=== PATIENT | female | born 1950 ===

== ENCOUNTER 2018-12-16 18:00 | Inpatient (IN) | payer OTHER ==
[2018-12-16 18:29] VITALS: BMI 30.7
--- NOTE | 2018-12-16 19:18 | PDOC ---
History of Present Illness - General Chief Complaint: Altered Mental Status Stated Complaint: AMS - History of Present Illness Initial Comments: 12/16/18 19:15 68 yo Female with PMH HTN, HLD, CHF?, Recent cath 3 weeks ago at [facility]?, very poor historian, comes from home stating her son told her to come for evaluation. She is confused and unable to adequately explain why she is here. Going through thorough review of systems she complains of neck weakness and pain , chest pain similar to her pain 3 weeks ago prior to her procedure, abdominal pain, and some confusion. She denies other symptoms. Of note she is unable to state how she got here but is able to confirm ambulence when prompted. She is oriented to time place and self, however is unable to explain exactly why she is here or what her current concerns are. Past History - Past Medical History Allergies/Adverse Reactions: Allergies Allergy/AdvReac Type Severity Reaction Status Date / Time No Known Allergies Allergy Verified 12/16/18 18:28 Cardiac Disorders: Yes (a fib, possible CABG 11/2018) COPD: No CHF: Yes Diabetes: Yes HTN: Yes Hypercholesterolemia: Yes - Surgical History Cardiac Surgery: Yes (mitral valve replacement.) - Suicide/Smoking/Psychosocial Hx Smoking History: Never smoked Have you smoked in the past 12 months: No Information on smoking cessation initiated: No Hx Alcohol Use: No Drug/Substance Use Hx: No *Physical Exam - Vital Signs Last Vital Signs Temp Pulse Resp BP Pulse Ox 100.6 F H 109 H 16 96/61 96 12/16/18 18:39 12/16/18 18:00 12/16/18 18:00 12/16/18 18:00 12/16/18 18:00 - Physical Exam Comments: 12/16/18 19:16 GEN: A&O (though confused), no acute distress HEENT: dry mucus membranes NECK: supple, no lymphadenopathy HEART: Irregularly irregular LUNGS: CTA b/l ABDOMEN: Soft, nontender EXTREMITIES: trace peripheral edema, no calf tenderness NEURO: Appropriate responses, though alternates between languages, confused but appropriate, 3/5 strength LLE, 4/5 strength RLE, 5/5 b/l UE, difficult to comply with senation testing. Moderate Sedation - Procedure Monitoring Vital Signs: Procedure Monitoring Vital Signs Temperature 100.6 F H 12/16/18 18:39 Pulse Rate 109 H 12/16/18 18:00 Respiratory Rate 16 12/16/18 18:00 Blood Pressure 96/61 12/16/18 18:00 O2 Sat by Pulse Oximetry (%) 96 12/16/18 18:00 ED Treatment Course - LABORATORY CBC & Chemistry Diagram: 12/16/18 20:41 12/16/18 20:41 Medical Decision Making - Medical Decision Making 12/16/18 19:44 68 yo female with questionable PMH (first visit here) unable to give good history, febrile, tachycardic, confused with chest pain similar to recent chest pain which apparently led to cath at [facility]. Will pursue full septic and cardiac workup at this time. No focal neurological deficits though somewhat unable to comply with sensation testing, do not feel this is acute CVA at this point. Will check, CBC, CMP, Cardiac Profile, EKG, UA/ culture, blood culture, CXR, Lactic acid, VBG (as part of septic workup), influenza swab and reevaluate following labs 12/16/18 20:09 Discussed with son who states she had a recent cardiac cath and has been at [facility] for rehab for about 12 weeks or so. States she was not satisfied and returned home in the last few days. States she has generally been complaining of not feeling well the last few days since being home. He called EMS to bring her in for evaluation. He is unable to come in at this time as his father (her ) apparently has had a CVA with significant impairment. Labs and imaging pending. EKG with A-flutter with variable AV block 12/16/18 20:57 UA negative 12/17/18 01:19 Pt states her pain is improved following IV tylenol and 1L bolus and that she is feeling somewhat better. She is still slightly confused and unable to ambulate. Can transfer from bed to wheelchair with significant assistance 12/17/18 02:07 Lactic acid improving following one Liter. Will discuss with hospitalist for admission considering patient is still confused and unable to ambulate with some complaint of dizziness. Patient will likely need placement in SNF or rehab facility and neurological evaluation and management for what is likely Moderate to severe Parkinson's and possible dimentia *DC/Admit/Observation/Transfer Diagnosis at time of Disposition: Need for assistance due to unsteady gait, Parkinsonian tremor, Subcortical dementia - Discharge Dispostion Condition at time of disposition: Guarded Decision to Admit order: Yes - Referrals - Patient Instructions - Post Discharge Activity
--- NOTE | 2018-12-16 20:30 | PDOC ---
Attending Attestation - HPI HPI: 12/16/18 20:58 The patient is a 68 year old female, with a significant past medical history of HTN, HLD, and recent cardiac catheterization, who presents to the emergency department with, dizziness. Patient is a poor historian and speaks primarily Yoruba. Allergies: NKDA - Physicial Exam PE: 12/16/18 20:58 GENERAL: Well-appearing, well-nourished. No apparent distress. HEENT: Normocephalic, atraumatic. PERRL, EOM intact. CARDIOVASCULAR: Tachycardic. Irregularly, irregular. PULMONARY: Clear to auscultation bilaterally. ABDOMEN: Soft, non-distended, non-tender. EXTREMITIES: Normal ROM in all four extremities. No gross deformities. SKIN: Warm, dry. No rash NEUROLOGICAL: Poor historian. No focal neurological deficits. <Stephen Jara - Last Filed: 12/16/18 20:58> - Resident Resident Name: Calos Bowens - ED Attending Attestation I have performed the following: I have examined & evaluated the patient, The case was reviewed & discussed with the resident, I agree w/resident's findings & plan, Exceptions are as noted - HPI HPI: 12/16/18 20:27 68 yo female - Medical Decision Making 12/17/18 01:41 68-year-old female brought in by ambulance from her home for reported altered mental status. She lives with his son and he called for an ambulance. Until recently the patient was living at a rehabilitation center ,[facility], located in [place].. She had some disagreements with the staff and wanted to leave. She had only spent one day with her son at home. Past medical history insulin-dependent diabetes, coronary artery disease, 3 weeks ago she had a cardiac catheterization was [facility], [facility], had hep c that was treated Spoke with her son. Her primary care physician is Dr.Santos Amaro her pharmacy [address] [phone] SOCIAL HISTORY _ lives with son 12/17/18 02:02 12/17/18 02:22 pt has some dementia, has difficulty w ambulation neg trop elevated lactic acid that decreased with IV fluids ct scan head negative for any acute intracranial pathology pt ti be admitted <Lauren Beckman - Last Filed: 12/17/18 02:26> Attestations - Attestations 12/16/18 21:08 Documentation prepared by Stephen Jara, acting as medical lab technologist for Lauren Beckman MD. <Stephen Jara - Last Filed: 12/16/18 20:58>
[2018-12-16 20:52] LABS: URINE APPEARANCE SLCLOUDY; URINE BILIRUBIN NEGATIVE (<2.0 mg/dL); URINE COLOR LTYELLOW; URINE GLUCOSE (UA) 1+ (NEGATIVE); URINE KETONE NEGATIVE (NEGATIVE); URINE LEUK ESTERASE NEGATIVE (NEGATIVE); URINE NITRITE NEGATIVE (NEGATIVE); URINE PROTEIN NEGATIVE (NEGATIVE)
[2018-12-16 21:04] LABS: BASO % 0.6 % (0-2.0); EOS % 0.7 % (0-4.5); HEMATOCRIT 34.8 % (32.4-45.2); HEMOGLOBIN 11.7 GM/dL (10.7-15.3); LYMPH % 20.1 % (8-40); MCH 28.9 pg (25.7-33.7); MCHC 33.6 g/dl (32.0-36.0); MEAN CELL VOLUME 86.1 fl (80-96); MEAN PLT VOLUME 9.1 fl (7.5-11.1); MONO % 6.5 % (3.8-10.2); NEUT % 72.1 % (42.8-82.8); PLATELET COUNT 321 K/MM3 (134-434); RBC 4.05 M/mm3 (3.60-5.2); RDW 17.8 % (11.6-15.6); WHITE BLOOD COUNT 11.7 K/mm3 (4.0-10.0)
[2018-12-16] MEDS ORDERED: LACTATED RINGERS SOLUTION 1000 ML INFUS.BAG IV ONE (21:32)
[2018-12-16 21:49] LABS: ALK PHOS 87 U/L (45-117); ANION GAP 12 MMOL/L (8-16); BILIRUBIN,TOTAL 0.9 mg/dL (0.2-1); BLOOD UREA NITROGEN 9 mg/dL (7-18); CALCIUM 9.2 mg/dL (8.5-10.1); CHLORIDE 99 mmol/L (98-107); CO2 24 mmol/L (21-32); CREATININE 0.9 mg/dL (0.55-1.3); GLUCOSE,RANDOM 198 mg/dL (74-106); POTASSIUM 4.4 mmol/L (3.5-5.1); SGOT/AST 23 U/L (15-37); SGPT/ALT 24 U/L (13-61); SODIUM 135 mmol/L (136-145)
[2018-12-16] MEDS ORDERED: ACETAMINOPHEN 1000 MG/100 ML VIAL (NON FORMULARY) IVPB ONE (22:53)
[2018-12-16] MEDS ORDERED: ACETAMINOPHEN INJECTION 100 ML IVPB ONE (23:07)
[2018-12-17] MEDS ORDERED: LACTATED RINGERS SOLUTION 1,000 ML/1,000 ML INFUS.BAG IV SCH (03:15)
--- NOTE | 2018-12-17 03:15 | PN ---
Teaching Attending Note Name of Resident: Humera Alanis ATTENDING PHYSICIAN STATEMENT I saw and evaluated the patient. I reviewed the resident's note and discussed the case with the resident. I agree with the resident's findings and plan as documented. SUBJECTIVE: Seen and examined; please refer to resident note for further historical documentation. Dr Lassiter translated for ER and MS3 (fluent in Yakut) translated for our team; history was further limited by baseline neuro status with likely dementia elements (to be discussed under A and P). She presents from home with weakness, dizziness, chest pain, and abdominal pain; she also endorses a history of dysuria. She has no records at this hospital and this is her first time here; she was brought here from home in [place]. She recently was DCd from the [facility] in [place] due to not getting along with her roommate and was sent home yesterday; son called EMS to bring in today. Symptoms are nonspecific. She is found to be febrile but with stable hemodynamics; lactate was initially positive but did trend down with 1L of IVF. She appeared dehydrated and was keenly responsive and answered questions but was somewhat slow in her responses. Old records pending from [facility] and her old facility; have called several times. 10 sys ROS done and negative aside from HPI PMH (appears to be HTN, HLD, CHF, recent cath with potential MV repair? done several weeks ago at [facility]), PSH, Family hx, Social hx reviewed Medication list reviewed; pending reconciliation OBJECTIVE: VS, labs, imaging reviewed NAD, AAO, resting comfortably in bed NC AT EOMI PERRLA; tacky mm's RRR s1/2 no gallops or rubs; slight systolic murmur noted Lungs CTAB, w/ sym exp Mildly tender ND +BS CN2-12 wnl, no fnd, slow responses, MCI at least aparent when questioned EKG reviewed; pending prior studies for comparison CT prelim read shows indeterminate fracture of T11 vertebral body with some characteristics suggesting it is recent. Cardiomegaly noted. Somewhat distended gallbladder. Large amount of stool in colon that is not yet impacted CT head unremarkable ASSESSMENT AND PLAN: Patient presents with various complaints (Abdominal pain, chest pain, dysuria, dizziness) found to have slightly elevated lactate, mild tachycardia, compression fx T11 (likely new), and severe constipation bordering on impaction. She had a recent cath (+MV repair?) in [place] and recently left the nursing facility for personal reasons. History is limited due to no old records, etc. Son states that she had the cath but was unsure what was done with the procedure. Dr. Lassiter saw in the ER and stated that the patient likely has subcortical dementia and at least moderate Parkinson's and will be consulted. PMH significant for aflutter on eliquis (she actually remembers she used to be on xarelto), likely CHF, likely HTN. HLD. Pending records. 1) AMS vs. dementia -Seen by Dr Lassiter in ER; concern for subcortical dementia and PD (at least moderate). Consulting him; will defer further treatment and monitoring to his service. will order seizure precautions and neuro checks -Fall precautions -She is keenly responsive but with slow thought progression and marked forgetfulness 2) Low-grade fever with elevated lactate -Resolved with hydration; restart lasix when clinically appropriate. Investigating source. CT shows some features suggestive of cirrhosis, re- checking UA (claims dysuria but first one is negative). Had diarrhea so can check lactoferrin/cdif/WBCs but no colitis was seen on the CT, nor was there any diverticulitis, etc. No meningeal signs. 3) Recent Cath -Indicates there may have been something done with her MV vs. standard cath; will go ahead and obtain old records. They are pending being faxed over as this note is written. 4) Likely CHF -Will check old records if no echo recently then will check; monitor QD weights and strict Is and Os. On home lasix (verified with her pharmacy) and got fluids overnight with no issues with her volume status. Will monitor fluid status this AM, consider CV consult, and restart the lasix when clinically appropriate. On low dose IVF now; can likely stop if stable in the AM. 5) Compression Fx -Investigating if kyphoplasty done here; will involve appropriate specialists in the AM an provide pain control. When old records come can check if this is indeed new as some radiographic features suggest 6) HLD -Continue statin 7) A flutter -Continue eliquis, rate control. Didn't get PM dose likely explaining the tachycardia 8) DM -Continue home insulin with SSI 9) Severe constipation with stated diarrhea -PRN miralax and consider disimpacting. The diarrhea could be overflow around it but will test.
--- NOTE | 2018-12-17 03:17 | HP ---
CHIEF COMPLAINT: abdominal pain, AMS PCP: Dr. Poncho Amaro ([place]) HISTORY OF PRESENT ILLNESS: 68F w/ pmhx of HTN/HLD, ? CHF, recent catheterization about x3 weeks ago, was brought to the ED by her son due to altered mental status since last Sunday. Per pt's son, pt was recently hospitalized at [facility] and underwent went a cardiac catheterization with some questionable "mitral valvular disease" . After discharge, she was sent to rehab facility to continue PT and remained there for 1 week, however when her son came to visit last Sunday, he was dissatisfied with the treatment at the facility and found several bruises on his mother. As a result, he chose to pull his mother out of the facility and brought her home. Unfortunately, starting the following Sunday, he started noticing that his mother was having lapses in memory, getting more lethargic, and would start switching between speaking in her [place] tongue (Spanish) and Chilean. He denies any prior history of neurological problems and states at baseline his mom is usually sharp. He also says since the cardiac cath, she has been too weak to walk herself which is why she was originally sent to the rehab facility to continue PT. Upon review of systems, pt states she has persistent non-radiating L-sided chest pain that is similar in nature to the chest pain she had prior to the cardiac cath. Limited ROS could be ascertained from patient due to current mental status. Request for records have been sent to [facility] for further review. POC: Franc Sanchez (son) - ER course was notable for: (1) Temp 100.6, HR 109, BP 96/61, WBC 11.7, Na 135, Glu 198, Lac 3.2 > 2.7 (2) Trops neg x1, U/A neg, Rapid flu A/B neg (3) IV Tylenol, LR 1L Recent Travel: Denies PAST MEDICAL HISTORY: HTN HLD ? CHF recent catheterization PAST SURGICAL HISTORY: Denies Social History: Smoking: Denies Alcohol: Denies Drugs: Denies Family History: DM Allergies No Known Allergies Allergy (Verified 12/16/18 18:28) Home Medications Medication Instructions Recorded Apixaban [Eliquis] 5 mg PO BID 12/17/18 Aspirin [Ecotrin] 81 mg PO DAILY 12/17/18 Famotidine [Pepcid] 40 mg PO DAILY 12/17/18 Fluphenazine HCl 5 mg PO DAILY 12/17/18 Folic Acid 1 mg PO DAILY 12/17/18 Insulin Glargine,Hum.rec.anlog 24 unit SQ HS 12/17/18 [Lantus] Insulin Lispro [Humalog] 15 unit SQ AM 12/17/18 Metoprolol Tartrate 125 mg PO Q8H 12/17/18 Rosuvastatin Calcium [Crestor] 20 mg PO HS 12/17/18 REVIEW OF SYSTEMS CONSTITUTIONAL: +generalized weakness, +fever Absent: fever, chills, diaphoresis, malaise, loss of appetite, weight change HEENT: Absent: rhinorrhea, nasal congestion, throat pain, throat swelling, difficulty swallowing, mouth swelling, ear pain, eye pain, visual changes CARDIOVASCULAR: +chest pain Absent: chest pain, syncope, palpitations, irregular heart rate, lightheadedness , peripheral edema RESPIRATORY: Absent: cough, shortness of breath, dyspnea with exertion, orthopnea, wheezing, stridor, hemoptysis GASTROINTESTINAL: +abd pain, +watery diarrhea, +vomiting Absent: abdominal distension, nausea, vomiting, constipation GENITOURINARY: +dysuria Absent: frequency, urgency, hesitancy, hematuria, flank pain, genital pain MUSCULOSKELETAL: +neck pain L posterior side Absent: myalgia, arthralgia, joint swelling, back pain, neck pain NEUROLOGIC: +dizziness, +mental status changes Absent: headache, focal weakness or paresthesias, unsteady gait, seizure PHYSICAL EXAMINATION Vital Signs - 24 hr 12/16/18 12/16/18 18:00 18:39 Temperature 97.3 F L 100.6 F H Pulse Rate 109 H Respiratory 16 Rate Blood Pressure 96/61 O2 Sat by Pulse 96 Oximetry (%) GENERAL: Awake, alert and oriented. NAD. Pleasant female. HEENT: AT/NC. EOMI. DENNY. NECK: Normal range of motion, supple without lymphadenopathy, JVD, or masses. LUNGS: CTA B/L. No wheezes noted. HEART: Irregularly irregular. No murmurs noted. ABDOMEN: Soft, mild TTP in b/l lower quadrants. No guarding or rebound tenderness. MUSCULOSKELETAL: Normal range of motion at all joints. No bony deformities or tenderness. EXTREMITIES: No peripheral edema noted b/l. 2+ dorsalis pedis pulses and radial pulses b/l. NEUROLOGICAL: Normal speech. Facial symmetry noted. Laboratory Results - last 24 hr 12/16/18 12/16/18 12/16/18 19:30 20:22 20:41 WBC 11.7 H RBC 4.05 Hgb 11.7 Hct 34.8 MCV 86.1 MCH 28.9 MCHC 33.6 RDW 17.8 H Plt Count 321 MPV 9.1 Absolute Neuts (auto) 8.5 H Neutrophils % 72.1 Lymphocytes % 20.1 Monocytes % 6.5 Eosinophils % 0.7 Basophils % 0.6 Nucleated RBC % 0 PT with INR Cancelled INR Cancelled PTT (Actin FS) Cancelled Sodium Potassium Chloride Carbon Dioxide Anion Gap BUN Creatinine Creat Clearance w eGFR Random Glucose Lactic Acid Calcium Total Bilirubin AST ALT Alkaline Phosphatase Creatine Kinase CK-MB (CK-2) Troponin I Total Protein Albumin Urine Color Ltyellow Urine Appearance Slcloudy Urine pH 7.0 Ur Specific Murphy 1.008 L Urine Protein Negative Urine Glucose (UA) 1+ H Urine Ketones Negative Urine Blood Negative Urine Nitrite Negative Urine Bilirubin Negative Urine Urobilinogen 2.0 H Ur Leukocyte Esterase Negative Influenza A (Rapid) Influenza B (Rapid) 12/16/18 12/16/18 12/16/18 20:41 20:41 20:52 WBC RBC Hgb Hct MCV MCH MCHC RDW Plt Count MPV Absolute Neuts (auto) Neutrophils % Lymphocytes % Monocytes % Eosinophils % Basophils % Nucleated RBC % PT with INR INR PTT (Actin FS) Sodium 135 L Potassium 4.4 Chloride 99 Carbon Dioxide 24 Anion Gap 12 BUN 9 Creatinine 0.9 Creat Clearance w eGFR > 60 Random Glucose 198 H Lactic Acid 3.2 H* Calcium 9.2 Total Bilirubin 0.9 AST 23 ALT 24 Alkaline Phosphatase 87 Creatine Kinase 59 CK-MB (CK-2) < 1.0 Troponin I < 0.02 Total Protein 8.0 Albumin 3.0 L Urine Color Urine Appearance Urine pH Ur Specific Murphy Urine Protein Urine Glucose (UA) Urine Ketones Urine Blood Urine Nitrite Urine Bilirubin Urine Urobilinogen Ur Leukocyte Esterase Influenza A (Rapid) Negative Influenza B (Rapid) Negative 12/17/18 01:01 WBC RBC Hgb Hct MCV MCH MCHC RDW Plt Count MPV Absolute Neuts (auto) Neutrophils % Lymphocytes % Monocytes % Eosinophils % Basophils % Nucleated RBC % PT with INR INR PTT (Actin FS) Sodium Potassium Chloride Carbon Dioxide Anion Gap BUN Creatinine Creat Clearance w eGFR Random Glucose Lactic Acid 2.7 H* Calcium Total Bilirubin AST ALT Alkaline Phosphatase Creatine Kinase CK-MB (CK-2) Troponin I Total Protein Albumin Urine Color Urine Appearance Urine pH Ur Specific Murphy Urine Protein Urine Glucose (UA) Urine Ketones Urine Blood Urine Nitrite Urine Bilirubin Urine Urobilinogen Ur Leukocyte Esterase Influenza A (Rapid) Influenza B (Rapid) CONSULT: Neuro- Dr. Lassiter Cardio- Dr. Gallo IMAGING: * EKG: a fib, HR 107, QTc 491 ms (no prior EKG to compare) * CXR: * Head CT: No acute IC pathology. * CTAP: pending ASSESSMENT/PLAN: 68F w/ pmhx of HTN/HLD, ? CHF, recent catheterization about x3 weeks ago, was brought to the ED by her son due to altered mental status and generalized weakness. #Acute Metabolic Encephalopathy; r/o infectious vs. neurological etiology -Pt states he started noticing mental status changes this past Sunday and has had generalized weakness since cardiac procedure at [facility]. -Head CT neg -Neuro consult ordered -Initial U/A neg, repeat U/A ordered -BCx/UCx ordered -Initial lactate 3.2 > 2.7; Pt was also febrile at 100.6, and had WBC 11.7, will treat empirically with IV Ceftriaxone for now. -CTAP ordered to r/o intra-abdominal source of infection -PT #Chest pain -Pt complaining of similar chest pain prior to cath that was done -ASA 81 mg QD -Repeat trop; Mag/Phos, A1c, lipase ordered -Cardio consult (Dr. Gallo) -EKG noted above; afib, HR 107, QTc prolonged at 491 ms -avoid QTc prolonging agents #Diarrhea -Stool cx, fecal WBCs, Cdiff tox/Ag, lactoferrin ordered -Monitor BM #Afib Cont home med: Metoprolol Tartrate 125 mg PO Q8H (hold if systolic <120) #HTN Cont home med: Metoprolol Tartrate 125 mg PO Q8H (hold if systolic <120) #HLD Cont home med: Crestor 20 mg PO HS #Prophylaxis -Lovenox 40 QD -Ranitidine 300 QD #FEN -LR @ 42 -recheck jennifer in AM (Na) -sodium-controlled diet dispo -admit to tele inpt -full code -medications have been reconciled with pharmacy -record release form sent to [facility], awaiting records Visit type - Emergency Visit Emergency Visit: Yes ED Registration Date: 12/17/18 Care time: The patient presented to the Emergency Department on the above date and was hospitalized for further evaluation of their emergent condition. - New Patient This patient is new to me today: Yes Date on this admission: 12/18/18 - Critical Care Critical Care patient: No
[2018-12-17] MEDS ORDERED: METOPROLOL TARTRATE 25 MG TABLET (FP) PO SCH ×2 (04:30→04:41)
[2018-12-17] MEDS ORDERED: METOPROLOL TARTRATE 50 MG TABLET (FP) ONE ×2 (06:23→13:28)
[2018-12-17] MEDS ORDERED: METOPROLOL TARTRATE 25 MG TABLET (FP) ONE ×2 (06:23→13:28)
[2018-12-17] MEDS ORDERED: INSULIN (NOVOLOG) ASPART 100 UNITS/ML 10ML VIAL ONE ×2 (06:24→13:53)
[2018-12-17] MEDS: METOPROLOL TARTRATE 100 MG, METOPROLOL TARTRATE 25 MG PO SCH ×2 (06:30→13:43)
[2018-12-17 08:50] LABS: BASO % 0.9 % (0-2.0); EOS % 0.7 % (0-4.5); HEMATOCRIT 34.7 % (32.4-45.2); HEMOGLOBIN 11.7 GM/dL (10.7-15.3); LYMPH % 24.9 % (8-40); MCH 29.1 pg (25.7-33.7); MCHC 33.7 g/dl (32.0-36.0); MEAN CELL VOLUME 86.3 fl (80-96); MEAN PLT VOLUME 9.4 fl (7.5-11.1); MONO % 6.6 % (3.8-10.2); NEUT % 66.9 % (42.8-82.8); PLATELET COUNT 331 K/MM3 (134-434); RBC 4.02 M/mm3 (3.60-5.2); RDW 17.5 % (11.6-15.6)
[2018-12-17 09:16] LABS: INR 1.49 (0.83-1.09); PROTHROMBIN TIME (PATIENT) 17.6 SEC (9.7-13.0)
[2018-12-17 09:19] LABS: ACTIVATED PTT 32.4 SECONDS (25.2-36.5)
[2018-12-17 09:45] LABS: ALBUMIN 2.9 g/dl (3.4-5.0); ALK PHOS 85 U/L (45-117); ANION GAP 11 MMOL/L (8-16); BILIRUBIN,TOTAL 1.2 mg/dL (0.2-1); BLOOD UREA NITROGEN 9 mg/dL (7-18); CALCIUM 8.8 mg/dL (8.5-10.1); CHLORIDE 99 mmol/L (98-107); CO2 23 mmol/L (21-32); CREATININE 1.1 mg/dL (0.55-1.3); LIPASE 86 U/L (73-393); MAGNESIUM 1.7 mg/dL (1.8-2.4); PHOSPHOROUS 4.3 mg/dL (2.5-4.9); POTASSIUM 4.3 mmol/L (3.5-5.1); SGOT/AST 15 U/L (15-37); SGPT/ALT 22 U/L (13-61); SODIUM 134 mmol/L (136-145); TOT PROT 7.7 g/dl (6.4-8.2)
[2018-12-17 09:57] LABS: GLUCOSE,RANDOM 313 mg/dL (74-106)
[2018-12-17] MEDS ORDERED: ENOXAPARIN NA (PORCINE) 40 MG/0.4 ML DISP.SYRIN SQ SCH (10:00)
[2018-12-17] MEDS ORDERED: FOLIC ACID 1 MG TABLET (FP) PO SCH (10:00)
[2018-12-17] MEDS ORDERED: RANITIDINE HCL 150 MG TABLET (FP) PO SCH (10:00)
[2018-12-17] MEDS ORDERED: CEFTRIAXONE 1 GM in DEXTROSE 5%-WATER - 50 ML IVPB SCH (10:00)
[2018-12-17] MEDS ORDERED: ASPIRIN COATED 81 MG TABLET.EC PO SCH (10:00)
[2018-12-17] MEDS ORDERED: cefTRIAXone SODIUM 1 GM VIAL ONE (10:38)
[2018-12-17] MEDS ORDERED: DEXTROSE 5%-WATER - 50 ML IVPB ONE (10:38)
--- NOTE | 2018-12-17 10:45 | EKG ---
Test Reason : Blood Pressure : / mmHG Vent. Rate : 112 BPM Atrial Rate : 326 BPM P-R Int : 000 ms QRS Dur : 080 ms QT Int : 286 ms P-R-T Axes : 000 -38 -45 degrees QTc Int : 390 ms ATRIAL FLUTTER WITH VARIABLE A-V BLOCK LEFT AXIS DEVIATION NONSPECIFIC T WAVE ABNORMALITY ABNORMAL ECG Confirmed by Neil Ramirez MD ([id number]) on 12/17/2018 10:45:28 AM Referred By: ALFREDITO COMBS DR Confirmed By:Neil Ramirez MD
--- NOTE | 2018-12-17 10:50 | EKG ---
Test Reason : Blood Pressure : / mmHG Vent. Rate : 107 BPM Atrial Rate : 300 BPM P-R Int : 000 ms QRS Dur : 074 ms QT Int : 368 ms P-R-T Axes : 000 -32 061 degrees QTc Int : 491 ms POOR DATA QUALITY, INTERPRETATION MAY BE ADVERSELY AFFECTED ATRIAL FLUTTER WITH VARIABLE A-V BLOCK LEFT AXIS DEVIATION NONSPECIFIC T WAVE ABNORMALITY ABNORMAL ECG NO PREVIOUS ECGS AVAILABLE Confirmed by Neil Ramirez MD ([id number]) on 12/17/2018 10:49:46 AM Referred By: Confirmed By:Neil Ramirez MD
[2018-12-17] MEDS ORDERED: INSULIN (LEVEMIR) 100 UNITS/ML UNITS SQ ONE (11:30)
[2018-12-17] MEDS ORDERED: MAGNESIUM SULF 50% (8.12 MEQ/2 ML-1 GM VIAL) IVPB ONE (11:45)
--- NOTE | 2018-12-17 12:54 | CONSULT ---
Consult - text type - Consultation Consultation Note: NEUROSURGERY CONSULTATION Mayur Lamb is a 68 year old [place]i female who underwent a Cardiac procedure 3 weeks ago and was brought to the ER with an altered mental status. Patient is better in Telugu and only limited discussion was possible. Patient with elevated lactic acid and has concern for metabolic encephalopathy. Head CT is largely unremarkable for acute pathology, however, there is some ventriculomegally. Patient noted to have some gait difficulty and complains of tremors in her hands. She appears to have a mask face and may have Parkinson's Disease. 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 I was unable to ascertain whether she has urinary incontinence. Dr. Lassiter will be seeing the patient later today and I discussed these findings with him. I will review his findings and collaborate in development of a treatment plan.
[2018-12-17 13:32] LABS: CHOLESTEROL 110 mg/dL (50-200); HDL CHOLESTEROL 45 mg/dL (40-60); TRIGLYCERIDES 123 mg/dL (0-150)
[2018-12-17] MEDS: APIXABAN 2.5 MG TABLET PO SCH (13:43)
[2018-12-17] MEDS: INSULIN SLIDING SCALE (NOVOLOG) 1 VIAL SQ SCH ×2 (13:55→18:11)
--- NOTE | 2018-12-17 13:58 | ECHO ---
Name: ELIANA WALTER Exam:Adult Echocardiogram Study Date: 12/17/2018 12:35 PM Age: 68 yrs Reason For Study: R/O Vegetation Height: 62 in Weight: 168 lb BSA: 1.8 m2 MMode/2D Measurements & Calculations IVSd: 0.90 cm Ao root diam: 2.8 cm LVIDd: 4.0 cm LA dimension: 4.5 cm LVIDs: 3.0 cm LVPWd: 0.87 cm EDV(Teich): 71.1 ml LAV (MOD-bp): 92.0 ml ESV(Teich): 33.8 ml Doppler Measurements & Calculations MV V2 max: 202.1 cm/sec MV E max ant: 203.6 cm/sec MV max P.3 mmHg MV dec time: 0.15 sec MV V2 mean: 115.6 cm/sec MV mean P.4 mmHg MV V2 VTI: 44.8 cm MV P1/2t max ant: 197.1 cm/sec AI P1/2t: 503.7 msec MV P1/2t: 81.9 msec MVA(P1/2t): 2.7 cm2 MV dec slope: 704.9 cm/sec2 AI max ant: 224.0 cm/sec MR max ant: 460.5 cm/sec AI max P.1 mmHg MR max P.6 mmHg AI dec slope: 130.2 cm/sec2 TR max ant: 341.5 cm/sec PI end-d ant: 169.7 cm/sec TR max P.9 mmHg Med Peak E' Ant: 5.9 cm/sec Med E/e': 34.2 Lat Peak E' Ant: 7.3 cm/sec Lat E/e': 27.9 Procedure A complete two-dimensional transthoracic echocardiogram was performed (2D, M-mode, Doppler and color flow Doppler). Left Ventricle The left ventricle is normal in size. There is normal left ventricular wall thickness. Ejection Fract ion = 50%. Left ventricular systolic function is borderline reduced. The transmitral spectral Doppler flow pattern is suggestive of impaired LV relaxation. There is inferior wall mild hypokinesis. Right Ventricle The right ventricle is normal in size and function. Atria The left atrium is mildly dilated. The right atrium is mildly dilated. Mitral Valve The mitral valve leaflets appear thickened, but open well. There is mild mitral annular calcification . There is no vegetation seen on the mitral valve. There is mild mitral regurgitation. Tricuspid Valve The tricuspid valve is not well visualized, but is grossly normal. There is no tricuspid valve vegeta tion. There is moderate to severe tricuspid regurgitation. Right ventricular systolic pressure is elevated at 52 mmhg. Assuming the RA pressure is 5 mmHg. There is moderate pulmonary hypertension. Aortic Valve The aortic valve is normal in structure and function. There is no aortic valvular vegetation. Pulmonic Valve The pulmonic valve is not well seen, but is grossly normal. There is no vegetation on the pulmonic va lve. Great Vessels The aortic root is normal size. Pericardium/Pleura There is no pericardial effusion. There is no pleural effusion. Interpretation Summary There is no evidence of a mass or vegetation. This does not rule out endocarditis. The left ventricle is normal in size. Ejection Fraction = 50%. Left ventricular systolic function is borderline reduced. There is inferior wall mild hypokinesis. The right ventricle is normal in size and function. The left atrium is mildly dilated. The right atrium is mildly dilated. There is mild mitral annular calcification. The mitral valve leaflets appear thickened, but open well. There is mild mitral regurgitation. There is moderate to severe tricuspid regurgitation. Right ventricular systolic pressure is elevated at 52 mmhg. There is moderate pulmonary hypertension. MD Neil Ramirez 12/17/2018 01:57 PM
--- NOTE | 2018-12-17 14:52 | CON.CARD ---
Consult Consult Specialty:: cardiology Reason for Consultation:: abdoninal pain; ureteral stone - History of Present Illness History of Present Illness: 68 yo Female (melinda. [place]) with PMH HTN, HLD, systoic and diastolic CHF ( borderline reduced LVEF on 2019 ECHO), Recent cath 3 weeks ago at [facility]?, Atrial fibrillation, very poor historian, comes from home stating her son told her to come for evaluation. She is confused and unable to adequately explain why she is here. Going through thorough review of systems she complains of neck weakness and pain, chest pain similar to her pain 3 weeks ago prior to her procedure, abdominal pain, and some confusion. She denies other symptoms. Of note she is unable to state how she got here but is able to confirm ambulence when prompted. She is oriented to time place and self, however is unable to explain exactly why she is here or what her current concerns are. 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: Yes: Dementia Cardio/Vascular: Yes: AFIB, CHF (borderline reduced LVEF on 2019 ECHO), HTN Reproductive: Yes: Postmenopausal ...: No - Alcohol/Substance Use Hx Alcohol Use: No - Smoking History Smoking history: Never smoked Have you smoked in the past 12 months: No Home Medications - Allergies Allergies/Adverse Reactions: Allergies Allergy/AdvReac Type Severity Reaction Status Date / Time No Known Allergies Allergy Verified 12/16/18 18:28 - Home Medications Home Medications: Ambulatory Orders Apixaban [Eliquis] 5 mg PO BID 12/17/18 Aspirin [Ecotrin] 81 mg PO DAILY 12/17/18 Famotidine [Pepcid] 40 mg PO DAILY 12/17/18 Fluphenazine HCl 5 mg PO DAILY 12/17/18 Folic Acid 1 mg PO DAILY 12/17/18 Insulin Glargine,Hum.rec.anlog [Lantus] 24 unit SQ HS 12/17/18 Insulin Lispro [Humalog] 15 unit SQ AM 12/17/18 Metoprolol Succinate [Toprol Xl] 200 mg PO BID 12/17/18 Metoprolol Tartrate 125 mg PO Q8H 12/17/18 Rosuvastatin Calcium [Crestor] 20 mg PO HS 12/17/18 Review of Systems Unable to obtain ROS, reason: confusion - Risk Factors Known Risk Factors: Yes: Age, Hypertension, Other (CHF) Vital Signs: Vital Signs Temperature 97.5 F L 12/17/18 10:00 Pulse Rate 126 H 12/17/18 10:00 Respiratory Rate 18 12/17/18 10:00 Blood Pressure 125/83 12/17/18 10:00 O2 Sat by Pulse Oximetry (%) 94 L 12/17/18 05:26 Constitutional: Yes: Anxious Eyes: Yes: WNL HENT: Yes: WNL Neck: Yes: WNL Respiratory: Yes: Regular Gastrointestinal: Yes: Soft Renal/: No: Anuria Cardiovascular: Yes: Tachycardia, Pulse Irregular JVD: No Carotid Bruit: No PMI: Non-Displaced Heart Sounds: Yes: S1 (varies in intensity), S2 Musculoskeletal: Yes: WNL Extremities: Yes: WNL Edema: No Peripheral Pulses WNL: Yes Integumentary: Yes: WNL Neurological: Yes: Confusion Psychiatric: Yes: Other - Other Data Labs, Other Data: CBC, BMP 12/17/18 08:15 12/17/18 08:15 INR, PTT INR 1.49 (0.83-1.09) H 12/17/18 08:15 Troponin, BNP 12/16/18 12/17/18 20:41 08:15 Troponin I < 0.02 < 0.02 Troponin, BNP 12/16/18 12/17/18 20:41 08:15 Troponin I < 0.02 < 0.02 Abnormal Lab Results 12/17/18 12/17/18 12/17/18 08:15 08:15 08:15 Hgb Hct RDW 17.5 H PT with INR 17.60 H INR 1.49 H Sodium 134 L Random Glucose 313 H* Hemoglobin A1c % Lactic Acid Magnesium 1.7 L Total Bilirubin 1.2 H Albumin 2.9 L TSH 6.77 H 12/17/18 12/17/18 12/18/18 08:15 11:35 05:30 Hgb 10.3 L Hct 31.0 L RDW 17.7 H PT with INR INR Sodium Random Glucose Hemoglobin A1c % 7.7 H Lactic Acid 2.4 H* Magnesium Total Bilirubin Albumin TSH 12/18/18 05:30 Hgb Hct RDW PT with INR INR Sodium Random Glucose 125 H Hemoglobin A1c % Lactic Acid Magnesium Total Bilirubin Albumin TSH Imaging - Results Chest X-ray: Image Reviewed EKG: Image Reviewed (AF, RVR) Problem List - Problems (1) Hypothyroid Assessment/Plan: elevated TSH; f/u Free T3 and free T4. Code(s): E03.9 - HYPOTHYROIDISM, UNSPECIFIED (2) Systolic CHF Assessment/Plan: ECHO: borderline reduced LVEF; mod-severe TR, with moderate pulmonary HTN. On metoprolol. Start ACEI or ARB when BP allows (BP may improve once HR is better-controlled) for HTN, CHF (renal protection). BUN?cr, electrolytes, daily weight, Is and Os. Code(s): I50.20 - UNSPECIFIED SYSTOLIC (CONGESTIVE) HEART FAILURE (3) Confusion Assessment/Plan: ?Hx dementia. F/u with neurologist. Code(s): R41.0 - DISORIENTATION, UNSPECIFIED (4) Elevated lactic acid level Assessment/Plan: Afebrile; initially elevated WBC; ?source of infection. Anuric. Will give D5-1/2 NS 250 ml/hr x 2hrs, then 100 ml/hr. F/u Is and Os; f/u septic workup. Code(s): R79.89 - OTHER SPECIFIED ABNORMAL FINDINGS OF BLOOD CHEMISTRY (5) Hypomagnesemia Assessment/Plan: replete Mg, and keep 2.0-2.4. Code(s): E83.42 - HYPOMAGNESEMIA (6) Atrial fibrillation with rapid ventricular response Assessment/Plan: On metoprolol. F?u HR and BP. For transfer to telemetry. Discussed pt with Dr. Proctor. who received further information about Ms. Lamb: Pt c/o "chest pain" that led to a cardiac procedure at [facility] 10/08: ? Coronary stent. Mental status steadily deteriorating since 10/08. At NH: on metoprolol ER 200 mg bid, with metorpolol tartrate 125 mg tid prn. Also on Lasix 40 mg bid, Apixaban 5 mg bid; Losartan ?50 mg daily. Plan: Presently in AF with RVR. Will start metoprolol tartrate 100 mg tid (and metoprolol tartrate 5 mg IVP prn) . IVF. [facility] records of prior cardiac and other workup from [facility] and family. Code(s): I48.91 - UNSPECIFIED ATRIAL FIBRILLATION
[2018-12-17] MEDS ORDERED: DEXTROSE 5%-0.45% SALINE 1,000 ML IV SCH ×3 (18:30→20:31)
--- NOTE | 2018-12-17 18:51 | PN ---
Teaching Attending Note Name of Resident: Kelvin Wolfe ATTENDING PHYSICIAN STATEMENT I saw and evaluated the patient. I reviewed the resident's note and discussed the case with the resident. I agree with the resident's findings and plan as documented. SUBJECTIVE: No fever or chills. No pain. reports falling 5 days ago at home. limited hx despite using instrumentation technician phone. resident spoke to farzana, who reported mom mental status has not been the same since Sep, with gradual deterioration. in she was thought to be having a heart attack so she got a cath ( not clear of findings and procedure done ) . after dc she went to rehab then was taken out prematurely by family. OBJECTIVE: NAD, awake, alert, slow to respond but answers questins. knows she is in [facility] and her age, not year. HEENT:MMM, no JVD. nl oropharynx. CV: RRR, no mRG Lungs: bibasilar crackles Abd: sfot, Nt, ND , NL Bs Ext : no edema or erythema, no tenderness ASSESSMENT AND PLAN: 68 y/o lady with h/o valvular problems, HTN, DM, HLD, systolic CHF, recent cath at [facility] ( unknown results or procedure), she presented with non specific complaints , diarrhea , cp , and developed fever here. 1- fever : unclear source, urine is clean, cxray with no PNA , no skin lesions or rash. has diarrhea, ? eneteritis ( viral ) - monitor off abx - follow blood cx - obtained Echo which showed no vegetations - I don't think a procedure was done ( valve repair) but will obtain records form [facility] 2- Volume depletion : due to diarrhea, and maybe poor po intake. she is on lasix BID - hold lasix - spoke to Dr. Cifuentes who agrees and encourages IVF administration - monitor volume status 3- A fib/flutter : with RVR: - meds were confirmed with pharmacy: toprol 200 BID, and lopressor 125 mg TID PRN for SBP > 160 - this was d/w dr. Cifuentes who advised changing her regimen to Lopressor BID and dc toprol and add digoxin for rate control as BP on lower side - cont elliquis BID 4- H/o HTN: hold home losartan to give room for rate control. monitor on new BB regimen 5- H/O systolic heart failure: echo with mildly reduced EF. - hold lasix and monitor on IVF 6- Diarrhea: follow c diff nad stool cx if it recurs. 7- DM: issued her levemir last night with very elevated sugar . gave 10 units this am - resume her 24 units of levemir at HS - cont SSI 8- Change in mental status: declining gradually. case d/w Dr. pardo who thinks she might have NPH. - will follow recs 9- T11 Fx: appreciate Dr Pardo 's help Records were requested form [facility]. case was d/w Dr. Cifuentes
[2018-12-17] MEDS ORDERED: METOPROLOL TARTRATE 5 MG/5 ML VIAL IVPUSH PRN (18:57)
[2018-12-17] MEDS ORDERED: METOPROLOL TARTRATE 50 MG TABLET (FP) PO SCH (19:00)
[2018-12-17] MEDS ORDERED: SODIUM CHLORIDE 500 ML IV STA (19:25)
--- NOTE | 2018-12-17 19:30 | PN ---
Physical Exam: SUBJECTIVE: Patient seen and examined at bedside. Occitan speaking. Parminderacom interceptor used this am at bedside with team. OBJECTIVE: Vital Signs Period Temp Pulse Resp BP Sys/Castillo Pulse Ox Last 24 Hr 97.5 F-99.2 F 89-126 18-20 105-135/59-93 94-99 GENERAL: Awake slow to respond to questions. Masked like facies HEAD: Atraumatic/Normocephalic EYES: Sclera clear, EOMI ENT: MMM no JVD appreciated NECK: Trachea midline, full range of motion, supple. LUNGS: Crackles at bases HEART:RRR S1S2 nl ABDOMEN: Tender to deep palpation EXTREMITIES:Trace lower extremity edema . PSYCH: Normal mood, normal affect. Laboratory Results - last 24 hr 12/16/18 12/16/18 12/16/18 19:30 20:22 20:41 WBC 11.7 H RBC 4.05 Hgb 11.7 Hct 34.8 MCV 86.1 MCH 28.9 MCHC 33.6 RDW 17.8 H Plt Count 321 MPV 9.1 Absolute Neuts (auto) 8.5 H Neutrophils % 72.1 Lymphocytes % 20.1 Monocytes % 6.5 Eosinophils % 0.7 Basophils % 0.6 Nucleated RBC % 0 PT with INR Cancelled INR Cancelled PTT (Actin FS) Cancelled Sodium Potassium Chloride Carbon Dioxide Anion Gap BUN Creatinine Creat Clearance w eGFR POC Glucometer Random Glucose Hemoglobin A1c % Lactic Acid Calcium Phosphorus Magnesium Total Bilirubin AST ALT Alkaline Phosphatase Creatine Kinase CK-MB (CK-2) Troponin I Total Protein Albumin Triglycerides Cholesterol Total LDL Cholesterol HDL Cholesterol Lipase TSH Urine Color Ltyellow Urine Appearance Slcloudy Urine pH 7.0 Ur Specific [place] 1.008 L Urine Protein Negative Urine Glucose (UA) 1+ H Urine Ketones Negative Urine Blood Negative Urine Nitrite Negative Urine Bilirubin Negative Urine Urobilinogen 2.0 H Ur Leukocyte Esterase Negative Influenza A (Rapid) Influenza B (Rapid) 12/16/18 12/16/18 12/16/18 20:41 20:41 20:52 WBC RBC Hgb Hct MCV MCH MCHC RDW Plt Count MPV Absolute Neuts (auto) Neutrophils % Lymphocytes % Monocytes % Eosinophils % Basophils % Nucleated RBC % PT with INR INR PTT (Actin FS) Sodium 135 L Potassium 4.4 Chloride 99 Carbon Dioxide 24 Anion Gap 12 BUN 9 Creatinine 0.9 Creat Clearance w eGFR > 60 POC Glucometer Random Glucose 198 H Hemoglobin A1c % Lactic Acid 3.2 H* Calcium 9.2 Phosphorus Magnesium Total Bilirubin 0.9 AST 23 ALT 24 Alkaline Phosphatase 87 Creatine Kinase 59 CK-MB (CK-2) < 1.0 Troponin I < 0.02 Total Protein 8.0 Albumin 3.0 L Triglycerides Cholesterol Total LDL Cholesterol HDL Cholesterol Lipase TSH Urine Color Urine Appearance Urine pH Ur Specific [place] Urine Protein Urine Glucose (UA) Urine Ketones Urine Blood Urine Nitrite Urine Bilirubin Urine Urobilinogen Ur Leukocyte Esterase Influenza A (Rapid) Negative Influenza B (Rapid) Negative 12/17/18 12/17/18 12/17/18 01:01 08:15 08:15 WBC 10.0 RBC 4.02 Hgb 11.7 Hct 34.7 MCV 86.3 MCH 29.1 MCHC 33.7 RDW 17.5 H Plt Count 331 MPV 9.4 Absolute Neuts (auto) 6.7 Neutrophils % 66.9 Lymphocytes % 24.9 D Monocytes % 6.6 Eosinophils % 0.7 Basophils % 0.9 Nucleated RBC % 0 PT with INR 17.60 H INR 1.49 H PTT (Actin FS) 32.4 Sodium Potassium Chloride Carbon Dioxide Anion Gap BUN Creatinine Creat Clearance w eGFR POC Glucometer Random Glucose Hemoglobin A1c % Lactic Acid 2.7 H* Calcium Phosphorus Magnesium Total Bilirubin AST ALT Alkaline Phosphatase Creatine Kinase CK-MB (CK-2) Troponin I Total Protein Albumin Triglycerides Cholesterol Total LDL Cholesterol HDL Cholesterol Lipase TSH Urine Color Urine Appearance Urine pH Ur Specific [place] Urine Protein Urine Glucose (UA) Urine Ketones Urine Blood Urine Nitrite Urine Bilirubin Urine Urobilinogen Ur Leukocyte Esterase Influenza A (Rapid) Influenza B (Rapid) 12/17/18 12/17/18 12/17/18 08:15 08:15 11:35 WBC RBC Hgb Hct MCV MCH MCHC RDW Plt Count MPV Absolute Neuts (auto) Neutrophils % Lymphocytes % Monocytes % Eosinophils % Basophils % Nucleated RBC % PT with INR INR PTT (Actin FS) Sodium 134 L Potassium 4.3 Chloride 99 Carbon Dioxide 23 Anion Gap 11 BUN 9 Creatinine 1.1 Creat Clearance w eGFR 49.39 POC Glucometer Random Glucose 313 H* Hemoglobin A1c % 7.7 H Lactic Acid 2.4 H* Calcium 8.8 Phosphorus 4.3 Magnesium 1.7 L Total Bilirubin 1.2 H AST 15 ALT 22 Alkaline Phosphatase 85 Creatine Kinase CK-MB (CK-2) Troponin I < 0.02 Total Protein 7.7 Albumin 2.9 L Triglycerides 123 Cholesterol 110 Total LDL Cholesterol 54 HDL Cholesterol 45 Lipase 86 TSH 6.77 H Urine Color Urine Appearance Urine pH Ur Specific [place] Urine Protein Urine Glucose (UA) Urine Ketones Urine Blood Urine Nitrite Urine Bilirubin Urine Urobilinogen Ur Leukocyte Esterase Influenza A (Rapid) Influenza B (Rapid) 12/17/18 12/17/18 12:08 17:34 WBC RBC Hgb Hct MCV MCH MCHC RDW Plt Count MPV Absolute Neuts (auto) Neutrophils % Lymphocytes % Monocytes % Eosinophils % Basophils % Nucleated RBC % PT with INR INR PTT (Actin FS) Sodium Potassium Chloride Carbon Dioxide Anion Gap BUN Creatinine Creat Clearance w eGFR POC Glucometer 192 190 Random Glucose Hemoglobin A1c % Lactic Acid Calcium Phosphorus Magnesium Total Bilirubin AST ALT Alkaline Phosphatase Creatine Kinase CK-MB (CK-2) Troponin I Total Protein Albumin Triglycerides Cholesterol Total LDL Cholesterol HDL Cholesterol Lipase TSH Urine Color Urine Appearance Urine pH Ur Specific [place] Urine Protein Urine Glucose (UA) Urine Ketones Urine Blood Urine Nitrite Urine Bilirubin Urine Urobilinogen Ur Leukocyte Esterase Influenza A (Rapid) Influenza B (Rapid) Active Medications Generic Name Dose Route Start Last Admin Trade Name Freq PRN Reason Stop Dose Admin Apixaban 5 mg 12/17/18 11:00 12/17/18 13:43 Eliquis - PO 5 mg BID JESSICA Administration Aspirin 81 mg 12/17/18 10:00 12/17/18 10:40 Ecotrin - PO 81 mg DAILY JESSICA Administration Folic Acid 1 mg 12/17/18 10:00 12/17/18 10:40 Folic Acid - PO 1 mg DAILY JESSICA Administration Dextrose/Sodium Chloride 1,000 mls @ 250 mls/hr 12/17/18 18:30 D5-1/2ns - IV 12/17/18 20:30 ASDIR JESSICA Sodium Chloride 500 mls @ 500 mls/hr 12/17/18 19:25 12/17/18 19:27 Normal Saline - IV 12/17/18 20:24 500 mls/hr ASDIR STA Administration Sodium Chloride 1,000 mls @ 100 mls/hr 12/17/18 19:30 Normal Saline - IV 12/18/18 19:30 ASDIR JESSICA Insulin Aspart 1 vial 12/17/18 11:00 12/17/18 18:11 Novolog Vial Sliding Scale - SQ 2 units ACHS JESSICA Administration Protocol Insulin Detemir 24 units 12/17/18 22:00 Levemir Vial SQ HS JESSICA Metoprolol Tartrate 100 mg 12/17/18 19:01 Lopressor - PO TID JESSICA Metoprolol Tartrate 5 mg 12/17/18 19:27 Lopressor Injection - IVPB Q4H PRN HYPERTENSION Ranitidine HCl 300 mg 12/17/18 10:00 12/17/18 10:40 Zantac - PO 300 mg DAILY JESSICA Administration Rosuvastatin Calcium 20 mg 12/17/18 22:00 Crestor - PO HS JESSICA CTAP: ASSESSMENT/PLAN: 68F w/ pmhx of HTN/HLD, CHF, recent catheterization about x3 weeks ago at [facility], was brought to the ED by her son (Juliana) due to altered mental status and generalized weakness. #Acute Metabolic Encephalopathy; r/o infectious vs. neurological etiology -Pt's son endorses that his mother started noticing mental status changes this past Sunday and has had generalized weakness since cardiac procedure at [facility]. -Head CT neg for any acute pathology -Dr Lassiter on board -Initial U/A neg, repeat U/A ordered -BCx/UCx both negative -Initial lactate 3.2 > 2.7, 3rd lactate 2.4; Pt was also febrile at 100.6, and had WBC 11.7, will treat empirically with IV Ceftriaxone for now. -CTAP---> No acute intraabdominal pathology -PT # Diabetes [facility] called this afternoon. Pt receives Long acting insulin 24 U HS Also recieves humolog 15 U before breakfast but will withold that for now and place patient on ISS #Chest pain -Pt complaining of similar chest pain prior to cath that was done -ASA 81 mg QD -Troponin negative x 2 -Dr Cifuentes on board -EKG noted above; afib, HR 107, QTc prolonged at 491 ms -avoid QTc prolonging agents #Diarrhea -Stool cx, fecal WBCs, Cdiff tox/Ag, lactoferrin ordered -Monitor BM #Afib Eliquis 5 PO BID Lopressor 100 PO BID #HTN Metoprolol Tartrate 125 mg PO Q8H Discontinued. Will start Lopresso [address] Mascitelli #HLD Crestor 20 mg PO HS #Prophylaxis -Eliquis 5 po bid -Ranitidine 300 QD #FEN -Stop fluids tonight -BMP -sodium-controlled diet dispo Tele Visit type - Emergency Visit Emergency Visit: Yes ED Registration Date: 12/17/18 Care time: The patient presented to the Emergency Department on the above date and was hospitalized for further evaluation of their emergent condition. - New Patient This patient is new to me today: No - Critical Care Critical Care patient: No - Discharge Referral Referred to [facility] Med P.C.: No
--- NOTE | 2018-12-17 19:45 | CON.NEURO ---
Consult Consult Specialty:: NEUROLOGY-DENISE VEGA Reason for Consultation:: Parkinsonian features - History of Present Illness History of Present Illness: 8F w/ pmhx of HTN/HLD, ? CHF, recent catheterization about x3 weeks ago, was brought to the ED by her son due to altered mental status since last Sunday. Per pt's son, pt was recently hospitalized at [facility] and underwent went a cardiac catheterization with some questionable "mitral valvular disease" . After discharge, she was sent to rehab facility to continue PT and remained there for 1 week, however when her son came to visit last Sunday, he was dissatisfied with the treatment at the facility and found several bruises on his mother. As a result, he chose to pull his mother out of the facility and brought her home. Unfortunately, starting the following Sunday, he started noticing that his mother was having lapses in memory, getting more lethargic, and would start switching between speaking in her inupiat tongue (Faroese) and Maltese. He denies any prior history of neurological problems and states at baseline his mom is usually sharp. He also says since the cardiac cath, she has been too weak to walk herself which is why she was originally sent to the rehab facility to continue PT. Found to have rapid afib. Pt. is encephalopathic, she is unable to relate clear history but I have been able to gather 1-x 3 months at least she has had progressive gait deterioration to the point she is unable to ambulate without assistance 2- she has tremors more in left hand than right 3-constipation x months 4- unable to relate any further neurologic hx. + urinary incont-she denies it but has a urinefrous odour Upon review of systems, pt states she has persistent non-radiating L-sided chest pain that is similar in nature to the chest pain she had prior to the cardiac cath. Limited ROS could be ascertained from patient due to current mental status. Request for records have been sent to [facility] for further review. POC: Franc Sanchez (son) - TSH-6.77(high). ER course was notable for: (1) Temp 100.6, HR 109, BP 96/61, WBC 11.7, Na 135, Glu 198, Lac 3.2 > 2.7 (2) Trops neg x1, U/A neg, Rapid flu A/B neg (3) IV Tylenol, LR 1L Recent Travel: Denies PAST MEDICAL HISTORY: HTN HLD ? CHF recent catheterization - Past Medical History [employer]: Yes: Dementia Cardio/Vascular: Yes: AFIB, HTN ...: No - Alcohol/Substance Use Hx Alcohol Use: No - Smoking History Smoking history: Never smoked Have you smoked in the past 12 months: No Home Medications - Allergies Allergies/Adverse Reactions: Allergies Allergy/AdvReac Type Severity Reaction Status Date / Time No Known Allergies Allergy Verified 12/16/18 18:28 - Home Medications Home Medications: Ambulatory Orders Apixaban [Eliquis] 5 mg PO BID 12/17/18 Aspirin [Ecotrin] 81 mg PO DAILY 12/17/18 Famotidine [Pepcid] 40 mg PO DAILY 12/17/18 Fluphenazine HCl 5 mg PO DAILY 12/17/18 Folic Acid 1 mg PO DAILY 12/17/18 Insulin Glargine,Hum.rec.anlog [Lantus] 24 unit SQ HS 12/17/18 Insulin Lispro [Humalog] 15 unit SQ AM 12/17/18 Metoprolol Succinate [Toprol Xl] 200 mg PO BID 12/17/18 Metoprolol Tartrate 125 mg PO Q8H 12/17/18 Rosuvastatin Calcium [Crestor] 20 mg PO HS 12/17/18 Physical Exam-Neuro Vital Signs: Vital Signs Temperature 98.9 F 12/17/18 19:18 Pulse Rate 107 H 12/17/18 14:58 Respiratory Rate 20 12/17/18 19:18 Blood Pressure 126/93 12/17/18 19:18 O2 Sat by Pulse Oximetry (%) 94 L 12/17/18 05:26 Labs: CBC, BMP 12/17/18 08:15 12/17/18 08:15 INR, PTT INR 1.49 (0.83-1.09) H 12/17/18 08:15 - Neuro Exam Level Of Consciousness: Yes: Alert, Oriented to Person, Oriented to Place ( Follows 1 step commands,not oriented to date/day/month) Eyes: Yes: DENNY Mini Mental Exam: Imapired attention/conc/STM- she is encephalopathic Cranial Nerves II-XII Intact: No (+ facial hypomimia+rhythmic lower lip tremors( rhythmic, fine, parkinsonian).) DTR's: 1+ Left Achilles, 1+ Right Achilles, 2+ Left Tricep, 2+ Right Tricep, 3+ Left Bicep, 3+ Right Bicep, 3+ Left Brachioradialis, 3+ Right Brachioradialis Babinski: Present (bilat upgoing toes) Response to light touch: Normal Movement Disorders: Tremors (+ resting tremors LUE+bilat cogwheeling in both UEs ) Motor Strength: 4/5: Left Arm, Right Arm, Left Leg, Right Leg (Markedly increased tone in both legs) Gait: Other (+pull test, wide based, short steps, unable to walk on her own) Imaging - Results Cat Scan: Report Reviewed (Volume loss causing hydrocephalus exvacuo reported but vents. apear larger than can be accounted for by atrophy) Assessment/Plan Ms. 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 In addition her currrent metabolic/?? infectious state may be making her neurologic condition worse. she may also have an underlying subcortical dementia related to PD. Suggest: Exclude myelopathy- MRI cspine, B12/Folate. Treat hypothyroidism and possible infection/metabolic derangements to address encephalopathy Would give a trial of Levodopa-25/100, half tab tid x 1 day than 1 tab bid to see if she improves or not. If she motorically improves she likely has PD, if not than, after her medical condition has improved would perform diagnostic spinal tap to make/discard dx. of NPH. Thank you, Driss Lassiter MD
[2018-12-17] MEDS ORDERED: ROSUVASTATIN CA 20 MG TABLET (FP) PO SCH (22:00)
[2018-12-18] MEDS: METOPROLOL TARTRATE 50 MG TABLET (FP) PO SCH ×3 (00:19→14:20)
[2018-12-18] MEDS: APIXABAN 2.5 MG TABLET PO SCH (00:19)
[2018-12-18] MEDS: INSULIN (LEVEMIR) 100 UNITS/ML UNITS SQ SCH ×2 (00:26→21:38)
[2018-12-18] MEDS: INSULIN SLIDING SCALE (NOVOLOG) 1 VIAL SQ SCH ×5 (00:26→21:38)
[2018-12-18] MEDS: SODIUM CHLORIDE 1,000 ML IV SCH ×2 (00:27→21:35)
[2018-12-18] MEDS: CARBIDOPA/LEVODOPA 25/100 TABLET (FP) PO SCH ×3 (00:28→14:49)
[2018-12-18 06:32] LABS: HEMOGLOBIN 10.3 GM/dL (10.7-15.3); MCH 28.3 pg (25.7-33.7); MCHC 33.3 g/dl (32.0-36.0); MEAN PLT VOLUME 9.1 fl (7.5-11.1); PLATELET COUNT 292 K/MM3 (134-434); RBC 3.64 M/mm3 (3.60-5.2); RDW 17.7 % (11.6-15.6); WHITE BLOOD COUNT 8.2 K/mm3 (4.0-10.0)
[2018-12-18 07:02] LABS: ANION GAP 9 MMOL/L (8-16); BLOOD UREA NITROGEN 10 mg/dL (7-18); CALCIUM 8.5 mg/dL (8.5-10.1); CHLORIDE 103 mmol/L (98-107); CO2 26 mmol/L (21-32); CREATININE 0.8 mg/dL (0.55-1.3); GLUCOSE,RANDOM 125 mg/dL (74-106); PHOSPHOROUS 3.8 mg/dL (2.5-4.9); POTASSIUM 3.8 mmol/L (3.5-5.1); SODIUM 138 mmol/L (136-145)
--- NOTE | 2018-12-18 08:05 | PN ---
Teaching Attending Note Name of Resident: Kelvin Wolfe ATTENDING PHYSICIAN STATEMENT I saw and evaluated the patient. I reviewed the resident's note and discussed the case with the resident. I agree with the resident's findings and plan as documented. SUBJECTIVE: patient is feeling better , son is at bedside. OBJECTIVE: Vital Signs Temperature 98.6 F 12/18/18 01:51 Pulse Rate 82 12/18/18 06:00 Respiratory Rate 18 12/18/18 06:00 Blood Pressure 94/56 L 12/18/18 06:00 O2 Sat by Pulse Oximetry (%) 94 L 12/17/18 05:26 GENERAL: Awake, alert and oriented. NAD. Pleasant female. HEENT: AT/NC. EOMI. DENNY. NECK: Normal range of motion, supple, no JVD, or masses. LUNGS: CTA B/L. No wheezes noted. HEART: Irregularly irregular. No murmurs noted. ABDOMEN: Soft, NT,NR,ND, guarding or rebound tenderness. MUSCULOSKELETAL: Normal range of motion at all joints. No bony deformities or tenderness. EXTREMITIES: No peripheral edema noted b/l. 2+ dorsalis pedis pulses and radial pulses b/l. NEUROLOGICAL: delayed response to questions. Facial symmetry noted. CBCD WBC 8.2 K/mm3 (4.0-10.0) 12/18/18 05:30 RBC 3.64 M/mm3 (3.60-5.2) 12/18/18 05:30 Hgb 10.3 GM/dL (10.7-15.3) L 12/18/18 05:30 Hct 31.0 % (32.4-45.2) L 12/18/18 05:30 MCV 85.0 fl (80-96) 12/18/18 05:30 MCHC 33.3 g/dl (32.0-36.0) 12/18/18 05:30 RDW 17.7 % (11.6-15.6) H 12/18/18 05:30 Plt Count 292 K/MM3 (134-434) 12/18/18 05:30 MPV 9.1 fl (7.5-11.1) 12/18/18 05:30 CMP Sodium 138 mmol/L (136-145) 12/18/18 05:30 Potassium 3.8 mmol/L (3.5-5.1) 12/18/18 05:30 Chloride 103 mmol/L (98-107) 12/18/18 05:30 Carbon Dioxide 26 mmol/L (21-32) 12/18/18 05:30 Anion Gap 9 MMOL/L (8-16) 12/18/18 05:30 BUN 10 mg/dL (7-18) 12/18/18 05:30 Creatinine 0.8 mg/dL (0.55-1.3) 12/18/18 05:30 Creat Clearance w eGFR > 60 (>60) 12/18/18 05:30 Random Glucose 125 mg/dL (74-106) H 12/18/18 05:30 Calcium 8.5 mg/dL (8.5-10.1) 12/18/18 05:30 Total Bilirubin 1.2 mg/dL (0.2-1) H 12/17/18 08:15 AST 15 U/L (15-37) 12/17/18 08:15 ALT 22 U/L (13-61) 12/17/18 08:15 Alkaline Phosphatase 85 U/L (45-117) 12/17/18 08:15 Total Protein 7.7 g/dl (6.4-8.2) 12/17/18 08:15 Albumin 2.9 g/dl (3.4-5.0) L 12/17/18 08:15 CARDIAC ENZYMES Creatine Kinase 59 U/L (26-192) 12/16/18 20:41 Troponin I < 0.02 ng/ml (0.00-0.05) 12/17/18 08:15 Current Medications Generic Name Dose Route Start Last Admin Trade Name Freq PRN Reason Stop Dose Admin Apixaban 5 mg 12/18/18 10:00 Eliquis - PO BID JESSICA Aspirin 81 mg 12/18/18 10:00 Ecotrin - PO DAILY JESSICA Carbidopa/Levodopa 0.5 each 12/17/18 22:00 12/18/18 07:14 Sinemet 25/100 - PO 12/18/18 21:59 0.5 each TID JESSICA Administration Carbidopa/Levodopa 1 each 12/19/18 06:00 Sinemet 25/100 - PO TID JESSICA Folic Acid 1 mg 12/18/18 10:00 Folic Acid - PO DAILY JESSICA Sodium Chloride 1,000 mls @ 100 mls/hr 12/17/18 19:30 12/18/18 00:27 Normal Saline - IV 12/18/18 19:30 100 mls/hr ASDIR JESSICA Administration Insulin Aspart 1 vial 12/18/18 07:00 12/18/18 07:25 Novolog Vial Sliding Scale - SQ Not Given ACHS [facility] Protocol Insulin Detemir 24 units 12/17/18 22:00 12/18/18 00:26 Levemir Vial SQ Not Given HS [facility] Metoprolol Tartrate 100 mg 12/17/18 19:01 12/18/18 07:14 Lopressor - PO 100 mg TID [facility] Administration Metoprolol Tartrate 5 mg 12/17/18 19:27 Lopressor Injection - IVPB Q4H PRN HYPERTENSION Ranitidine HCl 300 mg 12/18/18 10:00 Zantac - PO DAILY [facility] Rosuvastatin Calcium 20 mg 12/18/18 22:00 Crestor - PO [facility] Home Medications Medication Instructions Recorded Apixaban [Eliquis] 5 mg PO BID 12/17/18 Aspirin [Ecotrin] 81 mg PO DAILY 12/17/18 Famotidine [Pepcid] 40 mg PO DAILY 12/17/18 Fluphenazine HCl 5 mg PO DAILY 12/17/18 Folic Acid 1 mg PO DAILY 12/17/18 Insulin Glargine,Hum.rec.anlog 24 unit SQ HS 12/17/18 [Lantus] Insulin Lispro [Humalog] 15 unit SQ AM 12/17/18 Metoprolol Succinate [Toprol Xl] 200 mg PO BID 12/17/18 Metoprolol Tartrate 125 mg PO Q8H 12/17/18 Rosuvastatin Calcium [Crestor] 20 mg PO HS 12/17/18 Microbiology 12/17/18 09:45 Blood - Peripheral Venous Blood Culture - Preliminary NO GROWTH OBTAINED AFTER 48 HOURS, INCUBATION TO CONTINUE FOR 3 DAYS. 12/16/18 20:41 Blood - Peripheral Venous Blood Culture - Preliminary NO GROWTH OBTAINED AFTER 48 HOURS, INCUBATION TO CONTINUE FOR 3 DAYS. 12/16/18 20:22 Urine - Urine Clean Catch Urine Culture - Final Contaminated: Please Repeat ASSESSMENT AND PLAN: Patient is a 68yo female with h/o MV clip, HTN, DM, HLD, systolic CHF, recent cath at [facility] ( unknown results or procedure), she presented with non specific complaints , diarrhea, cp , and developed fever here. # Acute change of mental status with gradual decline. as per Dr. pardo patient might have NPH. as per neurology Dr. Lassiter, patient has Parkinsonian's features to be primary PD(asymmetric tremors/rigidity, type of tremors), also started the patient on Sinemet to check whether she improves on Sinemet . B12/folic acid , Tsh Ft4. ventriculomegally on the CT. Patient noted to have some gait difficulty and complains of tremors in her hands. She appears to have a mask face and may have Parkinson's Disease. # A fib/flutter : with RVR: on Lopressor , adjusted the dose to 75mg tid, will monitor the HR.on Eliquis will continue 5mg po bid. On aspirin as well will continue until we clarify with . and will call the [facility] for further info. # Hx of systolic heart failure: echo with mildly reduced EF. hold lasix and continue IVF # Hypotension will hold the BP meds except Lopressor for rate control , will adjust the dose since the patient is hypotensive ,will monitor. # S/p fever : unclear source: work up is negative, Echo which showed no vegetations. # Acute dehydration on IVF : due to diarrhea, and maybe poor po intake. hold lasix # Diarrhea: follow c diff nad stool cx if it recurs. # T2DM : on levemir on 10 units , resume her 24 units of levemir at HS , cont SSI # T11 Fx: Neurosx consult appreciated Dr Pardo , possible [employer] shunting if needed Records were requested form [facility].
--- NOTE | 2018-12-18 10:20 | PN ---
Progress Note, Physician History of Present Illness: 68 yo Female (shanna Arellano) with PMH HTN, HLD, systoic and diastolic CHF ( borderline reduced LVEF on 2019 ECHO), Recent cath 3 weeks ago at [facility]?, Atrial fibrillation, very poor historian, comes from home stating her son told her to come for evaluation. She is confused and unable to adequately explain why she is here. Going through thorough review of systems she complains of neck weakness and pain, chest pain similar to her pain 3 weeks ago prior to her procedure, abdominal pain, and some confusion. She denies other symptoms. Of note she is unable to state how she got here but is able to confirm ambulence when prompted. She is oriented to time place and self, however is unable to explain exactly why she is here or what her current concerns are. - Current Medication List Current Medications: Active Medications Apixaban (Eliquis -) 5 mg PO BID [facility] Aspirin (Ecotrin -) 81 mg PO DAILY [facility] Carbidopa/Levodopa (Sinemet 25/100 -) 0.5 each PO TID [facility] Stop: 12/18/18 21:59 Last Admin: 12/18/18 07:14 Dose: 0.5 each Carbidopa/Levodopa (Sinemet 25/100 -) 1 each PO TID [facility] Folic Acid (Folic Acid -) 1 mg PO DAILY [facility] Sodium Chloride (Normal Saline -) 1,000 mls @ 100 mls/hr IV ASDIR [facility] Stop: 12/18/18 19:30 Last Admin: 12/18/18 00:27 Dose: 100 mls/hr Insulin Aspart (Novolog Vial Sliding Scale -) 1 vial SQ [facility]; Protocol Last Admin: 12/18/18 07:25 Dose: Not Given Insulin Detemir (Levemir Vial) 24 units SQ [facility] Last Admin: 12/18/18 00:26 Dose: Not Given Metoprolol Tartrate (Lopressor -) 100 mg PO TID [facility] Last Admin: 12/18/18 07:14 Dose: 100 mg Metoprolol Tartrate (Lopressor Injection -) 5 mg IVPB Q4H PRN PRN Reason: HYPERTENSION Ranitidine HCl (Zantac -) 300 mg PO DAILY [facility] Rosuvastatin Calcium (Crestor -) 20 mg PO [facility] - Objective Vital Signs: Vital Signs Temperature 98.6 F 02/27/19 01:51 Pulse Rate 82 12/18/18 06:00 Respiratory Rate 18 12/18/18 06:00 Blood Pressure 94/56 L 12/18/18 06:00 O2 Sat by Pulse Oximetry (%) 94 L 12/17/18 05:26 Eyes: Yes: WNL, Conjunctiva Clear, EOM Intact HENT: Yes: WNL, Atraumatic, Normocephalic Neck: Yes: WNL, Supple, Trachea Midline Cardiovascular: Yes: WNL, Regular Rate and Rhythm Respiratory: Yes: WNL, Regular, CTA Bilaterally Gastrointestinal: Yes: WNL, Normal Bowel Sounds Genitourinary: Yes: WNL Musculoskeletal: Yes: WNL Extremities: Yes: WNL Edema: No Integumentary: Yes: WNL Neurological: Yes: WNL, Alert, Oriented ...Motor Strength: WNL Psychiatric: Yes: WNL Labs: CBC, BMP 12/18/18 05:30 12/18/18 05:30 INR, PTT INR 1.49 (0.83-1.09) H 12/17/18 08:15 Assessment/Plan - Problems (1) Hypothyroid Assessment/Plan: elevated TSH; f/u Free T3 and free T4. Code(s): E03.9 - HYPOTHYROIDISM, UNSPECIFIED (2) Systolic CHF Assessment/Plan: ECHO: borderline reduced LVEF; mod-severe TR, with moderate pulmonary HTN. On metoprolol. Start ACEI or ARB when BP allows (BP may improve once HR is better-controlled) for HTN, CHF (renal protection). BUN?cr, electrolytes, daily weight, Is and Os. Code(s): I50.20 - UNSPECIFIED SYSTOLIC (CONGESTIVE) HEART FAILURE (3) Confusion Assessment/Plan: ?Hx dementia. F/u with neurologist. Code(s): R41.0 - DISORIENTATION, UNSPECIFIED (4) Elevated lactic acid level Assessment/Plan: Afebrile; initially elevated WBC; ?source of infection. Anuric. Will give D5-1/2 NS 250 ml/hr x 2hrs, then 100 ml/hr. F/u Is and Os; f/u septic workup. Code(s): R79.89 - OTHER SPECIFIED ABNORMAL FINDINGS OF BLOOD CHEMISTRY (5) Hypomagnesemia Assessment/Plan: replete Mg, and keep 2.0-2.4. Code(s): E83.42 - HYPOMAGNESEMIA (6) Atrial fibrillation with rapid ventricular response Assessment/Plan: On metoprolol. F?u HR and BP. For transfer to telemetry. Discussed pt with Dr. Proctor. who received further information about Ms. Lamb: Pt c/o "chest pain" that led to a cardiac procedure at [facility] 10/08: ? Coronary stent. Mental status steadily deteriorating since 10/08. At [facility]: on metoprolol ER 200 mg bid, with metorpolol tartrate 125 mg tid prn. Also on Lasix 40 mg bid, Apixaban 5 mg bid; Losartan ?50 mg daily. Plan: Presently in AF with RVR. Will start metoprolol tartrate 100 mg tid (and metoprolol tartrate 5 mg IVP prn) . IVF. [facility] records of prior cardiac and other workup from [facility] and family. Code(s): I48.91 - UNSPECIFIED ATRIAL FIBRILLATION
[2018-12-18] MEDS: APIXABAN 5 MG TABLET PO SCH ×2 (10:24→21:35)
[2018-12-18] MEDS: ASPIRIN COATED 81 MG TABLET.EC PO SCH (10:24)
[2018-12-18] MEDS: RANITIDINE HCL 150 MG TABLET (FP) PO SCH (10:24)
[2018-12-18] MEDS: FOLIC ACID 1 MG TABLET (FP) PO SCH (10:24)
[2018-12-18] MEDS ORDERED: SODIUM CHLORIDE 250 ML IV STA (10:27)
--- NOTE | 2018-12-18 10:45 | EKG ---
Test Reason : Blood Pressure : / mmHG Vent. Rate : 087 BPM Atrial Rate : 101 BPM P-R Int : 000 ms QRS Dur : 082 ms QT Int : 426 ms P-R-T Axes : 000 -30 -54 degrees QTc Int : 512 ms ATRIAL FIBRILLATION WITH PREMATURE VENTRICULAR OR ABERRANTLY CONDUCTED COMPLEXES LEFT AXIS DEVIATION NONSPECIFIC T WAVE ABNORMALITY ABNORMAL ECG WHEN COMPARED WITH ECG OF 17-DEC-2018 10:29, ATRIAL FIBRILLATION HAS REPLACED ATRIAL FLUTTER NONSPECIFIC T WAVE ABNORMALITY, IMPROVED IN LATERAL LEADS Confirmed by BERONICA PICHARDO MD ([id number]) on 12/18/2018 10:45:41 AM Referred By: NANCI COMBS DRATRI[facility] CENTERIsabel Confirmed By:BERONICA PICHARDO MD
--- NOTE | 2018-12-18 17:23 | PN ---
Progress Note (short form) - Note Progress Note: Patient stable. Dr. Lassiter's note appreciated. If patient does not respond to Parkinsonian medication regimen, agree with consideration of Lumbar Puncture for NPH evaluation. Will follow
--- NOTE | 2018-12-18 19:37 | PN ---
Physical Exam: SUBJECTIVE: Patient seen and examined today at bedside. Responding to questions in Salvadorean. No acute events overnight OBJECTIVE: Vital Signs Period Temp Pulse Resp BP Sys/Castillo Pulse Ox Last 24 Hr 97.6 F-98.6 F 81-118 18-20 82-105/49-63 GENERAL: Slow to respond to questions, masked like facies persist. HEAD: Atraumatic/Normocephalic EYES: Slow movement of eyes. EOMI, Sclera is clear ENT: MMM no JVD appreciated NECK: Trachea midline, full range of motion, supple. LUNGS: Decreased Breath sounds at bases HEART: RRR S1S2 nl ABDOMEN: Tender to deep palpation EXTREMITIES:Trace lower extremity edema . PSYCH: Normal mood, normal affect. Laboratory Results - last 24 hr 12/17/18 12/18/18 12/18/18 22:59 05:30 05:30 WBC 8.2 RBC 3.64 Hgb 10.3 L Hct 31.0 L MCV 85.0 MCH 28.3 MCHC 33.3 RDW 17.7 H Plt Count 292 MPV 9.1 Sodium 138 Potassium 3.8 Chloride 103 Carbon Dioxide 26 Anion Gap 9 BUN 10 Creatinine 0.8 Creat Clearance w eGFR > 60 POC Glucometer 108 Random Glucose 125 H Lactic Acid Calcium 8.5 Phosphorus 3.8 Magnesium 2.0 Free T4 1.39 12/18/18 12/18/18 12/18/18 06:41 08:10 12:30 WBC RBC Hgb Hct MCV MCH MCHC RDW Plt Count MPV Sodium Potassium Chloride Carbon Dioxide Anion Gap BUN Creatinine Creat Clearance w eGFR POC Glucometer 119 181 Random Glucose Lactic Acid 1.2 Calcium Phosphorus Magnesium Free T4 12/18/18 17:45 WBC RBC Hgb Hct MCV MCH MCHC RDW Plt Count MPV Sodium Potassium Chloride Carbon Dioxide Anion Gap BUN Creatinine Creat Clearance w eGFR POC Glucometer 143 Random Glucose Lactic Acid Calcium Phosphorus Magnesium Free T4 Active Medications Generic Name Dose Route Start Last Admin Trade Name Freq PRN Reason Stop Dose Admin Apixaban 5 mg 12/18/18 10:00 12/18/18 10:24 Eliquis - PO 5 mg BID JESSICA Administration Aspirin 81 mg 12/18/18 10:00 12/18/18 10:24 Ecotrin - PO 81 mg DAILY JESSICA Administration Carbidopa/Levodopa 0.5 each 12/17/18 22:00 12/18/18 14:49 Sinemet 25/100 - PO 12/18/18 21:59 0.5 each TID JESSICA Administration Carbidopa/Levodopa 1 each 12/19/18 06:00 Sinemet 25/100 - PO TID JESSICA Folic Acid 1 mg 12/18/18 10:00 12/18/18 10:24 Folic Acid - PO 1 mg DAILY JESSICA Administration Insulin Aspart 1 vial 12/18/18 07:00 12/18/18 18:18 Novolog Vial Sliding Scale - SQ Not Given ACHS [facility] Protocol Insulin Detemir 24 units 12/17/18 22:00 12/18/18 00:26 Levemir Vial SQ Not Given HS [facility] Metoprolol Tartrate 5 mg 12/17/18 19:27 Lopressor Injection - IVPB Q4H PRN HYPERTENSION Metoprolol Tartrate 75 mg 12/18/18 15:24 Lopressor - PO TID JESSICA Ranitidine HCl 300 mg 12/18/18 10:00 12/18/18 10:24 Zantac - PO 300 mg DAILY JESSICA Administration Rosuvastatin Calcium 20 mg 12/18/18 22:00 Crestor - PO HS JESSICA ASSESSMENT/PLAN: 68F w/ pmhx of HTN/HLD, CHF, recent catheterization about x3 weeks ago at [facility], was brought to the ED by her son (Juliana) due to altered mental status and generalized weakness. #Acute Metabolic Encephalopathy; r/o infectious vs. neurological etiology -Pt's son endorses that his mother started noticing mental status changes this past Sunday and has had generalized weakness since cardiac procedure at [facility]. -Head CT neg for any acute pathology -Dr Lassiter on board -Initial U/A neg, repeat U/A ordered -BCx/UCx both negative -Initial lactate 3.2 > 2.7, 3rd lactate 2.4; Pt was also febrile at 100.6, and had WBC 11.7, will treat empirically with IV Ceftriaxone for now. -CTAP---> No acute intraabdominal pathology -PT -Evaluated by Dr Mary Anne Monterroso today--> Agree with Parkinson medications. If no adequate response to medications, recommend Lumbar puncture for suspicion of normal pressure hydrocephalus. # Diabetes Melitus . Pt receives Long acting insulin 24 U HS Also recieves humolog 15 U before breakfast but will withold that for now and place patient on ISS #Chest pain -Pt complaining of similar chest pain prior to cath that was done -ASA 81 mg QD -Troponin negative x 2 -Dr Cifuentes on board -EKG noted above; afib, HR 107, QTc prolonged at 491 ms -avoid QTc prolonging agents #Diarrhea -Stool cx, fecal WBCs, Cdiff tox/Ag, lactoferrin ordered -Monitor BM #Afib Eliquis 5 PO BID Lopressor 75 PO TID #HTN Metoprolol Tartrate 125 mg PO Q8H Discontinued. Lopressor 75 PO TID #HLD Crestor 20 mg PO HS #Prophylaxis -Eliquis 5 po bid -Ranitidine 300 QD #FEN -Stop fluids tonight -BMP -sodium-controlled diet dispo Tele Visit type - Emergency Visit Emergency Visit: Yes ED Registration Date: 12/17/18 Care time: The patient presented to the Emergency Department on the above date and was hospitalized for further evaluation of their emergent condition. - New Patient This patient is new to me today: No - Critical Care Critical Care patient: No - Discharge Referral Referred to [facility] Med [facility] No
[2018-12-18] MEDS: ROSUVASTATIN CA 20 MG TABLET (FP) PO SCH (21:35)
[2018-12-18] MEDS: METOPROLOL TARTRATE 25 MG TABLET (FP) PO SCH (23:03)
[2018-12-19] MEDS ORDERED: ACETAMINOPHEN 325 MG TABLET (FP) PO ONE (00:40)
[2018-12-19] MEDS ORDERED: CARBIDOPA/LEVODOPA 25/100 TABLET (FP) PO SCH (06:00)
[2018-12-19 06:34] LABS: HEMOGLOBIN 9.4 GM/dL (10.7-15.3); MCH 28.5 pg (25.7-33.7); MCHC 33.4 g/dl (32.0-36.0); MEAN CELL VOLUME 85.2 fl (80-96); MEAN PLT VOLUME 8.8 fl (7.5-11.1); PLATELET COUNT 279 K/MM3 (134-434); RBC 3.28 M/mm3 (3.60-5.2); RDW 17.6 % (11.6-15.6); WHITE BLOOD COUNT 7.3 K/mm3 (4.0-10.0)
[2018-12-19] MEDS: INSULIN SLIDING SCALE (NOVOLOG) 1 VIAL SQ SCH ×4 (07:02→21:03)
[2018-12-19] MEDS: METOPROLOL TARTRATE 25 MG TABLET (FP) PO SCH (07:02)
[2018-12-19 07:31] LABS: ANION GAP 7 MMOL/L (8-16); BLOOD UREA NITROGEN 13 mg/dL (7-18); CALCIUM 7.5 mg/dL (8.5-10.1); CHLORIDE 107 mmol/L (98-107); CO2 24 mmol/L (21-32); CREATININE 0.6 mg/dL (0.55-1.3); GLUCOSE,RANDOM 118 mg/dL (74-106); MAGNESIUM 1.8 mg/dL (1.8-2.4); SODIUM 138 mmol/L (136-145)
--- NOTE | 2018-12-19 09:07 | PN ---
Progress Note, Physician Chief Complaint: Pt alert; speaks Greek, then reverts to Turkmen. She does not articulate past medical history well. History of Present Illness: 68 yo Female (b. [place]) with PMH HTN, HLD, systoic and diastolic CHF ( borderline reduced LVEF on 2019 ECHO), Recent cath 3 weeks ago at [facility] Atrial fibrillation, very poor historian, comes from home stating her son told her to come for evaluation. She is confused and unable to adequately explain why she is here. Going through thorough review of systems she complains of neck weakness and pain, chest pain similar to her pain 3 weeks ago prior to her procedure, abdominal pain, and some confusion. She denies other symptoms. Of note she is unable to state how she got here but is able to confirm ambulence when prompted. She is oriented to time place and self, however is unable to explain exactly why she is here or what her current concerns are. Retrieval of [facility] records from 11/07/2018 notes severe symptomatic MR with anterior leaflet MVP and posterior leaflet restriction; this resulted in ranseptal catheterization surgery 11/20/2018 or placement of single NTR Mitraclip in the A2P2 position. - Current Medication List Current Medications: Active Medications Apixaban (Eliquis -) 5 mg PO BID [facility] Last Admin: 12/18/18 21:35 Dose: 5 mg Aspirin (Ecotrin -) 81 mg PO DAILY [facility] Last Admin: 12/18/18 10:24 Dose: 81 mg Carbidopa/Levodopa (Sinemet 25/100 -) 1 each PO TID [facility] Last Admin: 12/19/18 07:02 Dose: 1 each Folic Acid (Folic Acid -) 1 mg PO DAILY [facility] Last Admin: 12/18/18 10:24 Dose: 1 mg Insulin Aspart (Novolog Vial Sliding Scale -) 1 vial SQ [facility]; Protocol Last Admin: 12/19/18 07:02 Dose: Not Given Insulin Detemir (Levemir Vial) 24 units SQ [facility] Last Admin: 12/18/18 21:38 Dose: 24 unit Metoprolol Tartrate (Lopressor Injection -) 5 mg IVPB Q4H PRN PRN Reason: HYPERTENSION Metoprolol Tartrate (Lopressor -) 75 mg PO TID [facility] Last Admin: 12/19/18 07:02 Dose: 75 mg Ranitidine HCl (Zantac -) 300 mg PO DAILY [facility] Last Admin: 12/18/18 10:24 Dose: 300 mg Rosuvastatin Calcium (Crestor -) 20 mg PO HS [facility] Last Admin: 12/18/18 21:35 Dose: 20 mg - Objective Vital Signs: Vital Signs Temperature 98 F 12/19/18 06:00 Pulse Rate 98 H 12/19/18 06:00 Respiratory Rate 20 12/19/18 06:00 Blood Pressure 128/88 12/19/18 06:00 O2 Sat by Pulse Oximetry (%) 95 12/18/18 21:00 Constitutional: Yes: Anxious Eyes: Yes: WNL HENT: Yes: WNL Neck: Yes: WNL Cardiovascular: Yes: S1 (varies in intensity), S2 Respiratory: Yes: Regular Gastrointestinal: Yes: Soft ...Rectal Exam: Yes: Deferred Genitourinary: No: Anuria Breast(s): Yes: WNL Musculoskeletal: Yes: Muscle Weakness Extremities: Yes: Cool Edema: No Peripheral Pulses WNL: Yes Integumentary: Yes: WNL Neurological: Yes: Alert, Weakness Psychiatric: Yes: Other Labs: CBC, BMP 12/19/18 05:30 12/19/18 05:30 INR, PTT INR 1.49 (0.83-1.09) H 12/17/18 08:15 Abnormal Lab Results 12/20/18 12/20/18 05:30 05:30 RBC 3.44 L Hgb 9.7 L Hct 29.3 L RDW 17.4 H Random Glucose 112 H Calcium 8.4 L Serum Folate 33 H TSH 3.89 H - ....Imaging Other: Image Reviewed (telemetry: AF; periods of RVR) Problem List - Problems (1) Hypothyroid Assessment/Plan: elevated TSH; Free T3 and T4 WNL. Code(s): E03.9 - HYPOTHYROIDISM, UNSPECIFIED (2) Systolic CHF Assessment/Plan: ECHO: borderline reduced LVEF; normal LV size; mild LAE and CHIN;mild IW hypokinesis; mod-severe TR, with moderate pulmonary HTN; mild MR. On metoprolol. Start ACEI or ARB when BP allows (BP may improve once HR is better-controlled) for HTN, CHF (renal protection). BUN?cr, electrolytes, daily weight, Is and Os. Hx severe MR-->Mitraclip 11/20/2018. F/u records of stress test or coronary angiogram, likely done while assessing pt for mitral valve procedure; if not done, will order coronary artery workup when stable. (TNI < 0.02 x 2; reduced LVEF with regional wall motion abnormality; multiple CAD risks, including DM) Code(s): I50.20 - UNSPECIFIED SYSTOLIC (CONGESTIVE) HEART FAILURE (3) Confusion Assessment/Plan: ?Hx "dementia"; Parkinson's; ruling out NUTRITIONALIST Hydrocehalus. F/u with neurologist. Code(s): R41.0 - DISORIENTATION, UNSPECIFIED (4) Elevated lactic acid level Assessment/Plan: Afebrile; initially elevated WBC; ?source of infection. Pt was given IV fluids; now urinating. F/u workup. Code(s): R79.89 - OTHER SPECIFIED ABNORMAL FINDINGS OF BLOOD CHEMISTRY (5) Hypomagnesemia Assessment/Plan: repletde Mg; keep 2.0-2.4. Code(s): E83.42 - HYPOMAGNESEMIA (6) Atrial fibrillation with rapid ventricular response Assessment/Plan: HR rises to >130 bpm simply upon standing; increased metoprolol from 75 to 100 mg tid, with IVP boluses; f/u HR and BP. S/p Mitraclip for severe MR/MVP 11/20/2018. Mental status reported steadily deteriorating since 10/08. (At NH: on metoprolol ER 200 mg bid, with metorpolol tartrate 125 mg tid prn. Also on Lasix 40 mg bid, Apixaban 5 mg bid; Losartan ?50 mg daily). Code(s): I48.91 - UNSPECIFIED ATRIAL FIBRILLATION (7) Anemia Assessment/Plan: decreasing Hb after hydration; f/u workup. Code(s): D64.9 - ANEMIA, UNSPECIFIED
[2018-12-19] MEDS: APIXABAN 5 MG TABLET PO SCH ×2 (09:36→21:00)
[2018-12-19] MEDS: FOLIC ACID 1 MG TABLET (FP) PO SCH (09:37)
[2018-12-19] MEDS: RANITIDINE HCL 150 MG TABLET (FP) PO SCH (09:37)
[2018-12-19] MEDS: ASPIRIN COATED 81 MG TABLET.EC PO SCH (09:37)
[2018-12-19] MEDS ORDERED: METOPROLOL TARTRATE 50 MG TABLET (FP) PO SCH (09:45)
--- NOTE | 2018-12-19 12:21 | PN ---
Progress Note, Physician History of Present Illness: 8F w/ pmhx of HTN/HLD, ? CHF, recent catheterization about x3 weeks ago, was brought to the ED by her son due to altered mental status since last Sunday. Per pt's son, pt was recently hospitalized at [facility] and underwent went a cardiac catheterization with some questionable "mitral valvular disease" . After discharge, she was sent to rehab facility to continue PT and remained there for 1 week, however when her son came to visit last Sunday, he was dissatisfied with the treatment at the facility and found several bruises on his mother. As a result, he chose to pull his mother out of the facility and brought her home. Unfortunately, starting the following Sunday, he started noticing that his mother was having lapses in memory, getting more lethargic, and would start switching between speaking in her [place] tongue (Telugu) and Chinese. He denies any prior history of neurological problems and states at baseline his mom is usually sharp. He also says since the cardiac cath, she has been too weak to walk herself which is why she was originally sent to the rehab facility to continue PT. Found to have rapid afib. Pt. is encephalopathic, she is unable to relate clear history but I have been able to gather 1-x 3 months at least she has had progressive gait deterioration to the point she is unable to ambulate without assistance 2- she has tremors more in left hand than right 3-constipation x months 4- unable to relate any further neurologic hx. + urinary incont-she denies it but has a urinefrous odour Upon review of systems, pt states she has persistent non-radiating L-sided chest pain that is similar in nature to the chest pain she had prior to the cardiac cath. Limited ROS could be ascertained from patient due to current mental status. Request for records have been sent to [facility] for further review. POC: Franc Sanchez (son) - TSH-6.77(high). ER course was notable for: (1) Temp 100.6, HR 109, BP 96/61, WBC 11.7, Na 135, Glu 198, Lac 3.2 > 2.7 (2) Trops neg x1, U/A neg, Rapid flu A/B neg (3) IV Tylenol, LR 1L Recent Travel: Denies PAST MEDICAL HISTORY: HTN HLD ? CHF recent catheterization -12/19/18 Improved with sinemet- she is able to ambulate to bathroom, has less bradykinesia, tremors are less intense-she likely has PD, not NPH -Would increase Sinemet to 25/100, 1 tab q6hrs - Current Medication List Current Medications: Active Medications Apixaban (Eliquis -) 5 mg PO BID [facility] Last Admin: 12/19/18 09:36 Dose: 5 mg Aspirin (Ecotrin -) 81 mg PO DAILY [facility] Last Admin: 12/19/18 09:37 Dose: 81 mg Carbidopa/Levodopa (Sinemet 25/100 -) 1 each PO TID [facility] Last Admin: 12/19/18 07:02 Dose: 1 each Folic Acid (Folic Acid -) 1 mg PO DAILY [facility] Last Admin: 12/19/18 09:37 Dose: 1 mg Insulin Aspart (Novolog Vial Sliding Scale -) 1 vial SQ [facility]; Protocol Last Admin: 12/19/18 12:06 Dose: 2 unit Insulin Detemir (Levemir Vial) 24 units SQ [facility] Last Admin: 12/18/18 21:38 Dose: 24 unit Metoprolol Tartrate (Lopressor Injection -) 5 mg IVPB Q4H PRN PRN Reason: HYPERTENSION Metoprolol Tartrate (Lopressor -) 100 mg PO TID [facility] Ranitidine HCl (Zantac -) 300 mg PO DAILY [facility] Last Admin: 12/19/18 09:37 Dose: 300 mg Rosuvastatin Calcium (Crestor -) 20 mg PO [facility] Last Admin: 12/18/18 21:35 Dose: 20 mg - Objective Vital Signs: Vital Signs Temperature 98 F 12/19/18 06:00 Pulse Rate 98 H 12/19/18 06:00 Respiratory Rate 20 12/19/18 06:00 Blood Pressure 128/88 12/19/18 06:00 O2 Sat by Pulse Oximetry (%) 95 12/18/18 21:00 Labs: CBC, BMP 12/19/18 05:30 12/19/18 05:30 INR, PTT INR 1.49 (0.83-1.09) H 12/17/18 08:15
--- NOTE | 2018-12-19 12:49 | PN ---
Progress Note (short form) - Note Progress Note: Patient improved with anti-Parkinson regimen. Left chest pain persists. MRI does not suggest NPH. Patient noted to have approximately T11 endplate fracture on Abdominal CT. MRI Thoracic might be considered to evaluate this fracture which potentially may be etiology for Left chest pain which did not respond to Cardiac intervention. NPH diagnosis much lower on differential diagnosis at this time. - GI/DVT prophylaxis - Consider MRI Thoracic if Chest pain persists despite all interventions. May consider abdominal binder or TLSO if patient manifests axial pain on ambulation - will follow
--- NOTE | 2018-12-19 13:44 | PN ---
Teaching Attending Note Name of Resident: Kelvin Wolfe ATTENDING PHYSICIAN STATEMENT I saw and evaluated the patient. I reviewed the resident's note and discussed the case with the resident. I agree with the resident's findings and plan as documented. SUBJECTIVE: Patient is better today , AAox3, NAD, OBJECTIVE: Vital Signs Temperature 98.2 F 12/19/18 10:00 Pulse Rate 100 H 12/19/18 10:00 Respiratory Rate 20 12/19/18 10:00 Blood Pressure 130/46 L 12/19/18 10:00 O2 Sat by Pulse Oximetry (%) 95 12/19/18 09:00 GENERAL: Awake, alert and oriented. NAD. Pleasant female. HEENT: AT/NC. EOMI. DENNY. NECK: Normal range of motion, supple, no JVD, or masses. LUNGS: CTA B/L. No wheezes noted. HEART: Irregularly irregular. No murmurs noted. ABDOMEN: Soft, NT,NR,ND, guarding or rebound tenderness. MUSCULOSKELETAL: Normal range of motion at all joints. No bony deformities or tenderness. EXTREMITIES: No peripheral edema noted b/l. 2+ dorsalis pedis pulses and radial pulses b/l. NEUROLOGICAL: delayed response to questions. Facial symmetry noted. CBCD WBC 7.3 K/mm3 (4.0-10.0) 12/19/18 05:30 RBC 3.28 M/mm3 (3.60-5.2) L 12/19/18 05:30 Hgb 9.4 GM/dL (10.7-15.3) L 12/19/18 05:30 Hct 28.0 % (32.4-45.2) L 12/19/18 05:30 MCV 85.2 fl (80-96) 12/19/18 05:30 MCHC 33.4 g/dl (32.0-36.0) 12/19/18 05:30 RDW 17.6 % (11.6-15.6) H 12/19/18 05:30 Plt Count 279 K/MM3 (134-434) 12/19/18 05:30 MPV 8.8 fl (7.5-11.1) 12/19/18 05:30 CMP Sodium 138 mmol/L (136-145) 12/19/18 05:30 Potassium 4.0 mmol/L (3.5-5.1) 12/19/18 05:30 Chloride 107 mmol/L (98-107) 12/19/18 05:30 Carbon Dioxide 24 mmol/L (21-32) 12/19/18 05:30 Anion Gap 7 MMOL/L (8-16) L 12/19/18 05:30 BUN 13 mg/dL (7-18) 12/19/18 05:30 Creatinine 0.6 mg/dL (0.55-1.3) 12/19/18 05:30 Creat Clearance w eGFR > 60 (>60) 12/19/18 05:30 Random Glucose 118 mg/dL (74-106) H 12/19/18 05:30 Calcium 7.5 mg/dL (8.5-10.1) L 12/19/18 05:30 Total Bilirubin 1.2 mg/dL (0.2-1) H 12/17/18 08:15 AST 15 U/L (15-37) 12/17/18 08:15 ALT 22 U/L (13-61) 12/17/18 08:15 Alkaline Phosphatase 85 U/L (45-117) 12/17/18 08:15 Total Protein 7.7 g/dl (6.4-8.2) 12/17/18 08:15 Albumin 2.9 g/dl (3.4-5.0) L 12/17/18 08:15 CARDIAC ENZYMES Creatine Kinase 59 U/L (26-192) 12/16/18 20:41 Troponin I < 0.02 ng/ml (0.00-0.05) 12/19/18 01:40 Current Medications Generic Name Dose Route Start Last Admin Trade Name Freq PRN Reason Stop Dose Admin Apixaban 5 mg 12/18/18 10:00 12/19/18 09:36 Eliquis - PO 5 mg BID JESSICA Administration Aspirin 81 mg 12/18/18 10:00 12/19/18 09:37 Ecotrin - PO 81 mg DAILY JESSICA Administration Carbidopa/Levodopa 1 each 12/19/18 14:00 Sinemet 25/100 - PO QID JESSICA Folic Acid 1 mg 12/18/18 10:00 12/19/18 09:37 Folic Acid - PO 1 mg DAILY JESSICA Administration Insulin Aspart 1 vial 12/18/18 07:00 12/19/18 12:06 Novolog Vial Sliding Scale - SQ 2 unit ACHS JESSICA Administration Protocol Insulin Detemir 24 units 12/17/18 22:00 12/18/18 21:38 Levemir Vial SQ 24 unit HS JESSICA Administration Metoprolol Tartrate 5 mg 12/17/18 19:27 Lopressor Injection - IVPB Q4H PRN HYPERTENSION Metoprolol Tartrate 100 mg 12/19/18 14:00 Lopressor - PO TID JESSICA Ranitidine HCl 300 mg 12/18/18 10:00 12/19/18 09:37 Zantac - PO 300 mg DAILY JESSICA Administration Rosuvastatin Calcium 20 mg 12/18/18 22:00 12/18/18 21:35 Crestor - PO 20 mg HS JESSICA Administration Home Medications Medication Instructions Recorded Apixaban [Eliquis] 5 mg PO BID 12/17/18 Aspirin [Ecotrin] 81 mg PO DAILY 12/17/18 Famotidine [Pepcid] 40 mg PO DAILY 12/17/18 Fluphenazine HCl 5 mg PO DAILY 12/17/18 Folic Acid 1 mg PO DAILY 12/17/18 Insulin Glargine,Hum.rec.anlog 24 unit SQ HS 12/17/18 [Lantus] Insulin Lispro [Humalog] 15 unit SQ AM 12/17/18 Metoprolol Succinate [Toprol Xl] 200 mg PO BID 12/17/18 Metoprolol Tartrate 125 mg PO Q8H 12/17/18 Rosuvastatin Calcium [Crestor] 20 mg PO HS 12/17/18 ASSESSMENT AND PLAN: Patient is a 68yo female with h/o MV clip, HTN, DM, HLD, systolic CHF, recent cath at [facility] ( unknown results or procedure), she presented with non specific complaints , diarrhea, cp , and developed fever here. # Acute change of mental status improving, a per Dr. Lassiter patient is improving on Sinemet ,will increase the dose to 4x per time , manuela continue to monitor. as per Dr. pardo patient might have NPH. as per neurology Dr. Lassiter, patient has Parkinsonian's features to be primary PD(asymmetric tremors/rigidity, type of tremors), also started the patient on Sinemet to check whether she improves on Sinemet . B12/folic acid , Tsh Ft4. ventriculomegally on the CT. Patient noted to have some gait difficulty which is improving and complains of tremors in her hands. She appears to have a mask face and may have Parkinson's Disease. # A fib/flutter : with RVR: on Lopressor , adjusted the dose to 75mg tid, as per cardio, will increase to 100mg tid and continue to monitor the HR.on Eliquis will continue 5mg po bid. On aspirin as per cardio we can hold aspirin for now. # Hx of systolic heart failure: echo with mildly reduced EF. hold lasix, s/p IVF # Hypotension, is now normotensive . will continue with Lopressor 100mg tid for rate control as well. will continue to monitor. # S/p fever : unclear source: work up is negative, Echo which showed no vegetations. # Acute dehydration s/p IVF : due to diarrhea, and maybe poor po intake. hold lasix # Diarrhea: follow c -diff and stool cx if it recurs. # T2DM : on levemir on 10 units , resume her 24 units of levemir at HS , cont SSI # T11 Fx: Neurosx consult appreciated Dr Pardo , possible [employer]HB[employer] shunting if needed, and if patient doesn't improve. Records were requested form [facility] are in the chart. follow tsh, ft4,ft3. b12.folic acid
--- NOTE | 2018-12-19 14:20 | PN ---
Physical Exam: SUBJECTIVE: Patient seen and examined at bedside. C/o chest pain overnight. Currently asymptomatic. OBJECTIVE: Vital Signs Period Temp Pulse Resp BP Sys/Castillo Pulse Ox Last 24 Hr 98 F-98.2 F 87-100 16-20 111-130/46-88 95-95 GENERAL: Responds slowly to questions HEAD: Atraumatic/Normocephalic EYES: Slow movement of eyes. EOMI, Sclera is clear ENT: MMM no JVD appreciated NECK: No JVD appreciated, supple LUNGS: Decreased BS at bases HEART: RRR S1S2 nl ABDOMEN: Tender to deep palpation EXTREMITIES:Trace lower extremity edema . Laboratory Results - last 24 hr 12/18/18 12/18/18 12/18/18 05:30 17:45 21:34 WBC RBC Hgb Hct MCV MCH MCHC RDW Plt Count MPV Sodium Potassium Chloride Carbon Dioxide Anion Gap BUN Creatinine Creat Clearance w eGFR POC Glucometer 143 187 Random Glucose Calcium Phosphorus Magnesium Troponin I Free T3 2.9 12/19/18 12/19/18 12/19/18 01:40 05:30 05:30 WBC 7.3 RBC 3.28 L Hgb 9.4 L Hct 28.0 L MCV 85.2 MCH 28.5 MCHC 33.4 RDW 17.6 H Plt Count 279 MPV 8.8 Sodium 138 Potassium 4.0 Chloride 107 Carbon Dioxide 24 Anion Gap 7 L BUN 13 Creatinine 0.6 Creat Clearance w eGFR > 60 POC Glucometer Random Glucose 118 H Calcium 7.5 L Phosphorus 4.0 Magnesium 1.8 Troponin I < 0.02 Free T3 12/19/18 12/19/18 07:00 12:01 WBC RBC Hgb Hct MCV MCH MCHC RDW Plt Count MPV Sodium Potassium Chloride Carbon Dioxide Anion Gap BUN Creatinine Creat Clearance w eGFR POC Glucometer 125 183 Random Glucose Calcium Phosphorus Magnesium Troponin I Free T3 Active Medications Generic Name Dose Route Start Last Admin Trade Name Freq PRN Reason Stop Dose Admin Apixaban 5 mg 12/18/18 10:00 12/19/18 09:36 Eliquis - PO 5 mg BID JESSICA Administration Aspirin 81 mg 12/18/18 10:00 12/19/18 09:37 Ecotrin - PO 81 mg DAILY JESSICA Administration Carbidopa/Levodopa 1 each 12/19/18 14:00 Sinemet 25/100 - PO QID JESSICA Folic Acid 1 mg 12/18/18 10:00 12/19/18 09:37 Folic Acid - PO 1 mg DAILY JESSICA Administration Insulin Aspart 1 vial 12/18/18 07:00 12/19/18 12:06 Novolog Vial Sliding Scale - SQ 2 unit ACHS JESSICA Administration Protocol Insulin Detemir 24 units 12/17/18 22:00 12/18/18 21:38 Levemir Vial SQ 24 unit HS JESSICA Administration Metoprolol Tartrate 5 mg 12/17/18 19:27 Lopressor Injection - IVPB Q4H PRN HYPERTENSION Metoprolol Tartrate 100 mg 12/19/18 14:00 Lopressor - PO TID JESSICA Ranitidine HCl 300 mg 12/18/18 10:00 12/19/18 09:37 Zantac - PO 300 mg DAILY JESSICA Administration Rosuvastatin Calcium 20 mg 12/18/18 22:00 12/18/18 21:35 Crestor - PO 20 mg HS JESSICA Administration ASSESSMENT/PLAN: 68F w/ pmhx of HTN/HLD, CHF, Cardiac arrest w/ ROSC , STEMI with use of IABP ( October/2018) , Mitral leaflets clipping at [facility], was brought to the ED by her son (Juliana) due to altered mental status and generalized weakness. #Acute Metabolic Encephalopathy; r/o infectious vs. neurological etiology -Pt's son endorses that his mother started noticing mental status changes this past Sunday and has had generalized weakness since cardiac procedure at [facility]. -Head CT neg for any acute pathology -Dr Lassiter on board -Initial U/A neg, repeat U/A ordered -BCx/UCx both negative -Initial lactate 3.2 > 2.7, 3rd lactate 2.4; Pt was also febrile at 100.6, and had WBC 11.7, will treat empirically with IV Ceftriaxone for now. -CTAP---> No acute intraabdominal pathology -PT -Evaluated by Dr Mary Anne Monterroso 12/19/18 . Agree with Parkinson medications. Pt clinically improving with Parkinsonion medications. # Diabetes Melitus . Pt receives Long acting insulin 24 U HS Also receives humolog 15 U before breakfast but will withhold that for now and place patient on ISS #Chest pain -Pt complaining of similar chest pain prior to Mitral Valvie clipping. -ASA 81 mg QD. pt was on Aspirin before this admission as per Records received from [facility]. -Troponin negative x 2 -Dr Cifuentes on board -EKG noted above; afib, HR 107, QTc prolonged at 491 ms -avoid QTc prolonging agents #Diarrhea -Stool cx, fecal WBCs, Cdiff tox/Ag, lactoferrin ordered. -Monitor BM #Afib Eliquis 5 PO BID Lopressor 75 PO TID #HTN Metoprolol Tartrate 100 mg PO TID, increased from 75 PO TID as pt's HR observed to >130 upon standing #HLD Crestor 20 mg PO HS #Prophylaxis -Eliquis 5 po bid -Ranitidine 300 QD #FEN -No Fluids -BMP -sodium-controlled diet dispo Tele Visit type - Emergency Visit Emergency Visit: Yes ED Registration Date: 12/17/18 Care time: The patient presented to the Emergency Department on the above date and was hospitalized for further evaluation of their emergent condition. - New Patient This patient is new to me today: No - Critical Care Critical Care patient: No - Discharge Referral Referred to [facility] No
[2018-12-19] MEDS: CARBIDOPA/LEVODOPA 25/100 TABLET (FP) PO SCH ×3 (14:50→21:01)
[2018-12-19] MEDS: METOPROLOL TARTRATE 50 MG TABLET (FP) PO SCH ×2 (14:50→21:00)
[2018-12-19] MEDS: METOPROLOL TARTRATE 5 MG/5 ML VIAL IVPB PRN (15:08)
--- NOTE | 2018-12-19 16:53 | EKG ---
Test Reason : Blood Pressure : / mmHG Vent. Rate : 100 BPM Atrial Rate : 326 BPM P-R Int : 000 ms QRS Dur : 074 ms QT Int : 302 ms P-R-T Axes : 000 -28 -38 degrees QTc Int : 389 ms ATRIAL FIBRILLATION LOW VOLTAGE QRS NONSPECIFIC ST AND T WAVE ABNORMALITY ABNORMAL ECG WHEN COMPARED WITH ECG OF 18-DEC-2018 09:43, NONSPECIFIC T WAVE ABNORMALITY, WORSE IN LATERAL LEADS QT HAS SHORTENED Confirmed by NICHOLE VEGA, YOU ([id number]) on 12/19/2018 4:52:57 PM Referred By: Confirmed By:YOU VARELA MD
[2018-12-19] MEDS: ROSUVASTATIN CA 20 MG TABLET (FP) PO SCH (21:00)
[2018-12-19] MEDS: INSULIN (LEVEMIR) 100 UNITS/ML UNITS SQ SCH (22:29)
[2018-12-20] MEDS: METOPROLOL TARTRATE 50 MG TABLET (FP) PO SCH ×3 (05:58→21:21)
[2018-12-20] MEDS: INSULIN SLIDING SCALE (NOVOLOG) 1 VIAL SQ SCH ×4 (06:47→21:20)
[2018-12-20 07:10] LABS: HEMATOCRIT 29.3 % (32.4-45.2); HEMOGLOBIN 9.7 GM/dL (10.7-15.3); MCH 28.2 pg (25.7-33.7); MEAN CELL VOLUME 85.3 fl (80-96); MEAN PLT VOLUME 8.7 fl (7.5-11.1); PLATELET COUNT 300 K/MM3 (134-434); RBC 3.44 M/mm3 (3.60-5.2); RDW 17.4 % (11.6-15.6); WHITE BLOOD COUNT 7.7 K/mm3 (4.0-10.0)
[2018-12-20 08:59] LABS: ANION GAP 8 MMOL/L (8-16); BLOOD UREA NITROGEN 9 mg/dL (7-18); CALCIUM 8.4 mg/dL (8.5-10.1); CHLORIDE 107 mmol/L (98-107); CO2 24 mmol/L (21-32); CREATININE 0.7 mg/dL (0.55-1.3); GLUCOSE,RANDOM 112 mg/dL (74-106); MAGNESIUM 1.8 mg/dL (1.8-2.4); POTASSIUM 4.3 mmol/L (3.5-5.1); SODIUM 139 mmol/L (136-145)
[2018-12-20] MEDS: CARBIDOPA/LEVODOPA 25/100 TABLET (FP) PO SCH ×4 (10:24→21:21)
[2018-12-20] MEDS: FOLIC ACID 1 MG TABLET (FP) PO SCH (10:24)
[2018-12-20] MEDS: RANITIDINE HCL 150 MG TABLET (FP) PO SCH (10:24)
[2018-12-20] MEDS: APIXABAN 5 MG TABLET PO SCH ×2 (10:25→21:21)
--- NOTE | 2018-12-20 10:45 | PN ---
Progress Note (short form) - Note Progress Note: Patient appearing better today. Will follow
[2018-12-20] MEDS: METOPROLOL TARTRATE 5 MG/5 ML VIAL IVPB PRN (11:54)
--- NOTE | 2018-12-20 20:19 | PN ---
Physical Exam: SUBJECTIVE: Patient seen and examined at bedside. No acute events overnight. OBJECTIVE: Vital Signs Period Temp Pulse Resp BP Sys/Castillo Pulse Ox Last 24 Hr 96.4 F-98 F 82-145 18-22 108-133/66-92 97-97 GENERAL:Masked like Facies. NAD HEAD: Atraumatic/Normocephalic EYES: Sclera are clear, EOMI ENT: MMM no JVD appreciated NECK: No JVD appreciated, supple LUNGS: Decreased BS at bases HEART: Irregularly irregular ABDOMEN: Tender to deep palpation EXTREMITIES:Trace lower extremity edema . Laboratory Results - last 24 hr 12/19/18 12/20/18 12/20/18 21:02 05:30 05:30 WBC 7.7 RBC 3.44 L Hgb 9.7 L Hct 29.3 L MCV 85.3 MCH 28.2 MCHC 33.0 RDW 17.4 H Plt Count 300 MPV 8.7 Sodium 139 Potassium 4.3 Chloride 107 Carbon Dioxide 24 Anion Gap 8 BUN 9 Creatinine 0.7 Creat Clearance w eGFR > 60 POC Glucometer 117 Random Glucose 112 H Calcium 8.4 L Phosphorus 3.0 Magnesium 1.8 Serum Folate 33 H TSH 3.89 H Free T4 1.33 12/20/18 12/20/18 12/20/18 06:46 11:36 16:22 WBC RBC Hgb Hct MCV MCH MCHC RDW Plt Count MPV Sodium Potassium Chloride Carbon Dioxide Anion Gap BUN Creatinine Creat Clearance w eGFR POC Glucometer 129 186 208 Random Glucose Calcium Phosphorus Magnesium Serum Folate TSH Free T4 Active Medications Generic Name Dose Route Start Last Admin Trade Name Freq PRN Reason Stop Dose Admin Apixaban 5 mg 12/18/18 10:00 12/20/18 10:25 Eliquis - PO 5 mg BID JESSICA Administration Aspirin 81 mg 12/18/18 10:00 12/19/18 09:37 Ecotrin - PO 81 mg DAILY JESSICA Administration Carbidopa/Levodopa 1 each 12/19/18 14:00 12/20/18 17:48 Sinemet 25/100 - PO 1 each QID JESSICA Administration Folic Acid 1 mg 12/18/18 10:00 12/20/18 10:24 Folic Acid - PO 1 mg DAILY JESSICA Administration Insulin Aspart 1 vial 12/18/18 07:00 12/20/18 17:07 Novolog Vial Sliding Scale - SQ Not Given ACHS [facility] Protocol Insulin Detemir 24 units 12/17/18 22:00 12/19/18 22:29 Levemir Vial SQ Not Given [facility] Metoprolol Tartrate 5 mg 12/17/18 19:27 12/20/18 11:54 Lopressor Injection - IVPB 5 mg Q4H PRN Administration HYPERTENSION Metoprolol Tartrate 100 mg 12/19/18 14:00 12/20/18 13:38 Lopressor - PO 100 mg TID JESSICA Administration Ranitidine HCl 300 mg 12/18/18 10:00 12/20/18 10:24 Zantac - PO 300 mg DAILY JESSICA Administration Rosuvastatin Calcium 20 mg 12/18/18 22:00 12/19/18 21:00 Crestor - PO 20 mg HS JESSICA Administration ASSESSMENT/PLAN: 68F w/ pmhx of HTN/HLD, CHF, Cardiac arrest w/ ROSC , STEMI with use of IABP ( October/2018) , Mitral leaflets clipping at [facility], was brought to the ED by her son (Juliana) due to altered mental status and generalized weakness. #Acute Metabolic Encephalopathy; r/o infectious vs. neurological etiology -Pt's son endorses that his mother started noticing mental status changes this past Sunday and has had generalized weakness since cardiac procedure at [facility]. -Head CT neg for any acute pathology -Dr Lassiter on board -Initial U/A neg, repeat U/A ordered -BCx/UCx both negative -Initial lactate 3.2 > 2.7, 3rd lactate 2.4; Pt was also febrile at 100.6, and had WBC 11.7, will treat empirically with IV Ceftriaxone for now. -CTAP---> No acute intraabdominal pathology -PT -Evaluated by Dr Mary Anne Monterroso 12/19/18 . Agree with Parkinson medications. Pt clinically improving with Parkinsonion medications. Dr Monterroso--> May consider abdominal binder for potential relief from chest wall pain # Diabetes Melitus . Pt receives Long acting insulin 24 U HS--> will switch to 12 U SQ AM as pt's BGM have been low 100's Also receives humolog 15 U before breakfast but will withhold that for now and place patient on ISS #Chest pain -Pt complaining of similar chest pain prior to Mitral Valvie clipping. -ASA 81 mg QD. pt was on Aspirin before this admission as per Records received from [facility]. -Troponin negative x 2 -Dr Cifuentes on board -EKG noted above; afib, HR 107, QTc prolonged at 491 ms -avoid QTc prolonging agents #Diarrhea -Stool cx, fecal WBCs, Cdiff tox/Ag, lactoferrin ordered. -Monitor BM #Afib Eliquis 5 PO BID Toprol 100 TID #HTN Metoprolol Tartrate 100 mg PO TID #HLD Crestor 20 mg PO HS #Prophylaxis -Eliquis 5 po bid -Ranitidine 300 QD #FEN -No Fluids -BMP -sodium-controlled diet dispo Tele Visit type - Emergency Visit Emergency Visit: Yes ED Registration Date: 12/17/18 Care time: The patient presented to the Emergency Department on the above date and was hospitalized for further evaluation of their emergent condition. - New Patient This patient is new to me today: No - Critical Care Critical Care patient: No - Discharge Referral Referred to [facility] Med P.C.: No
--- NOTE | 2018-12-20 20:59 | PN ---
Teaching Attending Note Name of Resident: Kelvin Wolfe ATTENDING PHYSICIAN STATEMENT I saw and evaluated the patient. I reviewed the resident's note and discussed the case with the resident. I agree with the resident's findings and plan as documented. SUBJECTIVE: Patient is feeling better, still weak when she ambulates. improving OBJECTIVE: Vital Signs Temperature 97.2 F L 12/20/18 17:00 Pulse Rate 85 12/20/18 17:00 Respiratory Rate 20 12/20/18 17:00 Blood Pressure 114/68 12/20/18 17:00 O2 Sat by Pulse Oximetry (%) 97 12/20/18 08:18 GENERAL: Awake, alert and oriented. NAD. Pleasant female. HEENT: AT/NC. EOMI. DENNY. NECK: Normal range of motion, supple, no JVD, or masses. LUNGS: CTA B/L. No wheezes noted. HEART: Irregularly irregular. No murmurs noted. ABDOMEN: Soft, NT,NR,ND, guarding or rebound tenderness. MUSCULOSKELETAL: Normal range of motion at all joints. No bony deformities or tenderness. EXTREMITIES: No peripheral edema noted b/l. 2+ dorsalis pedis pulses and radial pulses b/l. NEUROLOGICAL: delayed response to questions. Facial symmetry noted. CBCD WBC 7.7 K/mm3 (4.0-10.0) 12/20/18 05:30 RBC 3.44 M/mm3 (3.60-5.2) L 12/20/18 05:30 Hgb 9.7 GM/dL (10.7-15.3) L 12/20/18 05:30 Hct 29.3 % (32.4-45.2) L 12/20/18 05:30 MCV 85.3 fl (80-96) 12/20/18 05:30 MCHC 33.0 g/dl (32.0-36.0) 12/20/18 05:30 RDW 17.4 % (11.6-15.6) H 12/20/18 05:30 Plt Count 300 K/MM3 (134-434) 12/20/18 05:30 MPV 8.7 fl (7.5-11.1) 12/20/18 05:30 CMP Sodium 139 mmol/L (136-145) 12/20/18 05:30 Potassium 4.3 mmol/L (3.5-5.1) 12/20/18 05:30 Chloride 107 mmol/L (98-107) 12/20/18 05:30 Carbon Dioxide 24 mmol/L (21-32) 12/20/18 05:30 Anion Gap 8 MMOL/L (8-16) 12/20/18 05:30 BUN 9 mg/dL (7-18) 12/20/18 05:30 Creatinine 0.7 mg/dL (0.55-1.3) 12/20/18 05:30 Creat Clearance w eGFR > 60 (>60) 12/20/18 05:30 Random Glucose 112 mg/dL (74-106) H 12/20/18 05:30 Calcium 8.4 mg/dL (8.5-10.1) L 12/20/18 05:30 Total Bilirubin 1.2 mg/dL (0.2-1) H 12/17/18 08:15 AST 15 U/L (15-37) 12/17/18 08:15 ALT 22 U/L (13-61) 12/17/18 08:15 Alkaline Phosphatase 85 U/L (45-117) 12/17/18 08:15 Total Protein 7.7 g/dl (6.4-8.2) 12/17/18 08:15 Albumin 2.9 g/dl (3.4-5.0) L 12/17/18 08:15 CARDIAC ENZYMES Creatine Kinase 59 U/L (26-192) 12/16/18 20:41 Troponin I < 0.02 ng/ml (0.00-0.05) 12/19/18 01:40 Current Medications Generic Name Dose Route Start Last Admin Trade Name Freq PRN Reason Stop Dose Admin Apixaban 5 mg 12/18/18 10:00 12/20/18 10:25 Eliquis - PO 5 mg BID JESSICA Administration Aspirin 81 mg 12/18/18 10:00 12/19/18 09:37 Ecotrin - PO 81 mg DAILY JESSICA Administration Carbidopa/Levodopa 1 each 12/19/18 14:00 12/20/18 17:48 Sinemet 25/100 - PO 1 each QID JESSICA Administration Folic Acid 1 mg 12/18/18 10:00 12/20/18 10:24 Folic Acid - PO 1 mg DAILY JESSICA Administration Insulin Aspart 1 vial 12/18/18 07:00 12/20/18 17:07 Novolog Vial Sliding Scale - SQ Not Given [facility] COUNT INCLUDES [facility] Protocol Insulin Detemir 12 units 12/21/18 07:00 Levemir Vial SQ DAILY@0700 COUNT INCLUDES [facility] Metoprolol Tartrate 5 mg 12/17/18 19:27 12/20/18 11:54 Lopressor Injection - IVPB 5 mg Q4H PRN Administration HYPERTENSION Metoprolol Tartrate 100 mg 12/19/18 14:00 12/20/18 13:38 Lopressor - PO 100 mg TID JESSICA Administration Ranitidine HCl 300 mg 12/18/18 10:00 12/20/18 10:24 Zantac - PO 300 mg DAILY JESSICA Administration Rosuvastatin Calcium 20 mg 12/18/18 22:00 12/19/18 21:00 Crestor - PO 20 mg HS JESSICA Administration Home Medications Medication Instructions Recorded Apixaban [Eliquis] 5 mg PO BID 12/17/18 Aspirin [Ecotrin] 81 mg PO DAILY 12/17/18 Famotidine [Pepcid] 40 mg PO DAILY 12/17/18 Fluphenazine HCl 5 mg PO DAILY 12/17/18 Folic Acid 1 mg PO DAILY 12/17/18 Insulin Glargine,Hum.rec.anlog 24 unit SQ HS 12/17/18 [Lantus] Insulin Lispro [Humalog] 15 unit SQ AM 12/17/18 Metoprolol Succinate [Toprol Xl] 200 mg PO BID 12/17/18 Metoprolol Tartrate 125 mg PO Q8H 12/17/18 Rosuvastatin Calcium [Crestor] 20 mg PO HS 12/17/18 ASSESSMENT AND PLAN: Patient is a 68yo female with h/o MV clip, HTN, DM, HLD, systolic CHF, recent cath at [facility] ( unknown results or procedure), she presented with non specific complaints , diarrhea, cp , and developed fever here. # Acute change of mental status improving, as per Dr. Lassiter patient is improving on Sinemet ,will increase the dose to 4x per time , will continue to monitor. as per Dr. pardo neurosx; patient might have NPH. as per neurology Dr. Lassiter , patient has Parkinsonian's features # A fib/flutter : with RVR: on Lopressor , adjusted the dose to 100mg tid and continue to monitor the HR.on Eliquis will continue 5mg po bid. # Mitral valce clip: patient was started on aspirin at [facility] will continue # Hx of systolic heart failure: echo with mildly reduced EF. hold lasix, s/p IVF # Hypotension, is now normotensive . will continue with Lopressor 100mg tid for rate control as well. will continue to monitor. # S/p fever : unclear source: work up is negative, Echo which showed no vegetations. # Acute dehydration s/p IVF : due to diarrhea, and maybe poor po intake. hold lasix # Diarrhea: follow c -diff and stool cx if it recurs. 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 Records were requested form [facility] are in the chart.
[2018-12-20] MEDS: ROSUVASTATIN CA 20 MG TABLET (FP) PO SCH (21:21)
[2018-12-21] MEDS: METOPROLOL TARTRATE 50 MG TABLET (FP) PO SCH ×3 (05:10→21:39)
--- NOTE | 2018-12-21 05:43 | PN ---
Progress Note, Physician Chief Complaint: Pt denies chest pain, palpitations. History of Present Illness: 68 yo Female (b. [place]) with PMH HTN, HLD, systoic and diastolic CHF ( borderline reduced LVEF on 2019 ECHO), Recent cath 3 weeks ago at [facility]?, Atrial fibrillation, very poor historian, comes from home stating her son told her to come for evaluation. She is confused and unable to adequately explain why she is here. Going through thorough review of systems she complains of neck weakness and pain, chest pain similar to her pain 3 weeks ago prior to her procedure, abdominal pain, and some confusion. She denies other symptoms. Of note she is unable to state how she got here but is able to confirm ambulence when prompted. She is oriented to time place and self, however is unable to explain exactly why she is here or what her current concerns are. Retrieval of [facility] records from 11/07/2018 notes severe symptomatic MR with anterior leaflet MVP and posterior leaflet restriction; this resulted in transeptal catheterization surgery 11/20/2018 for placement of single NTR Mitraclip in the A2P2 position. - Current Medication List Current Medications: Active Medications Apixaban (Eliquis -) 5 mg PO BID [facility] Last Admin: 12/20/18 21:21 Dose: 5 mg Aspirin (Ecotrin -) 81 mg PO DAILY [facility] Last Admin: 12/19/18 09:37 Dose: 81 mg Carbidopa/Levodopa (Sinemet 25/100 -) 1 each PO QID [facility] Last Admin: 12/20/18 21:21 Dose: 1 each Folic Acid (Folic Acid -) 1 mg PO DAILY [facility] Last Admin: 12/20/18 10:24 Dose: 1 mg Insulin Aspart (Novolog Vial Sliding Scale -) 1 vial SQ ACHS [facility]; Protocol Last Admin: 12/20/18 21:20 Dose: 2 unit Insulin Detemir (Levemir Vial) 12 units SQ DAILY@0700 [facility] Metoprolol Tartrate (Lopressor Injection -) 5 mg IVPB Q4H PRN PRN Reason: HYPERTENSION Last Admin: 12/20/18 11:54 Dose: 5 mg Metoprolol Tartrate (Lopressor -) 100 mg PO TID [facility] Last Admin: 12/21/18 05:10 Dose: 100 mg Ranitidine HCl (Zantac -) 300 mg PO DAILY [facility] Last Admin: 12/20/18 10:24 Dose: 300 mg Rosuvastatin Calcium (Crestor -) 20 mg PO HS JESSICA Last Admin: 12/20/18 21:21 Dose: 20 mg - Objective Vital Signs: Vital Signs Temperature 98.2 F 12/21/18 05:14 Pulse Rate 80 12/21/18 05:14 Respiratory Rate 20 12/21/18 05:14 Blood Pressure 120/64 12/21/18 05:14 O2 Sat by Pulse Oximetry (%) 97 12/20/18 20:00 Labs: CBC, BMP 12/20/18 05:30 12/20/18 05:30 INR, PTT INR 1.49 (0.83-1.09) H 12/17/18 08:15 Problem List - Problems (1) Hypothyroid Assessment/Plan: elevated TSH; Free T3 and T4 WNL. Code(s): E03.9 - HYPOTHYROIDISM, UNSPECIFIED (2) Systolic CHF Assessment/Plan: ECHO: borderline reduced LVEF; normal LV size; mild LAE and CHIN;mild IW hypokinesis; mod-severe TR, with moderate pulmonary HTN; mild MR. On metoprolol for CHF and AF. Start ACEI or ARB when BP allows (BP may improve once HR is better-controlled) for HTN, CHF (renal protection). BUN?cr, electrolytes, daily weight, Is and Os. Hx severe MR-->Mitraclip 11/20/2018 (see under "mitral valve repair"). F/u records of stress test or coronary angiogram, likely done while assessing pt for mitral valve procedure; if not done, will order coronary artery workup when stable. 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 F/u with neurologist. Code(s): R41.0 - DISORIENTATION, UNSPECIFIED (4) Elevated lactic acid level Assessment/Plan: Afebrile; initially elevated WBC; ?source of infection. Pt was given IV fluids; now urinating. F/u workup. Code(s): R79.89 - OTHER SPECIFIED ABNORMAL FINDINGS OF BLOOD CHEMISTRY (5) Hypomagnesemia Assessment/Plan: repleted Mg; keep 2.0-2.4. Code(s): E83.42 - HYPOMAGNESEMIA (6) Atrial fibrillation with rapid ventricular response Assessment/Plan: On metoprolol tartrate 100 mg tid; required one bolus IV 5 mg so far today ( when pt rechecked in afternoon) of 5 mg IVP for rapid HR. On apixaban. F/u anemia w/u. S/p Mitraclip for severe MR/MVP 11/20/2018 (see "mitral valve repair"). Mental status reported steadily deteriorating since 10/08. (At [facility]: on metoprolol ER 200 mg bid, with metorpolol tartrate 125 mg tid prn. Also on Lasix 40 mg bid, Apixaban 5 mg bid; Losartan ?50 mg daily). Code(s): I48.91 - UNSPECIFIED ATRIAL FIBRILLATION (7) Anemia Assessment/Plan: decreasing Hb after hydration; f/u workup. Code(s): D64.9 - ANEMIA, UNSPECIFIED (8) FH: mitral valve repair Assessment/Plan: s/p Mitral valve clip 11/20/2018. Pt is presently on apixaban for AF. ASA 325 mg daily is generally recommended for 6-12 months after clip placement ( pt is presently on 81 mg daily here). While awaiting recommendations of [facility] team that placed the Mitraclip, would consider increasing the dose to 325 mg daily, unless contraindicated by findings of anemia workup. Code(s): Z82.49 - FAMILY HX OF ISCHEM HEART DIS AND OTH DIS OF THE [facility]
[2018-12-21] MEDS: INSULIN SLIDING SCALE (NOVOLOG) 1 VIAL SQ SCH ×4 (06:04→21:40)
[2018-12-21] MEDS: INSULIN (LEVEMIR) 100 UNITS/ML UNITS SQ SCH (06:04)
--- NOTE | 2018-12-21 08:35 | PN ---
Progress Note (short form) - Note Progress Note: Coverage for Dr. Bere Cifuentes Chief Complaint: Events noted, notes reviewed, confused and disoriented, denies any chest pain or dyspnea History of Present Illness: Seen and examined on telemetry. Events noted, notes reviewed, confused and disoriented, denies any chest pain or dyspnea - Current Medication List Current Medications: Current Medications Apixaban (Eliquis -) 5 mg PO BID [facility] Last Admin: 12/20/18 21:21 Dose: 5 mg Aspirin (Ecotrin -) 81 mg PO DAILY [facility] Last Admin: 12/19/18 09:37 Dose: 81 mg Carbidopa/Levodopa (Sinemet 25/100 -) 1 each PO QID [facility] Last Admin: 12/20/18 21:21 Dose: 1 each Folic Acid (Folic Acid -) 1 mg PO DAILY [facility] Last Admin: 12/20/18 10:24 Dose: 1 mg Insulin Aspart (Novolog Vial Sliding Scale -) 1 vial SQ [facility]; Protocol Last Admin: 12/21/18 06:04 Dose: Not Given Insulin Detemir (Levemir Vial) 12 units SQ DAILY@0700 [facility] Last Admin: 12/21/18 06:04 Dose: Not Given Metoprolol Tartrate (Lopressor Injection -) 5 mg IVPB Q4H PRN PRN Reason: HYPERTENSION Last Admin: 12/20/18 11:54 Dose: 5 mg Metoprolol Tartrate (Lopressor -) 100 mg PO TID [facility] Last Admin: 12/21/18 05:10 Dose: 100 mg Ranitidine HCl (Zantac -) 300 mg PO DAILY [facility] Last Admin: 12/20/18 10:24 Dose: 300 mg Rosuvastatin Calcium (Crestor -) 20 mg PO [facility] Last Admin: 12/20/18 21:21 Dose: 20 mg Review of Systems Cardiovascular: As noted above Respiratory: denies: denies: Cough or Sputum Production Gastrointestinal: denies: Nausea, Vomiting, Diarrhea, Constipation or Abdominal Discomfort Musculoskeletal: No Symptoms Reported Endocrine: No Symptoms Reported - Objective Vital Signs: Last Vital Signs Temp Pulse Resp BP Pulse Ox 98.2 F 80 20 120/64 97 12/21/18 05:14 12/21/18 05:14 12/21/18 05:14 12/21/18 05:14 12/20/18 20:00 Intake & Output 12/18/18 12/19/18 12/20/18 12/21/18 23:59 23:59 23:59 23:59 Intake Total 1250 1260 730 10 Output Total 2 300 Balance 1248 960 730 10 Weight 164 lb 162 lb 9.6 oz 162 lb 6.4 oz Constitutional: No Distress Neck: Supple Negative JVD No Bruit Cardiovascular: S1 S2 Irregularly Irregular Respiratory: Diminished Breath Sounds Bilaterally Gastrointestinal: Soft Benign Normal Bowel Sounds Ext: Edema Labs: CBC, BMP 12/21/18 06:00 12/21/18 06:00 Hepatic Panel Total Bilirubin 1.2 mg/dL (0.2-1) H 12/17/18 08:15 AST 15 U/L (15-37) 12/17/18 08:15 ALT 22 U/L (13-61) 12/17/18 08:15 Alkaline Phosphatase 85 U/L (45-117) 12/17/18 08:15 Albumin 2.9 g/dl (3.4-5.0) L 12/17/18 08:15 INR, PTT INR 1.49 (0.83-1.09) H 12/17/18 08:15 Assessment/Plan ASSESSMENT: 1. Systolic LV dysfunction with chronic class I-II NYHA classification LV failure, clinically compensated/euvolemic 2. 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 Persistent atrial fibrillation [id number] score of 4 on A/C 4. Altered mental status etiology to be determined 5. HTN 6. DM 7. Hypercholestrolemia PLAN: 1. Continue Lopressor 2. Continue A/C with Eliquis with caution and close monitoring of CBC 3. Continue ASA with caution and close monitoring of CBC 4. Continue Crestor 5. Ideally should be on ACEI or ARBS unless contraindicated Marly Mckeon MD
[2018-12-21 08:48] LABS: HEMATOCRIT 28.8 % (32.4-45.2); HEMOGLOBIN 9.5 GM/dL (10.7-15.3); MCHC 32.8 g/dl (32.0-36.0); MEAN CELL VOLUME 85.4 fl (80-96); MEAN PLT VOLUME 9.2 fl (7.5-11.1); PLATELET COUNT 312 K/MM3 (134-434); RBC 3.38 M/mm3 (3.60-5.2); RDW 17.4 % (11.6-15.6); WHITE BLOOD COUNT 6.7 K/mm3 (4.0-10.0)
[2018-12-21 09:14] LABS: ANION GAP 10 MMOL/L (8-16); BLOOD UREA NITROGEN 9 mg/dL (7-18); CALCIUM 8.1 mg/dL (8.5-10.1); CHLORIDE 106 mmol/L (98-107); CO2 21 mmol/L (21-32); CREATININE 0.8 mg/dL (0.55-1.3); GLUCOSE,RANDOM 121 mg/dL (74-106); MAGNESIUM 1.9 mg/dL (1.8-2.4); PHOSPHOROUS 3.6 mg/dL (2.5-4.9); POTASSIUM 4.2 mmol/L (3.5-5.1); SODIUM 136 mmol/L (136-145)
[2018-12-21] MEDS: CARBIDOPA/LEVODOPA 25/100 TABLET (FP) PO SCH ×4 (11:06→21:39)
[2018-12-21] MEDS: FOLIC ACID 1 MG TABLET (FP) PO SCH (11:06)
[2018-12-21] MEDS: APIXABAN 5 MG TABLET PO SCH ×2 (11:06→21:39)
[2018-12-21] MEDS: RANITIDINE HCL 150 MG TABLET (FP) PO SCH (11:06)
[2018-12-21] MEDS: VALSARTAN 40 MG TABLET (FP) PO SCH (15:09)
--- NOTE | 2018-12-21 20:43 | PN ---
Progress Note (short form) - Note Progress Note: Patient is feeling better ,improving slowly Vital Signs Temperature 97.3 F L 12/21/18 17:00 Pulse Rate 94 H 12/21/18 17:00 Respiratory Rate 20 12/21/18 17:00 Blood Pressure 147/90 12/21/18 17:00 O2 Sat by Pulse Oximetry (%) 97 12/21/18 09:00 GENERAL: Awake, alert and oriented. NAD. Pleasant female. HEENT: AT/NC. EOMI. DENNY. NECK: Normal range of motion, supple, no JVD, or masses. LUNGS: CTA B/L. No wheezes noted. HEART: Irregularly irregular. No murmurs noted. ABDOMEN: Soft, NT,NR,ND, guarding or rebound tenderness. MUSCULOSKELETAL: Normal range of motion at all joints. No bony deformities or tenderness. EXTREMITIES: No peripheral edema noted b/l. 2+ dorsalis pedis pulses and radial pulses b/l. NEUROLOGICAL: delayed response to questions. Facial symmetry noted. CBCD WBC 6.7 K/mm3 (4.0-10.0) 12/21/18 06:00 RBC 3.38 M/mm3 (3.60-5.2) L 12/21/18 06:00 Hgb 9.5 GM/dL (10.7-15.3) L 12/21/18 06:00 Hct 28.8 % (32.4-45.2) L 12/21/18 06:00 MCV 85.4 fl (80-96) 12/21/18 06:00 MCHC 32.8 g/dl (32.0-36.0) 12/21/18 06:00 RDW 17.4 % (11.6-15.6) H 12/21/18 06:00 Plt Count 312 K/MM3 (134-434) 12/21/18 06:00 MPV 9.2 fl (7.5-11.1) 12/21/18 06:00 CMP Sodium 136 mmol/L (136-145) 12/21/18 06:00 Potassium 4.2 mmol/L (3.5-5.1) 12/21/18 06:00 Chloride 106 mmol/L (98-107) 12/21/18 06:00 Carbon Dioxide 21 mmol/L (21-32) 12/21/18 06:00 Anion Gap 10 MMOL/L (8-16) 12/21/18 06:00 BUN 9 mg/dL (7-18) 12/21/18 06:00 Creatinine 0.8 mg/dL (0.55-1.3) 12/21/18 06:00 Creat Clearance w eGFR > 60 (>60) 12/21/18 06:00 Random Glucose 121 mg/dL (74-106) H 12/21/18 06:00 Calcium 8.1 mg/dL (8.5-10.1) L 12/21/18 06:00 Total Bilirubin 1.2 mg/dL (0.2-1) H 12/17/18 08:15 AST 15 U/L (15-37) 12/17/18 08:15 ALT 22 U/L (13-61) 12/17/18 08:15 Alkaline Phosphatase 85 U/L (45-117) 12/17/18 08:15 Total Protein 7.7 g/dl (6.4-8.2) 12/17/18 08:15 Albumin 2.9 g/dl (3.4-5.0) L 12/17/18 08:15 CARDIAC ENZYMES Creatine Kinase 59 U/L (26-192) 12/16/18 20:41 Troponin I < 0.02 ng/ml (0.00-0.05) 12/19/18 01:40 Home Medications Medication Instructions Recorded Apixaban [Eliquis] 5 mg PO BID 12/17/18 Aspirin [Ecotrin] 81 mg PO DAILY 12/17/18 Famotidine [Pepcid] 40 mg PO DAILY 12/17/18 Fluphenazine HCl 5 mg PO DAILY 12/17/18 Folic Acid 1 mg PO DAILY 12/17/18 Insulin Glargine,Hum.rec.anlog 24 unit SQ HS 12/17/18 [Lantus] Insulin Lispro [Humalog] 15 unit SQ AM 12/17/18 Metoprolol Succinate [Toprol Xl] 200 mg PO BID 12/17/18 Metoprolol Tartrate 125 mg PO Q8H 12/17/18 Rosuvastatin Calcium [Crestor] 20 mg PO HS 12/17/18 Current Medications Generic Name Dose Route Start Last Admin Trade Name Freq PRN Reason Stop Dose Admin Apixaban 5 mg 12/18/18 10:00 12/21/18 11:06 Eliquis - PO 5 mg BID JESSICA Administration Aspirin 81 mg 12/18/18 10:00 12/19/18 09:37 Ecotrin - PO 81 mg DAILY JESSICA Administration Carbidopa/Levodopa 1 each 12/19/18 14:00 12/21/18 17:26 Sinemet 25/100 - PO 1 each QID JESSICA Administration Folic Acid 1 mg 12/18/18 10:00 12/21/18 11:06 Folic Acid - PO 1 mg DAILY JESSICA Administration Insulin Aspart 1 vial 12/18/18 07:00 12/21/18 17:07 Novolog Vial Sliding Scale - SQ 2 unit ACHS JESSICA Administration Protocol Insulin Detemir 12 units 12/21/18 07:00 12/21/18 06:04 Levemir Vial SQ Not Given DAILY@0700 [facility] Metoprolol Tartrate 5 mg 12/17/18 19:27 12/20/18 11:54 Lopressor Injection - IVPB 5 mg Q4H PRN Administration HYPERTENSION Metoprolol Tartrate 100 mg 12/19/18 14:00 12/21/18 15:09 Lopressor - PO 100 mg TID JESSICA Administration Ranitidine HCl 300 mg 12/18/18 10:00 12/21/18 11:06 Zantac - PO 300 mg DAILY JESSICA Administration Rosuvastatin Calcium 20 mg 12/18/18 22:00 12/20/18 21:21 Crestor - PO 20 mg HS JESSICA Administration Valsartan 40 mg 12/21/18 12:30 12/21/18 15:09 Diovan - PO 40 mg DAILY JESSICA Administration Assessment and plan: Patient is a 68yo female with h/o MV clip, HTN, DM, HLD, systolic CHF, recent cath at [facility] ( unknown results or procedure), she presented with non specific complaints , diarrhea, cp , and developed fever here. # Acute change of mental status improving, as per Dr. Lassiter patient is improving on Sinemet ,will increase the dose to 4x per time. as per Dr. sawyer neurosx; does not believe that patient has NPH. as per neurology Dr. Lassiter, patient has most likely Parkinsonism. # A fib/flutter : rate is controlled on Lopressor , continue with 100mg tid , will continue to monitor the HR.on Eliquis will continue 5mg po bid. #MR post Sandy-Clip : patient was started on aspirin at [facility] will continue # Hx of systolic heart failure: echo with mildly reduced EF. hold lasix, s/p IVF # Hypotension, is now normotensive . will continue with Lopressor 100mg tid for rate control as well. will continue to monitor. # S/p fever : unclear source: work up is negative, Echo which showed no vegetations. # Acute dehydration s/p IVF : due to diarrhea, and maybe poor po intake. hold lasix # Diarrhea: follow c -diff and stool cx if it recurs. # T2DM : on levemir continue with 12 units hs, since the sugar was low in am , cont SSI # T11 Fx: Neurosx consult appreciated Dr Sawyer. Records were requested form [facility] are in the chart. DVT Px: Eliquis Visit type - Emergency Visit Emergency Visit: Yes ED Registration Date: 12/17/18 Care time: The patient presented to the Emergency Department on the above date and was hospitalized for further evaluation of their emergent condition. - New Patient This patient is new to me today: No - Critical Care Critical Care patient: No - Discharge Referral Referred to [facility] No
[2018-12-21] MEDS: ROSUVASTATIN CA 20 MG TABLET (FP) PO SCH (21:39)
[2018-12-22] MEDS: INSULIN SLIDING SCALE (NOVOLOG) 1 VIAL SQ SCH ×4 (06:23→22:04)
[2018-12-22] MEDS: INSULIN (LEVEMIR) 100 UNITS/ML UNITS SQ SCH (06:25)
[2018-12-22] MEDS: METOPROLOL TARTRATE 50 MG TABLET (FP) PO SCH ×3 (06:25→21:26)
--- NOTE | 2018-12-22 08:03 | PN ---
Progress Note (short form) - Note Progress Note: Coverage for Dr. Bere Cifuentes Chief Complaint: Events noted, notes reviewed, remains confused and disoriented but improved, denies any chest pain or dyspnea, complaining of palpitation History of Present Illness: Seen and examined on telemetry. Events noted, notes reviewed, remains confused and disoriented but improved, denies any chest pain or dyspnea, complaining of palpitation - Current Medication List Current Medications: Current Medications Apixaban (Eliquis -) 5 mg PO BID [facility] Last Admin: 12/21/18 21:39 Dose: 5 mg Aspirin (Ecotrin -) 81 mg PO DAILY [facility] Last Admin: 12/19/18 09:37 Dose: 81 mg Carbidopa/Levodopa (Sinemet 25/100 -) 1 each PO QID [facility] Last Admin: 12/21/18 21:39 Dose: 1 each Folic Acid (Folic Acid -) 1 mg PO DAILY [facility] Last Admin: 12/21/18 11:06 Dose: 1 mg Insulin Aspart (Novolog Vial Sliding Scale -) 1 vial SQ [facility]; Protocol Last Admin: 12/22/18 06:23 Dose: Not Given Insulin Detemir (Levemir Vial) 12 units SQ DAILY@0700 [facility] Last Admin: 12/22/18 06:25 Dose: 12 units Metoprolol Tartrate (Lopressor Injection -) 5 mg IVPB Q4H PRN PRN Reason: HYPERTENSION Last Admin: 12/20/18 11:54 Dose: 5 mg Metoprolol Tartrate (Lopressor -) 100 mg PO TID [facility] Last Admin: 12/22/18 06:25 Dose: 100 mg Ranitidine HCl (Zantac -) 300 mg PO DAILY [facility] Last Admin: 12/21/18 11:06 Dose: 300 mg Rosuvastatin Calcium (Crestor -) 20 mg PO HS [facility] Last Admin: 12/21/18 21:39 Dose: 20 mg Valsartan (Diovan -) 40 mg PO DAILY [facility] Last Admin: 12/21/18 15:09 Dose: 40 mg Review of Systems Cardiovascular: As noted above Respiratory: denies: denies: Cough or Sputum Production Gastrointestinal: denies: Nausea, Vomiting, Diarrhea, Constipation or Abdominal Discomfort Musculoskeletal: No Symptoms Reported Endocrine: No Symptoms Reported - Objective Vital Signs: Last Vital Signs Temp Pulse Resp BP Pulse Ox 98.2 F 93 H 20 122/67 97 12/22/18 07:02 12/22/18 07:02 12/22/18 07:02 12/22/18 07:02 12/21/18 21:00 Intake & Output 12/19/18 12/20/18 12/21/18 12/22/18 23:59 23:59 23:59 23:59 Intake Total 1260 730 420 200 Output Total 300 Balance 960 730 420 200 Weight 164 lb 162 lb 9.6 oz 162 lb 6.4 oz 162 lb Constitutional: No Distress Neck: Supple Negative JVD No Bruit Cardiovascular: S1 S2 Irregularly Irregular Respiratory: Diminished Breath Sounds Bilaterally Gastrointestinal: Soft Benign Normal Bowel Sounds Ext: Edema Labs: CBC, BMP 12/21/18 06:00 12/21/18 06:00 Assessment/Plan ASSESSMENT: 1. Systolic LV dysfunction with chronic class I-II NYHA classification LV failure, clinically compensated/euvolemic 2. 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 Persistent atrial fibrillation [id number] score of 4 on A/C with DOAC's 4. Altered mental status 5. HTN 6. DM 7. Hypercholestrolemia 8. parkinson's disease PLAN: 1. Continue Lopressor 2. Continue Diovan 3. Continue A/C with Eliquis with caution and close monitoring of CBC 4. Continue ASA with caution and close monitoring of CBC 5. Continue Crestor 6. Ambulate Marly Mckeon MD
--- NOTE | 2018-12-22 10:53 | PN ---
Progress Note (short form) - Note Progress Note: Patient reports feeling better. Tremors continue as anti-Parkinsonian regimen is being developed. Agree with plans for Rehab/SNF
[2018-12-22] MEDS: VALSARTAN 40 MG TABLET (FP) PO SCH (10:54)
[2018-12-22] MEDS: APIXABAN 5 MG TABLET PO SCH ×2 (10:55→21:26)
[2018-12-22] MEDS: CARBIDOPA/LEVODOPA 25/100 TABLET (FP) PO SCH ×4 (10:55→21:26)
[2018-12-22] MEDS: RANITIDINE HCL 150 MG TABLET (FP) PO SCH (10:55)
[2018-12-22] MEDS: FOLIC ACID 1 MG TABLET (FP) PO SCH (10:55)
[2018-12-22] MEDS: METOPROLOL TARTRATE 5 MG/5 ML VIAL IVPB PRN (16:50)
--- NOTE | 2018-12-22 20:11 | PN ---
Physical Exam: SUBJECTIVE: Patient seen and examined at bedside. No acute events overnight. OBJECTIVE: Vital Signs Period Temp Pulse Resp BP Sys/Castillo Pulse Ox Last 24 Hr 97.2 F-98.2 F 86-138 20-20 122-151/45-91 96-97 GENERAL: NAD. AAOx2. Masked liked facies HEAD: Atraumatic/Normocephalic EYES: Sclera are clear, EOMI ENT: MMM no JVD appreciated NECK: No JVD appreciated, supple LUNGS: Decreased BS at bases HEART: Irregularly irregular ABDOMEN: Tender to deep palpation EXTREMITIES:Trace lower extremity edema . Laboratory Results - last 24 hr 12/20/18 12/21/18 12/22/18 05:30 21:38 06:02 POC Glucometer 124 122 Free T3 2.7 12/22/18 12/22/18 12:03 17:26 POC Glucometer 217 185 Free T3 Active Medications Generic Name Dose Route Start Last Admin Trade Name Freq PRN Reason Stop Dose Admin Apixaban 5 mg 12/18/18 10:00 12/22/18 10:55 Eliquis - PO 5 mg BID JESSICA Administration Aspirin 81 mg 12/18/18 10:00 12/19/18 09:37 Ecotrin - PO 81 mg DAILY JESSICA Administration Carbidopa/Levodopa 1 each 12/19/18 14:00 12/22/18 17:11 Sinemet 25/100 - PO 1 each QID JESSICA Administration Folic Acid 1 mg 12/18/18 10:00 12/22/18 10:55 Folic Acid - PO 1 mg DAILY JESSICA Administration Insulin Aspart 1 vial 12/18/18 07:00 12/22/18 18:23 Novolog Vial Sliding Scale - SQ 2 unit ACHS JESSICA Administration Protocol Insulin Detemir 12 units 12/21/18 07:00 12/22/18 06:25 Levemir Vial SQ 12 units DAILY@0700 JESSICA Administration Metoprolol Tartrate 5 mg 12/17/18 19:27 12/22/18 16:50 Lopressor Injection - IVPB 5 mg Q4H PRN Administration HYPERTENSION Metoprolol Tartrate 100 mg 12/19/18 14:00 12/22/18 14:35 Lopressor - PO 100 mg TID JESSICA Administration Ranitidine HCl 300 mg 12/18/18 10:00 12/22/18 10:55 Zantac - PO 300 mg DAILY JESSICA Administration Rosuvastatin Calcium 20 mg 12/18/18 22:00 12/21/18 21:39 Crestor - PO 20 mg HS JESSICA Administration Valsartan 40 mg 12/21/18 12:30 12/22/18 10:54 Diovan - PO 40 mg DAILY JESSICA Administration ASSESSMENT/PLAN: 68F w/ pmhx of HTN/HLD, CHF, Cardiac arrest w/ ROSC , STEMI with use of IABP ( October/2018) , Mitral leaflets clipping at [facility], was brought to the ED by her son (Juliana) due to altered mental status and generalized weakness. #Acute Metabolic Encephalopathy; r/o infectious vs. neurological etiology -Pt's son endorses that his mother started noticing mental status changes this past Sunday and has had generalized weakness since cardiac procedure at [facility]. -Head CT neg for any acute pathology -Dr Lassiter on board -Initial U/A neg, repeat U/A ordered -BCx/UCx both negative -Initial lactate 3.2 > 2.7, 3rd lactate 2.4; Pt was also febrile at 100.6, and had WBC 11.7, will treat empirically with IV Ceftriaxone for now. -CTAP---> No acute intraabdominal pathology -PT -Evaluated by Dr Mary Anne Monterroso 12/19/18 . Agree with Parkinson medications. Pt clinically improving with Parkinsonion medications. Dr Monterroso--> May consider abdominal binder for potential relief from chest wall pain # Diabetes Melitus 12 U SQ AM Also receives humolog 15 U before breakfast but will withhold that for now and place patient on ISS #Chest pain -Pt complaining of similar chest pain prior to Mitral Valvie clipping. -ASA 81 mg QD. pt was on Aspirin before this admission as per Records received from [facility]. -Troponin negative x 2 -Dr Cifuentes on board -EKG noted above; afib, HR 107, QTc prolonged at 491 ms -avoid QTc prolonging agents #Afib Eliquis 5 PO BID Toprol 100 TID #HTN Metoprolol Tartrate 100 mg PO TID Diovan 40 Daily #HLD Crestor 20 mg PO HS #Prophylaxis -Eliquis 5 po bid -Ranitidine 300 QD #FEN -No Fluids -BMP -sodium-controlled diet dispo Tele Visit type - Emergency Visit Emergency Visit: Yes ED Registration Date: 12/17/18 Care time: The patient presented to the Emergency Department on the above date and was hospitalized for further evaluation of their emergent condition. - New Patient This patient is new to me today: No - Critical Care Critical Care patient: No - Discharge Referral Referred to [facility] No
[2018-12-22] MEDS: ROSUVASTATIN CA 20 MG TABLET (FP) PO SCH (21:26)
--- NOTE | 2018-12-22 21:59 | PN ---
Teaching Attending Note Name of Resident: Kelvin Wolfe ATTENDING PHYSICIAN STATEMENT I saw and evaluated the patient. I reviewed the resident's note and discussed the case with the resident. I agree with the resident's findings and plan as documented. SUBJECTIVE: Patient is feeling better with no acute distress OBJECTIVE: Vital Signs Temperature 97.2 F L 12/22/18 17:00 Pulse Rate 136 H 12/22/18 17:00 Respiratory Rate 20 12/22/18 17:00 Blood Pressure 125/45 L 12/22/18 17:00 O2 Sat by Pulse Oximetry (%) 96 12/22/18 09:00 GENERAL: Awake, alert and oriented. NAD. Pleasant female. HEENT: AT/NC. EOMI. DENNY. NECK: Normal range of motion, supple, no JVD, or masses. LUNGS: CTA B/L. No wheezes noted. HEART: Irregularly irregular. No murmurs noted. ABDOMEN: Soft, NT,NR,ND, guarding or rebound tenderness. MUSCULOSKELETAL: Normal range of motion at all joints. No bony deformities or tenderness. EXTREMITIES: No peripheral edema noted b/l. pulses are positive . NEUROLOGICAL: delayed response to questions. Facial symmetry noted. CBCD WBC 6.7 K/mm3 (4.0-10.0) 12/21/18 06:00 RBC 3.38 M/mm3 (3.60-5.2) L 12/21/18 06:00 Hgb 9.5 GM/dL (10.7-15.3) L 12/21/18 06:00 Hct 28.8 % (32.4-45.2) L 12/21/18 06:00 MCV 85.4 fl (80-96) 12/21/18 06:00 MCHC 32.8 g/dl (32.0-36.0) 12/21/18 06:00 RDW 17.4 % (11.6-15.6) H 12/21/18 06:00 Plt Count 312 K/MM3 (134-434) 12/21/18 06:00 MPV 9.2 fl (7.5-11.1) 12/21/18 06:00 CMP Sodium 136 mmol/L (136-145) 12/21/18 06:00 Potassium 4.2 mmol/L (3.5-5.1) 12/21/18 06:00 Chloride 106 mmol/L (98-107) 12/21/18 06:00 Carbon Dioxide 21 mmol/L (21-32) 12/21/18 06:00 Anion Gap 10 MMOL/L (8-16) 12/21/18 06:00 BUN 9 mg/dL (7-18) 12/21/18 06:00 Creatinine 0.8 mg/dL (0.55-1.3) 12/21/18 06:00 Creat Clearance w eGFR > 60 (>60) 12/21/18 06:00 Random Glucose 121 mg/dL (74-106) H 12/21/18 06:00 Calcium 8.1 mg/dL (8.5-10.1) L 12/21/18 06:00 Total Bilirubin 1.2 mg/dL (0.2-1) H 12/17/18 08:15 AST 15 U/L (15-37) 12/17/18 08:15 ALT 22 U/L (13-61) 12/17/18 08:15 Alkaline Phosphatase 85 U/L (45-117) 12/17/18 08:15 Total Protein 7.7 g/dl (6.4-8.2) 12/17/18 08:15 Albumin 2.9 g/dl (3.4-5.0) L 12/17/18 08:15 CARDIAC ENZYMES Creatine Kinase 59 U/L (26-192) 12/16/18 20:41 Troponin I < 0.02 ng/ml (0.00-0.05) 12/19/18 01:40 Current Medications Generic Name Dose Route Start Last Admin Trade Name Everardo PRN Reason Stop Dose Admin Apixaban 5 mg 12/18/18 10:00 12/22/18 21:26 Eliquis - PO 5 mg BID JESSICA Administration Aspirin 81 mg 12/18/18 10:00 12/19/18 09:37 Ecotrin - PO 81 mg DAILY JESSICA Administration Carbidopa/Levodopa 1 each 12/19/18 14:00 12/22/18 21:26 Sinemet 25/100 - PO 1 each QID JESSICA Administration Folic Acid 1 mg 12/18/18 10:00 12/22/18 10:55 Folic Acid - PO 1 mg DAILY JESSICA Administration Insulin Aspart 1 vial 12/18/18 07:00 12/22/18 18:23 Novolog Vial Sliding Scale - SQ 2 unit ACHS JESSICA Administration Protocol Insulin Detemir 12 units 12/21/18 07:00 12/22/18 06:25 Levemir Vial SQ 12 units DAILY@0700 [facility] Administration Metoprolol Tartrate 5 mg 12/17/18 19:27 12/22/18 16:50 Lopressor Injection - IVPB 5 mg Q4H PRN Administration HYPERTENSION Metoprolol Tartrate 100 mg 12/19/18 14:00 12/22/18 21:26 Lopressor - PO 100 mg TID JESSICA Administration Ranitidine HCl 300 mg 12/18/18 10:00 12/22/18 10:55 Zantac - PO 300 mg DAILY JESSICA Administration Rosuvastatin Calcium 20 mg 12/18/18 22:00 12/22/18 21:26 Crestor - PO 20 mg HS [facility] Administration Valsartan 40 mg 12/21/18 12:30 12/22/18 10:54 Diovan - PO 40 mg DAILY JESSICA Administration Home Medications Medication Instructions Recorded Apixaban [Eliquis] 5 mg PO BID 12/17/18 Aspirin [Ecotrin] 81 mg PO DAILY 12/17/18 Famotidine [Pepcid] 40 mg PO DAILY 12/17/18 Fluphenazine HCl 5 mg PO DAILY 12/17/18 Folic Acid 1 mg PO DAILY 12/17/18 Insulin Glargine,Hum.rec.anlog 24 unit SQ HS 12/17/18 [Lantus] Insulin Lispro [Humalog] 15 unit SQ AM 12/17/18 Metoprolol Succinate [Toprol Xl] 200 mg PO BID 12/17/18 Metoprolol Tartrate 125 mg PO Q8H 12/17/18 Rosuvastatin Calcium [Crestor] 20 mg PO HS 12/17/18 Microbiology 12/17/18 09:45 Blood - Peripheral Venous Blood Culture - Final NO GROWTH AFTER 5 DAYS INCUBATION 12/16/18 20:41 Blood - Peripheral Venous Blood Culture - Final NO GROWTH AFTER 5 DAYS INCUBATION 12/19/18 12:00 Urine - Urine Clean Catch Urine Culture - Final 12/16/18 20:22 Urine - Urine Clean Catch Urine Culture - Final Contaminated: Please Repeat ASSESSMENT AND PLAN: Patient is a 68yo female with h/o MV clip, HTN, DM, HLD, systolic CHF, recent cath at [facility] ( unknown results or procedure), she presented with non specific complaints , diarrhea, cp , and developed fever here. # Acute change of mental status improving, as per Dr. Lassiter patient is improving on Sinemet ,will increase the dose to 4x per time. as per Dr. pardo neurosx; does not believe that patient has NPH. as per neurology Dr. Lassiter, patient has most likely Parkinsonism. # A fib/flutter : rate is controlled on Lopressor , continue with 100mg tid , will continue to monitor the HR.on Eliquis will continue 5mg po bid. #MR post Sandy-Clip : patient was started on aspirin at [facility] will continue # Hx of systolic heart failure: echo with mildly reduced EF. hold lasix, s/p IVF # Hypotension, is now normotensive . will continue with Lopressor 100mg tid for rate control as well. will continue to monitor. # S/p fever : unclear source: work up is negative, Echo which showed no vegetations. # Acute dehydration s/p IVF : due to diarrhea, and maybe poor po intake. hold lasix # Diarrhea: follow c -diff and stool cx if it recurs. # T2DM : on levemir continue with 12 units hs, since the sugar was low in am , cont SSI # T11 Fx: Neurosx consult appreciated Dr Pardo. Records were requested form [facility] are in the chart. DVT Px: Eliquis possible rehab, in am
[2018-12-23] MEDS: INSULIN (LEVEMIR) 100 UNITS/ML UNITS SQ SCH (06:37)
[2018-12-23] MEDS: METOPROLOL TARTRATE 50 MG TABLET (FP) PO SCH ×3 (06:37→21:57)
[2018-12-23] MEDS: INSULIN SLIDING SCALE (NOVOLOG) 1 VIAL SQ SCH ×4 (06:37→21:58)
[2018-12-23 06:59] LABS: HEMATOCRIT 27.4 % (32.4-45.2); HEMOGLOBIN 9.2 GM/dL (10.7-15.3); MCH 28.6 pg (25.7-33.7); MCHC 33.7 g/dl (32.0-36.0); MEAN CELL VOLUME 84.8 fl (80-96); MEAN PLT VOLUME 8.5 fl (7.5-11.1); PLATELET COUNT 332 K/MM3 (134-434); RBC 3.23 M/mm3 (3.60-5.2); RDW 17.8 % (11.6-15.6); WHITE BLOOD COUNT 7.9 K/mm3 (4.0-10.0)
[2018-12-23 07:22] LABS: ANION GAP 8 MMOL/L (8-16); BLOOD UREA NITROGEN 11 mg/dL (7-18); CALCIUM 8.6 mg/dL (8.5-10.1); CHLORIDE 104 mmol/L (98-107); CO2 27 mmol/L (21-32); CREATININE 0.8 mg/dL (0.55-1.3); GLUCOSE,RANDOM 102 mg/dL (74-106); MAGNESIUM 1.8 mg/dL (1.8-2.4); PHOSPHOROUS 3.7 mg/dL (2.5-4.9); POTASSIUM 4.1 mmol/L (3.5-5.1); SODIUM 139 mmol/L (136-145)
[2018-12-23] MEDS: RANITIDINE HCL 150 MG TABLET (FP) PO SCH (10:35)
[2018-12-23] MEDS: VALSARTAN 40 MG TABLET (FP) PO SCH (10:35)
[2018-12-23] MEDS: FOLIC ACID 1 MG TABLET (FP) PO SCH (10:36)
[2018-12-23] MEDS: APIXABAN 5 MG TABLET PO SCH ×2 (10:36→21:57)
[2018-12-23] MEDS: CARBIDOPA/LEVODOPA 25/100 TABLET (FP) PO SCH ×4 (10:36→21:57)
[2018-12-23] MEDS ORDERED: FUROSEMIDE 40 MG/4 ML INJECTABLE VIAL IVPUSH ONE (11:40)
--- NOTE | 2018-12-23 13:19 | PN ---
Progress Note, Physician History of Present Illness: 68 yo Female (shanna Arellano) with PMH HTN, HLD, systoic and diastolic CHF ( borderline reduced LVEF on 2019 ECHO), Recent cath 3 weeks ago at [facility]?, Atrial fibrillation, very poor historian, comes from home stating her son told her to come for evaluation. She is confused and unable to adequately explain why she is here. Going through thorough review of systems she complains of neck weakness and pain, chest pain similar to her pain 3 weeks ago prior to her procedure, abdominal pain, and some confusion. She denies other symptoms. Of note she is unable to state how she got here but is able to confirm ambulence when prompted. She is oriented to time place and self, however is unable to explain exactly why she is here or what her current concerns are. - Current Medication List Current Medications: Active Medications Apixaban (Eliquis -) 5 mg PO BID [facility] Last Admin: 12/23/18 10:36 Dose: 5 mg Aspirin (Ecotrin -) 81 mg PO DAILY [facility] Last Admin: 12/19/18 09:37 Dose: 81 mg Carbidopa/Levodopa (Sinemet 25/100 -) 1 each PO QID [facility] Last Admin: 12/23/18 10:36 Dose: 1 each Folic Acid (Folic Acid -) 1 mg PO DAILY [facility] Last Admin: 12/23/18 10:36 Dose: 1 mg Insulin Aspart (Novolog Vial Sliding Scale -) 1 vial SQ ACHS [facility]; Protocol Last Admin: 12/23/18 12:16 Dose: 4 unit Insulin Detemir (Levemir Vial) 12 units SQ DAILY@0700 [facility] Last Admin: 12/23/18 06:37 Dose: 12 units Metoprolol Tartrate (Lopressor Injection -) 5 mg IVPB Q4H PRN PRN Reason: HYPERTENSION Last Admin: 12/22/18 16:50 Dose: 5 mg Metoprolol Tartrate (Lopressor -) 100 mg PO TID [facility] Last Admin: 12/23/18 06:37 Dose: 100 mg Ranitidine HCl (Zantac -) 300 mg PO DAILY [facility] Last Admin: 12/23/18 10:35 Dose: 300 mg Rosuvastatin Calcium (Crestor -) 20 mg PO HS [facility] Last Admin: 12/22/18 21:26 Dose: 20 mg Valsartan (Diovan -) 40 mg PO DAILY [facility] Last Admin: 12/23/18 10:35 Dose: 40 mg - Objective Vital Signs: Vital Signs Temperature 97.8 F 12/23/18 10:00 Pulse Rate 98 H 12/23/18 10:00 Respiratory Rate 20 12/23/18 10:00 Blood Pressure 111/65 12/23/18 10:00 O2 Sat by Pulse Oximetry (%) 96 12/22/18 21:00 Eyes: Yes: WNL, Conjunctiva Clear, EOM Intact HENT: Yes: WNL, Atraumatic, Normocephalic Neck: Yes: WNL, Supple, Trachea Midline Cardiovascular: Yes: Pulse Irregular, S1, S2 Respiratory: Yes: WNL, Regular, CTA Bilaterally Gastrointestinal: Yes: WNL, Normal Bowel Sounds Genitourinary: Yes: WNL Musculoskeletal: Yes: WNL Extremities: Yes: WNL Edema: No Integumentary: Yes: WNL Neurological: Yes: WNL, Alert, Oriented ...Motor Strength: WNL Psychiatric: Yes: WNL Labs: CBC, BMP 12/23/18 05:30 12/23/18 05:30 INR, PTT INR 1.49 (0.83-1.09) H 12/17/18 08:15 Assessment/Plan ASSESSMENT: 1. Systolic LV dysfunction with chronic class I-II NYHA classification LV failure, clinically compensated/euvolemic 2. 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 Persistent atrial fibrillation [id number] score of 4 on A/C with DOAC's 4. Altered mental status 5. HTN 6. DM 7. Hypercholestrolemia 8. parkinson's disease PLAN: 1. Continue Lopressor 2. Continue Diovan 3. Continue A/C with Eliquis with caution and close monitoring of CBC 4. Continue ASA with caution and close monitoring of CBC 5. Continue Crestor 6. Ambulate d/c telemetry
--- NOTE | 2018-12-23 15:19 | PN ---
Progress Note (short form) - Note Progress Note: Patient unchanged. Stable for discharge to SNF/Rehab from Neurosurgery standpoint
--- NOTE | 2018-12-23 15:49 | PN ---
Teaching Attending Note Name of Resident: Kelvin Wolfe ATTENDING PHYSICIAN STATEMENT I saw and evaluated the patient. I reviewed the resident's note and discussed the case with the resident. I agree with the resident's findings and plan as documented. SUBJECTIVE: Patient is feeling short of breath, with mild labored breathing. OBJECTIVE: Vital Signs Temperature 97.8 F 12/23/18 10:00 Pulse Rate 98 H 12/23/18 10:00 Respiratory Rate 21 H 12/23/18 14:00 Blood Pressure 112/62 12/23/18 14:00 O2 Sat by Pulse Oximetry (%) 95 12/23/18 09:00 GENERAL: Awake, alert and oriented. NAD. Pleasant female. HEENT: AT/NC. EOMI. DENNY. NECK: Normal range of motion, supple, no JVD, or masses. LUNGS: decreased BS B/L. NO wheeze, no rhonchi or rales. HEART: Irregularly irregular. No murmurs noted. ABDOMEN: Soft, NT,NR,ND, guarding or rebound tenderness. MUSCULOSKELETAL: Normal range of motion at all joints. No bony deformities or tenderness. EXTREMITIES: No peripheral edema noted b/l. pulses are positive . NEUROLOGICAL: delayed response to questions. Facial symmetry noted.CMP Sodium 139 mmol/L (136-145) 12/23/18 05:30 Potassium 4.1 mmol/L (3.5-5.1) 12/23/18 05:30 Chloride 104 mmol/L (98-107) 12/23/18 05:30 Carbon Dioxide 27 mmol/L (21-32) 12/23/18 05:30 Anion Gap 8 MMOL/L (8-16) 12/23/18 05:30 BUN 11 mg/dL (7-18) 12/23/18 05:30 Creatinine 0.8 mg/dL (0.55-1.3) 12/23/18 05:30 Creat Clearance w eGFR > 60 (>60) 12/23/18 05:30 POC Glucometer 209 UNITS (80-120) 12/23/18 11:47 Random Glucose 102 mg/dL (74-106) 12/23/18 05:30 Hemoglobin A1c % 7.7 % (4.2-6.3) H 12/17/18 08:15 Lactic Acid 1.2 mmol/L (0.4-2.0) 12/18/18 08:10 Calcium 8.6 mg/dL (8.5-10.1) 12/23/18 05:30 Phosphorus 3.7 mg/dL (2.5-4.9) 12/23/18 05:30 Magnesium 1.8 mg/dL (1.8-2.4) 12/23/18 05:30 Total Bilirubin 1.2 mg/dL (0.2-1) H 12/17/18 08:15 AST 15 U/L (15-37) 12/17/18 08:15 ALT 22 U/L (13-61) 12/17/18 08:15 Alkaline Phosphatase 85 U/L (45-117) 12/17/18 08:15 Creatine Kinase 59 U/L (26-192) 12/16/18 20:41 CK-MB (CK-2) < 1.0 ng/mL (0.5-3.6) 12/16/18 20:41 Troponin I < 0.02 ng/ml (0.00-0.05) 12/19/18 01:40 Total Protein 7.7 g/dl (6.4-8.2) 12/17/18 08:15 Albumin 2.9 g/dl (3.4-5.0) L 12/17/18 08:15 Triglycerides 123 mg/dL (0-150) 12/17/18 08:15 Cholesterol 110 mg/dL (50-200) 12/17/18 08:15 Total LDL Cholesterol 54 mg/dL (5-100) 12/17/18 08:15 HDL Cholesterol 45 mg/dL (40-60) 12/17/18 08:15 Lipase 86 U/L (73-393) 12/17/18 08:15 Serum Folate 33 ng/mL (3.1-17.5) H 12/20/18 05:30 TSH 3.89 uIU/ml (0.358-3.74) H 12/20/18 05:30 Free T4 1.33 ng/dl (0.76-1.46) 12/20/18 05:30 Free T3 2.7 pg/ml (2.0-4.4) 12/20/18 05:30 Current Medications Generic Name Dose Route Start Last Admin Trade Name Freq PRN Reason Stop Dose Admin Apixaban 5 mg 12/18/18 10:00 12/23/18 10:36 Eliquis - PO 5 mg BID JESSICA Administration Aspirin 81 mg 12/18/18 10:00 12/19/18 09:37 Ecotrin - PO 81 mg DAILY JESSICA Administration Carbidopa/Levodopa 1 each 12/19/18 14:00 12/23/18 14:55 Sinemet 25/100 - PO 1 each QID JESSICA Administration Folic Acid 1 mg 12/18/18 10:00 12/23/18 10:36 Folic Acid - PO 1 mg DAILY JESSICA Administration Insulin Aspart 1 vial 12/18/18 07:00 12/23/18 12:16 Novolog Vial Sliding Scale - SQ 4 unit ACHS [facility] Administration Protocol Insulin Detemir 12 units 12/21/18 07:00 12/23/18 06:37 Levemir Vial SQ 12 units DAILY@0700 JESSICA Administration Metoprolol Tartrate 5 mg 12/17/18 19:27 12/22/18 16:50 Lopressor Injection - IVPB 5 mg Q4H PRN Administration HYPERTENSION Metoprolol Tartrate 100 mg 12/19/18 14:00 12/23/18 14:55 Lopressor - PO 100 mg TID JESSICA Administration Ranitidine HCl 300 mg 12/18/18 10:00 12/23/18 10:35 Zantac - PO 300 mg DAILY JESSICA Administration Rosuvastatin Calcium 20 mg 12/18/18 22:00 12/22/18 21:26 Crestor - PO 20 mg HS [facility] Administration Valsartan 40 mg 12/21/18 12:30 12/23/18 10:35 Diovan - PO 40 mg DAILY JESSICA Administration Home Medications Medication Instructions Recorded Apixaban [Eliquis] 5 mg PO BID 12/17/18 Aspirin [Ecotrin] 81 mg PO DAILY 12/17/18 Famotidine [Pepcid] 40 mg PO DAILY 12/17/18 Fluphenazine HCl 5 mg PO DAILY 12/17/18 Folic Acid 1 mg PO DAILY 12/17/18 Insulin Glargine,Hum.rec.anlog 24 unit SQ HS 12/17/18 [Lantus] Insulin Lispro [Humalog] 15 unit SQ AM 12/17/18 Metoprolol Succinate [Toprol Xl] 200 mg PO BID 12/17/18 Metoprolol Tartrate 125 mg PO Q8H 12/17/18 Rosuvastatin Calcium [Crestor] 20 mg PO HS 12/17/18 CXR: Mild congestion ASSESSMENT AND PLAN: Patient is a 68yo female with h/o MV clip, HTN, DM, HLD, systolic CHF, recent cath at [facility] ( unknown results or procedure), she presented with non specific complaints , diarrhea, cp , and developed fever here. # Acute Shortness of breath, CXR mild congestion, given a dose a 40mg IV lasix, patient is comfortable now with no acute distress. as per son patient is on lasix 40mg po at home. # Acute change of mental status improving, as per Dr. Lassiter patient is improving on Sinemet, dose increased to 4x per time. as per Dr. Sawyer neurosx; does not believe that patient has NPH. as per neurology Dr. Lassiter, patient has most likely Parkinsonism. # A fib/flutter : rate is controlled on Lopressor , continue with 100mg tid , will continue to monitor the HR.on Eliquis will continue 5mg po bid. #MR post Sandy-Clip : patient was started on aspirin at [facility] will continue # Hx of systolic heart failure: echo with mildly reduced EF. hold lasix, s/p IVF # Hypotension, is now normotensive . will continue with Lopressor 100mg tid for rate control as well. will continue to monitor. # S/p fever : unclear source: work up is negative, Echo which showed no vegetations. # Acute dehydration s/p IVF : due to diarrhea, and maybe poor po intake. hold lasix # Diarrhea: follow c -diff and stool cx if it recurs. # T2DM : on levemir continue with 12 units hs, since the sugar was low in am , cont SSI # T11 Fx: Neurosx consult appreciated Dr Sawyer. Records were requested form [facility] are in the chart. DVT Px: Eliquis possible rehab, in am once insurance authorization in place.
--- NOTE | 2018-12-23 18:55 | PN ---
Physical Exam: SUBJECTIVE: Patient seen and examined at bedside. No acute events overnight. Pt appears to have labored breathing this am. Son at bedside. OBJECTIVE: Vital Signs Period Temp Pulse Resp BP Sys/Castillo Pulse Ox Last 24 Hr 97.3 F-98 F 77-98 20-21 111-145/62-74 95-96 GENERAL: NAD. AAOx2. Masked liked facies HEAD: NC/AT EYES: Sclera are clear, EOMI ENT: MMM no JVD appreciated NECK: No JVD appreciated, supple LUNGS: Decreased BS at bases HEART: Irregularly irregular ABDOMEN: NDNT No HSM EXTREMITIES: Trace lower extremity edema . Laboratory Results - last 24 hr 12/22/18 12/23/18 12/23/18 22:03 05:30 05:30 WBC 7.9 RBC 3.23 L Hgb 9.2 L Hct 27.4 L MCV 84.8 MCH 28.6 MCHC 33.7 RDW 17.8 H Plt Count 332 MPV 8.5 Sodium 139 Potassium 4.1 Chloride 104 Carbon Dioxide 27 Anion Gap 8 BUN 11 Creatinine 0.8 Creat Clearance w eGFR > 60 POC Glucometer 141 Random Glucose 102 Calcium 8.6 Phosphorus 3.7 Magnesium 1.8 12/23/18 12/23/18 12/23/18 05:37 11:47 17:16 WBC RBC Hgb Hct MCV MCH MCHC RDW Plt Count MPV Sodium Potassium Chloride Carbon Dioxide Anion Gap BUN Creatinine Creat Clearance w eGFR POC Glucometer 96 209 108 Random Glucose Calcium Phosphorus Magnesium Active Medications Generic Name Dose Route Start Last Admin Trade Name Freq PRN Reason Stop Dose Admin Apixaban 5 mg 12/18/18 10:00 12/23/18 10:36 Eliquis - PO 5 mg BID JESSICA Administration Aspirin 81 mg 12/18/18 10:00 12/19/18 09:37 Ecotrin - PO 81 mg DAILY JESSICA Administration Carbidopa/Levodopa 1 each 12/19/18 14:00 12/23/18 18:31 Sinemet 25/100 - PO 1 each QID JESSICA Administration Folic Acid 1 mg 12/18/18 10:00 12/23/18 10:36 Folic Acid - PO 1 mg DAILY JESSICA Administration Insulin Aspart 1 vial 12/18/18 07:00 12/23/18 18:14 Novolog Vial Sliding Scale - SQ Not Given ACHS ON LICENSE OF [facility] Protocol Insulin Detemir 12 units 12/21/18 07:00 12/23/18 06:37 Levemir Vial SQ 12 units DAILY@0700 JESSICA Administration Metoprolol Tartrate 5 mg 12/17/18 19:27 12/22/18 16:50 Lopressor Injection - IVPB 5 mg Q4H PRN Administration HYPERTENSION Metoprolol Tartrate 100 mg 12/19/18 14:00 12/23/18 14:55 Lopressor - PO 100 mg TID JESSICA Administration Ranitidine HCl 300 mg 12/18/18 10:00 12/23/18 10:35 Zantac - PO 300 mg DAILY JESSICA Administration Rosuvastatin Calcium 20 mg 12/18/18 22:00 12/22/18 21:26 Crestor - PO 20 mg HS JESSICA Administration Valsartan 40 mg 12/21/18 12:30 12/23/18 10:35 Diovan - PO 40 mg DAILY JESSICA Administration ASSESSMENT/PLAN: 68F w/ pmhx of HTN/HLD, CHF, Cardiac arrest w/ ROSC , STEMI with use of IABP ( October/2018) , Mitral leaflets clipping at [facility], was brought to the ED by her son (Juliana) due to altered mental status and generalized weakness. #Acute Metabolic Encephalopathy; r/o infectious vs. neurological etiology -Pt's son endorses that his mother started noticing mental status changes this past Sunday and has had generalized weakness since cardiac procedure at [facility]. -Head CT neg for any acute pathology -Dr Lassiter on board -Initial U/A neg, repeat U/A ordered -BCx/UCx both negative -Initial lactate 3.2 > 2.7, 3rd lactate 2.4; Pt was also febrile at 100.6, and had WBC 11.7, will treat empirically with IV Ceftriaxone for now. -CTAP---> No acute intraabdominal pathology -PT -Evaluated by Dr Mary Anne Monterroso 12/19/18 . Agree with Parkinson medications. Pt clinically improving with Parkinsonion medications. Dr Monterroso--> May consider abdominal binder for potential relief from chest wall pain # Diabetes Melitus 12 U SQ AM Also receives humolog 15 U before breakfast but will withhold that for now and place patient on ISS #Chest pain -Pt complaining of similar chest pain prior to Mitral Valvie clipping. -ASA 81 mg QD. pt was on Aspirin before this admission as per Records received from [facility]. -Troponin negative x 2 -Dr Cifuentes on board -EKG noted above; afib, HR 107, QTc prolonged at 491 ms -avoid QTc prolonging agents -Lasix 20 IV given this am as pt appeared volume overloaded. #Afib Eliquis 5 PO BID Toprol 100 TID #HTN Metoprolol Tartrate 100 mg PO TID Diovan 40 Daily #HLD Crestor 20 mg PO HS #Prophylaxis -Eliquis 5 po bid -Ranitidine 300 QD #FEN -No Fluids -BMP -sodium-controlled [facility] - Emergency Visit Emergency Visit: Yes ED Registration Date: 12/17/18 Care time: The patient presented to the Emergency Department on the above date and was hospitalized for further evaluation of their emergent condition. - New Patient This patient is new to me today: No - Critical Care Critical Care patient: No - Discharge Referral Referred to [facility] Med P.C.: No
[2018-12-23] MEDS: ROSUVASTATIN CA 20 MG TABLET (FP) PO SCH (21:57)
[2018-12-24 03:05] VITALS: TEMP 97.5
[2018-12-24] MEDS: METOPROLOL TARTRATE 50 MG TABLET (FP) PO SCH (06:39)
[2018-12-24] MEDS: INSULIN (LEVEMIR) 100 UNITS/ML UNITS SQ SCH (06:40)
[2018-12-24] MEDS: INSULIN SLIDING SCALE (NOVOLOG) 1 VIAL SQ SCH ×2 (06:40→13:42)
[2018-12-24 07:12] LABS: HEMATOCRIT 28.8 % (32.4-45.2); HEMOGLOBIN 9.6 GM/dL (10.7-15.3); MCH 28.2 pg (25.7-33.7); MCHC 33.3 g/dl (32.0-36.0); MEAN CELL VOLUME 84.7 fl (80-96); MEAN PLT VOLUME 8.4 fl (7.5-11.1); PLATELET COUNT 345 K/MM3 (134-434); RDW 17.8 % (11.6-15.6); WHITE BLOOD COUNT 7.8 K/mm3 (4.0-10.0)
[2018-12-24 07:15] LABS: ANION GAP 7 MMOL/L (8-16); BLOOD UREA NITROGEN 10 mg/dL (7-18); CALCIUM 8.5 mg/dL (8.5-10.1); CHLORIDE 102 mmol/L (98-107); CO2 29 mmol/L (21-32); GLUCOSE,RANDOM 106 mg/dL (74-106); MAGNESIUM 1.8 mg/dL (1.8-2.4); PHOSPHOROUS 4.1 mg/dL (2.5-4.9); POTASSIUM 3.7 mmol/L (3.5-5.1); SODIUM 137 mmol/L (136-145)
--- NOTE | 2018-12-24 09:05 | PN ---
Teaching Attending Note Name of Resident: Kelvin Wolfe ATTENDING PHYSICIAN STATEMENT I saw and evaluated the patient. I reviewed the resident's note and discussed the case with the resident. I agree with the resident's findings and plan as documented. SUBJECTIVE: Patient is feeling better with no acute distress. AA0x3 OBJECTIVE: Vital Signs Temperature 97.5 F L 12/24/18 06:00 Pulse Rate 73 12/24/18 06:00 Respiratory Rate 20 12/24/18 06:00 Blood Pressure 139/77 12/24/18 06:00 O2 Sat by Pulse Oximetry (%) 96 12/23/18 21:00 GENERAL: Awake, alert and oriented. NAD. Pleasant female. HEENT: AT/NC. EOMI. DENNY. NECK: Normal range of motion, supple, no JVD, or masses. LUNGS: decreased BS B/L. NO wheeze, no rhonchi or rales. HEART: Irregularly irregular. No murmurs noted. ABDOMEN: Soft, NT,NR,ND, guarding or rebound tenderness. MUSCULOSKELETAL: Normal range of motion at all joints. No bony deformities or tenderness. EXTREMITIES: No peripheral edema noted b/l. pulses are positive . NEUROLOGICAL: delayed response to questions. Facial symmetry noted CBCD WBC 7.8 K/mm3 (4.0-10.0) 12/24/18 05:30 RBC 3.40 M/mm3 (3.60-5.2) L 12/24/18 05:30 Hgb 9.6 GM/dL (10.7-15.3) L 12/24/18 05:30 Hct 28.8 % (32.4-45.2) L 12/24/18 05:30 MCV 84.7 fl (80-96) 12/24/18 05:30 MCHC 33.3 g/dl (32.0-36.0) 12/24/18 05:30 RDW 17.8 % (11.6-15.6) H 12/24/18 05:30 Plt Count 345 K/MM3 (134-434) 12/24/18 05:30 MPV 8.4 fl (7.5-11.1) 12/24/18 05:30 CMP Sodium 137 mmol/L (136-145) 12/24/18 05:30 Potassium 3.7 mmol/L (3.5-5.1) 12/24/18 05:30 Chloride 102 mmol/L (98-107) 12/24/18 05:30 Carbon Dioxide 29 mmol/L (21-32) 12/24/18 05:30 Anion Gap 7 MMOL/L (8-16) L 12/24/18 05:30 BUN 10 mg/dL (7-18) 12/24/18 05:30 Creatinine 1.0 mg/dL (0.55-1.3) 12/24/18 05:30 Creat Clearance w eGFR 55.14 (>60) 12/24/18 05:30 Random Glucose 106 mg/dL (74-106) 12/24/18 05:30 Calcium 8.5 mg/dL (8.5-10.1) 12/24/18 05:30 Total Bilirubin 1.2 mg/dL (0.2-1) H 12/17/18 08:15 AST 15 U/L (15-37) 12/17/18 08:15 ALT 22 U/L (13-61) 12/17/18 08:15 Alkaline Phosphatase 85 U/L (45-117) 12/17/18 08:15 Total Protein 7.7 g/dl (6.4-8.2) 12/17/18 08:15 Albumin 2.9 g/dl (3.4-5.0) L 12/17/18 08:15 CARDIAC ENZYMES Creatine Kinase 59 U/L (26-192) 12/16/18 20:41 Troponin I < 0.02 ng/ml (0.00-0.05) 12/19/18 01:40 Current Medications Generic Name Dose Route Start Last Admin Trade Name Theoq PRN Reason Stop Dose Admin Apixaban 5 mg 12/18/18 10:00 12/23/18 21:57 Eliquis - PO 5 mg BID JESSICA Administration Aspirin 81 mg 12/18/18 10:00 12/19/18 09:37 Ecotrin - PO 81 mg DAILY JESSICA Administration Carbidopa/Levodopa 1 each 12/19/18 14:00 12/23/18 21:57 Sinemet 25/100 - PO 1 each QID JESSICA Administration Folic Acid 1 mg 12/18/18 10:00 12/23/18 10:36 Folic Acid - PO 1 mg DAILY JESSICA Administration Insulin Aspart 1 vial 12/18/18 07:00 12/24/18 06:40 Novolog Vial Sliding Scale - SQ Not Given ACHS [facility] Protocol Insulin Detemir 12 units 12/21/18 07:00 12/24/18 06:40 Levemir Vial SQ 12 units DAILY@0700 JESSICA Administration Metoprolol Tartrate 5 mg 12/17/18 19:27 12/22/18 16:50 Lopressor Injection - IVPB 5 mg Q4H PRN Administration HYPERTENSION Metoprolol Tartrate 100 mg 12/19/18 14:00 12/24/18 06:39 Lopressor - PO 100 mg TID JESSICA Administration Ranitidine HCl 300 mg 12/18/18 10:00 12/23/18 10:35 Zantac - PO 300 mg DAILY JESSICA Administration Rosuvastatin Calcium 20 mg 12/18/18 22:00 12/23/18 21:57 Crestor - PO 20 mg HS JESSICA Administration Valsartan 40 mg 12/21/18 12:30 12/23/18 10:35 Diovan - PO 40 mg DAILY JESSICA Administration Home Medications Medication Instructions Recorded Apixaban [Eliquis] 5 mg PO BID 12/17/18 Aspirin [Ecotrin] 81 mg PO DAILY 12/17/18 Famotidine [Pepcid] 40 mg PO DAILY 12/17/18 Fluphenazine HCl 5 mg PO DAILY 12/17/18 Folic Acid 1 mg PO DAILY 12/17/18 Insulin Glargine,Hum.rec.anlog 24 unit SQ HS 12/17/18 [Lantus] Insulin Lispro [Humalog] 15 unit SQ AM 12/17/18 Metoprolol Succinate [Toprol Xl] 200 mg PO BID 12/17/18 Metoprolol Tartrate 125 mg PO Q8H 12/17/18 Rosuvastatin Calcium [Crestor] 20 mg PO HS 12/17/18 CXR: Mild congestion ASSESSMENT AND PLAN: Patient is a 68yo female with h/o MV clip, HTN, DM, HLD, systolic CHF, recent cath at [facility] ( unknown results or procedure), she presented with non specific complaints , diarrhea, cp , and developed fever here. # Acute Shortness of breath, CXR mild congestion, given a dose a 40mg IV lasix, patient is comfortable now with no acute distress. as per son patient is on lasix 40mg po at home. will continue with 40mg lasix daily # Acute change of mental status improving, as per Dr. Lassiter patient is improving on Sinemet, dose increased to 4x per time. as per Dr. Sawyer neurosx; does not believe that patient has NPH. as per neurology Dr. Lassiter, patient has most likely Parkinsonism. # A fib/flutter : rate is controlled on Lopressor , continue with 100mg tid , will continue to monitor the HR.on Eliquis will continue 5mg po bid. #MR post Sandy-Clip : patient was started on aspirin at [facility] will continue # Hx of systolic heart failure: echo with mildly reduced EF. stable now, # Hypotension, is now normotensive . will continue with Lopressor 100mg tid for rate control as well. will continue to monitor. # S/p fever : unclear source: work up is negative, Echo which showed no vegetations. # Acute dehydration s/p IVF : improved # Diarrhea: follow c -diff and stool cx if it recurs. # T2DM : on levemir continue with 12 units hs, since the sugar was low in am , cont SSI # T11 Fx: Neurosx consult appreciated Dr Sawyer. Records were requested form [facility] are in the chart. DVT Px: Eliquis discharge to rehab.
[2018-12-24] MEDS: CARBIDOPA/LEVODOPA 25/100 TABLET (FP) PO SCH (11:49)
[2018-12-24] MEDS: FOLIC ACID 1 MG TABLET (FP) PO SCH (11:50)
[2018-12-24] MEDS: APIXABAN 5 MG TABLET PO SCH (11:50)
[2018-12-24] MEDS: RANITIDINE HCL 150 MG TABLET (FP) PO SCH (11:50)
[2018-12-24] MEDS: VALSARTAN 40 MG TABLET (FP) PO SCH (11:50)
--- NOTE | 2018-12-24 13:22 | DS ---
Physical Exam: SUBJECTIVE: Patient seen and examined at bedside. No acute evens overnight. OBJECTIVE: Vital Signs Period Temp Pulse Resp BP Sys/Castillo Pulse Ox Last 24 Hr 97.5 F-98.2 F 73-86 16-21 112-139/62-77 96 PHYSICAL EXAM GENERAL: NAD. AAOx2. Masked liked facies HEAD: NC/AT EYES: Sclera are clear, EOMI ENT: MMM no JVD appreciated NECK: No JVD appreciated, supple LUNGS: Decreased BS at bases HEART: Irregularly irregular ABDOMEN: NDNT No HSM EXTREMITIES: Trace lower extremity edema LABS Laboratory Results - last 24 hr 12/23/18 12/23/18 12/24/18 17:16 21:56 05:30 WBC 7.8 RBC 3.40 L Hgb 9.6 L Hct 28.8 L MCV 84.7 MCH 28.2 MCHC 33.3 RDW 17.8 H Plt Count 345 MPV 8.4 Sodium Potassium Chloride Carbon Dioxide Anion Gap BUN Creatinine Creat Clearance w eGFR POC Glucometer 108 142 Random Glucose Calcium Phosphorus Magnesium 12/24/18 12/24/18 12/24/18 05:30 06:37 12:25 WBC RBC Hgb Hct MCV MCH MCHC RDW Plt Count MPV Sodium 137 Potassium 3.7 Chloride 102 Carbon Dioxide 29 Anion Gap 7 L BUN 10 Creatinine 1.0 Creat Clearance w eGFR 55.14 POC Glucometer 124 161 Random Glucose 106 Calcium 8.5 Phosphorus 4.1 Magnesium 1.8 HOSPITAL COURSE: Date of Admission:12/17/18 68F w/ a pmhx of HTN/HLD, CHF, Cardiac arrest w/ ROSC , STEMI with use of IABP ( October/2018) , Mitral leaflets clipping at [facility], was brought to [facility] by her son (Juliana) due to altered mental status and generalized weakness. Pt underwent imaging if her brain with a CT. CT did not reveal any acute bleeds or pathology. Please see report for further details. Blood and urine cultures were negative. Troponins were negative x 2. initial lactate was 3.2 but trended down. Pt's lactate was pt was evaluated by neurosurgery and Neurology. Pt was thought to have possible NPH but this was later ruled out after further imaging. Neurology suspected pt to have Parkinson' s disease based on her clinical presentation (resting tremors mask like facies) and pt was started on Sinemet 25/100 QID. Pt's home Lopressor was changed to 100 mg TID from 200 BID. Pt appeared to be short of breath during her stay and a chest xray was ordered. Chest xray revealed progressive congestive changes and pt was given a one time does of Lasix 20 I.V. Pt's Levemir was changed to 12 U SQ in the AM from 24 U SQ HS. Pt was transferred to [facility] term rehab. Date of Discharge: 12/24/18 Minutes to complete discharge: 35 Discharge Summary Reason For Visit: SUBCORTICAL DEMENTIA [place] NEED FOR Current Active Problems Anemia (Acute) Atrial fibrillation with rapid ventricular response (Acute) Confusion (Acute) Elevated lactic acid level (Acute) FH: mitral valve repair (Acute) Hypomagnesemia (Acute) Hypothyroid (Acute) Need for assistance due to unsteady gait (Acute) Parkinsonian tremor (Acute) Subcortical dementia (Acute) Systolic CHF (Acute) Condition: Improved - Instructions Diet, Activity, Other Instructions: You presented to the hospital for altered mental status. Please take the following new medications below: Sinemet 25/100 FOUR times per day We have decreased your Long acting insulin to once a day insulin down to 12 UNITS in the morning. Before you were taking this as 24 Units at night. We discontinued your Fluphenazine. Please stop taking this medication. Discontinue metformin and pioglitazone for now, since your blood sugar is contored for now, repeat hemoglobin A1c in 2 months period. We have changed your Lopressor (Metoprolol Tartrate) medication to 100 MG THREE times per day. Please continue all of your home medications as prescribed. Please follow up with your primary care doctor in 1 week, Dr Cho Please follow up with Dr Lassiter, Neurologist, in 1 week. Please follow up with your Or Director in 1 week. Your son has indicated that you follow a electric refrigerator servicer at the same location as your primary care doctor. Please return to the Emergency department of you begin to experience chest pain , shortness of breath, changes in mental status, nausea/vomiting, or fevers. Disposition: [facility] - Home Medications Comprehensive Discharge Medication List: Ambulatory Orders Apixaban [Eliquis] 5 mg PO BID 12/17/18 Aspirin [Ecotrin] 81 mg PO DAILY 12/17/18 Famotidine [Pepcid] 40 mg PO DAILY 12/17/18 Folic Acid 1 mg PO DAILY 12/17/18 Rosuvastatin Calcium [Crestor] 20 mg PO HS 12/17/18 Carbidopa/Levodopa 25/100 [Sinemet 25/100 -] 1 each PO QID tablet 12/24/18 Insulin (Levemir) [Levemir Vial] 12 units SQ DAILY@0700 units 12/24/18 Insulin Sliding Scale [Novolog Vial Sliding Scale -] 1 vial SQ ACHS units 12/24 Metoprolol Tartrate [Lopressor -] 100 mg PO TID tablet 12/24/18 Valsartan [Diovan] 40 mg PO DAILY tablet 12/24/18 This patient is new to me today: No Emergency Visit: Yes ED Registration Date: 12/17/18 Care time: The patient presented to the Emergency Department on the above date and was hospitalized for further evaluation of their emergent condition. Critical Care patient: No - Discharge Referral Referred to [facility] Med P.C.: No
[2018-12-24 14:26] VITALS: BP 132/84; PULSE 84
--- NOTE | 2018-12-24 16:26 | PN ---
Progress Note (short form) - Note Progress Note: Stable Ready for discharge
== END 2018-12-24 14:29 | DRG 56 ==
LOC: JER 18:00 → JERBED 12-17 02:55 → J7W 12-17 05:18 → J4W 12-17 20:47
PROVIDERS: ADMIT Internal Medicine; ATTEND Internal Medicine
DX: G20 Parkinson's disease (principal); G93.41 Metabolic encephalopathy; I50.20 Unspecified systolic (congestive) heart failure; I48.92 Unspecified atrial flutter; I48.91 Unspecified atrial fibrillation; E11.9 Type 2 diabetes mellitus without complications; E78.00 Pure hypercholesterolemia, unspecified; R26.81 Unsteadiness on feet; K59.00 Constipation, unspecified; R07.89 Other chest pain; R19.7 Diarrhea, unspecified; E03.9 Hypothyroidism, unspecified; R79.89 Other specified abnormal findings of blood chemistry; E83.42 Hypomagnesemia; R41.0 Disorientation, unspecified; M48.54XG Collapsed vertebra, not elsewhere classified, thoracic region, subsequent encounter for fracture with delayed healing; R50.9 Fever, unspecified; E86.0 Dehydration; I95.9 Hypotension, unspecified; I11.0 Hypertensive heart disease with heart failure; D64.9 Anemia, unspecified; F01.50 Vascular dementia, unspecified severity, without behavioral disturbance, psychotic disturbance, mood disturbance, and anxiety; Z95.2 Presence of prosthetic heart valve
CPT/HCPCS: 36415; 70450-TC; 70551-TC; 71045-TC-FY; 74150-TC; 80048; 80053; 80061; 81003; 82550; 82553; 82746; 82962; 83036; 83605; 83690; 83721; 83735; 84100; 84439; 84443; 84481; 84484; 85025; 85027; 85610; 85730; 87040; 87086; 87804; 93005; 93010; 93306-TC; 97116-GP; 97161-GP; 99284-25; J0131; J7030

== ENCOUNTER 2018-12-31 13:00 | Inpatient (IN) | payer OTHER ==
--- NOTE | 2018-12-31 13:49 | PDOC ---
History of Present Illness - General Chief Complaint: Chest Pain Stated Complaint: CHEST PAIN Time Seen by Provider: 12/31/18 13:13 - History of Present Illness Initial Comments: 12/31/18 13:49 The patient is a 68 year old female with a PMH of CAD (s/p STEMI with CABG in ), CHF, HTN, HLD, Parkinson's Disease, IDDM, AFib (on Eliquis) and leaky mitral valves was BIBEMS for chest pain. Patient states she was at [facility] sitting when she felt a substernal pressure like chest pain that did not radiate prompting staff to call 911. Denies associated shortness of breath, lightheadedness, palpitations. Pain similar to a chest pain she experienced in 2019 Notes 2-3 day h/o decreased appetite and aching abdominal pain. Last BM was yesterday and was normal. Last PO intake prior to presentation. NKDA Surgical: CABG (2019), Mitral valve clipping Social: lifetime non-smoker @ 1530 case d/w Patient's son Franc Sanchez (son) - , patient has h /o chest pain since September 2018. As per EMR, patient last evaluated in our ED in 11/2018 for lethargy, AMS w/ hallucinations. Patient admitted and diagnosed with Parkinson's Disease. Discharged to [facility] on 12/24/18. Past History - Past Medical History Allergies/Adverse Reactions: Allergies Allergy/AdvReac Type Severity Reaction Status Date / Time No Known Allergies Allergy Verified 12/31/18 13:23 Home Medications: Ambulatory Orders Apixaban [Eliquis] 5 mg PO BID 12/17/18 Aspirin [Ecotrin] 81 mg PO DAILY 12/17/18 Famotidine [Pepcid] 40 mg PO DAILY 12/17/18 Folic Acid 1 mg PO DAILY 12/17/18 Carbidopa/Levodopa 25/100 [Sinemet 25/100 -] 1 each PO QID tablet 12/24/18 Insulin (Levemir) [Levemir Vial] 12 units SQ DAILY@0700 units 12/24/18 Insulin Sliding Scale [Novolog Vial Sliding Scale -] 1 vial SQ ACHS units 12/24 Metoprolol Tartrate [Lopressor -] 100 mg PO TID tablet 12/24/18 Valsartan [Diovan] 40 mg PO DAILY tablet 12/24/18 Nitroglycerin [Nitrostat] 0.4 mg SL ASDIR 12/31/18 Simvastatin 20 mg PO DAILY 12/31/18 Anemia: No Asthma: No Cancer: No Cardiac Disorders: Yes (a fib, recent cardiac cath, MV disease) CVA: No COPD: No CHF: Yes Dementia: No Diabetes: Yes GI Disorders: No Disorders: No HTN: Yes Hypercholesterolemia: Yes Liver Disease: No Seizures: No Thyroid Disease: No - Surgical History Abdominal Surgery: No Appendectomy: No Cardiac Surgery: Yes (mitral valve replacement.) Cholecystectomy: No Lung Surgery: No Neurologic Surgery: No Orthopedic Surgery: No - Immunization History Immunization Up to Date: Yes - Suicide/Smoking/Psychosocial Hx Smoking History: Never smoked Have you smoked in the past 12 months: No Information on smoking cessation initiated: No Hx Alcohol Use: No Drug/Substance Use Hx: No Substance Use Type: None Hx Substance Use Treatment: No Review of Systems - Review of Systems Constitutional: No: Chills, Fever HEENTM: No: Recent change in vision Respiratory: No: Cough, Shortness of Breath, Stridor, Wheezing Cardiac (ROS): Yes: Chest Pain. No: Palpitations, Syncope ABD/GI: No: Constipated, Diarrhea, Nausea, Vomiting : No: Burning, Dysuria *Physical Exam - Vital Signs Last Vital Signs Temp Pulse Resp BP Pulse Ox 98.9 F 84 16 128/85 96 12/31/18 13:33 12/31/18 13:20 12/31/18 13:20 12/31/18 13:20 12/31/18 13:20 - Physical Exam General Appearance: Yes: Nourished, Obese HEENT: positive: Normal Voice, Hearing Grossly Normal Neck: positive: Trachea midline, Supple Respiratory/Chest: positive: Lungs Clear, Normal Breath Sounds. negative: Crackles, Wheezing Cardiovascular: negative: S1, S2, Edema, JVD, Murmur Vascular Pulses: Femoral (R): 2+, Femoral (L): 2+ Gastrointestinal/Abdominal: positive: Normal Bowel Sounds, Soft, Other (Diffuse abdominal tenderness, greatest in RLQ) Moderate Sedation - Procedure Monitoring Vital Signs: Procedure Monitoring Vital Signs Temperature 98.9 F 12/31/18 13:33 Pulse Rate 84 12/31/18 13:20 Respiratory Rate 16 12/31/18 13:20 Blood Pressure 128/85 12/31/18 13:20 O2 Sat by Pulse Oximetry (%) 96 12/31/18 13:20 Heart Score/ECG Review - ECG Impressions Comment:: 12/31/18 19:52 Atrial fibrillation, HR 82 w/LAD; no SAYDA/STD/TWI; no acute EKG changes ED Treatment Course - LABORATORY CBC & Chemistry Diagram: 12/31/18 15:03 12/31/18 15:04 Medical Decision Making - Medical Decision Making 12/31/18 13:49 68 year old female with chest pain. H/o CABG in October 2018. VS unremarkable. Diffuse abdominal TTP with increased TTP in RUQ. Will obtain Troponin, BNP, EKG, CXR to r/o ACS. Also consider cholecystitis (referred pain ) costochondritis, MSK, Esophageal Spasm. Cardiac monitoring. Reassess. EKG shows AFib with no acute ischemic changes as documented in EKG section of EMR Troponin (-) x1 My read of CXR shows cardiomegaly, PVC, clear costophrenic angles; ? infiltrate RLL Bedside U/S shows no cholelithiasis, normal sized AGBW, normal sized CBD Abdomen CT pending CT negative for cholecystitis, appendicitis, colitis As patient has a h/o recent CABG, chest pain, RF including NIDDM, Heart Score 5 will admit for further observation including repeat Troponins. 12/31/18 19:22 intermittent runs of HR 120's - will give Apixiban as patient only took her AM dose. 12/31/18 19:48 Repeat HR 70's 12/31/18 20:34 Case d/w Dr. Cachorro Polk - patient accepted to OBS Tele Patient counseled on plan of care. Family @ bedside. 12/31/18 22:26 *DC/Admit/Observation/Transfer Diagnosis at time of Disposition: Chest pain - Referrals - Patient Instructions - Post Discharge Activity
--- NOTE | 2018-12-31 15:21 | PDOC ---
*Physical Exam - Vital Signs Last Vital Signs Temp Pulse Resp BP Pulse Ox 98.9 F 84 16 128/85 96 12/31/18 13:33 12/31/18 13:20 12/31/18 13:20 12/31/18 13:20 12/31/18 13:20 ED Treatment Course - LABORATORY CBC & Chemistry Diagram: 01/01/19 05:50 01/01/19 05:50 Medical Decision Making - Medical Decision Making 12/31/18 15:19 68 yo F with RUQ pain called to bedside to perform RUQ ultrasound gallbladder, indication ruq pain. ultrasound gallbladder performed with curvilinear probe. no wall thickening no wall edema. no gallstones, small sludge. normal cbd 3.17 mm neg songraphic conrad's no pericholcystic fluid. impression: normal gallbladder. kwadwo/ brenden. *DC/Admit/Observation/Transfer Diagnosis at time of Disposition: Chest pain - Discharge Dispostion Disposition: [facility] Condition at time of disposition: Improved - Prescriptions - Referrals - Patient Instructions - Post Discharge Activity
[2018-12-31 15:27] LABS: BASO % 1.3 % (0-2.0); EOS % 0.7 % (0-4.5); HEMATOCRIT 32.2 % (32.4-45.2); HEMOGLOBIN 10.7 GM/dL (10.7-15.3); MCH 28.3 pg (25.7-33.7); MCHC 33.2 g/dl (32.0-36.0); MEAN CELL VOLUME 85.1 fl (80-96); MEAN PLT VOLUME 8.7 fl (7.5-11.1); MONO % 5.7 % (3.8-10.2); NEUT % 68.3 % (42.8-82.8); PLATELET COUNT 362 K/MM3 (134-434); RBC 3.78 M/mm3 (3.60-5.2); RDW 17.6 % (11.6-15.6)
[2018-12-31 16:34] LABS: ALK PHOS 82 U/L (45-117); ANION GAP 6 MMOL/L (8-16); BILIRUBIN,TOTAL 0.8 mg/dL (0.2-1); BLOOD UREA NITROGEN 12 mg/dL (7-18); CALCIUM 9.2 mg/dL (8.5-10.1); CHLORIDE 104 mmol/L (98-107); CO2 26 mmol/L (21-32); CREATININE 0.7 mg/dL (0.55-1.3); GLUCOSE,RANDOM 147 mg/dL (74-106); LIPASE 147 U/L (73-393); POTASSIUM 4.3 mmol/L (3.5-5.1); SGOT/AST 33 U/L (15-37); SGPT/ALT 9 U/L (13-61); SODIUM 136 mmol/L (136-145); TOT PROT 7.7 g/dl (6.4-8.2)
[2018-12-31 16:35] LABS: N-TERMINAL BNP 3515.6 pg/ml (5-125)
--- NOTE | 2018-12-31 17:13 | PDOC ---
Attending Attestation - HPI HPI: 12/31/18 17:40 The patient is a 68-year-old female with a past medical history significant for CAD s/p CABG, HTN, HLD, CHF, Cardiac arrest with ROSC, STEMI, Mitral leaflets clipping at ([facility]), Afib and Parkinson's presents to the emergency department via EMS with chest pain. The patient presents from [facility], where she felt substernal chest pain while she was sitting. The patient reports an additional concern of abdominal pain and decreased appetite for the past 2-3 days. DEnies fever chills, shortness of breath, lightheadedness, palpitations - Physicial Exam PE: 12/31/18 17:40 Vitals: Triage Vital signs reviewed General Appearance: no acute distress, well nourished well developed, Neck: Supple;No Nuchal rigidity Chest Wall: Nontender Cardiac: Regular rate and rhythm, no murmurs, no rubs, no gallops, Lungs: Clear to auscultation bilateral, good air movement bilaterally, Abdomen: +RLQ pain. Soft, nondistended. Extremities: Full range of motion to all extremities, no cyanosis, clubbing, or edema Skin: Warm and dry, no rashes or lesions, no petechiae - Medical Decision Making 12/31/18 17:40 Documentation prepared by Melissa Gallo, acting as medical grade shoemaker for Ivan Ace MD. <Melissa Gallo - Last Filed: 12/31/18 17:40> - Resident Resident Name: VenusAda - ED Attending Attestation I have performed the following: I have examined & evaluated the patient, The case was reviewed & discussed with the resident, I agree w/resident's findings & plan, Exceptions are as noted - Medical Decision Making 12/31/18 19:19 68 years old multiple medical problems presents to the ED with lower abdominal discomfort and chest pain Substernal chest pain nonradiating heart score [address] unremarkable We'll observe overnight for cardiac rule out 12/31/18 19:20 <Ivan Ace - Last Filed: 12/31/18 19:21> Heart Score/ECG Review - History History: Moderately suspicious - Electrocardiogram EKG: Normal - Age Age: >/= 65 - Risk Factors Risk Factors Heart Score: Yes Hx Hypercholesterolemia, Yes Hx Hypertension, Yes Positive family hx of cardiac disease Based on the list above the patient has:: >/=3 risk factors or Hx atherosclerotic disease - Troponin Troponin: </= normal limit - Score Heart Score - Total: 5 - ECG Impressions Comment:: 12/31/18 19:20 A. fib 82 bpm left axis deviation no ST elevations or T-wave inversions <Ivan Ace - Last Filed: 12/31/18 19:21>
--- NOTE | 2018-12-31 17:15 | EKG ---
Test Reason : Blood Pressure : / mmHG Vent. Rate : 082 BPM Atrial Rate : 089 BPM P-R Int : 000 ms QRS Dur : 074 ms QT Int : 526 ms P-R-T Axes : 000 -51 -53 degrees QTc Int : 614 ms ATRIAL FIBRILLATION LEFT AXIS DEVIATION NONSPECIFIC T WAVE ABNORMALITY ABNORMAL ECG WHEN COMPARED WITH ECG OF 19-DEC-2018 02:03, QT HAS LENGTHENED Confirmed by MD EDILBERTO, EAGLE ([id number]) on 12/31/2018 5:15:02 PM Referred By: Confirmed By:EAGLE CASANOVA MD
[2018-12-31] MEDS ORDERED: APIXABAN 5 MG TABLET PO ONE ×2 (19:57→19:59)
--- NOTE | 2018-12-31 20:53 | PN ---
Teaching Attending Note Name of Resident: Cachorro Polk ATTENDING PHYSICIAN STATEMENT I saw and evaluated the patient. I reviewed the resident's note and discussed the case with the resident. I agree with the resident's findings and plan as documented. SUBJECTIVE: Seen and examined; please refer to resident note for further historical information. Briefly, this is a 68 y/o female known to me from prior admissions with a complicated PMH. She has Parkinson's, Systolic CHF (mildly reduced LVEF), Aflutter on eliquis (was on 200 BID and on last admission changed to 100 TID MT), MR s/p clip, DM on insulin, chronic T11 compression, elevated TSH. She presents today from [facility] for palpitations and chest discomfort and abdominal pain. History somewhat limited and obtained from family who unfortunately left prior to my arrival. She was noted to be in AF with RVR in the ED and was given 5 metoprolol tartrate IV which controlled her HR and then given her home PO dose. Furthermore, troponin negative. BNP is elevated and we have no prior values to compare with. Sx have improved and she will be brought to the floor. 10 sys ROS done and negative aside from HPI PMH, PSH, Family Hx, Social Hx reviewed Medication list per last DCS: Apixaban [Eliquis] 5 mg PO BID 12/17/18 Aspirin [Ecotrin] 81 mg PO DAILY 12/17/18 Famotidine [Pepcid] 40 mg PO DAILY 12/17/18 Folic Acid 1 mg PO DAILY 12/17/18 Rosuvastatin Calcium [Crestor] 20 mg PO HS 12/17/18 Carbidopa/Levodopa 25/100 [Sinemet 25/100 -] 1 each PO QID tablet 12/24/18 Insulin (Levemir) [Levemir Vial] 12 units SQ DAILY@0700 units 12/24/18 Insulin Sliding Scale [Novolog Vial Sliding Scale -] 1 vial SQ ACHS units 12/24 Metoprolol Tartrate [Lopressor -] 100 mg PO TID tablet 12/24/18 Valsartan [Diovan] 40 mg PO DAILY tablet 12/24/18 OBJECTIVE: VS, labs, imaging reviewed NAD, AAO, resting comfortably in bed NC AT EOMI PERRLA RRR s1/2 no mgr Lungs CTAB, w/ sym exp No rashes or abbrasions CN2-12 wnl, no fnd Normal mood, appropriate behavior EKG reviewed CT scan shoes several small splenic infarcts of indeterminate age; difficult to compare to the 12/17 study due to artifact. Radiology also commented that IVC appeared dilated which could indicate fluid overload ASSESSMENT AND PLAN: Patient presents with Afib with RVR found to have elevated BNP with likely fluid overload; she is found on abdominal CT to have several small splenic infarctions of indeterminate age. 1) Afib with RVR -HR improved with IV metoprolol and stayed controlled throughout the night with her PO 100 dose. She is on 100 PO TID; used to be on 200 BID with 125 PRN per old records. May have to adjust dose further. For now will plan to keep HR< 100 with PRN IV metoprolol and consult cardiology. 2) CHF exacerbation -Likely rate-related; per Dr. Keller's note on DC she was supposed to be on lasix as well; DC med list noted. Will give an additional dose of 40 IV tomorrow (was supposed to be 40 QD at home) and defer further diuresis to cardiology. -CT with fluid overload (dilated IVC, etc.) -Echo reviewed; LVEF 50% with inferior wall hypokinesis 3) Abdominal pain with age-indeterminate Splenic Infarcts -Age indeterminate; on eliquis. Continue with AC and monitor. Ensure she is up to date on vaccinations especially for encapsulated organisms. -Ensure vaccinations against encapsulated organisms up to date. Try to review old imaging from [facility] to determine the chronicity of this. Consider nonurgent subspecialty involvement in AM 4) Chest Discomfort -Trend trops, monitor EKG. Mentioned in old notes that Dr. Monterroso thinks he may benefit from abdominal binder from referred chest wall pain. 5) MR post Sandy-Clip -Patient was started on aspirin at [facility] will continue. Recent echo reviewed 6) Hx Hypotension -Careful titration of rate control 7) T2DM -Continue Levemir continue with 12 units hs, SSI 8) Known T11 Fx -Propr Neurosx consult appreciated Dr Sawyer. 9) HLD -Continue statin Full Code
--- NOTE | 2018-12-31 21:20 | HP ---
<Cachorro Polk - Last Filed: 01/01/19 06:05> CHIEF COMPLAINT: chest tightness and palpitation PCP: Dr. Poncho Amaro ([place]) HISTORY OF PRESENT ILLNESS: The patient is a 68-year-old female with a past medical history significant for CAD s/p CABG, HTN, HLD, CHF, Cardiac arrest with ROSC, STEMI, Mitral leaflets clipping at ([facility]), Afib and Parkinson's presents to the emergency department via EMS with chest pain. The patient presents from [facility], where she felt substernal chest pain while she was sitting. The patient reports an additional concern of abdominal pain and decreased appetite for the past 2-3 days. Denies fever chills, shortness of breath, lightheadedness, palpitations son at bed side does not know what happen exactly patient endorse chest tightness , resless in bed and complaining of irregular heart beat denies any headache , blurry vision , N/V/D pt son reports No BM for few days ER course was notable for: (1)lasix 40 (2)CT abdomen/pelvic with splenic infarct (3) Cbc, cmp Recent Travel:denies PAST MEDICAL HISTORY: HTN HLD CHF recent catheterization parkinson PAST SURGICAL HISTORY: recent cath Social History: Smoking:denies Alcohol:denies Drugs: denies Family History: non contributory Allergies No Known Allergies Allergy (Verified 12/31/18 13:23) HOME MEDICATIONS: Home Medications Medication Instructions Recorded Apixaban [Eliquis] 5 mg PO BID 12/17/18 Aspirin [Ecotrin] 81 mg PO DAILY 12/17/18 Famotidine [Pepcid] 40 mg PO DAILY 12/17/18 Folic Acid 1 mg PO DAILY 12/17/18 Carbidopa/Levodopa 25/100 [Sinemet 1 each PO QID tablet 12/24/18 25/100 -] Insulin (Levemir) [Levemir Vial] 12 units SQ DAILY@0700 units 12/24/18 Insulin Sliding Scale [Novolog 1 vial SQ ACHS units 12/24/18 Vial Sliding Scale -] Metoprolol Tartrate [Lopressor -] 100 mg PO TID tablet 12/24/18 Valsartan [Diovan] 40 mg PO DAILY tablet 12/24/18 Nitroglycerin [Nitrostat] 0.4 mg SL ASDIR 12/31/18 Simvastatin 20 mg PO DAILY 12/31/18 REVIEW OF SYSTEMS CONSTITUTIONAL: Absent: fever, chills, diaphoresis, generalized weakness, malaise, loss of appetite, weight change HEENT: Absent: rhinorrhea, nasal congestion, throat pain, throat swelling, difficulty swallowing, mouth swelling, ear pain, eye pain, visual changes CARDIOVASCULAR: Absent: chest pain, syncope, palpitations, irregular heart rate, lightheadedness , peripheral edema RESPIRATORY: Absent: cough, shortness of breath, dyspnea with exertion, orthopnea, wheezing, stridor, hemoptysis GASTROINTESTINAL: Absent: abdominal pain, abdominal distension, nausea, vomiting, diarrhea, constipation, melena, hematochezia GENITOURINARY: Absent: dysuria, frequency, urgency, hesitancy, hematuria, flank pain, genital pain MUSCULOSKELETAL: Absent: myalgia, arthralgia, joint swelling, back pain, neck pain SKIN: Absent: rash, itching, pallor HEMATOLOGIC/IMMUNOLOGIC: Absent: easy bleeding, easy bruising, lymphadenopathy, frequent infections ENDOCRINE: Absent: unexplained weight gain, unexplained weight loss, heat intolerance, cold intolerance NEUROLOGIC: Absent: headache, focal weakness or paresthesias, dizziness, unsteady gait, seizure, mental status changes, bladder or bowel incontinence PSYCHIATRIC: Absent: anxiety, depression, suicidal or homicidal ideation, hallucinations. PHYSICAL EXAMINATION Vital Signs - 24 hr 12/31/18 12/31/18 12/31/18 13:19 13:20 13:33 Temperature 98.9 F Pulse Rate 84 84 Pulse Rate [ Left Radial] Respiratory 16 Rate Blood Pressure 128/85 Blood Pressure [Right Arm] O2 Sat by Pulse 97 96 Oximetry (%) 12/31/18 19:46 Temperature 97.8 F Pulse Rate Pulse Rate [ 75 Left Radial] Respiratory 18 Rate Blood Pressure Blood Pressure 122/69 [Right Arm] O2 Sat by Pulse 98 Oximetry (%) GENERAL: Awake, alert, restless in bed HEAD: NC/AT EYES: MALVIN, EOMI , ENT :Moist mucous membranes. NECK: supple LUNGS:decrease breath sound at the bases HEART: irregular rate and rhythm ABDOMEN: Soft, RUQ tenderness diffuse tenderness , distended, normoactive bowel sounds, LOWER EXTREMITIES: 2+ pulses, warm, well-perfused. No calf tenderness. trace peripheral edema. NEUROLOGICAL: Cranial nerves II-XII intact. Normal speech. PSYCHIATRIC: Cooperative. SKIN: Warm, dry, normal turgor, Laboratory Results - last 24 hr 12/31/18 12/31/18 12/31/18 15:03 15:04 15:04 WBC 9.0 RBC 3.78 Hgb 10.7 Hct 32.2 L MCV 85.1 MCH 28.3 MCHC 33.2 RDW 17.6 H Plt Count 362 MPV 8.7 Absolute Neuts (auto) 6.2 Neutrophils % 68.3 Lymphocytes % 24.0 Monocytes % 5.7 Eosinophils % 0.7 Basophils % 1.3 Nucleated RBC % 0 Sodium 136 Potassium 4.3 Chloride 104 Carbon Dioxide 26 Anion Gap 6 L BUN 12 Creatinine 0.7 Creat Clearance w eGFR > 60 Random Glucose 147 H Calcium 9.2 Total Bilirubin 0.8 AST 33 ALT 9 L Alkaline Phosphatase 82 Troponin I < 0.02 B-Natriuretic Peptide 3515.6 H Total Protein 7.7 Albumin 3.0 L Lipase 147 CBC, BMP 12/31/18 15:03 12/31/18 15:04 EKG :Afib with left axic deviation , QT 614 CT Abdomen /pelvic with splenic infarc intermediate age , cardiomegaly , congestive changes , IVC dilation ASSESSMENT/PLAN: 68F w/ pmhx of HTN/HLD, CHF, Cardiac arrest w/ ROSC , STEMI with use of IABP ( October/2018) , Mitral leaflets clipping at [facility], was brought to the ED from rehab due to chest discomfort and palpitations admitted to obs tele due to chf exacerbation. and to R/O ACS #Chest pain unlikely ASC probably from Afib and volume overloaded * Pt complaining of similar chest pain prior to Mitral Valvie clipping. * ASA 81 mg daily. * Troponin negative x 2 * Dr Cifuentes consulted * EKG as above * avoid QTc prolonging agents * lasix 40 IV daily , discharged last visit without diuretics #CHF exacerbation * BNP 3500 , was dc last visit without lasix * 40 Lasix iv daily * I&O * Daily weight * echo in last visit with EF 50 % , inferior wall hypokinesis # splenic infract * noticed on CT abdomen * On ELiquis 5 BID cont * will benefit from vaccine for encapsulated organism # constipation * NO BM for few days * diffuse abdominal tenderness * extensive Sruthi regimen miralax , colace and senna #parkinson features * Head CT neg for any acute pathology in last visit * resume home meds # Diabetes Melitus * 12 U SQ AM * ISS * hold oral agents #Afib * Eliquis 5 PO BID * Toprol 100 TID * Metoprolol IV 5 PRN #HTN * Metoprolol Tartrate 100 mg PO TID * Diovan 40 Daily #HLD * Crestor 20 mg PO HS #Prophylaxis * Eliquis 5 po bid * Ranitidine 300 QD #FEN * No standing Fluids * monitor lytes * sodium-controlled diet dispo * tele obs Visit type - Emergency Visit Emergency Visit: Yes ED Registration Date: 12/31/18 Care time: The patient presented to the Emergency Department on the above date and was hospitalized for further evaluation of their emergent condition. - New Patient This patient is new to me today: Yes Date on this admission: 01/01/19 - Critical Care Critical Care patient: No <Francisco Mauricio - Last Filed: 02/05/19 19:45> Seen and examined; agree with above aside from as supplemented by myself in my own assessment, plan, and physical examination.
[2018-12-31] MEDS ORDERED: NITROGLYCERIN SUBLINGUAL 1/150 0.4 MG TAB SL PRN (21:30)
[2018-12-31] MEDS ORDERED: FUROSEMIDE 100 MG/10 ML INJECTABLE VIAL IVPB ONE (21:45)
[2018-12-31] MEDS ORDERED: METOPROLOL TARTRATE 50 MG TABLET (FP) ONE (21:52)
[2018-12-31] MEDS ORDERED: CARBIDOPA/LEVODOPA 25/100 TABLET (FP) ONE (21:52)
[2018-12-31] MEDS: APIXABAN 5 MG TABLET PO SCH (22:08)
[2018-12-31] MEDS ORDERED: FUROSEMIDE 40 MG/4 ML INJECTABLE VIAL ONE (22:10)
[2018-12-31] MEDS ORDERED: INSULIN (NOVOLOG) ASPART 100 UNITS/ML 10ML VIAL ONE (22:17)
[2018-12-31] MEDS: INSULIN SLIDING SCALE (NOVOLOG) 1 VIAL SQ SCH (22:28)
[2018-12-31] MEDS: CARBIDOPA/LEVODOPA 25/100 TABLET (FP) PO SCH (22:28)
[2018-12-31] MEDS: METOPROLOL TARTRATE 50 MG TABLET (FP) PO SCH (22:28)
[2018-12-31] MEDS ORDERED: METOPROLOL TARTRATE 5 MG/5 ML VIAL IVPUSH ONE ×2 (22:40→22:45)
[2018-12-31] MEDS: POLYETHYLENE GLYCOL 3350 119 GM BTL PO SCH (22:42)
[2019-01-01 03:15] VITALS: BMI 28.5
[2019-01-01] MEDS ORDERED: HEPARIN NA (PORCINE) 5,000 UNITS/ML 1ML VIAL SQ SCH (06:00)
[2019-01-01] MEDS: INSULIN SLIDING SCALE (NOVOLOG) 1 VIAL SQ SCH ×3 (06:43→17:15)
[2019-01-01] MEDS: METOPROLOL TARTRATE 50 MG TABLET (FP) PO SCH ×2 (06:44→13:57)
[2019-01-01] MEDS: INSULIN (LEVEMIR) 100 UNITS/ML UNITS SQ SCH ×2 (06:48→09:25)
[2019-01-01 07:23] LABS: BASO % 0.7 % (0-2.0); HEMOGLOBIN 10.7 GM/dL (10.7-15.3); LYMPH % 32.8 % (8-40); MCH 28.2 pg (25.7-33.7); MCHC 33.4 g/dl (32.0-36.0); MEAN CELL VOLUME 84.5 fl (80-96); MEAN PLT VOLUME 8.8 fl (7.5-11.1); MONO % 7.3 % (3.8-10.2); NEUT % 58.2 % (42.8-82.8); PLATELET COUNT 356 K/MM3 (134-434); RBC 3.79 M/mm3 (3.60-5.2); RDW 17.5 % (11.6-15.6); WHITE BLOOD COUNT 8.8 K/mm3 (4.0-10.0)
[2019-01-01 07:34] LABS: INR 1.89 (0.83-1.09); PROTHROMBIN TIME (PATIENT) 22.5 SEC (9.7-13.0)
[2019-01-01 07:37] LABS: ACTIVATED PTT 31.7 SECONDS (25.2-36.5)
[2019-01-01 07:52] LABS: ALBUMIN 3.1 g/dl (3.4-5.0); ALK PHOS 79 U/L (45-117); ANION GAP 8 MMOL/L (8-16); BILIRUBIN,TOTAL 0.9 mg/dL (0.2-1); BLOOD UREA NITROGEN 10 mg/dL (7-18); CHLORIDE 102 mmol/L (98-107); CO2 27 mmol/L (21-32); CREATININE 0.8 mg/dL (0.55-1.3); GLUCOSE,RANDOM 135 mg/dL (74-106); MAGNESIUM 1.8 mg/dL (1.8-2.4); N-TERMINAL BNP 4603.6 pg/ml (5-125); PHOSPHOROUS 4.1 mg/dL (2.5-4.9); POTASSIUM 3.8 mmol/L (3.5-5.1); SGOT/AST 16 U/L (15-37); SGPT/ALT 11 U/L (13-61); SODIUM 137 mmol/L (136-145); TOT PROT 7.5 g/dl (6.4-8.2)
--- NOTE | 2019-01-01 09:12 | PN ---
Teaching Attending Note Name of Resident: Kelvin Wolfe ATTENDING PHYSICIAN STATEMENT I saw and evaluated the patient. I reviewed the resident's note and discussed the case with the resident. I agree with the resident's findings and plan as documented. SUBJECTIVE: Patient is feeling better with no acute distress. Going back to rehab. OBJECTIVE: Vital Signs Temperature 97.3 F L 01/01/19 08:04 Pulse Rate 92 H 01/01/19 08:04 Respiratory Rate 20 01/01/19 08:06 Blood Pressure 128/83 01/01/19 08:04 O2 Sat by Pulse Oximetry (%) 95 01/01/19 08:06 GEN: NAD, AAOx3, resting comfortably in bed HEENT: NC, AT, EOMI, PERRLA, RRR :S1S2 positive , irregularly-irregular rate controlled. Lungs CTAB, no rales, no rhonchi. Abdomen: soft, nt, nr, ng, no mass is appreciated Neuro: CN2-12 grossly intact Psych:mNormal mood, appropriate behavior CBCD WBC 8.8 K/mm3 (4.0-10.0) 01/01/19 05:50 RBC 3.79 M/mm3 (3.60-5.2) 01/01/19 05:50 Hgb 10.7 GM/dL (10.7-15.3) 01/01/19 05:50 Hct 32.0 % (32.4-45.2) L 01/01/19 05:50 MCV 84.5 fl (80-96) 01/01/19 05:50 MCHC 33.4 g/dl (32.0-36.0) 01/01/19 05:50 RDW 17.5 % (11.6-15.6) H 01/01/19 05:50 Plt Count 356 K/MM3 (134-434) 01/01/19 05:50 MPV 8.8 fl (7.5-11.1) 01/01/19 05:50 CMP Sodium 137 mmol/L (136-145) 01/01/19 05:50 Potassium 3.8 mmol/L (3.5-5.1) 01/01/19 05:50 Chloride 102 mmol/L (98-107) 01/01/19 05:50 Carbon Dioxide 27 mmol/L (21-32) 01/01/19 05:50 Anion Gap 8 MMOL/L (8-16) 01/01/19 05:50 BUN 10 mg/dL (7-18) 01/01/19 05:50 Creatinine 0.8 mg/dL (0.55-1.3) 01/01/19 05:50 Creat Clearance w eGFR > 60 (>60) 01/01/19 05:50 Random Glucose 135 mg/dL (74-106) H 01/01/19 05:50 Calcium 9.0 mg/dL (8.5-10.1) 01/01/19 05:50 Total Bilirubin 0.9 mg/dL (0.2-1) 01/01/19 05:50 AST 16 U/L (15-37) 01/01/19 05:50 ALT 11 U/L (13-61) L 01/01/19 05:50 Alkaline Phosphatase 79 U/L (45-117) 01/01/19 05:50 Total Protein 7.5 g/dl (6.4-8.2) 01/01/19 05:50 Albumin 3.1 g/dl (3.4-5.0) L 01/01/19 05:50 CARDIAC ENZYMES Troponin I < 0.02 ng/ml (0.00-0.05) 01/01/19 01:19 Current Medications Generic Name Dose Route Start Last Admin Trade Name Freq PRN Reason Stop Dose Admin Apixaban 5 mg 12/31/18 22:00 12/31/18 22:08 Eliquis - PO Not Given BID [facility] Aspirin 81 mg 01/01/19 10:00 Ecotrin - PO DAILY [facility] Atorvastatin Calcium 10 mg 01/01/19 22:00 Lipitor - PO HS [facility] Carbidopa/Levodopa 1 each 12/31/18 22:00 12/31/18 22:28 Sinemet 25/100 - PO 1 each QID [facility] Administration Docusate Sodium 300 mg 01/01/19 22:00 Colace - PO HS [facility] Folic Acid 1 mg 01/01/19 10:00 Folic Acid - PO DAILY [facility] Furosemide 40 mg 01/01/19 10:00 Lasix Injection - IVPUSH DAILY [facility] Insulin Aspart 1 vial 12/31/18 22:00 01/01/19 06:43 Novolog Vial Sliding Scale - SQ Not Given ACHS [facility] Protocol Insulin Detemir 12 units 01/01/19 07:00 01/01/19 06:48 Levemir Vial SQ Not Given DAILY@0700 [facility] Metoprolol Tartrate 100 mg 12/31/18 22:00 01/01/19 06:44 Lopressor - PO 100 mg TID JESSICA Administration Nitroglycerin 0.4 mg 12/31/18 21:30 Nitrostat - SL Q5M PRN CHEST PAIN Polyethylene Glycol 17 gm 12/31/18 22:15 12/31/18 22:42 Miralax (For Daily Use) - PO 17 gm BID JESSICA Administration Ranitidine HCl 300 mg 01/01/19 10:00 Zantac - PO DAILY JESSICA Senna/Docusate Sodium 2 tablet 01/01/19 22:00 Pericolace - PO 01/01/19 22:06 HS [facility] Valsartan 40 mg 01/01/19 10:00 Diovan - PO DAILY [facility] Home Medications Medication Instructions Recorded Apixaban [Eliquis] 5 mg PO BID 12/17/18 Aspirin [Ecotrin] 81 mg PO DAILY 12/17/18 Famotidine [Pepcid] 40 mg PO DAILY 12/17/18 Folic Acid 1 mg PO DAILY 12/17/18 Carbidopa/Levodopa [Sinemet 1 each PO QID tablet 12/24/18 -] Insulin (Levemir) [Levemir Vial] 12 units SQ DAILY@0700 units 12/24/18 Insulin Sliding Scale [Novolog 1 vial SQ ACHS units 12/24/18 Vial Sliding Scale -] Metoprolol Tartrate [Lopressor -] 100 mg PO TID tablet 12/24/18 Valsartan [Diovan] 40 mg PO DAILY tablet 12/24/18 Nitroglycerin [Nitrostat] 0.4 mg SL ASDIR 12/31/18 Simvastatin 20 mg PO DAILY 12/31/[address] scan shoes several small splenic infarcts of indeterminate age; difficult to compare to the 12/17 study due to artifact. Radiology also commented that IVC appeared dilated which could indicate fluid overload ASSESSMENT AND PLAN: Patient presents with Afib with RVR found to have elevated BNP with likely fluid overload; she is found to have splenic infarct on abdominal CT of indeterminate age. # Afib with RATE CONTROLLED on metoprolol on 100 PO TID; as per cardiology to continue. # Acute diastolic CHF exacerbation s/p IV lasix, will switch to po lasix 40mg daily continue # Recent diagnosis of parkinsonism continue her meds, follow with # Abdominal pain with age-indeterminate Splenic Infarcts on Eliquis , will get hematology involved if it's ok to continue Noac for splenic infarct, we have no data for now. # Chest Discomfort, trops. negative, Mentioned in old notes that Dr. Monterroso thinks he may benefit from abdominal binder from referred chest wall pain. # MR post Sandy-Clip on aspirin at [facility] and was started on eliquis 5mg po bid at [facility], will continue. Recent echo reviewed # Hx Hypotension which is within normal limit # T2DM Continue Levemir continue with 12 units hs, SSI #Hx of T11 Fx Propr Neurosx consult appreciated Dr Sawyer. # HLD Continue statin Full Code
[2019-01-01] MEDS: APIXABAN 5 MG TABLET PO SCH (09:21)
[2019-01-01] MEDS: CARBIDOPA/LEVODOPA 25/100 TABLET (FP) PO SCH ×3 (09:21→17:24)
[2019-01-01] MEDS: POLYETHYLENE GLYCOL 3350 119 GM BTL PO SCH (09:24)
[2019-01-01] MEDS ORDERED: VALSARTAN 40 MG TABLET (FP) PO SCH (10:00)
[2019-01-01] MEDS ORDERED: FUROSEMIDE 40 MG/4 ML INJECTABLE VIAL IVPUSH SCH (10:00)
[2019-01-01] MEDS ORDERED: RANITIDINE HCL 150 MG TABLET (FP) PO SCH (10:00)
[2019-01-01] MEDS ORDERED: FOLIC ACID 1 MG TABLET (FP) PO SCH (10:00)
[2019-01-01] MEDS ORDERED: ASPIRIN COATED 81 MG TABLET.EC PO SCH (10:00)
--- NOTE | 2019-01-01 10:26 | CON.CARD ---
Consult Consult Specialty:: Cardiology Reason for Consultation:: cp - History of Present Illness History of Present Illness: The patient is a 68-year-old female with a past medical history significant for CAD s/p CABG, HTN, HLD, CHF, Cardiac arrest with ROSC, STEMI, Mitral leaflets clipping at ([facility]), Afib and Parkinson's presents to the emergency department via EMS with chest pain. The patient presents from [facility], where she felt substernal chest pain while she was sitting. The patient reports an additional concern of abdominal pain and decreased appetite for the past 2-3 days. 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 IN DOBBY LOOM: Yes: Dementia Cardio/Vascular: Yes: AFIB, CHF (borderline reduced LVEF on 2019 ECHO), HTN ...: No - Alcohol/Substance Use Hx Alcohol Use: No - Smoking History Smoking history: Never smoked Have you smoked in the past 12 months: No Home Medications - Allergies Allergies/Adverse Reactions: Allergies Allergy/AdvReac Type Severity Reaction Status Date / Time No Known Allergies Allergy Verified 12/31/18 13:23 - Home Medications Home Medications: Ambulatory Orders Apixaban [Eliquis] 5 mg PO BID 12/17/18 Aspirin [Ecotrin] 81 mg PO DAILY 12/17/18 Famotidine [Pepcid] 40 mg PO DAILY 12/17/18 Folic Acid 1 mg PO DAILY 12/17/18 Carbidopa/Levodopa 25/100 [Sinemet 25/100 -] 1 each PO QID tablet 12/24/18 Insulin (Levemir) [Levemir Vial] 12 units SQ DAILY@0700 units 12/24/18 Insulin Sliding Scale [Novolog Vial Sliding Scale -] 1 vial SQ ACHS units 12/24 Metoprolol Tartrate [Lopressor -] 100 mg PO TID tablet 12/24/18 Valsartan [Diovan] 40 mg PO DAILY tablet 12/24/18 Nitroglycerin [Nitrostat] 0.4 mg SL ASDIR 12/31/18 Simvastatin 20 mg PO DAILY 12/31/18 Review of Systems - Review of Systems Constitutional: reports: No Symptoms Eyes: reports: No Symptoms HENT: reports: No Symptoms Neck: reports: No Symptoms Cardiovascular: reports: Chest Pain Gastrointestinal: reports: No Symptoms Genitourinary: reports: No Symptoms Breasts: reports: No Symptoms Reported Musculoskeletal: reports: No Symptoms Integumentary: reports: No Symptoms Neurological: reports: No Symptoms Endocrine: reports: No Symptoms Hematology/Lymphatic: reports: No Symptoms Psychiatric: reports: No Symptoms Vital Signs: Vital Signs Temperature 97.3 F L 01/01/19 08:04 Pulse Rate 92 H 01/01/19 08:04 Respiratory Rate 20 01/01/19 08:06 Blood Pressure 128/83 01/01/19 08:04 O2 Sat by Pulse Oximetry (%) 95 01/01/19 08:06 Constitutional: Yes: Well Nourished, No Distress, Calm Eyes: Yes: WNL, Conjunctiva Clear, EOM Intact HENT: Yes: WNL, Atraumatic, Normocephalic Neck: Yes: WNL, Supple, Trachea Midline Respiratory: Yes: WNL, Regular, CTA Bilaterally Gastrointestinal: Yes: WNL, Normal Bowel Sounds Renal/: Yes: WNL Cardiovascular: Yes: WNL, Regular Rate and Rhythm Musculoskeletal: Yes: WNL Extremities: Yes: WNL Integumentary: Yes: WNL Neurological: Yes: WNL, Alert, Oriented ...Motor Strength: WNL Psychiatric: Yes: WNL, Alert, Oriented - Other Data Labs, Other Data: CBC, BMP 01/01/19 05:50 01/01/19 05:50 INR, PTT INR 1.89 (0.83-1.09) H 01/01/19 05:50 Troponin, BNP 12/31/18 01/01/19 01/01/19 15:04 01:19 05:50 Troponin I < 0.02 < 0.02 B-Natriuretic Peptide 3515.6 H 4603.6 H Troponin, BNP 12/31/18 01/01/19 01/01/19 15:04 01:19 05:50 Troponin I < 0.02 < 0.02 B-Natriuretic Peptide 3515.6 H 4603.6 H Imaging - Results Chest X-ray: Image Reviewed (chf) EKG: Image Reviewed (af rep abn) Problem List - Problems (1) Chest pain Code(s): R07.9 - CHEST PAIN, UNSPECIFIED (2) Anemia Code(s): D64.9 - ANEMIA, UNSPECIFIED (3) Atrial fibrillation with rapid ventricular response Code(s): I48.91 - UNSPECIFIED ATRIAL FIBRILLATION (4) Confusion Code(s): R41.0 - DISORIENTATION, UNSPECIFIED (5) Elevated lactic acid level Code(s): R79.89 - OTHER SPECIFIED ABNORMAL FINDINGS OF BLOOD CHEMISTRY (6) FH: mitral valve repair Code(s): Z82.49 - FAMILY HX OF ISCHEM HEART DIS AND OTH DIS OF THE CIRC SYS (7) Hypomagnesemia Code(s): E83.42 - HYPOMAGNESEMIA (8) Hypothyroid Code(s): E03.9 - HYPOTHYROIDISM, UNSPECIFIED (9) Need for assistance due to unsteady gait Code(s): R26.89 - OTHER ABNORMALITIES OF GAIT AND MOBILITY (10) Parkinsonian tremor Code(s): G20 - PARKINSON'S DISEASE (11) Subcortical dementia Code(s): F03.90 - UNSPECIFIED DEMENTIA WITHOUT BEHAVIORAL DISTURBANCE (12) Systolic CHF Code(s): I50.20 - UNSPECIFIED SYSTOLIC (CONGESTIVE) HEART FAILURE Assessment/Plan 1. Diastolic LV dysfunction with mild decompensation.c 2. 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 Persistent atrial fibrillation [id number] score of 4 on A/C with DOAC's 4. Altered mental status 5. HTN 6. DM 7. Hypercholestrolemia 8. parkinson's disease 9.Dementia 10. ATYPICAL cp r/o mi negative PLAN: 1. Continue Lopressor 2. Continue Diovan 3. Continue A/C with Eliquis with caution and close monitoring of CBC 4. Continue ASA with caution and close monitoring of CBC 5. Continue Crestor 6. AGREE WITH lASIX
--- NOTE | 2019-01-01 11:08 | EKG ---
Test Reason : Blood Pressure : / mmHG Vent. Rate : 103 BPM Atrial Rate : 326 BPM P-R Int : 000 ms QRS Dur : 072 ms QT Int : 378 ms P-R-T Axes : 000 -44 233 degrees QTc Int : 495 ms ATRIAL FLUTTER WITH VARIABLE A-V BLOCK WITH PREMATURE VENTRICULAR OR ABERRANTLY CONDUCTED COMPLEXES LEFT AXIS DEVIATION NONSPECIFIC ST AND T WAVE ABNORMALITY ABNORMAL ECG WHEN COMPARED WITH ECG OF 31-DEC-2018 22:10, ATRIAL FLUTTER HAS REPLACED ATRIAL FIBRILLATION Confirmed by KYLEE VEGA, BERONICA ([id number]) on 01/01/2019 11:07:49 AM Referred By: Tiff TADEO Confirmed By:BERONICA PICHARDO MD
--- NOTE | 2019-01-01 18:36 | DS ---
Physical Exam: SUBJECTIVE: Patient seen and examined at bedside. Denies chest pain or shortness of breath. OBJECTIVE: Vital Signs Period Temp Pulse Resp BP Sys/Castillo Pulse Ox Last 24 Hr 97.3 F-97.8 F 75-106 16-20 99-134/54-87 95-98 PHYSICAL EXAM GENERAL: Awake Alert eating breakfast. HEAD: Atraumatic/ Normocephalic EYES: eomi sclera clear ENT: mmm NECK: Trachea midline, full range of motion, supple. LUNGS: Decreased BS @ Bases HEART: Irreg Irreg nl s1 s2 ABDOMEN: soft ndnt no hsm EXTREMITIES: Trace edema b/l lower extremities NEUROLOGICAL: Cranial nerves II through XII grossly intact. Normal speech PSYCH: Normal mood, normal affect. SKIN: Warm, dry, normal turgor, no rashes or lesions noted. LABS Laboratory Results - last 24 hr 12/31/18 01/01/19 01/01/19 22:04 01:19 05:50 WBC 8.8 RBC 3.79 Hgb 10.7 Hct 32.0 L MCV 84.5 MCH 28.2 MCHC 33.4 RDW 17.5 H Plt Count 356 MPV 8.8 Absolute Neuts (auto) 5.1 Neutrophils % 58.2 Lymphocytes % 32.8 D Monocytes % 7.3 Eosinophils % 1.0 Basophils % 0.7 Nucleated RBC % 0 PT with INR INR PTT (Actin FS) Sodium Potassium Chloride Carbon Dioxide Anion Gap BUN Creatinine Creat Clearance w eGFR POC Glucometer 228 Random Glucose Calcium Phosphorus Magnesium Total Bilirubin AST ALT Alkaline Phosphatase Troponin I < 0.02 B-Natriuretic Peptide Total Protein Albumin 01/01/19 01/01/19 01/01/19 05:50 05:50 05:55 WBC RBC Hgb Hct MCV MCH MCHC RDW Plt Count MPV Absolute Neuts (auto) Neutrophils % Lymphocytes % Monocytes % Eosinophils % Basophils % Nucleated RBC % PT with INR 22.50 H INR 1.89 H PTT (Actin FS) 31.7 Sodium 137 Potassium 3.8 Chloride 102 Carbon Dioxide 27 Anion Gap 8 BUN 10 Creatinine 0.8 Creat Clearance w eGFR > 60 POC Glucometer 110 Random Glucose 135 H Calcium 9.0 Phosphorus 4.1 Magnesium 1.8 Total Bilirubin 0.9 AST 16 ALT 11 L Alkaline Phosphatase 79 Troponin I B-Natriuretic Peptide 4603.6 H Total Protein 7.5 Albumin 3.1 L 01/01/19 01/01/19 01/01/19 08:50 11:03 17:08 WBC RBC Hgb Hct MCV MCH MCHC RDW Plt Count MPV Absolute Neuts (auto) Neutrophils % Lymphocytes % Monocytes % Eosinophils % Basophils % Nucleated RBC % PT with INR INR PTT (Actin FS) Sodium Potassium Chloride Carbon Dioxide Anion Gap BUN Creatinine Creat Clearance w eGFR POC Glucometer 242 152 Random Glucose Calcium Phosphorus Magnesium Total Bilirubin AST ALT Alkaline Phosphatase Troponin I < 0.02 B-Natriuretic Peptide Total Protein Albumin HOSPITAL COURSE: Date of Admission:12/31/18 Pt is a 68 y/o F w/ pmhx of HTN/HLD, CHF, Cardiac arrest w/ ROSC , STEMI with use of IABP (October/2018) , Mitral leaflets clipping at [facility], who was brought to the ED from [facility] rehab due to chest discomfort and palpitations and admitted to obs tele due to chf exacerbation and to r/o ACS. Pt's troponins were negative x 2. EKG revealed Atrial fib 82 bpm left axis deviation no ST elevations or T-wave inversions. Pt was given I.V lasix 40 in the ED. Pt discharged back to [facility]. Date of Discharge: 01/01/19 Minutes to complete discharge: 35 Discharge Summary Reason For Visit: CHEST PAIN Condition: Improved - Instructions Diet, Activity, Other Instructions: You were admitted for retaining too much water after not receiving your Lasix home dose. You were given IV Lasix and you felt much better. You are being discharged back to rehab to further continue. MEDICATIONS: You will have Miralax and Pericolace (stool softeners) at your need in the rehab facility if you remain constipated, however you will need to ask for them. Please continue the following medications at your rehab facility: Lasix 40mg PO DAILY Sinemet 25/100 FOUR TIMES per day Levemir 12U in the morning Eliquis 5mg PO TWICE DAILY Aspirin 81mg DAILY Lopressor 100mg THREE TIMES per day Diovan 40mg DAILY Folic Acid 1mg Daily Pepcid 40mg DAILY And your regular insulin sliding scale as below Follow-up: Please continue your rehabilitation at [facility] Please follow-up with your primary care, Dr. Amaro as we described before Please follow-up with Dr. Lassiter with your regularly scheduled appointments Please continue to weigh yourself daily and if you increase 2-4lbs in one day call your primary care for recommendations regarding a possible increase in Lasix dose temporarily Referrals: Froilan Amaro MD [Non Staff, Medical] - Boogie Lassiter MD [Staff Physician] - Disposition: [facility] - Home Medications Comprehensive Discharge Medication List: Ambulatory Orders Apixaban [Eliquis] 5 mg PO BID 12/17/18 Aspirin [Ecotrin] 81 mg PO DAILY 12/17/18 Famotidine [Pepcid] 40 mg PO DAILY 12/17/18 Folic Acid 1 mg PO DAILY 12/17/18 Carbidopa/Levodopa 25/100 [Sinemet 25/100 -] 1 each PO QID tablet 12/24/18 Insulin (Levemir) [Levemir Vial] 12 units SQ DAILY@0700 units 12/24/18 Metoprolol Tartrate [Lopressor -] 100 mg PO TID tablet 12/24/18 Valsartan [Diovan] 40 mg PO DAILY tablet 12/24/18 Simvastatin 20 mg PO DAILY 12/31/18 Furosemide [Lasix] 40 mg PO DAILY #30 tablet 01/01/19 Insulin Sliding Scale [Novolog Vial Sliding Scale -] See Protocol SQ ACHS #0 units 01/01/19 Polyethylene Glycol 3350 [Miralax 119 gm Btl -] 17 gm PO BID PRN bottle Sennosides/Docusate Sodium [Pericolace -] 2 tablet PO HS PRN tablet 01/01/19 This patient is new to me today: Yes Date on this admission: 01/01/19 Emergency Visit: Yes ED Registration Date: 12/31/18 Care time: The patient presented to the Emergency Department on the above date and was hospitalized for further evaluation of their emergent condition. Critical Care patient: No - Discharge Referral Referred to [facility] Med P.C.: No
[2019-01-01 21:23] VITALS: BP 146/99; PULSE 100; TEMP 98.6
[2019-01-01] MEDS ORDERED: ATORVASTATIN CA 10 MG TABLET (FP) PO SCH (22:00)
[2019-01-01] MEDS ORDERED: DOCUSATE SODIUM 100 MG CAPSULE (FP) PO SCH (22:00)
[2019-01-01] MEDS ORDERED: SENNOSIDES/DOCUSATE COMBO (SENNA PLUS) TABLET (UD) PO SCH (22:00)
--- NOTE | 2019-01-02 15:27 | HOSP ---
Subjective - Review of Symptoms Events since last encounter: Further discussing with Oncologist/field insurance sales manager , patient should not be on ELIQUIS since not indicated for splenic infarct. called [facility], discussed with Donn who is the nurse taking the patient. discontinued Eliquis , ordered Lovenox 70mg sq, and added coumadin 5mg for tonight at 6pm, Pt/INR in am , and notify the doctor who is Karolyn leija will follow the patient. Patient' s INR is 1.89. Physical Examination Vital Signs: Vital Signs Temperature 98.6 F 01/01/19 20:30 Pulse Rate 100 H 01/01/19 20:30 Respiratory Rate 18 01/01/19 20:30 Blood Pressure 146/99 01/01/19 20:30 O2 Sat by Pulse Oximetry (%) 95 01/01/19 17:00 Labs: CBC, BMP 01/01/19 05:50 01/01/19 05:50
--- NOTE | 2019-01-10 11:09 | EKG ---
Test Reason : Blood Pressure : / mmHG Vent. Rate : 128 BPM Atrial Rate : 127 BPM P-R Int : 000 ms QRS Dur : 074 ms QT Int : 272 ms P-R-T Axes : 000 -50 167 degrees QTc Int : 397 ms ATRIAL FIBRILLATION WITH RAPID VENTRICULAR RESPONSE LEFT ANTERIOR FASCICULAR BLOCK NONSPECIFIC T WAVE ABNORMALITY ABNORMAL ECG WHEN COMPARED WITH ECG OF 31-DEC-2018 15:30, VENT. RATE HAS INCREASED BY 46 BPM Confirmed by DEB HATCH MD ([id number]) on 01/10/2019 11:08:30 AM Referred By: Confirmed By:DEB HATCH MD
== END 2019-01-01 21:26 | DRG 308 ==
LOC: JER 13:00 → JERBED 19:00 → J4W 01-01 02:40 → OBSVTOIN 01-01 19:36
PROVIDERS: ADMIT Internal Medicine; ATTEND Internal Medicine
DX: I48.1 Persistent atrial fibrillation (principal); I50.21 Acute systolic (congestive) heart failure; I11.0 Hypertensive heart disease with heart failure; I48.92 Unspecified atrial flutter; R07.89 Other chest pain; I25.10 Atherosclerotic heart disease of native coronary artery without angina pectoris; E78.5 Hyperlipidemia, unspecified; E11.9 Type 2 diabetes mellitus without complications; G20 Parkinson's disease; I25.2 Old myocardial infarction; M48.54XD Collapsed vertebra, not elsewhere classified, thoracic region, subsequent encounter for fracture with routine healing; D73.5 Infarction of spleen; K59.00 Constipation, unspecified; F03.90 Unspecified dementia, unspecified severity, without behavioral disturbance, psychotic disturbance, mood disturbance, and anxiety; Z95.1 Presence of aortocoronary bypass graft; Z95.2 Presence of prosthetic heart valve
CPT/HCPCS: 36415; 71045-TC-FY; 74177-TC; 80053; 82962; 83690; 83735; 83880; 84100; 84484; 85025; 85610; 85730; 93005; 93010; 99285-25; G0378

== ENCOUNTER 2019-02-16 06:19 | Inpatient (IN) | payer OTHER ==
[2019-02-16] MEDS ORDERED: dilTIAZem HCL 50 MG/10 ML - 10 ML VIAL IVPUSH ONE ×4 (06:41→15:52)
[2019-02-16] MEDS ORDERED: dilTIAZem HCL 125 MG/25 ML - 25 ML VIAL ONE ×3 (06:43→13:55)
[2019-02-16] MEDS ORDERED: SODIUM CHLORIDE 0.9% 500 ML INFUS.BAG IV ONE (06:52)
--- NOTE | 2019-02-16 07:23 | PDOC ---
Attending Attestation - Resident Resident Name: Karson Fisher - ED Attending Attestation I have performed the following: I have examined & evaluated the patient, The case was reviewed & discussed with the resident, I agree w/resident's findings & plan, Exceptions are as noted - HPI HPI: 68 yo F history CHF, afib on eliquis, CAD s/p CABG, prior cardiac arrest presents with tachycardia and abd pain, subjective fevers. Denies N/V/D. Denies cp. +SOB. - Physicial Exam PE: GENERAL: Awake, alert, and fully oriented, in no acute distress. Appears chronically ill. HEAD: No signs of trauma EYES: PERRLA, EOMI, sclera anicteric, conjunctiva clear ENT: Auricles normal inspection, hearing grossly normal, nares patent, oropharynx clear without exudates. Very dry mucosa NECK: Normal ROM, supple, no lymphadenopathy, JVD, or masses LUNGS: Slightly labored breathing with abdominal retractions. +Rales at bases B/ L HEART: Regular rate and rhythm, normal S1 and S2, no murmurs, rubs or gallops ABDOMEN: Soft, +tenderness to RUQ and suprapubic area, normoactive bowel sounds. +Guarding, no rebound. No masses EXTREMITIES: Normal range of motion, no edema. No clubbing or cyanosis. No cords, erythema, or tenderness NEUROLOGICAL: Cranial nerves II through XII grossly intact. Normal speech. Motor and sensation intact SKIN: Warm, Dry, normal turgor, no rashes or lesions noted. - Medical Decision Making Pt presents in rapid afib. Poor historian. Signs of CHF on lung exam. Abd noted to be tender. Will obtain CT. Likely admission.
--- NOTE | 2019-02-16 07:34 | PDOC ---
History of Present Illness - General Chief Complaint: Tachycardia Stated Complaint: RAPID HEART BEAT Time Seen by Provider: 02/16/19 07:23 - History of Present Illness Initial Comments: The pt is a 68F w/ a history of Parkinson's, CHF, a-fib, STEMI, CAD s/p CABG, cardiac arrest s/p ROSC, T2DM who presents for evaluation for high heart rate and 2 days of abdominal pain. The pt is a poor historian, but reports 2 days of generalized abdominal pain, associated subjective fevers, and denies N/V/D. She denies dysuria/hematuria. Son's #: [phone] 02/16/19 07:56 Past History - Past Medical History Allergies/Adverse Reactions: Allergies Allergy/AdvReac Type Severity Reaction Status Date / Time No Known Allergies Allergy Verified 02/16/19 06:27 Home Medications: Ambulatory Orders Apixaban [Eliquis] 5 mg PO BID 12/17/18 Aspirin [Ecotrin] 81 mg PO DAILY 12/17/18 Famotidine [Pepcid] 40 mg PO DAILY 12/17/18 Folic Acid 1 mg PO DAILY 12/17/18 Carbidopa/Levodopa 25/100 [Sinemet 25/100 -] 1 each PO QID tablet 12/24/18 Insulin (Levemir) [Levemir Vial] 12 units SQ DAILY@0700 units 12/24/18 Metoprolol Tartrate [Lopressor -] 100 mg PO TID tablet 12/24/18 Valsartan [Diovan] 40 mg PO DAILY tablet 12/24/18 Simvastatin 20 mg PO DAILY 12/31/18 Furosemide [Lasix] 40 mg PO DAILY #30 tablet 01/01/19 Insulin Sliding Scale [Novolog Vial Sliding Scale -] See Protocol SQ ACHS #0 units 01/01/19 Polyethylene Glycol 3350 [Miralax 119 gm Btl -] 17 gm PO BID PRN bottle Sennosides/Docusate Sodium [Pericolace -] 2 tablet PO HS PRN tablet 01/01/19 Anemia: No Asthma: No Cancer: No Cardiac Disorders: Yes (a fib, recent cardiac cath, MV disease) CVA: No COPD: No CHF: Yes Dementia: Yes Diabetes: Yes GI Disorders: No Disorders: No HTN: Yes Hypercholesterolemia: Yes Liver Disease: No Seizures: No Thyroid Disease: No - Surgical History Abdominal Surgery: No Appendectomy: No Cardiac Surgery: Yes (mitral valve clipping.) Cholecystectomy: No Lung Surgery: No Neurologic Surgery: No Orthopedic Surgery: No - Immunization History Immunization Up to Date: Yes - Suicide/Smoking/Psychosocial Hx Smoking History: Never smoked Have you smoked in the past 12 months: No Information on smoking cessation initiated: No Hx Alcohol Use: No Drug/Substance Use Hx: No Substance Use Type: None Hx Substance Use Treatment: No Review of Systems - Review of Systems Able to Perform ROS?: Yes Comments:: GENERAL/CONSTITUTIONAL: No fever or chills. No weakness HEAD, EYES, EARS, NOSE AND THROAT: No change in vision. No ear pain or discharge. No sore throat CARDIOVASCULAR: No shortness of breath RESPIRATORY: Denies cough, hemoptysis GASTROINTESTINAL: No nausea, vomiting, diarrhea or constipation GENITOURINARY: No dysuria, frequency, or change in urination MUSCULOSKELETAL: No joint or muscle swelling or pain. No neck or back pain SKIN: No rash NEUROLOGIC: No headache, vertigo, loss of consciousness, or change in strength/ sensation ENDOCRINE: No increased thirst. No abnormal weight change ALLERGIC/IMMUNOLOGIC: No hives or skin allergy 02/16/19 08:02 Is the patient limited Serbian proficient: No *Physical Exam - Vital Signs Last Vital Signs Temp Pulse Resp BP Pulse Ox 98.2 F 130 H 18 123/85 100 02/16/19 06:20 02/16/19 06:20 02/16/19 06:20 02/16/19 06:20 02/16/19 06:20 - Physical Exam Comments: GENERAL: Awake, alert, and oriented to person/place, in no acute distress HEAD: No signs of trauma, normocephalic, atraumatic EYES: PERRLA, EOMI, sclera anicteric, conjunctiva clear ENT: Hearing grossly normal, nares patent, oropharynx clear without exudates. Poor dentition LUNGS: No distress, speaks full sentences, LLL crackles HEART: Regular rate and irregularly irregular rhythm, normal S1 and S2, no murmurs appreciated, peripheral pulses normal and equal bilaterally ABDOMEN: Soft, RUQ and suprapubic TTP, normoactive bowel sounds. No rebound EXTREMITIES: Normal inspection, Normal range of motion, no edema. No clubbing or cyanosis NEUROLOGICAL: Cranial nerves II through XII grossly intact. Slow speech, no focal sensorimotor deficits SKIN: Warm, Dry 02/16/19 08:03 ED Treatment Course - LABORATORY CBC & Chemistry Diagram: 02/16/19 06:45 02/16/19 06:24 - Medications Given in the ED: ED Medications Discontinued Medications Generic Name Dose Route Start Last Admin Trade Name Everardo PRN Reason Stop Dose Admin Diltiazem HCl 10 mg 02/16/19 06:41 02/16/19 06:46 Cardizem Injection - IVPUSH 02/16/19 06:42 10 mg ONCE ONE Administration Medical Decision Making - Medical Decision Making ED Course Pt s/p Diltiazem and IVF by night team, HR improved to 90s Labs sent ECG CXR Attempted to contact pt's son for further information but no answer. 02/16/19 08:04 No MALICK Trop I neg BNP elevated but at baseline Hyperkalemia to 5.4 No anemia 02/16/19 08:21 CXR w/ evidence pulmonary congestion Will give Lasix 40mg IV once CT A&P w/ distended gallbladder and fecal retention Will give MgCitrate 02/16/19 11:20 INR 5.06, recommend hold Coumadin today 02/16/19 11:23 HR 130s-140s will give Diltiazem 10mg IV once, admitting team notified 02/16/19 13:54 *DC/Admit/Observation/Transfer - Discharge Dispostion Condition at time of disposition: Fair - Referrals - Patient Instructions - Post Discharge Activity
[2019-02-16 07:35] LABS: BASO % 0.7 % (0-2.0); EOS % 0.5 % (0-4.5); HEMATOCRIT 35.4 % (32.4-45.2); HEMOGLOBIN 11.6 GM/dL (10.7-15.3); LYMPH % 19.6 % (8-40); MCH 26.1 pg (25.7-33.7); MCHC 32.7 g/dl (32.0-36.0); MEAN CELL VOLUME 79.9 fl (80-96); MEAN PLT VOLUME 9.1 fl (7.5-11.1); NEUT % 73.2 % (42.8-82.8); PLATELET COUNT 351 K/MM3 (134-434); RBC 4.44 M/mm3 (3.60-5.2); RDW 17.2 % (11.6-15.6); WHITE BLOOD COUNT 11.7 K/mm3 (4.0-10.0)
[2019-02-16 08:02] LABS: PROTHROMBIN TIME (PATIENT) 60.7 SEC (9.7-13.0)
[2019-02-16 08:04] LABS: ACTIVATED PTT 59.6 SECONDS (25.2-36.5)
[2019-02-16 08:14] LABS: ALBUMIN 3.2 g/dl (3.4-5.0); ALK PHOS 82 U/L (45-117); ANION GAP 10 MMOL/L (8-16); BILIRUBIN,TOTAL 1.1 mg/dL (0.2-1); BLOOD UREA NITROGEN 16 mg/dL (7-18); CALCIUM 9.1 mg/dL (8.5-10.1); CHLORIDE 100 mmol/L (98-107); CO2 22 mmol/L (21-32); CREATININE 0.8 mg/dL (0.55-1.3); GLUCOSE,RANDOM 185 mg/dL (74-106); N-TERMINAL BNP 4346.4 pg/ml (5-125); POTASSIUM 5.4 mmol/L (3.5-5.1); SGOT/AST 33 U/L (15-37); SGPT/ALT 12 U/L (13-61); SODIUM 132 mmol/L (136-145); TOT PROT 8.4 g/dl (6.4-8.2)
[2019-02-16 08:40] LABS: INR 5.06 (0.83-1.09)
[2019-02-16 10:09] LABS: URINE APPEARANCE CLEAR; URINE BACTERIA 41.8 /hpf (NEGATIVE); URINE BILIRUBIN NEGATIVE (NEGATIVE); URINE CASTS 0 /lpf (0-8); URINE COLOR YELLOW; URINE GLUCOSE (UA) NEGATIVE (NEGATIVE); URINE KETONE NEGATIVE (NEGATIVE); URINE LEUK ESTERASE NEGATIVE (NEGATIVE); URINE NITRITE NEGATIVE (NEGATIVE); URINE PROTEIN TRACE (NEGATIVE); URINE RBC 23 /hpf (0-4); URINE UROBILINOGEN 0.2 mg/dL (0.2-1.0); URINE WBC 1 /hpf (0-5)
[2019-02-16] MEDS ORDERED: FUROSEMIDE 40 MG/4 ML INJECTABLE VIAL IVPUSH ONE (11:03)
[2019-02-16] MEDS ORDERED: MAGNESIUM CITRATE 300 ML BOTTLE PO ONE (11:22)
--- NOTE | 2019-02-16 11:47 | HP ---
CHIEF COMPLAINT: palpitations and sob HISTORY OF PRESENT ILLNESS: Poor historian due to language barrier. Pt is a 68 y/o F w/ pmhx of, A fib, HTN/HLD, S & D CHF, STEMI with use of IABP (October/2018) , splenic infarct, MR post Sandy-Clip , recently admitted ( dc 01/01), and discharged from SNF 10 days ago, presented to the ED after her son noticed her HR in the 120's-140s. Patient's son administered her meds but patient was still symptomatic with complaints of palpitations and SOB. Patient also complained of RUQ discomfort which then prompted son to take patient to the ER. In the ER patient was found to be in A-fib w/ RVR, and volume overloaded. She was given 40mg IV lasix and a Total 30mg IV cardizem. Patient says palpitations have resolved but still complains of RUQ discomfort. Patient also said she had nausea and 1 episode of vomiting today. Patient denies chest pain, worsening edema, diarrhea, fevers, chills. In ED: 1) CXR: new congestive changes 2) CT AP: mildy distended gallbladder. fecal retention. 3) 40 lasix IV Recent Travel: denies PAST MEDICAL HISTORY: per HPI Social History: Smoking: denies Alcohol: denies Drugs: denies Family History: Allergies No Known Allergies Allergy (Verified 02/16/19 06:27) HOME MEDICATIONS: Home Medications Medication Instructions Recorded Apixaban [Eliquis] 5 mg PO BID 12/17/18 Aspirin [Ecotrin] 81 mg PO DAILY 12/17/18 Famotidine [Pepcid] 40 mg PO DAILY 12/17/18 Folic Acid 1 mg PO DAILY 12/17/18 Carbidopa/Levodopa [Sinemet 1 each PO QID tablet 12/24/18/ -] Insulin (Levemir) [Levemir Vial] 12 units SQ DAILY@0700 units 12/24/18 Metoprolol Tartrate [Lopressor -] 100 mg PO TID tablet 12/24/18 Valsartan [Diovan] 40 mg PO DAILY tablet 12/24/18 Simvastatin 20 mg PO DAILY 12/31/18 Furosemide [Lasix] 40 mg PO DAILY #30 tablet 01/01/19 Insulin Sliding Scale [Novolog See Protocol SQ ACHS #0 units 01/01/19 Vial Sliding Scale -] Polyethylene Glycol 3350 [Miralax 17 gm PO BID PRN bottle 01/01/19 119 gm Btl -] Sennosides/Docusate Sodium 2 tablet PO HS PRN tablet 01/01/19 [Pericolace -] REVIEW OF SYSTEMS CONSTITUTIONAL: Absent: fever, chills, diaphoresis, generalized weakness, malaise, loss of appetite, weight change HEENT: Absent: rhinorrhea, nasal congestion, throat pain, throat swelling, difficulty swallowing, mouth swelling, ear pain, eye pain, visual changes CARDIOVASCULAR: palpitations, irregular heart rate Absent: chest pain, syncope, ightheadedness, peripheral edema RESPIRATORY: sob Absent: cough, dyspnea with exertion, orthopnea, wheezing, stridor, hemoptysis GASTROINTESTINAL: abdominal pain, nausea, 1 episode vomiting Absent: abdominal distension, diarrhea, constipation, melena, hematochezia GENITOURINARY: Absent: dysuria, frequency, urgency, hesitancy, hematuria, flank pain, genital pain MUSCULOSKELETAL: Absent: myalgia, arthralgia, joint swelling, back pain, neck pain SKIN: Absent: rash, itching, pallor PHYSICAL EXAMINATION Vital Signs - 24 hr 02/16/19 02/16/19 02/16/19 06:20 09:14 10:49 Temperature 98.2 F 98.9 F Pulse Rate 130 H Pulse Rate [ 96 H Right] Respiratory 18 17 Rate Blood Pressure 123/85 Blood Pressure 111/76 [Right Arm] O2 Sat by Pulse 100 97 100 Oximetry (%) GENERAL: Awake Alert eating breakfast. HEAD: Atraumatic/ Normocephalic EYES: eomi sclera clear ENT: mmm NECK: supple. LUNGS: Decreased BS @ Bases HEART: Irregularly irregular, s1 s2 ABDOMEN: soft, nd, mildly tender RUQ EXTREMITIES: Trace edema b/l lower extremities NEUROLOGICAL: Cranial nerves II through XII grossly intact. Normal speech PSYCH: Normal mood, normal affect. SKIN: Warm, dry, normal turgor, no rashes or lesions noted. Laboratory Results - last 24 hr 02/16/19 02/16/19 02/16/19 06:24 06:24 06:45 WBC 11.7 H RBC 4.44 Hgb 11.6 Hct 35.4 MCV 79.9 L MCH 26.1 MCHC 32.7 RDW 17.2 H Plt Count 351 MPV 9.1 Absolute Neuts (auto) 8.5 H Neutrophils % 73.2 D Lymphocytes % 19.6 D Monocytes % 6.0 Eosinophils % 0.5 Basophils % 0.7 Nucleated RBC % 0 PT with INR INR PTT (Actin FS) Sodium 132 L Potassium 5.4 H Chloride 100 Carbon Dioxide 22 Anion Gap 10 BUN 16 Creatinine 0.8 Creat Clearance w eGFR 71.33 Random Glucose 185 H Calcium 9.1 Magnesium 2.0 Total Bilirubin 1.1 H AST 33 ALT 12 L Alkaline Phosphatase 82 Creatine Kinase 82 Cancelled Troponin I < 0.02 Cancelled B-Natriuretic Peptide 4346.4 H Total Protein 8.4 H Albumin 3.2 L Urine Color Urine Appearance Urine pH Ur Specific [place] Urine Protein Urine Glucose (UA) Urine Ketones Urine Blood Urine Nitrite Urine Bilirubin Urine Urobilinogen Ur Leukocyte Esterase Urine WBC (Auto) Urine RBC (Auto) Urine Casts (Auto) U Epithel Cells (Auto) Urine Bacteria (Auto) 02/16/19 02/16/19 06:45 09:45 WBC RBC Hgb Hct MCV MCH MCHC RDW Plt Count MPV Absolute Neuts (auto) Neutrophils % Lymphocytes % Monocytes % Eosinophils % Basophils % Nucleated RBC % PT with INR 60.70 H INR 5.06 H* PTT (Actin FS) 59.6 H Sodium Potassium Chloride Carbon Dioxide Anion Gap BUN Creatinine Creat Clearance w eGFR Random Glucose Calcium Magnesium Total Bilirubin AST ALT Alkaline Phosphatase Creatine Kinase Troponin I B-Natriuretic Peptide Total Protein Albumin Urine Color Yellow Urine Appearance Clear Urine pH 7.0 Ur Specific [place] 1.015 Urine Protein Trace Urine Glucose (UA) Negative Urine Ketones Negative Urine Blood 1+ H Urine Nitrite Negative Urine Bilirubin Negative Urine Urobilinogen 0.2 Ur Leukocyte Esterase Negative Urine WBC (Auto) 1 Urine RBC (Auto) 23 Urine Casts (Auto) 0 U Epithel Cells (Auto) 4.0 Urine Bacteria (Auto) 41.8 ASSESSMENT/PLAN: 68 y/o F w/ pmhx of, A fib, HTN/HLD, S & D CHF, STEMI with use of IABP ( October/2018) , Mitral leaflets clipping at [facility], presented with sob and palpitations and was found to have a-fib w RVR #A-fib W RVR -Given total 30mg IV cardizem. -100mg metoprolol tartate until medications confirmed. -Rate still in 130s-150's. -Start Cardizem drip. Discussed with Cardio, in agreement. -On coumadin at home, will need to confirm dose. Was d/c'd on eliquis last time but switched to Coumadin due to history of Splenic infarct. -INR 5.06. Hold dose today -Follow PT/INR in AM -Trop neg x 2 -TSH -Tele monitoring -Cardio consulted: Dr. Gallo #Acute on Chronic S & D CHF exacerbation -CXR: with new congestive changes -Lasix 40mg IV given in ED -Cont Lasix 40mg Daily -BNP 4346, likely at baseline -Strict I/O's -Daily weight #RUQ Abd discomfort -likely in the setting of hepatic congestion -CTAP with mildly distended gallbladder. no other findings -monitor #Supratherapeutic INR -Hold Coumadin today -FU PT/INR in am #HTN -cont home meds once confirmed #Hypothyroidism -AM TSH #FEN -no iv fluids -monitor -Diabetic diet #DVT ppx -hold AC supratherapeutic Dispo: tele monitoring Visit type - Emergency Visit Emergency Visit: Yes ED Registration Date: 02/16/19 Care time: The patient presented to the Emergency Department on the above date and was hospitalized for further evaluation of their emergent condition. - New Patient This patient is new to me today: Yes Date on this admission: 02/16/19 - Critical Care Critical Care patient: No
[2019-02-16] MEDS ORDERED: MAGNESIUM CITRATE 300 ML BOTTLE ONE (12:17)
--- NOTE | 2019-02-16 12:22 | PN ---
Teaching Attending Note Name of Resident: Chente Hurtado ATTENDING PHYSICIAN STATEMENT I saw and evaluated the patient. I reviewed the resident's note and discussed the case with the resident. I agree with the resident's findings and plan as documented. SUBJECTIVE: Shortness of breath and palpitation OBJECTIVE: Vital Signs Temperature 98.9 F 02/16/19 09:14 Pulse Rate 96 H 02/16/19 09:14 Respiratory Rate 17 02/16/19 09:14 Blood Pressure 111/76 02/16/19 09:14 O2 Sat by Pulse Oximetry (%) 100 02/16/19 10:49 Elderly F c/o palpitation and SOB HEENT: Mm dry, no anemia, PERRLA EOMi NECK: JVD +, no Bruit CHEST: B/L crepts CVS: s1S2 Irr Tachycardia, SM+ ABD: Obese mild hepatic tenderness [employer]OM[employer]TER: AOX3 non focal EXT: Trace edema feet, Pulse CBC,CMP WBC 11.7 K/mm3 (4.0-10.0) H 02/16/19 06:45 RBC 4.44 M/mm3 (3.60-5.2) 02/16/19 06:45 Hgb 11.6 GM/dL (10.7-15.3) 02/16/19 06:45 Hct 35.4 % (32.4-45.2) 02/16/19 06:45 MCV 79.9 fl (80-96) L 02/16/19 06:45 MCH 26.1 pg (25.7-33.7) 02/16/19 06:45 MCHC 32.7 g/dl (32.0-36.0) 02/16/19 06:45 RDW 17.2 % (11.6-15.6) H 02/16/19 06:45 Plt Count 351 K/MM3 (134-434) 02/16/19 06:45 MPV 9.1 fl (7.5-11.1) 02/16/19 06:45 Absolute Neuts (auto) 8.5 K/mm3 (1.5-8.0) H 02/16/19 06:45 Neutrophils % 73.2 % (42.8-82.8) D 02/16/19 06:45 Lymphocytes % 19.6 % (8-40) D 02/16/19 06:45 Monocytes % 6.0 % (3.8-10.2) 02/16/19 06:45 Eosinophils % 0.5 % (0-4.5) 02/16/19 06:45 Basophils % 0.7 % (0-2.0) 02/16/19 06:45 Nucleated RBC % 0 % (0-0) 02/16/19 06:45 Sodium 132 mmol/L (136-145) L 02/16/19 06:24 Potassium 5.4 mmol/L (3.5-5.1) H 02/16/19 06:24 Chloride 100 mmol/L (98-107) 02/16/19 06:24 Carbon Dioxide 22 mmol/L (21-32) 02/16/19 06:24 Anion Gap 10 MMOL/L (8-16) 02/16/19 06:24 BUN 16 mg/dL (7-18) 02/16/19 06:24 Creatinine 0.8 mg/dL (0.55-1.3) 02/16/19 06:24 Creat Clearance w eGFR 71.33 (>60) 02/16/19 06:24 Random Glucose 185 mg/dL (74-106) H 02/16/19 06:24 Calcium 9.1 mg/dL (8.5-10.1) 02/16/19 06:24 Magnesium 2.0 mg/dL (1.8-2.4) 02/16/19 06:24 Total Bilirubin 1.1 mg/dL (0.2-1) H 02/16/19 06:24 AST 33 U/L (15-37) 02/16/19 06:24 ALT 12 U/L (13-61) L 02/16/19 06:24 Alkaline Phosphatase 82 U/L (45-117) 02/16/19 06:24 Creatine Kinase 82 U/L (26-192) 02/16/19 06:24 Troponin I < 0.02 ng/ml (0.00-0.05) 02/16/19 06:24 B-Natriuretic Peptide 4346.4 pg/ml (5-125) H 02/16/19 06:24 Total Protein 8.4 g/dl (6.4-8.2) H 02/16/19 06:24 Albumin 3.2 g/dl (3.4-5.0) L 02/16/19 06:24 Active Medications Aspirin (Ecotrin -) 81 mg PO DAILY [facility] Carbidopa/Levodopa (Sinemet 25/100 -) 1 each PO QID [facility] Folic Acid (Folic Acid -) 1 mg PO DAILY [facility] Furosemide (Lasix Injection -) 40 mg IVPUSH DAILY [facility] Diltiazem HCl 125 mg/ Sodium (Chloride) 125 mls @ 5 mls/hr IVPB TITR JESSICA; Protocol Insulin Aspart (Novolog Vial Sliding Scale -) 1 vial SQ ACHS JESSICA; Protocol Insulin Aspart (Novolog Vial Sliding Scale -) 1 vial SQ TIDAC JESSICA; Protocol Insulin Detemir (Levemir Vial) 12 units SQ DAILY@0700 [facility] Metoprolol Tartrate (Lopressor -) 100 mg PO TID [facility] Non-Formulary Medication (Famotidine [Pepcid]) 40 mg PO DAILY [facility] Non-Formulary Medication (Simvastatin [Simvastatin]) 20 mg PO DAILY [facility] Polyethylene Glycol (Miralax (For Daily Use) -) 17 gm PO BID PRN PRN Reason: CONSTIPATION Senna/Docusate Sodium (Pericolace -) 2 tablet PO HS PRN PRN Reason: CONSTIPATION Valsartan (Diovan -) 40 mg PO DAILY [facility] ASSESSMENT AND PLAN: 68 yrs old F lives at home, independent poor historian due to language barrier , recently discharged from [place] on 01/01/2019 to [facility] from there patient went to home 10 days ago , she was doing well last nigh son noticed that she was wheezing HR noted in 120-140, patient took regular meds abut remained symptomatic with SOB , Palpitation and some Rt UQ discomfort came to Ed for evaluation, patient was volume over loaded in afib with RVR admitted for further management, patient has H/O T@DM, HTN, HLD, systoic and diastolic CHF ( borderline reduced LVEF on 2019 ECHO), Atrial fibrillation, severe symptomatic MR with anterior leaflet MVP and posterior leaflet restriction s/p transeptal cauterization surgery 11/20/2018 for placement of single NTR Mitraclip in the A2P2 position.recently admitted with thoracic Vertebrae fracture Ct shows splenic infarct so she was switched to coumadin from Eliquis. Problem List - Problems (1) Atrial fibrillation with rapid ventricular response Assessment/Plan: Resume all home meds patient received IV Diltizem push, cardiology consult , hold coumadin for supratherapeutic INR F/U INR in am. Patient remained with uncontrolled HR cont Metoprolol 100 mg BID and Diltizem drip 5 mg/HR uptiter as per response and Vital parameters, discussed with the cardiology consult agreed with the plan. Code(s): I48.91 - UNSPECIFIED ATRIAL FIBRILLATION (2) Heart failure, chronic, with acute decompensation Assessment/Plan: Decompensated borderline EF last ECHo 12/13/18 no indication to RpT ECHO Lasix 40 mg BID IVSS F/U BMP, Phosphate and magnesium level. Code(s): I50.9 - HEART FAILURE, UNSPECIFIED Qualifiers: Heart failure type: diastolic Qualified Code(s): I50.33 - Acute on chronic diastolic (congestive) heart failure (3) Parkinsonian tremor Assessment/Plan: cont home meds Code(s): G20 - PARKINSON'S DISEASE (4) FH: mitral valve repair Assessment/Plan: at [facility] n 11/20/2018 F/U at cardiology clinic at [facility] Code(s): Z82.49 - FAMILY HX OF ISCHEM HEART DIS AND OTH DIS OF THE CIRC SYS (5) Hypothyroid Assessment/Plan: cont Levothyroxne Code(s): E03.9 - HYPOTHYROIDISM, UNSPECIFIED (6) HTN (hypertension) Assessment/Plan: Well controlled resume Diovan Code(s): I10 - ESSENTIAL (PRIMARY) HYPERTENSION (7) Supratherapeutic INR Assessment/Plan: hold Coumadin F/U INR in am Code(s): R79.1 - ABNORMAL COAGULATION PROFILE (8) Hepatic congestion Assessment/Plan: Due to CHF observe clinically Code(s): K76.1 - CHRONIC PASSIVE CONGESTION OF LIVER (9) T2DM (type 2 diabetes mellitus) Assessment/Plan: cont Levimir diabetic Diet and Correction dose Lispro AC Code(s): E11.9 - TYPE 2 DIABETES MELLITUS WITHOUT COMPLICATIONS
[2019-02-16] MEDS ORDERED: LORazepam 2 MG/ML SDV VIAL IVPUSH ONE (14:39)
[2019-02-16] MEDS ORDERED: METOPROLOL TARTRATE 50 MG TABLET (FP) PO ONE (14:39)
--- NOTE | 2019-02-16 14:54 | CON.CARD ---
Consult Consult Specialty:: Cardiology for Dr. Gallo Referred by:: Hospitalist Medicine Reason for Consultation:: Rapid afib - History of Present Illness Chief Complaint: Dyspnea, palpitations History of Present Illness: The patient is a 68-year-old female with a past medical history significant for CAD s/p CABG, HTN, HLD, diastolic CHF, Cardiac arrest with ROSC, STEMI, Mitraclip ([facility]), Afib on Eliquis, splenic infarct and Parkinson's presents to the emergency department via after her son noticed her HR in the 120's-140s. Patient's son administered her meds but patient was still symptomatic with complaints of palpitations and SOB. Patient also complained of RUQ discomfort which then prompted son to take patient to the ER. In the ER patient was found to be in A-fib w/ RVR, and volume overloaded. She was given 40mg IV lasix and a Total 30mg IV cardizem. Patient says palpitations have resolved but still complains of RUQ discomfort. In ED: 1) CXR: new congestive changes 2) CT AP: mildy distended gallbladder. fecal retention. 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 Cardio/Vascular: Yes: AFIB, CHF (borderline reduced LVEF on 2019 ECHO), HTN - Alcohol/Substance Use Hx Alcohol Use: No - Smoking History Smoking history: Never smoked Have you smoked in the past 12 months: No Home Medications - Allergies Allergies/Adverse Reactions: Allergies Allergy/AdvReac Type Severity Reaction Status Date / Time No Known Allergies Allergy Verified 02/16/19 06:27 - Home Medications Home Medications: Ambulatory Orders Apixaban [Eliquis] 5 mg PO BID 12/17/18 Aspirin [Ecotrin] 81 mg PO DAILY 12/17/18 Famotidine [Pepcid] 40 mg PO DAILY 12/17/18 Folic Acid 1 mg PO DAILY 12/17/18 Carbidopa/Levodopa 25/100 [Sinemet 25/100 -] 1 each PO QID tablet 12/24/18 Insulin (Levemir) [Levemir Vial] 12 units SQ DAILY@0700 units 12/24/18 Metoprolol Tartrate [Lopressor -] 100 mg PO TID tablet 12/24/18 Valsartan [Diovan] 40 mg PO DAILY tablet 12/24/18 Simvastatin 20 mg PO DAILY 12/31/18 Furosemide [Lasix] 40 mg PO DAILY #30 tablet 01/01/19 Insulin Sliding Scale [Novolog Vial Sliding Scale -] See Protocol SQ ACHS #0 units 01/01/19 Polyethylene Glycol 3350 [Miralax 119 gm Btl -] 17 gm PO BID PRN bottle Sennosides/Docusate Sodium [Pericolace -] 2 tablet PO HS PRN tablet 01/01/19 Review of Systems - Review of Systems Cardiovascular: reports: Palpitations, Shortness of Breath Respiratory: reports: SOB Vital Signs: Vital Signs Temperature 98.9 F 02/16/19 09:14 Pulse Rate 121 H 02/16/19 14:01 Respiratory Rate 02/16/19 13:29 Blood Pressure 114/82 02/16/19 14:01 O2 Sat by Pulse Oximetry (%) 94 L 02/16/19 12:46 Constitutional: Yes: No Distress, Calm Neck: Yes: Supple Respiratory: Yes: Regular, Diminished, On Nasal O2 Gastrointestinal: Yes: Normal Bowel Sounds, Soft Cardiovascular: Yes: Tachycardia, Pulse Irregular JVD: No Carotid Bruit: No Heart Sounds: Yes: S1, S2 Murmur: Yes: Systolic Murmur, Grade 1 Edema: Yes - Other Data Labs, Other Data: CBC, BMP 02/16/19 06:45 02/16/19 06:24 INR, PTT INR 5.06 (0.83-1.09) H* 02/16/19 06:45 Troponin, BNP 02/16/19 02/16/19 06:24 06:24 Troponin I < 0.02 Cancelled B-Natriuretic Peptide 4346.4 H Troponin, BNP 02/16/19 02/16/19 06:24 06:24 Troponin I < 0.02 Cancelled B-Natriuretic Peptide 4346.4 H Afib @ 108 Ejection Fraction %: LVEF > or = 40 % Imaging - Results Chest X-ray: Report Reviewed (Congestion) Problem List - Problems (1) S/P mitral valve repair Code(s): Z98.890 - OTHER SPECIFIED POSTPROCEDURAL STATES (2) Heart failure, chronic, with acute decompensation Code(s): I50.9 - HEART FAILURE, UNSPECIFIED Qualifiers: Heart failure type: diastolic Qualified Code(s): I50.33 - Acute on chronic diastolic (congestive) heart failure (3) Supratherapeutic INR Code(s): R79.1 - ABNORMAL COAGULATION PROFILE (4) Atrial fibrillation with rapid ventricular response Code(s): I48.91 - UNSPECIFIED ATRIAL FIBRILLATION (5) Hyperlipidemia Code(s): E78.5 - HYPERLIPIDEMIA, UNSPECIFIED Qualifiers: Hyperlipidemia type: pure hypercholesterolemia Qualified Code(s): E78.00 - Pure hypercholesterolemia, unspecified; E78.0 - Pure hypercholesterolemia Assessment/Plan 12/17/2018 Normal LV size with borderline decreased LVEF 50%, inferior mild HK, normal RV size and fxn, mild CYNDI, mild MR, mod-severe TR RVSP 52 mmHg, mod pulm HTN 1. Acute on chronic diastolic heart failure 2. 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 Persistent atrial fibrillation [id number] score of 4 with RVR on A/C with DOAC's 5. HTN cardiomyopathy 6. DM 7. Hypercholestrolemia 8. Splenic infarct since resolved 9. parkinson's disease 10. Dementia 11. Hyperkalemia 12. Coagulopathy referable to hepatic congestion PLAN: 1. IV diuresis with monitior diuretic response, renal fxn and electrolytes 2. Cardizem gtt for rate-control, continue Lopressor 100 tid, Diovan 40 qd with monitor K 3. Resume A/C with Eliquis once INR<2.0 with caution and close monitoring of CBC , d/c ASA 81 qd w/o active CAD 4. Continue Crestor 10 qd 5. Thank you for consultative opportunity
[2019-02-16] MEDS ORDERED: METOPROLOL TARTRATE 50 MG TABLET (FP) ONE ×2 (15:01→21:28)
[2019-02-16] MEDS ORDERED: LORazepam 2 MG/ML SDV VIAL ONE (15:01)
--- NOTE | 2019-02-16 15:23 | EKG ---
Test Reason : Blood Pressure : / mmHG Vent. Rate : 108 BPM Atrial Rate : 267 BPM P-R Int : 000 ms QRS Dur : 072 ms QT Int : 390 ms P-R-T Axes : 000 -50 259 degrees QTc Int : 522 ms ATRIAL FIBRILLATION WITH RAPID VENTRICULAR RESPONSE LEFT ANTERIOR FASCICULAR BLOCK NONSPECIFIC ST AND T WAVE ABNORMALITY ABNORMAL ECG WHEN COMPARED WITH ECG OF 01-JAN-2019 09:46, ATRIAL FIBRILLATION HAS REPLACED ATRIAL FLUTTER Confirmed by REGINE MICHAEL MD ([id number]) on 02/16/2019 3:22:56 PM Referred By: Confirmed By:REGINE MICHAEL MD
[2019-02-16] MEDS ORDERED: SENNOSIDES/DOCUSATE COMBO (SENNA PLUS) TABLET (UD) PO PRN (15:48)
[2019-02-16] MEDS ORDERED: POLYETHYLENE GLYCOL 3350 119 GM BTL PO PRN (15:48)
[2019-02-16] MEDS: DILTIAZEM INJECTION 125 MG in SODIUM CHLORIDE 100 ML IVPB SCH ×3 (16:00→18:31)
[2019-02-16] MEDS: INSULIN SLIDING SCALE (NOVOLOG) 1 VIAL SQ SCH ×3 (18:16→22:44)
[2019-02-16] MEDS: CARBIDOPA/LEVODOPA 25/100 TABLET (FP) PO SCH ×2 (18:17→21:57)
[2019-02-16] MEDS ORDERED: ATORVASTATIN CA 10 MG TABLET (FP) ONE (21:28)
[2019-02-16] MEDS: ATORVASTATIN CA 10 MG TABLET (FP) PO SCH (21:51)
[2019-02-16] MEDS: METOPROLOL TARTRATE 50 MG TABLET (FP) PO SCH (21:52)
[2019-02-16] MEDS ORDERED: INSULIN (NOVOLOG) ASPART 100 UNITS/ML 10ML VIAL ONE (22:18)
[2019-02-17 06:49] LABS: BASO % 0.8 % (0-2.0); EOS % 0.9 % (0-4.5); HEMATOCRIT 33.3 % (32.4-45.2); HEMOGLOBIN 10.9 GM/dL (10.7-15.3); LYMPH % 16.2 % (8-40); MCH 26.3 pg (25.7-33.7); MCHC 32.8 g/dl (32.0-36.0); MEAN CELL VOLUME 80.2 fl (80-96); MEAN PLT VOLUME 8.9 fl (7.5-11.1); MONO % 8.4 % (3.8-10.2); NEUT % 73.7 % (42.8-82.8); PLATELET COUNT 358 K/MM3 (134-434); RBC 4.15 M/mm3 (3.60-5.2); RDW 16.6 % (11.6-15.6); WHITE BLOOD COUNT 10.3 K/mm3 (4.0-10.0)
[2019-02-17] MEDS ORDERED: METOPROLOL TARTRATE 50 MG TABLET (FP) ONE (06:50)
[2019-02-17] MEDS ORDERED: INSULIN (LEVEMIR) 100 UNITS/ML UNITS SQ ONE (06:52)
[2019-02-17] MEDS: INSULIN (LEVEMIR) 100 UNITS/ML UNITS SQ SCH (07:01)
[2019-02-17 07:04] LABS: INR 3.81 (0.83-1.09); PROTHROMBIN TIME (PATIENT) 45.6 SEC (9.7-13.0)
[2019-02-17] MEDS: INSULIN SLIDING SCALE (NOVOLOG) 1 VIAL SQ SCH ×5 (07:06→21:49)
[2019-02-17] MEDS: METOPROLOL TARTRATE 50 MG TABLET (FP) PO SCH ×3 (07:14→21:48)
[2019-02-17 07:39] LABS: ALBUMIN 2.9 g/dl (3.4-5.0); ALK PHOS 79 U/L (45-117); ANION GAP 9 MMOL/L (8-16); BLOOD UREA NITROGEN 18 mg/dL (7-18); CHLORIDE 103 mmol/L (98-107); CO2 26 mmol/L (21-32); CREATININE 0.7 mg/dL (0.55-1.3); GLUCOSE,RANDOM 147 mg/dL (74-106); MAGNESIUM 2.5 mg/dL (1.8-2.4); PHOSPHOROUS 3.6 mg/dL (2.5-4.9); SGOT/AST 13 U/L (15-37); SGPT/ALT 13 U/L (13-61); SODIUM 137 mmol/L (136-145); TOT PROT 8.1 g/dl (6.4-8.2)
[2019-02-17] MEDS ORDERED: ASPIRIN COATED 81 MG TABLET.EC PO SCH (10:00)
[2019-02-17] MEDS: VALSARTAN 40 MG TABLET (FP) PO SCH (10:25)
[2019-02-17] MEDS: FOLIC ACID 1 MG TABLET (FP) PO SCH (10:25)
[2019-02-17] MEDS: CARBIDOPA/LEVODOPA 25/100 TABLET (FP) PO SCH ×2 (10:26→21:48)
[2019-02-17] MEDS: FUROSEMIDE 40 MG/4 ML INJECTABLE VIAL IVPUSH SCH (10:26)
[2019-02-17] MEDS: RANITIDINE HCL 150 MG TABLET (FP) PO SCH (10:26)
--- NOTE | 2019-02-17 12:51 | PN ---
Physical Exam: SUBJECTIVE: Patient seen and examined at bedside. No acute distress. OBJECTIVE: Vital Signs Period Temp Pulse Resp BP Sys/Castillo Pulse Ox Last 24 Hr 98.2 F 88-151 19-32 96-127/68-93 94-97 GENERAL: [id number], UNKNOWN BASELINE HEAD: Normal with no signs of trauma. EYES: PERRL, extraocular movements intact, sclera anicteric, conjunctiva clear. No ptosis. ENT: Ears normal, nares patent, oropharynx clear without exudates, moist mucous membranes. NECK: Trachea midline, full range of motion, supple. LUNGS: decreased CYNDI, Fine crackles b/b HEART: Regular rate and rhythm, S1, S2 without murmur, rub or gallop. ABDOMEN: Soft, nontender, nondistended, normoactive bowel sounds, no guarding, no rebound, no hepatosplenomegaly, no masses. EXTREMITIES: 2+ pulses, warm, well-perfused, but LE edema B/L NEUROLOGICAL: Cranial nerves II through XII grossly intact. PSYCH: Normal mood, normal affect. SKIN: Warm, dry, normal turgor, no rashes or lesions noted Laboratory Results - last 24 hr 02/16/19 02/16/19 02/16/19 15:10 16:11 21:38 WBC RBC Hgb Hct MCV MCH MCHC RDW Plt Count MPV Absolute Neuts (auto) Neutrophils % Lymphocytes % Monocytes % Eosinophils % Basophils % Nucleated RBC % PT with INR INR Sodium Potassium Chloride Carbon Dioxide Anion Gap BUN Creatinine Creat Clearance w eGFR POC Glucometer 197 252 Random Glucose Calcium Phosphorus Magnesium Total Bilirubin AST ALT Alkaline Phosphatase Troponin I < 0.02 Total Protein Albumin TSH 02/17/19 02/17/19 02/17/19 05:50 05:50 05:50 WBC 10.3 H RBC 4.15 Hgb 10.9 Hct 33.3 MCV 80.2 MCH 26.3 MCHC 32.8 RDW 16.6 H Plt Count 358 MPV 8.9 Absolute Neuts (auto) 7.6 Neutrophils % 73.7 Lymphocytes % 16.2 Monocytes % 8.4 Eosinophils % 0.9 Basophils % 0.8 Nucleated RBC % 0 PT with INR 45.60 H INR 3.81 H Sodium 137 Potassium 4.0 Chloride 103 Carbon Dioxide 26 Anion Gap 9 BUN 18 Creatinine 0.7 Creat Clearance w eGFR 83.21 POC Glucometer Random Glucose 147 H Calcium 9.0 Phosphorus 3.6 Magnesium 2.5 H Total Bilirubin 1.0 AST 13 L ALT 13 Alkaline Phosphatase 79 Troponin I Total Protein 8.1 Albumin 2.9 L TSH 4.76 H 02/17/19 02/17/19 06:36 11:43 WBC RBC Hgb Hct MCV MCH MCHC RDW Plt Count MPV Absolute Neuts (auto) Neutrophils % Lymphocytes % Monocytes % Eosinophils % Basophils % Nucleated RBC % PT with INR INR Sodium Potassium Chloride Carbon Dioxide Anion Gap BUN Creatinine Creat Clearance w eGFR POC Glucometer 169 181 Random Glucose Calcium Phosphorus Magnesium Total Bilirubin AST ALT Alkaline Phosphatase Troponin I Total Protein Albumin TSH Active Medications Generic Name Dose Route Start Last Admin Trade Name Freq PRN Reason Stop Dose Admin Atorvastatin Calcium 10 mg 02/16/19 22:00 02/16/19 21:51 Lipitor - PO 10 mg HS JESSICA Administration Carbidopa/Levodopa 1 each 02/16/19 18:00 02/17/19 10:26 Sinemet 25/100 - PO 1 each QID JESSICA Administration Folic Acid 1 mg 02/17/19 10:00 02/17/19 10:25 Folic Acid - PO 1 mg DAILY JESSICA Administration Furosemide 40 mg 02/17/19 10:00 02/17/19 10:26 Lasix Injection - IVPUSH 40 mg DAILY JESSICA Administration Insulin Aspart 1 vial 02/16/19 16:30 02/17/19 11:48 Novolog Vial Sliding Scale - SQ Not Given ACHS [facility] Protocol Insulin Aspart 1 vial 02/16/19 16:30 02/17/19 11:44 Novolog Vial Sliding Scale - SQ 2 unit TIDAC [facility] Administration Protocol Insulin Detemir 12 units 02/17/19 07:00 02/17/19 07:01 Levemir Vial SQ 12 units DAILY@0700 JESSICA Administration Metoprolol Tartrate 100 mg 02/16/19 22:00 02/17/19 07:14 Lopressor - PO 100 mg TID JESSICA Administration Polyethylene Glycol 17 gm 02/16/19 15:48 Miralax (For Daily Use) - PO BID PRN CONSTIPATION Ranitidine HCl 300 mg 02/17/19 10:00 02/17/19 10:26 Zantac - PO 300 mg DAILY JESSICA Administration Senna/Docusate Sodium 2 tablet 02/16/19 15:48 Pericolace - PO HS PRN CONSTIPATION Valsartan 40 mg 02/17/19 10:00 02/17/19 10:25 Diovan - PO 40 mg DAILY JESSICA Administration ASSESSMENT/PLAN: 68 y/o F w/ pmhx of, A fib, HTN/HLD, S & D CHF, STEMI with use of IABP ( October/2018) , Mitral leaflets clipping at [facility], presented with sob and palpitations and was found to have a-fib w RVR # Acute on chronic diastolic CHF 2/2 A-fib W RVR - rate still rapid , would resume cardizem drip. - c/w 100mg metoprolol tartate TID. -Rate still in 130s-150's. -INR 5.06 >>3.81 >>>>> kEEP on Holding coumadin for now. -Trop neg x 2 -Tele monitoring - C/W Lasix 40mg IV daily. -Strict I/O's -Daily weight #RUQ Abd discomfort -likely in the setting of hepatic congestion -CTAP with mildly distended gallbladder. no other findings -monitor #Supratherapeutic INR -Hold Coumadin today -FU PT/INR in am #HTN -cont home meds once confirmed #Hypothyroidism - f/u with TSH #FEN -no iv fluids -monitor -Diabetic diet #DVT ppx -hold AC supratherapeutic Dispo: tele monitoring Plan was d/w the corporate communications intern / resident in the round. Visit type - Emergency Visit Emergency Visit: Yes ED Registration Date: 02/16/19 Care time: The patient presented to the Emergency Department on the above date and was hospitalized for further evaluation of their emergent condition. - New Patient This patient is new to me today: Yes Date on this admission: 02/17/19 - Critical Care Critical Care patient: No - Discharge Referral Referred to [facility] Med P.C.: No
--- NOTE | 2019-02-17 13:03 | PN ---
Progress Note, Physician History of Present Illness: The patient is a 68-year-old female with a past medical history significant for CAD HTN, HLD, diastolic CHF, Cardiac arrest with ROSC, STEMI, Mitraclip ([facility]), Afib on Eliquis, splenic infarct and Parkinson's presents to the emergency department via after her son noticed her HR in the 120's-140s. Patient's son administered her meds but patient was still symptomatic with complaints of palpitations and SOB. Patient also complained of RUQ discomfort which then prompted son to take patient to the ER. In the ER patient was found to be in A- fib w/ RVR, and volume overloaded. She was given 40mg IV lasix and a Total 30mg IV cardizem. Patient says palpitations have resolved but still complains of RUQ discomfort. In ED: 1) CXR: new congestive changes 2) CT AP: mildy distended gallbladder. fecal retention. 3) 40 lasix IV - Current Medication List Current Medications: Active Medications Atorvastatin Calcium (Lipitor -) 10 mg PO HS [facility] Last Admin: 02/16/19 21:51 Dose: 10 mg Carbidopa/Levodopa (Sinemet 25/100 -) 1 each PO QID [facility] Last Admin: 02/17/19 10:26 Dose: 1 each Folic Acid (Folic Acid -) 1 mg PO DAILY [facility] Last Admin: 02/17/19 10:25 Dose: 1 mg Furosemide (Lasix Injection -) 40 mg IVPUSH DAILY [facility] Last Admin: 02/17/19 10:26 Dose: 40 mg Insulin Aspart (Novolog Vial Sliding Scale -) 1 vial SQ ACHS [facility]; Protocol Last Admin: 02/17/19 11:48 Dose: Not Given Insulin Aspart (Novolog Vial Sliding Scale -) 1 vial SQ TIDAC [facility]; Protocol Last Admin: 02/17/19 11:44 Dose: 2 unit Insulin Detemir (Levemir Vial) 12 units SQ DAILY@0700 [facility] Last Admin: 02/17/19 07:01 Dose: 12 units Metoprolol Tartrate (Lopressor -) 100 mg PO TID [facility] Last Admin: 02/17/19 07:14 Dose: 100 mg Polyethylene Glycol (Miralax (For Daily Use) -) 17 gm PO BID PRN PRN Reason: CONSTIPATION Ranitidine HCl (Zantac -) 300 mg PO DAILY [facility] Last Admin: 02/17/19 10:26 Dose: 300 mg Senna/Docusate Sodium (Pericolace -) 2 tablet PO HS PRN PRN Reason: CONSTIPATION Valsartan (Diovan -) 40 mg PO DAILY [facility] Last Admin: 02/17/19 10:25 Dose: 40 mg - Objective Vital Signs: Vital Signs Temperature 98.2 F 02/16/19 16:45 Pulse Rate 110 H 02/17/19 10:10 Respiratory Rate 22 H 02/17/19 10:10 Blood Pressure 124/81 02/17/19 10:10 O2 Sat by Pulse Oximetry (%) 96 02/17/19 10:10 Eyes: Yes: WNL, Conjunctiva Clear, EOM Intact HENT: Yes: WNL, Atraumatic, Normocephalic Neck: Yes: WNL, Supple, Trachea Midline Cardiovascular: Yes: Pulse Irregular Respiratory: Yes: WNL, Regular, CTA Bilaterally Gastrointestinal: Yes: WNL, Normal Bowel Sounds Genitourinary: Yes: WNL Musculoskeletal: Yes: WNL Extremities: Yes: WNL Edema: No Integumentary: Yes: WNL Neurological: Yes: WNL, Alert, Oriented ...Motor Strength: WNL Psychiatric: Yes: WNL Labs: CBC, BMP 02/17/19 05:50 02/17/19 05:50 INR, PTT INR 3.81 (0.83-1.09) H 02/17/19 05:50 Laboratory Tests 02/16/19 02/16/19 02/16/19 06:24 06:24 06:45 WBC 11.7 H RBC 4.44 Hgb 11.6 Hct 35.4 MCV 79.9 L MCH 26.1 MCHC 32.7 RDW 17.2 H Plt Count 351 MPV 9.1 Absolute Neuts (auto) 8.5 H Neutrophils % 73.2 D Lymphocytes % 19.6 D Monocytes % 6.0 Eosinophils % 0.5 Basophils % 0.7 Nucleated RBC % 0 PT with INR INR PTT (Actin FS) Sodium 132 L Potassium 5.4 H Chloride 100 Carbon Dioxide 22 Anion Gap 10 BUN 16 Creatinine 0.8 Creat Clearance w eGFR 71.33 POC Glucometer Random Glucose 185 H Calcium 9.1 Phosphorus Magnesium 2.0 Total Bilirubin 1.1 H AST 33 ALT 12 L Alkaline Phosphatase 82 Creatine Kinase 82 Cancelled Troponin I < 0.02 Cancelled B-Natriuretic Peptide 4346.4 H Total Protein 8.4 H Albumin 3.2 L TSH Urine Color Urine Appearance Urine pH Ur Specific Garfield Urine Protein Urine Glucose (UA) Urine Ketones Urine Blood Urine Nitrite Urine Bilirubin Urine Urobilinogen Ur Leukocyte Esterase Urine WBC (Auto) Urine RBC (Auto) Urine Casts (Auto) U Epithel Cells (Auto) Urine Bacteria (Auto) 02/16/19 02/16/19 02/16/19 06:45 09:45 15:10 WBC RBC Hgb Hct MCV MCH MCHC RDW Plt Count MPV Absolute Neuts (auto) Neutrophils % Lymphocytes % Monocytes % Eosinophils % Basophils % Nucleated RBC % PT with INR 60.70 H INR 5.06 H* PTT (Actin FS) 59.6 H Sodium Potassium Chloride Carbon Dioxide Anion Gap BUN Creatinine Creat Clearance w eGFR POC Glucometer Random Glucose Calcium Phosphorus Magnesium Total Bilirubin AST ALT Alkaline Phosphatase Creatine Kinase Troponin I < 0.02 B-Natriuretic Peptide Total Protein Albumin TSH Urine Color Yellow Urine Appearance Clear Urine pH 7.0 Ur Specific Garfield 1.015 Urine Protein Trace Urine Glucose (UA) Negative Urine Ketones Negative Urine Blood 1+ H Urine Nitrite Negative Urine Bilirubin Negative Urine Urobilinogen 0.2 Ur Leukocyte Esterase Negative Urine WBC (Auto) 1 Urine RBC (Auto) 23 Urine Casts (Auto) 0 U Epithel Cells (Auto) 4.0 Urine Bacteria (Auto) 41.8 02/16/19 02/16/19 02/17/19 16:11 21:38 05:50 WBC 10.3 H RBC 4.15 Hgb 10.9 Hct 33.3 MCV 80.2 MCH 26.3 MCHC 32.8 RDW 16.6 H Plt Count 358 MPV 8.9 Absolute Neuts (auto) 7.6 Neutrophils % 73.7 Lymphocytes % 16.2 Monocytes % 8.4 Eosinophils % 0.9 Basophils % 0.8 Nucleated RBC % 0 PT with INR INR PTT (Actin FS) Sodium Potassium Chloride Carbon Dioxide Anion Gap BUN Creatinine Creat Clearance w eGFR POC Glucometer 197 252 Random Glucose Calcium Phosphorus Magnesium Total Bilirubin AST ALT Alkaline Phosphatase Creatine Kinase Troponin I B-Natriuretic Peptide Total Protein Albumin TSH Urine Color Urine Appearance Urine pH Ur Specific [place] Urine Protein Urine Glucose (UA) Urine Ketones Urine Blood Urine Nitrite Urine Bilirubin Urine Urobilinogen Ur Leukocyte Esterase Urine WBC (Auto) Urine RBC (Auto) Urine Casts (Auto) U Epithel Cells (Auto) Urine Bacteria (Auto) 02/17/19 02/17/19 02/17/19 05:50 05:50 06:36 WBC RBC Hgb Hct MCV MCH MCHC RDW Plt Count MPV Absolute Neuts (auto) Neutrophils % Lymphocytes % Monocytes % Eosinophils % Basophils % Nucleated RBC % PT with INR 45.60 H INR 3.81 H PTT (Actin FS) Sodium 137 Potassium 4.0 Chloride 103 Carbon Dioxide 26 Anion Gap 9 BUN 18 Creatinine 0.7 Creat Clearance w eGFR 83.21 POC Glucometer 169 Random Glucose 147 H Calcium 9.0 Phosphorus 3.6 Magnesium 2.5 H Total Bilirubin 1.0 AST 13 L ALT 13 Alkaline Phosphatase 79 Creatine Kinase Troponin I B-Natriuretic Peptide Total Protein 8.1 Albumin 2.9 L TSH 4.76 H Urine Color Urine Appearance Urine pH Ur Specific [place] Urine Protein Urine Glucose (UA) Urine Ketones Urine Blood Urine Nitrite Urine Bilirubin Urine Urobilinogen Ur Leukocyte Esterase Urine WBC (Auto) Urine RBC (Auto) Urine Casts (Auto) U Epithel Cells (Auto) Urine Bacteria (Auto) 02/17/19 11:43 WBC RBC Hgb Hct MCV MCH MCHC RDW Plt Count MPV Absolute Neuts (auto) Neutrophils % Lymphocytes % Monocytes % Eosinophils % Basophils % Nucleated RBC % PT with INR INR PTT (Actin FS) Sodium Potassium Chloride Carbon Dioxide Anion Gap BUN Creatinine Creat Clearance w eGFR POC Glucometer 181 Random Glucose Calcium Phosphorus Magnesium Total Bilirubin AST ALT Alkaline Phosphatase Creatine Kinase Troponin I B-Natriuretic Peptide Total Protein Albumin TSH Urine Color Urine Appearance Urine pH Ur Specific Garfield Urine Protein Urine Glucose (UA) Urine Ketones Urine Blood Urine Nitrite Urine Bilirubin Urine Urobilinogen Ur Leukocyte Esterase Urine WBC (Auto) Urine RBC (Auto) Urine Casts (Auto) U Epithel Cells (Auto) Urine Bacteria (Auto) Assessment/Plan 1. Acute on chronic diastolic heart failure 2. 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 Persistent atrial fibrillation [id number] score of 4 with RVR on A/C with DOAC's 5. HTN cardiomyopathy 6. DM 7. Hypercholestrolemia 8. Splenic infarct since resolved 9. parkinson's disease 10. Dementia 11. Hyperkalemia 12. Coagulopathy referable to hepatic congestion PLAN: 1. IV diuresis with monitior diuretic response, renal fxn and electrolytes 2. Cardizem gtt for rate-control, continue Lopressor 100 tid, Diovan 40 qd with monitor K 3. Resume A/C with Eliquis once INR<2.0 with caution and close monitoring of CBC , d/c ASA 81 qd w/o active CAD 4. Continue Crestor 10 qd
--- NOTE | 2019-02-17 14:38 | PN ---
Physical Exam: SUBJECTIVE: Patient seen and examined this AM. Tolerating diet. No new complaints. Remains tachycardic OBJECTIVE: Vital Signs Period Temp Pulse Resp BP Sys/Castillo Pulse Ox Last 24 Hr 98.2 F 88-151 20-23 107-127/68-93 96-97 GENERAL: A&Ox3, NAD HEAD: NCAT EYES: PERRL, EOMI ENT: moist mucous membranes NECK: Supple LUNGS: Diminished breath sounds at the bases, no wheezes, no crackles HEART: Tachycardic, Irregular, S1, S2 without murmur ABDOMEN: Soft, nontender, nondistended, + bowel sounds, no guarding EXTREMITIES: 1+ edema NEUROLOGICAL: Cranial nerves II through XII grossly intact. SKIN: Warm, dry Laboratory Results - last 24 hr 02/16/19 02/16/19 02/16/19 15:10 16:11 21:38 WBC RBC Hgb Hct MCV MCH MCHC RDW Plt Count MPV Absolute Neuts (auto) Neutrophils % Lymphocytes % Monocytes % Eosinophils % Basophils % Nucleated RBC % PT with INR INR Sodium Potassium Chloride Carbon Dioxide Anion Gap BUN Creatinine Creat Clearance w eGFR POC Glucometer 197 252 Random Glucose Calcium Phosphorus Magnesium Total Bilirubin AST ALT Alkaline Phosphatase Troponin I < 0.02 Total Protein Albumin TSH 02/17/19 02/17/19 02/17/19 05:50 05:50 05:50 WBC 10.3 H RBC 4.15 Hgb 10.9 Hct 33.3 MCV 80.2 MCH 26.3 MCHC 32.8 RDW 16.6 H Plt Count 358 MPV 8.9 Absolute Neuts (auto) 7.6 Neutrophils % 73.7 Lymphocytes % 16.2 Monocytes % 8.4 Eosinophils % 0.9 Basophils % 0.8 Nucleated RBC % 0 PT with INR 45.60 H INR 3.81 H Sodium 137 Potassium 4.0 Chloride 103 Carbon Dioxide 26 Anion Gap 9 BUN 18 Creatinine 0.7 Creat Clearance w eGFR 83.21 POC Glucometer Random Glucose 147 H Calcium 9.0 Phosphorus 3.6 Magnesium 2.5 H Total Bilirubin 1.0 AST 13 L ALT 13 Alkaline Phosphatase 79 Troponin I Total Protein 8.1 Albumin 2.9 L TSH 4.76 H 02/17/19 02/17/19 06:36 11:43 WBC RBC Hgb Hct MCV MCH MCHC RDW Plt Count MPV Absolute Neuts (auto) Neutrophils % Lymphocytes % Monocytes % Eosinophils % Basophils % Nucleated RBC % PT with INR INR Sodium Potassium Chloride Carbon Dioxide Anion Gap BUN Creatinine Creat Clearance w eGFR POC Glucometer 169 181 Random Glucose Calcium Phosphorus Magnesium Total Bilirubin AST ALT Alkaline Phosphatase Troponin I Total Protein Albumin TSH Microbiology 02/16/19 09:45 Urine - Urine Clean Catch Urine Culture - Final Active Medications Atorvastatin Calcium (Lipitor -) 10 mg PO HS [facility] Last Admin: 02/16/19 21:51 Dose: 10 mg Carbidopa/Levodopa (Sinemet 25/100 -) 1 each PO QID [facility] Last Admin: 02/17/19 10:26 Dose: 1 each Diltiazem HCl (Cardizem Cd -) 120 mg PO DAILY [facility] Folic Acid (Folic Acid -) 1 mg PO DAILY [facility] Last Admin: 02/17/19 10:25 Dose: 1 mg Furosemide (Lasix Injection -) 40 mg IVPUSH DAILY [facility] Last Admin: 02/17/19 10:26 Dose: 40 mg Insulin Aspart (Novolog Vial Sliding Scale -) 1 vial SQ ACHS [facility]; Protocol Last Admin: 02/17/19 11:48 Dose: Not Given Insulin Aspart (Novolog Vial Sliding Scale -) 1 vial SQ TIDAC [facility]; Protocol Last Admin: 02/17/19 11:44 Dose: 2 unit Insulin Detemir (Levemir Vial) 12 units SQ DAILY@0700 [facility] Last Admin: 02/17/19 07:01 Dose: 12 units Levothyroxine Sodium (Synthroid -) 50 mcg PO DAILY@0700 [facility] Metoprolol Tartrate (Lopressor -) 100 mg PO TID [facility] Last Admin: 02/17/19 07:14 Dose: 100 mg Polyethylene Glycol (Miralax (For Daily Use) -) 17 gm PO BID PRN PRN Reason: CONSTIPATION Ranitidine HCl (Zantac -) 300 mg PO DAILY [facility] Last Admin: 02/17/19 10:26 Dose: 300 mg Senna/Docusate Sodium (Pericolace -) 2 tablet PO HS PRN PRN Reason: CONSTIPATION Valsartan (Diovan -) 40 mg PO DAILY [facility] Last Admin: 02/17/19 10:25 Dose: 40 mg IMAGING: -CXR: New congestive and atelectatic findings since 01/01/2019 -CT A/P with contrast: Mildly distended gallbladder without evidence of cholelithiasis or biliary ductal dilatation. Follow-up sonogram recommended. Fecal retention with no acute pathology within the abdomen or pelvis. -EKG: AFib with RVR, LAFB, VR 108, QTc 522 ASSESSMENT/PLAN: 68 y/o F with PMHx of AFib (on Coumadin) HTN, HLD, S & D CHF, STEMI (with use of IABP October 2018) , Mitral leaflets clipping presented with SOB and palpitations, found to be in AFib with RVR #AFib with RVR, Uncontrolled -Start Cardizem CD 120mg Daily, Will titrate to bring HR to goal. -Continue Metoprolol Tartrate 100mg PO TID -Cardiology consulted, Appreciate Rec's -Trop neg x 2 -Tele #Acute on Chronic CHF exacerbation -Likely due to AFib with RVR -CXR noted above, BNP [id number] -Furosemide 40mg IV Daily -Strict I/O's, Daily weight, Monitor Cr #Supratherapeutic INR, Improving -Hold Coumadin -Follow INR #RUQ discomfort + TBili mildly elevated -In the setting of hepatic congestion -CT A/P noted above -TBili improving, Trend -Monitor for worsening discomfort and signs of obstruction #HTN, Controlled -Metoprolol Tartrate 100mg PO TID, Valsartan 40mg PO Daily #Hypothyroidism -TSH 4.76 -Start Levothyroxine 50mcg PO Daily #HLD -Continue Atorvastatin 10mg PO HS #Parkinsons -Carbidopa/Levodopa (25/100) Daily #DM -ISS BGMs ACHS -Detemir 12u SQ Daily #Constipation -Polyethylene Glycol 17gm PO BID PRN, Senna/Docusate 2 tablet PO HS PRN #FEN -No standing fluids -Hyponatremia, Hyperkalemia improving -Diabetic diet #PPx -DVT: SCDs Visit type - Emergency Visit Emergency Visit: Yes ED Registration Date: 02/16/19 Care time: The patient presented to the Emergency Department on the above date and was hospitalized for further evaluation of their emergent condition. - New Patient This patient is new to me today: Yes Date on this admission: 02/17/19 - Critical Care Critical Care patient: No - Discharge Referral Referred to [facility] Med P.C[facility] No
[2019-02-17 17:08] VITALS: BMI 24.8
[2019-02-17] MEDS: ATORVASTATIN CA 10 MG TABLET (FP) PO SCH (21:45)
[2019-02-18] MEDS: METOPROLOL TARTRATE 50 MG TABLET (FP) PO SCH ×4 (06:23→21:42)
[2019-02-18] MEDS: LEVOTHYROXINE NA 50 MCG TABLET (FP) PO SCH (06:23)
[2019-02-18] MEDS: INSULIN (LEVEMIR) 100 UNITS/ML UNITS SQ SCH (06:23)
[2019-02-18] MEDS: INSULIN SLIDING SCALE (NOVOLOG) 1 VIAL SQ SCH ×7 (06:31→21:30)
[2019-02-18 07:23] LABS: INR 2.57 (0.83-1.09); PROTHROMBIN TIME (PATIENT) 30.6 SEC (9.7-13.0)
[2019-02-18] MEDS: FUROSEMIDE 40 MG/4 ML INJECTABLE VIAL IVPUSH SCH (09:36)
[2019-02-18] MEDS: RANITIDINE HCL 150 MG TABLET (FP) PO SCH (09:36)
[2019-02-18] MEDS: FOLIC ACID 1 MG TABLET (FP) PO SCH (09:36)
[2019-02-18] MEDS: CARBIDOPA/LEVODOPA 25/100 TABLET (FP) PO SCH ×4 (09:36→21:30)
[2019-02-18] MEDS: VALSARTAN 40 MG TABLET (FP) PO SCH (09:36)
--- NOTE | 2019-02-18 10:53 | PN ---
Physical Exam: SUBJECTIVE: Patient seen and examined this AM. No new complaints. HR improved to 70's on tele. OBJECTIVE: Vital Signs Period Temp Pulse Resp BP Sys/Castillo Pulse Ox Last 24 Hr 97.6 F-98.8 F 90-105 18-22 110-124/56-88 94-96 GENERAL: A&Ox3, NAD HEAD: NCAT EYES: PERRL, EOMI ENT: moist mucous membranes NECK: Supple LUNGS: Diminished breath sounds at the bases, no wheezes, no crackles HEART: Irregularly Irregular, S1, S2 without murmur ABDOMEN: Soft, nontender, nondistended, + bowel sounds, no guarding EXTREMITIES: 1+ edema NEUROLOGICAL: Cranial nerves II through XII grossly intact. SKIN: Warm, dry Laboratory Results - last 24 hr 02/17/19 02/17/19 02/18/19 11:43 21:34 05:30 PT with INR 30.60 H INR 2.57 H POC Glucometer 181 169 02/18/19 05:54 PT with INR INR POC Glucometer 135 Active Medications Atorvastatin Calcium (Lipitor -) 10 mg PO HS [facility] Last Admin: 02/17/19 21:45 Dose: 10 mg Carbidopa/Levodopa (Sinemet 25/100 -) 1 each PO QID [facility] Last Admin: 02/18/19 09:36 Dose: 1 each Diltiazem HCl (Cardizem Cd -) 120 mg PO DAILY [facility] Last Admin: 02/18/19 09:36 Dose: 120 mg Folic Acid (Folic Acid -) 1 mg PO DAILY [facility] Last Admin: 02/18/19 09:36 Dose: 1 mg Furosemide (Lasix Injection -) 40 mg IVPUSH DAILY [facility] Last Admin: 02/18/19 09:36 Dose: 40 mg Insulin Aspart (Novolog Vial Sliding Scale -) 1 vial SQ ACHS [facility]; Protocol Last Admin: 02/17/19 21:49 Dose: 2 units Insulin Aspart (Novolog Vial Sliding Scale -) 1 vial SQ TIDAC [facility]; Protocol Last Admin: 02/18/19 06:31 Dose: Not Given Insulin Detemir (Levemir Vial) 12 units SQ DAILY@0700 [facility] Last Admin: 02/18/19 06:23 Dose: 12 units Levothyroxine Sodium (Synthroid -) 50 mcg PO DAILY@0700 [facility] Last Admin: 02/18/19 06:23 Dose: 50 mcg Metoprolol Tartrate (Lopressor -) 100 mg PO TID [facility] Last Admin: 02/18/19 06:23 Dose: 100 mg Polyethylene Glycol (Miralax (For Daily Use) -) 17 gm PO BID PRN PRN Reason: CONSTIPATION Ranitidine HCl (Zantac -) 300 mg PO DAILY [facility] Last Admin: 02/18/19 09:36 Dose: 300 mg Senna/Docusate Sodium (Pericolace -) 2 tablet PO HS PRN PRN Reason: CONSTIPATION Valsartan (Diovan -) 40 mg PO DAILY [facility] Last Admin: 02/18/19 09:36 Dose: 40 mg IMAGING: -CXR: New congestive and atelectatic findings since 01/01/2019 -CT A/P with contrast: Mildly distended gallbladder without evidence of cholelithiasis or biliary ductal dilatation. Follow-up sonogram recommended. Fecal retention with no acute pathology within the abdomen or pelvis. -EKG: AFib with RVR, LAFB, VR 108, QTc 522 ASSESSMENT/PLAN: 68 y/o F with PMHx of AFib (on Coumadin) HTN, HLD, S & D CHF, STEMI (with use of IABP October 2018) , Mitral leaflets clipping presented with SOB and palpitations, found to be in AFib with RVR #AFib with RVR, controlled -Continue Cardizem CD 120mg Daily, Metoprolol Tartrate 100mg PO TID -Cardiology consulted, Appreciate Rec's, Will Resume A/C once INR <2.0; Will discuss with cardio whether DOAC or Warfarin -Tele #Acute on Chronic CHF exacerbation -Likely due to AFib with RVR -Furosemide 40mg IV Daily -Strict I/O's, Daily weight, Monitor Cr #Supratherapeutic INR, Improving -Hold Coumadin -Follow INR #RUQ discomfort + TBili mildly elevated, Improved -In the setting of hepatic congestion -Monitor for worsening discomfort and signs of obstruction #HTN, Controlled -Metoprolol Tartrate 100mg PO TID, Valsartan 40mg PO Daily #Hypothyroidism -Continue Levothyroxine 50mcg PO Daily #HLD -Continue Atorvastatin 10mg PO HS #Parkinsons -Carbidopa/Levodopa (25/100) Daily #DM -ISS BGMs ACHS -Detemir 12u SQ Daily #Constipation -Polyethylene Glycol 17gm PO BID PRN, Senna/Docusate 2 tablet PO HS PRN #FEN -No standing fluids -Hyponatremia, Hyperkalemia improving -Diabetic diet #PPx -DVT: SCDs Visit type - Emergency Visit Emergency Visit: Yes ED Registration Date: 02/17/19 Care time: The patient presented to the Emergency Department on the above date and was hospitalized for further evaluation of their emergent condition. - New Patient This patient is new to me today: No - Critical Care Critical Care patient: No - Discharge Referral Referred to [facility] Med P.C.: No
--- NOTE | 2019-02-18 11:19 | PN ---
Progress Note, Physician Chief Complaint: Pt alert and cooperative; denies pain, dyspnea, Her son is at bedside. History of Present Illness: 68 yo woman (b. [place]), with history systolic (borderline reduced LVEF on 2018 ECHO) CHF, afib on eliquis, CAD (? hx CABG, though no signs on skin or Xray of this procedure), prior cardiac arrest, DM, Parkinson's disease, recent memory lapses, who presents with tachycardia and abd pain, subjective fevers. Denies N/V/D. Denies cp. +SOB. - - Current Medication List Current Medications: Active Medications Atorvastatin Calcium (Lipitor -) 10 mg PO HS [facility] Last Admin: 02/17/19 21:45 Dose: 10 mg Carbidopa/Levodopa (Sinemet 25/100 -) 1 each PO QID [facility] Last Admin: 02/18/19 09:36 Dose: 1 each Diltiazem HCl (Cardizem Cd -) 120 mg PO DAILY [facility] Last Admin: 02/18/19 09:36 Dose: 120 mg Folic Acid (Folic Acid -) 1 mg PO DAILY [facility] Last Admin: 02/18/19 09:36 Dose: 1 mg Furosemide (Lasix Injection -) 40 mg IVPUSH DAILY [facility] Last Admin: 02/18/19 09:36 Dose: 40 mg Insulin Aspart (Novolog Vial Sliding Scale -) 1 vial SQ ACHS [facility]; Protocol Last Admin: 02/17/19 21:49 Dose: 2 units Insulin Aspart (Novolog Vial Sliding Scale -) 1 vial SQ TIDAC [facility]; Protocol Last Admin: 02/18/19 06:31 Dose: Not Given Insulin Detemir (Levemir Vial) 12 units SQ DAILY@0700 [facility] Last Admin: 02/18/19 06:23 Dose: 12 units Levothyroxine Sodium (Synthroid -) 50 mcg PO DAILY@0700 [facility] Last Admin: 02/18/19 06:23 Dose: 50 mcg Metoprolol Tartrate (Lopressor -) 100 mg PO TID [facility] Last Admin: 02/18/19 06:23 Dose: 100 mg Polyethylene Glycol (Miralax (For Daily Use) -) 17 gm PO BID PRN PRN Reason: CONSTIPATION Ranitidine HCl (Zantac -) 300 mg PO DAILY [facility] Last Admin: 02/18/19 09:36 Dose: 300 mg Senna/Docusate Sodium (Pericolace -) 2 tablet PO HS PRN PRN Reason: CONSTIPATION Valsartan (Diovan -) 40 mg PO DAILY [facility] Last Admin: 02/18/19 09:36 Dose: 40 mg - Objective Vital Signs: Vital Signs Temperature 97.9 F 02/18/19 05:25 Pulse Rate 93 H 02/18/19 05:25 Respiratory Rate 18 02/18/19 09:00 Blood Pressure 119/66 02/18/19 05:25 O2 Sat by Pulse Oximetry (%) 94 L 02/18/19 09:00 Constitutional: Yes: Calm Eyes: Yes: WNL HENT: Yes: WNL Neck: Yes: WNL Cardiovascular: Yes: S1 (varies in intensity), S2 Respiratory: Yes: Regular Gastrointestinal: Yes: Soft ...Rectal Exam: Yes: Deferred Genitourinary: No: Anuria Breast(s): Yes: WNL Musculoskeletal: Yes: Muscle Weakness Extremities: Yes: WNL Edema: No Peripheral Pulses WNL: Yes Integumentary: Yes: WNL Neurological: Yes: Alert, Seizure Psychiatric: Yes: Other (memory lapses) Labs: CBC, BMP 02/17/19 05:50 02/17/19 05:50 INR, PTT INR 2.57 (0.83-1.09) H 02/18/19 05:30 Abnormal Lab Results 02/18/19 05:30 PT with INR 30.60 H INR 2.57 H - ....Imaging Chest X-ray: Image Reviewed (CHF) Other: Image Reviewed (telemetry: AF; controlled VR) Problem List - Problems (1) Atrial fibrillation with rapid ventricular response Assessment/Plan: On metoprolol and diltiazem for HR control. Disccused pt with her son: he apparently asked for rivaroxaban to be changed to apixaban because of "lawsuits against Xarelto" and small bruises noted when she was on the medication. He states that, at some point, apixaban was changed to warfarin; he was not aware of her having had a splenic infarct. He was also not aware that warfarin had to be checked periodically (INR) or that possible dietary restrictions would be necessary. He agreed that, unless there were distinct contraindications, apixaban could be restarted (once INR < 2) and warfarin discontinued. F/u prior admission for reason why DOAC was changed to warfarin (?spenic infarct ). Code(s): I48.91 - UNSPECIFIED ATRIAL FIBRILLATION (2) Acute on chronic systolic and diastolic heart failure, NYHA class 1 Assessment/Plan: On metoprolol, valsartan. On furosemide (though son says she does not drink water "at all", and little in the way of other liquids at home). Presently lying flat without JVD, respiratory distress. F/u repeat CXR prior to continuing furosemide. ECHO: borderline reduced LVEF. F/u BUn/Cr, electrolytes, daily weight, Is and Os. Code(s): I50.43 - ACUTE ON CHRONIC COMBINED SYSTOLIC AND DIASTOLIC HRT FAIL (3) HTN (hypertension) Assessment/Plan: On metoprolol, valsartan, diltiazem, furosemide. Code(s): I10 - ESSENTIAL (PRIMARY) HYPERTENSION (4) Hyperlipidemia Assessment/Plan: On atorvastatin. F/u lipid profile. Code(s): E78.5 - HYPERLIPIDEMIA, UNSPECIFIED Qualifiers: Hyperlipidemia type: pure hypercholesterolemia Qualified Code(s): E78.00 - Pure hypercholesterolemia, unspecified; E78.0 - Pure hypercholesterolemia (5) S/P mitral valve repair Assessment/Plan: Clip placed recently at [facility]; f/u records from there (thery may have been obtained while pt was hospitazled here recently). Code(s): Z98.890 - OTHER SPECIFIED POSTPROCEDURAL STATES (6) T2DM (type 2 diabetes mellitus) Assessment/Plan: On antiglycemic agents. On ARB for systolic CHF, BP, DM (renal protection). Code(s): E11.9 - TYPE 2 DIABETES MELLITUS WITHOUT COMPLICATIONS (7) Anemia Code(s): D64.9 - ANEMIA, UNSPECIFIED (8) Hypothyroid Assessment/Plan: On Synthroid. F/u TFTs. Code(s): E03.9 - HYPOTHYROIDISM, UNSPECIFIED (9) Need for assistance due to unsteady gait Code(s): R26.89 - OTHER ABNORMALITIES OF GAIT AND MOBILITY (10) Parkinsonian tremor Assessment/Plan: F/u with nuerologist re Parkinson's (her has severe Parkinson's, according to son) and memory lapses. Code(s): G20 - PARKINSON'S DISEASE (11) Memory deficit Code(s): R41.3 - OTHER AMNESIA (12) Splenic infarct Assessment/Plan: by history; f/u records. Code(s): D73.5 - INFARCTION OF SPLEEN (13) Diabetes Code(s): E11.9 - TYPE 2 DIABETES MELLITUS WITHOUT COMPLICATIONS
--- NOTE | 2019-02-18 11:51 | PN ---
Physical Exam: SUBJECTIVE: Patient seen and examined at bedside. Resting comfortably in bed. OBJECTIVE: Vital Signs Period Temp Pulse Resp BP Sys/Castillo Pulse Ox Last 24 Hr 97.6 F-98.8 F 90-105 18-22 110-124/56-88 94-96 GENERAL: The patient is AA0X2 HEENT: Unremarkable. LUNGS: Breath sounds equal, decreased crackles b/b HEART: Irregularly irregular S1, S2 without murmur, rub or gallop. ABDOMEN: Soft, nontender, nondistended, normoactive bowel sounds, no guarding, no rebound, no hepatosplenomegaly, no masses. EXTREMITIES: 2+ pulses, warm, well-perfused, improving LE edema. NEUROLOGICAL: Cranial nerves II through XII grossly intact. Normal speech, gait not observed. PSYCH: Normal mood, normal affect. nO AGITATION. SKIN: Warm, dry, normal turgor, no rashes or lesions noted Laboratory Results - last 24 hr 02/17/19 02/17/19 02/18/19 11:43 21:34 05:30 PT with INR 30.60 H INR 2.57 H POC Glucometer 181 169 02/18/19 02/18/19 05:54 11:19 PT with INR INR POC Glucometer 135 211 Active Medications Generic Name Dose Route Start Last Admin Trade Name Freq PRN Reason Stop Dose Admin Atorvastatin Calcium 10 mg 02/16/19 22:00 02/17/19 21:45 Lipitor - PO 10 mg HS [facility] Administration Carbidopa/Levodopa 1 each 02/16/19 18:00 02/18/19 09:36 Sinemet 25/100 - PO 1 each QID [facility] Administration Diltiazem HCl 120 mg 02/17/19 21:15 02/18/19 09:36 Cardizem Cd - PO 120 mg DAILY [facility] Administration Folic Acid 1 mg 02/17/19 10:00 02/18/19 09:36 Folic Acid - PO 1 mg DAILY [facility] Administration Furosemide 40 mg 02/17/19 10:00 02/18/19 09:36 Lasix Injection - IVPUSH 40 mg DAILY [facility] Administration Insulin Aspart 1 vial 02/16/19 16:30 02/17/19 21:49 Novolog Vial Sliding Scale - SQ 2 units ACHS [facility] Administration Protocol Insulin Aspart 1 vial 02/16/19 16:30 02/18/19 06:31 Novolog Vial Sliding Scale - SQ Not Given TIDAC [facility] Protocol Insulin Detemir 12 units 02/17/19 07:00 02/18/19 06:23 Levemir Vial SQ 12 units DAILY@0700 [facility] Administration Levothyroxine Sodium 50 mcg 02/18/19 07:00 02/18/19 06:23 Synthroid - PO 50 mcg DAILY@0700 [facility] Administration Metoprolol Tartrate 100 mg 02/16/19 22:00 02/18/19 06:23 Lopressor - PO 100 mg TID [facility] Administration Polyethylene Glycol 17 gm 02/16/19 15:48 Miralax (For Daily Use) - PO BID PRN CONSTIPATION Ranitidine HCl 300 mg 02/17/19 10:00 02/18/19 09:36 Zantac - PO 300 mg DAILY [facility] Administration Senna/Docusate Sodium 2 tablet 02/16/19 15:48 Pericolace - PO HS PRN CONSTIPATION Valsartan 40 mg 02/17/19 10:00 02/18/19 09:36 Diovan - PO 40 mg DAILY [facility] Administration ASSESSMENT/PLAN: 68 y/o F w/ pmhx of, A fib, HTN/HLD, S & D CHF, STEMI with use of IABP ( October/2018) , Mitral leaflets clipping at [facility], presented with sob and palpitations and was found to have a-fib w RVR # Acute on chronic Systolic/ diastolic CHF 2/2 A-fib W RVR - rate is better controlled today with CD ER. - c/w 100mg metoprolol tartate TID. -INR 5.06 >>3.81 >>> 2.5 TODAY >>>>> kEEP on Holding coumadin for now. -Trop neg x 2 -Tele monitoring - C/W Lasix 40mg IV daily >> Can switch to PO. -Strict I/O's -Daily weight #RUQ Abd discomfort >> Resolved. -likely in the setting of hepatic congestion -CTAP with mildly distended gallbladder. no other findings -monitor #Supratherapeutic INR -Hold Coumadin today - trend INR - will resume a/c once INR <2 with Coumadin Vs NOAC. #HTN - Stable with current regimen. #Hypothyroidism - f/u with TSH #FEN -no iv fluids -monitor -Diabetic diet #DVT ppx -hold AC supratherapeutic Dispo: tele monitoring # Functional decline for progressive dementia ( Lewy body ) and Parkinsion's dz Might benefit from STR/SNF placement . PT kirby requested. Plan was d/w the internal control manager / resident in the round. Visit type - Emergency Visit Emergency Visit: Yes ED Registration Date: 02/17/19 Care time: The patient presented to the Emergency Department on the above date and was hospitalized for further evaluation of their emergent condition. - New Patient This patient is new to me today: No - Critical Care Critical Care patient: No - Discharge Referral Referred to [facility] Med P.C.: No
--- NOTE | 2019-02-18 14:22 | EKG ---
Test Reason : Blood Pressure : / mmHG Vent. Rate : 113 BPM Atrial Rate : 333 BPM P-R Int : 000 ms QRS Dur : 074 ms QT Int : 374 ms P-R-T Axes : 000 -58 -84 degrees QTc Int : 513 ms ATRIAL FLUTTER WITH VARIABLE A-V BLOCK LEFT ANTERIOR FASCICULAR BLOCK NONSPECIFIC ST AND T WAVE ABNORMALITY ABNORMAL ECG Confirmed by MD CLEARY MOYSES ([id number]) on 02/18/2019 2:22:20 PM Referred By: SWEETIE ROWLEY Confirmed By:LUIS ALBERTO CLEARY MD
[2019-02-18] MEDS: ATORVASTATIN CA 10 MG TABLET (FP) PO SCH (21:31)
[2019-02-18] MEDS ORDERED: MAG HYDROX/AL HYDROX/SIMETH 30 ML UNIT-DOSE CUP PO ONE (21:43)
[2019-02-19] MEDS: METOPROLOL TARTRATE 50 MG TABLET (FP) PO SCH ×3 (06:46→21:55)
[2019-02-19] MEDS: INSULIN SLIDING SCALE (NOVOLOG) 1 VIAL SQ SCH ×6 (06:46→16:40)
[2019-02-19] MEDS: LEVOTHYROXINE NA 50 MCG TABLET (FP) PO SCH (06:47)
[2019-02-19] MEDS: INSULIN (LEVEMIR) 100 UNITS/ML UNITS SQ SCH (06:47)
[2019-02-19 07:47] LABS: INR 1.61 (0.83-1.09); PROTHROMBIN TIME (PATIENT) 19.1 SEC (9.7-13.0)
--- NOTE | 2019-02-19 09:32 | CON.NEURO ---
Consult - History of Present Illness History of Present Illness: 68 y/o F w/ pmhx of, PD, A fib, HTN/HLD, S & D CHF, STEMI with use of IABP ( October/2018) , splenic infarct, MR post Sandy-Clip , recently admitted (dc 01/01 ), and discharged from SNF 10 days ago, presented to the ED after her son noticed her HR in the 120's-140s. Patient's son administered her meds but patient was still symptomatic with complaints of palpitations and SOB. Patient also complained of RUQ discomfort which then prompted son to take patient to the ER. In the ER patient was found to be in A-fib w/ RVR, and volume overloaded. She was given 40mg IV lasix and a Total 30mg IV cardizem. Patient says palpitations have resolved but still complains of RUQ discomfort. Patient also said she had nausea and 1 episode of vomiting today. Patient denies chest pain, worsening edema, diarrhea, fevers, chills. found to have AFIb and started on AC --on hold for supratX, noted to have cognitive and functional decline MRI BRAIN 12/10 mild white matter changes does not know her neurologist admits to dyskinesias face /mouth - Past Medical History [employer]GER: Yes: Dementia Cardio/Vascular: Yes: AFIB, CHF (borderline reduced LVEF on 2018 ECHO), HTN - Alcohol/Substance Use Hx Alcohol Use: No - Smoking History Smoking history: Never smoked Have you smoked in the past 12 months: No Home Medications - Allergies Allergies/Adverse Reactions: Allergies Allergy/AdvReac Type Severity Reaction Status Date / Time No Known Allergies Allergy Verified 02/16/19 06:27 - Home Medications Home Medications: Ambulatory Orders Aspirin [ASA -] 81 mg PO DAILY 02/18/19 Carbidopa/Levodopa 25/100 [Sinemet 25/100 -] 1 each PO QID 02/18/19 Famotidine [Pepcid] 40 mg PO DAILY 02/18/19 Folic Acid 1 mg PO DAILY 02/18/19 Furosemide [Lasix] 40 mg PO DAILY 02/18/19 Metoprolol Tartrate [Lopressor] 100 mg PO DAILY 02/18/19 Sennosides/Docusate Sodium [Senna Plus Tablet] 2 each PO HS 02/18/19 Simvastatin [Zocor -] 20 mg PO HS 02/18/19 Valsartan [Diovan] 40 mg PO DAILY 02/18/19 Physical Exam-Neuro Vital Signs: Vital Signs Temperature 97.9 F 02/19/19 08:56 Pulse Rate 89 02/19/19 08:56 Respiratory Rate 18 02/19/19 08:56 Blood Pressure 102/61 02/19/19 08:56 O2 Sat by Pulse Oximetry (%) 96 02/19/19 08:38 Constitutional: Yes: Well Nourished, No Distress Labs: CBC, BMP 02/17/19 05:50 02/17/19 05:50 INR, PTT INR 1.61 (0.83-1.09) H 02/19/19 06:29 - Neuro Exam Level Of Consciousness: Yes: Alert (awake and alert, though flat affect and bradykinetic , + facial dyskinesia, no focal weakness, + tremor and cogwheeling , mild ,+ akathisia of legs R >L ) Problem List - Problems (1) Parkinson disease Code(s): G20 - PARKINSON'S DISEASE (2) Atrial fibrillation with rapid ventricular response Code(s): I48.91 - UNSPECIFIED ATRIAL FIBRILLATION Assessment/Plan 68 y/o F w/ pmhx of, PD, A fib, HTN/HLD, S & D CHF, STEMI with use of IABP ( October/2018) , splenic infarct, MR post Sandy-Clip , recently admitted (dc 01/01 ), and discharged from SNF 10 days ago, presented to the ED after her son noticed her HR in the 120's-140s. Patient's son administered her meds but patient was still symptomatic with complaints of palpitations and SOB. Patient also complained of RUQ discomfort which then prompted son to take patient to the ER. In the ER patient was found to be in A-fib w/ RVR, and volume overloaded. She was given 40mg IV lasix and a Total 30mg IV cardizem. Patient says palpitations have resolved but still complains of RUQ discomfort. Patient also said she had nausea and 1 episode of vomiting today. Patient denies chest pain, worsening edema, diarrhea, fevers, chills. found to have AFIb and started on AC --on hold for supratX, noted to have cognitive and functional decline MRI BRAIN 2/19 mild white matter changes does not know her neurologist admits to dyskinesias face /mouth AP : HX of ? PD, appears to have dykinesias from sinemet-- would reduce SINEMET to TID , and then consider further taper if needed along with adding GOCVORI no clear evidence of LBD by HX , she baron have uinderlying subcortical dementia lives with son, will reach out and can FU as outpt DR WAITE
[2019-02-19] MEDS: APIXABAN 5 MG TABLET PO SCH ×2 (10:00→21:54)
[2019-02-19] MEDS: CARBIDOPA/LEVODOPA 25/100 TABLET (FP) PO SCH ×2 (10:00→21:54)
[2019-02-19] MEDS: RANITIDINE HCL 150 MG TABLET (FP) PO SCH (10:00)
[2019-02-19] MEDS: VALSARTAN 40 MG TABLET (FP) PO SCH (10:00)
[2019-02-19] MEDS: FOLIC ACID 1 MG TABLET (FP) PO SCH (10:02)
--- NOTE | 2019-02-19 10:58 | PN ---
Progress Note, Physician History of Present Illness: The patient is a 68-year-old female with a past medical history significant for CAD HTN, HLD, diastolic CHF, Cardiac arrest with ROSC, STEMI, Mitraclip ([facility]), Afib on Eliquis, splenic infarct and Parkinson's presents to the emergency department via after her son noticed her HR in the 120's-140s. Patient's son administered her meds but patient was still symptomatic with complaints of palpitations and SOB. Patient also complained of RUQ discomfort which then prompted son to take patient to the ER. In the ER patient was found to be in A- fib w/ RVR, and volume overloaded. She was given 40mg IV lasix and a Total 30mg IV cardizem. Patient says palpitations have resolved but still complains of RUQ discomfort. In ED: 1) CXR: new congestive changes 2) CT AP: mildy distended gallbladder. fecal retention. 3) 40 lasix IV - Current Medication List Current Medications: Active Medications Apixaban (Eliquis -) 5 mg PO BID [facility] Last Admin: 02/19/19 10:00 Dose: 5 mg Atorvastatin Calcium (Lipitor -) 10 mg PO HS [facility] Last Admin: 02/18/19 21:31 Dose: 10 mg Diltiazem HCl (Cardizem Cd -) 120 mg PO DAILY [facility] Last Admin: 02/19/19 10:00 Dose: 120 mg Folic Acid (Folic Acid -) 1 mg PO DAILY [facility] Last Admin: 02/19/19 10:02 Dose: 1 mg Insulin Aspart (Novolog Vial Sliding Scale -) 1 vial SQ ACHS [facility]; Protocol Last Admin: 02/19/19 06:46 Dose: 2 units Insulin Aspart (Novolog Vial Sliding Scale -) 1 vial SQ TIDAC [facility]; Protocol Last Admin: 02/19/19 06:46 Dose: Not Given Insulin Detemir (Levemir Vial) 12 units SQ DAILY@0700 [facility] Last Admin: 02/19/19 06:47 Dose: 12 units Levothyroxine Sodium (Synthroid -) 50 mcg PO DAILY@0700 [facility] Last Admin: 02/19/19 06:47 Dose: 50 mcg Metoprolol Tartrate (Lopressor -) 100 mg PO TID [facility] Last Admin: 02/19/19 06:46 Dose: 100 mg Polyethylene Glycol (Miralax (For Daily Use) -) 17 gm PO BID PRN PRN Reason: CONSTIPATION Ranitidine HCl (Zantac -) 300 mg PO DAILY [facility] Last Admin: 02/19/19 10:00 Dose: 300 mg Senna/Docusate Sodium (Pericolace -) 2 tablet PO HS PRN PRN Reason: CONSTIPATION Valsartan (Diovan -) 40 mg PO DAILY [facility] Last Admin: 02/19/19 10:00 Dose: 40 mg - Objective Vital Signs: Vital Signs Temperature 97.9 F 02/19/19 08:56 Pulse Rate 89 02/19/19 08:56 Respiratory Rate 18 02/19/19 08:56 Blood Pressure 102/61 02/19/19 08:56 O2 Sat by Pulse Oximetry (%) 96 02/19/19 08:38 Eyes: Yes: WNL, Conjunctiva Clear, EOM Intact HENT: Yes: WNL, Atraumatic, Normocephalic Neck: Yes: WNL, Supple, Trachea Midline Cardiovascular: Yes: WNL, Regular Rate and Rhythm Respiratory: Yes: WNL, Regular, CTA Bilaterally Gastrointestinal: Yes: WNL, Normal Bowel Sounds Genitourinary: Yes: WNL Musculoskeletal: Yes: WNL Extremities: Yes: WNL Edema: No Integumentary: Yes: WNL Neurological: Yes: WNL, Alert, Oriented ...Motor Strength: WNL Psychiatric: Yes: WNL Labs: CBC, BMP 02/17/19 05:50 02/17/19 05:50 INR, PTT INR 1.61 (0.83-1.09) H 02/19/19 06:29 Assessment/Plan - Problems (1) Atrial fibrillation with rapid ventricular response Assessment/Plan: On metoprolol and diltiazem for HR control. Disccused pt with her son: he apparently asked for rivaroxaban to be changed to apixaban because of "lawsuits against Xarelto" and small bruises noted when she was on the medication. He states that, at some point, apixaban was changed to warfarin; he was not aware of her having had a splenic infarct. He was also not aware that warfarin had to be checked periodically (INR) or that possible dietary restrictions would be necessary. He agreed that, unless there were distinct contraindications, apixaban could be restarted (once INR < 2) and warfarin discontinued. F/u prior admission for reason why DOAC was changed to warfarin (?spenic infarct ). Code(s): I48.91 - UNSPECIFIED ATRIAL FIBRILLATION (2) Acute on chronic systolic and diastolic heart failure, NYHA class 1 Assessment/Plan: On metoprolol, valsartan. On furosemide (though son says she does not drink water "at all", and little in the way of other liquids at home). Presently lying flat without JVD, respiratory distress. F/u repeat CXR prior to continuing furosemide. ECHO: borderline reduced LVEF. F/u BUn/Cr, electrolytes, daily weight, Is and Os. Code(s): I50.43 - ACUTE ON CHRONIC COMBINED SYSTOLIC AND DIASTOLIC HRT FAIL (3) HTN (hypertension) Assessment/Plan: On metoprolol, valsartan, diltiazem, furosemide. Code(s): I10 - ESSENTIAL (PRIMARY) HYPERTENSION (4) Hyperlipidemia Assessment/Plan: On atorvastatin. F/u lipid profile. Code(s): E78.5 - HYPERLIPIDEMIA, UNSPECIFIED Qualifiers: Hyperlipidemia type: pure hypercholesterolemia Qualified Code(s): E78.00 - Pure hypercholesterolemia, unspecified; E78.0 - Pure hypercholesterolemia (5) S/P mitral valve repair Assessment/Plan: Clip placed recently at [facility]; f/u records from there (thery may have been obtained while pt was hospitazled here recently). Code(s): Z98.890 - OTHER SPECIFIED POSTPROCEDURAL STATES (6) T2DM (type 2 diabetes mellitus) Assessment/Plan: On antiglycemic agents. On ARB for systolic CHF, BP, DM (renal protection). Code(s): E11.9 - TYPE 2 DIABETES MELLITUS WITHOUT COMPLICATIONS (7) Anemia Code(s): D64.9 - ANEMIA, UNSPECIFIED (8) Hypothyroid Assessment/Plan: On Synthroid. F/u TFTs. Code(s): E03.9 - HYPOTHYROIDISM, UNSPECIFIED (9) Need for assistance due to unsteady gait Code(s): R26.89 - OTHER ABNORMALITIES OF GAIT AND MOBILITY (10) Parkinsonian tremor Assessment/Plan: F/u with nuerologist re Parkinson's (her has severe Parkinson's, according to son) and memory lapses. Code(s): G20 - PARKINSON'S DISEASE (11) Memory deficit Code(s): R41.3 - OTHER AMNESIA (12) Splenic infarct Assessment/Plan: by history; f/u records. Code(s): D73.5 - INFARCTION OF SPLEEN (13) Diabetes Code(s): E11.9 - TYPE 2 DIABETES MELLITUS WITHOUT COMPLICATIONS
--- NOTE | 2019-02-19 15:16 | PN ---
Physical Exam: SUBJECTIVE: Patient seen and examined this AM. No new complaints. No acute overnight events. OBJECTIVE: Vital Signs Period Temp Pulse Resp BP Sys/Castillo Pulse Ox Last 24 Hr 97.7 F-98.3 F 63-110 17-20 98-120/53-67 96-98 GENERAL: A&Ox3, NAD HEAD: NCAT EYES: PERRL, EOMI ENT: moist mucous membranes NECK: Supple LUNGS: Diminished breath sounds at the bases, no wheezes, no crackles HEART: Irregularly Irregular, S1, S2 without murmur ABDOMEN: Soft, nontender, nondistended, + bowel sounds, no guarding EXTREMITIES: 1+ edema NEUROLOGICAL: Cranial nerves II through XII grossly intact. SKIN: Warm, dry Laboratory Results - last 24 hr 02/18/19 02/18/19 02/19/19 16:31 21:29 06:29 PT with INR 19.10 H INR 1.61 H POC Glucometer 154 207 02/19/19 02/19/19 06:32 11:26 PT with INR INR POC Glucometer 158 262 Microbiology 02/16/19 09:45 Urine - Urine Clean Catch Urine Culture - Final Active Medications Apixaban (Eliquis -) 5 mg PO BID [facility] Last Admin: 02/19/19 10:00 Dose: 5 mg Atorvastatin Calcium (Lipitor -) 10 mg PO HS [facility] Last Admin: 02/18/19 21:31 Dose: 10 mg Diltiazem HCl (Cardizem Cd -) 120 mg PO DAILY [facility] Last Admin: 02/19/19 10:00 Dose: 120 mg Folic Acid (Folic Acid -) 1 mg PO DAILY [facility] Last Admin: 02/19/19 10:02 Dose: 1 mg Insulin Aspart (Novolog Vial Sliding Scale -) 1 vial SQ ACHS [facility]; Protocol Last Admin: 02/19/19 11:30 Dose: 6 units Insulin Aspart (Novolog Vial Sliding Scale -) 1 vial SQ TIDAC [facility]; Protocol Last Admin: 02/19/19 11:31 Dose: Not Given Insulin Detemir (Levemir Vial) 12 units SQ DAILY@0700 [facility] Last Admin: 02/19/19 06:47 Dose: 12 units Levothyroxine Sodium (Synthroid -) 50 mcg PO DAILY@0700 [facility] Last Admin: 02/19/19 06:47 Dose: 50 mcg Metoprolol Tartrate (Lopressor -) 100 mg PO TID [facility] Last Admin: 02/19/19 13:46 Dose: 100 mg Polyethylene Glycol (Miralax (For Daily Use) -) 17 gm PO BID PRN PRN Reason: CONSTIPATION Ranitidine HCl (Zantac -) 300 mg PO DAILY [facility] Last Admin: 02/19/19 10:00 Dose: 300 mg Senna/Docusate Sodium (Pericolace -) 2 tablet PO HS PRN PRN Reason: CONSTIPATION Valsartan (Diovan -) 40 mg PO DAILY [facility] Last Admin: 02/19/19 10:00 Dose: 40 mg IMAGING: -CXR: New congestive and atelectatic findings since 01/01/2019 -CT A/P with contrast: Mildly distended gallbladder without evidence of cholelithiasis or biliary ductal dilatation. Follow-up sonogram recommended. Fecal retention with no acute pathology within the abdomen or pelvis. -EKG: AFib with RVR, LAFB, VR 108, QTc 522 ASSESSMENT/PLAN: 68 y/o F with PMHx of AFib (on Coumadin) HTN, HLD, S & D CHF, STEMI (with use of IABP October 2018) , Mitral leaflets clipping presented with SOB and palpitations, found to be in AFib with RVR #AFib with RVR, controlled -Continue Cardizem CD 120mg Daily, Metoprolol Tartrate 100mg PO TID -Start Apixaban 5mg PO BID -Cardiology consulted, Appreciate Rec's -Hematology (Dr. Reddy) consulted to determine the use of DOAC with hx of splenic infarct -Tele #Acute on Chronic CHF exacerbation -Likely due to AFib with RVR -Furosemide 40mg IV Daily -Strict I/O's, Daily weight, Monitor Cr #Supratherapeutic INR, Improving -INR now at goal, Resume AC as per cardio #RUQ discomfort + TBili mildly elevated, Improved -In the setting of hepatic congestion -Monitor for worsening discomfort and signs of obstruction #HTN, Controlled -Metoprolol Tartrate 100mg PO TID, Valsartan 40mg PO Daily #Hypothyroidism -Will need to have TSH rechecked as outpatient #HLD -Continue Atorvastatin 10mg PO HS #Parkinsons -Carbidopa/Levodopa () decreased to TID -Neurology (Dr. Lassiter) Consulted, Appreciate rec's #DM -ISS BGMs ACHS -Detemir 12u SQ Daily #Constipation -Polyethylene Glycol 17gm PO BID PRN, Senna/Docusate 2 tablet PO HS PRN #FEN -No standing fluids -Hyponatremia, Hyperkalemia improving -Diabetic diet #PPx -DVT: SCDs Visit type - Emergency Visit Emergency Visit: Yes ED Registration Date: 02/17/19 Care time: The patient presented to the Emergency Department on the above date and was hospitalized for further evaluation of their emergent condition. - New Patient This patient is new to me today: No - Critical Care Critical Care patient: No - Discharge Referral Referred to [facility] Med P.C.: No
[2019-02-19] MEDS ORDERED: MAG HYDROX/AL HYDROX/SIMETH 30 ML UNIT-DOSE CUP PO ONE (15:57)
--- NOTE | 2019-02-19 18:57 | PN ---
Teaching Attending Note Name of Resident: Cathy Martinez ATTENDING PHYSICIAN STATEMENT I saw and evaluated the patient. I reviewed the resident's note and discussed the case with the resident. I agree with the resident's findings and plan as documented. SUBJECTIVE: No fever or chills. feels SOB. on O2 2.5 L . no HERNANDES . no CP . no palpitations. feels weak and tired OBJECTIVE: NAD, awake, alert, cooperative HEENT:MMM, no JVD. CV: RRR, no MRG, no JVD Lungs: decreased breath sounds at bases with crackles at R base Abd: soft, NT, ND , NL BS Ext : no edema or erythema, no tenderness ASSESSMENT AND PLAN: 68 y/o lady with h/o recent MV clipping ,Parkinson's, HTN, DM, HLD, systolic CHF, STEMI, reported splenic infarct?, A fib,recent cath at [facility] ( unknown results or procedure), she presented with SOb and palpitations. she was found to be in A fib with RVR 1- A fib with RVR: HR in 70s at time of evaluation , but was tachy over night. - cont BB - cont cardizem. - eliquis was started today for AC ( was on coumadin since 01/06/19 ) . Son is not aware on a splenic infarct. records need to be obtained - will consult heme and ask if eliquis is indicated if splenic infarct is from A fib ( not vein thrombosis, or malignancy , or other reasons ) - dc synthroid 2- acute on chronic systolic heart failure. cont to be SOB and requires o2. - will cont IV lasix - will try to taper off O2. maybe we can switch to po lasix soon - cont ARB , and BB 3- DM : cont levemir and SSI 4- slightly elevated TSH. previous values reviewed. was started on synthroid this admission. - dc synthroid in setting of A fib /RVR and no confirmation of hypothyroidism. - repeat TFTs as out tp 5- Dyskinesia: Sinemet was reduced 6- HLOC . if able to switch to po lasix, and Anticoagulation is figured out. can be dc tomorrow
--- NOTE | 2019-02-19 19:41 | CONSULT ---
Consultation: REQUESTING PROVIDER: CONSULT REQUEST: We have been asked to medically evaluate this patient for ( specify). HISTORY OF PRESENT ILLNESS: 68 y/o F w/sig PMH of Afib, HTN, HLD, S & D CHF, STEMI, and splenic infarct who was found to be in Afib w/RVR. She currently c/o wanting to go to the bathroom but no other complaints otherwise. Other hx difficult to obtain due to some dementia. Heme has been consulted for anticoagulation recommendation. REVIEW OF SYSTEMS: unable to obtain due to dementia PHYSICAL EXAMINATION Vital Signs - 24 hr 02/18/19 02/18/19 02/19/19 21:00 22:00 02:00 Temperature 98.3 F 98 F Pulse Rate 90 86 Respiratory 18 18 20 Rate Blood Pressure 98/53 L 105/61 O2 Sat by Pulse 98 Oximetry (%) 02/19/19 02/19/19 02/19/19 06:00 08:38 08:56 Temperature 97.7 F 97.9 F Pulse Rate 110 H 89 Respiratory 18 18 18 Rate Blood Pressure 117/62 102/61 O2 Sat by Pulse 96 Oximetry (%) 02/19/19 02/19/19 02/19/19 13:45 14:30 18:00 Temperature 98.0 F 98.2 F 98.2 F Pulse Rate 94 H 87 68 Respiratory 20 18 18 Rate Blood Pressure 119/67 125/62 111/59 L O2 Sat by Pulse Oximetry (%) GENERAL: Awake, alert, and fully oriented EYES: extraocular movements intact, sclera anicteric, conjunctiva clear. No lid lag. EARS, NOSE, THROAT: Ears normal, nares patent LUNGS: Breath sounds equal, clear to auscultation bilaterally. HEART: irregularly irregular, normal S1 and S2 ABDOMEN: Soft, nontender, not distended, normoactive bowel sounds LOWER EXTREMITIES: warm, well-perfused. NEUROLOGICAL: Dementia PSYCHIATRIC: Cooperative. SKIN: Warm, dry Laboratory Results - last 24 hr 02/18/19 02/19/19 02/19/19 21:29 06:29 06:32 PT with INR 19.10 H INR 1.61 H POC Glucometer 207 158 02/19/19 02/19/19 11:26 16:38 PT with INR INR POC Glucometer 262 118 Active Medications Generic Name Dose Route Start Last Admin Trade Name Freq PRN Reason Stop Dose Admin Apixaban 5 mg 02/19/19 10:00 02/19/19 10:00 Eliquis - PO 5 mg BID JESSICA Administration Atorvastatin Calcium 10 mg 02/16/19 22:00 02/18/19 21:31 Lipitor - PO 10 mg HS JESSICA Administration Carbidopa/Levodopa 1 each 02/19/19 22:00 Sinemet 25/100 - PO TID [facility] Diltiazem HCl 120 mg 02/17/19 21:15 02/19/19 10:00 Cardizem Cd - PO 120 mg DAILY [facility] Administration Folic Acid 1 mg 02/17/19 10:00 02/19/19 10:02 Folic Acid - PO 1 mg DAILY [facility] Administration Insulin Aspart 1 vial 02/16/19 16:30 02/19/19 16:40 Novolog Vial Sliding Scale - SQ Not Given TIDAC [facility] Protocol Insulin Detemir 12 units 02/17/19 07:00 02/19/19 06:47 Levemir Vial SQ 12 units DAILY@0700 [facility] Administration Metoprolol Tartrate 100 mg 02/16/19 22:00 02/19/19 13:46 Lopressor - PO 100 mg TID [facility] Administration Polyethylene Glycol 17 gm 02/16/19 15:48 Miralax (For Daily Use) - PO BID PRN CONSTIPATION Ranitidine HCl 300 mg 02/17/19 10:00 02/19/19 10:00 Zantac - PO 300 mg DAILY [facility] Administration Senna/Docusate Sodium 2 tablet 02/16/19 15:48 Pericolace - PO HS PRN CONSTIPATION Valsartan 40 mg 02/17/19 10:00 02/19/19 10:00 Diovan - PO 40 mg DAILY [facility] Administration ASSESSMENT/PLAN: 68 y/o F w/sig PMH of Afib, HTN, HLD, S & D CHF, STEMI, and splenic infarct. Heme consulted for AC recommendation. Afib Splenic infarct -Would recommend Warfarin for anticoagulation as there is no literature currently available for efficacy of NoACs in splenic infarcts. Dispo: We will continue to follow the patient. Thank you for this consultative opportunity. Visit type - Emergency Visit Emergency Visit: Yes ED Registration Date: 02/17/19 Care time: The patient presented to the Emergency Department on the above date and was hospitalized for further evaluation of their emergent condition. - New Patient This patient is new to me today: Yes Date on this admission: 02/19/19 - Critical Care Critical Care patient: No
--- NOTE | 2019-02-19 19:52 | PN ---
Teaching Attending Note Name of Resident: Naldo Lauren ATTENDING PHYSICIAN STATEMENT I saw and evaluated the patient. I reviewed the resident's note and discussed the case with the resident. I agree with the resident's findings and plan as documented. SUBJECTIVE: Patient seen and examined Last Vital Signs Temp Pulse Resp BP Pulse Ox 98.2 F 68 18 111/59 L 96 02/19/19 18:00 02/19/19 18:00 02/19/19 18:00 02/19/19 18:00 02/19/19 08:38 HEENT: MALVIN, EOM Intact Oropharynx: No thrush, No mucositis Neck: Supple Nodes: Without adenopathy Breasts: Without masses Cor: RSR, No murmurs, No gallops Lungs: Clear to P&A Abd: Soft, Normal bowel sounds, No organomegaly Ext:No significant edema Skin: No rashes, Integument intact CBC, BMP 02/17/19 05:50 02/17/19 05:50 OBJECTIVE: Impression: Recommend coumadin as standard for treatment in absence of data for NOAC's in splenic infarcts. ASSESSMENT AND PLAN:
[2019-02-19] MEDS: ATORVASTATIN CA 10 MG TABLET (FP) PO SCH (21:54)
[2019-02-20] MEDS: CARBIDOPA/LEVODOPA 25/100 TABLET (FP) PO SCH ×3 (05:21→21:53)
[2019-02-20] MEDS: METOPROLOL TARTRATE 50 MG TABLET (FP) PO SCH ×3 (05:23→21:54)
[2019-02-20] MEDS: INSULIN (LEVEMIR) 100 UNITS/ML UNITS SQ SCH (06:02)
[2019-02-20] MEDS: INSULIN SLIDING SCALE (NOVOLOG) 1 VIAL SQ SCH ×3 (06:02→18:02)
[2019-02-20 10:10] LABS: INR 1.74 (0.83-1.09); PROTHROMBIN TIME (PATIENT) 20.7 SEC (9.7-13.0)
[2019-02-20 10:13] LABS: ACTIVATED PTT 41.7 SECONDS (25.2-36.5)
[2019-02-20] MEDS: VALSARTAN 40 MG TABLET (FP) PO SCH (10:48)
[2019-02-20] MEDS: RANITIDINE HCL 150 MG TABLET (FP) PO SCH (10:49)
[2019-02-20] MEDS: FOLIC ACID 1 MG TABLET (FP) PO SCH (10:49)
[2019-02-20] MEDS: APIXABAN 5 MG TABLET PO SCH (10:49)
--- NOTE | 2019-02-20 11:04 | PN ---
Physical Exam: SUBJECTIVE: Patient seen and examined this AM. No new complaints. Able to ambulate to the restroom and tolerating diet. No acute overnight events. OBJECTIVE: Vital Signs Period Temp Pulse Resp BP Sys/Castillo Pulse Ox Last 24 Hr 98.0 F-98.5 F 68-94 18-20 109-125/57-67 97 GENERAL: A&Ox3, NAD HEAD: NCAT EYES: PERRL, EOMI ENT: moist mucous membranes NECK: Supple LUNGS: Diminished breath sounds at the bases, no wheezes, no crackles HEART: Irregularly Irregular, S1, S2 without murmur ABDOMEN: Soft, nontender, nondistended, + bowel sounds, no guarding EXTREMITIES: 1+ edema NEUROLOGICAL: Cranial nerves II through XII grossly intact. SKIN: Warm, dry Laboratory Results - last 24 hr 02/19/19 02/19/19 02/19/19 11:26 16:38 21:56 PT with INR INR PTT ([place] FS) POC Glucometer 262 118 146 02/20/19 02/20/19 05:25 09:35 PT with INR 20.70 H INR 1.74 H PTT (Actin FS) 41.7 H POC Glucometer 170 Microbiology 02/16/19 09:45 Urine - Urine Clean Catch Urine Culture - Final Active Medications Atorvastatin Calcium (Lipitor -) 10 mg PO HS [facility] Last Admin: 02/19/19 21:54 Dose: 10 mg Carbidopa/Levodopa (Sinemet 25/100 -) 1 each PO TID [facility] Last Admin: 02/20/19 05:21 Dose: 1 each Diltiazem HCl (Cardizem Cd -) 120 mg PO DAILY [facility] Last Admin: 02/20/19 10:49 Dose: 120 mg Enoxaparin Sodium (Lovenox -) 60 mg SQ ONCE [facility]ESS[facility] Folic Acid (Folic Acid -) 1 mg PO DAILY [facility] Last Admin: 02/20/19 10:49 Dose: 1 mg Insulin Aspart (Novolog Vial Sliding Scale -) 1 vial SQ TIDAC [facility]; Protocol Last Admin: 02/20/19 06:02 Dose: 2 unit Insulin Detemir (Levemir Vial) 12 units SQ DAILY@0700 [facility] Last Admin: 02/20/19 06:02 Dose: 12 units Metoprolol Tartrate (Lopressor -) 100 mg PO TID [facility] Last Admin: 02/20/19 05:23 Dose: 100 mg Polyethylene Glycol (Miralax (For Daily Use) -) 17 gm PO BID PRN PRN Reason: CONSTIPATION Ranitidine HCl (Zantac -) 300 mg PO DAILY [facility] Last Admin: 02/20/19 10:49 Dose: 300 mg Senna/Docusate Sodium (Pericolace -) 2 tablet PO HS PRN PRN Reason: CONSTIPATION Valsartan (Diovan -) 40 mg PO DAILY [facility] Last Admin: 02/20/19 10:48 Dose: 40 mg Warfarin Sodium (Coumadin -) 5 mg PO NOW ONE Stop: 02/20/19 10:48 Warfarin Sodium (Coumadin -) 5 mg PO DAILY@1800 [facility] IMAGING: -CXR: New congestive and atelectatic findings since 01/01/2019 -CT A/P with contrast: Mildly distended gallbladder without evidence of cholelithiasis or biliary ductal dilatation. Follow-up sonogram recommended. Fecal retention with no acute pathology within the abdomen or pelvis. -EKG: AFib with RVR, LAFB, VR 108, QTc 522 ASSESSMENT/PLAN: 68 y/o F with PMHx of AFib (on Coumadin) HTN, HLD, S & D CHF, STEMI (with use of IABP October 2018) , Mitral leaflets clipping presented with SOB and palpitations, found to be in AFib with RVR #AFib with RVR, controlled -Continue Cardizem CD 120mg Daily, Metoprolol Tartrate 100mg PO TID -Cardiology consulted, Hematology consulted, Appreciate rec's -D/C Noac; Give one dose Lovenox (1mg/kg) now and Warfarin 5mg PO Daily to begin today--Discussed with Dr. Cifuentes -Tele -Monitor INR with Goal of 2-3 #Acute on Chronic CHF exacerbation, Now euvolemic -Likely due to AFib with RVR -Transition to PO Furosemide 40mg Daily -Strict I/O's, Daily weight, Monitor Cr #Supratherapeutic INR, Resolved -Now Subtherapeutic, Resume AC noted above #RUQ discomfort + TBili mildly elevated, Improved -In the setting of hepatic congestion -Monitor for worsening discomfort and signs of obstruction #HTN, Controlled -Metoprolol Tartrate 100mg PO TID, Valsartan 40mg PO Daily #Hypothyroidism -Will need to have TSH rechecked as outpatient #HLD -Continue Atorvastatin 10mg PO HS #Parkinsons -Carbidopa/Levodopa (25/) TID -Neurology (Dr. Lassiter) Consulted, Appreciate rec's #DM -ISS BGMs ACHS -Detemir 12u SQ Daily #Constipation -Polyethylene Glycol 17gm PO BID PRN, Senna/Docusate 2 tablet PO HS PRN #FEN -No standing fluids -Hyponatremia, Hyperkalemia improving -Diabetic diet #PPx -DVT: SCDs Visit type - Emergency Visit Emergency Visit: Yes ED Registration Date: 02/17/19 Care time: The patient presented to the Emergency Department on the above date and was hospitalized for further evaluation of their emergent condition. - New Patient This patient is new to me today: No - Critical Care Critical Care patient: No - Discharge Referral Referred to [facility] Med P.C.: No
[2019-02-20] MEDS ORDERED: ENOXAPARIN NA (PORCINE) 60 MG/0.6 ML DISP.SYRIN SQ ONE (11:15)
[2019-02-20] MEDS: ENOXAPARIN NA (PORCINE) 60 MG/0.6 ML DISP.SYRIN SQ SCH ×2 (11:22→11:57)
[2019-02-20] MEDS: WARFARIN NA 5 MG TABLET (UD) PO ONE ×2 (11:22→11:56)
[2019-02-20] MEDS: FUROSEMIDE 40 MG TABLET (FP) PO SCH (12:04)
--- NOTE | 2019-02-20 12:11 | PN ---
Progress Note (short form) - Note Progress Note: 8 y/o F w/ pmhx of, PD, A fib, HTN/HLD, S & D CHF, STEMI with use of IABP ( October/2018) , splenic infarct, MR post Sandy-Clip , recently admitted (dc 01/01--[facility] for AFIB--as per son started on eliquis ), and discharged from SNF 10 days ago, presented to the ED after her son noticed her HR in the 120's- 140s. Patient's son administered her meds but patient was still symptomatic with complaints of palpitations and SOB. Patient also complained of RUQ discomfort which then prompted son to take patient to the ER. In the ER patient was found to be in A-fib w/ RVR, and volume overloaded. She was given 40mg IV lasix and a Total 30mg IV cardizem. Patient says palpitations have resolved but still complains of RUQ discomfort. Patient also said she had nausea and 1 episode of vomiting today. Patient denies chest pain, worsening edema, diarrhea , fevers, chills. found to have AFIb and started on AC --on hold for supratX, noted to have cognitive and functional decline MRI BRAIN 12/10 mild white matter changes does not know her neurologist admits to dyskinesias face /mouth FU : spoke to son at home at home no HX of tremor -- ? hand shaking, son thinks he does not recall her having at baseline , she is "sharp "; but now slower and more confused was started on fluphenzaine (.5 qd every day ) and brozepam (3mg poqd) and pamelor 10mg in [place] FOR MIGRAINES --since 22 year old as per son , she is "addicted" and gets withdrawal when she comes off RX -- these are brought to her form [place] - Past Medical History [employer]: Yes: Dementia Cardio/Vascular: Yes: AFIB, CHF (borderline reduced LVEF on 2019 ECHO), HTN - Alcohol/Substance Use Hx Alcohol Use: No - Smoking History Smoking history: Never smoked Have you smoked in the past 12 months: No Home Medications - Allergies Allergies/Adverse Reactions: Allergies Allergy/AdvReac Type Severity Reaction Status Date / Time No Known Allergies Allergy Verified 02/16/19 06:27 - Home Medications Home Medications: Ambulatory Orders Aspirin [ASA -] 81 mg PO DAILY 02/18/19 Carbidopa/Levodopa 25/100 [Sinemet 25/100 -] 1 each PO QID 02/18/19 Famotidine [Pepcid] 40 mg PO DAILY 02/18/19 Folic Acid 1 mg PO DAILY 02/18/19 Furosemide [Lasix] 40 mg PO DAILY 02/18/19 Metoprolol Tartrate [Lopressor] 100 mg PO DAILY 02/18/19 Sennosides/Docusate Sodium [Senna Plus Tablet] 2 each PO HS 02/18/19 Simvastatin [Zocor -] 20 mg PO HS 02/18/19 Valsartan [Diovan] 40 mg PO DAILY 02/18/19 Physical Exam-Neuro Vital Signs: Vital Signs Temperature 97.9 F 02/19/19 08:56 Pulse Rate 89 02/19/19 08:56 Respiratory Rate 18 02/19/19 08:56 Blood Pressure 102/61 02/19/19 08:56 O2 Sat by Pulse Oximetry (%) 96 02/19/19 08:38 Constitutional: Yes: Well Nourished, No Distress Labs: CBC, BMP 02/17/19 05:50 02/17/19 05:50 INR, PTT INR 1.61 (0.83-1.09) H 02/19/19 06:29 - Neuro Exam Level Of Consciousness: Yes: Alert (awake and alert, though flat affect and bradykinetic , + facial dyskinesia, no focal weakness, + tremor and cogwheeling , mild ,+ akathisia of legs R >L ) Problem List - Problems (1) Parkinson disease Code(s): G20 - PARKINSON'S DISEASE (2) Atrial fibrillation with rapid ventricular response Code(s): I48.91 - UNSPECIFIED ATRIAL FIBRILLATION Assessment/Plan 68 y/o F w/ pmhx of, PD, A fib, HTN/HLD, S & D CHF, STEMI with use of IABP ( October/2018) , splenic infarct, MR post Sandy-Clip , recently admitted (dc 01/01 ), and discharged from SNF 10 days ago, presented to the ED after her son noticed her HR in the 120's-140s. Patient's son administered her meds but patient was still symptomatic with complaints of palpitations and SOB. Patient also complained of RUQ discomfort which then prompted son to take patient to the ER. In the ER patient was found to be in A-fib w/ RVR, and volume overloaded. She was given 40mg IV lasix and a Total 30mg IV cardizem. Patient says palpitations have resolved but still complains of RUQ discomfort. Patient also said she had nausea and 1 episode of vomiting today. Patient denies chest pain, worsening edema, diarrhea, fevers, chills. found to have AFIb and started on AC --on hold for supratX, noted to have cognitive and functional decline MRI BRAIN 12/10 mild white matter changes does not know her neurologist admits to dyskinesias face /mouth AP : NO formal HX of PD, she has been on chronic antipsychotics FOR MIGRAINEs for > 30 years and now is dependent appears to have dykinesias from sinemet-- would reduce SINEMET to TID--then BID (x3 days ) and then qd (x3 days) -and then off need to ultimately taper fluphenazine but may continue 0.5 QD (will be done as outpt) will get MRI BRAIN -- to ensure no cardio afib- to be coumadin she is to follow up DR. Lassiter outpt DR WAITE Problem List - Problems (1) Parkinson disease Code(s): G20 - PARKINSON'S DISEASE (2) Atrial fibrillation with rapid ventricular response Code(s): I48.91 - UNSPECIFIED ATRIAL FIBRILLATION
[2019-02-20] MEDS: NORTRIPTYLINE HCL 10 MG CAPSULE PO SCH (14:20)
--- NOTE | 2019-02-20 14:26 | PN ---
Teaching Attending Note Name of Resident: Cathy Martinez ATTENDING PHYSICIAN STATEMENT I saw and evaluated the patient. I reviewed the resident's note and discussed the case with the resident. I agree with the resident's findings and plan as documented. SUBJECTIVE: No acute events overnight. No complaints. Spoke with son, states she has been taking some medications from [place], not sure the names. Didn't sleep well last night. OBJECTIVE: Vital Signs Period Temp Pulse Resp BP Sys/Castillo Pulse Ox Last 24 Hr 98.0 F-98.5 F 68-87 18-20 109-125/57-67 97 Laboratory Results - last 24 hr 02/19/19 02/19/19 02/20/19 16:38 21:56 05:25 PT with INR INR PTT (Actin FS) POC Glucometer 118 146 170 02/20/19 02/20/19 09:35 12:07 PT with INR 20.70 H INR 1.74 H PTT (Actin FS) 41.7 H POC Glucometer 177 02/16/19 09:45 Urine Culture - Final Urine - Urine Clean Catch Home Medication List Medication Instructions Recorded Confirmed Type Aspirin [ASA -] 81 mg PO DAILY 02/18/19 02/18/19 History Carbidopa/Levodopa 25/100 [Sinemet 1 each PO QID 02/18/19 02/18/19 History 25/100 -] Famotidine [Pepcid] 40 mg PO DAILY 02/18/19 02/18/19 History Folic Acid 1 mg PO DAILY 02/18/19 02/18/19 History Furosemide [Lasix] 40 mg PO DAILY 02/18/19 02/18/19 History Metoprolol Tartrate [Lopressor] 100 mg PO DAILY 02/18/19 02/18/19 History Sennosides/Docusate Sodium [Senna 2 each PO HS 02/18/19 02/18/19 History Plus Tablet] Simvastatin [Zocor -] 20 mg PO HS 02/18/19 02/18/19 History Valsartan [Diovan] 40 mg PO DAILY 02/18/19 02/18/19 History Fluphenazine HCl 0.5 mg PO DAILY 02/20/19 02/20/19 History Nortriptyline HCl [Pamelor -] 10 mg PO DAILY 02/20/19 02/20/19 History Active Medications Generic Name Dose Route Start Last Admin Trade Name Freq PRN Reason Stop Dose Admin Atorvastatin Calcium 10 mg 02/16/19 22:00 02/19/19 21:54 Lipitor - PO 10 mg HS [facility] Administration Carbidopa/Levodopa 1 each 02/19/19 22:00 02/20/19 14:10 Sinemet 25/100 - PO 1 each TID [facility] Administration Diltiazem HCl 120 mg 02/17/19 21:15 02/20/19 10:49 Cardizem Cd - PO 120 mg DAILY [facility] Administration Folic Acid 1 mg 02/17/19 10:00 02/20/19 10:49 Folic Acid - PO 1 mg DAILY [facility] Administration Furosemide 40 mg 02/20/19 11:15 02/20/19 12:04 Lasix - PO 40 mg DAILY [facility] Administration Insulin Aspart 1 vial 02/16/19 16:30 02/20/19 12:12 Novolog Vial Sliding Scale - SQ 2 unit TIDAC [facility] Administration Protocol Insulin Detemir 12 units 02/17/19 07:00 02/20/19 06:02 Levemir Vial SQ 12 units DAILY@0700 [facility] Administration Metoprolol Tartrate 100 mg 02/16/19 22:00 02/20/19 14:10 Lopressor - PO 100 mg TID [facility] Administration Fluphenazine 1 Mg 0.5 each 02/20/19 14:30 Tablet PO DAILY [facility] Nortriptyline HCl 10 mg 02/20/19 13:45 Pamelor - PO DAILY [facility] Polyethylene Glycol 17 gm 02/16/19 15:48 Miralax (For Daily Use) - PO BID PRN CONSTIPATION Ranitidine HCl 300 mg 02/17/19 10:00 02/20/19 10:49 Zantac - PO 300 mg DAILY [facility] Administration Senna/Docusate Sodium 2 tablet 02/16/19 15:48 Pericolace - PO HS PRN CONSTIPATION Valsartan 40 mg 02/17/19 10:00 02/20/19 10:48 Diovan - PO 40 mg DAILY [facility] Administration Warfarin Sodium 5 mg 02/20/19 22:00 Coumadin - PO 02/20/19 22:01 ONCE@2200 ONE Warfarin Sodium 5 mg 02/21/19 18:00 Coumadin - PO DAILY@1800 [facility] PHYSICAL EXAM: GENERAL: NAD, SITTING IN CHAIR IN HALLWAY, COMFORTABLE CVS: S1S2, IRREG IRREG, NO M/R/G LUNGS: CTA BILATERALLY, NO W/R/R, UNLABORED ABDOMEN: SOFT, NT/ND, NABS EXT: 2+DPP, NO EDEMA ALL IMAGING REPORTS REVIEWED ASSESSMENT AND PLAN: 68 y/o F with PMHx of AFib on coumadin, combined CHF, presents with SOB and palpitations 1) AFib with RVR, rates now controlled -c/w ccb, bb -restart coumadin 5 mg and monitor INR -history of splenic infarct was on coumadin outpatient, resume -dc tele 2)Acute on Chronic combined CHF exacerbation, resolved -start on PO lasix -c/w bb/ccb 3) HTN/HLD -well controlled -c/w current regimen 4) Hypothyroidism -c/w synthroid and followup outpatient 5) Parkinsons? -meds from [place] could be contributing -c/w current regimen and will need close neuro outpatient fu 6) DM2 -BS controlled, c/w current meds 7) CAD s/p CABG -c/w cardioprotective meds -statin/arb/bb, not on asa/plavix due to increased risk of bleeding while on eliquis
[2019-02-20] MEDS ORDERED: FLUPHENAZINE 1 MG TABLET PO SCH (14:30)
[2019-02-20] MEDS ORDERED: WARFARIN NA 5 MG TABLET (UD) PO SCH (18:00)
[2019-02-20] MEDS: ATORVASTATIN CA 10 MG TABLET (FP) PO SCH (21:53)
[2019-02-20] MEDS ORDERED: WARFARIN NA 5 MG TABLET (UD) PO ONE (22:00)
[2019-02-21] MEDS: METOPROLOL TARTRATE 50 MG TABLET (FP) PO SCH ×3 (06:05→21:17)
[2019-02-21] MEDS: CARBIDOPA/LEVODOPA 25/100 TABLET (FP) PO SCH ×3 (06:05→21:18)
[2019-02-21] MEDS: INSULIN (LEVEMIR) 100 UNITS/ML UNITS SQ SCH (06:06)
[2019-02-21] MEDS: INSULIN SLIDING SCALE (NOVOLOG) 1 VIAL SQ SCH ×4 (06:06→16:19)
[2019-02-21 07:29] LABS: BASO % 0.8 % (0-2.0); HEMATOCRIT 30.9 % (32.4-45.2); HEMOGLOBIN 10.1 GM/dL (10.7-15.3); LYMPH % 23.1 % (8-40); MCH 26.1 pg (25.7-33.7); MCHC 32.8 g/dl (32.0-36.0); MEAN CELL VOLUME 79.7 fl (80-96); MEAN PLT VOLUME 8.3 fl (7.5-11.1); NEUT % 65.1 % (42.8-82.8); PLATELET COUNT 398 K/MM3 (134-434); RBC 3.88 M/mm3 (3.60-5.2); RDW 16.5 % (11.6-15.6); WHITE BLOOD COUNT 8.8 K/mm3 (4.0-10.0)
[2019-02-21 07:47] LABS: ANION GAP 7 MMOL/L (8-16); BLOOD UREA NITROGEN 16 mg/dL (7-18); CALCIUM 9.1 mg/dL (8.5-10.1); CHLORIDE 103 mmol/L (98-107); CO2 25 mmol/L (21-32); CREATININE 0.7 mg/dL (0.55-1.3); GLUCOSE,RANDOM 138 mg/dL (74-106); PHOSPHOROUS 3.4 mg/dL (2.5-4.9); SODIUM 135 mmol/L (136-145)
[2019-02-21 08:05] LABS: INR 1.54 (0.83-1.09); PROTHROMBIN TIME (PATIENT) 18.3 SEC (9.7-13.0)
--- NOTE | 2019-02-21 08:51 | PN ---
Progress Note, Physician Chief Complaint: Pt alert and cooperative; denies chest pain or dyspnea. OOB in chair. History of Present Illness: 68 yo woman (b. [place]), with history systolic (borderline reduced LVEF on 2018 ECHO) CHF, afib on eliquis, CAD (? hx CABG, though no signs on skin or Xray of this procedure), prior cardiac arrest, DM, Parkinson's disease, recent memory lapses, who presents with tachycardia and abd pain, subjective fevers. Denies N/V/D. Denies cp. +SOB. - - Current Medication List Current Medications: Active Medications Atorvastatin Calcium (Lipitor -) 10 mg PO HS [facility] Last Admin: 02/20/19 21:53 Dose: 10 mg Carbidopa/Levodopa (Sinemet 25/100 -) 1 each PO BID [facility] Diltiazem HCl (Cardizem Cd -) 120 mg PO DAILY [facility] Last Admin: 02/20/19 10:49 Dose: 120 mg Fluphenazine HCl (Prolixin) 0.5 mg PO DAILY [facility] Folic Acid (Folic Acid -) 1 mg PO DAILY [facility] Last Admin: 02/20/19 10:49 Dose: 1 mg Furosemide (Lasix -) 40 mg PO DAILY [facility] Last Admin: 02/20/19 12:04 Dose: 40 mg Insulin Aspart (Novolog Vial Sliding Scale -) 1 vial SQ TIDAC [facility]; Protocol Last Admin: 02/21/19 06:06 Dose: Not Given Insulin Detemir (Levemir Vial) 12 units SQ DAILY@0700 [facility] Last Admin: 02/21/19 06:06 Dose: 12 units Metoprolol Tartrate (Lopressor -) 100 mg PO TID [facility] Last Admin: 02/21/19 06:05 Dose: 100 mg Nortriptyline HCl (Pamelor -) 10 mg PO DAILY [facility] Last Admin: 02/20/19 14:20 Dose: 10 mg Polyethylene Glycol (Miralax (For Daily Use) -) 17 gm PO BID PRN PRN Reason: CONSTIPATION Ranitidine HCl (Zantac -) 300 mg PO DAILY [facility] Last Admin: 02/20/19 10:49 Dose: 300 mg Senna/Docusate Sodium (Pericolace -) 2 tablet PO HS PRN PRN Reason: CONSTIPATION Valsartan (Diovan -) 40 mg PO DAILY [facility] Last Admin: 02/20/19 10:48 Dose: 40 mg Warfarin Sodium (Coumadin -) 5 mg PO DAILY@1800 [facility] - Objective Vital Signs: Vital Signs Temperature 98 F 02/21/19 06:00 Pulse Rate 75 02/21/19 06:00 Respiratory Rate 20 02/21/19 06:00 Blood Pressure 106/62 02/21/19 06:00 O2 Sat by Pulse Oximetry (%) 98 02/20/19 21:00 Labs: CBC, BMP 02/21/19 05:30 02/21/19 05:30 INR, PTT INR 1.54 (0.83-1.09) H 02/21/19 05:30 Problem List - Problems (1) Atrial fibrillation with rapid ventricular response Assessment/Plan: On metoprolol and diltiazem for HR control. As discussed with Dr. Martinez, medical transport specialist, hematolgist has advised that pt not use a DOAC, and instead be placed on warfarin. The latter will be started tonight, as am dose of apixaban has been given. Code(s): I48.91 - UNSPECIFIED ATRIAL FIBRILLATION (2) Acute on chronic systolic and diastolic heart failure, NYHA class 1 Code(s): I50.43 - ACUTE ON CHRONIC COMBINED SYSTOLIC AND DIASTOLIC HRT FAIL (3) HTN (hypertension) Code(s): I10 - ESSENTIAL (PRIMARY) HYPERTENSION (4) Hyperlipidemia Code(s): E78.5 - HYPERLIPIDEMIA, UNSPECIFIED Qualifiers: Hyperlipidemia type: pure hypercholesterolemia Qualified Code(s): E78.00 - Pure hypercholesterolemia, unspecified; E78.0 - Pure hypercholesterolemia (5) S/P mitral valve repair Code(s): Z98.890 - OTHER SPECIFIED POSTPROCEDURAL STATES (6) T2DM (type 2 diabetes mellitus) Code(s): E11.9 - TYPE 2 DIABETES MELLITUS WITHOUT COMPLICATIONS (7) Anemia Code(s): D64.9 - ANEMIA, UNSPECIFIED (8) Hypothyroid Code(s): E03.9 - HYPOTHYROIDISM, UNSPECIFIED (9) Need for assistance due to unsteady gait Code(s): R26.89 - OTHER ABNORMALITIES OF GAIT AND MOBILITY (10) Parkinsonian tremor Code(s): G20 - PARKINSON'S DISEASE (11) Memory deficit Code(s): R41.3 - OTHER AMNESIA (12) Splenic infarct Code(s): D73.5 - INFARCTION OF SPLEEN (13) Diabetes Code(s): E11.9 - TYPE 2 DIABETES MELLITUS WITHOUT COMPLICATIONS
--- NOTE | 2019-02-21 10:34 | EKG ---
Test Reason : Blood Pressure : / mmHG Vent. Rate : 070 BPM Atrial Rate : 068 BPM P-R Int : 000 ms QRS Dur : 078 ms QT Int : 432 ms P-R-T Axes : 000 -47 -71 degrees QTc Int : 466 ms ATRIAL FIBRILLATION LEFT AXIS DEVIATION NONSPECIFIC ST AND T WAVE ABNORMALITY ABNORMAL ECG Confirmed by DEB HATCH MD ([id number]) on 02/21/2019 10:34:14 AM Referred By: VIVIAN FERNÁNDEZ Confirmed By:DEB HATCH MD
[2019-02-21] MEDS: FOLIC ACID 1 MG TABLET (FP) PO SCH (10:42)
[2019-02-21] MEDS: RANITIDINE HCL 150 MG TABLET (FP) PO SCH (10:42)
[2019-02-21] MEDS ORDERED: PT OWN MED DRAWER 7, Y5N ONE (10:42)
[2019-02-21] MEDS: FLUPHENAZINE 1 MG TABLET PO SCH (10:43)
[2019-02-21] MEDS: NORTRIPTYLINE HCL 10 MG CAPSULE PO SCH (10:44)
[2019-02-21] MEDS: FUROSEMIDE 40 MG TABLET (FP) PO SCH (11:37)
[2019-02-21] MEDS: VALSARTAN 40 MG TABLET (FP) PO SCH (11:37)
--- NOTE | 2019-02-21 12:25 | PN ---
Progress Note, Physician History of Present Illness: The patient is a 68-year-old female with a past medical history significant for CAD HTN, HLD, diastolic CHF, Cardiac arrest with ROSC, STEMI, Mitraclip ([facility]), Afib on Eliquis, splenic infarct and Parkinson's presents to the emergency department via after her son noticed her HR in the 120's-140s. Patient's son administered her meds but patient was still symptomatic with complaints of palpitations and SOB. Patient also complained of RUQ discomfort which then prompted son to take patient to the ER. In the ER patient was found to be in A- fib w/ RVR, and volume overloaded. She was given 40mg IV lasix and a Total 30mg IV cardizem. Patient says palpitations have resolved but still complains of RUQ discomfort. In ED: 1) CXR: new congestive changes 2) CT AP: mildy distended gallbladder. fecal retention. 3) 40 lasix IV - Current Medication List Current Medications: Active Medications Atorvastatin Calcium (Lipitor -) 10 mg PO HS [facility] Last Admin: 02/20/19 21:53 Dose: 10 mg Carbidopa/Levodopa (Sinemet 25/100 -) 1 each PO BID [facility] Last Admin: 02/21/19 10:43 Dose: 1 each Diltiazem HCl (Cardizem Cd -) 120 mg PO DAILY [facility] Last Admin: 02/21/19 10:45 Dose: 120 mg Fluphenazine HCl (Prolixin) 0.5 mg PO DAILY [facility] Last Admin: 02/21/19 10:43 Dose: 0.5 mg Folic Acid (Folic Acid -) 1 mg PO DAILY [facility] Last Admin: 02/21/19 10:42 Dose: 1 mg Furosemide (Lasix -) 40 mg PO DAILY [facility] Last Admin: 02/21/19 11:37 Dose: 40 mg Insulin Aspart (Novolog Vial Sliding Scale -) 1 vial SQ TIDAC [facility]; Protocol Last Admin: 02/21/19 11:45 Dose: 2 unit Insulin Detemir (Levemir Vial) 12 units SQ DAILY@0700 [facility] Last Admin: 02/21/19 06:06 Dose: 12 units Metoprolol Tartrate (Lopressor -) 100 mg PO TID [facility] Last Admin: 02/21/19 06:05 Dose: 100 mg Nortriptyline HCl (Pamelor -) 10 mg PO DAILY [facility] Last Admin: 02/21/19 10:44 Dose: 10 mg Polyethylene Glycol (Miralax (For Daily Use) -) 17 gm PO BID PRN PRN Reason: CONSTIPATION Ranitidine HCl (Zantac -) 300 mg PO DAILY [facility] Last Admin: 02/21/19 10:42 Dose: 300 mg Senna/Docusate Sodium (Pericolace -) 2 tablet PO HS PRN PRN Reason: CONSTIPATION Valsartan (Diovan -) 40 mg PO DAILY [facility] Last Admin: 02/21/19 11:37 Dose: 40 mg Warfarin Sodium (Coumadin -) 5 mg PO DAILY@1800 [facility] - Objective Vital Signs: Vital Signs Temperature 98 F 02/21/19 09:00 Pulse Rate 92 H 02/21/19 11:35 Respiratory Rate 20 02/21/19 11:35 Blood Pressure 122/71 02/21/19 11:35 O2 Sat by Pulse Oximetry (%) 98 02/20/19 21:00 Eyes: Yes: WNL, Conjunctiva Clear, EOM Intact HENT: Yes: WNL, Atraumatic, Normocephalic Neck: Yes: WNL, Supple, Trachea Midline Cardiovascular: Yes: WNL, Regular Rate and Rhythm Respiratory: Yes: WNL, Regular, CTA Bilaterally Gastrointestinal: Yes: WNL, Normal Bowel Sounds Genitourinary: Yes: WNL Musculoskeletal: Yes: WNL Extremities: Yes: WNL Edema: No Integumentary: Yes: WNL Neurological: Yes: WNL, Alert, Oriented ...Motor Strength: WNL Psychiatric: Yes: WNL Labs: CBC, BMP 02/21/19 05:30 02/21/19 05:30 INR, PTT INR 1.54 (0.83-1.09) H 02/21/19 05:30 Assessment/Plan - Problems (1) Atrial fibrillation with rapid ventricular response Assessment/Plan: On metoprolol and diltiazem for HR control. hematolgist has advised that pt not use a DOAC, and instead be placed on warfarin. The latter will be started tonight, as am dose of apixaban has been given. Code(s): I48.91 - UNSPECIFIED ATRIAL FIBRILLATION (2) Acute on chronic systolic and diastolic heart failure, NYHA class 1 Code(s): I50.43 - ACUTE ON CHRONIC COMBINED SYSTOLIC AND DIASTOLIC HRT FAIL (3) HTN (hypertension) Code(s): I10 - ESSENTIAL (PRIMARY) HYPERTENSION (4) Hyperlipidemia Code(s): E78.5 - HYPERLIPIDEMIA, UNSPECIFIED Qualifiers: Hyperlipidemia type: pure hypercholesterolemia Qualified Code(s): E78.00 - Pure hypercholesterolemia, unspecified; E78.0 - Pure hypercholesterolemia (5) S/P mitral valve repair Code(s): Z98.890 - OTHER SPECIFIED POSTPROCEDURAL STATES (6) T2DM (type 2 diabetes mellitus) Code(s): E11.9 - TYPE 2 DIABETES MELLITUS WITHOUT COMPLICATIONS (7) Anemia Code(s): D64.9 - ANEMIA, UNSPECIFIED (8) Hypothyroid Code(s): E03.9 - HYPOTHYROIDISM, UNSPECIFIED (9) Need for assistance due to unsteady gait Code(s): R26.89 - OTHER ABNORMALITIES OF GAIT AND MOBILITY (10) Parkinsonian tremor Code(s): G20 - PARKINSON'S DISEASE (11) Memory deficit Code(s): R41.3 - OTHER AMNESIA (12) Splenic infarct Code(s): D73.5 - INFARCTION OF SPLEEN (13) Diabetes Code(s): E11.9 - TYPE 2 DIABETES MELLITUS WITHOUT COMPLICATIONS
--- NOTE | 2019-02-21 14:14 | PN ---
Physical Exam: SUBJECTIVE: Patient seen and examined this AM. Complained of chest pain--Worse with inspiration and reproducible. No acute overnight events. OBJECTIVE: Vital Signs Period Temp Pulse Resp BP Sys/Castillo Pulse Ox Last 24 Hr 97.9 F-98.0 F 61-103 18-20 99-130/49-72 98 GENERAL: A&Ox3, NAD HEAD: NCAT EYES: PERRL, EOMI ENT: moist mucous membranes NECK: Supple LUNGS: Diminished breath sounds at the bases, no wheezes, no crackles HEART: Irregularly Irregular, S1, S2 without murmur ABDOMEN: Soft, nontender, nondistended, + bowel sounds, no guarding EXTREMITIES: No edema NEUROLOGICAL: Cranial nerves II through XII grossly intact. SKIN: Warm, dry Laboratory Results - last 24 hr 02/20/19 02/20/19 02/21/19 17:55 21:43 05:30 WBC RBC Hgb Hct MCV MCH MCHC RDW Plt Count MPV Absolute Neuts (auto) Neutrophils % Lymphocytes % Monocytes % Eosinophils % Basophils % Nucleated RBC % PT with INR 18.30 H INR 1.54 H Sodium Potassium Chloride Carbon Dioxide Anion Gap BUN Creatinine Creat Clearance w eGFR POC Glucometer 172 189 Random Glucose Calcium Phosphorus Magnesium Creatine Kinase Troponin I 02/21/19 02/21/19 02/21/19 05:30 05:30 05:53 WBC 8.8 RBC 3.88 Hgb 10.1 L Hct 30.9 L MCV 79.7 L MCH 26.1 MCHC 32.8 RDW 16.5 H Plt Count 398 MPV 8.3 Absolute Neuts (auto) 5.7 Neutrophils % 65.1 Lymphocytes % 23.1 D Monocytes % 9.0 Eosinophils % 2.0 D Basophils % 0.8 Nucleated RBC % 0 PT with INR INR Sodium 135 L Potassium 4.0 Chloride 103 Carbon Dioxide 25 Anion Gap 7 L BUN 16 Creatinine 0.7 Creat Clearance w eGFR 83.21 POC Glucometer 146 Random Glucose 138 H Calcium 9.1 Phosphorus 3.4 Magnesium 2.0 Creatine Kinase 33 Troponin I < 0.02 02/21/19 02/21/19 09:39 11:39 WBC RBC Hgb Hct MCV MCH MCHC RDW Plt Count MPV Absolute Neuts (auto) Neutrophils % Lymphocytes % Monocytes % Eosinophils % Basophils % Nucleated RBC % PT with INR INR Sodium Potassium Chloride Carbon Dioxide Anion Gap BUN Creatinine Creat Clearance w eGFR POC Glucometer 187 Random Glucose Calcium Phosphorus Magnesium Creatine Kinase 36 Troponin I < 0.02 Active Medications Atorvastatin Calcium (Lipitor -) 10 mg PO HS [facility] Last Admin: 02/20/19 21:53 Dose: 10 mg Carbidopa/Levodopa (Sinemet 25/100 -) 1 each PO BID [facility] Last Admin: 02/21/19 10:43 Dose: 1 each Diltiazem HCl (Cardizem Cd -) 120 mg PO DAILY [facility] Last Admin: 02/21/19 10:45 Dose: 120 mg Fluphenazine HCl (Prolixin) 0.5 mg PO DAILY [facility] Last Admin: 02/21/19 10:43 Dose: 0.5 mg Folic Acid (Folic Acid -) 1 mg PO DAILY [facility] Last Admin: 02/21/19 10:42 Dose: 1 mg Furosemide (Lasix -) 40 mg PO DAILY [facility] Last Admin: 02/21/19 11:37 Dose: 40 mg Insulin Aspart (Novolog Vial Sliding Scale -) 1 vial SQ TIDAC [facility]; Protocol Last Admin: 02/21/19 11:45 Dose: 2 unit Insulin Detemir (Levemir Vial) 12 units SQ DAILY@0700 [facility] Last Admin: 02/21/19 06:06 Dose: 12 units Metoprolol Tartrate (Lopressor -) 100 mg PO TID [facility] Last Admin: 02/21/19 06:05 Dose: 100 mg Nortriptyline HCl (Pamelor -) 10 mg PO DAILY [facility] Last Admin: 02/21/19 10:44 Dose: 10 mg Polyethylene Glycol (Miralax (For Daily Use) -) 17 gm PO BID PRN PRN Reason: CONSTIPATION Ranitidine HCl (Zantac -) 300 mg PO DAILY [facility] Last Admin: 02/21/19 10:42 Dose: 300 mg Senna/Docusate Sodium (Pericolace -) 2 tablet PO HS PRN PRN Reason: CONSTIPATION Valsartan (Diovan -) 40 mg PO DAILY [facility] Last Admin: 02/21/19 11:37 Dose: 40 mg Warfarin Sodium (Coumadin -) 5 mg PO DAILY@1800 [facility] IMAGING: -CXR: New congestive and atelectatic findings since 01/01/2019 -CT A/P with contrast: Mildly distended gallbladder without evidence of cholelithiasis or biliary ductal dilatation. Follow-up sonogram recommended. Fecal retention with no acute pathology within the abdomen or pelvis. -EKG: AFib with RVR, LAFB, VR 108, QTc 522 -EKG: AFib, LAD, VR 70, QTc 466 ASSESSMENT/PLAN: 68 y/o F with PMHx of AFib (on Coumadin) HTN, HLD, S & D CHF, STEMI (with use of IABP October 2018) , Mitral leaflets clipping presented with SOB and palpitations, found to be in AFib with RVR #Chest Pain -New EKG Noted above; ?TWI in V4-V6 -Trop < 0.02 x2 #AFib with RVR, controlled -Continue Cardizem CD 120mg Daily, Metoprolol Tartrate 100mg PO TID -Cardiology consulted, Hematology consulted, Appreciate rec's -Warfarin 5mg PO Daily -Bridge with Lovenox (1mg/kg)--Discussed with Dr. Cifuentes -Tele -Monitor INR with Goal of 2-3 #Acute on Chronic CHF exacerbation, Now euvolemic -Likely due to AFib with RVR -PO Furosemide 40mg Daily -Strict I/O's, Daily weight, Monitor Cr #Supratherapeutic INR, Resolved -Now Subtherapeutic, Resume AC noted above #RUQ discomfort + TBili mildly elevated, Improved -In the setting of hepatic congestion -Monitor for worsening discomfort and signs of obstruction #HTN, Controlled -Metoprolol Tartrate 100mg PO TID, Valsartan 40mg PO Daily #Hypothyroidism -Will need to have TSH rechecked as outpatient #HLD -Continue Atorvastatin 10mg PO HS #Parkinsons -Carbidopa/Levodopa (25/100) BID x 3 days -Neurology (Dr. Lassiter) Consulted, Appreciate rec's #DM -ISS BGMs ACHS -Detemir 12u SQ Daily #Constipation -Polyethylene Glycol 17gm PO BID PRN, Senna/Docusate 2 tablet PO HS PRN #FEN -No standing fluids -Hyponatremia, Hyperkalemia improving -Diabetic diet #PPx -DVT: SCDs Visit type - Emergency Visit Emergency Visit: Yes ED Registration Date: 02/17/19 Care time: The patient presented to the Emergency Department on the above date and was hospitalized for further evaluation of their emergent condition. - New Patient This patient is new to me today: No - Critical Care Critical Care patient: No - Discharge Referral Referred to [facility] Med P.C.: No
[2019-02-21] MEDS: ENOXAPARIN NA (PORCINE) 80 MG/0.8 ML DISP.SYRIN SQ SCH ×2 (14:28→21:18)
[2019-02-21] MEDS: WARFARIN NA 5 MG TABLET (UD) PO SCH (17:19)
[2019-02-21] MEDS ORDERED: WARFARIN NA 5 MG TABLET (UD) PO SCH (18:00)
--- NOTE | 2019-02-21 18:39 | PN ---
Teaching Attending Note Name of Resident: Cathy Martinez ATTENDING PHYSICIAN STATEMENT I saw and evaluated the patient. I reviewed the resident's note and discussed the case with the resident. I agree with the resident's findings and plan as documented. SUBJECTIVE: complained of cp this am. had SOB. no palpitations OBJECTIVE: NAD, awake, alert, cooperative CV: RRR, no MRG, no JVD Lungs: CTAB Ext : no edema or erythema, no tenderness TTP over chest wall ASSESSMENT AND PLAN: 68 y/o lady with h/o recent MV clipping ,Parkinson's, HTN, DM, HLD, systolic CHF, STEMI, reported splenic infarct, A fib,recent cath at [facility] ( unknown results or procedure), she presented with SOb and palpitations. she was found to be in A fib with RVR 1- CP: EKG obtained in [place], which showed new TWI in inferiolateral leads. trop neg x 2. EKG repeated in afternoon, and TWI improved. dr. Tapia notified, and Dr. parsons was informed. Lovenox started will d/w card about next step 2- A fib with RVR: improved - cont BB - cont cardizem. - cont coumadin. 2- Acute on chronic systolic heart failure. cont to be SOB and requires o2. - cont po lasix - cont ARB , and BB 3- DM : cont levemir and SSI 4- slightly elevated TSH. TFTs as out p t 5- reported hx of splenic infarct: cont with coumadin goal INR 2-3 6- Dyskinesia: cont decreased dose of Sinemet , will decrease further on 01/25 cont decreased dose of fluphenazine 7- HLOC .
--- NOTE | 2019-02-21 20:32 | PN ---
Progress Note (short form) - Note Progress Note: Patient seen and examined Last Vital Signs Temp Pulse Resp BP Pulse Ox 98.5 F 77 20 126/74 96 02/22/19 02:00 02/22/19 06:00 02/22/19 06:00 02/22/19 06:00 02/21/19 21:00 Cor: RSR, No murmurs, No gallops Lungs: Clear to P&A Abd: Soft, Normal bowel sounds, No organomegaly Ext:No significant edema Labs/meds reviewed a/p 68 yo woman (b. [place]), with history systolic (borderline reduced LVEF on 2018 ECHO) CHF, afib on eliquis, CAD (? hx CABG, though no signs on skin or Xray of this procedure), prior cardiac arrest, DM, Parkinson's disease, recent memory lapses, who presents with tachycardia and abd pain, subjective fevers. Splenic infarcts of indeterminate age and hepatic surface irregularity ( ? cirrhosis) noted on CT 01/07 Comes in with supratherapeutic INR . Now subtherapeutic at 1.54 Rebridging lovenox to coumadin Suspect infarcts related to low flow state from CHF?
[2019-02-21] MEDS: ATORVASTATIN CA 10 MG TABLET (FP) PO SCH (21:17)
[2019-02-22] MEDS: INSULIN (LEVEMIR) 100 UNITS/ML UNITS SQ SCH ×2 (06:29→06:35)
[2019-02-22] MEDS: INSULIN SLIDING SCALE (NOVOLOG) 1 VIAL SQ SCH ×4 (06:29→17:46)
[2019-02-22] MEDS: METOPROLOL TARTRATE 50 MG TABLET (FP) PO SCH ×3 (06:33→21:18)
[2019-02-22 07:47] LABS: INR 1.52 (0.83-1.09)
--- NOTE | 2019-02-22 08:57 | PN ---
Progress Note, Physician History of Present Illness: The patient is a 68-year-old female with a past medical history significant for CAD HTN, HLD, diastolic CHF, Cardiac arrest with ROSC, STEMI, Mitraclip ([facility]), Afib on Eliquis, splenic infarct and Parkinson's presents to the emergency department via after her son noticed her HR in the 120's-140s. Patient's son administered her meds but patient was still symptomatic with complaints of palpitations and SOB. Patient also complained of RUQ discomfort which then prompted son to take patient to the ER. In the ER patient was found to be in A- fib w/ RVR, and volume overloaded. She was given 40mg IV lasix and a Total 30mg IV cardizem. Patient says palpitations have resolved but still complains of RUQ discomfort. In ED: 1) CXR: new congestive changes 2) CT AP: mildy distended gallbladder. fecal retention. 3) 40 lasix IV - Current Medication List Current Medications: Active Medications Atorvastatin Calcium (Lipitor -) 10 mg PO [facility] Last Admin: 02/21/19 21:17 Dose: 10 mg Carbidopa/Levodopa (Sinemet 25/100 -) 1 each PO BID [facility] Last Admin: 02/21/19 21:18 Dose: 1 each Diltiazem HCl (Cardizem Cd -) 120 mg PO DAILY [facility] Last Admin: 02/21/19 10:45 Dose: 120 mg Enoxaparin Sodium (Lovenox -) 70 mg SQ BID [facility] Last Admin: 02/21/19 21:18 Dose: 70 mg Fluphenazine HCl (Prolixin) 0.5 mg PO DAILY [facility] Last Admin: 02/21/19 10:43 Dose: 0.5 mg Folic Acid (Folic Acid -) 1 mg PO DAILY [facility] Last Admin: 02/21/19 10:42 Dose: 1 mg Furosemide (Lasix -) 40 mg PO DAILY [facility] Last Admin: 02/21/19 11:37 Dose: 40 mg Insulin Aspart (Novolog Vial Sliding Scale -) 1 vial SQ TIDAC [facility]; Protocol Last Admin: 02/22/19 06:33 Dose: Not Given Insulin Detemir (Levemir Vial) 12 units SQ DAILY@0700 [facility] Last Admin: 02/22/19 06:35 Dose: 12 units Metoprolol Tartrate (Lopressor -) 100 mg PO TID [facility] Last Admin: 02/22/19 06:33 Dose: 100 mg Nortriptyline HCl (Pamelor -) 10 mg PO DAILY [facility] Last Admin: 02/21/19 10:44 Dose: 10 mg Polyethylene Glycol (Miralax (For Daily Use) -) 17 gm PO BID PRN PRN Reason: CONSTIPATION Ranitidine HCl (Zantac -) 300 mg PO DAILY [facility] Last Admin: 02/21/19 10:42 Dose: 300 mg Senna/Docusate Sodium (Pericolace -) 2 tablet PO HS PRN PRN Reason: CONSTIPATION Valsartan (Diovan -) 40 mg PO DAILY [facility] Last Admin: 02/21/19 11:37 Dose: 40 mg Warfarin Sodium (Coumadin -) 5 mg PO DAILY@1800 [facility] Last Admin: 02/21/19 17:19 Dose: 5 mg - Objective Vital Signs: Vital Signs Temperature 98.5 F 02/22/19 02:00 Pulse Rate 77 02/22/19 06:00 Respiratory Rate 20 02/22/19 06:00 Blood Pressure 126/74 02/22/19 06:00 O2 Sat by Pulse Oximetry (%) 98 02/22/19 08:47 Eyes: Yes: WNL, Conjunctiva Clear, EOM Intact HENT: Yes: WNL, Atraumatic, Normocephalic Neck: Yes: WNL, Supple, Trachea Midline Cardiovascular: Yes: WNL, Regular Rate and Rhythm Respiratory: Yes: WNL, Regular, CTA Bilaterally Gastrointestinal: Yes: WNL, Normal Bowel Sounds Genitourinary: Yes: WNL Musculoskeletal: Yes: WNL Extremities: Yes: WNL Edema: No Integumentary: Yes: WNL Neurological: Yes: WNL, Alert, Oriented ...Motor Strength: WNL Psychiatric: Yes: WNL Labs: CBC, BMP 02/21/19 05:30 02/21/19 05:30 INR, PTT INR 1.52 (0.83-1.09) H 02/22/19 05:30 Assessment/Plan - Problems (1) Atrial fibrillation with rapid ventricular response Assessment/Plan: On metoprolol and diltiazem for HR control. hematolgist has advised that pt not use a DOAC, and instead be placed on warfarin. Awaiting therapeutic INR New ekg changes Please obtain c. cath result from [facility] will decide re ischemic w/u after reviewing cath results. Code(s): I48.91 - UNSPECIFIED ATRIAL FIBRILLATION (2) Acute on chronic systolic and diastolic heart failure, NYHA class 1 Code(s): I50.43 - ACUTE ON CHRONIC COMBINED SYSTOLIC AND DIASTOLIC HRT FAIL (3) HTN (hypertension) Code(s): I10 - ESSENTIAL (PRIMARY) HYPERTENSION (4) Hyperlipidemia Code(s): E78.5 - HYPERLIPIDEMIA, UNSPECIFIED Qualifiers: Hyperlipidemia type: pure hypercholesterolemia Qualified Code(s): E78.00 - Pure hypercholesterolemia, unspecified; E78.0 - Pure hypercholesterolemia (5) S/P mitral valve repair Code(s): Z98.890 - OTHER SPECIFIED POSTPROCEDURAL STATES (6) T2DM (type 2 diabetes mellitus) Code(s): E11.9 - TYPE 2 DIABETES MELLITUS WITHOUT COMPLICATIONS (7) Anemia Code(s): D64.9 - ANEMIA, UNSPECIFIED (8) Hypothyroid Code(s): E03.9 - HYPOTHYROIDISM, UNSPECIFIED (9) Need for assistance due to unsteady gait Code(s): R26.89 - OTHER ABNORMALITIES OF GAIT AND MOBILITY (10) Parkinsonian tremor Code(s): G20 - PARKINSON'S DISEASE (11) Memory deficit Code(s): R41.3 - OTHER AMNESIA (12) Splenic infarct Code(s): D73.5 - INFARCTION OF SPLEEN (13) Diabetes Code(s): E11.9 - TYPE 2 DIABETES MELLITUS WITHOUT COMPLICATIONS
--- NOTE | 2019-02-22 09:11 | PN ---
Physical Exam: SUBJECTIVE: Patient seen and examined this AM. Chest pain improved but remains; Worse with eating. No acute overnight events. OBJECTIVE: Vital Signs Period Temp Pulse Resp BP Sys/Castillo Pulse Ox Last 24 Hr 98.0 F-98.5 F 70-92 18-20 98-126/52-74 96-98 GENERAL: A&Ox3, NAD HEAD: NCAT EYES: PERRL, EOMI ENT: moist mucous membranes NECK: Supple LUNGS: Diminished breath sounds at the bases, no wheezes, no crackles HEART: Irregularly Irregular, S1, S2 without murmur ABDOMEN: Soft, nontender, nondistended, + bowel sounds, no guarding EXTREMITIES: No edema NEUROLOGICAL: Cranial nerves II through XII grossly intact. SKIN: Warm, dry Laboratory Results - last 24 hr 02/21/19 02/21/19 02/21/19 05:30 09:39 11:39 PT with INR INR POC Glucometer 187 Creatine Kinase 33 36 Troponin I < 0.02 < 0.02 02/21/19 02/22/19 02/22/19 16:14 05:30 06:32 PT with INR 18.00 H INR 1.52 H POC Glucometer 270 147 Creatine Kinase Troponin I Microbiology 02/16/19 09:45 Urine - Urine Clean Catch Urine Culture - Final Active Medications Atorvastatin Calcium (Lipitor -) 10 mg PO HS [facility] Last Admin: 02/21/19 21:17 Dose: 10 mg Carbidopa/Levodopa (Sinemet 25/100 -) 1 each PO BID [facility] Last Admin: 02/21/19 21:18 Dose: 1 each Diltiazem HCl (Cardizem Cd -) 120 mg PO DAILY [facility] Last Admin: 02/21/19 10:45 Dose: 120 mg Enoxaparin Sodium (Lovenox -) 70 mg SQ BID [facility] Last Admin: 02/21/19 21:18 Dose: 70 mg Fluphenazine HCl (Prolixin) 0.5 mg PO DAILY [facility] Last Admin: 02/21/19 10:43 Dose: 0.5 mg Folic Acid (Folic Acid -) 1 mg PO DAILY [facility] Last Admin: 02/21/19 10:42 Dose: 1 mg Furosemide (Lasix -) 40 mg PO DAILY [facility] Last Admin: 02/21/19 11:37 Dose: 40 mg Insulin Aspart (Novolog Vial Sliding Scale -) 1 vial SQ TIDAC [facility]; Protocol Last Admin: 02/22/19 06:33 Dose: Not Given Insulin Detemir (Levemir Vial) 12 units SQ DAILY@0700 [facility] Last Admin: 02/22/19 06:35 Dose: 12 units Metoprolol Tartrate (Lopressor -) 100 mg PO TID [facility] Last Admin: 02/22/19 06:33 Dose: 100 mg Nortriptyline HCl (Pamelor -) 10 mg PO DAILY [facility] Last Admin: 02/21/19 10:44 Dose: 10 mg Polyethylene Glycol (Miralax (For Daily Use) -) 17 gm PO BID PRN PRN Reason: CONSTIPATION Ranitidine HCl (Zantac -) 300 mg PO DAILY [facility] Last Admin: 02/21/19 10:42 Dose: 300 mg Senna/Docusate Sodium (Pericolace -) 2 tablet PO HS PRN PRN Reason: CONSTIPATION Valsartan (Diovan -) 40 mg PO DAILY [facility] Last Admin: 02/21/19 11:37 Dose: 40 mg Warfarin Sodium (Coumadin -) 5 mg PO DAILY@1800 [facility] Last Admin: 02/21/19 17:19 Dose: 5 mg IMAGING: -CXR: New congestive and atelectatic findings since 01/01/2019 -CT A/P with contrast: Mildly distended gallbladder without evidence of cholelithiasis or biliary ductal dilatation. Follow-up sonogram recommended. Fecal retention with no acute pathology within the abdomen or pelvis. -EKG: AFib with RVR, LAFB, VR 108, QTc 522 -EKG: AFib, LAD, VR 70, QTc 466 ASSESSMENT/PLAN: 68 y/o F with PMHx of AFib (on Coumadin) HTN, HLD, S & D CHF, STEMI (with use of IABP October 2018) , Mitral leaflets clipping presented with SOB and palpitations, found to be in AFib with RVR #Chest Pain -New EKG Noted above; ?TWI in V4-V6 -Trop < 0.02 x2 -Further ischemic work up pending prior cath report; Spoke with SON this AM who will bring in whatever paperwork he has, If he does not have Cath report, will obtain from [facility] #AFib with RVR, controlled -Continue Cardizem CD 120mg Daily, Metoprolol Tartrate 100mg PO TID -Cardiology consulted, Hematology consulted, Appreciate rec's -Warfarin 5mg PO Daily -Bridge with Lovenox (1mg/kg BID)--Discussed with Dr. Cifuentes -Tele -Monitor INR with Goal of 2-3 #Acute on Chronic CHF exacerbation, Now euvolemic -Likely due to AFib with RVR -PO Furosemide 40mg Daily -Strict I/O's, Daily weight, Monitor Cr #Supratherapeutic INR, Resolved -Now Subtherapeutic, Resume AC noted above #RUQ discomfort + TBili mildly elevated, Improved -In the setting of hepatic congestion -Monitor for worsening discomfort and signs of obstruction #HTN, Controlled -Metoprolol Tartrate 100mg PO TID, Valsartan 40mg PO Daily #Hypothyroidism -Will need to have TSH rechecked as outpatient #HLD -Continue Atorvastatin 10mg PO HS #Parkinsons -Carbidopa/Levodopa (25/100) BID x 3 days; Will further decrease to Daily on 02/24 -Neurology (Dr. Lassiter) Consulted, Appreciate rec's #DM -ISS BGMs ACHS -Detemir 12u SQ Daily #Constipation -Polyethylene Glycol 17gm PO BID PRN, Senna/Docusate 2 tablet PO HS PRN #FEN -No standing fluids -Hyponatremia, Hyperkalemia improving -Diabetic diet #PPx -DVT: SCDs Visit type - Emergency Visit Emergency Visit: Yes ED Registration Date: 02/17/19 Care time: The patient presented to the Emergency Department on the above date and was hospitalized for further evaluation of their emergent condition. - New Patient This patient is new to me today: No - Critical Care Critical Care patient: No - Discharge Referral Referred to [facility] Med P.C.: No
[2019-02-22] MEDS: CARBIDOPA/LEVODOPA 25/100 TABLET (FP) PO SCH ×2 (09:15→21:17)
[2019-02-22] MEDS: VALSARTAN 40 MG TABLET (FP) PO SCH (09:15)
[2019-02-22] MEDS: FOLIC ACID 1 MG TABLET (FP) PO SCH (09:15)
[2019-02-22] MEDS: RANITIDINE HCL 150 MG TABLET (FP) PO SCH (09:15)
[2019-02-22] MEDS: FUROSEMIDE 40 MG TABLET (FP) PO SCH (09:15)
[2019-02-22] MEDS: ENOXAPARIN NA (PORCINE) 80 MG/0.8 ML DISP.SYRIN SQ SCH ×2 (09:16→21:18)
[2019-02-22] MEDS: NORTRIPTYLINE HCL 10 MG CAPSULE PO SCH (09:28)
[2019-02-22] MEDS ORDERED: PT OWN MED DRAWER 7, Y5N ONE (09:28)
[2019-02-22] MEDS: FLUPHENAZINE 1 MG TABLET PO SCH (09:29)
--- NOTE | 2019-02-22 11:49 | PN ---
Teaching Attending Note Name of Resident: Cathy Martinez ATTENDING PHYSICIAN STATEMENT I saw and evaluated the patient. I reviewed the resident's note and discussed the case with the resident. I agree with the resident's findings and plan as documented. SUBJECTIVE: CP in R side of chest , better compared to yesterday, no SOB. no fever or chills. OBJECTIVE: NAD, awake, alert, cooperative CV: RRR, no MRG, no JVD Lungs: CTAB Ext : no edema or erythema, no tenderness ASSESSMENT AND PLAN: 68 y/o lady with h/o recent MV clipping ,Parkinson's, HTN, DM, HLD, systolic CHF, STEMI, reported splenic infarct, A fib,recent cath at [facility] ( unknown results or procedure), she presented with SOb and palpitations. she was found to be in A fib with RVR 1- CP yesterday, with new EKG changes. son to bring last cardiac w/u reports for guidance. - card to review and decide on next step 2- A fib with RVR: improved - cont BB - cont cardizem. - cont coumadin with lovenox for now. INR 1.52 2- Acute on chronic systolic heart failure. cont to be SOB and requires O2. - cont po lasix - cont ARB, and BB 3- DM : cont levemir and SSI 4- slightly elevated TSH. TFTs as out pt 5- Reported hx of splenic infarct: cont with coumadin goal INR 2-3 6- Dyskinesia: cont decreased dose of Sinemet , will decrease further on /6 cont decreased dose of fluphenazine , to be stopped as out pt 7- HLOC .
--- NOTE | 2019-02-22 16:33 | EKG ---
Test Reason : Blood Pressure : / mmHG Vent. Rate : 064 BPM Atrial Rate : 322 BPM P-R Int : 000 ms QRS Dur : 078 ms QT Int : 432 ms P-R-T Axes : 000 -49 -71 degrees QTc Int : 445 ms ATRIAL FLUTTER WITH VARIABLE A-V BLOCK LEFT ANTERIOR FASCICULAR BLOCK NONSPECIFIC ST AND T WAVE ABNORMALITY ABNORMAL ECG WHEN COMPARED WITH ECG OF 21-FEB-2019 08:39, ATRIAL FLUTTER HAS REPLACED ATRIAL FIBRILLATION Confirmed by BERONICA PICHARDO MD ([id number]) on 02/22/2019 4:33:06 PM Referred By: Confirmed By:BERONICA PICHARDO MD
--- NOTE | 2019-02-22 16:34 | EKG ---
Test Reason : Blood Pressure : / mmHG Vent. Rate : 074 BPM Atrial Rate : 075 BPM P-R Int : 000 ms QRS Dur : 078 ms QT Int : 434 ms P-R-T Axes : 000 -52 -81 degrees QTc Int : 481 ms ATRIAL FIBRILLATION LEFT ANTERIOR FASCICULAR BLOCK PROLONGED QT ABNORMAL ECG WHEN COMPARED WITH ECG OF 21-FEB-2019 17:25, ATRIAL FIBRILLATION HAS REPLACED ATRIAL FLUTTER Confirmed by KYLEE VEGA, BERONICA ([id number]) on 02/22/2019 4:33:56 PM Referred By: Nandini ANDREWS Confirmed By:BERONICA PICHARDO MD
[2019-02-22] MEDS: WARFARIN NA 5 MG TABLET (UD) PO SCH (17:59)
[2019-02-22] MEDS: ATORVASTATIN CA 10 MG TABLET (FP) PO SCH (21:17)
[2019-02-23] MEDS: INSULIN SLIDING SCALE (NOVOLOG) 1 VIAL SQ SCH ×3 (06:44→16:52)
[2019-02-23] MEDS: INSULIN (LEVEMIR) 100 UNITS/ML UNITS SQ SCH (06:48)
[2019-02-23] MEDS: METOPROLOL TARTRATE 50 MG TABLET (FP) PO SCH ×3 (06:48→21:15)
[2019-02-23 08:25] LABS: INR 1.53 (0.83-1.09); PROTHROMBIN TIME (PATIENT) 18.1 SEC (9.7-13.0)
[2019-02-23] MEDS ORDERED: PT OWN MED DRAWER 7, Y5N ONE (09:11)
[2019-02-23] MEDS: FUROSEMIDE 40 MG TABLET (FP) PO SCH (09:13)
[2019-02-23] MEDS: CARBIDOPA/LEVODOPA 25/100 TABLET (FP) PO SCH (09:13)
[2019-02-23] MEDS: VALSARTAN 40 MG TABLET (FP) PO SCH (09:14)
[2019-02-23] MEDS: ENOXAPARIN NA (PORCINE) 80 MG/0.8 ML DISP.SYRIN SQ SCH ×2 (09:14→21:16)
[2019-02-23] MEDS: FOLIC ACID 1 MG TABLET (FP) PO SCH (09:14)
[2019-02-23] MEDS: RANITIDINE HCL 150 MG TABLET (FP) PO SCH (09:14)
[2019-02-23] MEDS: FLUPHENAZINE 1 MG TABLET PO SCH (09:15)
[2019-02-23] MEDS: NORTRIPTYLINE HCL 10 MG CAPSULE PO SCH (09:15)
--- NOTE | 2019-02-23 09:21 | PN ---
Progress Note, Physician History of Present Illness: The patient is a 68-year-old female with a past medical history significant for CAD HTN, HLD, diastolic CHF, Cardiac arrest with ROSC, STEMI, Mitraclip ([facility]), Afib on Eliquis, splenic infarct and Parkinson's presents to the emergency department via after her son noticed her HR in the 120's-140s. Patient's son administered her meds but patient was still symptomatic with complaints of palpitations and SOB. Patient also complained of RUQ discomfort which then prompted son to take patient to the ER. In the ER patient was found to be in A- fib w/ RVR, and volume overloaded. She was given 40mg IV lasix and a Total 30mg IV cardizem. Patient says palpitations have resolved but still complains of RUQ discomfort. In ED: 1) CXR: new congestive changes 2) CT AP: mildy distended gallbladder. fecal retention. 3) 40 lasix IV - Current Medication List Current Medications: Active Medications Atorvastatin Calcium (Lipitor -) 10 mg PO [facility] Last Admin: 02/22/19 21:17 Dose: 10 mg Carbidopa/Levodopa (Sinemet 25/100 -) 1 each PO BID [facility] Last Admin: 02/23/19 09:13 Dose: 1 each Diltiazem HCl (Cardizem Cd -) 120 mg PO DAILY [facility] Last Admin: 02/23/19 09:13 Dose: 120 mg Enoxaparin Sodium (Lovenox -) 70 mg SQ BID [facility] Last Admin: 02/23/19 09:14 Dose: 70 mg Fluphenazine HCl (Prolixin) 0.5 mg PO DAILY [facility] Last Admin: 02/23/19 09:15 Dose: 0.5 mg Folic Acid (Folic Acid -) 1 mg PO DAILY [facility] Last Admin: 02/23/19 09:14 Dose: 1 mg Furosemide (Lasix -) 40 mg PO DAILY [facility] Last Admin: 02/23/19 09:13 Dose: 40 mg Insulin Aspart (Novolog Vial Sliding Scale -) 1 vial SQ TIDAC [facility]; Protocol Last Admin: 02/23/19 06:44 Dose: Not Given Insulin Detemir (Levemir Vial) 12 units SQ DAILY@0700 [facility] Last Admin: 02/23/19 06:48 Dose: 12 units Metoprolol Tartrate (Lopressor -) 100 mg PO TID [facility] Last Admin: 02/23/19 06:48 Dose: 100 mg Nortriptyline HCl (Pamelor -) 10 mg PO DAILY [facility] Last Admin: 02/23/19 09:15 Dose: 10 mg Polyethylene Glycol (Miralax (For Daily Use) -) 17 gm PO BID PRN PRN Reason: CONSTIPATION Last Admin: 02/23/19 09:19 Dose: 17 gm Ranitidine HCl (Zantac -) 300 mg PO DAILY [facility] Last Admin: 02/23/19 09:14 Dose: 300 mg Senna/Docusate Sodium (Pericolace -) 2 tablet PO HS PRN PRN Reason: CONSTIPATION Valsartan (Diovan -) 40 mg PO DAILY [facility] Last Admin: 02/23/19 09:14 Dose: 40 mg Warfarin Sodium (Coumadin -) 5 mg PO DAILY@1800 [facility] Last Admin: 02/22/19 17:59 Dose: 5 mg - Objective Vital Signs: Vital Signs Temperature 98.0 F 02/23/19 05:40 Pulse Rate 79 02/23/19 05:40 Respiratory Rate 20 02/23/19 05:40 Blood Pressure 119/70 02/23/19 05:40 O2 Sat by Pulse Oximetry (%) 99 02/22/19 21:00 Eyes: Yes: WNL, Conjunctiva Clear, EOM Intact HENT: Yes: WNL, Atraumatic, Normocephalic Neck: Yes: WNL, Supple, Trachea Midline Cardiovascular: Yes: WNL, Regular Rate and Rhythm Respiratory: Yes: WNL, Regular, CTA Bilaterally Gastrointestinal: Yes: WNL, Normal Bowel Sounds Genitourinary: Yes: WNL Musculoskeletal: Yes: WNL Extremities: Yes: WNL Edema: No Integumentary: Yes: WNL Neurological: Yes: WNL, Alert, Oriented ...Motor Strength: WNL Psychiatric: Yes: WNL Labs: CBC, BMP 02/21/19 05:30 02/21/19 05:30 INR, PTT INR 1.53 (0.83-1.09) H 02/23/19 05:30 Assessment/Plan - Problems (1) Atrial fibrillation with rapid ventricular response Assessment/Plan: On metoprolol and diltiazem for HR control. hematolgist has advised that pt not use a DOAC, and instead be placed on warfarin. Awaiting therapeutic INR New ekg changes Please obtain c. cath result from [facility] will decide re ischemic w/u after reviewing cath results. Code(s): I48.91 - UNSPECIFIED ATRIAL FIBRILLATION (2) Acute on chronic systolic and diastolic heart failure, NYHA class 1 Code(s): I50.43 - ACUTE ON CHRONIC COMBINED SYSTOLIC AND DIASTOLIC HRT FAIL (3) HTN (hypertension) Code(s): I10 - ESSENTIAL (PRIMARY) HYPERTENSION (4) Hyperlipidemia Code(s): E78.5 - HYPERLIPIDEMIA, UNSPECIFIED Qualifiers: Hyperlipidemia type: pure hypercholesterolemia Qualified Code(s): E78.00 - Pure hypercholesterolemia, unspecified; E78.0 - Pure hypercholesterolemia (5) S/P mitral valve repair Code(s): Z98.890 - OTHER SPECIFIED POSTPROCEDURAL STATES (6) T2DM (type 2 diabetes mellitus) Code(s): E11.9 - TYPE 2 DIABETES MELLITUS WITHOUT COMPLICATIONS (7) Anemia Code(s): D64.9 - ANEMIA, UNSPECIFIED (8) Hypothyroid Code(s): E03.9 - HYPOTHYROIDISM, UNSPECIFIED (9) Need for assistance due to unsteady gait Code(s): R26.89 - OTHER ABNORMALITIES OF GAIT AND MOBILITY (10) Parkinsonian tremor Code(s): G20 - PARKINSON'S DISEASE (11) Memory deficit Code(s): R41.3 - OTHER AMNESIA (12) Splenic infarct Code(s): D73.5 - INFARCTION OF SPLEEN (13) Diabetes Code(s): E11.9 - TYPE 2 DIABETES MELLITUS WITHOUT COMPLICATIONS
--- NOTE | 2019-02-23 14:05 | PN ---
Progress Note (short form) - Note Progress Note: Subjective: No CP , no SOB . feels better. Objective: Vital Signs: Last Vital Signs Temp Pulse Resp BP Pulse Ox 97.8 F 80 18 108/60 95 02/23/19 13:00 02/23/19 13:00 02/23/19 13:00 02/23/19 13:00 02/23/19 09:00 Laboratory Results - last 24 hr 02/22/19 02/23/19 02/23/19 17:26 05:30 05:34 PT with INR 18.10 H INR 1.53 H POC Glucometer 147 121 02/23/19 11:17 PT with INR INR POC Glucometer 214 Physical Exam: NAD, awake, alert, cooperative CV: RRR, no MRG, no JVD Lungs: CTAB Ext : no edema or erythema, no tenderness ASSESSMENT AND PLAN: 68 y/o lady with h/o recent MV clipping ,Parkinson's, HTN, DM, HLD, systolic CHF, STEMI, reported splenic infarct, A fib,recent cath at [facility] ( unknown results or procedure), she presented with SOb and palpitations. she was found to be in A fib with RVR 1- Recent CP with new EKG changes. son to bring last cardiac w/u reports for guidance. will try to send request to [facility] tomorrow - card to review and decide on next step 2- A fib with RVR: improved . tle reviewed. no events - cont BB - cont cardizem. - cont coumadin with lovenox for now. increase coumadin dose 2- Acute on chronic systolic heart failure. - cont po lasix - cont ARB, and BB 3- DM : cont levemir and SSI 4- slightly elevated TSH. TFTs as out pt 5- Reported hx of splenic infarct: cont with coumadin goal INR 2-3 6- Dyskinesia: cont decreased dose of Sinemet , will decrease t omorrow am cont decreased dose of fluphenazine , to be stopped as out pt 7- HLOC . Visit type - Emergency Visit Emergency Visit: Yes ED Registration Date: 02/17/19 Care time: The patient presented to the Emergency Department on the above date and was hospitalized for further evaluation of their emergent condition. - New Patient This patient is new to me today: No - Critical Care Critical Care patient: No
[2019-02-23] MEDS: WARFARIN NA 7.5 MG TABLET (FP) PO SCH (17:00)
[2019-02-23] MEDS: ATORVASTATIN CA 10 MG TABLET (FP) PO SCH (21:15)
[2019-02-24] MEDS ORDERED: MELATONIN 5 MG TABLETS PO ONE (00:47)
[2019-02-24] MEDS ORDERED: MAG HYDROX/AL HYDROX/SIMETH 30 ML UNIT-DOSE CUP PO ONE (00:48)
[2019-02-24] MEDS: METOPROLOL TARTRATE 50 MG TABLET (FP) PO SCH ×3 (06:49→21:55)
[2019-02-24] MEDS: INSULIN (LEVEMIR) 100 UNITS/ML UNITS SQ SCH (06:53)
[2019-02-24] MEDS: INSULIN SLIDING SCALE (NOVOLOG) 1 VIAL SQ SCH ×3 (06:54→16:28)
[2019-02-24 07:04] LABS: ANION GAP 6 MMOL/L (8-16); BLOOD UREA NITROGEN 23 mg/dL (7-18); CALCIUM 9.1 mg/dL (8.5-10.1); CHLORIDE 104 mmol/L (98-107); CO2 25 mmol/L (21-32); CREATININE 0.7 mg/dL (0.55-1.3); GLUCOSE,RANDOM 141 mg/dL (74-106); POTASSIUM 4.1 mmol/L (3.5-5.1); SODIUM 135 mmol/L (136-145)
[2019-02-24] MEDS ORDERED: PT OWN MED DRAWER 7, Y5N ONE (09:10)
[2019-02-24] MEDS: FOLIC ACID 1 MG TABLET (FP) PO SCH (09:52)
[2019-02-24] MEDS: FUROSEMIDE 40 MG TABLET (FP) PO SCH (09:53)
[2019-02-24] MEDS: RANITIDINE HCL 150 MG TABLET (FP) PO SCH (09:53)
[2019-02-24] MEDS: CARBIDOPA/LEVODOPA 25/100 TABLET (FP) PO SCH (09:53)
[2019-02-24] MEDS: VALSARTAN 40 MG TABLET (FP) PO SCH (09:53)
[2019-02-24] MEDS: NORTRIPTYLINE HCL 10 MG CAPSULE PO SCH (09:54)
[2019-02-24] MEDS: FLUPHENAZINE 1 MG TABLET PO SCH (09:54)
[2019-02-24] MEDS: ENOXAPARIN NA (PORCINE) 80 MG/0.8 ML DISP.SYRIN SQ SCH ×2 (09:55→21:54)
--- NOTE | 2019-02-24 13:26 | PN ---
Progress Note, Physician History of Present Illness: The patient is a 68-year-old female with a past medical history significant for CAD HTN, HLD, diastolic CHF, Cardiac arrest with ROSC, STEMI, Mitraclip ([facility]), Afib on Eliquis, splenic infarct and Parkinson's presents to the emergency department via after her son noticed her HR in the 120's-140s. Patient's son administered her meds but patient was still symptomatic with complaints of palpitations and SOB. Patient also complained of RUQ discomfort which then prompted son to take patient to the ER. In the ER patient was found to be in A- fib w/ RVR, and volume overloaded. She was given 40mg IV lasix and a Total 30mg IV cardizem. Patient says palpitations have resolved but still complains of RUQ discomfort. In ED: 1) CXR: new congestive changes 2) CT AP: mildy distended gallbladder. fecal retention. 3) 40 lasix IV - Current Medication List Current Medications: Active Medications Atorvastatin Calcium (Lipitor -) 10 mg PO HS [facility] Last Admin: 02/23/19 21:15 Dose: 10 mg Carbidopa/Levodopa (Sinemet 25/100 -) 1 each PO DAILY [facility] Stop: 02/26/19 10:01 Last Admin: 02/24/19 09:53 Dose: 1 each Diltiazem HCl (Cardizem Cd -) 120 mg PO DAILY [facility] Last Admin: 02/24/19 09:53 Dose: 120 mg Enoxaparin Sodium (Lovenox -) 70 mg SQ BID [facility] Last Admin: 02/24/19 09:55 Dose: 70 mg Fluphenazine HCl (Prolixin) 0.5 mg PO DAILY [facility] Last Admin: 02/24/19 09:54 Dose: 0.5 mg Folic Acid (Folic Acid -) 1 mg PO DAILY [facility] Last Admin: 02/24/19 09:52 Dose: 1 mg Furosemide (Lasix -) 40 mg PO DAILY [facility] Last Admin: 02/24/19 09:53 Dose: 40 mg Insulin Aspart (Novolog Vial Sliding Scale -) 1 vial SQ TIDAC [facility]; Protocol Last Admin: 02/24/19 11:52 Dose: 2 unit Insulin Detemir (Levemir Vial) 12 units SQ DAILY@0700 [facility] Last Admin: 02/24/19 06:53 Dose: 12 units Metoprolol Tartrate (Lopressor -) 100 mg PO TID [facility] Last Admin: 02/24/19 06:49 Dose: 100 mg Nortriptyline HCl (Pamelor -) 10 mg PO DAILY [facility] Last Admin: 02/24/19 09:54 Dose: 10 mg Polyethylene Glycol (Miralax (For Daily Use) -) 17 gm PO BID PRN PRN Reason: CONSTIPATION Last Admin: 02/23/19 09:19 Dose: 17 gm Ranitidine HCl (Zantac -) 300 mg PO DAILY [facility] Last Admin: 02/24/19 09:53 Dose: 300 mg Senna/Docusate Sodium (Pericolace -) 2 tablet PO HS PRN PRN Reason: CONSTIPATION Last Admin: 02/23/19 21:35 Dose: 2 tablet Valsartan (Diovan -) 40 mg PO DAILY [facility] Last Admin: 02/24/19 09:53 Dose: 40 mg Warfarin Sodium (Coumadin -) 7.5 mg PO DAILY@1800 [facility] Last Admin: 02/23/19 17:00 Dose: 7.5 mg - Objective Vital Signs: Vital Signs Temperature 98.1 F 02/24/19 09:18 Pulse Rate 86 02/24/19 09:18 Respiratory Rate 18 02/24/19 09:18 Blood Pressure 123/61 02/24/19 09:18 O2 Sat by Pulse Oximetry (%) 95 02/24/19 09:00 Eyes: Yes: WNL, Conjunctiva Clear, EOM Intact HENT: Yes: WNL, Atraumatic, Normocephalic Neck: Yes: WNL, Supple, Trachea Midline Cardiovascular: Yes: WNL, Regular Rate and Rhythm Respiratory: Yes: WNL, Regular, CTA Bilaterally Gastrointestinal: Yes: WNL, Normal Bowel Sounds Genitourinary: Yes: WNL Musculoskeletal: Yes: WNL Extremities: Yes: WNL Edema: No Integumentary: Yes: WNL Neurological: Yes: WNL, Alert, Oriented ...Motor Strength: WNL Psychiatric: Yes: WNL Labs: CBC, BMP 02/21/19 05:30 02/24/19 05:30 INR, PTT INR 1.53 (0.83-1.09) H 02/23/19 05:30 Assessment/Plan - Problems (1) Atrial fibrillation with rapid ventricular response Assessment/Plan: On metoprolol and diltiazem for HR control. hematolgist has advised that pt not use a DOAC, and instead be placed on warfarin. Awaiting therapeutic INR non obstructive cad 50% LAD o/w wnl 2017 as per resident report patient may be followed up as outpatient Code(s): I48.91 - UNSPECIFIED ATRIAL FIBRILLATION (2) Acute on chronic systolic and diastolic heart failure, NYHA class 1 Code(s): I50.43 - ACUTE ON CHRONIC COMBINED SYSTOLIC AND DIASTOLIC HRT FAIL (3) HTN (hypertension) Code(s): I10 - ESSENTIAL (PRIMARY) HYPERTENSION (4) Hyperlipidemia Code(s): E78.5 - HYPERLIPIDEMIA, UNSPECIFIED Qualifiers: Hyperlipidemia type: pure hypercholesterolemia Qualified Code(s): E78.00 - Pure hypercholesterolemia, unspecified; E78.0 - Pure hypercholesterolemia (5) S/P mitral valve repair Code(s): Z98.890 - OTHER SPECIFIED POSTPROCEDURAL STATES (6) T2DM (type 2 diabetes mellitus) Code(s): E11.9 - TYPE 2 DIABETES MELLITUS WITHOUT COMPLICATIONS (7) Anemia Code(s): D64.9 - ANEMIA, UNSPECIFIED (8) Hypothyroid Code(s): E03.9 - HYPOTHYROIDISM, UNSPECIFIED (9) Need for assistance due to unsteady gait Code(s): R26.89 - OTHER ABNORMALITIES OF GAIT AND MOBILITY (10) Parkinsonian tremor Code(s): G20 - PARKINSON'S DISEASE (11) Memory deficit Code(s): R41.3 - OTHER AMNESIA (12) Splenic infarct Code(s): D73.5 - INFARCTION OF SPLEEN (13) Diabetes Code(s): E11.9 - TYPE 2 DIABETES MELLITUS WITHOUT COMPLICATIONS
[2019-02-24 13:34] LABS: INR 1.89 (0.83-1.09); PROTHROMBIN TIME (PATIENT) 22.5 SEC (9.7-13.0)
--- NOTE | 2019-02-24 13:59 | PN ---
Teaching Attending Note Name of Resident: Kelvin Odonnell ATTENDING PHYSICIAN STATEMENT I saw and evaluated the patient. I reviewed the resident's note and discussed the case with the resident. I agree with the resident's findings and plan as documented. SUBJECTIVE: no fever or chills . No abd pain, no SOB. OBJECTIVE: NAD, awake, alert, cooperative CV: RRR, no MRG, no JVD Lungs: CTAB Ext : no edema or erythema, no tenderness ASSESSMENT AND PLAN: 68 y/o lady with h/o recent MV clipping ,Parkinson's, HTN, DM, HLD, systolic CHF, STEMI, reported splenic infarct, A fib,recent cath at [facility] ( unknown results or procedure), she presented with SOb and palpitations. she was found to be in A fib with RVR 1- Recent CP with new EKG changes. records obtained from [facility]. LAD stenosis of 50 % in 10/08. this was d/w Card and Recs to follow as out pt with no further inpatient w/u was on ASA at home., will ask card if need to continue 2- A fib with RVR: improved . tele reviewed. no events - cont BB - cont cardizem. - cont coumadin with lovenox for now. INR 1.8. expect therapeutic INR tomorrow - will ask PCP to follow INR 2- Acute on chronic systolic heart failure. - cont po lasix - cont ARB, and BB 3- DM: cont levemir and SSI 4- slightly elevated TSH. TFTs as out pt 5- Reported hx of splenic infarct: cont with brisging to coumadin goal INR 2-3 6- Dyskinesia: cont decreased dose of Sinemet once daily x 3 days then stopped cont decreased dose of fluphenazine , to be stopped as out pt. f/u with neuro 7- Initial UA with microscopic hematuria : will repeat to ensure resolution HLOC . Expect dc tomorrow to home with VNS
--- NOTE | 2019-02-24 15:08 | PN ---
Physical Exam: SUBJECTIVE: Patient seen and examined at bedside. overnight gerd palpitations. denies cp, fever, chills, n/v/d OBJECTIVE: Vital Signs Period Temp Pulse Resp BP Sys/Castillo Pulse Ox Last 24 Hr 97.0 F-98.8 F 67-86 16-20 104-123/52-64 95-95 GENERAL: A&Ox3, NAD HEAD: NCAT EYES: PERRL, EOMI ENT: moist mucous membranes NECK: Supple LUNGS: Diminished breath sounds at the bases, no wheezes, no crackles HEART: Irregularly Irregular, S1, S2 without murmur ABDOMEN: Soft, nontender, nondistended, + bowel sounds, no guarding EXTREMITIES: No edema NEUROLOGICAL: Cranial nerves II through XII grossly intact. SKIN: Warm, dry Laboratory Results - last 24 hr 02/23/19 02/24/19 02/24/19 16:49 05:30 05:57 PT with INR INR Sodium 135 L Potassium 4.1 Chloride 104 Carbon Dioxide 25 Anion Gap 6 L BUN 23 H Creatinine 0.7 Creat Clearance w eGFR 83.21 POC Glucometer 172 149 Random Glucose 141 H Calcium 9.1 02/24/19 02/24/19 11:44 12:23 PT with INR 22.50 H INR 1.89 H Sodium Potassium Chloride Carbon Dioxide Anion Gap BUN Creatinine Creat Clearance w eGFR POC Glucometer 187 Random Glucose Calcium Active Medications Generic Name Dose Route Start Last Admin Trade Name Freq PRN Reason Stop Dose Admin Atorvastatin Calcium 10 mg 02/16/19 22:00 02/23/19 21:15 Lipitor - PO 10 mg HS JESSICA Administration Carbidopa/Levodopa 1 each 02/24/19 10:00 02/24/19 09:53 Sinemet 25/100 - PO 02/26/19 10:01 1 each DAILY JESSICA Administration Diltiazem HCl 120 mg 02/17/19 21:15 02/24/19 09:53 Cardizem Cd - PO 120 mg DAILY JESSICA Administration Enoxaparin Sodium 70 mg 02/21/19 14:09 02/24/19 09:55 Lovenox - SQ 70 mg BID JESSICA Administration Fluphenazine HCl 0.5 mg 02/20/19 14:34 02/24/19 09:54 Prolixin PO 0.5 mg DAILY JESISCA Administration Folic Acid 1 mg 02/17/19 10:00 02/24/19 09:52 Folic Acid - PO 1 mg DAILY JESSICA Administration Furosemide 40 mg 02/20/19 11:15 02/24/19 09:53 Lasix - PO 40 mg DAILY JESSICA Administration Insulin Aspart 1 vial 02/16/19 16:30 02/24/19 11:52 Novolog Vial Sliding Scale - SQ 2 unit TIDAC JESSICA Administration Protocol Insulin Detemir 12 units 02/17/19 07:00 02/24/19 06:53 Levemir Vial SQ 12 units DAILY@0700 JESSICA Administration Metoprolol Tartrate 100 mg 02/16/19 22:00 02/24/19 13:27 Lopressor - PO 100 mg TID JESSICA Administration Nortriptyline HCl 10 mg 02/20/19 13:45 02/24/19 09:54 Pamelor - PO 10 mg DAILY [facility] Administration Polyethylene Glycol 17 gm 02/16/19 15:48 02/23/19 09:19 Miralax (For Daily Use) - PO 17 gm BID PRN Administration CONSTIPATION Ranitidine HCl 300 mg 02/17/19 10:00 02/24/19 09:53 Zantac - PO 300 mg DAILY [facility]ICA Administration Senna/Docusate Sodium 2 tablet 02/16/19 15:48 02/23/19 21:35 Pericolace - PO 2 tablet HS PRN Administration CONSTIPATION Valsartan 40 mg 02/17/19 10:00 02/24/19 09:53 Diovan - PO 40 mg DAILY JESSICA Administration Warfarin Sodium 7.5 mg 02/23/19 14:03 02/23/19 17:00 Coumadin - PO 7.5 mg DAILY@1800 JESSICA Administration IMAGING: -CXR: New congestive and atelectatic findings since 01/01/2019 -CT A/P with contrast: Mildly distended gallbladder without evidence of cholelithiasis or biliary ductal dilatation. Follow-up sonogram recommended. Fecal retention with no acute pathology within the abdomen or pelvis. -EKG: AFib with RVR, LAFB, VR 108, QTc 522 -EKG: AFib, LAD, VR 70, QTc 466 ASSESSMENT/PLAN: 68 y/o F with PMHx of AFib (on Coumadin), reported splenic infarct, HTN, DM, HLD , S & D CHF, STEMI (with use of IABP October 2018), cath at [facility] 09/2018 (50% stenosis LAD) ,Parkinson's, Mitral leaflets clipping presented with SOB and palpitations, found to be in AFib with RVR #Recent CP with new EKG changes - ?TWI in V4-V6 -Trop < 0.02 x2 - Cath report obtained from [facility]: non obstructive cad 50% stenosis LAD o/w wnl 2017 -patient may be followed up as outpatient per cardio with no further inpatient w /u. was on ASA at home., will ask card if need to continue #AFib with RVR, controlled -Continue Cardizem CD 120mg Daily, Metoprolol Tartrate 100mg PO TID -Cardiology consulted, Hematology consulted, Appreciate rec's -Warfarin 7.5mg PO Daily -c/w Bridge with Lovenox (1mg/kg BID)--Discussed with Dr. Cifuentes -INR 1.8. expect therapeutic INR tomorrow Goal of 2-3 -Tele -will ask PCP to follow INR #Acute on Chronic CHF exacerbation, Now euvolemic -Likely due to AFib with RVR -PO Furosemide 40mg Daily -cont ARB, and BB -Strict I/O's, Daily weight, Monitor Cr #Supratherapeutic INR, Resolved -Now Subtherapeutic, Resume AC noted above #Reported hx of splenic infarct: cont with bridging to coumadin goal INR 2-3 #RUQ discomfort + TBili mildly elevated, resolved -In the setting of hepatic congestion -Monitor for worsening discomfort and signs of obstruction #Initial UA with microscopic hematuria : will repeat to ensure resolution #HTN, Controlled -Metoprolol Tartrate 100mg PO TID, Valsartan 40mg PO Daily #Hypothyroidism -slightly elevated TSH. TFTs as outpt #HLD -Continue Atorvastatin 10mg PO HS #Parkinsons -c/w decreased dose of Carbidopa/Levodopa (25/100) qd x 3 days -cont decreased dose of fluphenazine , to be stopped as out pt. f/u with neuro -Neurology (Dr. Lassiter) Consulted, Appreciate rec's #DM -ISS BGMs ACHS -Detemir 12u SQ Daily #Constipation -Polyethylene Glycol 17gm PO BID PRN, Senna/Docusate 2 tablet PO HS PRN #GERD Zantac #FEN -No standing fluids -Hyponatremia, Hyperkalemia improving -Diabetic diet #PPx -DVT: SCDs dispo Expect dc tomorrow to home with VNS, pending INR Visit type - Emergency Visit Emergency Visit: Yes ED Registration Date: 02/17/19 Care time: The patient presented to the Emergency Department on the above date and was hospitalized for further evaluation of their emergent condition. - New Patient This patient is new to me today: Yes Date on this admission: 02/24/19 - Critical Care Critical Care patient: No
[2019-02-24] MEDS: WARFARIN NA 7.5 MG TABLET (FP) PO SCH (19:04)
[2019-02-24] MEDS: ATORVASTATIN CA 10 MG TABLET (FP) PO SCH (21:55)
[2019-02-25] MEDS: INSULIN (LEVEMIR) 100 UNITS/ML UNITS SQ SCH (06:33)
[2019-02-25] MEDS: METOPROLOL TARTRATE 50 MG TABLET (FP) PO SCH (06:33)
[2019-02-25] MEDS: INSULIN SLIDING SCALE (NOVOLOG) 1 VIAL SQ SCH ×2 (06:34→12:44)
[2019-02-25 08:22] LABS: INR 1.91 (0.83-1.09); PROTHROMBIN TIME (PATIENT) 22.7 SEC (9.7-13.0)
[2019-02-25] MEDS ORDERED: PT OWN MED DRAWER 7, Y5N ONE (10:36)
[2019-02-25] MEDS: VALSARTAN 40 MG TABLET (FP) PO SCH (11:05)
[2019-02-25] MEDS: FOLIC ACID 1 MG TABLET (FP) PO SCH (11:06)
[2019-02-25] MEDS: FUROSEMIDE 40 MG TABLET (FP) PO SCH (11:06)
[2019-02-25] MEDS: ENOXAPARIN NA (PORCINE) 80 MG/0.8 ML DISP.SYRIN SQ SCH (11:06)
[2019-02-25] MEDS: NORTRIPTYLINE HCL 10 MG CAPSULE PO SCH (11:09)
[2019-02-25] MEDS: FLUPHENAZINE 1 MG TABLET PO SCH (11:09)
[2019-02-25] MEDS: RANITIDINE HCL 150 MG TABLET (FP) PO SCH (11:10)
[2019-02-25] MEDS: CARBIDOPA/LEVODOPA 25/100 TABLET (FP) PO SCH (11:10)
--- NOTE | 2019-02-25 12:43 | PN ---
Progress Note, Physician Chief Complaint: Pt ambulated up and down hallway with assitance of therapist; no chest pain, n dyspnea. History of Present Illness: 68 yo woman (b. [place]), with history systolic (borderline reduced LVEF on 2018 ECHO) CHF, afib on eliquis, CAD (? hx CABG, though no signs on skin or Xray of this procedure), prior cardiac arrest, DM, Parkinson's disease, recent memory lapses, who presents with tachycardia and abd pain, subjective fevers. Denies N/V/D. Denies cp. +SOB. - - Current Medication List Current Medications: Active Medications Atorvastatin Calcium (Lipitor -) 10 mg PO HS [facility] Last Admin: 02/24/19 21:55 Dose: 10 mg Carbidopa/Levodopa (Sinemet 25/100 -) 1 each PO DAILY [facility] Stop: 02/26/19 10:01 Last Admin: 02/25/19 11:10 Dose: 1 each Diltiazem HCl (Cardizem Cd -) 120 mg PO DAILY [facility] Last Admin: 02/25/19 11:05 Dose: 120 mg Enoxaparin Sodium (Lovenox -) 70 mg SQ BID [facility] Last Admin: 02/25/19 11:06 Dose: 70 mg Fluphenazine HCl (Prolixin) 0.5 mg PO DAILY [facility] Last Admin: 02/25/19 11:09 Dose: 0.5 mg Folic Acid (Folic Acid -) 1 mg PO DAILY [facility] Last Admin: 02/25/19 11:06 Dose: 1 mg Furosemide (Lasix -) 40 mg PO DAILY [facility] Last Admin: 02/25/19 11:06 Dose: 40 mg Insulin Aspart (Novolog Vial Sliding Scale -) 1 vial SQ TIDAC [facility]; Protocol Last Admin: 02/25/19 06:34 Dose: 2 unit Insulin Detemir (Levemir Vial) 12 units SQ DAILY@0700 [facility] Last Admin: 02/25/19 06:33 Dose: 12 units Metoprolol Tartrate (Lopressor -) 100 mg PO TID [facility] Last Admin: 02/25/19 06:33 Dose: 100 mg Nortriptyline HCl (Pamelor -) 10 mg PO DAILY [facility] Last Admin: 02/25/19 11:09 Dose: 10 mg Polyethylene Glycol (Miralax (For Daily Use) -) 17 gm PO BID PRN PRN Reason: CONSTIPATION Last Admin: 02/23/19 09:19 Dose: 17 gm Ranitidine HCl (Zantac -) 300 mg PO DAILY [facility] Last Admin: 02/25/19 11:10 Dose: 300 mg Senna/Docusate Sodium (Pericolace -) 2 tablet PO HS PRN PRN Reason: CONSTIPATION Last Admin: 02/23/19 21:35 Dose: 2 tablet Valsartan (Diovan -) 40 mg PO DAILY [facility] Last Admin: 02/25/19 11:05 Dose: 40 mg Warfarin Sodium (Coumadin -) 7.5 mg PO DAILY@1800 [facility] Last Admin: 02/24/19 19:04 Dose: 7.5 mg - Objective Vital Signs: Vital Signs Temperature 98.4 F 02/25/19 10:00 Pulse Rate 89 02/25/19 10:00 Respiratory Rate 18 02/25/19 10:00 Blood Pressure 118/62 02/25/19 10:00 O2 Sat by Pulse Oximetry (%) 100 02/24/19 21:00 Constitutional: Yes: Calm Eyes: Yes: WNL Cardiovascular: Yes: S1 (varies in intensigy), S2 Respiratory: Yes: WNL Gastrointestinal: Yes: Soft ...Rectal Exam: Yes: Deferred Genitourinary: No: Anuria Musculoskeletal: Yes: Muscle Weakness Extremities: Yes: Cool Edema: No Peripheral Pulses WNL: Yes Integumentary: Yes: WNL Neurological: Yes: Alert, Weakness Psychiatric: Yes: Other (hx depression) Labs: CBC, BMP 02/21/19 05:30 02/24/19 05:30 INR, PTT INR 1.91 (0.83-1.09) H 02/25/19 05:35 Problem List - Problems (1) Atrial fibrillation with rapid ventricular response Assessment/Plan: Will change metoprolol to ER for better 24 hour coverage and easier compliance. Discontinue diltiazem (hx moderately reduced LVEF during [facility] admission for elevated TNI). Telemetry: AF with controlled VR. F/u BP and HR. On warfarin for anticoagulation; keep INR 2-3. (Off ASA while on long-term systemic anticoagulation). Code(s): I48.91 - UNSPECIFIED ATRIAL FIBRILLATION (2) Acute on chronic systolic and diastolic heart failure, NYHA class 1 Assessment/Plan: On metoprolol, valsartan. On furosemide (though son says she does not drink water "at all", and little in the way of other liquids at home). Presently lying flat without JVD, respiratory distress. F/u repeat CXR prior to continuing furosemide. ECHO: borderline reduced LVEF. F/u BUn/Cr, electrolytes, daily weight, Is and Os. Code(s): I50.43 - ACUTE ON CHRONIC COMBINED SYSTOLIC AND DIASTOLIC HRT FAIL (3) HTN (hypertension) Assessment/Plan: On metoprolol, valsartan, diltiazem, furosemide. Code(s): I10 - ESSENTIAL (PRIMARY) HYPERTENSION (4) Hyperlipidemia Assessment/Plan: On atorvastatin. F/u lipid profile. Code(s): E78.5 - HYPERLIPIDEMIA, UNSPECIFIED Qualifiers: Hyperlipidemia type: pure hypercholesterolemia Qualified Code(s): E78.00 - Pure hypercholesterolemia, unspecified; E78.0 - Pure hypercholesterolemia (5) S/P mitral valve repair Assessment/Plan: Clip placed recently at [facility]. Code(s): Z98.890 - OTHER SPECIFIED POSTPROCEDURAL STATES (6) T2DM (type 2 diabetes mellitus) Assessment/Plan: On antiglycemic agents. On ARB for systolic(though LVEF markedly improved post-coronary angiogram and MV clip) CHF, BP, DM (renal protection). Code(s): E11.9 - TYPE 2 DIABETES MELLITUS WITHOUT COMPLICATIONS (7) Anemia Code(s): D64.9 - ANEMIA, UNSPECIFIED (8) Hypothyroid Assessment/Plan: On Synthroid. F/u TFTs. (mildly elevated TSH). Code(s): E03.9 - HYPOTHYROIDISM, UNSPECIFIED (9) Need for assistance due to unsteady gait Code(s): R26.89 - OTHER ABNORMALITIES OF GAIT AND MOBILITY (10) Parkinsonian tremor Assessment/Plan: F/u with nuerologist re Parkinson's (her has severe Parkinson's, according to son) and memory lapses. Recent informtion indicates pt has many on several ?psychiatric medications for many years; r/o tardive dyskinesia. Code(s): G20 - PARKINSON'S DISEASE (11) Memory deficit Code(s): R41.3 - OTHER AMNESIA (12) Splenic infarct Assessment/Plan: by history; f/u records. 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 On warfarin for AF. Code(s): D73.5 - INFARCTION OF SPLEEN (13) Diabetes Code(s): E11.9 - TYPE 2 DIABETES MELLITUS WITHOUT COMPLICATIONS (14) Depression Assessment/Plan: Discussion with medical records analyst and student. Pt recnelty found to have been on multiple medications for many years. It will be important to f/u closely by neurologist and psychiatrist, with attention to possibly modifying doses or classes in ight of ?Parkinson''s, ? medication-related tardive dyskinesia. Pt may have Takatsubo's cardiomyopathy, with nonobstuctive CAD on 09/2018 coronary angiogram at [facility] with TNI 40. and transiently reduced LVEF that normalized (within 72 hrs). Prognosis is very good if depression is well- controlled, but risk of 2nd AL increased significantly if the psychiatric component is not treated. Code(s): F32.9 - MAJOR DEPRESSIVE DISORDER, SINGLE EPISODE, UNSPECIFIED
[2019-02-25 15:30] VITALS: BP 116/74; PULSE 77; TEMP 97.8
--- NOTE | 2019-02-25 17:11 | DS ---
Physical Exam: SUBJECTIVE: Patient seen and examined at bedside. no acute events overnight. denies cp, fever, chills, n/v/d OBJECTIVE: Vital Signs Period Temp Pulse Resp BP Sys/Castillo Pulse Ox Last 24 Hr 97.8 F-98.4 F 63-89 18-20 112-133/55-74 94-100 PHYSICAL EXAM GENERAL: A&Ox3, NAD HEAD: NCAT EYES: PERRL, EOMI ENT: moist mucous membranes NECK: Supple LUNGS: Diminished breath sounds at the bases, no wheezes, no crackles HEART: Irregularly Irregular, S1, S2 without murmur ABDOMEN: Soft, nontender, nondistended, + bowel sounds, no guarding EXTREMITIES: No edema NEUROLOGICAL: Cranial nerves II through XII grossly intact. SKIN: Warm, dry LABS Laboratory Results - last 24 hr 02/25/19 02/25/19 02/25/19 05:35 06:29 12:12 PT with INR 22.70 H INR 1.91 H POC Glucometer 152 166 IMAGING: -CXR: New congestive and atelectatic findings since 01/01/2019 -CT A/P with contrast: Mildly distended gallbladder without evidence of cholelithiasis or biliary ductal dilatation. Follow-up sonogram recommended. Fecal retention with no acute pathology within the abdomen or pelvis. -EKG: AFib with RVR, LAFB, VR 108, QTc 522 -EKG: AFib, LAD, VR 70, QTc 466 HOSPITAL COURSE: Date of Admission:02/17/19 Date of Discharge: 02/25/19 68 y/o F with PMHx of AFib (on Coumadin), reported splenic infarct, HTN, DM, HLD , S & D CHF, STEMI (with use of IABP October 2018), cath at [facility] 09/2018 (50% stenosis LAD) ,Parkinson's, Mitral leaflets clipping presented with SOB and palpitations, found to be in AFib with RVR #AFib with RVR and Supratherapeutic INR- HR now controlled -c/w Cardizem CD 120mg Daily, stopped metoprolol tartrate (lopressor) and started metoprolol succinate (toprol xl) 300mg once a day at ia -Cardiology consulted, Hematology consulted -warfarin initially held, then restarted w/ Lovenox [place] in hospital. Warfarin titrated to 7.5mg daily w/ INR 1.91 (Goal of 2-3). cont warfarin at dc and pt to f/u w/ pcp for INR check on 02/27/19 #Acute on Chronic CHF exacerbation, Now euvolemic -Likely due to AFib with RVR -PO Furosemide 40mg Daily -cont ARB, and BB #New CP with new EKG changes - ?TWI in V4-V6 -Trop < 0.02 x2 - Cath report obtained from [facility]: non obstructive cad 50% stenosis LAD o/w wnl 2017 -patient may be followed up as outpatient per cardio with no further inpatient w /u. was on ASA at home, now dcd per cardio recs, as pt on coumadin and in setting of non obstructive cath risk of bleed outweighs benefit of ASA in addition to warfarin. -pt prior hx of STEMI w/ trop leak my be explained by takosubo in light of non obstructive cath. ASA not indicated, pt may benefit from antidepressants and psych eval outpt. pt to f/u outpt cardio Sabino in 1 week #Reported hx of splenic infarct: c/w coumadin goal INR 2-3 #RUQ discomfort + TBili mildly elevated, resolved -In the setting of hepatic congestion #HTN, Controlled -Metoprolol Tartrate 100mg PO TID, Valsartan 40mg PO Daily #Hypothyroidism -slightly elevated TSH. TFTs as outpt in 6 weeks #Parkinsons -Sinemet dose decreased to once a day for 1 more day and then pt will stop taking -Fluphenazine was changed to 0.5mg. this will be stopped outpt as per neurologist advise, will f/w Dr. Plascencia -Neurology (Dr. Lassiter) Consulted, Appreciate rec's #DM Levemir 12 Units at night w/ ISS dispo Expect dc tomorrow to home with VNS, pending INR Minutes to complete discharge: 39 Discharge Summary Reason For Visit: SYSTOLIC CHF,PARKINSONIAN TREMOR,AFRIB W/RAPID Current Active Problems Acute on chronic systolic and diastolic heart failure, NYHA class 1 (Acute) Depression (Acute) Diabetes (Acute) Heart failure, chronic, with acute decompensation (Acute) Hepatic congestion (Acute) Memory deficit (Acute) Parkinson disease (Acute) Splenic infarct (Acute) Supratherapeutic INR (Acute) Atrial fibrillation with rapid ventricular response (Chronic) HTN (hypertension) (Chronic) Hyperlipidemia (Chronic) S/P mitral valve repair (Chronic) T2DM (type 2 diabetes mellitus) (Chronic) Condition: Improved - Instructions Diet, Activity, Other Instructions: You were admitted to the hospital because your heart rate was very fast and you were short of breath. You were found to be in Atrial fibrillation and started on a medication control your heart rate. Medication Changes: 1. stop metoprolol tartrate (lopressor) and start metoprolol succinate (toprol xl) 300mg once a day 2. Sinemet dose decreased to once a day for 1 more day and then stop taking 3. Stop Apixaban; start Warfarin 7.5mg daily 4. Fluphenazine was changed to 0.5mg. this will be stopped as per neurologist advise 5. Levemir 12 Units at night 6- stop aspirin . Take insulin as follows: blood sugar Insulin 101-150 0 151-200 2 201-250 4 251-300 6 301-350 8 351-400 10 > 400 12 and call MD Follow up with the following physicians: 1. Primary care physician in 1 week . - you need INR checked on 02/27/19 . results to be faxed to your primary doctor . the dose adjustment and the next INR check will be instructed by him. you need frequent INR Checks with recent adjustments to your coumadin to maintain an INR goal of 2-3. 2. Cardiology--Dr. Gallo in one week to further control your rate 3. Neurology--Dr. Plascencia to further manage your Parkinsons dementia. Please discuss discontinuing your Fluphenazine with your neurologist. You will need to have your thyroid hormone (TSH) checked again in 6 weeks as your TSH was high. Please further discuss with your PCP. Please continue to eat the same amount of leafy green vegetables; Increasing or decreasing the amount you eat can cause fluctuation in your INR Level and lead to bleeding or excessive clotting. Continue all your other medications as prescribed Please return to the ER if you have any signs or symptoms of chest pain, shortness of breath, uncontrollable fever, chills, nausea, vomiting, numbness, tingling, or weakness in any part of your body, changes in vision, slurred speech, changes in speech/gait, or dizziness. Please return to the ER if symptoms persist, worsen, or new symptoms arise. Referrals: Marco Antonio Plascencia DO [Staff Physician] - 1 Week Wilfrid Gallo MD [Staff Physician] - 1 Week Poncho Amaro [Other] - 02/27/19 Disposition: VNS/HOME HEALTH CARE - Home Medications Comprehensive Discharge Medication List: Ambulatory Orders Famotidine [Pepcid] 40 mg PO DAILY 02/18/19 Folic Acid 1 mg PO DAILY 02/18/19 Furosemide [Lasix] 40 mg PO DAILY 02/18/19 Sennosides/Docusate Sodium [Senna Plus Tablet] 2 each PO HS 02/18/19 Simvastatin [Zocor -] 20 mg PO HS 02/18/19 Valsartan [Diovan] 40 mg PO DAILY 02/18/19 Fluphenazine HCl 0.5 mg PO DAILY 02/20/19 Nortriptyline HCl [Pamelor -] 10 mg PO DAILY 02/20/19 Carbidopa/Levodopa 25/100 [Sinemet 25/100 -] 1 each PO DAILY 1 Days #1 tablet Insulin (Levemir) [Levemir Vial] 12 units SQ DAILY@0700 units 02/25/19 Insulin Sliding Scale [Novolog Vial Sliding Scale -] See Protocol SQ TIDAC #1 vial 02/25/19 Metoprolol Succinate [Toprol XL -] 300 mg PO DAILY 30 Days #90 tab.sr.24h Miscellaneous Medical Supply [Outpatient Order] 1 each ASDIR #1 misc Warfarin Na [Coumadin -] 7.5 mg PO DAILY@1800 5 Days #5 tablet 02/25/19 This patient is new to me today: Yes Date on this admission: 02/25/19 Emergency Visit: Yes ED Registration Date: 02/17/19 Care time: The patient presented to the Emergency Department on the above date and was hospitalized for further evaluation of their emergent condition. Critical Care patient: No - Discharge Referral Referred to [facility] Med P.C.: No
[2019-02-25] MEDS ORDERED: MAG HYDROX/AL HYDROX/SIMETH 30 ML UNIT-DOSE CUP PO ONE (17:29)
[2019-02-25] MEDS: WARFARIN NA 7.5 MG TABLET (FP) PO SCH (17:37)
--- NOTE | 2019-02-25 17:52 | PN ---
Teaching Attending Note Name of Resident: Daniel James ATTENDING PHYSICIAN STATEMENT I saw and evaluated the patient. I reviewed the resident's note and discussed the case with the resident. I agree with the resident's findings and plan as documented. SUBJECTIVE: No fever or chills. No cp, no SOB. OBJECTIVE: NAD, awake, alert, cooperative CV: RRR, no MRG, no JVD Lungs: CTAB Ext : no edema or erythema, no tenderness ASSESSMENT AND PLAN: 68 y/o lady with h/o recent MV clipping ,Parkinson's, HTN, DM, HLD, systolic CHF, STEMI, reported splenic infarct, A fib,recent cath at [facility] ( unknown results or procedure), she presented with SOb and palpitations. she was found to be in A fib with RVR 1- Recent CP with new EKG changes. records obtained from [facility]. LAD stenosis of 50 % in 10/08. this was d/w Card and Recs to follow as out pt with no further inpatient w/u was on ASA at home., will ask card if need to continue 2- A fib with RVR: improved. - cont BB ( switched to toprol 300 mg daily ) - cont cardizem. - cont coumadin. 7.5 daily. INR on 02/27. to be faxed to PCP . coumadin dose might need to be adjusted shortly to avoid high INR - PCP ( Dr. Isaac ) was called by art gallery internship, he will be following INR. and was updated about pt 2- Acute on chronic systolic heart failure. - cont po lasix - cont ARB, and BB 3- DM: cont levemir and SSI at dc 4- slightly elevated TSH. TFTs as out pt 5- Reported hx of splenic infarct: cont with coumadin 6- Dyskinesia: cont decreased dose of Sinemet once daily for one more day then stop cont decreased dose of fluphenazine , to be stopped as out pt. f/u with neuro 7- UA . as out pt as she had microscopic hematuria dispo : dc home with VNS.
== END 2019-02-25 17:44 | disposition home health service (06) | DRG 308 ==
LOC: JER 06:19 → UNDOADMOB 11:30 → JERBED 11:30 → INTOOBSV 11:30 → JERBED 12:27 → J4W 02-17 14:21 → OBSVTOIN 02-17 15:21
PROVIDERS: ADMIT Internal Medicine; ATTEND Internal Medicine
DX: I48.1 Persistent atrial fibrillation (principal); I50.43 Acute on chronic combined systolic (congestive) and diastolic (congestive) heart failure; E87.1 Hypo-osmolality and hyponatremia; I25.10 Atherosclerotic heart disease of native coronary artery without angina pectoris; E11.9 Type 2 diabetes mellitus without complications; E87.5 Hyperkalemia; K82.8 Other specified diseases of gallbladder; K59.00 Constipation, unspecified; E03.9 Hypothyroidism, unspecified; G20 Parkinson's disease; R79.1 Abnormal coagulation profile; K76.1 Chronic passive congestion of liver; E78.5 Hyperlipidemia, unspecified; F03.90 Unspecified dementia, unspecified severity, without behavioral disturbance, psychotic disturbance, mood disturbance, and anxiety; I11.0 Hypertensive heart disease with heart failure; D64.9 Anemia, unspecified; R41.3 Other amnesia; R26.89 Other abnormalities of gait and mobility; I43 Cardiomyopathy in diseases classified elsewhere; D73.5 Infarction of spleen; F02.80 Dementia in other diseases classified elsewhere, unspecified severity, without behavioral disturbance, psychotic disturbance, mood disturbance, and anxiety; F32.9 Major depressive disorder, single episode, unspecified; I25.2 Old myocardial infarction; R00.0 Tachycardia, unspecified; R07.89 Other chest pain; R31.9 Hematuria, unspecified; Z95.2 Presence of prosthetic heart valve; Z95.1 Presence of aortocoronary bypass graft; Z79.4 Long term (current) use of insulin
CPT/HCPCS: 36415; 70551-TC; 71045-TC-FY; 74177-TC; 80048; 80053; 81003; 82550; 82962; 83735; 83880; 84100; 84443; 84484; 85025; 85610; 85730; 87086; 93005; 93010; 97116-GP; 97162-GP; 99285-25; G0378

== ENCOUNTER 2019-12-20 06:55 | Inpatient (IN) | payer OTHER ==
[2019-12-20 06:59] VITALS: BMI 29.2
[2019-12-20] MEDS ORDERED: SODIUM CHLORIDE 1,000 ML IV SCH (07:00)
[2019-12-20] MEDS ORDERED: METOPROLOL TARTRATE 5 MG/5 ML VIAL IVPUSH ONE (07:57)
--- NOTE | 2019-12-20 08:08 | PDOC ---
History of Present Illness - General Chief Complaint: Injury Stated Complaint: FALL Time Seen by Provider: 12/20/19 07:04 History Source: Patient Exam Limitations: Clinical Condition - History of Present Illness Initial Comments: History limited bc patient is a poor historian. Patient found down in the freezing cold unable to get up. A neighbor called EMS and said he saw the p atient lying down in the freezing cold for around 15 minutes this morning. When EMS arrived the patient was unable to get up in the street. Nasima Lamb is a 68 yo F w a hx of Parkinson's, a-fib, CAD s/p CABG, cardiac arrest s/p ROSC, T2DM, HTN/HLD, S & D CHF, STEMI with use of IABP (October/2018) , splenic infarct, MR post Sandy-Clip presents to the [facility] er after she fell down and collapsed on the street this morning at 6 am. She states she was walking home and all of a sudden felt weak, collapsed, fell down and hit her head. She does not remember well what happened or how it happened. Here in the ER she denies having a headache or any chest pain. She denies being short of breath. She states she is not currently in any pain. PCP: Dr. Poncho Amaro ([facility]) PSH: CABG Social Hx: Denies smoking, drinking, or other substance usage. Lives with who is bedbound Allergies: NKA, NKDA Past History - Past Medical History Allergies/Adverse Reactions: Allergies Allergy/AdvReac Type Severity Reaction Status Date / Time No Known Allergies Allergy Verified 12/20/19 07:00 Home Medications: Ambulatory Orders Famotidine [Pepcid] 40 mg PO DAILY 02/18/19 Folic Acid 1 mg PO DAILY 02/18/19 Furosemide [Lasix] 40 mg PO DAILY 02/18/19 Sennosides/Docusate Sodium [Senna Plus Tablet] 2 each PO HS 02/18/19 Simvastatin [Zocor -] 20 mg PO HS 02/18/19 Valsartan [Diovan] 40 mg PO DAILY 02/18/19 Fluphenazine HCl 0.5 mg PO DAILY 02/20/19 Nortriptyline HCl [Pamelor -] 10 mg PO DAILY 02/20/19 Carbidopa/Levodopa 25/100 [Sinemet 25/100 -] 1 each PO DAILY 1 Days #1 tablet 02/25/19 Insulin (Levemir) [Levemir Vial] 12 units SQ DAILY@0700 units 02/25/19 Insulin Sliding Scale [Novolog Vial Sliding Scale -] See Protocol SQ TIDAC #1 vial 02/25/19 Metoprolol Succinate [Toprol XL -] 300 mg PO DAILY 30 Days #90 tab.sr.24h 02/25/19 Miscellaneous Medical Supply [Outpatient Order] 1 each MC ASDIR #1 misc 02/25/19 Warfarin Na [Coumadin -] 7.5 mg PO DAILY@1800 5 Days #5 tablet 02/25/19 Anemia: No Asthma: No Cancer: No Cardiac Disorders: Yes (a fib, recent cardiac cath, MV disease) CVA: No COPD: No CHF: Yes Dementia: Yes Diabetes: Yes GI Disorders: No Disorders: No HTN: Yes Hypercholesterolemia: Yes Liver Disease: No Seizures: No Thyroid Disease: No - Surgical History Abdominal Surgery: No Appendectomy: No Cardiac Surgery: Yes (mitral valve clipping.) Cholecystectomy: No Lung Surgery: No Neurologic Surgery: No Orthopedic Surgery: No - Immunization History Immunization Up to Date: Yes - Psycho Social/Smoking Cessation Hx Smoking History: Unknown if ever smoked Have you smoked in the past 12 months: No Information on smoking cessation initiated: No Hx Alcohol Use: No Drug/Substance Use Hx: No Substance Use Type: None Hx Substance Use Treatment: No Review of Systems - Review of Systems Able to Perform ROS?: No (poor historian) *Physical Exam - Vital Signs Last Vital Signs Temp Pulse Resp BP Pulse Ox 99.4 F 134 H 18 117/84 96 12/20/19 06:56 12/20/19 06:56 12/20/19 06:56 12/20/19 06:56 12/20/19 06:56 - Physical Exam GENERAL: Looks unkept. Not well groomed. Poor oral hygiene. Long leg hairs. No apparent distress. HEENT: Normocephalic, atraumatic. PERRL, EOM intact. CARDIOVASCULAR: Tachycardic rate and irregular rhythm. PULMONARY: bibasilar crackles. No wheezing or rhonchi. ABDOMEN: Soft, non-distended, non-tender. EXTREMITIES: limited ROM in lower extremities. SKIN: Warm, dry. No rash NEUROLOGICAL: Alert, awake, appropriate. Cranial nerves 2-12 intact. No deficits to light touch in face, upper extremities and lower extremities. No motor deficits in the in face and upper extremities. Weakness in bilateral lower extremities. Normal speech. ED Treatment Course - LABORATORY CBC & Chemistry Diagram: 12/20/19 07:36 12/20/19 07:26 - RADIOLOGY Radiology Studies Ordered: Category Date Time Status CHEST X-RAY PORTABLE* [RAD] Stat Radiology 12/20/19 07:31 Completed Medical Decision Making - Medical Decision Making History limited patient is a poor historian. Patient found down in the freezing cold unable to get up. A neighbor called EMS and said he saw the patient lying down in the freezing cold for around 15 minutes this morning. When EMS arrived the patient was unable to get up in the street. Nasima Lamb is a 68 yo F w a hx of Parkinson's, a-fib, CAD s/p CABG, cardiac arrest s/p ROSC, T2DM, HTN/HLD, S & D CHF, STEMI with use of IABP (October/2018) , splenic infarct, MR post Sandy-Clip presents to the [facility] er after she fell down and collapsed on the street this morning at 6 am. She states she was walking home and all of a sudden felt weak, collapsed, fell down and hit her head. She does not remember well what happened or how it happened. Here in the ER she denies having a headache or any chest pain. She denies being short of breath. She states she is not currently in any pain. Vital Signs Temp Pulse Resp BP Pulse Ox 99.4 F 134 H 18 117/84 96 12/20/19 06:56 12/20/19 06:56 12/20/19 06:56 12/20/19 06:56 12/20/19 06:56 DDx IBNLT: A-fib/flutter, ACS, CVA/TIA, electrolyte/metabolic distrubance, Sep sis, UTI, dehydration, rhabdo Plan: Sepsis, Stroke, Cardio workup and admission to hospital EKG: Shows A-fib with RVR - Patient takes 300 mg metoprolol daily at home - Controlling rate with 5mg IV lopressor and [address] Head, chest, abdomen, pelvis: No brain bleed, no PE, no SBO, no diverticu litis, no appendicitis, no gross infections or large fluid collections. Dispo: Telemetry for Syncope and collapse Discharge - Discharge Information Problems reviewed: Yes Clinical Impression/Diagnosis: Syncope and collapse Condition: Stable - Admission Yes - Follow up/Referral - Patient Discharge Instructions - Post Discharge Activity
[2019-12-20] MEDS ORDERED: METOPROLOL TARTRATE 5 MG/5 ML VIAL ONE (08:19)
[2019-12-20 08:23] LABS: BASO % 0.8 % (0-2.0); EOS % 0.5 % (0-4.5); HEMOGLOBIN 13.6 GM/dL (10.7-15.3); MCH 27.7 pg (25.7-33.7); MCHC 33.2 g/dl (32.0-36.0); MEAN CELL VOLUME 83.4 fl (80-96); MEAN PLT VOLUME 9.4 fl (7.5-11.1); MONO % 5.6 % (3.8-10.2); NEUT % 76.1 % (42.8-82.8); PLATELET COUNT 363 K/MM3 (134-434); RBC 4.92 M/mm3 (3.60-5.2); RDW 14.4 % (11.6-15.6); WHITE BLOOD COUNT 10.5 K/mm3 (4.0-10.0)
[2019-12-20] MEDS ORDERED: SODIUM CHLORIDE 0.9% 500 ML INFUS.BAG IV ONE (08:32)
[2019-12-20 08:36] LABS: INR 1.29 (0.83-1.09); PROTHROMBIN TIME (PATIENT) 15.3 SEC (9.7-13.0)
[2019-12-20 08:39] LABS: ACTIVATED PTT 36.9 SECONDS (25.2-36.5)
[2019-12-20 08:52] LABS: ALBUMIN 3.2 g/dl (3.4-5.0); ALK PHOS 120 U/L (45-117); ANION GAP 6 MMOL/L (8-16); BILIRUBIN,TOTAL 0.5 mg/dL (0.2-1); BLOOD UREA NITROGEN 13.9 mg/dL (7-18); CALCIUM 9.4 mg/dL (8.5-10.1); CHLORIDE 101 mmol/L (98-107); CHOLESTEROL 230 mg/dL (50-200); CO2 27 mmol/L (21-32); CREATININE 0.9 mg/dL (0.55-1.3); GLUCOSE,RANDOM 225 mg/dL (74-106); HDL CHOLESTEROL 36 mg/dL (40-60); LDL CHOLESTEROL (ONLY SJRH) 166 mg/dL (5-100); POTASSIUM 4.6 mmol/L (3.5-5.1); SGOT/AST 24 U/L (15-37); SGPT/ALT 19 U/L (13-61); SODIUM 134 mmol/L (136-145); TOT PROT 8.2 g/dl (6.4-8.2); TRIGLYCERIDES 165 mg/dL (0-150)
--- NOTE | 2019-12-20 09:26 | PDOC ---
Attending Attestation - Resident Resident Name: Kiel Lewis - ED Attending Attestation I have performed the following: I have examined & evaluated the patient, The case was reviewed & discussed with the resident, I agree w/resident's findings & plan, Exceptions are as noted - HPI HPI: 12/20/19 09:12 68 years old with past medical history significant for Parkinson's A. fib CAD status post CABG cardiac arrest status post Rask type 2 diabetes hypertension hyperlipidemia STEMI splenic infarct, MR status post clip presents to the emergency department after collapse versus syncope patient with poor recollection/poor historian unable to give adequate history denies headache chest pain shortness of breath at this time history limited by Parkinson's dementia - Physicial Exam PE: 12/20/19 09:12 Vitals: Triage Vital signs reviewed General Appearance: Dry Mucous membranes Head: Atraumatic, Cardiac: Irregularly irregular tachycardic Lungs: Crackles at the bases Abdomen: Soft, non distended, normal bowel sounds, non tender to palpation Extremities: Full range of motion to all extremities, no cyanosis, clubbing, or edema Skin: Warm and dry, no rashes or lesions, no rash, no petechiae Neuro: Moves all extremities Psych: Normal mood, normal affect - Critical Care Time Total Critical Care Time: 45 Critical Care Statement: The care of this patient involved high complexity decision making to prevent further life threatening deterioration of the patient 's condition and/or to evaluate & treat vital organ system(s) failure or risk of failure. - Medical Decision Making 12/20/19 15:25 69 years old multiple medical problems presents with chest pain and syncope versus collapse Initially presented with A. fib with RVR treated with IV Lopressor now rate controlled CTA ordered to rule out PE given A. fib with RVR syncope and collapse CT with no PE noted Labs otherwise within normal limits Given multiple comorbidities high risk patient with syncopal presentation will observe for further management. Heart Score/ECG Review - ECG Impressions Comment:: 12/20/19 15:27 EKG performed at 742 demonstrates A. fib with RVR left anterior fascicular block nonspecific ST abnormalities Turbid by me.
[2019-12-20 09:47] LABS: URINE APPEARANCE CLEAR; URINE BILIRUBIN NEGATIVE (NEGATIVE); URINE COLOR YELLOW; URINE GLUCOSE (UA) 1+ (NEGATIVE); URINE KETONE TRACE (NEGATIVE); URINE LEUK ESTERASE NEGATIVE (NEGATIVE); URINE NITRITE NEGATIVE (NEGATIVE); URINE PROTEIN TRACE (NEGATIVE); URINE UROBILINOGEN 0.2 mg/dL (0.2-1.0)
[2019-12-20] MEDS ORDERED: ONDANSETRON 4 MG/2 ML VIAL IVPUSH ONE (11:01)
[2019-12-20] MEDS ORDERED: ONDANSETRON 4 MG/2 ML VIAL ONE (11:08)
[2019-12-20 13:13] LABS: EPI CELLS 0.2 /HPF (0-5/HPF); HYALINE CASTS 1 /lpf (0-8); URINE BACTERIA 33.9 /hpf (NEGATIVE); URINE RBC 1 /hpf (0-4); URINE WBC 0 /hpf (0-5)
--- NOTE | 2019-12-20 13:22 | EKG ---
Test Reason : Blood Pressure : / mmHG Vent. Rate : 136 BPM Atrial Rate : 379 BPM P-R Int : 000 ms QRS Dur : 068 ms QT Int : 326 ms P-R-T Axes : 000 -60 239 degrees QTc Int : 490 ms ATRIAL FLUTTER WITH VARIABLE A-V BLOCK LEFT ANTERIOR FASCICULAR BLOCK NONSPECIFIC ST AND T WAVE ABNORMALITY ABNORMAL ECG Confirmed by DEB HATCH MD ([id number]) on 12/20/2019 1:21:58 PM Referred By: DEACON Confirmed By:DEB HATCH MD
[2019-12-20] MEDS ORDERED: ACETAMINOPHEN 325 MG TABLET (FP) PO PRN (17:34)
--- NOTE | 2019-12-20 21:21 | CONSULT ---
Consult - text type - Consultation Consultation Note: ORTHOPEDIC SURGERY CONSULTATION NOTE Department of Orthopedic Surgery HISTORY OF PRESENT ILLNESS History limited patient is a poor historian. Patient found down in the freezing cold unable to get up. A neighbor called EMS and said he saw the patient lying down in the freezing cold for around 15 minutes this morning. When EMS arrived the patient was unable to get up in the street. Nasima Lamb is a 68 yo F w a hx of Parkinson's, a-fib, CAD s/p CABG, cardiac arrest s/p ROSC, T2DM, HTN/HLD, S & D CHF, STEMI with use of IABP (October/2018 ) , splenic infarct, MR post Sandy-Clip presents to the [facility] after she fell down and collapsed on the street this morning at 6 am. She states she was walking home and all of a sudden felt weak, collapsed, fell down and hit her head. She does not remember well what happened or how it happened. She denies having a headache or any chest pain. She denies being short of breath. The orthopedic service was consulted for bilateral knee pain. Denies numbness, tingling or other constitutional complaints. Denies tobacco use, drug use, alcohol abuse. FAMILY HISTORY non-contributory REVIEW OF SYMPTOMS A twelve-point review of systems was performed and was negative except as noted in HPI. PHYSICAL EXAM Constitutional: Alert and oriented to person, place, and time. Appears well- developed and well-nourished. No acute distress, appropriate mood and affect. Right Upper Extremity: Skin warm, dry, and intact; no lesions, rashes or ulcers noted. Muscle mass equal and symmetric to contralateral side. No atrophy noted. No masses or effusions noted. No tenderness to palpation all joints; nontender throughout rest of extremity. Full passive and active ROM, free from pain. Joints stable with no pathologic laxity. M/R/U/MSK/AX motor intact; SILT distally; 2+ radial pulses; Cap refill brisk. Tone and reflexes normal. Left Upper Extremity: Skin warm, dry, and intact; no lesions, rashes or ulcers noted. Muscle mass equal and symmetric to contralateral side. No atrophy noted. No masses or effusions noted. No tenderness to palpation all joints; nontender throughout rest of extremity. Full passive and active ROM, free from pain. Joints stable with no pathologic laxity. M/R/U/MSK/AX motor intact; SILT distally; 2+ radial pulses; Cap refill brisk. Tone and reflexes normal. Right Lower Extremity: Skin warm, dry, and intact; no lesions, rashes or ulcers noted. Muscle mass equal and symmetric to contralateral side. No atrophy noted. Mild effusion present; No masses noted. Tender to palpation the medial and lateral joint space. nontender throughout rest of extremity. No cords or calf tenderness; Able to SLR, negative log roll. No significant calf/ankle edema. Passive and active ROM of the knee 0 - 120, free from pain. Joints stable with no pathologic laxity. EHL/TA/GS motor intact ; SILT distally; 2+ DP pulses; Cap refill brisk. Tone and reflexes normal. Left Lower Extremity: Skin warm, dry, and intact; no lesions, rashes or ulcers noted. Muscle mass equal and symmetric to contralateral side. No atrophy noted. Mild effusion present; No masses noted. Tender to palpation the medial and lateral joint space. nontender throughout rest of extremity. No cords or calf tenderness; Able to SLR, negative log roll. No significant calf/ankle edema. Passive and active ROM of the knee 0 - 120, free from pain. Joints stable with no pathologic laxity. EHL/TA/GS motor intact ; SILT distally; 2+ DP pulses; Cap refill brisk. Tone and reflexes normal. 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 Cardio/Vascular AFIB,CHF,HTN Social History Smoking history Unknown if ever smoked Hx Alcohol Use No Allergies Allergy/AdvReac Type Severity Reaction Status Date / Time No Known Allergies Allergy Verified 12/20/19 07:00 Active Medications Generic Name Dose Route Start Last Admin Trade Name Freq PRN Reason Stop Dose Admin Acetaminophen 650 mg 12/20/19 17:34 Tylenol - PO Q6H PRN PAIN LEVEL 4 - 6 Atorvastatin Calcium 20 mg 12/20/19 22:00 Lipitor - PO HS [facility] Docusate Sodium 100 mg 12/20/19 22:00 Colace - PO BID [facility] Enoxaparin Sodium 40 mg 12/21/19 10:00 Lovenox - SQ DAILY [facility] Insulin Aspart 1 vial 12/20/19 22:00 Novolog Vial Sliding Scale - SQ ACHS [facility] Protocol Metoprolol Succinate 100 mg 12/21/19 15:00 Toprol Xl - PO DAILY JESSICA Senna 2 tab 12/20/19 22:00 Senna - PO HS JESSICA Valsartan 40 mg 12/21/19 10:00 Diovan - PO DAILY JESSICA Vital Signs (last) Temp Pulse Resp BP Pulse Ox 97.8 F 86 20 126/76 93 L 12/20/19 20:20 12/20/19 20:20 12/20/19 20:20 12/20/19 20:20 12/20/19 20:30 Intake and Output 12/18/19 12/19/19 12/20/19 23:59 23:59 23:59 Output Total 300 Balance -300 Output: Urine 300 Straight Cath 300 Other: Voiding Method Bedpan Weight 160 lb Height 5 ft 2 in Body Mass Index (BMI) 29.2 Weight Measurement Method Stated by Patient Weight Measurement Method Estimated by Staff Laboratory 12/20/19 07:36 12/20/19 07:26 PT with INR 15.30 SEC (9.7-13.0) H 12/20/19 07:26 PTT (Actin FS) 36.9 SECONDS (25.2-36.5) H 12/20/19 07:26 IMAGING No imaging available ASSESSMENT AND PLAN Ms. Lamb is a 69 year old female presenting status post syncopal fall with bilateral knee pain. Patient has We have reviewed the imaging and clinical findings in detail, as well as their potential implications. After appropriate informed discussion, we agreed on the following plan: 1. Pain control 2. DVT ppx 3. WBAT b/l LE 4. F/U Bilateral Knee x-rays 5. Physical therapy All questions were answered. Thank you for involving our team in the care of this patient.
[2019-12-20] MEDS ORDERED: HEPARIN NA (PORCINE) 5,000 UNITS/ML 1ML VIAL SQ SCH (22:00)
[2019-12-20] MEDS: SENNOSIDES 8.6MG TABLET (FP) PO SCH (22:13)
[2019-12-20] MEDS: ATORVASTATIN CA 20 MG TABLET (FP) PO SCH (22:13)
[2019-12-20] MEDS: INSULIN SLIDING SCALE (NOVOLOG) 1 VIAL SQ SCH (22:13)
[2019-12-20] MEDS: DOCUSATE SODIUM 100 MG CAPSULE (FP) PO SCH (22:13)
--- NOTE | 2019-12-20 23:41 | HP ---
Admitting History and Physical - Admission Chief Complaint: s/p fall History of Present Illness: 69 year old F with h/o HTN, DMII, hep C (treated), CHF, Parkinson's disease, STEMI with use of IABP (October/2018) , splenic infarct, MR post Sandy-Clip, Afib (on coumadin) who presents to ED on the morning of due to fall and inability to get up from the ground. An khmer splunk consultant was used to glean a better understanding of what occured. Ms. Lamb reports three falls within the last 2 months, without loss of consciousness. She states that since her first fall two months ago she has experienced bilateral knee pain which has impaired her ability to ambulate. She has not sought medical attention. She does not use any assistive devices. Today while walking outside her home, She felt her "legs weak", slipped and fell, hitting the back of her head. She was unable to get up from the ground and a neighbor noticed her down and activated EMS. Pt reports intemittent symptoms of dyspnea, chest pain and dizziness but does not recall her last cardiology appointment. She also does not recall her meds, therefore [facility] ([phone]) who reports her last medication up was Sep 2019. In ED EKG: Afib with RVR 130bpm, treated with 5mg IV metoprolol and 300mg XL dose. CT Head, chest, abdomen, pelvis: No brain bleed, no PE, no SBO, no diverticulitis, no appendicitis, no gross infections or large fluid collections. 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 Cardiovascular: Yes: AFIB, CHF (borderline reduced LVEF on 2019 ECHO), HTN Hepatobiliary: Yes: Hepatitis C Reproductive: Yes: Postmenopausal ...: No Musculoskeletal: Yes: Other (b/l knee pain) - Past Surgical History Additional Past Surgical History: mitral clip - Smoking History Smoking history: Never smoked Have you smoked in the past 12 months: No - Alcohol/Substance Use Hx Alcohol Use: No History of Substance Use: reports: None - Social History Usual Living Arrangement: Yes: With Spouse ( is homebound) ADL: Family Assistance (depends on son to care for her) History of Recent Travel: No Home Medications - Allergies Allergies/Adverse Reactions: Allergies Allergy/AdvReac Type Severity Reaction Status Date / Time No Known Allergies Allergy Verified 12/20/19 07:00 - Home Medications Home Medications: Ambulatory Orders Carbidopa/Levodopa 25/100 [Sinemet 25/100 -] 1 each PO DAILY 12/20/19 Fluphenazine HCl 1 tab PO DAILY 12/20/19 Metoprolol Tartrate 1 tab PO DAILY 12/20/19 Valsartan [Diovan] 1 tab PO DAILY 12/20/19 Family Medical History Family History: Unable to Obtain (poor historian) Review of Systems - Review of Systems Constitutional: reports: No Symptoms Eyes: reports: No Symptoms HENT: reports: No Symptoms Neck: reports: No Symptoms Cardiovascular: reports: Chest Pain, Shortness of Breath Respiratory: reports: SOB Gastrointestinal: reports: No Symptoms Genitourinary: reports: No Symptoms Breasts: reports: No Symptoms Reported Musculoskeletal: reports: Joint Pain (knees) Integumentary: reports: No Symptoms Neurological: reports: Unsteady Gait, Weakness Endocrine: reports: No Symptoms Hematology/Lymphatic: reports: No Symptoms Psychiatric: reports: No Symptoms Physical Examination Vital Signs: Vital Signs Temperature 97.8 F 12/20/19 20:20 Pulse Rate 86 12/20/19 20:20 Respiratory Rate 20 12/20/19 20:20 Blood Pressure 126/76 12/20/19 20:20 O2 Sat by Pulse Oximetry (%) 93 L 12/20/19 20:30 Constitutional: Yes: No Distress, Calm, Obese, Other (slow pressured speech) Eyes: Yes: Conjunctiva Clear, PERRL HENT: Yes: Atraumatic, Normocephalic, Other (brown discoloration to teeth) Neck: Yes: Supple Cardiovascular: Yes: Pulse Irregular Respiratory: Yes: Regular, CTA Bilaterally Gastrointestinal: Yes: Normal Bowel Sounds, Soft, Abdomen, Obese ...Rectal Exam: Yes: Deferred Musculoskeletal: Yes: Joint Stiffness, Joint Swelling (knees) Extremities: Yes: WNL Edema: No Peripheral Pulses WNL: Yes Peripheral Pulses: Left Radial: 2+, Right Radial: 2+ Integumentary: Yes: Other (multiple skin tags to chest wall) Neurological: Yes: Alert, Unsteady Gait, Other (forgetful. Decreased motor strength) Labs: CBC, BMP 12/20/19 07:36 12/20/19 07:26 Imaging - Results Chest X-ray: Report Reviewed (CXR 12/20/19 A single view of the chest is been submitted. Since the prior study of 02/19/2019 there is a slightly more prominent mediastinum and central markings. There is no sign of infiltrate or failure. The angles are sharp. The soft tissues are intact. There are degenerative changes. There is a mediastinal clip. Impression Little change since prior study. Correlation recommended. Reported By: Evans Mistry MD 12/20/19 8526) Cat Scan: Report Reviewed (Head CT stroke protocol 12/20/2019 Impression: No acute bleed or fracture.No CT evidence of acute infarct. Referring health care provider notified of results by [facility] radiology at time of examination. Reported By: Manuel Gonzalez MD 12/20/19 1018) Other: Report Reviewed (CT abd and pelvis 12/20/19 IMPRESSION: No evidence of acute pulmonary emboli No evidence of acute appendicitis No evidence of acute diverticulitis Large hiatal hernia T11 compression fracture deformity Significant amount of retained stool in rectum. Reported By : Manuel Gonzalez MD 12/20/19 1316) Problem List - Problems (1) Atrial fibrillation Assessment/Plan: ? unknown if pt continues to take coumadin- pt requests we speak with son to confirm current meds as per pharmacy pt takes Toprol XL 100mg - continue lovenox 40mg daily - bleeding precautions monitor on tele routine echo cards consult as pt is high fall risk while on AC Code(s): I48.91 - UNSPECIFIED ATRIAL FIBRILLATION (2) Diabetes Assessment/Plan: insulin SS diabetic diet Code(s): E11.9 - TYPE 2 DIABETES MELLITUS WITHOUT COMPLICATIONS (3) Memory deficit Assessment/Plan: reorient frequently Code(s): R41.3 - OTHER AMNESIA (4) HTN (hypertension) Assessment/Plan: divan 40mg daily Code(s): I10 - ESSENTIAL (PRIMARY) HYPERTENSION Qualifiers: Hypertension type: unspecified Qualified Code(s): I10 - Essential (primary ) hypertension (5) Hyperlipidemia Assessment/Plan: lipids elevated on admission labs -start lipitor 20mg qhs Code(s): E78.5 - HYPERLIPIDEMIA, UNSPECIFIED Qualifiers: Hyperlipidemia type: pure hypercholesterolemia Qualified Code(s): E78.00 - Pure hypercholesterolemia, unspecified; E78.0 - Pure hypercholesterolemia (6) Parkinson disease Assessment/Plan: as per pharmacy pt is taking Sinemet - as per last neuro note, this meds should have been discontinued will discuss medication regimen with son assist with ADLs Fall precautions Code(s): G20 - PARKINSON'S DISEASE (7) Chronic pain of both knees Assessment/Plan: ortho consult for c/o b/l knee pain and unsteady gait resulting in mutiple falls f/u b/l knee x-ray PRN APAP Code(s): M25.561 - PAIN IN RIGHT KNEE; M25.562 - PAIN IN LEFT KNEE; G89.29 - OTHER CHRONIC PAIN (8) Status post fall Assessment/Plan: Head CT negative for bleed or CVA will order carotid doppler Code(s): Z91.81 - HISTORY OF FALLING Assessment/Plan Code status: Full Constipation - bowel regimen with senna and colace Visit type - Emergency Visit Emergency Visit: Yes ED Registration Date: 12/20/19 Care time: The patient presented to the Emergency Department on the above date and was hospitalized for further evaluation of their emergent condition. - New Patient This patient is new to me today: Yes Date on this admission: 12/21/19 - Critical Care Critical Care patient: No
[2019-12-21] MEDS: INSULIN SLIDING SCALE (NOVOLOG) 1 VIAL SQ SCH ×4 (06:38→21:38)
[2019-12-21 07:29] LABS: BASO % 0.7 % (0-2.0); EOS % 1.1 % (0-4.5); HEMATOCRIT 36.2 % (32.4-45.2); LYMPH % 25.6 % (8-40); MCH 27.5 pg (25.7-33.7); MCHC 33.2 g/dl (32.0-36.0); MEAN CELL VOLUME 82.7 fl (80-96); MEAN PLT VOLUME 9.4 fl (7.5-11.1); MONO % 7.1 % (3.8-10.2); NEUT % 65.5 % (42.8-82.8); PLATELET COUNT 310 K/MM3 (134-434); RBC 4.38 M/mm3 (3.60-5.2); RDW 14.5 % (11.6-15.6); WHITE BLOOD COUNT 7.8 K/mm3 (4.0-10.0)
[2019-12-21 07:57] LABS: INR 1.23 (0.83-1.09); PROTHROMBIN TIME (PATIENT) 14.6 SEC (9.7-13.0)
[2019-12-21 07:59] LABS: ACTIVATED PTT 35.2 SECONDS (25.2-36.5); MAGNESIUM 1.8 mg/dL (1.8-2.4); N-TERMINAL BNP 1788.6 pg/ml (5-125)
--- NOTE | 2019-12-21 09:53 | PN ---
Progress Note (short form) - Note Progress Note: ORTHOPEDIC SURGERY PROGRESS NOTE Department of Orthopedic Surgery SUBJECTIVE No acute events overnight. No complaints currently. Denies chest pain, shortness of breath, or calf pain. No nausea or vomiting. Pain control improving. PHYSICAL EXAMINATION Right Lower Extremity: Skin warm, dry, and intact; no lesions, rashes or ulcers noted. Muscle mass equal and symmetric to contralateral side. No atrophy noted. Mild effusion present; No masses noted. Tender to palpation the medial and lateral joint space. nontender throughout rest of extremity. No cords or calf tenderness; Able to SLR, negative log roll. No significant calf/ankle edema. Passive and active ROM of the knee 0 - 120, free from pain. Joints stable with no pathologic laxity. EHL/TA/GS motor intact ; SILT distally; 2+ DP pulses; Cap refill brisk. Tone and reflexes normal. Left Lower Extremity: Skin warm, dry, and intact; no lesions, rashes or ulcers noted. Muscle mass equal and symmetric to contralateral side. No atrophy noted. Mild effusion present; No masses noted. Tender to palpation the medial and lateral joint space. nontender throughout rest of extremity. No cords or calf tenderness; Able to SLR, negative log roll. No significant calf/ankle edema. Passive and active ROM of the knee 0 - 120, free from pain. Joints stable with no pathologic laxity. EHL/TA/GS motor intact ; SILT distally; 2+ DP pulses; Cap refill brisk. Tone and reflexes normal. DVT Exam: No evidence of DVT seen on physical exam; No cords or calf tenderness ; No significant calf/ankle edema. Intake & Output 12/19/19 12/20/19 12/21/19 23:59 23:59 23:59 Intake Total 10 240 Output Total 300 Balance -290 240 Intake: IV 10 0 Saline Lock 10 0 Oral 240 Output: Urine 300 Straight Cath 300 Other: Voiding Method Bedpan Bedpan # Unmeasured Voids Straight Cath 1 Bowel Movement Yes Weight 160 lb 164 lb 6.4 oz Height 5 ft 2 in Body Mass Index (BMI) 29.2 Weight Measurement Method Stated by Patient Standing Scale Weight Measurement Method Estimated by Staff Active Medications Generic Name Dose Route Start Last Admin Trade Name Freq PRN Reason Stop Dose Admin Acetaminophen 650 mg 12/20/19 17:34 Tylenol - PO Q6H PRN PAIN LEVEL 4 - 6 Atorvastatin Calcium 20 mg 12/20/19 22:00 12/20/19 22:13 Lipitor - PO 20 mg HS JESSICA Administration Docusate Sodium 100 mg 12/20/19 22:00 12/20/19 22:13 Colace - PO 100 mg BID JESSICA Administration Enoxaparin Sodium 40 mg 12/21/19 10:00 Lovenox - SQ DAILY [facility] Insulin Aspart 1 vial 12/20/19 22:00 12/21/19 06:38 Novolog Vial Sliding Scale - SQ 2 units ACHS JESSICA Administration Protocol Metoprolol Succinate 100 mg 12/21/19 15:00 Toprol Xl - PO DAILY JESS[facility] Senna 2 tab 12/20/19 22:00 12/20/19 22:13 Senna - PO 2 tab HS JESSICA Administration Valsartan 40 mg 12/21/19 10:00 Diovan - PO DAILY [facility] Vital Signs (last) Temp Pulse Resp BP Pulse Ox 97 F L 95 H 18 136/82 94 L 12/21/19 08:33 12/21/19 08:33 12/21/19 08:33 12/21/19 08:33 12/21/19 08:01 Laboratory (coagulation) PT with INR 14.60 SEC (9.7-13.0) H 12/21/19 06:25 Laboratory 12/21/19 06:25 12/20/19 07:26 IMAGING 2-view radiographs of bilateral knees taken at [facility] were reviewed by me personally. They demonstrate mild to moderate arthritic changes characterized by joint space narrowing, bony sclerosis of bilateral knees. There are no fractures, dislocations, or bony lesions. ASSESSMENT AND PLAN Ms. Lamb is a 69 year old female presenting status post syncopal fall with bilateral knee pain secondary to bilateral knee contusions and osteoarthritis. We have reviewed the imaging and clinical findings in detail, as well as their potential implications. After appropriate informed discussion, we agreed on the following plan: 1. Pain control 2. DVT ppx 3. WBAT b/l LE 4. Continue medical management 5. Physical therapy 6. No further orthopedic intervention at this time. All questions were answered. Thank you for involving our team in the care of this patient.
[2019-12-21] MEDS: ENOXAPARIN NA (PORCINE) 40 MG/0.4 ML DISP.SYRIN SQ SCH (10:48)
[2019-12-21] MEDS: DOCUSATE SODIUM 100 MG CAPSULE (FP) PO SCH ×2 (10:48→21:37)
[2019-12-21] MEDS: VALSARTAN 40 MG TABLET (FP) PO SCH (10:48)
[2019-12-21] MEDS: ATORVASTATIN CA 20 MG TABLET (FP) PO SCH (21:38)
[2019-12-21] MEDS: SENNOSIDES 8.6MG TABLET (FP) PO SCH (21:38)
--- NOTE | 2019-12-21 22:10 | PN ---
Physical Exam: Subjective: Patient seen at beside, denies complaints, denies CP/SOB, comfortable. VSS. Objective: Constitutional: Yes: No Distress, Calm, Obese, Other (slow speech) Eyes: Yes: Conjunctiva Clear, PERRL HENT: Yes: Atraumatic, Normocephalic Neck: Yes: Supple Cardiovascular: Yes: Pulse Irregularly irregular Respiratory: Yes: Regular, CTA Bilaterally Gastrointestinal: Yes: Normal Bowel Sounds, Soft, Abdomen, Obese ...Rectal Exam: Yes: Deferred Musculoskeletal: Yes: Joint Stiffness, Joint Swelling (knees) Extremities: Yes: WNL Edema: No Peripheral Pulses WNL: Yes Peripheral Pulses: Left Radial: 2+, Right Radial: 2+ Integumentary: Yes: Other (multiple skin tags to chest wall) Neurological: Yes: Alert, Unsteady Gait, Other (forgetful. Decreased motor strength) Vital Signs - 24 hr 12/21/19 12/21/19 12/21/19 01:00 06:16 08:01 Temperature 97.7 F 97.8 F Pulse Rate 88 107 H Respiratory 20 20 Rate Blood Pressure 115/58 L 106/68 O2 Sat by Pulse 94 L Oximetry (%) 12/21/19 12/21/19 12/21/19 08:33 13:35 20:00 Temperature 97 F L 98 F 98.4 F Pulse Rate 95 H 108 H 94 H Respiratory 18 18 18 Rate Blood Pressure 136/82 124/64 128/77 O2 Sat by Pulse Oximetry (%) 12/21/19 20:11 Temperature 98.2 F Pulse Rate 96 H Respiratory 18 Rate Blood Pressure 120/77 O2 Sat by Pulse 95 Oximetry (%) Microbiology 12/20/19 07:26 Urine - Urine - Catheterized Urine Culture - Final NO GROWTH OBTAINED 12/20/19 07:26 Blood - Peripheral Venous Blood Culture - Preliminary NO GROWTH OBTAINED AFTER 24 HOURS, INCUBATION TO CONTINUE FOR 4 DAYS. 12/20/19 07:26 Blood - Peripheral Venous Blood Culture - Preliminary NO GROWTH OBTAINED AFTER 24 HOURS, INCUBATION TO CONTINUE FOR 4 DAYS. Laboratory Results - last 24 hr 12/21/19 12/21/19 12/21/19 06:25 06:25 06:25 WBC 7.8 RBC 4.38 Hgb 12.0 Hct 36.2 MCV 82.7 MCH 27.5 MCHC 33.2 RDW 14.5 Plt Count 310 MPV 9.4 Absolute Neuts (auto) 5.1 Neutrophils % 65.5 Lymphocytes % 25.6 D Monocytes % 7.1 Eosinophils % 1.1 D Basophils % 0.7 Nucleated RBC % 0 PT with INR 14.60 H INR 1.23 H PTT (Actin FS) 35.2 POC Glucometer Hemoglobin A1c % Phosphorus 4.0 Magnesium 1.8 Creatine Kinase 54 Troponin I < 0.02 B-Natriuretic Peptide 1788.6 H 12/21/19 12/21/19 12/21/19 06:25 06:36 11:31 WBC RBC Hgb Hct MCV MCH MCHC RDW Plt Count MPV Absolute Neuts (auto) Neutrophils % Lymphocytes % Monocytes % Eosinophils % Basophils % Nucleated RBC % PT with INR INR PTT (Actin FS) POC Glucometer 178 221 Hemoglobin A1c % 10.0 H Phosphorus Magnesium Creatine Kinase Troponin I B-Natriuretic Peptide 12/21/19 12/21/19 17:30 21:30 WBC RBC Hgb Hct MCV MCH MCHC RDW Plt Count MPV Absolute Neuts (auto) Neutrophils % Lymphocytes % Monocytes % Eosinophils % Basophils % Nucleated RBC % PT with INR INR PTT (Actin FS) POC Glucometer 196 228 Hemoglobin A1c % Phosphorus Magnesium Creatine Kinase Troponin I B-Natriuretic Peptide Home Medications Medication Instructions Recorded Carbidopa/Levodopa 25/ [Sinemet 1 each PO DAILY 12/20/19 25 -] Fluphenazine HCl 1 tab PO DAILY 12/20/19 Metoprolol Tartrate 1 tab PO DAILY 12/20/19 Valsartan [Diovan] 1 tab PO DAILY 12/20/19 Current Medications Generic Name Dose Route Start Last Admin Trade Name Theoq PRN Reason Stop Dose Admin Acetaminophen 650 mg 12/20/19 17:34 Tylenol - PO Q6H PRN PAIN LEVEL 4 - 6 Atorvastatin Calcium 20 mg 12/20/19 22:00 12/21/19 21:38 Lipitor - PO 20 mg HS JESSICA Administration Docusate Sodium 100 mg 12/20/19 22:00 12/21/19 21:37 Colace - PO 100 mg BID JESSICA Administration Enoxaparin Sodium 40 mg 12/21/19 10:00 12/21/19 10:48 Lovenox - SQ 40 mg DAILY JESSICA Administration Insulin Aspart 1 vial 12/20/19 22:00 12/21/19 21:38 Novolog Vial Sliding Scale - SQ 3 units ACHS JESSICA Administration Protocol Metoprolol Succinate 100 mg 12/21/19 15:00 12/21/19 14:06 Toprol Xl - PO Not Given DAILY JESSICA Senna 2 tab 12/20/19 22:00 12/21/19 21:38 Senna - PO 2 tab HS JESSICA Administration Valsartan 40 mg 12/21/19 10:00 12/21/19 10:48 Diovan - PO 40 mg DAILY JESSICA Administration A/P: 69 F h/o HTN, T2DM, hep C (s/p treatment), HFpEF, Parkinson's disease, STEMI with use of IABP (October/2018) , splenic infarct, MR post Sandy-Clip, Afib (on coumadin) who presents to ED on the morning of due to fall and inability to get up from the ground. Atrial fibrillation now rate controlled, cont. BB unsure if she's taking Coumadin, unsure if she had bleeding episodes, very poor historian, in view of multiple falls, declining neurological status will need to explore benefits and risks of anticoagulation Cardiology consult T2DM ISS, basal insulin PRN Send A1c Dementia 2/2 advanced Parkinson's re-orientate PRN avoid psychotropic meds HTN (hypertension) Cont. Diovan 40mg daily Hyperlipidemia cont. statin Parkinson disease as per pharmacy pt is taking Sinemet - as per last neuro note, this meds should have been discontinued assist with ADLs Fall precautions Neuro consult Chronic knee pain conservative manangement, pain control, PT eval. ortho consult S/P ?fall poor historian not sure what exactly happened Head CT negative for bleed or CVA Echo, doppler carotids follow up likely 2/2 polypharmacy and muscle weakness Neurology evaluation Cont. tele monitoring DVT ppx: Lovenox SC Visit type - Emergency Visit Emergency Visit: Yes ED Registration Date: 12/20/19 Care time: The patient presented to the Emergency Department on the above date and was hospitalized for further evaluation of their emergent condition. - New Patient This patient is new to me today: Yes Date on this admission: 12/21/19 - Critical Care Critical Care patient: No - Discharge Referral Referred to [facility] Med P.C.: No
[2019-12-22] MEDS: INSULIN SLIDING SCALE (NOVOLOG) 1 VIAL SQ SCH ×4 (06:38→22:01)
--- NOTE | 2019-12-22 08:25 | PN ---
Progress Note, Physician Chief Complaint: Examined in bed with tardive dyskinetic movements of moth/head. No complaints offered. History of Present Illness: Nasima Lamb is a 68 yo F w a hx of Parkinson's, a-fib, CAD s/p CABG, cardiac arrest s/p ROSC, T2DM, HTN/HLD, S & D CHF, STEMI with use of IABP (October/2018 ) , splenic infarct, MR post Sandy-Clip presents to the [facility] ED after fall and collapse - Current Medication List Current Medications: Active Medications Acetaminophen (Tylenol -) 650 mg PO Q6H PRN PRN Reason: PAIN LEVEL 4 - 6 Atorvastatin Calcium (Lipitor -) 20 mg PO HS [facility] Last Admin: 12/21/19 21:38 Dose: 20 mg Docusate Sodium (Colace -) 100 mg PO BID [facility] Last Admin: 12/21/19 21:37 Dose: 100 mg Enoxaparin Sodium (Lovenox -) 40 mg SQ DAILY [facility] Last Admin: 12/21/19 10:48 Dose: 40 mg Insulin Aspart (Novolog Vial Sliding Scale -) 1 vial SQ [facility]; Protocol Last Admin: 12/22/19 06:38 Dose: 2 units Metoprolol Succinate (Toprol Xl -) 100 mg PO DAILY [facility] Last Admin: 12/21/19 14:06 Dose: Not Given Senna (Senna -) 2 tab PO [facility] Last Admin: 12/21/19 21:38 Dose: 2 tab Valsartan (Diovan -) 40 mg PO DAILY [facility] Last Admin: 12/21/19 10:48 Dose: 40 mg - Objective Vital Signs: Vital Signs Temperature 98.1 F 12/22/19 06:00 Pulse Rate 86 12/22/19 06:00 Respiratory Rate 20 12/22/19 06:00 Blood Pressure 128/78 12/22/19 06:00 O2 Sat by Pulse Oximetry (%) 95 12/21/19 21:00 Constitutional: Yes: Well Nourished, No Distress, Calm Eyes: Yes: WNL, Conjunctiva Clear HENT: Yes: WNL, Atraumatic, Normocephalic Neck: Yes: WNL, Supple, Trachea Midline Cardiovascular: Yes: WNL, Regular Rate and Rhythm Respiratory: Yes: WNL, Regular, CTA Bilaterally Gastrointestinal: Yes: WNL, Normal Bowel Sounds ...Rectal Exam: Yes: Deferred Genitourinary: Yes: WNL Breast(s): Yes: WNL Musculoskeletal: Yes: Muscle Weakness (generalized weakness) Edema: No Peripheral Pulses WNL: Yes Peripheral Pulses: Left Radial: 2+, Right Radial: 2+, Left Doralis Pedis: 2+, Right Dorsalis Pedis: 2+, Left Femoral: 2+, Right Femoral: 2+ Integumentary: Yes: Other (skin tags noted to chest) Neurological: Yes: Unsteady Gait, Other (tardive dyskenetic movements to head/ mouth) ...Motor Strength: LLE, RLE (generalized weakness) Psychiatric: Yes: WNL, Alert, Oriented Labs: CBC, BMP 12/21/19 06:25 12/20/19 07:26 INR, PTT INR 1.23 (0.83-1.09) H 12/21/19 06:25 - ....Imaging Other: Report Reviewed (TTE:EF 55-60%. Moderately dilated RV with decreased sustolic fx. Mild MR. Mild/mod TR) Problem List - Problems (1) Dementia Assessment/Plan: supportive care encourage family visitation Code(s): F03.90 - UNSPECIFIED DEMENTIA WITHOUT BEHAVIORAL DISTURBANCE (2) Prophylactic measure Assessment/Plan: FEN Fluids: adequate PO intake Electrolytes: monitor & replete as needed Nutrition: diabetic diet DVT moderate risk INR subtherapeutic-lovenox bridge Dispo Maintain on tele full code discharge planning Code(s): Z29.9 - ENCOUNTER FOR PROPHYLACTIC MEASURES, UNSPECIFIED (3) Atrial fibrillation Assessment/Plan: c/w tele monitoring c/w toprol Code(s): I48.91 - UNSPECIFIED ATRIAL FIBRILLATION (4) Chronic pain of both knees Assessment/Plan: tylenol prn pain WBAT no acute pathology on knee xrays c/w PT seen by orthopedics, no ortho intervention Code(s): M25.561 - PAIN IN RIGHT KNEE; M25.562 - PAIN IN LEFT KNEE; G89.29 - OTHER CHRONIC PAIN (5) Parkinson disease Assessment/Plan: on sinemwet increased by neurology supportive care Code(s): G20 - PARKINSON'S DISEASE (6) Syncope and collapse Assessment/Plan: sycope w/u in progress carotid dopplers without significant stenosis HCT without acute pathology neurology following cardiology following TTE noted Code(s): R55 - SYNCOPE AND COLLAPSE (7) Diabetes Assessment/Plan: BGM AC/Hs with sliding scale diabetic diet Hgb A1C 10.4 Code(s): E11.9 - TYPE 2 DIABETES MELLITUS WITHOUT COMPLICATIONS (8) Tardive dyskinesia Assessment/Plan: seen by neurology-Dr Lr Trial of Cogentin 0.5 mg twice daily. Increase the carbidopa to 3 times daily. c/w Physical therapy. fall precautions Code(s): G24.01 - DRUG INDUCED SUBACUTE DYSKINESIA (9) Hyperlipidemia Assessment/Plan: c/w statin Code(s): E78.5 - HYPERLIPIDEMIA, UNSPECIFIED Qualifiers: Hyperlipidemia type: pure hypercholesterolemia Qualified Code(s): E78.00 - Pure hypercholesterolemia, unspecified; E78.0 - Pure hypercholesterolemia Visit type - Emergency Visit Emergency Visit: Yes ED Registration Date: 12/20/19 Care time: The patient presented to the Emergency Department on the above date and was hospitalized for further evaluation of their emergent condition. - New Patient This patient is new to me today: Yes Date on this admission: 12/22/19 - Critical Care Critical Care patient: No - Discharge Referral Referred to [facility] Med P.C.: No
--- NOTE | 2019-12-22 09:10 | CON.NEURO ---
Consult Consult Specialty:: Adeline Referred by:: PCP Reason for Consultation:: Fall - History of Present Illness History of Present Illness: this is a 69year-old right-handed female patient with multiple medical problem including history of cardiac arrhythmia on Coumadin history of hypertension history of splenic infarct history of osteoarthritis and questionable parkinson' s disease presented to the hospital from home with the chief complaint is status post fall and weakness. I so the patient on telemetry CAT scan of the head was done patient was evaluated by orthopedic surgeon. Since admission to the floor there is no seizure-like activity no chest pain or palpitation patient 8 breakfast this morning. There is no family member available. Patient was noted to be on atypical antipsychotic. Patient denies any hallucination. - History Source History Provided By: Patient, Medical Record Limitations to Obtaining History: Clinical Condition - Past Medical History CERTIFIED MEDICAL ASSISTANT: Yes: Dementia Cardio/Vascular: Yes: AFIB, CHF (borderline reduced LVEF on 2019 ECHO), HTN Hepatobiliary: Yes: Hepatitis C ...: No Musculoskeletal: Yes: Other (b/l knee pain) - Past Surgical History Past Surgical History: Yes: CABG - Alcohol/Substance Use Hx Alcohol Use: No History of Substance Use: reports: None - Smoking History Smoking history: Never smoked Have you smoked in the past 12 months: No - Social History ADL: Family Assistance (depends on son to care for her) History of Recent Travel: No Home Medications - Allergies Allergies/Adverse Reactions: Allergies Allergy/AdvReac Type Severity Reaction Status Date / Time No Known Allergies Allergy Verified 12/20/19 07:00 - Home Medications Home Medications: Ambulatory Orders Carbidopa/Levodopa 25/100 [Sinemet 25/100 -] 1 each PO DAILY 12/20/19 Fluphenazine HCl 1 tab PO DAILY 12/20/19 Metoprolol Tartrate 1 tab PO DAILY 12/20/19 Valsartan [Diovan] 1 tab PO DAILY 12/20/19 Family Medical History Family History: Unremarkable Review of Systems - Review of Systems Constitutional: reports: No Symptoms Eyes: reports: No Symptoms Neurological: reports: Headache, Incoordination, Numbness, Parasthesia, Unsteady Gait, Weakness Physical Exam-Neuro Vital Signs: Vital Signs Temperature 98.1 F 12/22/19 06:00 Pulse Rate 86 12/22/19 06:00 Respiratory Rate 20 03/02/20 06:00 Blood Pressure 128/78 03/02/20 06:00 O2 Sat by Pulse Oximetry (%) 95 12/21/19 21:00 Constitutional: Yes: Well Nourished Neck: Yes: WNL Cardiovascular: Yes: WNL Labs: CBC, BMP 12/21/19 06:25 12/20/19 07:26 INR, PTT INR 1.23 (0.83-1.09) H 12/21/19 06:25 - Neuro Exam Level Of Consciousness: Yes: Oriented to Person, Oriented to Place, Oriented to Time Eyes: Yes: PERRLA Speech: WNL Dominant Hand: Right Cranial Nerves II-XII Intact: Yes Gag: Present DTR's: 1+ Left Bicep, 1+ Right Bicep, 1+ Left Tricep, 1+ Right Tricep, 1+ Left Brachioradialis Response to light touch: Abnormal Response to pain prick: Abnormal Response to temperature: Abnormal Movement Disorders: Tremors, Other (ositive mild resting tremors in the left handwith no cogwheeling) Motor Strength: 3/5: Left Arm, Right Arm, Left Leg, Right Leg Gait: Deferred Imaging - Results Cat Scan: Image Reviewed Problem List - Problems (1) Parkinsonism Code(s): G20 - PARKINSON'S DISEASE (2) Tardive dyskinesia Code(s): G24.01 - DRUG INDUCED SUBACUTE DYSKINESIA Assessment/Plan 69-year-old woman with multiple medical problem and psych history presented with status post fall patient is exhibiting symptoms of combination of parkinsonism and tardive dyskinesia its very difficult to a certain diagnosis of idiopathic Parkinson's when it's complicated by psychotropic usage. Neurological differential diagnoses #1 parkinsonism due to atypical psychotropic. #2 tardive dyskinesia plan 1. Fall precautions. 2. Tight INR control. 3. Trial of Cogentin 0.5 mg twice daily. 4. Increase the carbidopa to 3 times daily. 5. Physical therapy. 6. CAT scan of the lumbosacral spine with no contrast. 7. Blood work. thank you very much for allowing me to be part of this patient neurological care. Lila Lr M.D., MSc [facility] [address] [place] [address] Office
[2019-12-22] MEDS: ENOXAPARIN NA (PORCINE) 40 MG/0.4 ML DISP.SYRIN SQ SCH (09:23)
[2019-12-22] MEDS: DOCUSATE SODIUM 100 MG CAPSULE (FP) PO SCH ×2 (09:23→22:01)
[2019-12-22] MEDS: VALSARTAN 40 MG TABLET (FP) PO SCH (09:23)
[2019-12-22] MEDS ORDERED: PNEUMOC 13-VAL CONJ-DIP CRM/PF 0.5 ML DISP.SYRIN IM ONE (10:00)
[2019-12-22] MEDS ORDERED: FLU VACCINE QUAD 60 MCG/0.5 ML (MDV 19-20) IM ONE (10:00)
--- NOTE | 2019-12-22 10:18 | PN ---
Progress Note (short form) - Note Progress Note: pt s/p [place] 2018, seen multiple times in hospital since by jose saldivar. d/w'd him today--his group will see pt here
--- NOTE | 2019-12-22 10:25 | CON.CARD ---
Consult Consult Specialty:: Cardiology - History of Present Illness History of Present Illness: Nasima Lamb is a 68 yo F w a hx of Parkinson's, a-fib, CAD s/p CABG, cardiac arrest s/p ROSC, T2DM, HTN/HLD, S & D CHF, STEMI with use of IABP (October/2018 ) , splenic infarct, MR post Sandy-Clip presents to the [facility] er after she fell down and collapsed on the street this morning at 6 am. She states she was walking home and all of a sudden felt weak, collapsed, fell down and hit her head. She does not remember well what happened or how it happened. Here in the ER she denies having a headache or any chest pain. She denies being short of breath. She states she is not currently in any pain. 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 ATTENDANT: Yes: Dementia Cardio/Vascular: Yes: AFIB, CHF (borderline reduced LVEF on 2019 ECHO), HTN Hepatobiliary: Yes: Hepatitis C ...: No Musculoskeletal: Yes: Other (b/l knee pain) - Past Surgical History Past Surgical History: Yes: CABG - Alcohol/Substance Use Hx Alcohol Use: No History of Substance Use: reports: None - Smoking History Smoking history: Never smoked Have you smoked in the past 12 months: No - Social History ADL: Family Assistance (depends on son to care for her) History of Recent Travel: No Home Medications - Allergies Allergies/Adverse Reactions: Allergies Allergy/AdvReac Type Severity Reaction Status Date / Time No Known Allergies Allergy Verified 12/20/19 07:00 - Home Medications Home Medications: Ambulatory Orders Carbidopa/Levodopa 25/100 [Sinemet 25/100 -] 1 each PO DAILY 12/20/19 Fluphenazine HCl 1 tab PO DAILY 12/20/19 Metoprolol Tartrate 1 tab PO DAILY 12/20/19 Valsartan [Diovan] 1 tab PO DAILY 12/20/19 Vital Signs: Vital Signs Temperature 98.1 F 12/22/19 06:00 Pulse Rate 86 12/22/19 06:00 Respiratory Rate 20 12/22/19 06:00 Blood Pressure 128/78 12/22/19 06:00 O2 Sat by Pulse Oximetry (%) 95 12/21/19 21:00 Constitutional: Yes: Well Nourished, No Distress, Calm Eyes: Yes: WNL, Conjunctiva Clear, EOM Intact HENT: Yes: WNL, Atraumatic, Normocephalic Neck: Yes: WNL, Supple, Trachea Midline Respiratory: Yes: WNL, Regular, CTA Bilaterally Gastrointestinal: Yes: WNL, Normal Bowel Sounds Renal/: Yes: WNL Cardiovascular: Yes: Pulse Irregular Musculoskeletal: Yes: WNL Extremities: Yes: WNL Integumentary: Yes: WNL Neurological: Yes: WNL, Alert, Oriented ...Motor Strength: WNL Psychiatric: Yes: WNL, Alert, Oriented - Other Data Labs, Other Data: CBC, BMP 12/21/19 06:25 12/20/19 07:26 INR, PTT INR 1.23 (0.83-1.09) H 12/21/19 06:25 Imaging - Results Chest X-ray: Image Reviewed (no i/e) EKG: Image Reviewed (af RVR rep abn) Problem List - Problems (1) Atrial fibrillation Code(s): I48.91 - UNSPECIFIED ATRIAL FIBRILLATION (2) Chronic pain of both knees Code(s): M25.561 - PAIN IN RIGHT KNEE; M25.562 - PAIN IN LEFT KNEE; G89.29 - OTHER CHRONIC PAIN (3) Dementia Code(s): F03.90 - UNSPECIFIED DEMENTIA WITHOUT BEHAVIORAL DISTURBANCE (4) Parkinson disease Code(s): G20 - PARKINSON'S DISEASE (5) Parkinsonism Code(s): G20 - PARKINSON'S DISEASE (6) Prophylactic measure Code(s): Z29.9 - ENCOUNTER FOR PROPHYLACTIC MEASURES, UNSPECIFIED (7) Status post fall Code(s): Z91.81 - HISTORY OF FALLING (8) Syncope and collapse Code(s): R55 - SYNCOPE AND COLLAPSE (9) Tardive dyskinesia Code(s): G24.01 - DRUG INDUCED SUBACUTE DYSKINESIA (10) Acute on chronic systolic and diastolic heart failure, NYHA class 1 Code(s): I50.43 - ACUTE ON CHRONIC COMBINED SYSTOLIC AND DIASTOLIC HRT FAIL (11) Depression Code(s): F32.9 - MAJOR DEPRESSIVE DISORDER, SINGLE EPISODE, UNSPECIFIED (12) Diabetes Code(s): E11.9 - TYPE 2 DIABETES MELLITUS WITHOUT COMPLICATIONS (13) Heart failure, chronic, with acute decompensation Code(s): I50.9 - HEART FAILURE, UNSPECIFIED Qualifiers: Heart failure type: diastolic Qualified Code(s): I50.33 - Acute on chronic diastolic (congestive) heart failure (14) Hepatic congestion Code(s): K76.1 - CHRONIC PASSIVE CONGESTION OF LIVER (15) Memory deficit Code(s): R41.3 - OTHER AMNESIA (16) Parkinson disease Code(s): G20 - PARKINSON'S DISEASE (17) Splenic infarct Code(s): D73.5 - INFARCTION OF SPLEEN (18) Supratherapeutic INR Code(s): R79.1 - ABNORMAL COAGULATION PROFILE (19) Anemia Code(s): D64.9 - ANEMIA, UNSPECIFIED (20) Atrial fibrillation with rapid ventricular response Code(s): I48.91 - UNSPECIFIED ATRIAL FIBRILLATION (21) FH: mitral valve repair Code(s): Z82.49 - FAMILY HX OF ISCHEM HEART DIS AND OTH DIS OF THE CIRC SYS (22) HTN (hypertension) Code(s): I10 - ESSENTIAL (PRIMARY) HYPERTENSION Qualifiers: Hypertension type: unspecified Qualified Code(s): I10 - Essential (primary ) hypertension (23) Hyperlipidemia Code(s): E78.5 - HYPERLIPIDEMIA, UNSPECIFIED Qualifiers: Hyperlipidemia type: pure hypercholesterolemia Qualified Code(s): E78.00 - Pure hypercholesterolemia, unspecified; E78.0 - Pure hypercholesterolemia (24) Hypothyroid Code(s): E03.9 - HYPOTHYROIDISM, UNSPECIFIED (25) Need for assistance due to unsteady gait Code(s): R26.89 - OTHER ABNORMALITIES OF GAIT AND MOBILITY (26) Parkinsonian tremor Code(s): G20 - PARKINSON'S DISEASE (27) S/P mitral valve repair Code(s): Z98.890 - OTHER SPECIFIED POSTPROCEDURAL STATES (28) Subcortical dementia Code(s): F03.90 - UNSPECIFIED DEMENTIA WITHOUT BEHAVIORAL DISTURBANCE (29) Systolic CHF Code(s): I50.20 - UNSPECIFIED SYSTOLIC (CONGESTIVE) HEART FAILURE (30) T2DM (type 2 diabetes mellitus) Code(s): E11.9 - TYPE 2 DIABETES MELLITUS WITHOUT COMPLICATIONS Qualifiers: Diabetes mellitus snf insulin use: unspecified oysterman insulin use status Diabetes mellitus complication status: with unspecified complications (31) Chest pain Code(s): R07.9 - CHEST PAIN, UNSPECIFIED (32) Hypomagnesemia Code(s): E83.42 - HYPOMAGNESEMIA Assessment/Plan 68 yo F w a hx of Parkinson's, a-fib, CAD s/p CABG, cardiac arrest s/p ROSC, T2DM, HTN/HLD, S & D CHF, STEMI with use of IABP (October/2018) , splenic infarct, MR post Sandy-Clip presents to the [facility] er after she fell down and collapsed on the street . Plan ECHO Obtaine records from [facility] re prior w/u Cont rate control restart AC with Coumadin Bridge with Lovenox until INR therapeutic keep LDL below 70 Lasix for decompensated CHF Will f/u
[2019-12-22] MEDS ORDERED: INSULIN (NOVOLOG) ASPART 100 UNITS/ML 10ML VIAL ONE (11:16)
[2019-12-22] MEDS ORDERED: PT OWN MED DRAWER 7, Y5N ONE ×4 (11:16→21:47)
[2019-12-22] MEDS: BENZTROPINE MESYLATE 0.5 MG TABLET (FP) PO SCH ×2 (11:24→22:01)
--- NOTE | 2019-12-22 14:08 | ECHO ---
Name: NICK WALTER Exam:Adult Echocardiogram Study Date: 12/22/2019 12:59 PM Age: 69 yrs Reason For Study: afib Height: 62 in Weight: 160 lb BSA: 1.7 m2 MMode/2D Measurements & Calculations IVSd: 1.1 cm Ao root diam: 2.4 cm LVIDd: 2.6 cm LA dimension: 3.9 cm LVIDs: 2.1 cm ACS: 1.7 cm LVPWd: 1.2 cm EDV(Teich): 25.4 ml LVOT diam: 1.8 cm ESV(Teich): 14.2 ml RV S Ant: 11.5 cm/sec Doppler Measurements & Calculations Ao V2 max: 88.7 cm/sec AI max ant: 204.6 cm/sec Ao max P.1 mmHg AI max P.7 mmHg Ao V2 mean: 61.4 cm/sec Ao mean P.7 mmHg AI dec slope: 113.9 cm/sec2 Ao V2 VTI: 18.6 cm AI P1/2t: 526.3 msec MR max ant: 435.4 cm/sec TR max ant: 273.8 cm/sec MR max P.4 mmHg TR max P.8 mmHg PA V2 max: 67.1 cm/sec Med Peak E' Ant: 12.1 cm/sec PA max P.8 mmHg Lat Peak E' Ant: 9.2 cm/sec Procedure Images were not obtained from all of the standard acoustic windows due to the limited scope of the [place]. Study Quality: Technically suboptimal. Left Ventricle The left ventricle is grossly normal size. The left ventricular ejection fraction is normal. Ejection Fraction = 50-55%. Right Ventricle The right ventricle is moderately dilated. The right ventricular systolic function is moderately redu kyle. Atria The left atrium is severely dilated. The right atrium is severely dilated. Mitral Valve Calcified mitral apparatus. There is mild mitral regurgitation. The mitral regurgitant jet is eccentr ically directed. Tricuspid Valve The tricuspid valve is not well visualized, but is grossly normal. There is mild to moderate tricuspi d regurgitation. Right ventricular systolic pressure is elevated at 50-60mmHg. There is moderate pulmon kael hypertension. Aortic Valve There is mild aortic sclerosis.;. No hemodynamically significant valvular aortic stenosis. No aortic regurgitation is present. Pulmonic Valve The pulmonic valve is not well visualized. Great Vessels The aortic root is not well visualized. Pericardium/Pleura There is no pericardial effusion. Interpretation Summary Limited study,limited views. LV: grossly normal size and systolic function, EF 50-55% RV: Moderately dilated with moderately decreased systolic function Sverely dilated biatria Sclerotic aorttic valve Mild mitral regurgitation, eccentric jet posteriorly;calcified annulus Mild to moderate tricuspid regurgitation, moderate pulmonary hypertension. Lj Gao 12/22/2019 02:07 PM
[2019-12-22] MEDS ORDERED: BISACODYL 5 MG TABLET.DR (FP) PO ONE (14:15)
[2019-12-22] MEDS: CARBIDOPA/LEVODOPA 25/100 TABLET (FP) PO SCH ×2 (15:49→22:01)
[2019-12-22 17:45] LABS: BASO % 0.4 % (0-2.0); EOS % 0.8 % (0-4.5); HEMATOCRIT 38.3 % (32.4-45.2); HEMOGLOBIN 12.7 GM/dL (10.7-15.3); LYMPH % 20.7 % (8-40); MCH 27.6 pg (25.7-33.7); MCHC 33.1 g/dl (32.0-36.0); MEAN CELL VOLUME 83.5 fl (80-96); MEAN PLT VOLUME 9.4 fl (7.5-11.1); MONO % 6.2 % (3.8-10.2); NEUT % 71.9 % (42.8-82.8); PLATELET COUNT 340 K/MM3 (134-434); RBC 4.59 M/mm3 (3.60-5.2); RDW 14.5 % (11.6-15.6)
[2019-12-22 17:59] LABS: INR 1.25 (0.83-1.09); PROTHROMBIN TIME (PATIENT) 14.8 SEC (9.7-13.0)
[2019-12-22 18:21] LABS: ALBUMIN 2.6 g/dl (3.4-5.0); BILIRUBIN,TOTAL 0.4 mg/dL (0.2-1); BLOOD UREA NITROGEN 15.7 mg/dL (7-18); CALCIUM 8.7 mg/dL (8.5-10.1); CREATININE 0.8 mg/dL (0.55-1.3); MAGNESIUM 1.7 mg/dL (1.8-2.4); POTASSIUM 4.1 mmol/L (3.5-5.1); TOT PROT 7.2 g/dl (6.4-8.2)
[2019-12-22] MEDS ORDERED: MAGNESIUM SULF 50% (8.12 MEQ/2 ML-1 GM VIAL) IVPB ONE (19:19)
[2019-12-22] MEDS ORDERED: ONDANSETRON 4 MG/2 ML VIAL IVPUSH ONE (19:58)
[2019-12-22] MEDS: ATORVASTATIN CA 20 MG TABLET (FP) PO SCH (22:01)
[2019-12-22] MEDS: SENNOSIDES 8.6MG TABLET (FP) PO SCH (22:01)
[2019-12-23] MEDS ORDERED: PT OWN MED DRAWER 7, Y5N ONE ×4 (06:17→20:30)
[2019-12-23] MEDS: INSULIN SLIDING SCALE (NOVOLOG) 1 VIAL SQ SCH ×4 (06:20→21:04)
[2019-12-23] MEDS: CARBIDOPA/LEVODOPA 25/100 TABLET (FP) PO SCH ×3 (06:21→21:03)
[2019-12-23 08:16] LABS: BASO % 0.5 % (0-2.0); EOS % 1.3 % (0-4.5); HEMATOCRIT 36.6 % (32.4-45.2); LYMPH % 20.2 % (8-40); MCH 27.1 pg (25.7-33.7); MCHC 32.7 g/dl (32.0-36.0); MEAN PLT VOLUME 9.4 fl (7.5-11.1); MONO % 6.6 % (3.8-10.2); NEUT % 71.4 % (42.8-82.8); PLATELET COUNT 317 K/MM3 (134-434); RBC 4.41 M/mm3 (3.60-5.2); RDW 14.6 % (11.6-15.6); WHITE BLOOD COUNT 8.5 K/mm3 (4.0-10.0)
[2019-12-23 08:18] LABS: INR 1.22 (0.83-1.09); PROTHROMBIN TIME (PATIENT) 14.4 SEC (9.7-13.0)
[2019-12-23 08:35] LABS: ALBUMIN 2.4 g/dl (3.4-5.0); BILIRUBIN,TOTAL 0.5 mg/dL (0.2-1); BLOOD UREA NITROGEN 10.4 mg/dL (7-18); CREATININE 0.7 mg/dL (0.55-1.3); MAGNESIUM 1.7 mg/dL (1.8-2.4); POTASSIUM 3.7 mmol/L (3.5-5.1); TOT PROT 6.7 g/dl (6.4-8.2)
[2019-12-23] MEDS ORDERED: MAGNESIUM OXIDE 400 MG TABLET (FP) PO ONE (09:00)
--- NOTE | 2019-12-23 09:23 | PN ---
Physical Exam: SUBJECTIVE: Patient seen and examined at the bedside. OBJECTIVE: Patient with tardive dyskinetic movements of mouth/head. No complaints offered. ----- Patient is a 68 year old female with a significant past medical history of parkinson disease, a-fib, CAD s/p CABG, cardiac arrest s/p ROSC, diabetes II, hypertension, HLD, systolic/diastolic chf, STEMI with use of IABP (October/2018) , splenic infarct, MR post fina-clip presents to the [facility] ED after fall and collapse. ------ discussed with cardiology who recommends lovenox with a bridge to coumadin. Vital Signs Period Temp Pulse Resp BP Sys/Castillo Pulse Ox Last 24 Hr 97 F-98.2 F 93-116 18-20 102-142/57-88 96 GENERAL: The patient is awake, alert, and oriented, in no acute distress, tardive dyskinetic movements HEAD: Normal with no signs of trauma. EYES: PERRL, extraocular movements intact, sclera anicteric, conjunctiva clear. No ptosis. ENT: Ears normal, nares patent, oropharynx clear without exudates, moist mucous membranes. NECK: Trachea midline, full range of motion, supple. LUNGS: Breath sounds equal, clear to auscultation bilaterally HEART: Regular rate and rhythm ABDOMEN: Soft, nontender, nondistended, normoactive bowel sounds EXTREMITIES: no edema. muscle Weakness (generalized weakness) NEUROLOGICAL: garbled speech Laboratory Results - last 24 hr 12/20/19 12/22/19 12/22/19 07:58 10:05 10:05 WBC RBC Hgb Hct MCV MCH MCHC RDW Plt Count MPV Absolute Neuts (auto) Neutrophils % Lymphocytes % Monocytes % Eosinophils % Basophils % Nucleated RBC % PT with INR INR Sodium Potassium Chloride Carbon Dioxide Anion Gap BUN Creatinine Est GFR (CKD-EPI)AfAm Est GFR (CKD-EPI)NonAf POC Glucometer Random Glucose Calcium Magnesium Total Bilirubin AST ALT Alkaline Phosphatase Ammonia 42.30 H Total Protein Albumin Vitamin B12 412 RPR Titer Blood Type AB NEGATIVE Antibody Screen Negative 12/22/19 12/22/19 12/22/19 11:26 16:23 16:45 WBC 9.0 RBC 4.59 Hgb 12.7 Hct 38.3 MCV 83.5 MCH 27.6 MCHC 33.1 RDW 14.5 Plt Count 340 MPV 9.4 Absolute Neuts (auto) 6.4 Neutrophils % 71.9 Lymphocytes % 20.7 Monocytes % 6.2 Eosinophils % 0.8 Basophils % 0.4 Nucleated RBC % 0 PT with INR INR Sodium Potassium Chloride Carbon Dioxide Anion Gap BUN Creatinine Est GFR (CKD-EPI)AfAm Est GFR (CKD-EPI)NonAf POC Glucometer 278 178 Random Glucose Calcium Magnesium Total Bilirubin AST ALT Alkaline Phosphatase Ammonia Total Protein Albumin Vitamin B12 RPR Titer Blood Type Antibody Screen 12/22/19 12/22/19 12/22/19 16:45 16:45 21:54 WBC RBC Hgb Hct MCV MCH MCHC RDW Plt Count MPV Absolute Neuts (auto) Neutrophils % Lymphocytes % Monocytes % Eosinophils % Basophils % Nucleated RBC % PT with INR 14.80 H INR 1.25 H Sodium 140 Potassium 4.1 Chloride 105 Carbon Dioxide 26 Anion Gap 9 BUN 15.7 Creatinine 0.8 Est GFR (CKD-EPI)AfAm 87.18 Est GFR (CKD-EPI)NonAf 75.22 POC Glucometer 201 Random Glucose 181 H Calcium 8.7 Magnesium 1.7 L Total Bilirubin 0.4 AST 16 ALT 17 Alkaline Phosphatase 95 Ammonia Total Protein 7.2 Albumin 2.6 L Vitamin B12 RPR Titer Blood Type Antibody Screen 12/23/19 12/23/19 12/23/19 06:02 06:02 06:02 WBC 8.5 RBC 4.41 Hgb 12.0 Hct 36.6 MCV 83.0 MCH 27.1 MCHC 32.7 RDW 14.6 Plt Count 317 MPV 9.4 Absolute Neuts (auto) 6.0 Neutrophils % 71.4 Lymphocytes % 20.2 Monocytes % 6.6 Eosinophils % 1.3 Basophils % 0.5 Nucleated RBC % 0 PT with INR 14.40 H INR 1.22 H Sodium Potassium Chloride Carbon Dioxide Anion Gap BUN Creatinine Est GFR (CKD-EPI)AfAm Est GFR (CKD-EPI)NonAf POC Glucometer Random Glucose Calcium Magnesium Total Bilirubin AST ALT Alkaline Phosphatase Ammonia Total Protein Albumin Vitamin B12 RPR Titer Nonreactive Blood Type Antibody Screen 12/23/19 12/23/19 06:02 06:20 WBC RBC Hgb Hct MCV MCH MCHC RDW Plt Count MPV Absolute Neuts (auto) Neutrophils % Lymphocytes % Monocytes % Eosinophils % Basophils % Nucleated RBC % PT with INR INR Sodium 141 Potassium 3.7 Chloride 108 H Carbon Dioxide 24 Anion Gap 9 BUN 10.4 Creatinine 0.7 Est GFR (CKD-EPI)AfAm 102.46 Est GFR (CKD-EPI)NonAf 88.40 POC Glucometer 161 Random Glucose 145 H Calcium 8.0 L Magnesium 1.7 L Total Bilirubin 0.5 AST 14 L ALT 6 L Alkaline Phosphatase 88 Ammonia Total Protein 6.7 Albumin 2.4 L Vitamin B12 RPR Titer Blood Type Antibody Screen Active Medications Generic Name Dose Route Start Last Admin Trade Name Freq PRN Reason Stop Dose Admin Acetaminophen 650 mg 12/20/19 17:34 Tylenol - PO Q6H PRN PAIN LEVEL 4 - 6 Atorvastatin Calcium 20 mg 12/20/19 22:00 12/22/19 22:01 Lipitor - PO 20 mg HS JESSICA Administration Benztropine Mesylate 0.5 mg 12/22/19 10:00 12/22/19 22:01 Cogentin - PO 0.5 mg BID JESSICA Administration Carbidopa/Levodopa 1 each 12/22/19 14:00 12/23/19 06:21 Sinemet 25/100 - PO 1 each TID JESSICA Administration Docusate Sodium 100 mg 12/20/19 22:00 12/22/19 22:01 Colace - PO 100 mg BID JESSICA Administration Enoxaparin Sodium 80 mg 12/23/19 09:30 Lovenox - SQ Q12H JESSICA Insulin Aspart 1 vial 12/20/19 22:00 12/23/19 06:20 Novolog Vial Sliding Scale - SQ 2 units ACHS JESSICA Administration Protocol Metoprolol Succinate 100 mg 12/21/19 15:00 12/22/19 09:23 Toprol Xl - PO 100 mg DAILY JESSICA Administration Senna 2 tab 12/20/19 22:00 12/22/19 22:01 Senna - PO 2 tab HS JESSICA Administration Valsartan 40 mg 12/21/19 10:00 12/22/19 09:23 Diovan - PO 40 mg DAILY JESSICA Administration ASSESSMENT/PLAN: Problem List - Problems (1) Parkinson disease Assessment/Plan: sinemet increased to TID dosing Code(s): G20 - PARKINSON'S DISEASE (2) Status post implantation of mitral valve leaflet clip Code(s): Z98.890 - OTHER SPECIFIED POSTPROCEDURAL STATES; Z95.818 - PRESENCE OF OTHER CARDIAC IMPLANTS AND GRAFTS (3) Syncope and collapse Assessment/Plan: physical therapy ordered syncope workup initiated Code(s): R55 - SYNCOPE AND COLLAPSE (4) Tardive dyskinesia Assessment/Plan: seen by neurology-Dr Lr Trial of Cogentin 0.5 mg twice daily. Increase the carbidopa to 3 times daily. c/w Physical therapy. fall precautions Code(s): G24.01 - DRUG INDUCED SUBACUTE DYSKINESIA (5) Diabetes Code(s): E11.9 - TYPE 2 DIABETES MELLITUS WITHOUT COMPLICATIONS (6) Heart failure, chronic, with acute decompensation Code(s): I50.9 - HEART FAILURE, UNSPECIFIED Qualifiers: Heart failure type: diastolic Qualified Code(s): I50.33 - Acute on chronic diastolic (congestive) heart failure (7) Atrial fibrillation with rapid ventricular response Assessment/Plan: Remains rapid ventricular response with mild exertion. metoprolol increased by cardiology to 125mg daily. cannot use DOAC because of valvular AF: s/p mitral valve clip on lovenox 80 bid with a bridge to coumadin to achieve inr between 2-3 Code(s): I48.91 - UNSPECIFIED ATRIAL FIBRILLATION (8) FH: mitral valve repair Code(s): Z82.49 - FAMILY HX OF ISCHEM HEART DIS AND OTH DIS OF THE [facility] SYS (9) HTN (hypertension) Code(s): I10 - ESSENTIAL (PRIMARY) HYPERTENSION Qualifiers: Hypertension type: unspecified Qualified Code(s): I10 - Essential (primary ) hypertension (10) Prophylactic measure Assessment/Plan: fen PO fluids magnesium repleted f: PO adequate e: monitor electrolytes n: soft diet Code(s): Z29.9 - ENCOUNTER FOR PROPHYLACTIC MEASURES, UNSPECIFIED (11) DVT prophylaxis Assessment/Plan: lovenox 80mg bid with a bridge to coumadin to achieve inr goal between 2-3 Code(s): Z29.9 - ENCOUNTER FOR PROPHYLACTIC MEASURES, UNSPECIFIED Visit type - Emergency Visit Emergency Visit: Yes ED Registration Date: 12/20/19 Care time: The patient presented to the Emergency Department on the above date and was hospitalized for further evaluation of their emergent condition. - New Patient This patient is new to me today: Yes Date on this admission: 12/23/19 - Critical Care Critical Care patient: No - Discharge Referral Referred to [facility] Med P.C.: No
--- NOTE | 2019-12-23 10:01 | PN ---
Progress Note, Physician Chief Complaint: Pt Alert; says she had central chest pain lasting seconds yesterday (and says she has had this for years). History of Present Illness: 68 year old woman (b. [place]), with past medical history Parkinson's, A. fib, STEMI s/p CABG, cardiac arrest, status post Rask, type 2 diabetes, hypertension , hyperlipidemia, splenic infarct, MR s/p clip, constipation, obesity, presents to the emergency department after collapse versus syncope. Patient with poor recollection/poor historian unable to give adequate history. Denies headache, chest pain, shortness of breath at this time; history limited by Parkinson's, dementia. - Current Medication List Current Medications: Active Medications Acetaminophen (Tylenol -) 650 mg PO Q6H PRN PRN Reason: PAIN LEVEL 4 - 6 Atorvastatin Calcium (Lipitor -) 20 mg PO HS [facility] Last Admin: 12/22/19 22:01 Dose: 20 mg Benztropine Mesylate (Cogentin -) 0.5 mg PO BID [facility] Last Admin: 12/22/19 22:01 Dose: 0.5 mg Carbidopa/Levodopa (Sinemet 25/100 -) 1 each PO TID [facility] Last Admin: 12/23/19 06:21 Dose: 1 each Docusate Sodium (Colace -) 100 mg PO BID [facility] Last Admin: 12/22/19 22:01 Dose: 100 mg Enoxaparin Sodium (Lovenox -) 80 mg SQ BID [facility] Insulin Aspart (Novolog Vial Sliding Scale -) 1 vial SQ [facility]; Protocol Last Admin: 12/23/19 06:20 Dose: 2 units Metoprolol Succinate (Toprol Xl -) 100 mg PO DAILY [facility] Last Admin: 12/22/19 09:23 Dose: 100 mg Senna (Senna -) 2 tab PO [facility] Last Admin: 12/22/19 22:01 Dose: 2 tab Valsartan (Diovan -) 40 mg PO DAILY [facility] Last Admin: 12/22/19 09:23 Dose: 40 mg - Objective Vital Signs: Vital Signs Temperature 97.8 F 12/23/19 06:00 Pulse Rate 101 H 12/23/19 06:00 Respiratory Rate 20 12/23/19 06:00 Blood Pressure 102/65 12/23/19 06:00 O2 Sat by Pulse Oximetry (%) 96 12/22/19 21:00 Constitutional: Yes: Calm, Obese Eyes: Yes: WNL HENT: Yes: WNL Neck: Yes: WNL Cardiovascular: Yes: Tachycardia, Pulse Irregular, S1 (varies in intenstiy), S2 Respiratory: Yes: WNL Gastrointestinal: Yes: Soft, Abdomen, Obese ...Rectal Exam: Yes: Deferred Genitourinary: No: Anuria Integumentary: Yes: WNL Neurological: Yes: Alert, Tremors, Weakness Psychiatric: Yes: Alert Labs: CBC, BMP 12/23/19 06:02 12/23/19 06:02 INR, PTT INR 1.22 (0.83-1.09) H 12/23/19 06:02 Abnormal Lab Results 12/23/19 12/23/19 06:02 06:02 PT with INR 14.40 H INR 1.22 H Chloride 108 H Random Glucose 145 H Calcium 8.0 L Magnesium 1.7 L AST 14 L ALT 6 L Albumin 2.4 L - ....Imaging Chest X-ray: Image Reviewed EKG: Image Reviewed Problem List - Problems (1) Status post implantation of mitral valve leaflet clip Code(s): Z98.890 - OTHER SPECIFIED POSTPROCEDURAL STATES; Z95.818 - PRESENCE OF OTHER CARDIAC IMPLANTS AND GRAFTS (2) Chest pain, atypical Assessment/Plan: TNI < 0.02 x 2. EKG and telemetry: AF with RVR. Metoprolol dose increased. Code(s): R07.89 - OTHER CHEST PAIN (3) Parkinson disease Code(s): G20 - PARKINSON'S DISEASE (4) Status post fall Code(s): Z91.81 - HISTORY OF FALLING (5) Depression Code(s): F32.9 - MAJOR DEPRESSIVE DISORDER, SINGLE EPISODE, UNSPECIFIED (6) Diabetes Code(s): E11.9 - TYPE 2 DIABETES MELLITUS WITHOUT COMPLICATIONS (7) Memory deficit Code(s): R41.3 - OTHER AMNESIA (8) Atrial fibrillation with rapid ventricular response Assessment/Plan: Remains rapid ventricular response with even very mild exertion. Will increase metoprolol ER to 125 mg daily. On lovenox 1 mg/kg BW until warfarin results in INR level 2-3 (cannot use DOAC because of valvular AF: s/p mitral valve clip). Await records of prior cardiac workup (? in record of former admission here). Code(s): I48.91 - UNSPECIFIED ATRIAL FIBRILLATION (9) Hypomagnesemia Assessment/Plan: Replete, and keep Mg level 2.0-2.4. Code(s): E83.42 - HYPOMAGNESEMIA (10) Spondylosis with compression of nerve root of lumbosacral region Code(s): M47.27 - OTHER SPONDYLOSIS WITH RADICULOPATHY, LUMBOSACRAL REGION (11) Diastolic CHF Code(s): I50.30 - UNSPECIFIED DIASTOLIC (CONGESTIVE) HEART FAILURE
[2019-12-23] MEDS: VALSARTAN 40 MG TABLET (FP) PO SCH (10:05)
[2019-12-23] MEDS: ENOXAPARIN NA (PORCINE) 80 MG/0.8 ML DISP.SYRIN SQ SCH ×2 (10:05→21:09)
[2019-12-23] MEDS: DOCUSATE SODIUM 100 MG CAPSULE (FP) PO SCH ×3 (10:05→21:05)
[2019-12-23] MEDS: BENZTROPINE MESYLATE 0.5 MG TABLET (FP) PO SCH ×3 (10:05→21:05)
[2019-12-23] MEDS ORDERED: MAGNESIUM 1GM/D5W - 1 GM/100 ML IVPB IVPB ONE (10:32)
[2019-12-23] MEDS ORDERED: metoPROLOL SUCCINATE 25 MG TAB.SR.24H (FP) PO ONE (10:45)
--- NOTE | 2019-12-23 13:26 | EKG ---
Test Reason : Blood Pressure : / mmHG Vent. Rate : 108 BPM Atrial Rate : 122 BPM P-R Int : 000 ms QRS Dur : 074 ms QT Int : 352 ms P-R-T Axes : 000 -50 -71 degrees QTc Int : 471 ms ATRIAL FIBRILLATION WITH RAPID VENTRICULAR RESPONSE LEFT ANTERIOR FASCICULAR BLOCK NONSPECIFIC ST AND T WAVE ABNORMALITY ABNORMAL ECG WHEN COMPARED WITH ECG OF 20-DEC-2019 07:42, ATRIAL FIBRILLATION HAS REPLACED ATRIAL FLUTTER Confirmed by Neil Ramirez MD ([id number]) on 12/23/2019 1:25:59 PM Referred By: Sushila CASILLAS Confirmed By:Neil Ramirez MD
[2019-12-23] MEDS: LIDOCAINE 5% TOPICAL PATCH TP SCH (17:26)
[2019-12-23] MEDS ORDERED: WARFARIN NA 5 MG TABLET (UD) PO SCH (18:00)
[2019-12-23] MEDS: SENNOSIDES 8.6MG TABLET (FP) PO SCH ×2 (21:03→21:05)
[2019-12-23] MEDS: LIDOCAINE PATCH REMOVAL MC SCH (21:09)
[2019-12-23] MEDS: ATORVASTATIN CA 20 MG TABLET (FP) PO SCH (21:09)
[2019-12-24] MEDS: INSULIN SLIDING SCALE (NOVOLOG) 1 VIAL SQ SCH ×4 (06:00→21:08)
[2019-12-24] MEDS: CARBIDOPA/LEVODOPA 25/100 TABLET (FP) PO SCH ×3 (06:11→21:08)
[2019-12-24 07:59] LABS: BASO % 0.7 % (0-2.0); HEMATOCRIT 36.6 % (32.4-45.2); HEMOGLOBIN 12.1 GM/dL (10.7-15.3); LYMPH % 25.3 % (8-40); MCH 27.4 pg (25.7-33.7); MCHC 33.1 g/dl (32.0-36.0); MEAN PLT VOLUME 9.4 fl (7.5-11.1); MONO % 8.3 % (3.8-10.2); NEUT % 63.7 % (42.8-82.8); PLATELET COUNT 315 K/MM3 (134-434); RBC 4.41 M/mm3 (3.60-5.2); RDW 14.7 % (11.6-15.6); WHITE BLOOD COUNT 7.4 K/mm3 (4.0-10.0)
[2019-12-24 08:20] LABS: INR 1.25 (0.83-1.09); PROTHROMBIN TIME (PATIENT) 14.8 SEC (9.7-13.0)
[2019-12-24 08:26] LABS: ALBUMIN 2.6 g/dl (3.4-5.0); BILIRUBIN,TOTAL 0.8 mg/dL (0.2-1); BLOOD UREA NITROGEN 9.5 mg/dL (7-18); CALCIUM 8.8 mg/dL (8.5-10.1); CREATININE 0.7 mg/dL (0.55-1.3); MAGNESIUM 1.9 mg/dL (1.8-2.4); POTASSIUM 4.1 mmol/L (3.5-5.1); TOT PROT 6.7 g/dl (6.4-8.2)
[2019-12-24] MEDS: DOCUSATE SODIUM 100 MG CAPSULE (FP) PO SCH ×2 (09:00→21:07)
[2019-12-24] MEDS ORDERED: PT OWN MED DRAWER 7, Y5N ONE ×2 (09:13→20:21)
[2019-12-24] MEDS: VALSARTAN 40 MG TABLET (FP) PO SCH (09:16)
[2019-12-24] MEDS: ENOXAPARIN NA (PORCINE) 80 MG/0.8 ML DISP.SYRIN SQ SCH ×2 (09:16→21:07)
[2019-12-24] MEDS: BENZTROPINE MESYLATE 0.5 MG TABLET (FP) PO SCH ×2 (09:17→21:06)
[2019-12-24] MEDS: LIDOCAINE 5% TOPICAL PATCH TP SCH (09:17)
[2019-12-24] MEDS ORDERED: INSULIN (NOVOLOG) ASPART 100 UNITS/ML 10ML VIAL ONE (12:19)
--- NOTE | 2019-12-24 13:12 | PN ---
Physical Exam: SUBJECTIVE: Patient seen and examined at the bedside. denies any complaints. Spoke to son who informed me that patient was on metoprolol 100mg tid at home for rate control. she was initially on coumadin but coumadin discontinued after patient took an extra dosage of coumadin and had a supratherapeutic inr with AMS that required hospitalization. She was then transitioned to eliquis BID per son. OBJECTIVE: Patient with tardive dyskinetic movements of mouth/head. No complaints offered. ----- Patient is a 69 year old female with a significant past medical history of parkinson disease, a-fib, CAD s/p CABG, cardiac arrest s/p ROSC, diabetes II, hypertension, HLD, systolic/diastolic chf, STEMI with use of IABP (October/2018) , splenic infarct, MR post fina-clip presents to the [facility] ED after fall and collapse. ------ discussed with cardiology who recommends lovenox with a bridge to coumadin. Vital Signs Period Temp Pulse Resp BP Sys/Castillo Pulse Ox Last 24 Hr 97.3 F-98.1 F 68-116 18-20 84-135/53-79 98 GENERAL: The patient is awake, alert, and oriented, in no acute distress, tardive dyskinetic movements HEAD: Normal with no signs of trauma. EYES: PERRL, extraocular movements intact, sclera anicteric, conjunctiva clear. No ptosis. ENT: Ears normal, nares patent, oropharynx clear without exudates, moist mucous membranes. NECK: Trachea midline, full range of motion, supple. LUNGS: Breath sounds equal, clear to auscultation bilaterally HEART: Regular rate and rhythm ABDOMEN: Soft, nontender, nondistended, normoactive bowel sounds EXTREMITIES: no edema. muscle Weakness (generalized weakness) NEUROLOGICAL: garbled speech Laboratory Results - last 24 hr 12/23/19 12/23/19 12/24/19 17:07 21:01 05:22 WBC RBC Hgb Hct MCV MCH MCHC RDW Plt Count MPV Absolute Neuts (auto) Neutrophils % Lymphocytes % Monocytes % Eosinophils % Basophils % Nucleated RBC % PT with INR INR Sodium Potassium Chloride Carbon Dioxide Anion Gap BUN Creatinine Est GFR (CKD-EPI)AfAm Est GFR (CKD-EPI)NonAf POC Glucometer 189 196 127 Random Glucose Calcium Magnesium Total Bilirubin AST ALT Alkaline Phosphatase Total Protein Albumin 12/24/19 12/24/19 12/24/19 06:48 06:48 06:48 WBC 7.4 RBC 4.41 Hgb 12.1 Hct 36.6 MCV 83.0 MCH 27.4 MCHC 33.1 RDW 14.7 Plt Count 315 MPV 9.4 Absolute Neuts (auto) 4.7 Neutrophils % 63.7 Lymphocytes % 25.3 D Monocytes % 8.3 Eosinophils % 2.0 Basophils % 0.7 Nucleated RBC % 0 PT with INR 14.80 H INR 1.25 H Sodium 142 Potassium 4.1 Chloride 109 H Carbon Dioxide 25 Anion Gap 8 BUN 9.5 Creatinine 0.7 Est GFR (CKD-EPI)AfAm 102.46 Est GFR (CKD-EPI)NonAf 88.40 POC Glucometer Random Glucose 142 H Calcium 8.8 Magnesium 1.9 Total Bilirubin 0.8 AST 14 L ALT 7 L Alkaline Phosphatase 85 Total Protein 6.7 Albumin 2.6 L 12/24/19 12:18 WBC RBC Hgb Hct MCV MCH MCHC RDW Plt Count MPV Absolute Neuts (auto) Neutrophils % Lymphocytes % Monocytes % Eosinophils % Basophils % Nucleated RBC % PT with INR INR Sodium Potassium Chloride Carbon Dioxide Anion Gap BUN Creatinine Est GFR (CKD-EPI)AfAm Est GFR (CKD-EPI)NonAf POC Glucometer 263 Random Glucose Calcium Magnesium Total Bilirubin AST ALT Alkaline Phosphatase Total Protein Albumin Active Medications Generic Name Dose Route Start Last Admin Trade Name Freq PRN Reason Stop Dose Admin Acetaminophen 650 mg 12/20/19 17:34 Tylenol - PO Q6H PRN PAIN LEVEL 4 - 6 Atorvastatin Calcium 20 mg 12/20/19 22:00 12/23/19 21:09 Lipitor - PO 20 mg HS JESSICA Administration Benztropine Mesylate 0.5 mg 12/22/19 10:00 12/24/19 09:17 Cogentin - PO 0.5 mg BID JESSICA Administration Carbidopa/Levodopa 1 each 12/22/19 14:00 12/24/19 06:11 Sinemet 25/100 - PO 1 each TID JESSICA Administration Docusate Sodium 100 mg 12/20/19 22:00 12/24/19 09:00 Colace - PO Not Given BID JESSICA Enoxaparin Sodium 80 mg 12/23/19 09:45 12/24/19 09:16 Lovenox - SQ 80 mg BID JESSICA Administration Insulin Aspart 1 vial 12/20/19 22:00 12/24/19 12:23 Novolog Vial Sliding Scale - SQ 4 units ACHS JESSICA Administration Protocol Lidocaine 2 patch 12/23/19 14:00 12/24/19 09:17 Lidoderm Patch - TP 2 patch DAILY JESSICA Administration Metoprolol Succinate 125 mg 12/24/19 10:00 12/24/19 09:16 Toprol Xl - PO 125 mg DAILY JESSICA Administration Miscellaneous 1 each 12/23/19 22:00 12/23/19 21:09 Lidoderm Patch Removal MC 1 each DAILY@2200 JESSICA Administration Senna 2 tab 12/20/19 22:00 12/23/19 21:05 Senna - PO Not Given HS [facility] Valsartan 40 mg 12/21/19 10:00 12/24/19 09:16 Diovan - PO 40 mg DAILY JESSICA Administration Warfarin Sodium 7.5 mg 12/24/19 18:00 Coumadin - PO DAILY@1800 JESSICA ASSESSMENT/PLAN: Problem List - Problems (1) Parkinson disease Assessment/Plan: sinemet increased to TID dosing Code(s): G20 - PARKINSON'S DISEASE (2) Status post implantation of mitral valve leaflet clip Code(s): Z98.890 - OTHER SPECIFIED POSTPROCEDURAL STATES; Z95.818 - PRESENCE OF OTHER CARDIAC IMPLANTS AND GRAFTS (3) Syncope and collapse Assessment/Plan: physical therapy ordered syncope workup initiated Code(s): R55 - SYNCOPE AND COLLAPSE (4) Tardive dyskinesia Assessment/Plan: seen by neurology-Dr Lr Trial of Cogentin 0.5 mg twice daily. Increase the carbidopa to 3 times daily. c/w Physical therapy. fall precautions Code(s): G24.01 - DRUG INDUCED SUBACUTE DYSKINESIA (5) Diabetes Code(s): E11.9 - TYPE 2 DIABETES MELLITUS WITHOUT COMPLICATIONS (6) Heart failure, chronic, with acute decompensation Code(s): I50.9 - HEART FAILURE, UNSPECIFIED Qualifiers: Heart failure type: diastolic Qualified Code(s): I50.33 - Acute on chronic diastolic (congestive) heart failure (7) Atrial fibrillation with rapid ventricular response Assessment/Plan: Remains rapid ventricular response with mild exertion. metoprolol increased by cardiology to 125mg daily. cannot use DOAC because of valvular AF: s/p mitral valve clip on lovenox 80 bid with a bridge to coumadin to achieve inr between 2-3 Code(s): I48.91 - UNSPECIFIED ATRIAL FIBRILLATION (8) FH: mitral valve repair Code(s): Z82.49 - FAMILY HX OF ISCHEM HEART DIS AND OTH DIS OF THE [facility] SYS (9) HTN (hypertension) Code(s): I10 - ESSENTIAL (PRIMARY) HYPERTENSION Qualifiers: Hypertension type: unspecified Qualified Code(s): I10 - Essential (primary ) hypertension (10) Prophylactic measure Assessment/Plan: fen PO fluids magnesium repleted f: PO adequate e: monitor electrolytes n: soft diet Code(s): Z29.9 - ENCOUNTER FOR PROPHYLACTIC MEASURES, UNSPECIFIED (11) DVT prophylaxis Assessment/Plan: lovenox 80mg bid with a bridge to coumadin to achieve inr goal between 2-3 Code(s): Z29.9 - ENCOUNTER FOR PROPHYLACTIC MEASURES, UNSPECIFIED Visit type - Emergency Visit Emergency Visit: Yes ED Registration Date: 12/20/19 Care time: The patient presented to the Emergency Department on the above date and was hospitalized for further evaluation of their emergent condition. - New Patient This patient is new to me today: No - Critical Care Critical Care patient: No - Discharge Referral Referred to [facility] Med P.C.: No
--- NOTE | 2019-12-24 13:48 | PN ---
Progress Note, Physician History of Present Illness: Nasima Lamb is a 68 yo F w a hx of Parkinson's, a-fib, CAD s/p CABG, cardiac arrest s/p ROSC, T2DM, HTN/HLD, S & D CHF, STEMI with use of IABP (October/2018 ) , splenic infarct, MR post Sandy-Clip presents to the [facility] er after she fell down and collapsed on the street this morning at 6 am. She states she was walking home and all of a sudden felt weak, collapsed, fell down and hit her head. She does not remember well what happened or how it happened. Here in the ER she denies having a headache or any chest pain. She denies being short of breath. She states she is not currently in any pain. - Current Medication List Current Medications: Active Medications Acetaminophen (Tylenol -) 650 mg PO Q6H PRN PRN Reason: PAIN LEVEL 4 - 6 Atorvastatin Calcium (Lipitor -) 20 mg PO [facility] Last Admin: 12/23/19 21:09 Dose: 20 mg Benztropine Mesylate (Cogentin -) 0.5 mg PO BID [facility] Last Admin: 12/24/19 09:17 Dose: 0.5 mg Carbidopa/Levodopa (Sinemet 25/100 -) 1 each PO TID [facility] Last Admin: 12/24/19 06:11 Dose: 1 each Docusate Sodium (Colace -) 100 mg PO BID [facility] Last Admin: 12/24/19 09:00 Dose: Not Given Enoxaparin Sodium (Lovenox -) 80 mg SQ BID [facility] Last Admin: 12/24/19 09:16 Dose: 80 mg Insulin Aspart (Novolog Vial Sliding Scale -) 1 vial SQ ACHS [facility]; Protocol Last Admin: 12/24/19 12:23 Dose: 4 units Lidocaine (Lidoderm Patch -) 2 patch TP DAILY [facility] Last Admin: 12/24/19 09:17 Dose: 2 patch Metoprolol Succinate (Toprol Xl -) 125 mg PO DAILY [facility] Last Admin: 12/24/19 09:16 Dose: 125 mg Miscellaneous (Lidoderm Patch Removal) 1 each MC DAILY@2200 [facility] Last Admin: 12/23/19 21:09 Dose: 1 each Senna (Senna -) 2 tab PO [facility] Last Admin: 12/23/19 21:05 Dose: Not Given Valsartan (Diovan -) 40 mg PO DAILY [facility] Last Admin: 12/24/19 09:16 Dose: 40 mg Warfarin Sodium (Coumadin -) 7.5 mg PO DAILY@1800 [facility] - Objective Vital Signs: Vital Signs Temperature 98 F 12/24/19 09:00 Pulse Rate 116 H 12/24/19 09:00 Respiratory Rate 18 12/24/19 09:00 Blood Pressure 119/69 12/24/19 09:00 O2 Sat by Pulse Oximetry (%) 98 12/23/19 21:00 Eyes: Yes: WNL, Conjunctiva Clear, EOM Intact HENT: Yes: WNL, Atraumatic, Normocephalic Neck: Yes: WNL, Supple, Trachea Midline Cardiovascular: Yes: Pulse Irregular, S1, S2 Respiratory: Yes: WNL, Regular, CTA Bilaterally Gastrointestinal: Yes: WNL, Normal Bowel Sounds Genitourinary: Yes: WNL Musculoskeletal: Yes: WNL Extremities: Yes: WNL Edema: No Integumentary: Yes: WNL Neurological: Yes: WNL, Alert, Oriented ...Motor Strength: WNL Psychiatric: Yes: WNL Labs: CBC, BMP 12/24/19 06:48 12/24/19 06:48 INR, PTT INR 1.25 (0.83-1.09) H 12/24/19 06:48 Problem List - Problems (1) Atrial fibrillation Code(s): I48.91 - UNSPECIFIED ATRIAL FIBRILLATION (2) Chronic pain of both knees Code(s): M25.561 - PAIN IN RIGHT KNEE; M25.562 - PAIN IN LEFT KNEE; G89.29 - OTHER CHRONIC PAIN (3) Dementia Code(s): F03.90 - UNSPECIFIED DEMENTIA WITHOUT BEHAVIORAL DISTURBANCE (4) Parkinson disease Code(s): G20 - PARKINSON'S DISEASE (5) Parkinsonism Code(s): G20 - PARKINSON'S DISEASE (6) Prophylactic measure Code(s): Z29.9 - ENCOUNTER FOR PROPHYLACTIC MEASURES, UNSPECIFIED (7) Status post fall Code(s): Z91.81 - HISTORY OF FALLING (8) Syncope and collapse Code(s): R55 - SYNCOPE AND COLLAPSE (9) Tardive dyskinesia Code(s): G24.01 - DRUG INDUCED SUBACUTE DYSKINESIA (10) Acute on chronic systolic and diastolic heart failure, NYHA class 1 Code(s): I50.43 - ACUTE ON CHRONIC COMBINED SYSTOLIC AND DIASTOLIC HRT FAIL (11) Depression Code(s): F32.9 - MAJOR DEPRESSIVE DISORDER, SINGLE EPISODE, UNSPECIFIED (12) Diabetes Code(s): E11.9 - TYPE 2 DIABETES MELLITUS WITHOUT COMPLICATIONS (13) Heart failure, chronic, with acute decompensation Code(s): I50.9 - HEART FAILURE, UNSPECIFIED Qualifiers: Heart failure type: diastolic Qualified Code(s): I50.33 - Acute on chronic diastolic (congestive) heart failure (14) Hepatic congestion Code(s): K76.1 - CHRONIC PASSIVE CONGESTION OF LIVER (15) Memory deficit Code(s): R41.3 - OTHER AMNESIA (16) Parkinson disease Code(s): G20 - PARKINSON'S DISEASE (17) Splenic infarct Code(s): D73.5 - INFARCTION OF SPLEEN (18) Supratherapeutic INR Code(s): R79.1 - ABNORMAL COAGULATION PROFILE (19) Anemia Code(s): D64.9 - ANEMIA, UNSPECIFIED (20) Atrial fibrillation with rapid ventricular response Code(s): I48.91 - UNSPECIFIED ATRIAL FIBRILLATION (21) FH: mitral valve repair Code(s): Z82.49 - FAMILY HX OF ISCHEM HEART DIS AND OTH DIS OF THE CIRC SYS (22) HTN (hypertension) Code(s): I10 - ESSENTIAL (PRIMARY) HYPERTENSION Qualifiers: Hypertension type: unspecified Qualified Code(s): I10 - Essential (primary ) hypertension (23) Hyperlipidemia Code(s): E78.5 - HYPERLIPIDEMIA, UNSPECIFIED Qualifiers: Hyperlipidemia type: pure hypercholesterolemia Qualified Code(s): E78.00 - Pure hypercholesterolemia, unspecified; E78.0 - Pure hypercholesterolemia (24) Hypothyroid Code(s): E03.9 - HYPOTHYROIDISM, UNSPECIFIED (25) Need for assistance due to unsteady gait Code(s): R26.89 - OTHER ABNORMALITIES OF GAIT AND MOBILITY (26) Parkinsonian tremor Code(s): G20 - PARKINSON'S DISEASE (27) S/P mitral valve repair Code(s): Z98.890 - OTHER SPECIFIED POSTPROCEDURAL STATES (28) Subcortical dementia Code(s): F03.90 - UNSPECIFIED DEMENTIA WITHOUT BEHAVIORAL DISTURBANCE (29) Systolic CHF Code(s): I50.20 - UNSPECIFIED SYSTOLIC (CONGESTIVE) HEART FAILURE (30) T2DM (type 2 diabetes mellitus) Code(s): E11.9 - TYPE 2 DIABETES MELLITUS WITHOUT COMPLICATIONS Qualifiers: Diabetes 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 EKG and telemetry: AF with RVR. Metoprolol dose increased. Code(s): R07.89 - OTHER CHEST PAIN (3) Parkinson disease Code(s): G20 - PARKINSON'S DISEASE (4) Status post fall Code(s): Z91.81 - HISTORY OF FALLING (5) Depression Code(s): F32.9 - MAJOR DEPRESSIVE DISORDER, SINGLE EPISODE, UNSPECIFIED (6) Diabetes Code(s): E11.9 - TYPE 2 DIABETES MELLITUS WITHOUT COMPLICATIONS (7) Memory deficit Code(s): R41.3 - OTHER AMNESIA (8) Atrial fibrillation with rapid ventricular response Assessment/Plan: Remains rapid ventricular response with even very mild exertion. Will increase metoprolol ER to 125 mg daily. On lovenox 1 mg/kg BW until warfarin results in INR level 2-3 (cannot use DOAC because of valvular AF: s/p mitral valve clip). Await records of prior cardiac workup (? in record of former admission here). Code(s): I48.91 - UNSPECIFIED ATRIAL FIBRILLATION (9) Hypomagnesemia Assessment/Plan: Replete, and keep Mg level 2.0-2.4. Code(s): E83.42 - HYPOMAGNESEMIA (10) Spondylosis with compression of nerve root of lumbosacral region Code(s): M47.27 - OTHER SPONDYLOSIS WITH RADICULOPATHY, LUMBOSACRAL REGION (11) Diastolic CHF Code(s): I50.30 - UNSPECIFIED DIASTOLIC (CONGESTIVE) HEART FAILURE
[2019-12-24] MEDS ORDERED: WARFARIN NA 5 MG TABLET (UD) PO SCH (18:00)
[2019-12-24] MEDS: ATORVASTATIN CA 20 MG TABLET (FP) PO SCH (21:07)
[2019-12-24] MEDS: LIDOCAINE PATCH REMOVAL MC SCH (21:07)
[2019-12-24] MEDS: SENNOSIDES 8.6MG TABLET (FP) PO SCH (21:08)
[2019-12-25] MEDS: INSULIN SLIDING SCALE (NOVOLOG) 1 VIAL SQ SCH ×4 (07:00→21:29)
[2019-12-25] MEDS: CARBIDOPA/LEVODOPA 25/100 TABLET (FP) PO SCH ×3 (07:00→21:28)
[2019-12-25 07:41] LABS: INR 1.39 (0.83-1.09); PROTHROMBIN TIME (PATIENT) 16.5 SEC (9.7-13.0)
[2019-12-25 07:42] LABS: EOS % 1.8 % (0-4.5); HEMOGLOBIN 12.4 GM/dL (10.7-15.3); LYMPH % 22.7 % (8-40); MCH 27.7 pg (25.7-33.7); MCHC 33.4 g/dl (32.0-36.0); MEAN PLT VOLUME 9.7 fl (7.5-11.1); MONO % 7.7 % (3.8-10.2); NEUT % 66.8 % (42.8-82.8); PLATELET COUNT 286 K/MM3 (134-434); RBC 4.46 M/mm3 (3.60-5.2); RDW 14.5 % (11.6-15.6); WHITE BLOOD COUNT 7.3 K/mm3 (4.0-10.0)
[2019-12-25 07:57] LABS: ALBUMIN 2.7 g/dl (3.4-5.0); BILIRUBIN,TOTAL 0.4 mg/dL (0.2-1); BLOOD UREA NITROGEN 8.9 mg/dL (7-18); CALCIUM 8.8 mg/dL (8.5-10.1); CREATININE 0.7 mg/dL (0.55-1.3); MAGNESIUM 1.8 mg/dL (1.8-2.4); POTASSIUM 3.9 mmol/L (3.5-5.1); TOT PROT 6.9 g/dl (6.4-8.2)
[2019-12-25] MEDS: DOCUSATE SODIUM 100 MG CAPSULE (FP) PO SCH ×2 (09:44→21:29)
[2019-12-25] MEDS: ENOXAPARIN NA (PORCINE) 80 MG/0.8 ML DISP.SYRIN SQ SCH (09:44)
[2019-12-25] MEDS: VALSARTAN 40 MG TABLET (FP) PO SCH (09:44)
[2019-12-25] MEDS: LIDOCAINE 5% TOPICAL PATCH TP SCH (09:45)
[2019-12-25] MEDS: BENZTROPINE MESYLATE 0.5 MG TABLET (FP) PO SCH ×2 (09:45→21:29)
[2019-12-25] MEDS ORDERED: PT OWN MED DRAWER 7, Y5N ONE ×2 (10:11→13:27)
[2019-12-25] MEDS ORDERED: WARFARIN NA 7.5 MG TABLET (FP) PO SCH (14:16)
--- NOTE | 2019-12-25 14:16 | PN ---
Physical Exam: SUBJECTIVE: Patient seen and examined. no pain or shortness of breath. feels well OBJECTIVE: Patient with tardive dyskinetic movements of mouth/head. No complaints offered. ----- Patient is a 68 year old female with a significant past medical history of parkinson disease, a-fib, CAD s/p CABG, cardiac arrest s/p ROSC, diabetes II, hypertension, HLD, systolic/diastolic chf, STEMI with use of IABP (October/2018), splenic infarct, MR post fina-clip presents to the [facility] ED after fall and collapse. ------ discussed with cardiology who recommends lovenox with a bridge to coumadin. per son, patient was on eliquis bid at home as well as metoprolol 100 tid. Vital Signs Period Temp Pulse Resp BP Sys/Castillo Pulse Ox Last 24 Hr 97.6 F-98.4 F 94-104 20-22 100-129/65-74 96-98 GENERAL: The patient is awake, alert, and oriented, in no acute distress, tardive dyskinetic movements HEAD: Normal with no signs of trauma. EYES: PERRL, extraocular movements intact, sclera anicteric, conjunctiva clear. No ptosis. ENT: Ears normal, nares patent, oropharynx clear without exudates, moist mucous membranes. NECK: Trachea midline, full range of motion, supple. LUNGS: Breath sounds equal, clear to auscultation bilaterally HEART: Regular rate and rhythm ABDOMEN: Soft, nontender, nondistended, normoactive bowel sounds EXTREMITIES: no edema. muscle Weakness (generalized weakness) NEUROLOGICAL: garbled speech Laboratory Results - last 24 hr 12/23/19 12/24/19 12/24/19 06:02 16:51 21:06 WBC RBC Hgb Hct MCV MCH MCHC RDW Plt Count MPV Absolute Neuts (auto) Neutrophils % Lymphocytes % Monocytes % Eosinophils % Basophils % Nucleated RBC % PT with INR INR Sodium Potassium Chloride Carbon Dioxide Anion Gap BUN Creatinine Est GFR (CKD-EPI)AfAm Est GFR (CKD-EPI)NonAf POC Glucometer 185 167 Random Glucose Calcium Magnesium Total Bilirubin AST ALT Alkaline Phosphatase Total Protein Albumin Aldolase 4.1 12/25/19 12/25/19 12/25/19 05:54 06:20 06:20 WBC 7.3 RBC 4.46 Hgb 12.4 Hct 37.0 MCV 83.0 MCH 27.7 MCHC 33.4 RDW 14.5 Plt Count 286 MPV 9.7 Absolute Neuts (auto) 4.9 Neutrophils % 66.8 Lymphocytes % 22.7 Monocytes % 7.7 Eosinophils % 1.8 Basophils % 1.0 Nucleated RBC % 0 PT with INR 16.50 H INR 1.39 H Sodium Potassium Chloride Carbon Dioxide Anion Gap BUN Creatinine Est GFR (CKD-EPI)AfAm Est GFR (CKD-EPI)NonAf POC Glucometer 139 Random Glucose Calcium Magnesium Total Bilirubin AST ALT Alkaline Phosphatase Total Protein Albumin Aldolase 12/25/19 12/25/19 06:20 11:17 WBC RBC Hgb Hct MCV MCH MCHC RDW Plt Count MPV Absolute Neuts (auto) Neutrophils % Lymphocytes % Monocytes % Eosinophils % Basophils % Nucleated RBC % PT with INR INR Sodium 143 Potassium 3.9 Chloride 109 H Carbon Dioxide 27 Anion Gap 7 L BUN 8.9 Creatinine 0.7 Est GFR (CKD-EPI)AfAm 102.46 Est GFR (CKD-EPI)NonAf 88.40 POC Glucometer 257 Random Glucose 122 H Calcium 8.8 Magnesium 1.8 Total Bilirubin 0.4 AST 14 L ALT 6 L Alkaline Phosphatase 86 Total Protein 6.9 Albumin 2.7 L Aldolase Active Medications Generic Name Dose Route Start Last Admin Trade Name Freq PRN Reason Stop Dose Admin Acetaminophen 650 mg 12/20/19 17:34 Tylenol - PO Q6H PRN PAIN LEVEL 4 - 6 Atorvastatin Calcium 20 mg 12/20/19 22:00 12/24/19 21:07 Lipitor - PO 20 mg HS JESSICA Administration Benztropine Mesylate 0.5 mg 12/22/19 10:00 12/25/19 09:45 Cogentin - PO 0.5 mg BID JESSICA Administration Carbidopa/Levodopa 1 each 12/22/19 14:00 12/25/19 13:47 Sinemet 25/100 - PO 1 each TID JESSICA Administration Docusate Sodium 100 mg 12/20/19 22:00 12/25/19 09:44 Colace - PO 100 mg BID JESSICA Administration Enoxaparin Sodium 80 mg 12/23/19 09:45 12/25/19 09:44 Lovenox - SQ 80 mg BID JESSICA Administration Insulin Aspart 1 vial 12/20/19 22:00 12/25/19 12:21 Novolog Vial Sliding Scale - SQ 4 units ACHS JESSICA Administration Protocol Lidocaine 2 patch 12/23/19 14:00 12/25/19 09:45 Lidoderm Patch - TP 2 patch DAILY JESSICA Administration Metoprolol Succinate 125 mg 12/24/19 10:00 12/25/19 09:44 Toprol Xl - PO 125 mg DAILY JESSICA Administration Miscellaneous 1 each 12/23/19 22:00 12/24/19 21:07 Lidoderm Patch Removal MC 1 each DAILY@2200 JESSICA Administration Senna 2 tab 12/20/19 22:00 12/24/19 21:08 Senna - PO 2 tab HS JESSICA Administration Valsartan 40 mg 12/21/19 10:00 12/25/19 09:44 Diovan - PO 40 mg DAILY JESSICA Administration Warfarin Sodium 7.5 mg 12/24/19 18:00 12/24/19 17:44 Coumadin - PO 7.5 mg DAILY@1800 JESSICA Administration ASSESSMENT/PLAN: Problem List - Problems (1) Parkinson disease Assessment/Plan: sinemet increased to TID dosing Code(s): G20 - PARKINSON'S DISEASE (2) Status post implantation of mitral valve leaflet clip Code(s): Z98.890 - OTHER SPECIFIED POSTPROCEDURAL STATES; Z95.818 - PRESENCE OF OTHER CARDIAC IMPLANTS AND GRAFTS (3) Syncope and collapse Assessment/Plan: physical therapy ordered syncope workup initiated Code(s): R55 - SYNCOPE AND COLLAPSE (4) Tardive dyskinesia Assessment/Plan: seen by neurology-Dr Lr Trial of Cogentin 0.5 mg twice daily. Increase the carbidopa to 3 times daily. c/w Physical therapy. fall precautions Code(s): G24.01 - DRUG INDUCED SUBACUTE DYSKINESIA (5) Diabetes Assessment/Plan: on novolog ss Code(s): E11.9 - TYPE 2 DIABETES MELLITUS WITHOUT COMPLICATIONS (6) Heart failure, chronic, with acute decompensation Code(s): I50.9 - HEART FAILURE, UNSPECIFIED Qualifiers: Heart failure type: diastolic Qualified Code(s): I50.33 - Acute on chronic diastolic (congestive) heart failure (7) Atrial fibrillation with rapid ventricular response Assessment/Plan: metoprolol increased by cardiology to 125mg daily. cannot use DOAC because of valvular AF: s/p mitral valve clip on lovenox 80 bid with a bridge to coumadin to achieve inr between 2-3 Code(s): I48.91 - UNSPECIFIED ATRIAL FIBRILLATION (8) FH: mitral valve repair Code(s): Z82.49 - FAMILY HX OF ISCHEM HEART DIS AND OTH DIS OF THE CIRC SYS (9) HTN (hypertension) Code(s): I10 - ESSENTIAL (PRIMARY) HYPERTENSION Qualifiers: Hypertension type: unspecified Qualified Code(s): I10 - Essential (primary) hypertension (10) Prophylactic measure Assessment/Plan: fen PO fluids magnesium repleted f: PO adequate e: monitor electrolytes n: soft diet Code(s): Z29.9 - ENCOUNTER FOR PROPHYLACTIC MEASURES, UNSPECIFIED (11) DVT prophylaxis Assessment/Plan: lovenox 80mg bid with a bridge to coumadin to achieve inr goal between 2-3 Code(s): Z29.9 - ENCOUNTER FOR PROPHYLACTIC MEASURES, UNSPECIFIED Visit type - Emergency Visit Emergency Visit: Yes ED Registration Date: 12/20/19 Care time: The patient presented to the Emergency Department on the above date and was hospitalized for further evaluation of their emergent condition. - New Patient This patient is new to me today: No - Critical Care Critical Care patient: No - Discharge Referral Referred to [facility] Med P.C.: No
--- NOTE | 2019-12-25 15:25 | PN ---
Progress Note, Physician Chief Complaint: Pt OOB in chair; History of Present Illness: 68 year old woman (b. [place]), with past medical history Parkinson's, A. fib,STEMI s/p CABG, s/p cardiac arrest, status post Rask, type 2 diabetes, hypertension, hyperlipidemia, splenic infarct, MR s/p clip, constipation, obesit y, presents to the emergency department after collapse versus syncope. Patient with poor recollection/poor historian unable to give adequate history. Denies headache, chest pain, shortness of breath at this time; history limited by Parkinson's, dementia. - Current Medication List Current Medications: Active Medications Acetaminophen (Tylenol -) 650 mg PO Q6H PRN PRN Reason: PAIN LEVEL 4 - 6 Atorvastatin Calcium (Lipitor -) 20 mg PO [facility] Last Admin: 12/24/19 21:07 Dose: 20 mg Documented by: Benztropine Mesylate (Cogentin -) 0.5 mg PO BID [facility] Last Admin: 12/25/19 09:45 Dose: 0.5 mg Documented by: Carbidopa/Levodopa (Sinemet 25/100 -) 1 each PO TID [facility] Last Admin: 12/25/19 13:47 Dose: 1 each Documented by: Docusate Sodium (Colace -) 100 mg PO BID [facility] Last Admin: 12/25/19 09:44 Dose: 100 mg Documented by: Enoxaparin Sodium (Lovenox -) 80 mg SQ BID [facility] Last Admin: 12/25/19 09:44 Dose: 80 mg Documented by: Insulin Aspart (Novolog Vial Sliding Scale -) 1 vial SQ [facility]; Protocol Last Admin: 12/25/19 12:21 Dose: 4 units Documented by: Lidocaine (Lidoderm Patch -) 2 patch TP DAILY [facility] Last Admin: 12/25/19 09:45 Dose: 2 patch Documented by: Metoprolol Succinate (Toprol Xl -) 125 mg PO DAILY [facility] Last Admin: 12/25/19 09:44 Dose: 125 mg Documented by: Miscellaneous (Lidoderm Patch Removal) 1 each MC DAILY@2200 [facility] Last Admin: 12/24/19 21:07 Dose: 1 each Documented by: Senna (Senna -) 2 tab PO [facility] Last Admin: 12/24/19 21:08 Dose: 2 tab Documented by: Valsartan (Diovan -) 40 mg PO DAILY [facility] Last Admin: 12/25/19 09:44 Dose: 40 mg Documented by: Warfarin Sodium (Coumadin -) 7.5 mg PO DAILY@1800 [facility] - Objective Vital Signs: Vital Signs Temperature 98.2 F 12/25/19 14:05 Pulse Rate 102 H 12/25/19 14:05 Respiratory Rate 20 12/25/19 14:05 Blood Pressure 116/68 12/25/19 14:05 O2 Sat by Pulse Oximetry (%) 98 12/25/19 09:00 Labs: CBC, BMP 12/25/19 06:20 12/25/19 06:20 INR, PTT INR 1.39 (0.83-1.09) H 12/25/19 06:20 Problem List - Problems (1) Status post implantation of mitral valve leaflet clip Code(s): Z98.890 - OTHER SPECIFIED POSTPROCEDURAL STATES; Z95.818 - PRESENCE OF OTHER CARDIAC IMPLANTS AND GRAFTS (2) Chest pain, atypical Assessment/Plan: TNI < 0.02 x 2. EKG and telemetry: AF with RVR. Metoprolol dose increased. Code(s): R07.89 - OTHER CHEST PAIN (3) Parkinson disease Code(s): G20 - PARKINSON'S DISEASE (4) Status post fall Code(s): Z91.81 - HISTORY OF FALLING (5) Depression Code(s): F32.9 - MAJOR DEPRESSIVE DISORDER, SINGLE EPISODE, UNSPECIFIED (6) Diabetes Code(s): E11.9 - TYPE 2 DIABETES MELLITUS WITHOUT COMPLICATIONS (7) Memory deficit Code(s): R41.3 - OTHER AMNESIA (8) Atrial fibrillation with rapid ventricular response Assessment/Plan: On metoprolol ER to 125 mg daily; better HR control. I discussed pt with ice rink attendant: pt can be placed on DOAC for AF, even with mitral clip. Will start apixaban 5 mg bid. DC warfarin and Lovenox.. Code(s): I48.91 - UNSPECIFIED ATRIAL FIBRILLATION (9) Spondylosis with compression of nerve root of lumbosacral region Code(s): M47.27 - OTHER SPONDYLOSIS WITH RADICULOPATHY, LUMBOSACRAL REGION (10) Diastolic CHF Code(s): I50.30 - UNSPECIFIED DIASTOLIC (CONGESTIVE) HEART FAILURE
[2019-12-25] MEDS: APIXABAN 5 MG TABLET PO SCH ×2 (18:09→21:29)
[2019-12-25] MEDS: ATORVASTATIN CA 20 MG TABLET (FP) PO SCH (21:29)
[2019-12-25] MEDS: SENNOSIDES 8.6MG TABLET (FP) PO SCH (21:29)
[2019-12-25] MEDS: LIDOCAINE PATCH REMOVAL MC SCH (21:30)
[2019-12-26] MEDS: INSULIN SLIDING SCALE (NOVOLOG) 1 VIAL SQ SCH ×4 (06:22→21:44)
[2019-12-26] MEDS: CARBIDOPA/LEVODOPA 25/100 TABLET (FP) PO SCH ×3 (06:22→21:38)
[2019-12-26 09:41] LABS: BASO % 0.9 % (0-2.0); HEMATOCRIT 37.9 % (32.4-45.2); HEMOGLOBIN 12.6 GM/dL (10.7-15.3); LYMPH % 16.1 % (8-40); MCH 27.6 pg (25.7-33.7); MCHC 33.2 g/dl (32.0-36.0); MEAN PLT VOLUME 9.1 fl (7.5-11.1); MONO % 6.3 % (3.8-10.2); NEUT % 75.7 % (42.8-82.8); PLATELET COUNT 321 K/MM3 (134-434); RBC 4.56 M/mm3 (3.60-5.2); RDW 14.4 % (11.6-15.6); WHITE BLOOD COUNT 8.7 K/mm3 (4.0-10.0)
[2019-12-26] MEDS ORDERED: PT OWN MED DRAWER 7, Y5N ONE ×2 (10:02→21:36)
[2019-12-26] MEDS: BENZTROPINE MESYLATE 0.5 MG TABLET (FP) PO SCH ×2 (10:03→21:39)
[2019-12-26] MEDS: VALSARTAN 40 MG TABLET (FP) PO SCH (10:03)
[2019-12-26] MEDS: APIXABAN 5 MG TABLET PO SCH ×2 (10:03→21:39)
[2019-12-26] MEDS: DOCUSATE SODIUM 100 MG CAPSULE (FP) PO SCH ×2 (10:04→21:39)
[2019-12-26] MEDS: LIDOCAINE 5% TOPICAL PATCH TP SCH (10:04)
[2019-12-26 10:07] LABS: ALBUMIN 2.7 g/dl (3.4-5.0); BILIRUBIN,TOTAL 0.4 mg/dL (0.2-1); BLOOD UREA NITROGEN 10.9 mg/dL (7-18); CALCIUM 8.9 mg/dL (8.5-10.1); CREATININE 0.8 mg/dL (0.55-1.3); MAGNESIUM 1.8 mg/dL (1.8-2.4); POTASSIUM 4.1 mmol/L (3.5-5.1); TOT PROT 7.2 g/dl (6.4-8.2)
--- NOTE | 2019-12-26 12:19 | DS ---
Physical Exam: SUBJECTIVE: Patient seen and examined at the bedside. No acute events overnight. OBJECTIVE: Patient is a 68 year old female with a significant past medical history of parkinson disease, a-fib, CAD s/p CABG, cardiac arrest s/p ROSC, diabetes II, hypertension, HLD, systolic/diastolic chf, STEMI with use of IABP (October), splenic infarct, MR post fina-clip presents to the [facility] ED after fall and collapse. During hospital stay, patient was evaluated by carbonator who recommended patient be placed on Eliquis 5mg BID and Metoprolol 125mg daily XL. Patient has a private carbonator that she will be seeing after her discharge at [facility]. She was able to ambulate >150 feet and therefore does not qualify for rehab at this time. SW making arrangements for patient to have outpatient inhouse PT if accepted by her insurance. Patient is encouraged to follow up with neurology as an outpatient as she has had her Sinemet increased during her hospital stay as well as a trail of Cogentin for tardive dyskinesia. ------ Vital Signs Period Temp Pulse Resp BP Sys/Castillo Pulse Ox Last 24 Hr 98 F-98.3 F 92-106 20-20 107-128/67-79 97 PHYSICAL EXAM GENERAL: The patient is awake, alert, and oriented, in no acute distress, tardive dyskinetic movements HEAD: Normal with no signs of trauma. EYES: PERRL, extraocular movements intact, sclera anicteric, conjunctiva clear. No ptosis. ENT: Ears normal, nares patent, oropharynx clear without exudates, moist mucous membranes. NECK: Trachea midline, full range of motion, supple. LUNGS: Breath sounds equal, clear to auscultation bilaterally HEART: Regular rate and rhythm ABDOMEN: Soft, nontender, nondistended, normoactive bowel sounds EXTREMITIES: no edema. muscle Weakness (generalized weakness) NEUROLOGICAL: garbled speech LABS Laboratory Results - last 24 hr 12/25/19 12/25/19 12/26/19 16:57 21:27 06:20 WBC RBC Hgb Hct MCV MCH MCHC RDW Plt Count MPV Absolute Neuts (auto) Neutrophils % Lymphocytes % Monocytes % Eosinophils % Basophils % Nucleated RBC % Sodium Potassium Chloride Carbon Dioxide Anion Gap BUN Creatinine Est GFR (CKD-EPI)AfAm Est GFR (CKD-EPI)NonAf POC Glucometer 130 192 155 Random Glucose Calcium Magnesium Total Bilirubin AST ALT Alkaline Phosphatase Total Protein Albumin 12/26/19 12/26/19 09:12 09:12 WBC 8.7 RBC 4.56 Hgb 12.6 Hct 37.9 MCV 83.0 MCH 27.6 MCHC 33.2 RDW 14.4 Plt Count 321 MPV 9.1 Absolute Neuts (auto) 6.6 Neutrophils % 75.7 Lymphocytes % 16.1 D Monocytes % 6.3 Eosinophils % 1.0 Basophils % 0.9 Nucleated RBC % 0 Sodium 137 Potassium 4.1 Chloride 105 Carbon Dioxide 25 Anion Gap 7 L BUN 10.9 Creatinine 0.8 Est GFR (CKD-EPI)AfAm 87.18 Est GFR (CKD-EPI)NonAf 75.22 POC Glucometer Random Glucose 261 H Calcium 8.9 Magnesium 1.8 Total Bilirubin 0.4 AST 19 ALT 7 L Alkaline Phosphatase 84 Total Protein 7.2 Albumin 2.7 L HOSPITAL COURSE: Date of Admission:12/20/19 Date of Discharge: 12/26/19 Minutes to complete discharge: 60 Discharge Summary Problems reviewed: Yes Reason For Visit: SYNCOPE AND COLLAPSE Current Active Problems Chest pain, atypical (Acute) Chronic pain of both knees (Acute) DVT prophylaxis (Acute) Dementia (Acute) Diastolic CHF (Acute) Parkinson disease (Acute) Parkinsonism (Acute) Prophylactic measure (Acute) Spondylosis with compression of nerve root of lumbosacral region (Acute) Status post fall (Acute) Status post implantation of mitral valve leaflet clip (Acute) Syncope and collapse (Acute) Tardive dyskinesia (Acute) Condition: Stable - Instructions Diet, Activity, Other Instructions: Mrs Lamb: You were admitted for syncope. During your stay your were evaluated by physical therapy and carbonator. We will be sending you home with the following medic ation changes. Start Eliquis 5mg TWICE per day - this is a blood thinner recommended for people with atrial fibrillation to prevent strokes. Start Metoprolol 125mg XL once per day (stop taking the Metoprolol that you have at home) - This medication helps control your heart from beating too fast Start Sinemet/Carbidopa/Levadopla THREE times per day - This medication is for your Parkinsons Start Cogentin 0.5mg TWICE per day - This medication will help control your upper body tremors/movements. Continue Diovan 40mg for blood pressure control Continue Lipitor 20mg daily for better cholesterol control Continue your diabetic medications that you were taking at home and follow up with your primary care doctor. Please follow up with Dr Lr (neurologist) and your carbonator. It is important that you follow up with your primary care doctor within 1 week after discharge from the hospital. Thank you for allowing us to care for you . Referrals: ON STAFF,NOT [Primary Care Provider] - Lila Lr MD [Staff Physician] - Disposition: VNS/HOME HEALTH CARE - Home Medications Comprehensive Discharge Medication List: Ambulatory Orders Valsartan [Diovan] 1 tab PO DAILY 12/20/19 Apixaban [Eliquis -] 5 mg PO BID #60 tablet 12/26/19 Atorvastatin Ca [Lipitor] 20 mg PO HS #30 tablet 12/26/19 Benztropine Mesylate [Cogentin -] 0.5 mg PO BID #60 tablet 12/26/19 Benztropine Mesylate [Cogentin -] 0.5 mg PO BID #60 tablet 12/26/19 Carbidopa/Levodopa 25/100 [Sinemet 25/100 -] 1 each PO TID #120 tablet 12/26/19 Metoprolol Succinate [Toprol XL -] 125 mg PO DAILY #90 tab.sr.24h 12/26/19 Valsartan [Diovan] 40 mg PO DAILY #0 tablet 12/26/19 Problem List - Problems (1) Parkinson disease Assessment/Plan: sinemet increased to TID dosing. will need outpatient follow up with neurology Code(s): G20 - PARKINSON'S DISEASE (2) Status post implantation of mitral valve leaflet clip Assessment/Plan: follow up with private carbonator. on eliquis 5 mg bid and metoprolol 125mg xl. Code(s): Z98.890 - OTHER SPECIFIED POSTPROCEDURAL STATES; Z95.818 - PRESENCE OF OTHER CARDIAC IMPLANTS AND GRAFTS (3) Syncope and collapse Assessment/Plan: physical therapy, safety maintained. Code(s): R55 - SYNCOPE AND COLLAPSE (4) Tardive dyskinesia Assessment/Plan: seen by neurology-Dr Lr Trial of Cogentin 0.5 mg twice daily. Increase the carbidopa to 3 times daily. c/w Physical therapy. fall precautions referred Code(s): G24.01 - DRUG INDUCED SUBACUTE DYSKINESIA (5) Diabetes Assessment/Plan: on novolog ss Code(s): E11.9 - TYPE 2 DIABETES MELLITUS WITHOUT COMPLICATIONS (6) Heart failure, chronic, with acute decompensation Code(s): I50.9 - HEART FAILURE, UNSPECIFIED Qualifiers: Heart failure type: diastolic Qualified Code(s): I50.33 - Acute on chronic diastolic (congestive) heart failure (7) Atrial fibrillation with rapid ventricular response Assessment/Plan: metoprolol increased by cardiology to 125mg daily. cannot use DOAC because of valvular AF: s/p mitral valve clip on lovenox 80 bid with a bridge to coumadin to achieve inr between 2-3 Code(s): I48.91 - UNSPECIFIED ATRIAL FIBRILLATION (8) FH: mitral valve repair Code(s): Z82.49 - FAMILY HX OF ISCHEM HEART DIS AND OTH DIS OF [facility] (9) HTN (hypertension) Code(s): I10 - ESSENTIAL (PRIMARY) HYPERTENSION Qualifiers: Hypertension type: unspecified Qualified Code(s): I10 - Essential (primary) hypertension (10) Prophylactic measure Assessment/Plan: Code(s): Z29.9 - ENCOUNTER FOR PROPHYLACTIC MEASURES, UNSPECIFIED (11) DVT prophylaxis Assessment/Plan: on eliquis Code(s): Z29.9 - ENCOUNTER FOR PROPHYLACTIC MEASURES, UNSPECIFIED This patient is new to me today: No Emergency Visit: Yes ED Registration Date: 12/20/19 Care time: The patient presented to the Emergency Department on the above date and was hospitalized for further evaluation of their emergent condition. Critical Care patient: No - Discharge Referral Referred to [facility] Med P.C.: No
--- NOTE | 2019-12-26 18:09 | PN ---
Progress Note, Physician History of Present Illness: events noted chart review no complaint Alert awake oriented Follows command - Current Medication List Current Medications: Active Medications Acetaminophen (Tylenol -) 650 mg PO Q6H PRN PRN Reason: PAIN LEVEL 4 - 6 Apixaban (Eliquis -) 5 mg PO BID [facility] Last Admin: 12/26/19 10:03 Dose: 5 mg Documented by: Atorvastatin Calcium (Lipitor -) 20 mg PO [facility] Last Admin: 12/25/19 21:29 Dose: 20 mg Documented by: Benztropine Mesylate (Cogentin -) 0.5 mg PO BID [facility] Last Admin: 12/26/19 10:03 Dose: 0.5 mg Documented by: Carbidopa/Levodopa (Sinemet 25/100 -) 1 each PO TID [facility] Last Admin: 12/26/19 13:45 Dose: 1 each Documented by: Docusate Sodium (Colace -) 100 mg PO BID [facility] Last Admin: 12/26/19 10:04 Dose: 100 mg Documented by: Insulin Aspart (Novolog Vial Sliding Scale -) 1 vial SQ [facility]; Protocol Last Admin: 12/26/19 16:13 Dose: Not Given Documented by: Lidocaine (Lidoderm Patch -) 2 patch TP DAILY [facility] Last Admin: 12/26/19 10:04 Dose: 2 patch Documented by: Metoprolol Succinate (Toprol Xl -) 125 mg PO DAILY [facility] Last Admin: 12/26/19 10:03 Dose: 125 mg Documented by: Miscellaneous (Lidoderm Patch Removal) 1 each MC DAILY@2200 [facility] Last Admin: 12/25/19 21:30 Dose: 1 each Documented by: Senna (Senna -) 2 tab PO [facility] Last Admin: 12/25/19 21:29 Dose: 2 tab Documented by: Valsartan (Diovan -) 40 mg PO DAILY [facility] Last Admin: 12/26/19 10:03 Dose: 40 mg Documented by: - Objective Vital Signs: Vital Signs Temperature 98.1 F 12/26/19 14:00 Pulse Rate 94 H 12/26/19 14:00 Respiratory Rate 18 12/26/19 10:00 Blood Pressure 138/82 12/26/19 14:00 O2 Sat by Pulse Oximetry (%) 97 12/26/19 09:00 Constitutional: Yes: Well Nourished Eyes: Yes: WNL HENT: Yes: WNL Neurological: Yes: Alert, Babinski positive, Cran Nerves II-XII Intact, Tremors ...Motor Strength: WNL Labs: CBC, BMP 12/26/19 09:12 12/26/19 09:12 INR, PTT INR 1.39 (0.83-1.09) H 12/25/19 06:20 Problem List - Problems (1) Parkinsonism Code(s): G20 - PARKINSON'S DISEASE (2) Tardive dyskinesia Code(s): G24.01 - DRUG INDUCED SUBACUTE DYSKINESIA Assessment/Plan fall precautions. 2. Increase the Sinemet to 3 times daily. Continue Cogentin the same. Physical therapy as an outpatient
[2019-12-26] MEDS: SENNOSIDES 8.6MG TABLET (FP) PO SCH (21:39)
[2019-12-26] MEDS: ATORVASTATIN CA 20 MG TABLET (FP) PO SCH (21:39)
[2019-12-26] MEDS: LIDOCAINE PATCH REMOVAL MC SCH (21:39)
[2019-12-26 22:54] VITALS: BP 119/63; PULSE 106; TEMP 98.2
== END 2019-12-26 11:58 | disposition home health service (06) | DRG 57 ==
LOC: SUPCPDRO 06:55 → JER 06:55 → JERBED 11:39 → J4W 16:00 → OBSVTOIN 17:34 → J4W 12-23 14:16
PROVIDERS: ATTEND Nurse Practitioner Family
DX: G20 Parkinson's disease (principal); I50.42 Chronic combined systolic (congestive) and diastolic (congestive) heart failure; E78.5 Hyperlipidemia, unspecified; I25.10 Atherosclerotic heart disease of native coronary artery without angina pectoris; I48.91 Unspecified atrial fibrillation; I25.2 Old myocardial infarction; E11.9 Type 2 diabetes mellitus without complications; M25.562 Pain in left knee; I11.0 Hypertensive heart disease with heart failure; G24.01 Drug induced subacute dyskinesia; F02.80 Dementia in other diseases classified elsewhere, unspecified severity, without behavioral disturbance, psychotic disturbance, mood disturbance, and anxiety; R07.89 Other chest pain; R55 Syncope and collapse; M25.561 Pain in right knee; E83.42 Hypomagnesemia; R26.81 Unsteadiness on feet; M47.27 Other spondylosis with radiculopathy, lumbosacral region; E66.9 Obesity, unspecified; Z68.30 Body mass index [BMI] 30.0-30.9, adult; R41.3 Other amnesia; G89.29 Other chronic pain; S80.02XA Contusion of left knee, initial encounter; S80.01XA Contusion of right knee, initial encounter; X58.XXXA Exposure to other specified factors, initial encounter; Z95.1 Presence of aortocoronary bypass graft; Z79.01 Long term (current) use of anticoagulants; Z95.2 Presence of prosthetic heart valve
CPT/HCPCS: 36415; 70450-TC; 71045-TC-FY; 71275-TC; 72131-TC; 73562-TC-LT-FY; 73562-TC-RT-FY; 74177-TC; 80053; 80061; 81003; 82085; 82140; 82550; 82607; 82962; 83036; 83605; 83721; 83735; 83880; 84100; 84484; 85025; 85610; 85651; 85730; 86593; 86850; 86900; 86901; 87040; 87086; 90670; 93005; 93010; 93306-TC; 93880-TC; 97116-GP; 97161-GP; 99285-25; G0008; G0009; G0378; J7030; Q2036; Q9967

== ENCOUNTER 2020-06-14 21:01 | Inpatient (IN) | payer OTHER ==
--- NOTE | 2020-06-14 21:25 | PDOC ---
Attending Attestation - Resident Resident Name: Guero Casillas - ED Attending Attestation I have performed the following: I have examined & evaluated the patient, The case was reviewed & discussed with the resident, I agree w/resident's findings & plan - HPI HPI: 06/14/20 23:20 see resident hpi - Physicial Exam PE: 06/14/20 23:20 see resident exam - Medical Decision Making 06/14/20 23:20 69-year-old female with approximately 40 minutes of right-sided facial droop Patient activated as a code naylor on arrival, CT scan and MRI/MRI of the brain were obtained There is an acute left insular infarct, nonhemorrhagic Patient is chronically on Eliquis for atrial fibrillation though has been noncompliant for several days Case discussed with neurology, will admit to medical service Discharge - Discharge Information Problems reviewed: Yes Clinical Impression/Diagnosis: Cerebrovascular accident (CVA), Atrial fibrillation Condition: Fair - Follow up/Referral - Patient Discharge Instructions - Post Discharge Activity
--- NOTE | 2020-06-14 21:50 | PDOC ---
History of Present Illness - General Chief Complaint: CVA/TIA Stated Complaint: POSSIBLY CVA Time Seen by Provider: 06/14/20 21:24 - History of Present Illness Initial Comments: 06/14/20 21:28 Nasima Lamb is a 69 y/o female with PMH significant for tardive dyskinesia, Parkinson's, a-fib (has not been on Eliquis for the past week because there was an issue with the refil) , CAD s/p CABG, cardiac arrest s/p ROSC, DM, HTN, HLD, CHF, STEMI w/ use of IABP, splenic infarct, MR s/p mitral-clip BIBA after family reported slurred speech and facial droop. At present, patient is oriented to person and place, but not time. She denies any pain. PCP per chart review: Dr. Poncho Amaro ([place]) ROS: unable to obtain PMH/PSH: as above Meds: benztropine, cardiodopa-levodopa, diltiazem, famotidine, levemir, lisinopril, metformin, metoprolol succinate Allergies Allergy/AdvReac Type Severity Reaction Status Date / Time No Known Allergies Allergy Verified 06/14/20 21:07 PE GENERAL: Awake, AAOx2 (person and place) in no acute distress HEAD: No signs of trauma, normocephalic, atraumatic EYES: PERRLA, EOMI, sclera anicteric, conjunctiva clear ENT: Auricles normal inspection, hearing grossly normal, nares patent, oropharynx clear without exudates. Moist mucosa NECK: Normal ROM, supple, no lymphadenopathy, JVD, or masses LUNGS: No distress, speaks full sentences, clear to auscultation bilaterally HEART: irregularly irregular, normal rate, normal S1 and S2, no murmurs, rubs or gallops, peripheral pulses normal and equal bilaterally. ABDOMEN: Soft, nontender, normoactive bowel sounds. No guarding, no rebound. No masses EXTREMITIES : Normal inspection, Normal range of motion, no edema. No clubbing or cyanosis. NEUROLOGICAL: Cranial nerves II through XII grossly intact. slurred speach, right lower facial paralysis. abnormal finger to nose. not able to do heel to guzmán. moving all extremities SKIN: Warm, Dry, normal turgor, no rashes or lesions noted Vital Signs Temp Pulse Resp BP Pulse Ox 98.8 F 101 H 22 H 129/89 95 06/14/20 21:04 06/14/20 21:04 06/14/20 21:04 06/14/20 21:04 06/14/20 21:04 MDM: Nasima Lamb is a 69 y/o female with extensive PMH presenting with acute slur red speech and facial droop. Vitals notable for tachycardia to 101 and RR 22. -CT head negative for ICH -Called neurologist Dr. Ryan who recommended MRI stroke protocol. If negative for bleed, restart Eliquis. Add statin. If starting Eliquis, do not give aspirin 325. -Labs -EKG 06/14/20 23:01 EKG: a-fib (possibly with competing junctional complex), rate 92, left axis deviation, normal QRS duration, QTC 492, left anterior fascicular block, no ischemic changes Labs: CT Head: negative for acute pathology or interval change MRI/MRA brain: MRI: Small acute left insular cortical infarct extending into the frontal dove radiata. Punctate chronic left posterior frontal cortical infarct. Mild periventricular chronic microvascular ischemic changes. MRA: The intrasylvian br anches of the middle cerebral arteries appear mildly asymmetric with a mild paucity of left-sided branches suggestive of occlusion which may in part be chronic. 06/15/20 00:16 Signed out to night team. Admission pending labs tPA Exclusion Checklist 0-3hr - Time Elapsed Date last known well: 06/14/20 Time last known well: 20:30 Elaspsed time: Day(s) and 16 Hour(s) and 37 Minutes - Thrombolytic Therapy Candidate Is the patient eligible for Thrombolytic Therapy?: No - Exclusion Criteria 0-3hr SBP greater than 185 or DBP greater than 110mmHg despite tx: No Recent IC/spinal surgery,head trauma or stroke w/in last 3mo: No Hx of previous IC hemorrhage, IC neoplasm, AVM or aneurysm: No Active internal bleeding: No Blding diathesis(low plt ct, inc PTT,INR>1.7 or use of NOAC): No Symptoms suggest subarachnoid hemorrhage: No CT demonstrates multilobar infarct(>1/3 cerebral hemiphere): No Arterial puncture at noncompressible site in previous 7 days: No Blood glucose concentration less than 50mg/dL (2.7mmol/L): No - Relative Exclusion Criteria 0-3h Care team unable to determine eligibility: No IV/IA thrombolysis/thrombectomy @ another hosp prior arrival: No Life expectancy <1yr/severe co-morbid illness/[employer]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: No : No Patient/family refused: No Stroke severity too mild (non-disabling): Yes Recent acute IN (w/in previous 3 months): No Seizure at onset with postictal residual neuro impairments: No Major surgery or serious trauma w/in previous 14 days: No Recent GI or hemorrhage (w/in previous 21 days): No - Ineligibility reason(s) Reasons No tPA given: See reason(s) noted above NIH Stroke Scale - Last Known Well Date/Time & Onset Date Last Known Well: 06/14/20 Time Last Known Well: 20:30 - Initial Evaluation Level of consciousness: Alert Ask patient the month and their age: Answers one correctly Ask patient to open & close eyes; make fist and let go: Obeys both correctly Best gaze (horizontal eye movement): Normal Visual field testing: No visual field loss Facial paresis (Show teeth/raise eyebrows/close eyes tight): Partial paralysis (total or near paralysis of lower face) Motor Function: Left Arm: Normal Motor Function: Right Arm: Drift Motor Function: Left Leg: Some effort against gravity Motor Function: Right Leg: Some effort against gravity Limb Ataxia: Present in two limbs Sensory(Use pinprick test arms,legs,trunk,face/side to side): Normal Best language (Describe picture, name items, read sentences): No Aphasia Dysarthria (read several words): Mild to moderate slurring of words Extinction and Inattention: No abnormality - Total Score NIH Stroke Scale Score: 11 Past History - Medical History Allergies/Adverse Reactions: Allergies Allergy/AdvReac Type Severity Reaction Status Date / Time No Known Allergies Allergy Verified 06/14/20 21:07 Home Medications: Ambulatory Orders Atorvastatin Ca [Lipitor] 20 mg PO HS #30 tablet 12/26/19 Benztropine Mesylate [Cogentin -] 0.5 mg PO BID #60 tablet 12/26/19 Carbidopa/Levodopa 25/100 [Sinemet 25/100 -] 1 each PO TID #120 tablet 12/26/19 Diltiazem Cd [Cardizem Cd -] 180 mg PO DAILY #30 cap.cd.24h 01/14/20 Famotidine [Acid Cigar Binder] 10 mg PO DAILY #30 tablet 01/14/20 Insulin (Levemir) [Levemir Vial] 5 units SQ AM #15 vial 01/14/20 Lisinopril [Prinivil] 2.5 mg PO DAILY #30 tablet 01/14/20 metFORMIN HCL [Metformin HCl ER] 500 mg PO DAILY #30 tab.er.24h 01/14/20 Tiotropium [place] [Spiriva] 2 puff IH DAILY 03/11/20 Apixaban [Eliquis -] 2.5 mg PO BID #60 tablet 03/12/20 Metoprolol Succinate [Toprol XL -] 25 mg PO DAILY #30 tab.sr.24h 03/12/20 Metoprolol Succinate [Toprol XL -] 100 mg PO DAILY #30 tab.sr.24h 03/12/20 Cephalexin Monohydrate [Keflex -] 500 mg PO Q6H #28 capsule 03/13/20 Furosemide [Lasix -] 10 mg PO DAILY 06/14/20 Anemia: No Asthma: No Cancer: No Cardiac Disorders: Yes (a fib, recent cardiac cath, MV disease) CVA: No COPD: No CHF: Yes Dementia: Yes Diabetes: Yes GI Disorders: No Disorders: No HTN: Yes Hypercholesterolemia: Yes Liver Disease: No Seizures: No Thyroid Disease: No - Surgical History Abdominal Surgery: No Appendectomy: No Cardiac Surgery: Yes (mitral valve clipping.) Cholecystectomy: No Lung Surgery: No Neurologic Surgery: No Orthopedic Surgery: No - Immunization History Immunization Up to Date: Yes - Psycho-Social/Smoking History Smoking History: Unknown if ever smoked Have you smoked in the past 12 months: No *Physical Exam - Vital Signs Last Vital Signs Temp Pulse Resp BP Pulse Ox 98.8 F 101 H 22 H 129/89 95 06/14/20 21:04 06/14/20 21:04 06/14/20 21:04 06/14/20 21:04 06/14/20 21:04 ED Treatment Course - LABORATORY CBC & Chemistry Diagram: 06/15/20 06:25 06/15/20 06:25 Discharge - Discharge Information Problems reviewed: Yes Clinical Impression/Diagnosis: Cerebrovascular accident (CVA), Atrial fibrillation Condition: Fair - Follow up/Referral - Patient Discharge Instructions - Post Discharge Activity
[2020-06-14] MEDS ORDERED: ATORVASTATIN CA 80 MG TABLET (FP) PO ONE (23:14)
[2020-06-14 23:29] LABS: BASO % 1.2 % (0-2.0); EOS % 1.5 % (0-4.5); HEMATOCRIT 39.9 % (32.4-45.2); LYMPH % 26.2 % (8-40); MCH 27.2 pg (25.7-33.7); MCHC 32.5 g/dl (32.0-36.0); MEAN CELL VOLUME 83.6 fl (80-96); MONO % 5.8 % (3.8-10.2); NEUT % 65.3 % (42.8-82.8); PLATELET COUNT 335 K/MM3 (134-434); RBC 4.77 M/mm3 (3.60-5.2); RDW 16.9 % (11.6-15.6); WHITE BLOOD COUNT 8.4 K/mm3 (4.0-10.0)
[2020-06-14] MEDS ORDERED: ATORVASTATIN CA 40 MG TABLET (FP) ONE (23:31)
[2020-06-14 23:36] LABS: INR 1.11 (0.83-1.09); PROTHROMBIN TIME (PATIENT) 13.1 SEC (9.7-13.0)
[2020-06-14 23:39] LABS: ACTIVATED PTT 34.4 SECONDS (25.2-36.5)
[2020-06-15 00:02] LABS: CHOLESTEROL 224 mg/dL (50-200); HDL CHOLESTEROL 45 mg/dL (40-60); LDL CHOLESTEROL (ONLY SJRH) 143 mg/dL (5-100); TRIGLYCERIDES 200 mg/dL (0-150)
[2020-06-15 00:07] LABS: ALBUMIN 3.5 g/dl (3.4-5.0); BILIRUBIN,TOTAL 0.6 mg/dL (0.2-1); BLOOD UREA NITROGEN 20.5 mg/dL (7-18); CALCIUM 9.3 mg/dL (8.5-10.1); CREATININE 0.9 mg/dL (0.55-1.3); POTASSIUM 4.5 mmol/L (3.5-5.1); TOT PROT 8.8 g/dl (6.4-8.2)
[2020-06-15] MEDS ORDERED: APIXABAN 2.5 MG TABLET PO SCH (00:15)
[2020-06-15] MEDS ORDERED: APIXABAN 2.5 MG TABLET ONE (00:21)
--- NOTE | 2020-06-15 02:56 | PDOC ---
*Physical Exam - Vital Signs Last Vital Signs Temp Pulse Resp BP Pulse Ox 98.8 F 108 H 18 127/70 95 06/14/20 21:04 06/14/20 23:21 06/14/20 23:21 06/14/20 23:21 06/14/20 23:21 ED Treatment Course - LABORATORY CBC & Chemistry Diagram: 06/16/20 06:42 06/16/20 06:42 - Medications Given in the ED: ED Medications Discontinued Medications Generic Name Dose Route Start Last Admin Trade Name Everardo PRN Reason Stop Dose Admin Apixaban 2.5 mg 06/15/20 00:15 06/15/20 00:25 Eliquis - PO 2.5 mg BID JESSICA Administration Atorvastatin Calcium 80 mg 06/14/20 23:14 06/14/20 23:36 Lipitor - PO 06/14/20 23:15 80 mg ONCE ONE Administration Medical Decision Making - Medical Decision Making 06/15/20 00:16 Pt signed out by Dr. Casillas 69 y/o female with extensive PMH presenting with acute slurred speech and facial droop. Vitals notable for tachycardia to [address] Head: negative for acute pathology or interval change MRI/MRA brain: MRI: Small acute left insular cortical infarct extending into the frontal dove radiata. Punctate chronic left posterior frontal cortical infarct. Mild periventricular chronic microvascular ischemic changes. MRA: The intrasylvian branches of the middle cerebral arteries appear mildly asymmetric with a mild paucity of left-sided branches suggestive of occlusion which may in part be chronic. 06/15/20 01:30 Trop 0.59 Pt signed out to admitting team, who accepted care of patient. Disposition Admit 06/15/20 02:50 Sent message to admitting team regarding eliquis - hold eliquis for next 24 hr, re-consult neuro tomorrow. Message acknowledged by Dr. Rosina Bolton. Discharge - Discharge Information Problems reviewed: Yes Clinical Impression/Diagnosis: Cerebrovascular accident (CVA) Qualifiers: CVA mechanism: unspecified Qualified Code(s): I63.9 - Cerebral infarction, unspecified Atrial fibrillation Qualifiers: Atrial fibrillation type: unspecified Qualified Code(s): I48.91 - Unspecified atrial fibrillation Condition: Stable - Admission Yes - Follow up/Referral - Patient Discharge Instructions - Post Discharge Activity
--- NOTE | 2020-06-15 06:37 | PN ---
Teaching Attending Note ATTENDING PHYSICIAN STATEMENT I saw and evaluated the patient. I reviewed the resident's note and discussed the case with the resident. I agree with the resident's findings and plan as documented. SUBJECTIVE: 69 years old female with PMH significant for tardive dyskinesia, Parkinson's, a-fib, CAD s/p CABG, cardiac arrest s/p ROSC, DM, HTN, HLD, CHF, STEMI w/ use of IABP, splenic infarct, MR s/p mitral-clip BIBA with slurred speech and R facial droop. patient is not able to provide any history due to currant medical condition. She denies chest pain, SOb, nausea, vomiting, fever. She was not on Eliquis for past week due to refill issue. OBJECTIVE: Last Vital Signs Temp Pulse Resp BP Pulse Ox 98.8 F 97 H 18 118/78 95 06/14/20 21:04 06/15/20 02:59 06/15/20 02:59 06/15/20 02:59 06/15/20 02:59 GENERAL: Obese, NAD HEAD: No signs of trauma, normocephalic, atraumatic EYES: PERRLA, EOMI, sclera anicteric, conjunctiva clear ENT: Auricles normal inspection, hearing grossly normal, nares patent, oropharynx clear without exudates. Moist mucosa NECK: Normal ROM, supple, no lymphadenopathy, JVD, or masses LUNGS: No distress, speaks full sentences, clear to auscultation bilaterally HEART: irregularly irregular, normal rate, normal S1 and S2, ABDOMEN: Soft, nontender, normoactive bowel sounds. No guarding, no rebound. No masses EXTREMITIES : Normal inspection, Normal range of motion, no edema. No clubbing or cyanosis. NEUROLOGICAL:awake, alert, slurred speech, A&o x2 ( person and place), right facial droop. generalized all extremities weakness able to lift up against gravity. SKIN: Warm, Dry, normal turgor, no rashes or lesions noted ASSESSMENT AND PLAN Acute CVA PMH as above Admit to tele neuro checks MRA didnt show any major occlusion Stroke work up- ECHO, carotiD doppler ASA Hold eliquis for now as per neurology Permissive HTN HBA1c, lipid panel trend troponins DVt ppx DERMATOLOGIST AND DERMATOPATHOLOGIST PT/rehab
[2020-06-15 07:13] LABS: BASO % 0.7 % (0-2.0); EOS % 0.9 % (0-4.5); HEMATOCRIT 38.5 % (32.4-45.2); HEMOGLOBIN 12.2 GM/dL (10.7-15.3); LYMPH % 36.1 % (8-40); MCH 26.6 pg (25.7-33.7); MCHC 31.7 g/dl (32.0-36.0); MEAN CELL VOLUME 84.1 fl (80-96); MEAN PLT VOLUME 9.7 fl (7.5-11.1); MONO % 8.2 % (3.8-10.2); NEUT % 54.1 % (42.8-82.8); PLATELET COUNT 259 K/MM3 (134-434); RBC 4.58 M/mm3 (3.60-5.2); RDW 16.8 % (11.6-15.6); WHITE BLOOD COUNT 9.5 K/mm3 (4.0-10.0)
[2020-06-15 07:27] LABS: ALBUMIN 2.9 g/dl (3.4-5.0); BILIRUBIN,TOTAL 0.5 mg/dL (0.2-1); BLOOD UREA NITROGEN 17.7 mg/dL (7-18); CALCIUM 8.7 mg/dL (8.5-10.1); CREATININE 0.8 mg/dL (0.55-1.3); MAGNESIUM 1.7 mg/dL (1.8-2.4); PHOSPHOROUS 3.8 mg/dL (2.5-4.9); POTASSIUM 4.8 mmol/L (3.5-5.1); TOT PROT 7.7 g/dl (6.4-8.2)
[2020-06-15] MEDS ORDERED: SODIUM CHLORIDE 1,000 ML IV SCH (07:30)
--- NOTE | 2020-06-15 07:47 | HP ---
CHIEF COMPLAINT: R facial droop PCP: Dr. Poncho Amaro HISTORY OF PRESENT ILLNESS: 69yo female w/ PMH of tardive dyskinesia, Parkinsons disease, afib (has not taken eliquis for past week due to refill issue), CAD s/p CABG, cardiac arrest s/p ROSC, DM, HTN, HLD, CHF, STEMI w/ use of IABP, splenic infarct, Mitral regurgitation s/p mitral-clip brought to ED by family after they noticed slurred speech and facial droop. Pt currently AOx2 (not time) and endorses pain in her knees bilaterally. ER course was notable for: (1) physical exam: irregularly irregular, tachycardic, tachypneic with accessory muscles use, extensive neurological limitations (2) NIHSS 16 (3) head CT: no acute intracranial pathology (4) brain MRI: small acute left insular cortical infarct extending into the frontal dove radiata. Punctate chronic left posterior frontal cortical infarct. Mild periventricular chronic microvascular ischemic changes. (5) brain MRA: the intrasylvian branches of the middle cerebral arteries appear mildly asymmetric with mild paucity of left sided branches suggestive of occlusion which may in part be chronic. (6) EKG: afib, rate 92, left axis deviation, qtc 492 prolonged, left anterior fascicular block, no ischemic changes (7) TPA not given (stroke severity too mild - exclusion criteria) (8) Consulted Dr. Ryan who recommended MRI stroke protocol. If MRI negative for bleed then restart eliquis, add statin. If starting eliquis then do not give aspirin 325 (9) initial troponin 0.59, repeat trop 0.48 Recent Travel: none PAST MEDICAL HISTORY: per above PAST SURGICAL HISTORY: unable to assess Family History: unable to assess Social History: Smoking: denied Alcohol: denied Drugs: did not assess Allergies No Known Allergies Allergy (Verified 06/14/20 21:07) HOME MEDICATIONS: Home Medications Medication Instructions Recorded Atorvastatin Ca [Lipitor] 20 mg PO HS #30 tablet 12/26/19 Benztropine Mesylate [Cogentin -] 0.5 mg PO BID #60 tablet 12/26/19 Carbidopa/Levodopa 25/100 [Sinemet 1 each PO TID #120 tablet 12/26/19 25/100 -] Diltiazem Cd [Cardizem Cd -] 180 mg PO DAILY #30 cap.cd.24h 01/14/20 Famotidine [Acid News Videographer] 10 mg PO DAILY #30 tablet 01/14/20 Insulin (Levemir) [Levemir Vial] 5 units SQ AM #15 vial 01/14/20 Lisinopril [Prinivil] 2.5 mg PO DAILY #30 tablet 01/14/20 metFORMIN HCL [Metformin HCl ER] 500 mg PO DAILY #30 tab.er.24h 01/14/20 Tiotropium [place] [Spiriva] 2 puff IH DAILY 03/11/20 Apixaban [Eliquis -] 2.5 mg PO BID #60 tablet 03/12/20 Metoprolol Succinate [Toprol XL -] 25 mg PO DAILY #30 tab.sr.24h 03/12/20 Metoprolol Succinate [Toprol XL -] 100 mg PO DAILY #30 tab.sr.24h 03/12/20 Cephalexin Monohydrate [Keflex -] 500 mg PO Q6H #28 capsule 03/13/20 Furosemide [Lasix -] 10 mg PO DAILY 06/14/20 REVIEW OF SYSTEMS per above PHYSICAL EXAMINATION Vital Signs - 24 hr 06/14/20 06/14/20 06/15/20 21:04 23:21 02:59 Temperature 98.8 F Pulse Rate 101 H Pulse Rate [ 108 H 97 H Apical] Respiratory 22 H 18 18 Rate Blood Pressure 129/89 Blood Pressure 127/70 118/78 [Left Arm] O2 Sat by Pulse 95 95 95 Oximetry (%) 06/15/20 06:32 Temperature 97.4 F L Pulse Rate Pulse Rate [ 104 H Apical] Respiratory 19 Rate Blood Pressure Blood Pressure 109/73 [Left Arm] O2 Sat by Pulse 98 Oximetry (%) GENERAL: F, snoring while awake, severely disabled but AAO, asking for water, in no acute distress HEAD: Normal with no signs of trauma, temporal wasting EYES: PERRL, extraocular movements intact but difficulties following instructions, no lid lag LUNGS: CTAB on anterior chest, no wheezing appreciated HEART: irregularly irregular, heart sounds appreciated without murmurs ABDOMEN: distended and very soft, nontender, clean folds, hypoactive bowel sounds, scattered hyperpigmented macules MUSCULOSKELETAL: Normal range of motion at all joints. No bony deformities or tenderness. No CVA tenderness. EXTREMITIES: radial pulses palpable, UEs ataxic with weakness and drift but able to hold up without touching bed, LE unable to move, knees tender to palpation bilaterally warm to touch, no peripheral edema appreciated NEUROLOGICAL: limited assessment due to physical disabilities. Lifts eyebrows symmetrically but very weak, asymmetric smile with R side droop, sensation equally intact bilaterally, no visual field deficits, no nystagmus appreciated but moves eyes slowly, unable to clearly articulate words but able to communicate with fragmented speech PSYCHIATRIC: Cooperative. Good eye contact. Patient demonstrates strong effort to communicate despite her disabilities SKIN: Warm to touch, scattered hyperpigmented macules on abdomen, no other rashes or lesions noted Laboratory Results - last 24 hr 06/14/20 06/14/20 06/14/20 23:15 23:15 23:15 WBC 8.4 RBC 4.77 Hgb 13.0 Hct 39.9 MCV 83.6 MCH 27.2 MCHC 32.5 RDW 16.9 H Plt Count 335 MPV 9.0 Absolute Neuts (auto) 5.5 Neutrophils % 65.3 D Lymphocytes % 26.2 D Monocytes % 5.8 Eosinophils % 1.5 Basophils % 1.2 Nucleated RBC % 0 PT with INR 13.10 H INR 1.11 H PTT (Actin FS) 34.4 Sodium Potassium Chloride Carbon Dioxide Anion Gap BUN Creatinine Est GFR (CKD-EPI)AfAm Est GFR (CKD-EPI)NonAf Random Glucose Calcium Phosphorus Magnesium Total Bilirubin AST ALT Alkaline Phosphatase Creatine Kinase Troponin I Total Protein Albumin Triglycerides 200 H Cholesterol 224 H Total LDL Cholesterol 143 H HDL Cholesterol 45 Blood Type Antibody Screen 06/14/20 06/14/20 06/15/20 23:15 23:15 02:30 WBC RBC Hgb Hct MCV MCH MCHC RDW Plt Count MPV Absolute Neuts (auto) Neutrophils % Lymphocytes % Monocytes % Eosinophils % Basophils % Nucleated RBC % PT with INR INR PTT (Actin FS) Sodium 139 Potassium 4.5 Chloride 102 Carbon Dioxide 25 Anion Gap 12 BUN 20.5 H Creatinine 0.9 Est GFR (CKD-EPI)AfAm 75.61 Est GFR (CKD-EPI)NonAf 65.24 Random Glucose 161 H Calcium 9.3 Phosphorus Magnesium Total Bilirubin 0.6 AST 22 ALT 22 Alkaline Phosphatase 87 Creatine Kinase 60 Troponin I 0.59 H 0.48 H Total Protein 8.8 H Albumin 3.5 Triglycerides Cholesterol Total LDL Cholesterol HDL Cholesterol Blood Type AB NEGATIVE Antibody Screen Negative 06/15/20 06/15/20 06:25 06:25 WBC 9.5 RBC 4.58 Hgb 12.2 Hct 38.5 MCV 84.1 MCH 26.6 MCHC 31.7 L RDW 16.8 H Plt Count 259 D MPV 9.7 Absolute Neuts (auto) 5.1 Neutrophils % 54.1 Lymphocytes % 36.1 D Monocytes % 8.2 Eosinophils % 0.9 Basophils % 0.7 Nucleated RBC % 0 PT with INR INR PTT (Actin FS) Sodium 139 Potassium 4.8 Chloride 107 Carbon Dioxide 24 Anion Gap 9 BUN 17.7 Creatinine 0.8 Est GFR (CKD-EPI)AfAm 87.18 Est GFR (CKD-EPI)NonAf 75.22 Random Glucose 129 H Calcium 8.7 Phosphorus 3.8 Magnesium 1.7 L Total Bilirubin 0.5 AST 18 ALT 18 Alkaline Phosphatase 76 Creatine Kinase Troponin I Total Protein 7.7 Albumin 2.9 L Triglycerides Cholesterol Total LDL Cholesterol HDL Cholesterol Blood Type Antibody Screen ASSESSMENT/PLAN: 69yo female w/ PMH of tardive dyskinesia, Parkinsons disease, afib (has not taken eliquis for past week due to refill issue), CAD s/p CABG, cardiac arrest s/p ROSC, DM, HTN, HLD, CHF, STEMI w/ use of IABP, splenic infarct, Mitral regurgitation s/p mitral-clip brought to ED by family after they noticed slurred speech and facial droop. Patient admitted for CVA in setting of atrial fibrillation. #CVA - secondary to afib embolis? - ordered echo, carotid doppler, CXR - ordered UA - started ASA 81 - restarted home Statin - ordered A1C, lipid panel, repeat trop - neuro checks #permissive hypertension - restarted home metoprolol 100 and furosemide 10 - holding home cardizem and lisinopril #other medical problems - restarted home meds - re-evaluate meds with pharmacy in am - holding eliquis for 24h per neuro - did not restart cephalexin #PPX - DVT: SCDs - GI: famotidine #FEN - 60cc/h NS - NPO - awaiting speech and swallow consult recs - replete lytes PRN #Dispo: continue monitoring in telemetry Family Medical History Family History: As Documented Visit type - Medication Review Med list reviewed for High Risk Meds patients 65 and older: Yes - Emergency Visit Emergency Visit: Yes ED Registration Date: 06/14/20 Care time: The patient presented to the Emergency Department on the above date and was hospitalized for further evaluation of their emergent condition. - New Patient This patient is new to me today: Yes Date on this admission: 06/15/20 - Critical Care Critical Care patient: No ATTENDING PHYSICIAN STATEMENT I saw and evaluated the patient. I reviewed the resident's note and discussed the case with the resident. I agree with the resident's findings and plan as documented. SUBJECTIVE: OBJECTIVE: ASSESSMENT AND PLAN:
--- NOTE | 2020-06-15 08:42 | CONSULT ---
Consult - text type - Consultation Consultation Note: Neurology CHIEF COMPLAINT: R facial droop PCP: Dr. Poncho Amaro ([place]) HISTORY OF PRESENT ILLNESS: 69yo female w/ PMH of tardive dyskinesia, Parkinsons disease, afib (has not taken eliquis for past week due to refill issue), CAD s/p CABG, cardiac arrest s/p ROSC, DM, HTN, HLD, CHF, STEMI w/ use of IABP, splenic infarct, Mitral regurgitation s/p mitral-clip brought to ED by family after they noticed slurred speech and facial droop. Pt currently AOx2 (not time) and endorses pain in her knees bilaterally. head CT performed and showed no acute intracranial pathology, generalized cerebral atrophy with no interval change since prior CT exam of 12/20/2019. Brain MRI completed and demonstrated small acute left insular cortical infarct extending into the frontal dove radiata. Punctate chronic left posterior frontal cortical infarct. Mild periventricular chronic microvascular ischemic changes. Also brain MRA done and showed the intrasylvian branches of the middle cerebral arteries appear mildly asymmetric with mild paucity of left sided branches suggestive of occlusion which may in part be chronic. CVA may be secondary to Eliquis noncompliance. Patient seen in the emergency department and reduced mental status, oxygen desaturation reduced to 92%. Considering that she does have acute infarct, would recommend holding eliquis now for 24 hours to avoid hemorrhagic conversion, however thereafter she ccan be restarted on Eliquis or other anticoagulation as determined by restaurant culinary manager. Discussed with nurse in the emergency department. Patient does continue to have speech difficulty and would benefit from speech and swallow Past History - Medical History Anemia: No Asthma: No Cancer: No Cardiac Disorders: Yes (a fib, recent cardiac cath, MV disease) CVA: No COPD: No CHF: Yes Dementia: Yes Diabetes: Yes GI Disorders: No Disorders: No HTN: Yes Hypercholesterolemia: Yes Liver Disease: No Seizures: No Thyroid Disease: No Family: HTN - Surgical History Abdominal Surgery: No Appendectomy: No Cardiac Surgery: Yes (mitral valve clipping.) Cholecystectomy: No Lung Surgery: No Neurologic Surgery: No Orthopedic Surgery: No - Immunization History Immunization Up to Date: Yes - Psycho-Social/Smoking History Smoking History: Unknown if ever smoked Have you smoked in the past 12 months: No REVIEW OF SYSTEMS CONSTITUTIONAL: Absent: fever, chills, diaphoresis, generalized weakness, malaise, loss of appetite, weight change HEENT: Absent: rhinorrhea, nasal congestion, throat pain, throat swelling, difficulty swallowing, mouth swelling, ear pain, eye pain, visual changes CARDIOVASCULAR: Absent: chest pain, syncope, palpitations, irregular heart rate, lightheadedness, peripheral edema RESPIRATORY: Absent: cough, shortness of breath, dyspnea with exertion, orthopnea, wheezing, stridor, hemoptysis GASTROINTESTINAL: Absent: abdominal pain, abdominal distension, nausea, vomiting, diarrhea, constipation, melena, hematochezia GENITOURINARY: Absent: dysuria, frequency, urgency, hesitancy, hematuria, flank pain, genital pain MUSCULOSKELETAL: Absent: myalgia, arthralgia, joint swelling, back pain, neck pain SKIN: Absent: rash, itching, pallor HEMATOLOGIC/IMMUNOLOGIC: Absent: easy bleeding, easy bruising, lymphadenopathy, frequent infections ENDOCRINE: Absent: unexplained weight gain, unexplained weight loss, heat intolerance, cold intolerance NEUROLOGIC: Absent: headache, focal weakness or paresthesias, dizziness, unsteady gait, seizure, mental status changes, bladder or bowel incontinence PSYCHIATRIC: Absent: anxiety, depression, suicidal or homicidal ideation, hallucinations. Allergies No Known Allergies Allergy (Verified 06/14/20 21:07) HOME MEDICATIONS: Home Medications Medication Instructions Recorded Atorvastatin Ca [Lipitor] 20 mg PO HS #30 tablet 12/26/19 Benztropine Mesylate [Cogentin -] 0.5 mg PO BID #60 tablet 12/26/19 Carbidopa/Levodopa [Sinemet 1 each PO TID #120 tablet 12/26/19 -] Diltiazem Cd [Cardizem Cd -] 180 mg PO DAILY #30 cap.cd.24h 01/14/20 Famotidine [Acid Taxation Accountant] 10 mg PO DAILY #30 tablet 01/14/20 Insulin (Levemir) [Levemir Vial] 5 units SQ AM #15 vial 01/14/20 Lisinopril [Prinivil] 2.5 mg PO DAILY #30 tablet 01/14/20 metFORMIN HCL [Metformin HCl ER] 500 mg PO DAILY #30 tab.er.24h 01/14/20 Tiotropium [place] [Spiriva] 2 puff IH DAILY 03/11/20 Apixaban [Eliquis -] 2.5 mg PO BID #60 tablet 03/12/20 Metoprolol Succinate [Toprol XL -] 25 mg PO DAILY #30 tab.sr.24h 03/12/20 Metoprolol Succinate [Toprol XL -] 100 mg PO DAILY #30 tab.sr.24h 03/12/20 Cephalexin Monohydrate [Keflex -] 500 mg PO Q6H #28 capsule 03/13/20 Furosemide [Lasix -] 10 mg PO DAILY 06/14/20 Active Medications Aspirin (Asa -) 81 mg PO DAILY [facility] Atorvastatin Calcium (Lipitor -) 20 mg PO HS [facility] Benztropine Mesylate (Cogentin -) 0.5 mg PO BID [facility] Carbidopa/Levodopa (Sinemet 25/100 -) 1 each PO TID JESSICA Famotidine (Acid Taxation Accountant) 10 mg PO DAILY JESSICA Furosemide (Lasix -) 10 mg PO DAILY [facility] Sodium Chloride (Normal Saline -) 1,000 mls @ 60 mls/hr IV ASDIR JESSICA Stop: 06/16/20 00:09 Insulin Aspart (Novolog Vial Sliding Scale -) 1 vial SQ ACHS [facility]; Protocol Insulin Detemir (Levemir Vial) 5 units SQ AM JESSICA Metoprolol Succinate (Toprol Xl -) 100 mg PO DAILY [facility] Tiotropium [place] (Spiriva Respimat) 2 puff IH DAILY [facility] PHYSICAL EXAMINATION Vital Signs Period Temp Pulse Resp BP Sys/Castillo Pulse Ox Last 24 Hr 97.4 F-98.8 F 97-108 18-22 109-129/70-89 95-98 GENERAL: Awake, alert, and fully oriented, in no acute distress. HEAD: Normal with no signs of trauma. EYES: Pupils equal, round and reactive to light, extraocular movements intact, sclera anicteric, conjunctiva clear. No lid lag. EARS, NOSE, THROAT: Ears normal, nares patent, oropharynx clear without exudates. Moist mucous membranes. NECK: Normal range of motion, supple without lymphadenopathy, JVD, or masses. LUNGS: Breath sounds equal, clear to auscultation bilaterally. No wheezes, and no crackles. No accessory muscle use. HEART: Regular rate and rhythm, normal S1 and S2 without murmur, rub or gallop. ABDOMEN: Soft, nontender, not distended, normoactive bowel sounds, no guarding, no rebound, no masses. No hepatomegaly or splenomegaly. MUSCULOSKELETAL: Normal range of motion at all joints. No bony deformities or tenderness. No CVA tenderness. UPPER EXTREMITIES: 2+ pulses, warm, well-perfused. No cyanosis. No clubbing. No peripheral edema. LOWER EXTREMITIES: 2+ pulses, warm, well-perfused. No calf tenderness. No peripheral edema. NEUROLOGICAL: Speech difficulty, slurring, some aphasia, moves extremities grossly but not participating confrontation testing, sensory intact, gait deferred PSYCHIATRIC: Cooperative. Good eye contact. Appropriate mood and affect. SKIN: Warm, dry, normal turgor, no rashes or lesions noted, normal capillary refill. CBCD WBC 9.5 K/mm3 (4.0-10.0) 06/15/20 06:25 RBC 4.58 M/mm3 (3.60-5.2) 06/15/20 06:25 Hgb 12.2 GM/dL (10.7-15.3) 06/15/20 06:25 Hct 38.5 % (32.4-45.2) 06/15/20 06:25 MCV 84.1 fl (80-96) 06/15/20 06:25 MCHC 31.7 g/dl (32.0-36.0) L 06/15/20 06:25 RDW 16.8 % (11.6-15.6) H 06/15/20 06:25 Plt Count 259 K/MM3 (134-434) D 06/15/20 06:25 MPV 9.7 fl (7.5-11.1) 06/15/20 06:25 CMP Sodium 139 mmol/L (136-145) 06/15/20 06:25 Potassium 4.8 mmol/L (3.5-5.1) 06/15/20 06:25 Chloride 107 mmol/L (98-107) 06/15/20 06:25 Carbon Dioxide 24 mmol/L (21-32) 06/15/20 06:25 Anion Gap 9 MMOL/L (8-16) 06/15/20 06:25 BUN 17.7 mg/dL (7-18) 06/15/20 06:25 Creatinine 0.8 mg/dL (0.55-1.3) 06/15/20 06:25 Random Glucose 129 mg/dL (74-106) H 06/15/20 06:25 Calcium 8.7 mg/dL (8.5-10.1) 06/15/20 06:25 Total Bilirubin 0.5 mg/dL (0.2-1) 06/15/20 06:25 AST 18 U/L (15-37) 06/15/20 06:25 ALT 18 U/L (13-61) 06/15/20 06:25 Alkaline Phosphatase 76 U/L (45-117) 06/15/20 06:25 Total Protein 7.7 g/dl (6.4-8.2) 06/15/20 06:25 Albumin 2.9 g/dl (3.4-5.0) L 06/15/20 06:25 CARDIAC ENZYMES Creatine Kinase 60 U/L (26-192) 06/14/20 23:15 Troponin I 0.37 ng/ml (0.00-0.05) H 06/15/20 06:25 ASSESSMENT/PLAN: 69yo female w/ PMH of tardive dyskinesia, Parkinsons disease, afib (has not taken eliquis for past week due to refill issue), CAD s/p CABG, cardiac arrest s/p ROSC, DM, HTN, HLD, CHF, STEMI w/ use of IABP, splenic infarct, Mitral regurgitation s/p mitral-clip brought to ED by family after they noticed slurred speech and facial droop. Pt currently AOx2 (not time) and endorses pain in her knees bilaterally. head CT performed and showed no acute intracranial pathology, generalized cerebral atrophy with no interval change since prior CT exam of 12/20/2019. Brain MRI completed and demonstrated small acute left insular cortical infarct extending into the frontal dove radiata. Punctate chronic left posterior frontal cortical infarct. Mild periventricular chronic microvascular ischemic changes. Also brain MRA done and showed the intrasylvian branches of the middle cerebral arteries appear mildly asymmetric with mild paucity of left sided branches suggestive of occlusion which may in part be chronic. CVA may be secondary to Eliquis noncompliance. Patient seen in the emergency department and reduced mental status, oxygen desaturation reduced to 92%. Considering that she does have acute infarct, would recommend holding eliquis now for 24 hours to avoid hemorrhagic conversion, however thereafter she ccan be restarted on Eliquis or other anticoagulation as determined by restaurant culinary manager. Discussed with nurse in the emergency department. Patient does continue to have speech difficulty and would benefit from speech and swallow. LDL 126, will increase statin to 40mg, goal LDL <70 in CVA. Carotid doppler, echo, CVA workup recommended. physical therapy as tolerated. Continue Sinemet and Cogentin for Parkinson's disease. monitor blood pressure, maintain < 160/100 for now, less than 140/90 in 24hrs. Monitor diabetes, continue metformin..
[2020-06-15] MEDS ORDERED: FUROSEMIDE 20 MG TABLET (FP) PO SCH (10:00)
[2020-06-15] MEDS ORDERED: TIOTROPIUM BROMIDE IH SCH (10:00)
--- NOTE | 2020-06-15 10:16 | EKG ---
Test Reason : Blood Pressure : / mmHG Vent. Rate : 092 BPM Atrial Rate : 202 BPM P-R Int : 000 ms QRS Dur : 074 ms QT Int : 398 ms P-R-T Axes : 000 -68 -17 degrees QTc Int : 492 ms ATRIAL FIBRILLATION WITH A COMPETING JUNCTIONAL PACEMAKER LEFT ANTERIOR FASCICULAR BLOCK POSSIBLE ANTEROLATERAL INFARCT , AGE UNDETERMINED ABNORMAL ECG WHEN COMPARED WITH ECG OF 09-MAR-2020 10:37, NONSPECIFIC T WAVE ABNORMALITY HAS REPLACED INVERTED T WAVES IN LATERAL LEADS Confirmed by MD Lee, Vic ([id number]) on 06/15/2020 10:16:44 AM Referred By: Confirmed By:Vic Howard MD
--- NOTE | 2020-06-15 10:28 | CONSULT ---
Admitting History and Physical - Primary Care Physician PCP: Memo Mendez - Admission History of Present Illness: Per EMR- 69yo female w/ PMH of tardive dyskinesia, Parkinsons disease, afib (has not taken eliquis for past week due to refill issue), CAD s/p CABG, cardiac arrest s/p ROSC, DM, HTN, HLD, CHF, STEMI w/ use of IABP, splenic infarct, Mitral regurgitation s/p mitral-clip brought to ED by family after they noticed slurred speech and facial droop. head CT: no acute intracranial pathology brain MRI: small acute left insular cortical infarct extending into the frontal dove radiata. Punctate chronic left posterior frontal cortical infarct. Mild periventricular chronic microvascular ischemic changes. brain MRA: the intrasylvian branches of the middle cerebral arteries appear mildly asymmetric with mild paucity of left sided branches suggestive of occlusion which may in part be chronic. Passed Dysphagia screen. NPO Selected Entries 06/15/20 06/15/20 06/15/20 02:59 03:20 06:32 Temperature 97.4 F L Pulse Rate Pulse Rate [ 97 H 104 H Apical] Respiratory 18 19 Rate Respiratory Normal Normal Normal Depth Respiratory Non-Labored Non-Labored Non-Labored Effort Blood Pressure Blood Pressure 118/78 109/73 [Left Arm] O2 Sat by Pulse 95 98 Oximetry (%) Oxygen Delivery Room Air Room Air Room Air Method 06/15/20 06/15/20 09:00 09:38 Temperature Pulse Rate 88 Pulse Rate [ Apical] Respiratory 18 18 Rate Respiratory Normal Depth Respiratory Non-Labored Effort Blood Pressure 106/69 Blood Pressure [Left Arm] O2 Sat by Pulse 95 95 Oximetry (%) Oxygen Delivery Room Air Method Laboratory Tests 06/14/20 06/14/20 06/15/20 23:15 23:20 06:25 WBC 8.4 9.5 COVID-19 ([facility]) Pending Pt passed Dysphagia screen, started on reg diet/thin liquids. Pt tolerated pilled with water. While eating meat balls, started coughing on liquid, turned red. PO held, pending sw evaluation. Previous admissions. 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 CANS: Yes: Dementia Cardiovascular: Yes: AFIB, CHF (borderline reduced LVEF on 2019 ECHO), HTN Hepatobiliary: Yes: Hepatitis C Heme/Onc: Yes: Other Psych: Yes: Anxiety, Other Musculoskeletal: Yes: Other (b/l knee pain) - Past Surgical History Past Surgical History: Yes: CABG - Smoking History Smoking history: Unknown if ever smoked Have you smoked in the past 12 months: No - Alcohol/Substance Use Hx Alcohol Use: No History of Substance Use: reports: None - Social History ADL: Family Assistance (depends on son to care for her) History of Recent Travel: No History - Admission Reason For Visit: CEREBROVASCULAR CVA - Diagnostics CT Scan: Report Reviewed MRI: Report Reviewed Other: Other ( head CT: no acute intracranial pathology brain MRI: small acute left insular cortical infarct extending into the frontal dove radiata. Punctate chronic left posterior frontal cortical infarct. Mild periventricular chronic microvascular ischemic changes. brain MRA: the intrasylvian branches of the middle cerebral arteries appear mildly asymmetric with mild paucity of left sided branches suggestive of occlusion which may in part be chronic.) - General Mental Status: Alert and Oriented, Awake and Alert, Able to Follow Commands, Vague (slow to respond, distractible, right facial, Dysarthria), Flat Affect Attention: Distractible, Mild Impairment, Moderate Impairment Ability to Follow Directions: Fair Head/Neck Control: Fair - Hearing Hearing: Functional Speech Evaluation - Communication Primary Language: UZBEK Secondary Language: LATVIAN (simple, funct'l) Communication: Yes: Simple Responses, Dysarthria Oral Expression Ability: Yes: Mild Impairment, Moderate Impairment - Speech Production Dysarthria: Yes: Flaccid Able to Make Needs Known: Yes: Mildly Impaired, Moderately Impaired Intelligibility: Yes: Mildly Impaired, Moderately Impaired - Speech Characteristics Voice Loudness: Normal Voice Pitch: Yes: Normal Voice Phonatory-based Quality: Yes: Normal Speech Pattern: Impaired Speech Clarity: < 50% Nasal Resonance: Hypernasal Articulation: Yes: Imprecise Rate of Speech: Too Slow - Language/Auditory Comprehension Follows: Yes: 1 Stage Simple Commands Observation: Able to respond to yes/no queries: Yes, Yes/No Confusion: No, Comprehends Conversational Speech: Yes - Language/Verbal Expression Functional Communication Status: Yes: Mildly Impaired, Moderately Impaired - Swallow Evaluation/Bedside Assessment Current Nutritional Intake: Regular, Thin Liquids Dentition: Yes: Adequate Facial Symmetry at Rest: Facial Droop Right Facial Symmetry on Retraction: Facial Droop Right Against Resistance Opening: Weak Against Resistance Closing: Weak Pucker Lips: Droops Right Smile: Droops Right Lingual Movement: Deviates Right Lingual Speed of Movement: Reduced Lingual Movement Strgth Against Opposition: Reduced Lingual Movement Characteristics: Normal Velopharyngeal Movement: Hypernasality Laryngeal Movement: Reduced Excursion, Labored,delay initiation, Reduced Velocity Rate of Intake: Slow/Holding Bolus Size: WFL Labial Seal: Impaired Right Chewing: Impaired Oral Prep Time: Increased Pocketing: Present Right Timing of Swallow: Delayed Coughing/Throat Clear: Yes (per report.) Recommendations - Speech Evaluation, Impression/Plan Impression: slow to respond, distractible, right facial, Dysarthria, Dysphagia, coughing during lunch today. Distractible,delayed onset and forgets to swallow. Suspect stasis in pharynx, and intermittent aspiration sec to delayed swallow and distractibility - Disposition Discharge to: To be Determined - Dysphagia Impressions/Plan Swallowing Skills: Impaired Dysphagia Impressions: Mild Impairment, Moderate Impairment, Ongoing Evaluation, Suspect Aspiration *Silent aspiration: cannot be R/O at bedside Dysphagia Treatment Plan: Small Bites, Chin Tuck/Down, Clear Pocket Food, Safe Rate, 1/2 tsp. at a time, Elevate HOB during feed, Other (remind pt to swallow with each bite) Recommendations: Modified Barium Swallow - Recommendations Diet Consistency: Dysphagia Pureed Medication Administration: Crushed with applesauce Liquids: [place] Thick Supplement: Magic Cup, Ensure Pudding
[2020-06-15] MEDS: CARBIDOPA/LEVODOPA 25/100 TABLET (FP) PO SCH ×4 (11:11→21:39)
[2020-06-15] MEDS: ASPIRIN 81 MG CHEWABLE TABLETS PO SCH (11:24)
[2020-06-15] MEDS: FAMOTIDINE 10 MG TABLET PO SCH (11:25)
--- NOTE | 2020-06-15 11:27 | HOSP ---
Subjective - Review of Symptoms Events since last encounter: Seen and examined. Subjective: Seen and examined in ED pending med surg bed. MRI confirmed CVA. Neurology following. Neurological: Yes: Weakness, Change in speech Physical Examination Vital Signs: Vital Signs Temperature 97.4 F L 06/15/20 06:32 Pulse Rate 88 06/15/20 09:38 Respiratory Rate 18 06/15/20 09:38 Blood Pressure 106/69 06/15/20 09:38 O2 Sat by Pulse Oximetry (%) 95 06/15/20 09:38 Constitutional: Yes: Well Nourished, No Distress, Calm Eyes: Yes: Conjunctiva Clear, EOM Intact, Other (facial droop) HENT: Yes: WNL, Atraumatic, Normocephalic Neck: Yes: WNL, Supple, Trachea Midline Cardiovascular: Yes: WNL, Regular Rate and Rhythm Respiratory: Yes: WNL, Regular, CTA Bilaterally Gastrointestinal: Yes: WNL, Normal Bowel Sounds ...Rectal Exam: Yes: Deferred Renal/: Yes: WNL Breast(s): Yes: WNL Musculoskeletal: Yes: Muscle Weakness (to UE R>L) Edema: No Peripheral Pulses WNL: Yes Peripheral Pulses: Left Radial: 2+, Right Radial: 2+, Left Doralis Pedis: 2+, Right Dorsalis Pedis: 2+, Left Femoral: 2+, Right Femoral: 2+ Integumentary: Yes: WNL Neurological: Yes: Alert, Ataxia, Facial Droop, Unsteady Gait ...Motor Strength: WNL Psychiatric: Yes: Alert Labs: CBC, BMP 06/15/20 06:25 06/15/20 06:25 Hospitalist Encounter Assessment: Problem List - Problems (1) Hx of CABG Code(s): Z95.1 - PRESENCE OF AORTOCORONARY BYPASS GRAFT (2) Cardiac arrest with successful resuscitation Code(s): I46.9 - CARDIAC ARREST, CAUSE UNSPECIFIED (3) STEMI (ST elevation myocardial infarction) Assessment/Plan: previous STEMI c/w metoprolol cardiology following troponins trended down, no chest pain maintain Mg >2.0, K> 4.0 Code(s): I21.3 - ST ELEVATION (STEMI) MYOCARDIAL INFARCTION OF [facility] SITE (4) Atrial fibrillation Assessment/Plan: rate controlled c/w metoprolol c/w eliquis-no bleed on MRI Code(s): I48.91 - UNSPECIFIED ATRIAL FIBRILLATION Qualifiers: Atrial fibrillation type: unspecified Qualified Code(s): I48.91 - Unspecified atrial fibrillation (5) Cerebrovascular accident (CVA) Assessment/Plan: neuorology following eliquis restarted-no bleed on imaging c/w PT carotid dopplers nml TTE noted and cardiology following plan for rehab on discharge Code(s): I63.9 - CEREBRAL INFARCTION, UNSPECIFIED Qualifiers: CVA mechanism: unspecified Qualified Code(s): I63.9 - Cerebral infarction, unspecified (6) Parkinson disease Assessment/Plan: c/w sinemet c/w PT supportive care Code(s): G20 - PARKINSON'S DISEASE (7) Prophylactic measure Assessment/Plan: FEN Fluids: adequate PO intake Electrolytes: monitor & replete as needed Nutrition: dysphagia diet DVT moderate risk eliquis Dispo Maintain as inpatient full code discharge planning home vs rehab Code(s): Z29.9 - ENCOUNTER FOR PROPHYLACTIC MEASURES, UNSPECIFIED (8) HTN (hypertension) Assessment/Plan: normottensive c/w metoprolol hold diltiazem Code(s): I10 - ESSENTIAL (PRIMARY) HYPERTENSION Qualifiers: Hypertension type: unspecified Qualified Code(s): I10 - Essential (primary) hypertension (9) Hyperlipidemia Assessment/Plan: c/w atrivastatin at increased dose Code(s): E78.5 - HYPERLIPIDEMIA, UNSPECIFIED Qualifiers: Hyperlipidemia type: pure hypercholesterolemia Qualified Code(s): E78.00 - Pure hypercholesterolemia, unspecified; E78.0 - Pure hypercholesterolemia (10) S/P mitral valve repair Assessment/Plan: TTE noted Code(s): Z98.890 - OTHER SPECIFIED POSTPROCEDURAL STATES (11) Diastolic CHF Assessment/Plan: appears euvolemic c/w lasix strict I/Os daily weight Code(s): I50.30 - UNSPECIFIED DIASTOLIC (CONGESTIVE) HEART FAILURE (12) Diabetes Assessment/Plan: BGM AC/HS with novolog sliding scale diabetic diet c/w levemir Code(s): E11.9 - TYPE 2 DIABETES MELLITUS WITHOUT COMPLICATIONS
[2020-06-15] MEDS: INSULIN SLIDING SCALE (NOVOLOG) 1 VIAL SQ SCH ×3 (11:32→21:44)
[2020-06-15] MEDS ORDERED: MAGNESIUM OXIDE 400 MG TABLET (FP) PO ONE (11:34)
[2020-06-15] MEDS ORDERED: PT OWN MED DRAWER 7, Y5N ONE ×5 (12:56→20:54)
[2020-06-15] MEDS: TIOTROPIUM BROMIDE 2.5 MCG (SPIRIVA) RESPIMAT INHALER IH SCH (12:57)
[2020-06-15] MEDS: BENZTROPINE MESYLATE 0.5 MG TABLET (FP) PO SCH ×2 (12:57→21:38)
--- NOTE | 2020-06-15 17:05 | CON.CARD ---
Consult Consult Specialty:: cardiology Reason for Consultation:: CVA - History of Present Illness Chief Complaint: Pt c/o pain at left UE IV site; c/o headache; moves all extremities on request; + facial droop History of Present Illness: Ms. Lamb is a 69 yr old woman (b. [place]) with h/o Parkinson's, afib, CAD s/p CABG, cardiac arrest, DM, HTN, HLD, diastolic CHF with moderately decreased RVEF, hx STEMI 10/2018, s/p fina clip p/w abd pain, s/p hematoma, now brought to ED by family after they noticed slurred speech and facial droop. Pt currently A Ox2 (not time) and endorses pain in her knees bilaterally. Pt's apixaban had not been taken for about a week due to refill issues. TNI noted mildly elevated. 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: Yes: Dementia Cardio/Vascular: Yes: AFIB, CHF (borderline reduced LVEF on 2019 ECHO; moderately reduced RVEF), HTN Hepatobiliary: Yes: Hepatitis C Reproductive: Yes: Postmenopausal ...: No Psych: Yes: Anxiety, Other Musculoskeletal: Yes: Other (b/l knee pain) - Past Surgical History Past Surgical History: Yes: CABG - Alcohol/Substance Use Hx Alcohol Use: No History of Substance Use: reports: None - Smoking History Smoking history: Unknown if ever smoked Have you smoked in the past 12 months: No - Social History ADL: Family Assistance (depends on son to care for her) History of Recent Travel: No Home Medications - Allergies Allergies/Adverse Reactions: Allergies Allergy/AdvReac Type Severity Reaction Status Date / Time No Known Allergies Allergy Verified 06/14/20 21:07 - Home Medications Home Medications: Ambulatory Orders Atorvastatin Ca [Lipitor] 20 mg PO HS #30 tablet 12/26/19 Benztropine Mesylate [Cogentin -] 0.5 mg PO BID #60 tablet 12/26/19 Carbidopa/Levodopa 25/100 [Sinemet 25/100 -] 1 each PO TID #120 tablet 12/26/19 Diltiazem Cd [Cardizem Cd -] 180 mg PO DAILY #30 cap.cd.24h 01/14/20 Famotidine [Acid Teacher Physically Impaired] 10 mg PO DAILY #30 tablet 01/14/20 Insulin (Levemir) [Levemir Vial] 5 units SQ AM #15 vial 01/14/20 Lisinopril [Prinivil] 2.5 mg PO DAILY #30 tablet 01/14/20 metFORMIN HCL [Metformin HCl ER] 500 mg PO DAILY #30 tab.er.24h 01/14/20 Tiotropium Clarissa [Spiriva] 2 puff IH DAILY 03/11/20 Apixaban [Eliquis -] 2.5 mg PO BID #60 tablet 03/12/20 Metoprolol Succinate [Toprol XL -] 25 mg PO DAILY #30 tab.sr.24h 03/12/20 Metoprolol Succinate [Toprol XL -] 100 mg PO DAILY #30 tab.sr.24h 03/12/20 Cephalexin Monohydrate [Keflex -] 500 mg PO Q6H #28 capsule 03/13/20 Furosemide [Lasix -] 10 mg PO DAILY 06/14/20 Review of Systems Unable to obtain ROS, reason: CVA - Risk Factors Known Risk Factors: Yes: Age, Diabetes Mellitus, Hypercholesterolemia, Hypertension, Physical Inactivity, Prior KS /Emb Stroke Vital Signs: Vital Signs Temperature 97.9 F 06/15/20 14:35 Pulse Rate 112 H 06/15/20 14:35 Respiratory Rate 20 06/15/20 14:35 Blood Pressure 125/83 06/15/20 14:35 O2 Sat by Pulse Oximetry (%) 95 06/15/20 11:58 Constitutional: Yes: Calm Eyes: Yes: WNL HENT: Yes: WNL Neck: Yes: WNL Respiratory: Yes: Regular. No: SOB Gastrointestinal: Yes: Soft Renal/: No: Anuria Cardiovascular: Yes: Regular Rate and Rhythm Integumentary: Yes: WNL Neurological: Yes: Alert, Confusion (to time) Psychiatric: Yes: Alert, Other - Other Data Labs, Other Data: CBC, BMP 06/15/20 06:25 06/15/20 06:25 INR, PTT INR 1.11 (0.83-1.09) H 06/14/20 23:15 Troponin, BNP 06/14/20 06/15/20 06/15/20 23:15 02:30 06:25 Troponin I 0.59 H 0.48 H 0.37 H Troponin, BNP 06/14/20 06/15/20 06/15/20 23:15 02:30 06:25 Troponin I 0.59 H 0.48 H 0.37 H Abnormal Lab Results 06/15/20 06/15/20 06/15/20 02:30 06:25 06:25 MCHC 31.7 L RDW 16.8 H Random Glucose 129 H Hemoglobin A1c % Magnesium 1.7 L Troponin I 0.48 H 0.37 H Albumin 2.9 L Total LDL Cholesterol 126 H 06/15/20 07:24 MCHC RDW Random Glucose Hemoglobin A1c % 7.1 H Magnesium Troponin I Albumin Total LDL Cholesterol Echo: Pending, Report Reviewed Ejection Fraction %: LVEF > or = 40 % Imaging - Results Chest X-ray: Image Reviewed EKG: Image Reviewed Assessment/Plan Acute CVA possibly from stopping apixaban; ? chronic CVA AF; noncompliance to apixaban Hx STEMI; s/p cardiac arrest diastolic CHF; hx significantly reduced RVEF;s/p fina clip hyperlipidemia obesity DM hypomagnesemia Plan: COVID pending. Neuro w/u noted, and in progress. (restart apixaban tomorrow); on ASA 81 mg daily. Continue metoprolol for HR control. Repeat ECHO pending. ACEI, unless contraindications exist (HTN; DM; CHF; CAD). F/u TNI and EKG serially. replete Mg; f/u all electrolytes. Increase Atorvastatin to 80 mg daily.
--- NOTE | 2020-06-15 19:59 | ECHO ---
Version: 1 Name: NICK WALTER Exam: Adult Echocardiogram Study Date: 06/15/2020, 2:46 PM Age: 69 Years MMode/2D Measurements & Calculations IVSd: 0.87 cm LVIDs: 2.7 cm LVIDd: 3.5 cm LVPWd: 1.21 cm LAV (MOD-bp): 71.0 ml ACS: 1.85 cm Ao root diam: 2.46 cm LVOT diam: 1.67 cm LA dimension: 4.0 cm Doppler Measurements & Calculations MV mean P.7 mmHg MV V2 max: 197.6 cm/sec MV max P.6 mmHg Ao max P.94 mmHg Ao V2 max: 69.2 cm/sec PI end-d allen: 158.2 cm/sec TR max allen: 340.4 cm/sec TR max P.5 mmHg Tech Comments . . technically difficult. Summary Statements Mildly decreased LV function EF 45% Normal RV size and function Moderate LAE Right atrial enlargement Mitral annular calcification Moderate MR Moderate to severe TR. PASP 48 consistent with mild to moderate pulmonary HTN Fibrocalcific changes of the aortic valve without aortic stenosis MD Vic Howard 06/15/2020, 7:59 PM Ordering Physician: Rosina Bolton Referring Physician: EMILE Performed By: Sarina Zelaya
[2020-06-15] MEDS: ATORVASTATIN CA 80 MG TABLET (FP) PO SCH (21:38)
[2020-06-15] MEDS ORDERED: ATORVASTATIN CA 20 MG TABLET (FP) PO SCH (22:00)
[2020-06-16] MEDS: CARBIDOPA/LEVODOPA 25/100 TABLET (FP) PO SCH ×3 (06:03→21:50)
[2020-06-16] MEDS: INSULIN (LEVEMIR) 100 UNITS/ML UNITS SQ SCH (06:12)
[2020-06-16] MEDS: INSULIN SLIDING SCALE (NOVOLOG) 1 VIAL SQ SCH ×4 (06:12→22:30)
[2020-06-16 08:19] LABS: BASO % 0.3 % (0-2.0); HEMATOCRIT 37.1 % (32.4-45.2); LYMPH % 33.5 % (8-40); MCH 26.8 pg (25.7-33.7); MCHC 32.5 g/dl (32.0-36.0); MEAN CELL VOLUME 82.5 fl (80-96); MONO % 4.7 % (3.8-10.2); NEUT % 60.5 % (42.8-82.8); PLATELET COUNT 346 K/MM3 (134-434); RBC 4.49 M/mm3 (3.60-5.2); RDW 16.8 % (11.6-15.6); WHITE BLOOD COUNT 8.3 K/mm3 (4.0-10.0)
[2020-06-16 08:25] LABS: ALBUMIN 3.2 g/dl (3.4-5.0); BILIRUBIN,TOTAL 1.2 mg/dL (0.2-1); BLOOD UREA NITROGEN 16.7 mg/dL (7-18); CALCIUM 9.2 mg/dL (8.5-10.1); CREATININE 0.9 mg/dL (0.55-1.3); POTASSIUM 4.1 mmol/L (3.5-5.1); TOT PROT 8.4 g/dl (6.4-8.2)
--- NOTE | 2020-06-16 08:44 | PN ---
Progress Note, Physician Chief Complaint: Seen and examined in bed. MR confirmed CVA. Facial drop less on right side. Weak to right upper extrem. Requiring 2 person assist in ambulation Speech remains slurred. History of Present Illness: 69yo female w/ PMH of tardive dyskinesia, Parkinsons disease, afib (has not t aken eliquis for past week due to refill issue), CAD s/p CABG, cardiac arrest s/p ROSC, DM, HTN, HLD, CHF, STEMI w/ use of IABP, splenic infarct, Mitral regurgitation s/p mitral-clip brought to ED by family after they noticed slurred speech and facial droop. Patient admitted for CVA in setting of atrial fibrillation. - Current Medication List Current Medications: Active Medications Apixaban (Eliquis -) 2.5 mg PO BID [facility] Aspirin (Asa -) 81 mg PO DAILY [facility] Last Admin: 06/15/20 11:24 Dose: 81 mg Documented by: Atorvastatin Calcium (Lipitor -) 80 mg PO HS [facility] Last Admin: 06/15/20 21:38 Dose: 80 mg Documented by: Benztropine Mesylate (Cogentin -) 0.5 mg PO BID [facility] Last Admin: 06/15/20 21:38 Dose: 0.5 mg Documented by: Carbidopa/Levodopa (Sinemet 25/100 -) 1 each PO TID [facility] Last Admin: 06/16/20 06:03 Dose: 1 each Documented by: Famotidine (Acid In Class Special Education Teacher) 10 mg PO DAILY [facility] Last Admin: 06/15/20 11:25 Dose: 10 mg Documented by: Furosemide (Lasix -) 20 mg PO DAILY [facility] Insulin Aspart (Novolog Vial Sliding Scale -) 1 vial SQ ACHS [facility]; Protocol Last Admin: 06/16/20 06:12 Dose: Not Given Documented by: Insulin Detemir (Levemir Vial) 5 units SQ AM [facility] Last Admin: 06/16/20 06:12 Dose: 5 units Documented by: Metoprolol Succinate (Toprol Xl -) 100 mg PO DAILY [facility] Last Admin: 06/15/20 11:24 Dose: 100 mg Documented by: Tiotropium [place] (Spiriva Respimat) 2 puff IH DAILY [facility] Last Admin: 06/15/20 12:57 Dose: Not Given Documented by: - Objective Vital Signs: Vital Signs Temperature 98.2 F 06/16/20 05:53 Pulse Rate 84 06/16/20 05:53 Respiratory Rate 18 06/16/20 05:53 Blood Pressure 120/76 06/16/20 05:53 O2 Sat by Pulse Oximetry (%) 96 06/16/20 05:53 Constitutional: Yes: Well Nourished, No Distress, Calm Eyes: Yes: Conjunctiva Clear, EOM Intact, Other (facial droop) HENT: Yes: WNL, Atraumatic, Normocephalic Neck: Yes: WNL, Supple, Trachea Midline Cardiovascular: Yes: WNL, Regular Rate and Rhythm Respiratory: Yes: WNL, Regular, CTA Bilaterally Gastrointestinal: Yes: WNL, Normal Bowel Sounds Genitourinary: Yes: WNL Breast(s): Yes: WNL Musculoskeletal: Yes: Muscle Weakness (ro right upper extrem, tremors noted to both UE) Extremities: Yes: WNL Edema: No Peripheral Pulses WNL: Yes Peripheral Pulses: Left Radial: 2+, Right Radial: 2+, Left Doralis Pedis: 2+, Right Dorsalis Pedis: 2+, Left Femoral: 2+, Right Femoral: 2+ Integumentary: Yes: WNL Neurological: Yes: Alert, Ataxia, Dysarthria, Facial Droop, Tremors, Unsteady Gait, Weakness ...Motor Strength: RUE (4/5) Psychiatric: Yes: Alert Labs: CBC, BMP 06/16/20 06:42 INR, PTT INR 1.11 (0.83-1.09) H 06/14/20 23:15 - ....Imaging Ultrasound: Report Reviewed (Carotid:no stenosis) MRI: Report Reviewed (brain MRI: small acute left insular cortical infarct extending into the frontal dove radiata. Punctate chronic left posterior frontal cortical infarct. Mild periventricular chronic microvascular ischemic changes. Brain MRA: the intrasylvian branches of the middle cerebral arteries appear mildly asymmetric with mild paucity of left sided branches suggestive of occlusion which may in part be chronic.) Problem List - Problems (1) Hx of CABG Code(s): Z95.1 - PRESENCE OF AORTOCORONARY BYPASS GRAFT (2) Cardiac arrest with successful resuscitation Code(s): I46.9 - CARDIAC ARREST, CAUSE UNSPECIFIED (3) STEMI (ST elevation myocardial infarction) Assessment/Plan: previous STEMI c/w metoprolol cardiology following troponins trended down, no chest pain maintain Mg >2.0, K> 4.0 Code(s): I21.3 - ST ELEVATION (STEMI) MYOCARDIAL INFARCTION OF [facility] SITE (4) Atrial fibrillation Assessment/Plan: rate controlled c/w metoprolol c/w eliquis-no bleed on MRI Code(s): I48.91 - UNSPECIFIED ATRIAL FIBRILLATION Qualifiers: Atrial fibrillation type: unspecified Qualified Code(s): I48.91 - Unspecified atrial fibrillation (5) Cerebrovascular accident (CVA) Assessment/Plan: neuorology following eliquis restarted-no bleed on imaging c/w PT carotid dopplers nml TTE noted and cardiology following plan for rehab on discharge Code(s): I63.9 - CEREBRAL INFARCTION, UNSPECIFIED Qualifiers: CVA mechanism: unspecified Qualified Code(s): I63.9 - Cerebral infarction, unspecified (6) Parkinson disease Assessment/Plan: c/w sinemet c/w PT supportive care Code(s): G20 - PARKINSON'S DISEASE (7) Prophylactic measure Assessment/Plan: FEN Fluids: adequate PO intake Electrolytes: monitor & replete as needed Nutrition: dysphagia diet DVT moderate risk eliquis Dispo Maintain as inpatient full code discharge planning home vs rehab Code(s): Z29.9 - ENCOUNTER FOR PROPHYLACTIC MEASURES, UNSPECIFIED (8) HTN (hypertension) Assessment/Plan: normottensive c/w metoprolol hold diltiazem Code(s): I10 - ESSENTIAL (PRIMARY) HYPERTENSION Qualifiers: Hypertension type: unspecified Qualified Code(s): I10 - Essential (primary) hypertension (9) Hyperlipidemia Assessment/Plan: c/w atrivastatin at increased dose Code(s): E78.5 - HYPERLIPIDEMIA, UNSPECIFIED Qualifiers: Hyperlipidemia type: pure hypercholesterolemia Qualified Code(s): E78.00 - Pure hypercholesterolemia, unspecified; E78.0 - Pure hypercholesterolemia (10) S/P mitral valve repair Assessment/Plan: TTE noted Code(s): Z98.890 - OTHER SPECIFIED POSTPROCEDURAL STATES (11) Diastolic CHF Assessment/Plan: appears euvolemic c/w lasix strict I/Os daily weight Code(s): I50.30 - UNSPECIFIED DIASTOLIC (CONGESTIVE) HEART FAILURE (12) Diabetes Assessment/Plan: BGM AC/HS with novolog sliding scale diabetic diet c/w levemir Code(s): E11.9 - TYPE 2 DIABETES MELLITUS WITHOUT COMPLICATIONS Visit type - Emergency Visit Emergency Visit: Yes ED Registration Date: 06/14/20 Care time: The patient presented to the Emergency Department on the above date and was hospitalized for further evaluation of their emergent condition. - New Patient This patient is new to me today: No - Critical Care Critical Care patient: No - Discharge Referral Referred to [facility] Med P.C[facility] No - Medication Review Med list reviewed for High Risk Meds patients 65 and older: Yes
--- NOTE | 2020-06-16 08:50 | PN ---
Progress Note (short form) - Note Progress Note: Neurology CHIEF COMPLAINT: R facial droop PCP: Dr. Poncho Amaro ([address]) HISTORY OF PRESENT ILLNESS: 69yo female w/ PMH of tardive dyskinesia, Parkinsons disease, afib (has not taken eliquis for past week due to refill issue), CAD s/p CABG, cardiac arrest s/p ROSC, DM, HTN, HLD, CHF, STEMI w/ use of IABP, splenic infarct, Mitral regurgitation s/p mitral-clip brought to ED by family after they noticed slurred speech and facial droop. Pt currently AOx2 (not time) and endorses pain in her knees bilaterally. head CT performed and showed no acute intracranial pathology, generalized cerebral atrophy with no interval change since prior CT exam of 12/20/2019. Brain MRI completed and demonstrated small acute left insular cortical infarct extending into the frontal dove radiata. Punctate chronic left posterior frontal cortical infarct. Mild periventricular chronic microvascular ischemic changes. Also brain MRA done and showed the intrasylvian branches of the middle cerebral arteries appear mildly asymmetric with mild paucity of left sided branches suggestive of occlusion which may in part be chronic. CVA may be secondary to Eliquis noncompliance. Patient seen on medical floor and more awake as well as alert during my interaction with her. cardiology note reviewed, Eliquis was on hold and can be restarted. There is still small chance of bleeding but with risk for subsequent thromboembolic event, benefit of restarting anticoagulation outweighs risk at this point. Discussed with nurse at bedside this morning. Patient does continue to have speech difficulty and sspeech/swallow note reviewed. Carotid Dopplers reviewed and without hemodynamically significant stenosis, echo reviewed and showed ejection fraction 45% and mildly reduced left ventricular function Active Medications Apixaban (Eliquis -) 2.5 mg PO BID [facility] Aspirin (Asa -) 81 mg PO DAILY [facility] Last Admin: 06/15/20 11:24 Dose: 81 mg Documented by: Atorvastatin Calcium (Lipitor -) 80 mg PO HS [facility] Last Admin: 06/15/20 21:38 Dose: 80 mg Documented by: Benztropine Mesylate (Cogentin -) 0.5 mg PO BID [facility] Last Admin: 06/15/20 21:38 Dose: 0.5 mg Documented by: Carbidopa/Levodopa (Sinemet 25/100 -) 1 each PO TID [facility] Last Admin: 06/16/20 06:03 Dose: 1 each Documented by: Famotidine (Acid Pathology Tech) 10 mg PO DAILY [facility] Last Admin: 06/15/20 11:25 Dose: 10 mg Documented by: Furosemide (Lasix -) 20 mg PO DAILY [facility] Insulin Aspart (Novolog Vial Sliding Scale -) 1 vial SQ ACHS [facility]; Protocol Last Admin: 06/16/20 06:12 Dose: Not Given Documented by: Insulin Detemir (Levemir Vial) 5 units SQ AM [facility] Last Admin: 06/16/20 06:12 Dose: 5 units Documented by: Metoprolol Succinate (Toprol Xl -) 100 mg PO DAILY [facility] Last Admin: 06/15/20 11:24 Dose: 100 mg Documented by: Tiotropium [place] (Spiriva Respimat) 2 puff IH DAILY [facility] Last Admin: 06/15/20 12:57 Dose: Not Given Documented by: PHYSICAL EXAMINATION Vital Signs Period Temp Pulse Resp BP Sys/Castillo Pulse Ox Last 24 Hr 97.6 F-98.8 F 84-112 18-20 106-125/66-83 94-100 GENERAL: Awake, alert, and fully oriented, in no acute distress. HEAD: Normal with no signs of trauma. EYES: Pupils equal, round and reactive to light, extraocular movements intact, sclera anicteric, conjunctiva clear. No lid lag. EARS, NOSE, THROAT: Ears normal, nares patent, oropharynx clear without exudates. Moist mucous membranes. NECK: Normal range of motion, supple without lymphadenopathy, JVD, or masses. LUNGS: Breath sounds equal, clear to auscultation bilaterally. No wheezes, and no crackles. No accessory muscle use. HEART: Regular rate and rhythm, normal S1 and S2 without murmur, rub or gallop. ABDOMEN: Soft, nontender, not distended, normoactive bowel sounds, no guarding, no rebound, no masses. No hepatomegaly or splenomegaly. MUSCULOSKELETAL: Normal range of motion at all joints. No bony deformities or tenderness. No CVA tenderness. UPPER EXTREMITIES: 2+ pulses, warm, well-perfused. No cyanosis. No clubbing. No peripheral edema. LOWER EXTREMITIES: 2+ pulses, warm, well-perfused. No calf tenderness. No peripheral edema. NEUROLOGICAL: Speech difficulty, slurring, some aphasia, moves extremities grossly but not participating confrontation testing, sensory intact, gait deferred PSYCHIATRIC: Cooperative. Good eye contact. Appropriate mood and affect. SKIN: Warm, dry, normal turgor, no rashes or lesions noted, normal capillary refill. CBCD WBC 8.3 K/mm3 (4.0-10.0) 06/16/20 06:42 RBC 4.49 M/mm3 (3.60-5.2) 06/16/20 06:42 Hgb 12.0 GM/dL (10.7-15.3) 06/16/20 06:42 Hct 37.1 % (32.4-45.2) 06/16/20 06:42 MCV 82.5 fl (80-96) 06/16/20 06:42 MCHC 32.5 g/dl (32.0-36.0) 06/16/20 06:42 RDW 16.8 % (11.6-15.6) H 06/16/20 06:42 Plt Count 346 K/MM3 (134-434) D 06/16/20 06:42 MPV 9.0 fl (7.5-11.1) 06/16/20 06:42 CMP Sodium 137 mmol/L (136-145) 06/16/20 06:42 Potassium 4.1 mmol/L (3.5-5.1) 06/16/20 06:42 Chloride 102 mmol/L (98-107) 06/16/20 06:42 Carbon Dioxide 28 mmol/L (21-32) 06/16/20 06:42 Anion Gap 7 MMOL/L (8-16) L 06/16/20 06:42 BUN 16.7 mg/dL (7-18) 06/16/20 06:42 Creatinine 0.9 mg/dL (0.55-1.3) 06/16/20 06:42 Random Glucose 142 mg/dL (74-106) H 06/16/20 06:42 Calcium 9.2 mg/dL (8.5-10.1) 06/16/20 06:42 Total Bilirubin 1.2 mg/dL (0.2-1) H 06/16/20 06:42 AST 16 U/L (15-37) 06/16/20 06:42 ALT 7 U/L (13-61) L 06/16/20 06:42 Alkaline Phosphatase 80 U/L (45-117) 06/16/20 06:42 Total Protein 8.4 g/dl (6.4-8.2) H 06/16/20 06:42 Albumin 3.2 g/dl (3.4-5.0) L 06/16/20 06:42 CARDIAC ENZYMES Creatine Kinase 60 U/L (26-192) 06/14/20 23:15 Troponin I 0.37 ng/ml (0.00-0.05) H 06/15/20 06:25 ASSESSMENT/PLAN: 69yo female w/ PMH of tardive dyskinesia, Parkinsons disease, afib (has not taken eliquis for past week due to refill issue), CAD s/p CABG, cardiac arrest s/p ROSC, DM, HTN, HLD, CHF, STEMI w/ use of IABP, splenic infarct, Mitral regurgitation s/p mitral-clip brought to ED by family after they noticed slurred speech and facial droop. Pt currently AOx2 (not time) and endorses pain in her knees bilaterally. head CT performed and showed no acute intracranial pathology, generalized cerebral atrophy with no interval change since prior CT exam of 12/20/2019. Brain MRI completed and demonstrated small acute left insular cortical infarct extending into the frontal dove radiata. Punctate chronic left posterior frontal cortical infarct. Mild periventricular chronic microvascular ischemic changes. Also brain MRA done and showed the intrasylvian branches of the middle cerebral arteries appear mildly asymmetric with mild paucity of left sided branches suggestive of occlusion which may in part be chronic. CVA may be secondary to Eliquis noncompliance. Patient seen on medical floor and more awake as well as alert during my interaction with her. cardiology note reviewed, Eliquis was on hold and can be restarted. There is still small chance of bleeding but with risk for subsequent thromboembolic event, benefit of restarting anticoagulation outweighs risk at this point. Discussed with nurse at bedside this morning. Carotid Dopplers reviewed and without hemodynamically significant stenosis, echo reviewed and showed ejection fraction 45% and mildly reduced left ventricular function. Patient does continue to have speech difficulty and sspeech/swallow note reviewed. LDL 126, increased statin to 40mg, primry team increased to 80. goal LDL <70 in CVA. Physical therapy as tolerated. Continue Sinemet and Cogentin for Parkinson's disease. monitor blood pressure, goal < 140/90. Monitor diabetes, continue metformin. Rehab placement may be needed.
[2020-06-16] MEDS ORDERED: PT OWN MED DRAWER 7, Y5N ONE ×2 (09:08→14:45)
[2020-06-16] MEDS: ASPIRIN 81 MG CHEWABLE TABLETS PO SCH (09:34)
[2020-06-16] MEDS: FUROSEMIDE 20 MG TABLET (FP) PO SCH (09:34)
[2020-06-16] MEDS: BENZTROPINE MESYLATE 0.5 MG TABLET (FP) PO SCH ×2 (09:34→21:50)
[2020-06-16] MEDS: FAMOTIDINE 10 MG TABLET PO SCH (09:34)
--- NOTE | 2020-06-16 10:24 | PN ---
Progress Note, Physician History of Present Illness: Ms. Lamb is a 69 yr old woman (b. [place]) with h/o Parkinson's, afib, CAD s/p CABG, cardiac arrest, DM, HTN, HLD, diastolic CHF with moderately decreased RVEF, hx STEMI 10/2018, s/p fina clip p/w abd pain, s/p hematoma, now brought to ED by family after they noticed slurred speech and facial droop. Pt currently AOx2 (not time) and endorses pain in her knees bilaterally. Pt's apixaban had not been taken for about a week due to refill issues. - Current Medication List Current Medications: Active Medications Apixaban (Eliquis -) 2.5 mg PO BID [facility] Aspirin (Asa -) 81 mg PO DAILY [facility] Last Admin: 06/16/20 09:34 Dose: 81 mg Documented by: Atorvastatin Calcium (Lipitor -) 80 mg PO HS [facility] Last Admin: 06/15/20 21:38 Dose: 80 mg Documented by: Benztropine Mesylate (Cogentin -) 0.5 mg PO BID [facility] Last Admin: 06/16/20 09:34 Dose: 0.5 mg Documented by: Carbidopa/Levodopa (Sinemet 25/100 -) 1 each PO TID [facility] Last Admin: 06/16/20 06:03 Dose: 1 each Documented by: Famotidine (Acid Director Strategy) 10 mg PO DAILY [facility] Last Admin: 06/16/20 09:34 Dose: 10 mg Documented by: Furosemide (Lasix -) 20 mg PO DAILY [facility] Last Admin: 06/16/20 09:34 Dose: 20 mg Documented by: Insulin Aspart (Novolog Vial Sliding Scale -) 1 vial SQ ACHS [facility]; Protocol Last Admin: 06/16/20 06:12 Dose: Not Given Documented by: Insulin Detemir (Levemir Vial) 5 units SQ AM [facility] Last Admin: 06/16/20 06:12 Dose: 5 units Documented by: Metoprolol Succinate (Toprol Xl -) 100 mg PO DAILY [facility] Last Admin: 06/16/20 09:34 Dose: 100 mg Documented by: Tiotropium [place] (Spiriva Respimat) 2 puff IH DAILY [facility] Last Admin: 06/15/20 12:57 Dose: Not Given Documented by: - Objective Vital Signs: Vital Signs Temperature 98.2 F 06/16/20 05:53 Pulse Rate 84 06/16/20 05:53 Respiratory Rate 18 06/16/20 05:53 Blood Pressure 120/76 06/16/20 05:53 O2 Sat by Pulse Oximetry (%) 96 06/16/20 05:53 Eyes: Yes: WNL, Conjunctiva Clear, EOM Intact HENT: Yes: WNL, Atraumatic, Normocephalic Neck: Yes: WNL, Supple, Trachea Midline Cardiovascular: Yes: WNL, Regular Rate and Rhythm, S1, S2 Respiratory: Yes: WNL, Regular, CTA Bilaterally Gastrointestinal: Yes: WNL, Normal Bowel Sounds Genitourinary: Yes: WNL Musculoskeletal: Yes: WNL Extremities: Yes: WNL Edema: No Integumentary: Yes: WNL ...Motor Strength: WNL Psychiatric: Yes: WNL Labs: CBC, BMP 06/16/20 06:42 06/16/20 06:42 INR, PTT INR 1.11 (0.83-1.09) H 06/14/20 23:15 Problem List - Problems (1) Atrial fibrillation Code(s): I48.91 - UNSPECIFIED ATRIAL FIBRILLATION (2) Cardiac arrest with successful resuscitation Code(s): I46.9 - CARDIAC ARREST, CAUSE UNSPECIFIED (3) Cerebrovascular accident (CVA) Code(s): I63.9 - CEREBRAL INFARCTION, UNSPECIFIED (4) Hx of CABG Code(s): Z95.1 - PRESENCE OF AORTOCORONARY BYPASS GRAFT (5) STEMI (ST elevation myocardial infarction) Code(s): I21.3 - ST ELEVATION (STEMI) MYOCARDIAL INFARCTION OF [facility] (6) CHF exacerbation Code(s): I50.9 - HEART FAILURE, UNSPECIFIED (7) Chest pain, atypical Code(s): R07.89 - OTHER CHEST PAIN (8) Chronic pain of both knees Code(s): M25.561 - PAIN IN RIGHT KNEE; M25.562 - PAIN IN LEFT KNEE; G89.29 - OTHER CHRONIC PAIN (9) DVT prophylaxis Code(s): Z29.9 - ENCOUNTER FOR PROPHYLACTIC MEASURES, UNSPECIFIED (10) Dementia Code(s): F03.90 - UNSPECIFIED DEMENTIA WITHOUT BEHAVIORAL DISTURBANCE (11) Depression Code(s): F32.9 - MAJOR DEPRESSIVE DISORDER, SINGLE EPISODE, UNSPECIFIED (12) Diabetes Code(s): E11.9 - TYPE 2 DIABETES MELLITUS WITHOUT COMPLICATIONS (13) Diastolic CHF Code(s): I50.30 - UNSPECIFIED DIASTOLIC (CONGESTIVE) HEART FAILURE (14) Heart failure, chronic, with acute decompensation Code(s): I50.9 - HEART FAILURE, UNSPECIFIED Qualifiers: Heart failure type: diastolic Qualified Code(s): I50.33 - Acute on chronic diastolic (congestive) heart failure (15) Hepatic congestion Code(s): K76.1 - CHRONIC PASSIVE CONGESTION OF LIVER (16) Parkinson disease Code(s): G20 - PARKINSON'S DISEASE (17) Parkinsonism Code(s): G20 - PARKINSON'S DISEASE (18) Prophylactic measure Code(s): Z29.9 - ENCOUNTER FOR PROPHYLACTIC MEASURES, UNSPECIFIED (19) Rectus sheath hematoma Code(s): S30.1XXA - CONTUSION OF ABDOMINAL WALL, INITIAL ENCOUNTER (20) Splenic infarct Code(s): D73.5 - INFARCTION OF SPLEEN (21) Spondylosis with compression of nerve root of lumbosacral region Code(s): M47.27 - OTHER SPONDYLOSIS WITH RADICULOPATHY, LUMBOSACRAL REGION (22) Status post fall Code(s): Z91.81 - HISTORY OF FALLING (23) Status post implantation of mitral valve leaflet clip Code(s): Z98.890 - OTHER SPECIFIED POSTPROCEDURAL STATES; Z95.818 - PRESENCE OF OTHER CARDIAC IMPLANTS AND GRAFTS (24) Supratherapeutic INR Code(s): R79.1 - ABNORMAL COAGULATION PROFILE (25) Syncope and collapse Code(s): R55 - SYNCOPE AND COLLAPSE (26) Acute on chronic systolic and diastolic heart failure, NYHA class 1 Code(s): I50.43 - ACUTE ON CHRONIC COMBINED SYSTOLIC AND DIASTOLIC HRT FAIL (27) Anemia Code(s): D64.9 - ANEMIA, UNSPECIFIED (28) Atrial fibrillation with rapid ventricular response Code(s): I48.91 - UNSPECIFIED ATRIAL FIBRILLATION (29) FH: mitral valve repair Code(s): Z82.49 - FAMILY HX OF ISCHEM HEART DIS AND OTH DIS OF THE CIRC SYS (30) HTN (hypertension) Code(s): I10 - ESSENTIAL (PRIMARY) HYPERTENSION Qualifiers: Hypertension type: unspecified Qualified Code(s): I10 - Essential (primary) hypertension (31) Hyperlipidemia Code(s): E78.5 - HYPERLIPIDEMIA, UNSPECIFIED Qualifiers: Hyperlipidemia type: pure hypercholesterolemia Qualified Code(s): E78.00 - Pure hypercholesterolemia, unspecified; E78.0 - Pure hypercholesterolemia (32) Hypothyroid Code(s): E03.9 - HYPOTHYROIDISM, UNSPECIFIED (33) Memory deficit Code(s): R41.3 - OTHER AMNESIA (34) Need for assistance due to unsteady gait Code(s): R26.89 - OTHER ABNORMALITIES OF GAIT AND MOBILITY (35) Parkinson disease Code(s): G20 - PARKINSON'S DISEASE (36) Parkinsonian tremor Code(s): G20 - PARKINSON'S DISEASE (37) S/P mitral valve repair Code(s): Z98.890 - OTHER SPECIFIED POSTPROCEDURAL STATES (38) Shortness of breath Code(s): R06.02 - SHORTNESS OF BREATH (39) Subcortical dementia Code(s): F03.90 - UNSPECIFIED DEMENTIA WITHOUT BEHAVIORAL DISTURBANCE (40) Systolic CHF Code(s): I50.20 - UNSPECIFIED SYSTOLIC (CONGESTIVE) HEART FAILURE (41) T2DM (type 2 diabetes mellitus) Code(s): E11.9 - TYPE 2 DIABETES MELLITUS WITHOUT COMPLICATIONS Qualifiers: Diabetes mellitus rodent exterminator insulin use: unspecified retirement insulin use status Diabetes mellitus complication status: with unspecified complications (42) Tardive dyskinesia Code(s): G24.01 - DRUG INDUCED SUBACUTE DYSKINESIA (43) Chest pain Code(s): R07.9 - CHEST PAIN, UNSPECIFIED (44) Hypomagnesemia Code(s): E83.42 - HYPOMAGNESEMIA (45) PNA (pneumonia) Code(s): J18.9 - PNEUMONIA, UNSPECIFIED ORGANISM Qualifiers: Pneumonia type: due to unspecified organism Laterality: bilateral Lung location: unspecified part of lung Qualified Code(s): J18.9 - Pneumonia, unspecified organism (46) Respiratory distress Code(s): R06.03 - ACUTE RESPIRATORY DISTRESS (47) Viral illness Code(s): B34.9 - VIRAL INFECTION, UNSPECIFIED Assessment/Plan Acute CVA possibly from stopping apixaban; ? chronic CVA AF; noncompliance to apixaban Hx STEMI; s/p cardiac arrest diastolic CHF; hx significantly reduced RVEF;s/p fina clip hyperlipidemia obesity DM hypomagnesemia Plan: COVID pending. Neuro w/u noted, and in progress. (restart apixaban tomorrow); on ASA 81 mg daily. Continue metoprolol for HR control. Repeat ECHO pending. ACEI, unless contraindications exist (HTN; DM; CHF; CAD). F/u TNI and EKG serially. replete Mg; f/u all electrolytes. Increase Atorvastatin to 80 mg daily.
--- NOTE | 2020-06-16 10:32 | PN ---
Progress Note, ACID CONDENSER - Note Progress Note: Selected Entries 06/16/20 06/16/20 06/16/20 02:00 05:53 09:00 Temperature 97.6 F 98.2 F 97.4 F L Pulse Rate 93 H 84 89 Blood Pressure 120/73 120/76 114/63 Laboratory Tests 06/14/20 06/16/20 23:20 06:42 WBC 8.3 COVID-19 ([facility]) Pending Downgraded to puree/nectar Suggest MBS today
[2020-06-16] MEDS: TIOTROPIUM BROMIDE 2.5 MCG (SPIRIVA) RESPIMAT INHALER IH SCH (11:15)
[2020-06-16] MEDS: ATORVASTATIN CA 80 MG TABLET (FP) PO SCH (21:49)
[2020-06-16] MEDS: APIXABAN 2.5 MG TABLET PO SCH (21:50)
[2020-06-16] MEDS ORDERED: APIXABAN 2.5 MG TABLET PO SCH (22:00)
[2020-06-17] MEDS: CARBIDOPA/LEVODOPA 25/100 TABLET (FP) PO SCH ×3 (06:23→22:40)
[2020-06-17] MEDS: INSULIN (LEVEMIR) 100 UNITS/ML UNITS SQ SCH (06:25)
[2020-06-17] MEDS: INSULIN SLIDING SCALE (NOVOLOG) 1 VIAL SQ SCH ×4 (06:28→22:48)
[2020-06-17 06:59] LABS: BASO % 0.6 % (0-2.0); EOS % 1.5 % (0-4.5); HEMATOCRIT 34.5 % (32.4-45.2); HEMOGLOBIN 11.3 GM/dL (10.7-15.3); LYMPH % 32.2 % (8-40); MCH 26.9 pg (25.7-33.7); MCHC 32.9 g/dl (32.0-36.0); MEAN CELL VOLUME 81.8 fl (80-96); MONO % 6.8 % (3.8-10.2); NEUT % 58.9 % (42.8-82.8); PLATELET COUNT 306 K/MM3 (134-434); RBC 4.22 M/mm3 (3.60-5.2); RDW 16.6 % (11.6-15.6); WHITE BLOOD COUNT 7.6 K/mm3 (4.0-10.0)
[2020-06-17 07:05] LABS: INR 1.3 (0.83-1.09); PROTHROMBIN TIME (PATIENT) 15.4 SEC (9.7-13.0)
[2020-06-17 07:37] LABS: ALK PHOS 74 U/L (45-117); ANION GAP 8 MMOL/L (8-16); BILIRUBIN,TOTAL 0.8 mg/dL (0.2-1); BLOOD UREA NITROGEN 15.9 mg/dL (7-18); CALCIUM 9.1 mg/dL (8.5-10.1); CHLORIDE 106 mmol/L (98-107); CO2 26 mmol/L (21-32); CREATININE 0.7 mg/dL (0.55-1.3); GLUCOSE,RANDOM 118 mg/dL (74-106); MAGNESIUM 2.1 mg/dL (1.8-2.4); SGOT/AST 17 U/L (15-37); SODIUM 139 mmol/L (136-145); TOT PROT 7.6 g/dl (6.4-8.2)
[2020-06-17 08:21] LABS: SGPT/ALT < 6 U/L (13-61)
--- NOTE | 2020-06-17 09:03 | PN ---
Progress Note (short form) - Note Progress Note: Neurology CHIEF COMPLAINT: R facial droop PCP: Dr. Poncho Amaro ([place]) HISTORY OF PRESENT ILLNESS: 69yo female w/ PMH of tardive dyskinesia, Parkinsons disease, afib (has not taken eliquis for past week due to refill issue), CAD s/p CABG, cardiac arrest s/p ROSC, DM, HTN, HLD, CHF, STEMI w/ use of IABP, splenic infarct, Mitral regurgitation s/p mitral-clip brought to ED by family after they noticed slurred speech and facial droop. Pt currently AOx2 (not time) and endorses pain in her knees bilaterally. head CT performed and showed no acute intracranial pathology, generalized cerebral atrophy with no interval change since prior CT exam of 12/20/2019. Brain MRI completed and demonstrated small acute left insular cortical infarct extending into the frontal dove radiata. Punctate chronic left posterior frontal cortical infarct. Mild periventricular chronic microvascular ischemic changes. Also brain MRA done and showed the intrasylvian branches of the middle cerebral arteries appear mildly asymmetric with mild paucity of left sided branches suggestive of occlusion which may in part be chronic. CVA may be secondary to Eliquis noncompliance. Patient seen on medical floor and more awake as well as alert during my interaction with her. cardiology note reviewed, Eliquis restarted. There is still small chance of bleeding but with risk for subsequent thromboembolic event, benefit of restarting anticoagulation outweighs risk at this point. Patient does continue to have speech difficulty and sspeech/swallow note reviewed, modified barium swallow completed. Carotid Dopplers reviewed and without hemodynamically significant stenosis, echo reviewed and showed ejection fraction 45% and mildly reduced left ventricular function. Active Medications Apixaban (Eliquis -) 2.5 mg PO BID [facility] Last Admin: 06/16/20 21:50 Dose: 2.5 mg Documented by: Aspirin (Asa -) 81 mg PO DAILY [facility] Last Admin: 06/16/20 09:34 Dose: 81 mg Documented by: Atorvastatin Calcium (Lipitor -) 80 mg PO HS [facility] Last Admin: 06/16/20 21:49 Dose: 80 mg Documented by: Benztropine Mesylate (Cogentin -) 0.5 mg PO BID [facility] Last Admin: 06/16/20 21:50 Dose: 0.5 mg Documented by: Carbidopa/Levodopa (Sinemet 25/100 -) 1 each PO TID [facility] Last Admin: 06/17/20 06:23 Dose: 1 each Documented by: Famotidine (Acid Slot Supervisor) 10 mg PO DAILY [facility] Last Admin: 06/16/20 09:34 Dose: 10 mg Documented by: Furosemide (Lasix -) 20 mg PO DAILY [facility] Last Admin: 06/16/20 09:34 Dose: 20 mg Documented by: Insulin Aspart (Novolog Vial Sliding Scale -) 1 vial SQ ACHS [facility]; Protocol Last Admin: 06/17/20 06:28 Dose: Not Given Documented by: Insulin Detemir (Levemir Vial) 5 units SQ AM [facility] Last Admin: 06/17/20 06:25 Dose: 5 units Documented by: Metoprolol Succinate (Toprol Xl -) 100 mg PO DAILY [facility] Last Admin: 06/16/20 09:34 Dose: 100 mg Documented by: Tiotropium [place] (Spiriva Respimat) 2 puff IH DAILY [facility] Last Admin: 06/16/20 11:15 Dose: Not Given Documented by: PHYSICAL EXAMINATION Vital Signs Period Temp Pulse Resp BP Sys/Castillo Pulse Ox Last 24 Hr 97.6 F-98.8 F 84-112 18-20 106-125/66-83 94-100 GENERAL: Awake, alert, and fully oriented, in no acute distress. HEAD: Normal with no signs of trauma. EYES: Pupils equal, round and reactive to light, extraocular movements intact, sclera anicteric, conjunctiva clear. No lid lag. EARS, NOSE, THROAT: Ears normal, nares patent, oropharynx clear without exudates. Moist mucous membranes. NECK: Normal range of motion, supple without lymphadenopathy, JVD, or masses. LUNGS: Breath sounds equal, clear to auscultation bilaterally. No wheezes, and no crackles. No accessory muscle use. HEART: Regular rate and rhythm, normal S1 and S2 without murmur, rub or gallop. ABDOMEN: Soft, nontender, not distended, normoactive bowel sounds, no guarding, no rebound, no masses. No hepatomegaly or splenomegaly. MUSCULOSKELETAL: Normal range of motion at all joints. No bony deformities or tenderness. No CVA tenderness. UPPER EXTREMITIES: 2+ pulses, warm, well-perfused. No cyanosis. No clubbing. No peripheral edema. LOWER EXTREMITIES: 2+ pulses, warm, well-perfused. No calf tenderness. No peripheral edema. NEUROLOGICAL: Speech difficulty, slurring, some aphasia, moves extremities grossly but not participating confrontation testing, sensory intact, gait deferred PSYCHIATRIC: Cooperative. Good eye contact. Appropriate mood and affect. SKIN: Warm, dry, normal turgor, no rashes or lesions noted, normal capillary refill. CBCD WBC 8.3 K/mm3 (4.0-10.0) 06/16/20 06:42 RBC 4.49 M/mm3 (3.60-5.2) 06/16/20 06:42 Hgb 12.0 GM/dL (10.7-15.3) 06/16/20 06:42 Hct 37.1 % (32.4-45.2) 06/16/20 06:42 MCV 82.5 fl (80-96) 06/16/20 06:42 MCHC 32.5 g/dl (32.0-36.0) 06/16/20 06:42 RDW 16.8 % (11.6-15.6) H 06/16/20 06:42 Plt Count 346 K/MM3 (134-434) D 06/16/20 06:42 MPV 9.0 fl (7.5-11.1) 06/16/20 06:42 CMP Sodium 137 mmol/L (136-145) 06/16/20 06:42 Potassium 4.1 mmol/L (3.5-5.1) 06/16/20 06:42 Chloride 102 mmol/L (98-107) 06/16/20 06:42 Carbon Dioxide 28 mmol/L (21-32) 06/16/20 06:42 Anion Gap 7 MMOL/L (8-16) L 06/16/20 06:42 BUN 16.7 mg/dL (7-18) 06/16/20 06:42 Creatinine 0.9 mg/dL (0.55-1.3) 06/16/20 06:42 Random Glucose 142 mg/dL (74-106) H 06/16/20 06:42 Calcium 9.2 mg/dL (8.5-10.1) 06/16/20 06:42 Total Bilirubin 1.2 mg/dL (0.2-1) H 06/16/20 06:42 AST 16 U/L (15-37) 06/16/20 06:42 ALT 7 U/L (13-61) L 06/16/20 06:42 Alkaline Phosphatase 80 U/L (45-117) 06/16/20 06:42 Total Protein 8.4 g/dl (6.4-8.2) H 06/16/20 06:42 Albumin 3.2 g/dl (3.4-5.0) L 06/16/20 06:42 CARDIAC ENZYMES Creatine Kinase 60 U/L (26-192) 06/14/20 23:15 Troponin I 0.37 ng/ml (0.00-0.05) H 06/15/20 06:25 ASSESSMENT/PLAN: 69yo female w/ PMH of tardive dyskinesia, Parkinsons disease, afib (has not taken eliquis for past week due to refill issue), CAD s/p CABG, cardiac arrest s/p ROSC, DM, HTN, HLD, CHF, STEMI w/ use of IABP, splenic infarct, Mitral regurgitation s/p mitral-clip brought to ED by family after they noticed slurred speech and facial droop. Pt currently AOx2 (not time) and endorses pain in her knees bilaterally. head CT performed and showed no acute intracranial pathology, generalized cerebral atrophy with no interval change since prior CT exam of 12/20/2019. Brain MRI completed and demonstrated small acute left insular cortical infarct extending into the frontal dove radiata. Punctate chronic left posterior frontal cortical infarct. Mild periventricular chronic microvascular ischemic changes. Also brain MRA done and showed the intrasylvian branches of the middle cerebral arteries appear mildly asymmetric with mild paucity of left sided branches suggestive of occlusion which may in part be chronic. CVA may be secondary to Eliquis noncompliance. Patient seen on medical floor and more awake as well as alert during my interaction with her. cardiology note reviewed, Eliquis restarted. There is still small chance of bleeding but with risk for subsequent thromboembolic event, benefit of restarting anticoagulation outweighs risk at this point. Patient does continue to have speech difficulty and sspeech/swallow note reviewed, modified barium swallow completed. LDL 126, increased statin to 40mg, primry team increased to 80. goal LDL <70 in CVA. Physical therapy as tolerated. Continue Sinemet and Cogentin for Parkinson's disease. monitor blood pressure, goal < 140/90. Monitor diabetes, continue metformin. Cardiology note reviewed. Rehab placement may be needed.
[2020-06-17] MEDS: APIXABAN 2.5 MG TABLET PO SCH ×2 (10:03→22:39)
[2020-06-17] MEDS ORDERED: PT OWN MED DRAWER 7, Y5N ONE ×2 (10:03→12:54)
[2020-06-17] MEDS: FAMOTIDINE 10 MG TABLET PO SCH (10:04)
[2020-06-17] MEDS: ASPIRIN 81 MG CHEWABLE TABLETS PO SCH (10:04)
[2020-06-17] MEDS: BENZTROPINE MESYLATE 0.5 MG TABLET (FP) PO SCH ×2 (10:04→22:40)
[2020-06-17] MEDS: FUROSEMIDE 20 MG TABLET (FP) PO SCH (10:05)
[2020-06-17] MEDS: TIOTROPIUM BROMIDE 2.5 MCG (SPIRIVA) RESPIMAT INHALER IH SCH (10:08)
--- NOTE | 2020-06-17 11:25 | PN ---
Progress Note, CERTIFIED NURSE MIDWIFE - Note Progress Note: Selected Entries 06/16/20 06/16/20 06/16/20 02:00 05:53 09:00 Temperature 97.6 F 98.2 F 97.4 F L Pulse Rate 93 H 84 89 Blood Pressure 120/73 120/76 114/63 Laboratory Tests 06/14/20 06/16/20 23:20 06:42 WBC 8.3 COVID-19 ([facility]) Pending Selected Entries 06/16/20 06/16/20 06/16/20 11:05 15:00 18:00 Breakfast 50% Diet Tolerated Well Well Fair Lunch 50% Supper 50% Temperature Pulse Rate Blood Pressure 06/17/20 06/17/20 06/17/20 02:02 05:33 09:00 Breakfast Diet Tolerated Lunch Supper Temperature 97.5 F L 98.8 F 98.4 F Pulse Rate 75 82 95 H Blood Pressure 130/65 119/73 116/78 Laboratory Tests 06/14/20 06/17/20 06/17/20 23:15 05:38 05:38 WBC 7.6 PT with INR 13.10 H 15.40 H INR 1.11 H 1.30 H Speech intelligibilty impaired, with difficulty (Nurse eriberto Causey-Could not understand her) On puree/nectar MBS completed. Impulsive self feeding Suggest trial of dysphagia Chopped/thin/verbal cues to take small bites, chew well, swallow before next trial
--- NOTE | 2020-06-17 14:20 | PN ---
Progress Note, Physician Chief Complaint: Seen and examined sitting in chair. Facial drop and weakness improving. Speech improving. Family requesting to take pt home when medically stable. History of Present Illness: 69yo female w/ PMH of tardive dyskinesia, Parkinsons disease, afib (has not taken eliquis for past week due to refill issue), CAD s/p CABG, cardiac arrest s/p ROSC, DM, HTN, HLD, CHF, STEMI w/ use of IABP, splenic infarct, Mitral regurgitation s/p mitral-clip brought to ED by family after they noticed slurred speech and facial droop. Patient admitted for CVA in setting of atrial fibrillation. - Current Medication List Current Medications: Active Medications Apixaban (Eliquis -) 2.5 mg PO BID [facility] Last Admin: 06/17/20 10:03 Dose: 2.5 mg Documented by: Aspirin (Asa -) 81 mg PO DAILY [facility] Last Admin: 06/17/20 10:04 Dose: 81 mg Documented by: Atorvastatin Calcium (Lipitor -) 80 mg PO HS [facility] Last Admin: 06/16/20 21:49 Dose: 80 mg Documented by: Benztropine Mesylate (Cogentin -) 0.5 mg PO BID [facility] Last Admin: 06/17/20 10:04 Dose: 0.5 mg Documented by: Carbidopa/Levodopa (Sinemet 25/100 -) 1 each PO TID [facility] Last Admin: 06/17/20 13:14 Dose: 1 each Documented by: Famotidine (Acid Property Disposal Officer) 10 mg PO DAILY [facility] Last Admin: 06/17/20 10:04 Dose: 10 mg Documented by: Furosemide (Lasix -) 20 mg PO DAILY [facility] Last Admin: 06/17/20 10:05 Dose: 20 mg Documented by: Insulin Aspart (Novolog Vial Sliding Scale -) 1 vial SQ ACHS [facility]; Protocol Last Admin: 06/17/20 12:02 Dose: Not Given Documented by: Insulin Detemir (Levemir Vial) 5 units SQ AM [facility] Last Admin: 06/17/20 06:25 Dose: 5 units Documented by: Metoprolol Succinate (Toprol Xl -) 100 mg PO DAILY [facility] Last Admin: 06/17/20 10:03 Dose: 100 mg Documented by: Tiotropium Strandquist (Spiriva Respimat) 2 puff IH DAILY [facility] Last Admin: 06/17/20 10:08 Dose: 2 puff Documented by: - Objective Vital Signs: Vital Signs Temperature 98.4 F 06/17/20 09:00 Pulse Rate 95 H 06/17/20 09:00 Respiratory Rate 22 H 06/17/20 09:00 Blood Pressure 116/78 06/17/20 09:00 O2 Sat by Pulse Oximetry (%) 98 06/17/20 09:00 Additional Findings/Remarks: Constitutional: Yes: Well Nourished, No Distress, Calm Eyes: Yes: Conjunctiva Clear, EOM Intact, Other (facial droop) HENT: Yes: WNL, Atraumatic, Normocephalic Neck: Yes: WNL, Supple, Trachea Midline Cardiovascular: Yes: WNL, Regular Rate and Rhythm Respiratory: Yes: WNL, Regular, CTA Bilaterally Gastrointestinal: Yes: WNL, Normal Bowel Sounds Genitourinary: Yes: WNL Breast(s): Yes: WNL Musculoskeletal: Yes: Muscle Weakness (ro right upper extrem, tremors noted to both UE) Extremities: Yes: WNL Edema: No Peripheral Pulses WNL: Yes Peripheral Pulses: Left Radial: 2+, Right Radial: 2+, Left Doralis Pedis: 2+, Right Dorsalis Pedis: 2+, Left Femoral: 2+, Right Femoral: 2+ Integumentary: Yes: WNL Neurological: Yes: Alert, Ataxia, Dysarthria, Facial Droop, Tremors, Gait improving , Weakness improving ...Motor Strength: RUE (4/5) Psychiatric: Yes: Alert Labs: CBC, BMP 06/17/20 05:38 06/17/20 05:38 INR, PTT INR 1.30 (0.83-1.09) H 06/17/20 05:38 Problem List - Problems (1) Hx of CABG Assessment/Plan: c/w eliquis,asa Code(s): Z95.1 - PRESENCE OF AORTOCORONARY BYPASS GRAFT (2) Cardiac arrest with successful resuscitation Code(s): I46.9 - CARDIAC ARREST, CAUSE UNSPECIFIED (3) STEMI (ST elevation myocardial infarction) Assessment/Plan: previous STEMI c/w metoprolol cardiology following troponins trended down, no chest pain maintain Mg >2.0, K> 4.0 Code(s): I21.3 - ST ELEVATION (STEMI) MYOCARDIAL INFARCTION OF [facility] SITE (4) Atrial fibrillation Assessment/Plan: rate controlled c/w metoprolol c/w eliquis-no bleed on MRI-home dose 2.5mg will c/w dose Code(s): I48.91 - UNSPECIFIED ATRIAL FIBRILLATION Qualifiers: Atrial fibrillation type: unspecified Qualified Code(s): I48.91 - Unspecified atrial fibrillation (5) Cerebrovascular accident (CVA) Assessment/Plan: neuorology following c/w eliquis c/w PT carotid dopplers nml TTE noted and cardiology following dispo to home vs snf for rehab Code(s): I63.9 - CEREBRAL INFARCTION, UNSPECIFIED Qualifiers: CVA mechanism: unspecified Qualified Code(s): I63.9 - Cerebral infarction, unspecified (6) Parkinson disease Assessment/Plan: c/w sinemet c/w PT supportive care Code(s): G20 - PARKINSON'S DISEASE (7) Prophylactic measure Assessment/Plan: FEN Fluids: adequate PO intake Electrolytes: monitor & replete as needed Nutrition: dysphagia diet DVT moderate risk eliquis Dispo Maintain as inpatient full code discharge planning home vs rehab. Spoke with son Marybel Sanchez and would like to take pt home with services in place vs placement in SNF. SW looking at home therapy options and [facility] sent if adequate service can not be set hoe for home. Code(s): Z29.9 - ENCOUNTER FOR PROPHYLACTIC MEASURES, UNSPECIFIED (8) HTN (hypertension) Assessment/Plan: normottensive c/w metoprolol hold diltiazem Code(s): I10 - ESSENTIAL (PRIMARY) HYPERTENSION Qualifiers: Hypertension type: unspecified Qualified Code(s): I10 - Essential (primary) hypertension (9) Hyperlipidemia Assessment/Plan: c/w atrivastatin at increased dose Code(s): E78.5 - HYPERLIPIDEMIA, UNSPECIFIED Qualifiers: Hyperlipidemia type: pure hypercholesterolemia Qualified Code(s): E78.00 - Pure hypercholesterolemia, unspecified; E78.0 - Pure hypercholesterolemia (10) S/P mitral valve repair Assessment/Plan: TTE noted Code(s): Z98.890 - OTHER SPECIFIED POSTPROCEDURAL STATES (11) Diastolic CHF Assessment/Plan: appears euvolemic c/w lasix strict I/Os daily weight Code(s): I50.30 - UNSPECIFIED DIASTOLIC (CONGESTIVE) HEART FAILURE (12) Diabetes Assessment/Plan: BGM AC/HS with novolog sliding scale diabetic diet c/w levemir Code(s): E11.9 - TYPE 2 DIABETES MELLITUS WITHOUT COMPLICATIONS Visit type - Emergency Visit Emergency Visit: Yes ED Registration Date: 06/14/20 Care time: The patient presented to the Emergency Department on the above date and was hospitalized for further evaluation of their emergent condition. - New Patient This patient is new to me today: No - Critical Care Critical Care patient: No - Discharge Referral Referred to [facility] No - Medication Review Med list reviewed for High Risk Meds patients 65 and older: Yes
[2020-06-17] MEDS ORDERED: ATORVASTATIN CA 40 MG TABLET (FP) ONE (22:25)
[2020-06-17] MEDS: ATORVASTATIN CA 80 MG TABLET (FP) PO SCH (22:39)
--- NOTE | 2020-06-18 04:17 | PN ---
Progress Note, Physician Chief Complaint: Pt A&O; no dyspnea or chest pain. History of Present Illness: Ms. Lamb is a 69 yr old woman (b. [place]) with h/o Parkinson's, afib, CAD s/p CABG, cardiac arrest, DM, HTN, HLD, diastolic CHF with moderately decreased RVEF, hx STEMI 10/2018, s/p fina clip p/w abd pain, s/p hematoma, now brought to ED by family after they noticed slurred speech and facial droop. Pt currently AOx2 (not time) and endorses pain in her knees bilaterally. Pt's apixaban had not been taken for about a week due to refill issues. TNI noted mildly elevated. - Current Medication List Current Medications: Active Medications Apixaban (Eliquis -) 2.5 mg PO BID [facility] Last Admin: 06/17/20 22:39 Dose: 2.5 mg Documented by: Aspirin (Asa -) 81 mg PO DAILY [facility] Last Admin: 06/17/20 10:04 Dose: 81 mg Documented by: Atorvastatin Calcium (Lipitor -) 80 mg PO HS [facility] Last Admin: 06/17/20 22:39 Dose: 80 mg Documented by: Benztropine Mesylate (Cogentin -) 0.5 mg PO BID [facility] Last Admin: 06/17/20 22:40 Dose: 0.5 mg Documented by: Carbidopa/Levodopa (Sinemet 25/100 -) 1 each PO TID [facility] Last Admin: 06/17/20 22:40 Dose: 1 each Documented by: Famotidine (Acid Transit Proof Machine Operator) 10 mg PO DAILY [facility] Last Admin: 06/17/20 10:04 Dose: 10 mg Documented by: Furosemide (Lasix -) 20 mg PO DAILY [facility] Last Admin: 06/17/20 10:05 Dose: 20 mg Documented by: Insulin Aspart (Novolog Vial Sliding Scale -) 1 vial SQ ACHS [facility]; Protocol Last Admin: 06/17/20 22:48 Dose: Not Given Documented by: Insulin Detemir (Levemir Vial) 5 units SQ AM [facility] Last Admin: 06/17/20 06:25 Dose: 5 units Documented by: Metoprolol Succinate (Toprol Xl -) 100 mg PO DAILY [facility] Last Admin: 06/17/20 10:03 Dose: 100 mg Documented by: Tiotropium Sherrill (Spiriva Respimat) 2 puff IH DAILY [facility] Last Admin: 06/17/20 10:08 Dose: 2 puff Documented by: - Objective Vital Signs: Vital Signs Temperature 97.5 F L 06/18/20 02:00 Pulse Rate 99 H 06/18/20 02:00 Respiratory Rate 18 06/18/20 02:00 Blood Pressure 100/50 L 06/18/20 02:00 O2 Sat by Pulse Oximetry (%) 99 06/18/20 02:00 Constitutional: Yes: Calm Eyes: Yes: WNL HENT: Yes: WNL Cardiovascular: Yes: Pulse Irregular, S1 (varies in intensity), S2 Respiratory: Yes: Regular Gastrointestinal: Yes: Soft Breast(s): Yes: WNL Musculoskeletal: Yes: Muscle Weakness Peripheral Pulses WNL: Yes Integumentary: Yes: WNL Neurological: Yes: Alert, Oriented, Weakness Psychiatric: Yes: Alert, Oriented, Other Labs: CBC, BMP 06/17/20 05:38 06/17/20 05:38 INR, PTT INR 1.30 (0.83-1.09) H 06/17/20 05:38 - ....Imaging Chest X-ray: Image Reviewed Ultrasound: Report Reviewed (ECHO: mildly reduced LVEF: significant pumonary HTN) EKG: Image Reviewed (AF) Assessment/Plan Acute CVA possibly from stopping apixaban; ? chronic CVA AF; noncompliance to apixaban for at least the past week Hx STEMI; s/p cardiac arrest now with elevated TNI: multiple contributers to demand ischemia Systolic (mildly reduced LVEF)/diastolic CHF; hx significantly reduced RVEF (most recent ECHO: normal RVEF; mild CHIN);s/p fina clip hyperlipidemia Parkinson's disease obesity DM hypomagnesemia: repleted Depression, exacerbated by recent of her Plan: COVID negative. Apixaban restarted; also on ASA. Continue metoprolol for HR control. On levo carbidopa ECHO: mildly reduced LVEF; normal RVEF and RV size; moderate LAE; CHIN; moderate ly severe TR; mild-moderate pulmonary HTN Start lisinopril 2.5 mg daily, unless contraindications exist (HTN; DM; systolic CHF; CAD). F/u TNI and EKG serially. replete Mg; f/u all electrolytes. Increase Atorvastatin to 80 mg daily.
[2020-06-18] MEDS: CARBIDOPA/LEVODOPA 25/100 TABLET (FP) PO SCH ×3 (06:07→21:32)
[2020-06-18] MEDS: INSULIN SLIDING SCALE (NOVOLOG) 1 VIAL SQ SCH ×4 (06:22→21:31)
[2020-06-18] MEDS: INSULIN (LEVEMIR) 100 UNITS/ML UNITS SQ SCH (06:22)
--- NOTE | 2020-06-18 07:40 | PN ---
Progress Note, Physician Chief Complaint: Seen and examined in bed. Speech, weakness,facial drop continues to improve. Discharge planning in progress to home with services in place History of Present Illness: 69yo female w/ PMH of tardive dyskinesia, Parkinsons disease, afib (has not taken eliquis for past week due to refill issue), CAD s/p CABG, cardiac arrest s/p ROSC, DM, HTN, HLD, CHF, STEMI w/ use of IABP, splenic infarct, Mitral regurgitation s/p mitral-clip brought to ED by family after they noticed slurred speech and facial droop. Patient admitted for CVA in setting of atrial fibrillation. - Current Medication List Current Medications: Active Medications Apixaban (Eliquis -) 2.5 mg PO BID [facility] Last Admin: 06/17/20 22:39 Dose: 2.5 mg Documented by: Aspirin (Asa -) 81 mg PO DAILY [facility] Last Admin: 06/17/20 10:04 Dose: 81 mg Documented by: Atorvastatin Calcium (Lipitor -) 80 mg PO HS [facility] Last Admin: 06/17/20 22:39 Dose: 80 mg Documented by: Benztropine Mesylate (Cogentin -) 0.5 mg PO BID [facility] Last Admin: 06/17/20 22:40 Dose: 0.5 mg Documented by: Carbidopa/Levodopa (Sinemet 25/100 -) 1 each PO TID [facility] Last Admin: 06/18/20 06:07 Dose: 1 each Documented by: Famotidine (Acid Med Aide) 10 mg PO DAILY [facility] Last Admin: 06/17/20 10:04 Dose: 10 mg Documented by: Furosemide (Lasix -) 20 mg PO DAILY [facility] Last Admin: 06/17/20 10:05 Dose: 20 mg Documented by: Insulin Aspart (Novolog Vial Sliding Scale -) 1 vial SQ ACHS [facility]; Protocol Last Admin: 06/18/20 06:22 Dose: 2 units Documented by: Insulin Detemir (Levemir Vial) 5 units SQ AM [facility] Last Admin: 06/18/20 06:22 Dose: 5 units Documented by: Metoprolol Succinate (Toprol Xl -) 100 mg PO DAILY [facility] Last Admin: 06/17/20 10:03 Dose: 100 mg Documented by: Tiotropium Goldsmith (Spiriva Respimat) 2 puff IH DAILY [facility] Last Admin: 06/17/20 10:08 Dose: 2 puff Documented by: - Objective Vital Signs: Vital Signs Temperature 98.4 F 06/18/20 06:00 Pulse Rate 93 H 06/18/20 06:00 Respiratory Rate 18 06/18/20 06:00 Blood Pressure 115/63 06/18/20 06:00 O2 Sat by Pulse Oximetry (%) 99 06/18/20 02:00 Additional Findings/Remarks: Constitutional: Yes: Well Nourished, No Distress, Calm Eyes: Yes: Conjunctiva Clear, EOM Intact, Other (facial droop) HENT: Yes: WNL, Atraumatic, Normocephalic Neck: Yes: WNL, Supple, Trachea Midline Cardiovascular: Yes: WNL, Regular Rate and Rhythm Respiratory: Yes: WNL, Regular, CTA Bilaterally Gastrointestinal: Yes: WNL, Normal Bowel Sounds Genitourinary: Yes: WNL Breast(s): Yes: WNL Musculoskeletal: Yes: Muscle Weakness (right upper extrem, tremors noted to both UE) Extremities: Yes: WNL Edema: No Peripheral Pulses WNL: Yes Peripheral Pulses: Left Radial: 2+, Right Radial: 2+, Left Doralis Pedis: 2+, Right Dorsalis Pedis: 2+, Left Femoral: 2+, Right Femoral: 2+ Integumentary: Yes: WNL Neurological: Yes: Alert, Ataxia imrpoving, Dysarthria, Facial Droop, Tremors, Gait improving , Weakness improving ...Motor Strength: RUE (4/5) Psychiatric: Yes: Alert Labs: INR, PTT INR 1.30 (0.83-1.09) H 06/17/20 05:38 Problem List - Problems (1) Hx of CABG Assessment/Plan: c/w james,asa Code(s): Z95.1 - PRESENCE OF AORTOCORONARY BYPASS GRAFT (2) Cardiac arrest with successful resuscitation Code(s): I46.9 - CARDIAC ARREST, CAUSE UNSPECIFIED (3) STEMI (ST elevation myocardial infarction) Assessment/Plan: previous STEMI c/w metoprolol cardiology following maintain Mg >2.0, K> 4.0 Code(s): I21.3 - ST ELEVATION (STEMI) MYOCARDIAL INFARCTION OF [facility] SITE (4) Atrial fibrillation Assessment/Plan: rate controlled c/w metoprolol c/w eliquis-no bleed on MRI-home dose 2.5mg will c/w dose Code(s): I48.91 - UNSPECIFIED ATRIAL FIBRILLATION Qualifiers: Atrial fibrillation type: unspecified Qualified Code(s): I48.91 - Unspecified atrial fibrillation (5) Cerebrovascular accident (CVA) Assessment/Plan: neuorology following c/w eliquis c/w PT carotid dopplers nml TTE noted and cardiology following dispo to home Code(s): I63.9 - CEREBRAL INFARCTION, UNSPECIFIED Qualifiers: CVA mechanism: unspecified Qualified Code(s): I63.9 - Cerebral infarction, unspecified (6) Parkinson disease Assessment/Plan: c/w sinemet c/w PT supportive care Code(s): G20 - PARKINSON'S DISEASE (7) Prophylactic measure Assessment/Plan: FEN Fluids: adequate PO intake Electrolytes: monitor & replete as needed Nutrition: dysphagia diet DVT moderate risk eliquis Dispo Maintain as inpatient full code discharge planning home to [facility] Code(s): Z29.9 - ENCOUNTER FOR PROPHYLACTIC MEASURES, UNSPECIFIED (8) HTN (hypertension) Assessment/Plan: normotensive c/w metoprolol hold diltiazem Code(s): I10 - ESSENTIAL (PRIMARY) HYPERTENSION Qualifiers: Hypertension type: unspecified Qualified Code(s): I10 - Essential (primary) hypertension (9) Hyperlipidemia Assessment/Plan: c/w atrivastatin at increased dose Code(s): E78.5 - HYPERLIPIDEMIA, UNSPECIFIED Qualifiers: Hyperlipidemia type: pure hypercholesterolemia Qualified Code(s): E78.00 - Pure hypercholesterolemia, unspecified; E78.0 - Pure hypercholesterolemia (10) S/P mitral valve repair Assessment/Plan: TTE noted Code(s): Z98.890 - OTHER SPECIFIED POSTPROCEDURAL STATES (11) Diastolic CHF Assessment/Plan: appears euvolemic c/w lasix strict I/Os daily weight Code(s): I50.30 - UNSPECIFIED DIASTOLIC (CONGESTIVE) HEART FAILURE (12) Diabetes Assessment/Plan: BGM AC/HS with novolog sliding scale diabetic diet c/w levemir Code(s): E11.9 - TYPE 2 DIABETES MELLITUS WITHOUT COMPLICATIONS (13) Dysphagia Assessment/Plan: STAFF MIDWIFE following Recommend trial of dysphagia Chopped/thin/verbal cues to take small bites, chew well, swallow before next trial Code(s): R13.10 - DYSPHAGIA, UNSPECIFIED Visit type - Emergency Visit Emergency Visit: Yes ED Registration Date: 06/14/20 Care time: The patient presented to the Emergency Department on the above date and was hospitalized for further evaluation of their emergent condition. - New Patient This patient is new to me today: No - Critical Care Critical Care patient: No - Discharge Referral Referred to [facility] No - Medication Review Med list reviewed for High Risk Meds patients 65 and older: Yes
[2020-06-18 08:01] LABS: BASO % 0.8 % (0-2.0); HEMATOCRIT 39.5 % (32.4-45.2); HEMOGLOBIN 12.8 GM/dL (10.7-15.3); LYMPH % 26.5 % (8-40); MCH 26.7 pg (25.7-33.7); MCHC 32.3 g/dl (32.0-36.0); MEAN CELL VOLUME 82.7 fl (80-96); MEAN PLT VOLUME 9.1 fl (7.5-11.1); MONO % 7.9 % (3.8-10.2); NEUT % 63.8 % (42.8-82.8); PLATELET COUNT 259 K/MM3 (134-434); RBC 4.78 M/mm3 (3.60-5.2); RDW 16.8 % (11.6-15.6)
[2020-06-18 08:11] LABS: BILIRUBIN,TOTAL 1.5 mg/dL (0.2-1); BLOOD UREA NITROGEN 18.4 mg/dL (7-18); CREATININE 0.9 mg/dL (0.55-1.3); MAGNESIUM 1.9 mg/dL (1.8-2.4); TOT PROT 7.8 g/dl (6.4-8.2)
--- NOTE | 2020-06-18 08:15 | PN ---
Progress Note, Physician History of Present Illness: Ms. Lamb is a 69 yr old woman (b. [place]) with h/o Parkinson's, afib, CAD s/p CABG, cardiac arrest, DM, HTN, HLD, diastolic CHF with moderately decreased RVEF, hx STEMI 10/2018, s/p fina clip p/w abd pain, s/p hematoma, now brought to ED by family after they noticed slurred speech and facial droop. Pt currently AOx2 (not time) and endorses pain in her knees bilaterally. Pt's apixaban had not been taken for about a week due to refill issues. - Current Medication List Current Medications: Active Medications Apixaban (Eliquis -) 2.5 mg PO BID [facility] Last Admin: 06/17/20 22:39 Dose: 2.5 mg Documented by: Aspirin (Asa -) 81 mg PO DAILY [facility] Last Admin: 06/17/20 10:04 Dose: 81 mg Documented by: Atorvastatin Calcium (Lipitor -) 80 mg PO HS [facility] Last Admin: 06/17/20 22:39 Dose: 80 mg Documented by: Benztropine Mesylate (Cogentin -) 0.5 mg PO BID [facility] Last Admin: 06/17/20 22:40 Dose: 0.5 mg Documented by: Carbidopa/Levodopa (Sinemet 25/100 -) 1 each PO TID [facility] Last Admin: 06/18/20 06:07 Dose: 1 each Documented by: Famotidine (Acid Relocation Director) 10 mg PO DAILY [facility] Last Admin: 06/17/20 10:04 Dose: 10 mg Documented by: Furosemide (Lasix -) 20 mg PO DAILY [facility] Last Admin: 06/17/20 10:05 Dose: 20 mg Documented by: Insulin Aspart (Novolog Vial Sliding Scale -) 1 vial SQ ACHS [facility]; Protocol Last Admin: 06/18/20 06:22 Dose: 2 units Documented by: Insulin Detemir (Levemir Vial) 5 units SQ AM [facility] Last Admin: 06/18/20 06:22 Dose: 5 units Documented by: Metoprolol Succinate (Toprol Xl -) 100 mg PO DAILY [facility] Last Admin: 06/17/20 10:03 Dose: 100 mg Documented by: Tiotropium [place] (Spiriva Respimat) 2 puff IH DAILY [facility] Last Admin: 06/17/20 10:08 Dose: 2 puff Documented by: - Objective Vital Signs: Vital Signs Temperature 98.4 F 06/18/20 06:00 Pulse Rate 93 H 06/18/20 06:00 Respiratory Rate 18 06/18/20 06:00 Blood Pressure 115/63 06/18/20 06:00 O2 Sat by Pulse Oximetry (%) 99 06/18/20 02:00 Eyes: Yes: WNL, Conjunctiva Clear, EOM Intact HENT: Yes: WNL, Atraumatic, Normocephalic Neck: Yes: WNL, Supple, Trachea Midline Cardiovascular: Yes: WNL, Regular Rate and Rhythm Respiratory: Yes: WNL, Regular, CTA Bilaterally Gastrointestinal: Yes: WNL, Normal Bowel Sounds Genitourinary: Yes: WNL Musculoskeletal: Yes: WNL Extremities: Yes: WNL Edema: No Integumentary: Yes: WNL Neurological: Yes: Alert Labs: CBC, BMP 06/18/20 07:00 06/18/20 07:00 INR, PTT INR 1.30 (0.83-1.09) H 06/17/20 05:38 Problem List - Problems (1) Atrial fibrillation Code(s): I48.91 - UNSPECIFIED ATRIAL FIBRILLATION Qualifiers: Atrial fibrillation type: unspecified Qualified Code(s): I48.91 - Un specified atrial fibrillation (2) Cardiac arrest with successful resuscitation Code(s): I46.9 - CARDIAC ARREST, CAUSE UNSPECIFIED (3) Cerebrovascular accident (CVA) Code(s): I63.9 - CEREBRAL INFARCTION, UNSPECIFIED Qualifiers: CVA mechanism: unspecified Qualified Code(s): I63.9 - Cerebral infarction, unspecified (4) Hx of CABG Code(s): Z95.1 - PRESENCE OF AORTOCORONARY BYPASS GRAFT (5) STEMI (ST elevation myocardial infarction) Code(s): I21.3 - ST ELEVATION (STEMI) MYOCARDIAL INFARCTION OF UNSP SITE (6) CHF exacerbation Code(s): I50.9 - HEART FAILURE, UNSPECIFIED (7) Chest pain, atypical Code(s): R07.89 - OTHER CHEST PAIN (8) Chronic pain of both knees Code(s): M25.561 - PAIN IN RIGHT KNEE; M25.562 - PAIN IN LEFT KNEE; G89.29 - OTHER CHRONIC PAIN (9) DVT prophylaxis Code(s): Z29.9 - ENCOUNTER FOR PROPHYLACTIC MEASURES, UNSPECIFIED (10) Dementia Code(s): F03.90 - UNSPECIFIED DEMENTIA WITHOUT BEHAVIORAL DISTURBANCE (11) Depression Code(s): F32.9 - MAJOR DEPRESSIVE DISORDER, SINGLE EPISODE, UNSPECIFIED (12) Diabetes Code(s): E11.9 - TYPE 2 DIABETES MELLITUS WITHOUT COMPLICATIONS (13) Diastolic CHF Code(s): I50.30 - UNSPECIFIED DIASTOLIC (CONGESTIVE) HEART FAILURE (14) Heart failure, chronic, with acute decompensation Code(s): I50.9 - HEART FAILURE, UNSPECIFIED Qualifiers: Heart failure type: diastolic Qualified Code(s): I50.33 - Acute on chronic diastolic (congestive) heart failure (15) Hepatic congestion Code(s): K76.1 - CHRONIC PASSIVE CONGESTION OF LIVER (16) Parkinson disease Code(s): G20 - PARKINSON'S DISEASE (17) Parkinsonism Code(s): G20 - PARKINSON'S DISEASE (18) Prophylactic measure Code(s): Z29.9 - ENCOUNTER FOR PROPHYLACTIC MEASURES, UNSPECIFIED (19) Rectus sheath hematoma Code(s): S30.1XXA - CONTUSION OF ABDOMINAL WALL, INITIAL ENCOUNTER (20) Splenic infarct Code(s): D73.5 - INFARCTION OF SPLEEN (21) Spondylosis with compression of nerve root of lumbosacral region Code(s): M47.27 - OTHER SPONDYLOSIS WITH RADICULOPATHY, LUMBOSACRAL REGION (22) Status post fall Code(s): Z91.81 - HISTORY OF FALLING (23) Status post implantation of mitral valve leaflet clip Code(s): Z98.890 - OTHER SPECIFIED POSTPROCEDURAL STATES; Z95.818 - PRESENCE OF OTHER CARDIAC IMPLANTS AND GRAFTS (24) Supratherapeutic INR Code(s): R79.1 - ABNORMAL COAGULATION PROFILE (25) Syncope and collapse Code(s): R55 - SYNCOPE AND COLLAPSE (26) Acute on chronic systolic and diastolic heart failure, NYHA class 1 Code(s): I50.43 - ACUTE ON CHRONIC COMBINED SYSTOLIC AND DIASTOLIC HRT FAIL (27) Anemia Code(s): D64.9 - ANEMIA, UNSPECIFIED (28) Atrial fibrillation with rapid ventricular response Code(s): I48.91 - UNSPECIFIED ATRIAL FIBRILLATION (29) FH: mitral valve repair Code(s): Z82.49 - FAMILY HX OF ISCHEM HEART DIS AND OTH DIS OF THE CIRC SYS (30) HTN (hypertension) Code(s): I10 - ESSENTIAL (PRIMARY) HYPERTENSION Qualifiers: Hypertension type: unspecified Qualified Code(s): I10 - Essential (primary) hypertension (31) Hyperlipidemia Code(s): E78.5 - HYPERLIPIDEMIA, UNSPECIFIED Qualifiers: Hyperlipidemia type: pure hypercholesterolemia Qualified Code(s): E78.00 - Pure hypercholesterolemia, unspecified; E78.0 - Pure hypercholesterolemia (32) Hypothyroid Code(s): E03.9 - HYPOTHYROIDISM, UNSPECIFIED (33) Memory deficit Code(s): R41.3 - OTHER AMNESIA (34) Need for assistance due to unsteady gait Code(s): R26.89 - OTHER ABNORMALITIES OF GAIT AND MOBILITY (35) Parkinson disease Code(s): G20 - PARKINSON'S DISEASE (36) Parkinsonian tremor Code(s): G20 - PARKINSON'S DISEASE (37) S/P mitral valve repair Code(s): Z98.890 - OTHER SPECIFIED POSTPROCEDURAL STATES (38) Shortness of breath Code(s): R06.02 - SHORTNESS OF BREATH (39) Subcortical dementia Code(s): F03.90 - UNSPECIFIED DEMENTIA WITHOUT BEHAVIORAL DISTURBANCE (40) Systolic CHF Code(s): I50.20 - UNSPECIFIED SYSTOLIC (CONGESTIVE) HEART FAILURE (41) T2DM (type 2 diabetes mellitus) Code(s): E11.9 - TYPE 2 DIABETES MELLITUS WITHOUT COMPLICATIONS Qualifiers: Diabetes mellitus custodial insulin use: unspecified buttermaker continuous churn insulin use status Diabetes mellitus complication status: with unspecified complications (42) Tardive dyskinesia Code(s): G24.01 - DRUG INDUCED SUBACUTE DYSKINESIA (43) Chest pain Code(s): R07.9 - CHEST PAIN, UNSPECIFIED (44) Hypomagnesemia Code(s): E83.42 - HYPOMAGNESEMIA (45) PNA (pneumonia) Code(s): J18.9 - PNEUMONIA, UNSPECIFIED ORGANISM Qualifiers: Pneumonia type: due to unspecified organism Laterality: bilateral Lung location: unspecified part of lung Qualified Code(s): J18.9 - Pneumonia, unspecified organism (46) Respiratory distress Code(s): R06.03 - ACUTE RESPIRATORY DISTRESS (47) Viral illness Code(s): B34.9 - VIRAL INFECTION, UNSPECIFIED Assessment/Plan Acute CVA possibly from stopping apixaban; ? chronic CVA AF; noncompliance to apixaban for at least the past week Hx STEMI; s/p cardiac arrest now with elevated TNI: multiple contributers to demand ischemia Systolic (mildly reduced LVEF)/diastolic CHF; hx significantly reduced RVEF (most recent ECHO: normal RVEF; mild CHIN);s/p fina clip hyperlipidemia Parkinson's disease obesity DM hypomagnesemia: repleted Depression, exacerbated by recent of her Plan: COVID negative. Apixaban restarted; also on ASA. Continue metoprolol for HR control. On levo carbidopa ECHO: mildly reduced LVEF; normal RVEF and RV size; moderate LAE; CHIN; moderately severe TR; mild-moderate pulmonary HTN Start lisinopril 2.5 mg daily, unless contraindications exist (HTN; DM; systolic CHF; CAD). F/u TNI and EKG serially. replete Mg; f/u all electrolytes. Increase Atorvastatin to 80 mg daily. d/c telemetry
--- NOTE | 2020-06-18 09:05 | PN ---
Progress Note (short form) - Note Progress Note: Neurology CHIEF COMPLAINT: R facial droop PCP: Dr. Poncho Amaro ([place]) HISTORY OF PRESENT ILLNESS: 69yo female w/ PMH of tardive dyskinesia, Parkinsons disease, afib (has not taken eliquis for past week due to refill issue), CAD s/p CABG, cardiac arrest s/p ROSC, DM, HTN, HLD, CHF, STEMI w/ use of IABP, splenic infarct, Mitral regurgitation s/p mitral-clip brought to ED by family after they noticed slurred speech and facial droop. Pt currently AOx2 (not time) and endorses pain in her knees bilaterally. head CT performed and showed no acute intracranial pathology, generalized cerebral atrophy with no interval change since prior CT exam of 12/20/2019. Brain MRI completed and demonstrated small acute left insular cortical infarct extending into the frontal dove radiata. Punctate chronic left posterior frontal cortical infarct. Mild periventricular chronic microvascular ischemic changes. Also brain MRA done and showed the intrasylvian branches of the middle cerebral arteries appear mildly asymmetric with mild paucity of left sided branches suggestive of occlusion which may in part be chronic. CVA may be secondary to Eliquis noncompliance. Patient seen on medical floor and more awake as well as alert during my interaction with her. cardiology note reviewed, Eliquis restarted. There is still small chance of bleeding but with risk for subsequent thromboembolic event, benefit of restarting anticoagulation outweighs risk at this point. Carotid Dopplers reviewed and without hemodynamically significant stenosis, echo reviewed and showed ejection fraction 45% and mildly reduced left ventricular function. Speech more fluent during my encounter with her today, she reports feeling well and does not want to be in hospital. Dispo planning. Active Medications Apixaban (Eliquis -) 2.5 mg PO BID [facility] Last Admin: 06/17/20 22:39 Dose: 2.5 mg Documented by: Aspirin (Asa -) 81 mg PO DAILY [facility] Last Admin: 06/17/20 10:04 Dose: 81 mg Documented by: Atorvastatin Calcium (Lipitor -) 80 mg PO HS [facility] Last Admin: 06/17/20 22:39 Dose: 80 mg Documented by: Benztropine Mesylate (Cogentin -) 0.5 mg PO BID [facility] Last Admin: 06/17/20 22:40 Dose: 0.5 mg Documented by: Carbidopa/Levodopa (Sinemet 25/100 -) 1 each PO TID [facility] Last Admin: 06/18/20 06:07 Dose: 1 each Documented by: Famotidine (Acid Internet Security Specialist) 10 mg PO DAILY [facility] Last Admin: 06/17/20 10:04 Dose: 10 mg Documented by: Furosemide (Lasix -) 20 mg PO DAILY [facility] Last Admin: 06/17/20 10:05 Dose: 20 mg Documented by: Insulin Aspart (Novolog Vial Sliding Scale -) 1 vial SQ ACHS [facility]; Protocol Last Admin: 06/18/20 06:22 Dose: 2 units Documented by: Insulin Detemir (Levemir Vial) 5 units SQ AM [facility] Last Admin: 06/18/20 06:22 Dose: 5 units Documented by: Metoprolol Succinate (Toprol Xl -) 100 mg PO DAILY [facility] Last Admin: 06/17/20 10:03 Dose: 100 mg Documented by: Tiotropium [place] (Spiriva Respimat) 2 puff IH DAILY [facility] Last Admin: 06/17/20 10:08 Dose: 2 puff Documented by: PHYSICAL EXAMINATION Vital Signs Period Temp Pulse Resp BP Sys/Castillo Pulse Ox Last 24 Hr 97.5 F-98.4 F 87-106 18-20 100-140/50-107 99-99 GENERAL: Awake, alert, and fully oriented, in no acute distress. HEAD: Normal with no signs of trauma. EYES: Pupils equal, round and reactive to light, extraocular movements intact, sclera anicteric, conjunctiva clear. No lid lag. EARS, NOSE, THROAT: Ears normal, nares patent, oropharynx clear without exudates. Moist mucous membranes. NECK: Normal range of motion, supple without lymphadenopathy, JVD, or masses. LUNGS: Breath sounds equal, clear to auscultation bilaterally. No wheezes, and no crackles. No accessory muscle use. HEART: Regular rate and rhythm, normal S1 and S2 without murmur, rub or gallop. ABDOMEN: Soft, nontender, not distended, normoactive bowel sounds, no guarding, no rebound, no masses. No hepatomegaly or splenomegaly. MUSCULOSKELETAL: Normal range of motion at all joints. No bony deformities or tenderness. No CVA tenderness. UPPER EXTREMITIES: 2+ pulses, warm, well-perfused. No cyanosis. No clubbing. No peripheral edema. LOWER EXTREMITIES: 2+ pulses, warm, well-perfused. No calf tenderness. No peripheral edema. NEUROLOGICAL: Speech difficulty, slurring, some aphasia, moves extremities grossly but not participating confrontation testing, sensory intact, gait deferred PSYCHIATRIC: Cooperative. Good eye contact. Appropriate mood and affect. SKIN: Warm, dry, normal turgor, no rashes or lesions noted, normal capillary refill. CBCD WBC 7.0 K/mm3 (4.0-10.0) 06/18/20 07:00 RBC 4.78 M/mm3 (3.60-5.2) 06/18/20 07:00 Hgb 12.8 GM/dL (10.7-15.3) 06/18/20 07:00 Hct 39.5 % (32.4-45.2) 06/18/20 07:00 MCV 82.7 fl (80-96) 06/18/20 07:00 MCHC 32.3 g/dl (32.0-36.0) 06/18/20 07:00 RDW 16.8 % (11.6-15.6) H 06/18/20 07:00 Plt Count 259 K/MM3 (134-434) 06/18/20 07:00 MPV 9.1 fl (7.5-11.1) 06/18/20 07:00 CMP Sodium 137 mmol/L (136-145) 06/18/20 07:00 Potassium 4.0 mmol/L (3.5-5.1) 06/18/20 07:00 Chloride 104 mmol/L (98-107) 06/18/20 07:00 Carbon Dioxide 25 mmol/L (21-32) 06/18/20 07:00 Anion Gap 8 MMOL/L (8-16) 06/18/20 07:00 BUN 18.4 mg/dL (7-18) H 06/18/20 07:00 Creatinine 0.9 mg/dL (0.55-1.3) 06/18/20 07:00 Calcium 9.0 mg/dL (8.5-10.1) 06/18/20 07:00 Total Bilirubin 1.5 mg/dL (0.2-1) H 06/18/20 07:00 AST 19 U/L (15-37) 06/18/20 07:00 ALT 8 U/L (13-61) L 06/18/20 07:00 Alkaline Phosphatase 75 U/L (45-117) 06/18/20 07:00 Total Protein 7.8 g/dl (6.4-8.2) 06/18/20 07:00 Albumin 3.0 g/dl (3.4-5.0) L 06/18/20 07:00 ASSESSMENT/PLAN: 69yo female w/ PMH of tardive dyskinesia, Parkinsons disease, afib (has not taken eliquis for past week due to refill issue), CAD s/p CABG, cardiac arrest s/p ROSC, DM, HTN, HLD, CHF, STEMI w/ use of IABP, splenic infarct, Mitral regurgitation s/p mitral-clip brought to ED by family after they noticed slurred speech and facial droop. Pt currently AOx2 (not time) and endorses pain in her knees bilaterally. head CT performed and showed no acute intracranial pathology, generalized cerebral atrophy with no interval change since prior CT exam of 12/20/2019. Brain MRI completed and demonstrated small acute left insular cortical infarct extending into the frontal dove radiata. Punctate chronic left posterior frontal cortical infarct. Mild periventricular chronic microvascular ischemic changes. Also brain MRA done and showed the intrasylvian branches of the middle cerebral arteries appear mildly asymmetric with mild paucity of left sided branches suggestive of occlusion which may in part be chronic. CVA may be secondary to Eliquis noncompliance. Patient seen on medical floor and more awake as well as alert during my interaction with her. cardiology note reviewed, Eliquis restarted. There is still small chance of bleeding but with risk for subsequent thromboembolic event, benefit of restarting anticoagulation outweighs risk at this point. LDL 126, increased statin to 40mg, primry team increased to 80. goal LDL <70 in CVA. Physical therapy as tolerated. Continue Sinemet and Cogentin for Parkinson's disease. monitor blood pressure, goal < 140/90. Monitor diabetes, continue metformin. Cardiology note reviewed. Speech more fluent during my encounter with her today, she reports feeling well and does not want to be in hospital. Dispo planning as per primary team.
[2020-06-18] MEDS: APIXABAN 2.5 MG TABLET PO SCH ×2 (10:42→21:32)
[2020-06-18] MEDS: FUROSEMIDE 20 MG TABLET (FP) PO SCH (10:42)
[2020-06-18] MEDS: FAMOTIDINE 10 MG TABLET PO SCH (10:42)
[2020-06-18] MEDS: BENZTROPINE MESYLATE 0.5 MG TABLET (FP) PO SCH ×2 (10:42→21:32)
[2020-06-18] MEDS: ASPIRIN 81 MG CHEWABLE TABLETS PO SCH (10:42)
[2020-06-18] MEDS: TIOTROPIUM BROMIDE 2.5 MCG (SPIRIVA) RESPIMAT INHALER IH SCH (10:42)
--- NOTE | 2020-06-18 11:04 | PN ---
Progress Note, [facility] - Note Progress Note: Selected Entries 06/16/20 06/16/20 06/16/20 02:00 05:53 09:00 Temperature 97.6 F 98.2 F 97.4 F L Pulse Rate 93 H 84 89 Blood Pressure 120/73 120/76 114/63 Laboratory Tests 06/14/20 06/16/20 23:20 06:42 WBC 8.3 COVID-19 ([facility]) Pending Selected Entries 06/16/20 06/16/20 06/16/20 11:05 15:00 18:00 Breakfast 50% Diet Tolerated Well Well Fair Lunch 50% Supper 50% Temperature Pulse Rate Blood Pressure 06/17/20 06/17/20 06/17/20 02:02 05:33 09:00 Breakfast Diet Tolerated Lunch Supper Temperature 97.5 F L 98.8 F 98.4 F Pulse Rate 75 82 95 H Blood Pressure 130/65 119/73 116/78 Laboratory Tests 06/14/20 06/17/20 06/17/20 23:15 05:38 05:38 WBC 7.6 PT with INR 13.10 H 15.40 H INR 1.11 H 1.30 H Speech intelligibility improving, more precise, although accept is sometimes hard to decipher and pt forgets and speaks Kazakh instead of Cypriot intermi ttently Pt asking to go to "diagnostic center for her swallowing" She does not recall mbs performed. Overtly tolerating diet well. On puree/nectar Pt can tolerate dys ground/thin based on mbs- Consider upgrade Suggest trial of dysphagia Chopped/thin/verbal cues to take small bites, chew well, swallow before next trial RD f/u -family education re diet modification at home
[2020-06-18 14:34] VITALS: BMI 27.6
[2020-06-18] MEDS: ATORVASTATIN CA 80 MG TABLET (FP) PO SCH (21:32)
[2020-06-19] MEDS: ACETAMINOPHEN 500 MG TABLET (FP) PO PRN (01:47)
[2020-06-19] MEDS: INSULIN SLIDING SCALE (NOVOLOG) 1 VIAL SQ SCH ×4 (06:06→21:30)
[2020-06-19] MEDS: CARBIDOPA/LEVODOPA 25/100 TABLET (FP) PO SCH ×3 (06:07→21:05)
[2020-06-19] MEDS: INSULIN (LEVEMIR) 100 UNITS/ML UNITS SQ SCH (06:07)
--- NOTE | 2020-06-19 07:14 | DS ---
Physical Exam: SUBJECTIVE: Patient seen and examined . No complaints offered. Medically stable for dc home with son OBJECTIVE: Vital Signs Period Temp Pulse Resp BP Sys/Castillo Pulse Ox Last 24 Hr 98.0 F-98.6 F 95-117 18-20 115-133/72-94 96-98 PHYSICAL EXAM Constitutional: Yes: Well Nourished, No Distress, Calm Eyes: Yes: Conjunctiva Clear, EOM Intact, Other (facial droop) HENT: Yes: WNL, Atraumatic, Normocephalic Neck: Yes: WNL, Supple, Trachea Midline Cardiovascular: Yes: WNL, Regular Rate and Rhythm Respiratory: Yes: WNL, Regular, CTA Bilaterally Gastrointestinal: Yes: WNL, Normal Bowel Sounds Genitourinary: Yes: WNL Breast(s): Yes: WNL Musculoskeletal: Yes: Muscle Weakness (right upper extrem, tremors noted to both UE) Extremities: Yes: WNL Edema: No Peripheral Pulses WNL: Yes Peripheral Pulses: Left Radial: 2+, Right Radial: 2+, Left Doralis Pedis: 2+, Right Dorsalis Pedis: 2+, Left Femoral: 2+, Right Femoral: 2+ Integumentary: Yes: WNL Neurological: Yes: Alert, Ataxia imrpoving, Dysarthria, Facial Droop, Tremors, Gait improving , Weakness improving ...Motor Strength: RUE (4/5) Psychiatric: Yes: Alert LABS Laboratory Results - last 24 hr 06/18/20 06/18/20 06/18/20 07:00 07:00 12:21 WBC 7.0 RBC 4.78 Hgb 12.8 Hct 39.5 MCV 82.7 MCH 26.7 MCHC 32.3 RDW 16.8 H Plt Count 259 MPV 9.1 Absolute Neuts (auto) 4.5 Neutrophils % 63.8 Lymphocytes % 26.5 Monocytes % 7.9 Eosinophils % 1.0 Basophils % 0.8 Nucleated RBC % 0 Sodium 137 Potassium 4.0 Chloride 104 Carbon Dioxide 25 Anion Gap 8 BUN 18.4 H Creatinine 0.9 Est GFR (CKD-EPI)AfAm 75.61 Est GFR (CKD-EPI)NonAf 65.24 POC Glucometer 110 Random Glucose 149 H Calcium 9.0 Magnesium 1.9 Total Bilirubin 1.5 H AST 19 ALT 8 L Alkaline Phosphatase 75 Total Protein 7.8 Albumin 3.0 L 06/18/20 06/19/20 20:54 05:50 WBC RBC Hgb Hct MCV MCH MCHC RDW Plt Count MPV Absolute Neuts (auto) Neutrophils % Lymphocytes % Monocytes % Eosinophils % Basophils % Nucleated RBC % Sodium Potassium Chloride Carbon Dioxide Anion Gap BUN Creatinine Est GFR (CKD-EPI)AfAm Est GFR (CKD-EPI)NonAf POC Glucometer 130 128 Random Glucose Calcium Magnesium Total Bilirubin AST ALT Alkaline Phosphatase Total Protein Albumin HOSPITAL COURSE: Date of Admission:06/14/20 Date of Discharge: 06/19/20 Problem List - Problems (1) Hx of CABG Assessment/Plan: c/w eliquis,asa Code(s): Z95.1 - PRESENCE OF AORTOCORONARY BYPASS GRAFT (2) Cardiac arrest with successful resuscitation Code(s): I46.9 - CARDIAC ARREST, CAUSE UNSPECIFIED (3) STEMI (ST elevation myocardial infarction) Assessment/Plan: previous STEMI c/w metoprolol Code(s): I21.3 - ST ELEVATION (STEMI) MYOCARDIAL INFARCTION OF [facility] SITE (4) Atrial fibrillation Assessment/Plan: rate controlled c/w metoprolol c/w eliquis-no bleed on MRI-home dose 2.5mg will c/w dose Code(s): I48.91 - UNSPECIFIED ATRIAL FIBRILLATION Qualifiers: Atrial fibrillation type: unspecified Qualified Code(s): I48.91 - Unspecified atrial fibrillation (5) Cerebrovascular accident (CVA) Assessment/Plan: neuorology following c/w eliquis c/w PT carotid dopplers nml TTE noted and cardiology following dispo to home Code(s): I63.9 - CEREBRAL INFARCTION, UNSPECIFIED Qualifiers: CVA mechanism: unspecified Qualified Code(s): I63.9 - Cerebral infarction, unspecified (6) Parkinson disease Assessment/Plan: c/w sinemet c/w PT supportive care Code(s): G20 - PARKINSON'S DISEASE (7) Prophylactic measure Assessment/Plan: FEN Fluids: adequate PO intake Electrolytes: monitored & repleted as needed Nutrition: dysphagia diet DVT eliquis Dispo Maintain as inpatient full code discharge planning home to [facility] Code(s): Z29.9 - ENCOUNTER FOR PROPHYLACTIC MEASURES, UNSPECIFIED (8) HTN (hypertension) Assessment/Plan: normotensive c/w metoprolol c/w diltiazem Code(s): I10 - ESSENTIAL (PRIMARY) HYPERTENSION Qualifiers: Hypertension type: unspecified Qualified Code(s): I10 - Essential (primary) hypertension (9) Hyperlipidemia Assessment/Plan: c/w atrivastatin at increased dose Code(s): E78.5 - HYPERLIPIDEMIA, UNSPECIFIED Qualifiers: Hyperlipidemia type: pure hypercholesterolemia Qualified Code(s): E78.00 - Pure hypercholesterolemia, unspecified; E78.0 - Pure hypercholesterolemia (10) S/P mitral valve repair Assessment/Plan: TTE noted Code(s): Z98.890 - OTHER SPECIFIED POSTPROCEDURAL STATES (11) Diastolic CHF Assessment/Plan: appears euvolemic c/w lasix Code(s): I50.30 - UNSPECIFIED DIASTOLIC (CONGESTIVE) HEART FAILURE (12) Diabetes Assessment/Plan: BGM AC/HS with novolog sliding scale diabetic diet c/w levemir Code(s): E11.9 - TYPE 2 DIABETES MELLITUS WITHOUT COMPLICATIONS (13) Dysphagia Assessment/Plan: STORE STOCK ASSOCIATE following Recommend trial of dysphagia Chopped/thin/verbal cues to take small bites, chew well, swallow before next trial Code(s): R13.10 - DYSPHAGIA, UNSPECIFIED discharge to home to [facility] Minutes to complete discharge: 45 Discharge Summary Problems reviewed: Yes Reason For Visit: CEREBROVASCULAR CVA Current Active Problems Atrial fibrillation (Acute) Cardiac arrest with successful resuscitation (Acute) Cerebrovascular accident (CVA) (Acute) Dysphagia (Acute) Hx of CABG (Acute) STEMI (ST elevation myocardial infarction) (Acute) Hospital Course: HOSPITAL COURSE: Date of Admission:06/14/20 Date of Discharge: 06/19/20 Problem List - Problems (1) Hx of CABG Assessment/Plan: c/w eliqusalena,asa Code(s): Z95.1 - PRESENCE OF AORTOCORONARY BYPASS GRAFT (2) Cardiac arrest with successful resuscitation Code(s): I46.9 - CARDIAC ARREST, CAUSE UNSPECIFIED (3) STEMI (ST elevation myocardial infarction) Assessment/Plan: previous STEMI c/w metoprolol Code(s): I21.3 - ST ELEVATION (STEMI) MYOCARDIAL INFARCTION OF [facility] SITE (4) Atrial fibrillation Assessment/Plan: rate controlled c/w metoprolol c/w eliquis-no bleed on MRI-home dose 2.5mg will c/w dose Code(s): I48.91 - UNSPECIFIED ATRIAL FIBRILLATION Qualifiers: Atrial fibrillation type: unspecified Qualified Code(s): I48.91 - Unspecified atrial fibrillation (5) Cerebrovascular accident (CVA) Assessment/Plan: neuorology following c/w eliquis c/w PT carotid dopplers nml TTE noted and cardiology following dispo to home Code(s): I63.9 - CEREBRAL INFARCTION, UNSPECIFIED Qualifiers: CVA mechanism: unspecified Qualified Code(s): I63.9 - Cerebral infarction, unspecified (6) Parkinson disease Assessment/Plan: c/w sinemet c/w PT supportive care Code(s): G20 - PARKINSON'S DISEASE (7) Prophylactic measure Assessment/Plan: FEN Fluids: adequate PO intake Electrolytes: monitored & repleted as needed Nutrition: dysphagia diet DVT eliquis Dispo Maintain as inpatient full code discharge planning home to [facility] Code(s): Z29.9 - ENCOUNTER FOR PROPHYLACTIC MEASURES, UNSPECIFIED (8) HTN (hypertension) Assessment/Plan: normotensive c/w metoprolol c/w diltiazem Code(s): I10 - ESSENTIAL (PRIMARY) HYPERTENSION Qualifiers: Hypertension type: unspecified Qualified Code(s): I10 - Essential (primary) hypertension (9) Hyperlipidemia Assessment/Plan: c/w atrivastatin at increased dose Code(s): E78.5 - HYPERLIPIDEMIA, UNSPECIFIED Qualifiers: Hyperlipidemia type: pure hypercholesterolemia Qualified Code(s): E78.00 - Pure hypercholesterolemia, unspecified; E78.0 - Pure hypercholesterolemia (10) S/P mitral valve repair Assessment/Plan: TTE noted Code(s): Z98.890 - OTHER SPECIFIED POSTPROCEDURAL STATES (11) Diastolic CHF Assessment/Plan: appears euvolemic c/w lasix Code(s): I50.30 - UNSPECIFIED DIASTOLIC (CONGESTIVE) HEART FAILURE (12) Diabetes Assessment/Plan: BGM AC/HS with novolog sliding scale diabetic diet c/w levemir Code(s): E11.9 - TYPE 2 DIABETES MELLITUS WITHOUT COMPLICATIONS (13) Dysphagia Assessment/Plan: STORE STOCK ASSOCIATE following Recommend trial of dysphagia Chopped/thin/verbal cues to take small bites, chew well, swallow before next trial Code(s): R13.10 - DYSPHAGIA, UNSPECIFIED discharge to home to [facility] Condition: Improved - Instructions Diet, Activity, Other Instructions: DISCHARGE YOUR VISIT You came to the hospital because had weakness and slurring of your speech. An MRI was done that revealed a stroke. Your strength and speech are slowing improving. With time and therapy you should continue to improve. It is important that you continue to take all your medications as scheduled. MEDICATIONS Please continue to take your home medications as prescribed. NEW aspirib 81 mg daily atorvastatin 80mg daily apixaban/eliquis 2.5mg twice daily DIET Continue your home diet ADDITIONAL CARE Please make an appointment to see your primary care provider, 2 week from today. Call the neurologist to follow your progress from the stroke. ADDITIONAL INFORMATION Please call 911 or come directly to the emergency department if you experience unusual headache, vision change, shortness of breath, chest pain, numbness, tingling, loss of alertness/awareness, loss of function, unusual bleeding or any alarming symptoms. Thank you for allowing me to care for you. Memo Christianson, [facility], [facility] [phone] Referrals: Dylan Ryan MD [Staff Physician] - (NEUROLOGY call for appointment to follow up after stroke) Eric Cifuentes MD [Staff Physician] - (RIVER GUIDE: call for appointment to follow up after stroke) Disposition: VNS/HOME HEALTH CARE - Home Medications Comprehensive Discharge Medication List: Ambulatory Orders Benztropine Mesylate [Cogentin -] 0.5 mg PO BID #60 tablet 12/26/19 Carbidopa/Levodopa 25/100 [Sinemet 25/100 -] 1 each PO TID #120 tablet 12/26/19 Diltiazem Cd [Cardizem Cd -] 180 mg PO DAILY #30 cap.cd.24h 01/14/20 Famotidine [Acid Channel Worker] 10 mg PO DAILY #30 tablet 01/14/20 Insulin (Levemir) [Levemir Vial] 5 units SQ AM #15 vial 01/14/20 Lisinopril [Prinivil] 2.5 mg PO DAILY #30 tablet 01/14/20 metFORMIN HCL [Metformin HCl ER] 500 mg PO DAILY #30 tab.er.24h 01/14/20 Tiotropium [place] [Spiriva] 2 puff IH DAILY 03/11/20 Apixaban [Eliquis -] 2.5 mg PO BID #60 tablet 03/12/20 Metoprolol Succinate [Toprol XL -] 25 mg PO DAILY #30 tab.sr.24h 03/12/20 Metoprolol Succinate [Toprol XL -] 100 mg PO DAILY #30 tab.sr.24h 03/12/20 Furosemide [Lasix -] 10 mg PO DAILY 06/14/20 Apixaban [Eliquis -] 2.5 mg PO BID #60 tablet 06/18/20 Aspirin [ASA -] 81 mg PO DAILY #30 tab.chew 06/18/20 Atorvastatin Ca [Lipitor] 80 mg PO HS #30 tablet 06/18/20 Insulin Sliding Scale [Novolog Vial Sliding Scale -] 1 vial SQ ACHS units 06/18/20 Tiotropium [place] [Spiriva Respimat] 2 puff IH DAILY inhaler 06/18/20 Problem List - Problems (1) Hx of CABG Code(s): Z95.1 - PRESENCE OF AORTOCORONARY BYPASS GRAFT (2) Cardiac arrest with successful resuscitation Code(s): I46.9 - CARDIAC ARREST, CAUSE UNSPECIFIED (3) STEMI (ST elevation myocardial infarction) Code(s): I21.3 - ST ELEVATION (STEMI) MYOCARDIAL INFARCTION OF [facility] SITE (4) Atrial fibrillation Code(s): I48.91 - UNSPECIFIED ATRIAL FIBRILLATION Qualifiers: Atrial fibrillation type: unspecified Qualified Code(s): I48.91 - Unspecified atrial fibrillation (5) Cerebrovascular accident (CVA) Code(s): I63.9 - CEREBRAL INFARCTION, UNSPECIFIED Qualifiers: CVA mechanism: unspecified Qualified Code(s): I63.9 - Cerebral infarction, unspecified (6) Parkinson disease Code(s): G20 - PARKINSON'S DISEASE (7) Prophylactic measure Code(s): Z29.9 - ENCOUNTER FOR PROPHYLACTIC MEASURES, UNSPECIFIED (8) HTN (hypertension) Code(s): I10 - ESSENTIAL (PRIMARY) HYPERTENSION Qualifiers: Hypertension type: unspecified Qualified Code(s): I10 - Essential (primary) hypertension (9) Hyperlipidemia Code(s): E78.5 - HYPERLIPIDEMIA, UNSPECIFIED Qualifiers: Hyperlipidemia type: pure hypercholesterolemia Qualified Code(s): E78.00 - Pure hypercholesterolemia, unspecified; E78.0 - Pure hypercholesterolemia (10) S/P mitral valve repair Code(s): Z98.890 - OTHER SPECIFIED POSTPROCEDURAL STATES (11) Diastolic CHF Code(s): I50.30 - UNSPECIFIED DIASTOLIC (CONGESTIVE) HEART FAILURE (12) Diabetes Code(s): E11.9 - TYPE 2 DIABETES MELLITUS WITHOUT COMPLICATIONS (13) Dysphagia Code(s): R13.10 - DYSPHAGIA, UNSPECIFIED This patient is new to me today: No Emergency Visit: Yes ED Registration Date: 06/14/20 Care time: The patient presented to the Emergency Department on the above date and was hospitalized for further evaluation of their emergent condition. Critical Care patient: No - Discharge Referral Referred to [facility] Med P.C.: No
[2020-06-19 07:19] LABS: EOS % 0.7 % (0-4.5); HEMATOCRIT 38.5 % (32.4-45.2); HEMOGLOBIN 12.5 GM/dL (10.7-15.3); LYMPH % 30.3 % (8-40); MCH 26.5 pg (25.7-33.7); MCHC 32.4 g/dl (32.0-36.0); MEAN PLT VOLUME 8.8 fl (7.5-11.1); MONO % 8.1 % (3.8-10.2); NEUT % 59.9 % (42.8-82.8); PLATELET COUNT 318 K/MM3 (134-434); RDW 16.6 % (11.6-15.6); WHITE BLOOD COUNT 8.2 K/mm3 (4.0-10.0)
[2020-06-19 08:03] LABS: BLOOD UREA NITROGEN 17.9 mg/dL (7-18); CALCIUM 9.1 mg/dL (8.5-10.1); CREATININE 0.9 mg/dL (0.55-1.3); MAGNESIUM 1.9 mg/dL (1.8-2.4); POTASSIUM 3.8 mmol/L (3.5-5.1); TOT PROT 7.6 g/dl (6.4-8.2)
[2020-06-19] MEDS: ASPIRIN 81 MG CHEWABLE TABLETS PO SCH (09:07)
[2020-06-19] MEDS: BENZTROPINE MESYLATE 0.5 MG TABLET (FP) PO SCH ×2 (09:07→21:05)
[2020-06-19] MEDS: FUROSEMIDE 20 MG TABLET (FP) PO SCH (09:07)
[2020-06-19] MEDS: APIXABAN 2.5 MG TABLET PO SCH ×2 (09:07→21:05)
[2020-06-19] MEDS: FAMOTIDINE 10 MG TABLET PO SCH (09:08)
[2020-06-19] MEDS: TIOTROPIUM BROMIDE 2.5 MCG (SPIRIVA) RESPIMAT INHALER IH SCH (09:08)
[2020-06-19] MEDS ORDERED: PT OWN MED DRAWER 7, Y5N ONE (20:20)
[2020-06-19] MEDS: ATORVASTATIN CA 80 MG TABLET (FP) PO SCH (21:05)
[2020-06-20] MEDS: CARBIDOPA/LEVODOPA 25/100 TABLET (FP) PO SCH ×3 (05:48→22:17)
[2020-06-20] MEDS: INSULIN SLIDING SCALE (NOVOLOG) 1 VIAL SQ SCH ×4 (06:19→22:17)
[2020-06-20] MEDS: INSULIN (LEVEMIR) 100 UNITS/ML UNITS SQ SCH (06:20)
[2020-06-20] MEDS: ASPIRIN 81 MG CHEWABLE TABLETS PO SCH (09:10)
[2020-06-20] MEDS: FUROSEMIDE 20 MG TABLET (FP) PO SCH (09:10)
[2020-06-20] MEDS: BENZTROPINE MESYLATE 0.5 MG TABLET (FP) PO SCH ×2 (09:10→22:17)
[2020-06-20] MEDS: APIXABAN 2.5 MG TABLET PO SCH ×2 (09:10→22:17)
[2020-06-20] MEDS: FAMOTIDINE 10 MG TABLET PO SCH (09:10)
[2020-06-20] MEDS: TIOTROPIUM BROMIDE 2.5 MCG (SPIRIVA) RESPIMAT INHALER IH SCH (09:11)
[2020-06-20] MEDS: ACETAMINOPHEN 500 MG TABLET (FP) PO PRN (10:16)
--- NOTE | 2020-06-20 11:59 | PN ---
Progress Note (short form) - Note Progress Note: Neurology CHIEF COMPLAINT: R facial droop PCP: Dr. Poncho Amaro ([facility]) HISTORY OF PRESENT ILLNESS: 69yo female w/ PMH of tardive dyskinesia, Parkinsons disease, afib (has not taken eliquis for past week due to refill issue), CAD s/p CABG, cardiac arrest s/p ROSC, DM, HTN, HLD, CHF, STEMI w/ use of IABP, splenic infarct, Mitral regurgitation s/p mitral-clip brought to ED by family after they noticed slurred speech and facial droop. Pt currently AOx2 (not time) and endorses pain in her knees bilaterally. head CT performed and showed no acute intracranial pathology, generalized cerebral atrophy with no interval change since prior CT exam of 12/20/2019. Brain MRI completed and demonstrated small acute left insular cortical infarct extending into the frontal dove radiata. Punctate chronic left posterior frontal cortical infarct. Mild periventricular chronic microvascular ischemic changes. Also brain MRA done and showed the intrasylvian branches of the middle cerebral arteries appear mildly asymmetric with mild paucity of left sided branches suggestive of occlusion which may in part be chronic. CVA may be secondary to Eliquis noncompliance. Patient seen on medical floor and more awake as well as alert during my interaction with her. cardiology note reviewed, Eliquis restarted. There is still small chance of bleeding but with risk for subsequent thromboembolic event, benefit of restarting anticoagulation outweighs risk at this point. Carotid Dopplers reviewed and without hemodynamically significant stenosis, echo reviewed and showed ejection fraction 45% and mildly reduced left ventricular function. Speech more fluent during my remains improved, patient pending discharge per notes. No objection to this. Active Medications Acetaminophen (Tylenol -) 500 mg PO Q4H PRN PRN Reason: PAIN Last Admin: 06/20/20 10:16 Dose: 500 mg Documented by: Apixaban (Eliquis -) 2.5 mg PO BID [facility] Last Admin: 06/20/20 09:10 Dose: 2.5 mg Documented by: Aspirin (Asa -) 81 mg PO DAILY [facility] Last Admin: 06/20/20 09:10 Dose: 81 mg Documented by: Atorvastatin Calcium (Lipitor -) 80 mg PO HS [facility] Last Admin: 06/19/20 21:05 Dose: 80 mg Documented by: Benztropine Mesylate (Cogentin -) 0.5 mg PO BID [facility] Last Admin: 06/20/20 09:10 Dose: 0.5 mg Documented by: Carbidopa/Levodopa (Sinemet 25/100 -) 1 each PO TID [facility] Last Admin: 06/20/20 05:48 Dose: 1 each Documented by: Famotidine (Acid Record Maker) 10 mg PO DAILY [facility] Last Admin: 06/20/20 09:10 Dose: 10 mg Documented by: Furosemide (Lasix -) 20 mg PO DAILY [facility] Last Admin: 06/20/20 09:10 Dose: 20 mg Documented by: Insulin Aspart (Novolog Vial Sliding Scale -) 1 vial SQ ACHS [facility]; Protocol Last Admin: 06/20/20 10:54 Dose: 2 units Documented by: Insulin Detemir (Levemir Vial) 5 units SQ AM [facility] Last Admin: 06/20/20 06:20 Dose: 5 units Documented by: Metoprolol Succinate (Toprol Xl -) 100 mg PO DAILY [facility] Last Admin: 06/20/20 09:10 Dose: 100 mg Documented by: Tiotropium [place] (Spiriva Respimat) 2 puff IH DAILY [facility] Last Admin: 06/20/20 09:11 Dose: 2 puff Documented by: PHYSICAL EXAMINATION Vital Signs Period Temp Pulse Resp BP Sys/Castillo Pulse Ox Last 24 Hr 97.9 F-98.8 F 82-113 18-18 108-124/62-70 95-96 GENERAL: Awake, alert, and fully oriented, in no acute distress. HEAD: Normal with no signs of trauma. EYES: Pupils equal, round and reactive to light, extraocular movements intact, sclera anicteric, conjunctiva clear. No lid lag. EARS, NOSE, THROAT: Ears normal, nares patent, oropharynx clear without exudates. Moist mucous membranes. NECK: Normal range of motion, supple without lymphadenopathy, JVD, or masses. LUNGS: Breath sounds equal, clear to auscultation bilaterally. No wheezes, and no crackles. No accessory muscle use. HEART: Regular rate and rhythm, normal S1 and S2 without murmur, rub or gallop. ABDOMEN: Soft, nontender, not distended, normoactive bowel sounds, no guarding, no rebound, no masses. No hepatomegaly or splenomegaly. MUSCULOSKELETAL: Normal range of motion at all joints. No bony deformities or tenderness. No CVA tenderness. UPPER EXTREMITIES: 2+ pulses, warm, well-perfused. No cyanosis. No clubbing. No peripheral edema. LOWER EXTREMITIES: 2+ pulses, warm, well-perfused. No calf tenderness. No per ipheral edema. NEUROLOGICAL: Speech difficulty, slurring, some aphasia, moves extremities grossly but not participating confrontation testing, sensory intact, gait deferred PSYCHIATRIC: Cooperative. Good eye contact. Appropriate mood and affect. SKIN: Warm, dry, normal turgor, no rashes or lesions noted, normal capillary refill. CBCD WBC 8.2 K/mm3 (4.0-10.0) 06/19/20 06: RBC 4.70 M/mm3 (3.60-5.2) 06/19/20 06: Hgb 12.5 GM/dL (10.7-15.3) 06/19/20 06: Hct 38.5 % (32.4-45.2) 06/19/20 06: MCV 82.0 fl (80-96) 06/19/20 06: MCHC 32.4 g/dl (32.0-36.0) 06/19/20 06: RDW 16.6 % (11.6-15.6) H 06/19/20 06: Plt Count 318 K/MM3 (134-434) D 06/19/20 06:29 MPV 8.8 fl (7.5-11.1) 06/19/20 06:29 CMP Sodium 142 mmol/L (136-145) 06/19/20 06: Potassium 3.8 mmol/L (3.5-5.1) 06/19/20 06:29 Chloride 110 mmol/L (98-107) H 06/19/20 06:29 Carbon Dioxide 25 mmol/L (21-32) 06/19/20 06:29 Anion Gap 7 MMOL/L (8-16) L 06/19/20 06:29 BUN 17.9 mg/dL (7-18) 06/19/20 06:29 Creatinine 0.9 mg/dL (0.55-1.3) 06/19/20 06:29 Random Glucose 137 mg/dL (74-106) H 06/19/20 06:29 Calcium 9.1 mg/dL (8.5-10.1) 06/19/20 06:29 Total Bilirubin 1.0 mg/dL (0.2-1) 06/19/20 06:29 AST 16 U/L (15-37) 06/19/20 06:29 ALT 9 U/L (13-61) L 06/19/20 06:29 Alkaline Phosphatase 75 U/L (45-117) 06/19/20 06:29 Total Protein 7.6 g/dl (6.4-8.2) 06/19/20 06:29 Albumin 3.0 g/dl (3.4-5.0) L 06/19/20 06:29 CARDIAC ENZYMES Creatine Kinase 60 U/L (26-192) 06/14/20 23:15 Troponin I 0.37 ng/ml (0.00-0.05) H 06/15/20 06:25 ASSESSMENT/PLAN: 69yo female w/ PMH of tardive dyskinesia, Parkinsons disease, afib (has not taken eliquis for past week due to refill issue), CAD s/p CABG, cardiac arrest s/p ROSC, DM, HTN, HLD, CHF, STEMI w/ use of IABP, splenic infarct, Mitral regurgitation s/p mitral-clip brought to ED by family after they noticed slurred speech and facial droop. Pt currently AOx2 (not time) and endorses pain in her knees bilaterally. head CT performed and showed no acute intracranial pathology, generalized cerebral atrophy with no interval change since prior CT exam of 12/20/2019. Brain MRI completed and demonstrated small acute left insular cortical infarct extending into the frontal dove radiata. Punctate chronic left posterior frontal cortical infarct. Mild periventricular chronic microvascular ischemic changes. Also brain MRA done and showed the intrasylvian branches of the middle cerebral arteries appear mildly asymmetric with mild paucity of left sided branches suggestive of occlusion which may in part be chronic. CVA may be secondary to Eliquis noncompliance. Patient seen on medical floor and more awake as well as alert during my interaction with her. cardiology note reviewed, Eliquis restarted. There is still small chance of bleeding but with risk for subsequent thromboembolic event, benefit of restarting anticoagulation outweighs risk at this point. LDL 126, increased statin to 40mg, primry team increased to 80. goal LDL <70 in CVA. Physical therapy as tolerated. Continue Sinemet and Cogentin for Parkinson's disease. monitor blood pressure, goal < 140/90. Monitor diabetes, continue metformin. Cardiology note reviewed. Speech imrproved, neurologically stable for d/c at this time.
--- NOTE | 2020-06-20 12:56 | PN ---
Physical Exam: SUBJECTIVE: Patient seen and examined, pt seen at bedside, discharged yesterday, message left for son, no return call pt c/o constipation, no BM x 5 days, will order laxatives, denies n/v, abd pain. OBJECTIVE: Vital Signs Period Temp Pulse Resp BP Sys/Castillo Pulse Ox Last 24 Hr 97.9 F-98.8 F 82-113 18-18 108-124/62-70 95-96 GENERAL: The patient is awake, alert, and fully oriented, in no acute distress. HEAD: Normal with no signs of trauma. EYES: PERRL, extraocular movements intact, sclera anicteric, conjunctiva clear. No ptosis. ENT: Ears normal, nares patent, oropharynx clear without exudates, moist mucous membranes. NECK: Trachea midline, full range of motion, supple. LUNGS: Breath sounds equal, clear to auscultation bilaterally, no wheezes, no crackles, no accessory muscle use. HEART: Regular rate and rhythm, S1, S2 without murmur, rub or gallop. ABDOMEN: Soft, nontender, nondistended, normoactive bowel sounds, no guarding, no rebound, no hepatosplenomegaly, no masses. EXTREMITIES: 2+ pulses, warm, well-perfused, no edema. NEUROLOGICAL: Cranial nerves II through XII grossly intact. Normal speech, gait not observed. PSYCH: Normal mood, normal affect. SKIN: Warm, dry, normal turgor, no rashes or lesions noted Laboratory Results - last 24 hr 06/19/20 06/19/20 06/20/20 17:24 21:28 05:25 POC Glucometer 135 135 121 06/20/20 10:53 POC Glucometer 169 Active Medications Generic Name Dose Route Start Last Admin Trade Name Freq PRN Reason Stop Dose Admin Acetaminophen 500 mg 06/19/20 01:34 06/20/20 10:16 Tylenol - PO 500 mg Q4H PRN Administration PAIN Apixaban 2.5 mg 06/16/20 12:10 06/20/20 09:10 Eliquis - PO 2.5 mg BID JESSICA Administration Aspirin 81 mg 06/15/20 10:00 06/20/20 09:10 Asa - PO 81 mg DAILY JESSICA Administration Atorvastatin Calcium 80 mg 06/15/20 22:00 06/19/20 21:05 Lipitor - PO 80 mg HS JESSICA Administration Benztropine Mesylate 0.5 mg 06/15/20 10:00 06/20/20 09:10 Cogentin - PO 0.5 mg BID JESSICA Administration Carbidopa/Levodopa 1 each 06/15/20 07:15 06/20/20 05:48 Sinemet 25/100 - PO 1 each TID JESSICA Administration Famotidine 10 mg 06/15/20 10:00 06/20/20 09:10 Acid Caramel Cutter Machine PO 10 mg DAILY JESSICA Administration Furosemide 20 mg 06/15/20 11:29 06/20/20 09:10 Lasix - PO 20 mg DAILY JESSICA Administration Insulin Aspart 1 vial 06/15/20 11:00 06/20/20 10:54 Novolog Vial Sliding Scale - SQ 2 units ACHS JESSICA Administration Protocol Insulin Detemir 5 units 06/16/20 07:00 06/20/20 06:20 Levemir Vial SQ 5 units AM JESSICA Administration Metoprolol Succinate 100 mg 06/15/20 10:00 06/20/20 09:10 Toprol Xl - PO 100 mg DAILY JESSICA Administration Tiotropium [place] 2 puff 06/15/20 10:00 06/20/20 09:11 Spiriva Respimat IH 2 puff DAILY JESSICA Administration ASSESSMENT/PLAN: # Cerebrovascular accident (CVA) Assessment/Plan: neuorology following- stable for dc c/w eliquis c/w PT carotid dopplers nml TTE noted and cardiology following dispo to home Code(s): I63.9 - CEREBRAL INFARCTION, UNSPECIFIED Qualifiers: CVA mechanism: unspecified Qualified Code(s): I63.9 - Cerebral infarction, unspecified #Constipation -colace, miralax started #Hx of CABG Assessment/Plan: c/w charyqusalena,asa Code(s): Z95.1 - PRESENCE OF AORTOCORONARY BYPASS GRAFT # Cardiac arrest with successful resuscitation Code(s): I46.9 - CARDIAC ARREST, CAUSE UNSPECIFIED #STEMI (ST elevation myocardial infarction) Assessment/Plan: previous STEMI c/w metoprolol Code(s): I21.3 - ST ELEVATION (STEMI) MYOCARDIAL INFARCTION OF [facility] SITE #Atrial fibrillation Assessment/Plan: rate controlled c/w metoprolol c/w eliquis-no bleed on MRI-home dose 2.5mg will c/w dose Code(s): I48.91 - UNSPECIFIED ATRIAL FIBRILLATION Qualifiers: Atrial fibrillation type: unspecified Qualified Code(s): I48.91 - Unspecified atrial fibrillation # Parkinson disease Assessment/Plan: c/w sinemet c/w PT supportive care Code(s): G20 - PARKINSON'S DISEASE # Prophylactic measure Assessment/Plan: FEN Fluids: adequate PO intake Electrolytes: monitored & repleted as needed Nutrition: dysphagia diet DVT eliquis Visit type - Emergency Visit Emergency Visit: Yes ED Registration Date: 06/14/20 Care time: The patient presented to the Emergency Department on the above date and was hospitalized for further evaluation of their emergent condition. - New Patient This patient is new to me today: Yes Date on this admission: 06/20/20 - Critical Care Critical Care patient: No - Discharge Referral Referred to [facility] Med P.C.: No - Medication Review Med list reviewed for High Risk Meds patients 65 and older: No
[2020-06-20] MEDS ORDERED: DOCUSATE SODIUM 100 MG CAPSULE (FP) PO PRN (13:00)
[2020-06-20] MEDS: POLYETHYLENE GLYCOL 3350 119 GM BTL PO SCH (13:10)
[2020-06-20] MEDS ORDERED: PT OWN MED DRAWER 7, Y5N ONE ×2 (18:31→22:00)
[2020-06-20] MEDS: ATORVASTATIN CA 80 MG TABLET (FP) PO SCH (22:17)
[2020-06-21] MEDS: INSULIN SLIDING SCALE (NOVOLOG) 1 VIAL SQ SCH ×4 (06:36→21:35)
[2020-06-21] MEDS: CARBIDOPA/LEVODOPA 25/100 TABLET (FP) PO SCH ×3 (06:41→21:15)
[2020-06-21] MEDS: INSULIN (LEVEMIR) 100 UNITS/ML UNITS SQ SCH (06:41)
[2020-06-21 07:39] LABS: BASO % 0.6 % (0-2.0); EOS % 0.6 % (0-4.5); LYMPH % 22.5 % (8-40); MCH 27.2 pg (25.7-33.7); MCHC 32.4 g/dl (32.0-36.0); MEAN CELL VOLUME 83.7 fl (80-96); MEAN PLT VOLUME 9.5 fl (7.5-11.1); MONO % 6.4 % (3.8-10.2); NEUT % 69.9 % (42.8-82.8); PLATELET COUNT 302 K/MM3 (134-434); RBC 4.78 M/mm3 (3.60-5.2); RDW 17.2 % (11.6-15.6); WHITE BLOOD COUNT 8.6 K/mm3 (4.0-10.0)
[2020-06-21 08:09] LABS: ALBUMIN 3.3 g/dl (3.4-5.0); BILIRUBIN,TOTAL 1.2 mg/dL (0.2-1); CALCIUM 9.3 mg/dL (8.5-10.1); CREATININE 0.9 mg/dL (0.55-1.3); POTASSIUM 4.6 mmol/L (3.5-5.1); TOT PROT 8.2 g/dl (6.4-8.2)
[2020-06-21] MEDS: ACETAMINOPHEN 500 MG TABLET (FP) PO PRN (10:25)
[2020-06-21] MEDS: ASPIRIN 81 MG CHEWABLE TABLETS PO SCH (10:26)
[2020-06-21] MEDS: APIXABAN 2.5 MG TABLET PO SCH ×2 (10:26→21:14)
[2020-06-21] MEDS: BENZTROPINE MESYLATE 0.5 MG TABLET (FP) PO SCH ×2 (10:26→21:14)
[2020-06-21] MEDS: FUROSEMIDE 20 MG TABLET (FP) PO SCH (10:26)
[2020-06-21] MEDS: TIOTROPIUM BROMIDE 2.5 MCG (SPIRIVA) RESPIMAT INHALER IH SCH ×2 (10:32→12:19)
[2020-06-21] MEDS: POLYETHYLENE GLYCOL 3350 119 GM BTL PO SCH (10:32)
[2020-06-21] MEDS: FAMOTIDINE 10 MG TABLET PO SCH (10:32)
--- NOTE | 2020-06-21 12:24 | PN ---
Progress Note (short form) - Note Progress Note: S: No complaints. No events. O: Vital Signs Temperature 98.2 F 06/21/20 10:00 Pulse Rate 109 H 06/21/20 10:00 Respiratory Rate 18 06/21/20 10:00 Blood Pressure 118/63 06/21/20 10:00 O2 Sat by Pulse Oximetry (%) 97 06/21/20 10:00 PE: Gen: NAD, awake, alert LUNG: CTA b/l without wheezes or rales CARD: Regular rate, irregularly irregular, no murmurs appreciated ABD: Soft, Nt/ND, + BS CBC, BMP 06/21/20 05:50 06/21/20 05:50 Active Medications Acetaminophen (Tylenol -) 500 mg PO Q4H PRN PRN Reason: PAIN Last Admin: 06/21/20 10:25 Dose: 500 mg Documented by: Apixaban (Eliquis -) 2.5 mg PO BID [facility] Last Admin: 06/21/20 10:26 Dose: 2.5 mg Documented by: Aspirin (Asa -) 81 mg PO DAILY [facility] Last Admin: 06/21/20 10:26 Dose: 81 mg Documented by: Atorvastatin Calcium (Lipitor -) 80 mg PO HS [facility] Last Admin: 06/20/20 22:17 Dose: 80 mg Documented by: Benztropine Mesylate (Cogentin -) 0.5 mg PO BID [facility] Last Admin: 06/21/20 10:26 Dose: 0.5 mg Documented by: Carbidopa/Levodopa (Sinemet 25/100 -) 1 each PO TID [facility] Last Admin: 06/21/20 06:41 Dose: 1 each Documented by: Docusate Sodium (Colace -) 100 mg PO BID PRN PRN Reason: CONSTIPATION Famotidine (Acid Software Test Manager) 10 mg PO DAILY [facility] Last Admin: 06/21/20 10:32 Dose: 10 mg Documented by: Furosemide (Lasix -) 20 mg PO DAILY [facility] Last Admin: 06/21/20 10:26 Dose: 20 mg Documented by: Insulin Aspart (Novolog Vial Sliding Scale -) 1 vial SQ ACHS [facility]; Protocol Last Admin: 06/21/20 11:31 Dose: 2 units Documented by: Insulin Detemir (Levemir Vial) 5 units SQ AM [facility] Last Admin: 08/31/20 06:41 Dose: 5 units Documented by: Metoprolol Succinate (Toprol Xl -) 100 mg PO DAILY [facility] Last Admin: 06/21/20 10:26 Dose: 100 mg Documented by: Polyethylene Glycol (Miralax (For Daily Use) -) 17 gm PO DAILY [facility] Last Admin: 06/21/20 10:32 Dose: 17 grams Documented by: Tiotropium [place] (Spiriva Respimat) 2 puff IH DAILY [facility] Last Admin: 06/21/20 12:19 Dose: 2 puff Documented by: CVA, stable for DC Constipation, resolving CAD s/p CABG Parkinson's disease Atrial fibrillation, rate-controlled --Pt has been discharged and stable to continue discharge --Will need to continue Eliquis, toprol XL, home parkinson's medications as planned --Remains in this facility due to dispo to home as son is to pickle processor pt, however he is unable to be reached currently --Case management/SW on board and aware of above --Continue with d/c as planned. No further labs to be performed inpatient
--- NOTE | 2020-06-21 12:40 | PN ---
Progress Note, Physician History of Present Illness: Ms. Lamb is a 69 yr old woman (b. [place]) with h/o Parkinson's, afib, CAD s/p CABG, cardiac arrest, DM, HTN, HLD, diastolic CHF with moderately decreased RVEF, hx STEMI 10/2018, s/p fina clip p/w abd pain, s/p hematoma, now brought to ED by family after they noticed slurred speech and facial droop. Pt currently AOx2 (not time) and endorses pain in her knees bilaterally. Pt's apixaban had not been taken for about a week due to refill issues. - Current Medication List Current Medications: Active Medications Acetaminophen (Tylenol -) 500 mg PO Q4H PRN PRN Reason: PAIN Last Admin: 06/21/20 10:25 Dose: 500 mg Documented by: Apixaban (Eliquis -) 2.5 mg PO BID [facility] Last Admin: 06/21/20 10:26 Dose: 2.5 mg Documented by: Aspirin (Asa -) 81 mg PO DAILY [facility] Last Admin: 06/21/20 10:26 Dose: 81 mg Documented by: Atorvastatin Calcium (Lipitor -) 80 mg PO HS [facility] Last Admin: 06/20/20 22:17 Dose: 80 mg Documented by: Benztropine Mesylate (Cogentin -) 0.5 mg PO BID [facility] Last Admin: 06/21/20 10:26 Dose: 0.5 mg Documented by: Carbidopa/Levodopa (Sinemet 25/100 -) 1 each PO TID [facility] Last Admin: 06/21/20 06:41 Dose: 1 each Documented by: Docusate Sodium (Colace -) 100 mg PO BID PRN PRN Reason: CONSTIPATION Famotidine (Acid Outdoor Fitness Trainer) 10 mg PO DAILY [facility] Last Admin: 06/21/20 10:32 Dose: 10 mg Documented by: Furosemide (Lasix -) 20 mg PO DAILY [facility] Last Admin: 06/21/20 10:26 Dose: 20 mg Documented by: Insulin Aspart (Novolog Vial Sliding Scale -) 1 vial SQ ACHS [facility]; Protocol Last Admin: 06/21/20 11:31 Dose: 2 units Documented by: Insulin Detemir (Levemir Vial) 5 units SQ AM [facility] Last Admin: 06/21/20 06:41 Dose: 5 units Documented by: Metoprolol Succinate (Toprol Xl -) 100 mg PO DAILY [facility] Last Admin: 06/21/20 10:26 Dose: 100 mg Documented by: Polyethylene Glycol (Miralax (For Daily Use) -) 17 gm PO DAILY [facility] Last Admin: 06/21/20 10:32 Dose: 17 grams Documented by: Tiotropium [place] (Spiriva Respimat) 2 puff IH DAILY [facility] Last Admin: 06/21/20 12:19 Dose: 2 puff Documented by: - Objective Vital Signs: Vital Signs Temperature 98.2 F 06/21/20 10:00 Pulse Rate 109 H 06/21/20 10:00 Respiratory Rate 18 06/21/20 10:00 Blood Pressure 118/63 06/21/20 10:00 O2 Sat by Pulse Oximetry (%) 97 06/21/20 10:00 Eyes: Yes: WNL, Conjunctiva Clear, EOM Intact HENT: Yes: WNL, Atraumatic, Normocephalic Neck: Yes: WNL, Supple, Trachea Midline Cardiovascular: Yes: WNL, Regular Rate and Rhythm Respiratory: Yes: WNL, Regular, CTA Bilaterally Gastrointestinal: Yes: WNL, Normal Bowel Sounds Genitourinary: Yes: WNL Musculoskeletal: Yes: WNL Extremities: Yes: WNL Edema: No Integumentary: Yes: WNL ...Motor Strength: WNL Psychiatric: Yes: WNL Labs: CBC, BMP 06/21/20 05:50 06/21/20 05:50 INR, PTT INR 1.30 (0.83-1.09) H 06/17/20 05:38 Problem List - Problems (1) Atrial fibrillation Code(s): I48.91 - UNSPECIFIED ATRIAL FIBRILLATION Qualifiers: Atrial fibrillation type: unspecified Qualified Code(s): I48.91 - Unspecified atrial fibrillation (2) Cardiac arrest with successful resuscitation Code(s): I46.9 - CARDIAC ARREST, CAUSE UNSPECIFIED (3) Cerebrovascular accident (CVA) Code(s): I63.9 - CEREBRAL INFARCTION, UNSPECIFIED Qualifiers: CVA mechanism: unspecified Qualified Code(s): I63.9 - Cerebral infarction, unspecified (4) Hx of CABG Code(s): Z95.1 - PRESENCE OF AORTOCORONARY BYPASS GRAFT (5) STEMI (ST elevation myocardial infarction) Code(s): I21.3 - ST ELEVATION (STEMI) MYOCARDIAL INFARCTION OF [facility] SITE (6) CHF exacerbation Code(s): I50.9 - HEART FAILURE, UNSPECIFIED (7) Chest pain, atypical Code(s): R07.89 - OTHER CHEST PAIN (8) Chronic pain of both knees Code(s): M25.561 - PAIN IN RIGHT KNEE; M25.562 - PAIN IN LEFT KNEE; G89.29 - OTHER CHRONIC PAIN (9) DVT prophylaxis Code(s): Z29.9 - ENCOUNTER FOR PROPHYLACTIC MEASURES, UNSPECIFIED (10) Dementia Code(s): F03.90 - UNSPECIFIED DEMENTIA WITHOUT BEHAVIORAL DISTURBANCE (11) Depression Code(s): F32.9 - MAJOR DEPRESSIVE DISORDER, SINGLE EPISODE, UNSPECIFIED (12) Diabetes Code(s): E11.9 - TYPE 2 DIABETES MELLITUS WITHOUT COMPLICATIONS (13) Diastolic CHF Code(s): I50.30 - UNSPECIFIED DIASTOLIC (CONGESTIVE) HEART FAILURE (14) Heart failure, chronic, with acute decompensation Code(s): I50.9 - HEART FAILURE, UNSPECIFIED Qualifiers: Heart failure type: diastolic Qualified Code(s): I50.33 - Acute on chronic diastolic (congestive) heart failure (15) Hepatic congestion Code(s): K76.1 - CHRONIC PASSIVE CONGESTION OF LIVER (16) Parkinson disease Code(s): G20 - PARKINSON'S DISEASE (17) Parkinsonism Code(s): G20 - PARKINSON'S DISEASE (18) Prophylactic measure Code(s): Z29.9 - ENCOUNTER FOR PROPHYLACTIC MEASURES, UNSPECIFIED (19) Rectus sheath hematoma Code(s): S30.1XXA - CONTUSION OF ABDOMINAL WALL, INITIAL ENCOUNTER (20) Splenic infarct Code(s): D73.5 - INFARCTION OF SPLEEN (21) Spondylosis with compression of nerve root of lumbosacral region Code(s): M47.27 - OTHER SPONDYLOSIS WITH RADICULOPATHY, LUMBOSACRAL REGION (22) Status post fall Code(s): Z91.81 - HISTORY OF FALLING (23) Status post implantation of mitral valve leaflet clip Code(s): Z98.890 - OTHER SPECIFIED POSTPROCEDURAL STATES; Z95.818 - PRESENCE OF OTHER CARDIAC IMPLANTS AND GRAFTS (24) Supratherapeutic INR Code(s): R79.1 - ABNORMAL COAGULATION PROFILE (25) Syncope and collapse Code(s): R55 - SYNCOPE AND COLLAPSE (26) Acute on chronic systolic and diastolic heart failure, NYHA class 1 Code(s): I50.43 - ACUTE ON CHRONIC COMBINED SYSTOLIC AND DIASTOLIC HRT FAIL (27) Anemia Code(s): D64.9 - ANEMIA, UNSPECIFIED (28) Atrial fibrillation with rapid ventricular response Code(s): I48.91 - UNSPECIFIED ATRIAL FIBRILLATION (29) FH: mitral valve repair Code(s): Z82.49 - FAMILY HX OF ISCHEM HEART DIS AND OTH DIS OF THE CIRC SYS (30) HTN (hypertension) Code(s): I10 - ESSENTIAL (PRIMARY) HYPERTENSION Qualifiers: Hypertension type: unspecified Qualified Code(s): I10 - Essential (primary) hypertension (31) Hyperlipidemia Code(s): E78.5 - HYPERLIPIDEMIA, UNSPECIFIED Qualifiers: Hyperlipidemia type: pure hypercholesterolemia Qualified Code(s): E78.00 - Pure hypercholesterolemia, unspecified; E78.0 - Pure hypercholesterolemia (32) Hypothyroid Code(s): E03.9 - HYPOTHYROIDISM, UNSPECIFIED (33) Memory deficit Code(s): R41.3 - OTHER AMNESIA (34) Need for assistance due to unsteady gait Code(s): R26.89 - OTHER ABNORMALITIES OF GAIT AND MOBILITY (35) Parkinson disease Code(s): G20 - PARKINSON'S DISEASE (36) Parkinsonian tremor Code(s): G20 - PARKINSON'S DISEASE (37) S/P mitral valve repair Code(s): Z98.890 - OTHER SPECIFIED POSTPROCEDURAL STATES (38) Shortness of breath Code(s): R06.02 - SHORTNESS OF BREATH (39) Subcortical dementia Code(s): F03.90 - UNSPECIFIED DEMENTIA WITHOUT BEHAVIORAL DISTURBANCE (40) Systolic CHF Code(s): I50.20 - UNSPECIFIED SYSTOLIC (CONGESTIVE) HEART FAILURE (41) T2DM (type 2 diabetes mellitus) Code(s): E11.9 - TYPE 2 DIABETES MELLITUS WITHOUT COMPLICATIONS Qualifiers: Diabetes mellitus intermediate project manager insulin use: unspecified residential insulin use status Diabetes mellitus complication status: with unspecified complications (42) Tardive dyskinesia Code(s): G24.01 - DRUG INDUCED SUBACUTE DYSKINESIA (43) Chest pain Code(s): R07.9 - CHEST PAIN, UNSPECIFIED (44) Hypomagnesemia Code(s): E83.42 - HYPOMAGNESEMIA (45) PNA (pneumonia) Code(s): J18.9 - PNEUMONIA, UNSPECIFIED ORGANISM Qualifiers: Pneumonia type: due to unspecified organism Laterality: bilateral Lung location: unspecified part of lung Qualified Code(s): J18.9 - Pneumonia, unspecified organism (46) Respiratory distress Code(s): R06.03 - ACUTE RESPIRATORY DISTRESS (47) Viral illness Code(s): B34.9 - VIRAL INFECTION, UNSPECIFIED Assessment/Plan Acute CVA possibly from stopping apixaban; ? chronic CVA AF; noncompliance to apixaban for at least the past week Hx STEMI; s/p cardiac arrest now with elevated TNI: multiple contributers to demand ischemia Systolic (mildly reduced LVEF)/diastolic CHF; hx significantly reduced RVEF (most recent ECHO: normal RVEF; mild CHIN);s/p fina clip hyperlipidemia Parkinson's disease obesity DM hypomagnesemia: repleted Depression, exacerbated by recent of her Plan: COVID negative. Apixaban restarted; also on ASA. Continue metoprolol for HR control. On levo carbidopa ECHO: mildly reduced LVEF; normal RVEF and RV size; moderate LAE; CHIN; moderately severe TR; mild-moderate pulmonary HTN Start lisinopril 2.5 mg daily, unless contraindications exist (HTN; DM; systolic CHF; CAD). F/u TNI and EKG serially. replete Mg; f/u all electrolytes. Increase Atorvastatin to 80 mg daily. d/c telemetry
--- NOTE | 2020-06-21 13:24 | PN ---
Progress Note, ENGINEER AND GEOLOGIST - Note Progress Note: Selected Entries 06/20/20 06/20/20 06/20/20 14:00 15:00 18:44 Breakfast 75% 75% Diet Tolerated Well Well Well Lunch 75% 75% Supper 75% Temperature Pulse Rate Blood Pressure 06/21/20 06/21/20 06:00 10:00 Breakfast Diet Tolerated Lunch Supper Temperature 98.2 F Pulse Rate 87 109 H Blood Pressure 111/63 118/63 Laboratory Tests 06/21/20 05:50 WBC 8.6 Looking much better, feeding herself, sitting on side of bed. Speech now clear. Facial assymetry improving. Dislikes modified food, ordered when more dysarthric/dysphagic Upgrade to soft, reg diet thin liquids
[2020-06-21] MEDS: ATORVASTATIN CA 80 MG TABLET (FP) PO SCH (21:14)
[2020-06-22] MEDS: CARBIDOPA/LEVODOPA 25/100 TABLET (FP) PO SCH ×3 (05:41→21:54)
[2020-06-22] MEDS: INSULIN SLIDING SCALE (NOVOLOG) 1 VIAL SQ SCH ×4 (06:52→21:56)
[2020-06-22] MEDS: INSULIN (LEVEMIR) 100 UNITS/ML UNITS SQ SCH (06:56)
[2020-06-22] MEDS ORDERED: PT OWN MED DRAWER 7, Y5N ONE ×2 (09:39→13:06)
[2020-06-22] MEDS: ASPIRIN 81 MG CHEWABLE TABLETS PO SCH (09:42)
[2020-06-22] MEDS: APIXABAN 2.5 MG TABLET PO SCH ×2 (09:42→21:54)
[2020-06-22] MEDS: FUROSEMIDE 20 MG TABLET (FP) PO SCH (09:42)
[2020-06-22] MEDS: BENZTROPINE MESYLATE 0.5 MG TABLET (FP) PO SCH ×2 (09:43→21:54)
[2020-06-22] MEDS: POLYETHYLENE GLYCOL 3350 119 GM BTL PO SCH (09:43)
[2020-06-22] MEDS: FAMOTIDINE 10 MG TABLET PO SCH (09:43)
[2020-06-22] MEDS: TIOTROPIUM BROMIDE 2.5 MCG (SPIRIVA) RESPIMAT INHALER IH SCH (09:44)
--- NOTE | 2020-06-22 11:11 | PN ---
Progress Note, STOCK LETTERER - Note Progress Note: Selected Entries 06/20/20 06/20/20 06/20/20 14:00 15:00 18:44 Breakfast 75% 75% Diet Tolerated Well Well Well Lunch 75% 75% Supper 75% Temperature Pulse Rate Blood Pressure 06/21/20 06/21/20 06:00 10:00 Breakfast Diet Tolerated Lunch Supper Temperature 98.2 F Pulse Rate 87 109 H Blood Pressure 111/63 118/63 Laboratory Tests 06/21/20 05:50 WBC 8.6 Selected Entries 06/21/20 06/21/20 06/21/20 14:20 15:00 19:25 Breakfast 50% 50% Lunch 50% 50% Supper 50% Temperature Pulse Rate Blood Pressure 06/22/20 06/22/20 05:39 10:00 Breakfast Lunch Supper Temperature 98.8 F 97.6 F Pulse Rate 93 H 100 H Blood Pressure 117/74 130/76 Laboratory Tests 06/21/20 05:50 WBC 8.6 Frequent involuntary facial movements. Upgraded to soft, reg diet thin liquids Tolerating diet Pending d/c
--- NOTE | 2020-06-22 12:17 | PN ---
Physical Exam: SUBJECTIVE: Patient seen and examined. Denies any malaise. OBJECTIVE: Patient is a 69 year old female w/ PMH of tardive dyskinesia, Parkinsons disease, afib (has not taken eliquis for past week due to refill issue), CAD s/p CABG, cardiac arrest s/p ROSC, DM, HTN, HLD, CHF, STEMI w/ use of IABP, splenic infarct, Mitral regurgitation s/p mitral-clip brought to ED by family after they noticed slurred speech and facial droop. Vital Signs Period Temp Pulse Resp BP Sys/Castillo Pulse Ox Last 24 Hr 97.6 F-98.8 F 80-100 18-20 112-130/61-76 90-95 GENERAL: The patient is awake, alert, and fully oriented, in no acute distress. HEAD: Normal with no signs of trauma. EYES: PERRL, extraocular movements intact, sclera anicteric, conjunctiva clear. No ptosis. ENT: Ears normal, nares patent, oropharynx clear without exudates NECK: Trachea midline, full range of motion, supple. LUNGS: Breath sounds equal, clear to auscultation bilaterally HEART: Regular rate and rhythm ABDOMEN: Soft, nontender, nondistended, normoactive bowel sounds EXTREMITIES: no edema. NEUROLOGICAL: Normal speech, gait not observed. PSYCH: Normal mood, normal affect. SKIN: Warm, dry, normal turgor, no rashes or lesions noted Laboratory Results - last 24 hr 06/21/20 06/21/20 06/22/20 17:17 21:21 06:51 POC Glucometer 92 163 143 06/22/20 11:18 POC Glucometer 163 Active Medications Generic Name Dose Route Start Last Admin Trade Name Theoq PRN Reason Stop Dose Admin Acetaminophen 500 mg 06/19/20 01:34 06/21/20 10:25 Tylenol - PO 500 mg Q4H PRN Administration PAIN Apixaban 2.5 mg 06/16/20 12:10 06/22/20 09:42 Eliquis - PO 2.5 mg BID JESSICA Administration Aspirin 81 mg 06/15/20 10:00 06/22/20 09:42 Asa - PO 81 mg DAILY JESSICA Administration Atorvastatin Calcium 80 mg 06/15/20 22:00 06/21/20 21:14 Lipitor - PO 80 mg HS JESSICA Administration Benztropine Mesylate 0.5 mg 06/15/20 10:00 06/22/20 09:43 Cogentin - PO 0.5 mg BID JESSICA Administration Carbidopa/Levodopa 1 each 06/15/20 07:15 06/22/20 05:41 Sinemet 25/100 - PO 1 each TID JESSICA Administration Docusate Sodium 100 mg 06/20/20 13:00 Colace - PO BID PRN CONSTIPATION Famotidine 10 mg 06/15/20 10:00 06/22/20 09:43 Acid Junior Estimator PO 10 mg DAILY JESSICA Administration Furosemide 20 mg 06/15/20 11:29 06/22/20 09:42 Lasix - PO 20 mg DAILY JESSICA Administration Insulin Aspart 1 vial 06/15/20 11:00 06/22/20 11:22 Novolog Vial Sliding Scale - SQ 2 units ACHS JESISCA Administration Protocol Insulin Detemir 5 units 06/16/20 07:00 06/22/20 06:56 Levemir Vial SQ 5 units AM JESSICA Administration Metoprolol Succinate 100 mg 06/15/20 10:00 06/22/20 09:42 Toprol Xl - PO 100 mg DAILY JESSICA Administration Polyethylene Glycol 17 gm 06/20/20 13:00 06/22/20 09:43 Miralax (For Daily Use) - PO 17 grams DAILY JESSICA Administration Tiotropium [place] 2 puff 06/15/20 10:00 06/22/20 09:44 Spiriva Respimat IH 2 puff DAILY JESSICA Administration ASSESSMENT/PLAN: # Cerebrovascular accident (CVA) neuorology following- stable for dc c/w eliquis c/w PT carotid dopplers nml TTE noted and cardiology following dispo to home, awaiting son to pick her up as patient is locked out of her home #Constipation on a bowel regimen #Hx of CABG on eliquis,asa #STEMI (ST elevation myocardial infarction) previous STEMI c/w metoprolol #Atrial fibrillation rate controlled c/w metoprolol c/w eliquis-no bleed on MRI-home dose 2.5mg will c/w dose # Parkinson disease c/w sinemet and cogentin supportive care # Prophylactic measure FEN Fluids: adequate PO intake Electrolytes: monitored & repleted as needed Nutrition: dysphagia diet Visit type - Emergency Visit Emergency Visit: Yes ED Registration Date: 06/14/20 Care time: The patient presented to the Emergency Department on the above date and was hospitalized for further evaluation of their emergent condition. - New Patient This patient is new to me today: Yes Date on this admission: 06/22/20 - Critical Care Critical Care patient: No - Discharge Referral Referred to [facility] Med P.C.: No - Medication Review Med list reviewed for High Risk Meds patients 65 and older: Yes
[2020-06-22] MEDS ORDERED: DOCUSATE SODIUM 100 MG CAPSULE (FP) PO PRN (14:43)
--- NOTE | 2020-06-22 14:53 | PN ---
Progress Note, Physician History of Present Illness: Ms. Lamb is a 69 yr old woman (b. [place]) with h/o Parkinson's, afib, CAD s/p CABG, cardiac arrest, DM, HTN, HLD, diastolic CHF with moderately decreased RVEF, hx STEMI 10/2018, s/p fina clip p/w abd pain, s/p hematoma, now brought to ED by family after they noticed slurred speech and facial droop. Pt currently AOx2 (not time) and endorses pain in her knees bilaterally. Pt's apixaban had not been taken for about a week due to refill issues. - Current Medication List Current Medications: Active Medications Acetaminophen (Tylenol -) 500 mg PO Q4H PRN PRN Reason: PAIN Apixaban (Eliquis -) 2.5 mg PO BID JESSICA Aspirin (Asa -) 81 mg PO DAILY JESSICA Atorvastatin Calcium (Lipitor -) 80 mg PO HS JESSICA Benztropine Mesylate (Cogentin -) 0.5 mg PO BID JESSICA Carbidopa/Levodopa (Sinemet 25/100 -) 1 each PO TID JESSICA Docusate Sodium (Colace -) 100 mg PO BID PRN PRN Reason: CONSTIPATION Famotidine (Acid Contact Acid Plant Operator Helper) 10 mg PO DAILY JESSICA Furosemide (Lasix -) 20 mg PO DAILY [facility] Insulin Aspart (Novolog Vial Sliding Scale -) 1 vial SQ ACHS [facility]; Protocol Insulin Detemir (Levemir Vial) 5 units SQ AM [facility] Metoprolol Succinate (Toprol Xl -) 100 mg PO DAILY [facility] Polyethylene Glycol (Miralax (For Daily Use) -) 17 gm PO DAILY [facility] Tiotropium Rainbow (Spiriva Respimat) 2 puff IH DAILY [facility] - Objective Vital Signs: Vital Signs Temperature 97.6 F 06/22/20 10:00 Pulse Rate 100 H 06/22/20 10:00 Respiratory Rate 18 06/22/20 10:00 Blood Pressure 130/76 06/22/20 10:00 O2 Sat by Pulse Oximetry (%) 90 L 06/22/20 10:00 Eyes: Yes: WNL, Conjunctiva Clear, EOM Intact HENT: Yes: WNL, Atraumatic, Normocephalic Neck: Yes: WNL, Supple, Trachea Midline Cardiovascular: Yes: WNL, Regular Rate and Rhythm Respiratory: Yes: WNL, Regular, CTA Bilaterally Gastrointestinal: Yes: WNL, Normal Bowel Sounds Genitourinary: Yes: WNL Musculoskeletal: Yes: WNL Extremities: Yes: WNL Edema: No Integumentary: Yes: WNL ...Motor Strength: WNL Psychiatric: Yes: WNL Labs: CBC, BMP 06/21/20 05:50 06/21/20 05:50 INR, PTT INR 1.30 (0.83-1.09) H 06/17/20 05:38 Problem List - Problems (1) Atrial fibrillation Code(s): I48.91 - UNSPECIFIED ATRIAL FIBRILLATION Qualifiers: Atrial fibrillation type: unspecified Qualified Code(s): I48.91 - Unspecified atrial fibrillation (2) Cardiac arrest with successful resuscitation Code(s): I46.9 - CARDIAC ARREST, CAUSE UNSPECIFIED (3) Cerebrovascular accident (CVA) Code(s): I63.9 - CEREBRAL INFARCTION, UNSPECIFIED Qualifiers: CVA mechanism: unspecified Qualified Code(s): I63.9 - Cerebral infarction, unspecified (4) Hx of CABG Code(s): Z95.1 - PRESENCE OF AORTOCORONARY BYPASS GRAFT (5) STEMI (ST elevation myocardial infarction) Code(s): I21.3 - ST ELEVATION (STEMI) MYOCARDIAL INFARCTION OF [facility] SITE (6) CHF exacerbation Code(s): I50.9 - HEART FAILURE, UNSPECIFIED (7) Chest pain, atypical Code(s): R07.89 - OTHER CHEST PAIN (8) Chronic pain of both knees Code(s): M25.561 - PAIN IN RIGHT KNEE; M25.562 - PAIN IN LEFT KNEE; G89.29 - OTHER CHRONIC PAIN (9) DVT prophylaxis Code(s): Z29.9 - ENCOUNTER FOR PROPHYLACTIC MEASURES, UNSPECIFIED (10) Dementia Code(s): F03.90 - UNSPECIFIED DEMENTIA WITHOUT BEHAVIORAL DISTURBANCE (11) Depression Code(s): F32.9 - MAJOR DEPRESSIVE DISORDER, SINGLE EPISODE, UNSPECIFIED (12) Diabetes Code(s): E11.9 - TYPE 2 DIABETES MELLITUS WITHOUT COMPLICATIONS (13) Diastolic CHF Code(s): I50.30 - UNSPECIFIED DIASTOLIC (CONGESTIVE) HEART FAILURE (14) Heart failure, chronic, with acute decompensation Code(s): I50.9 - HEART FAILURE, UNSPECIFIED Qualifiers: Heart failure type: diastolic Qualified Code(s): I50.33 - Acute on chronic diastolic (congestive) heart failure (15) Hepatic congestion Code(s): K76.1 - CHRONIC PASSIVE CONGESTION OF LIVER (16) Parkinson disease Code(s): G20 - PARKINSON'S DISEASE (17) Parkinsonism Code(s): G20 - PARKINSON'S DISEASE (18) Prophylactic measure Code(s): Z29.9 - ENCOUNTER FOR PROPHYLACTIC MEASURES, UNSPECIFIED (19) Rectus sheath hematoma Code(s): S30.1XXA - CONTUSION OF ABDOMINAL WALL, INITIAL ENCOUNTER (20) Splenic infarct Code(s): D73.5 - INFARCTION OF SPLEEN (21) Spondylosis with compression of nerve root of lumbosacral region Code(s): M47.27 - OTHER SPONDYLOSIS WITH RADICULOPATHY, LUMBOSACRAL REGION (22) Status post fall Code(s): Z91.81 - HISTORY OF FALLING (23) Status post implantation of mitral valve leaflet clip Code(s): Z98.890 - OTHER SPECIFIED POSTPROCEDURAL STATES; Z95.818 - PRESENCE OF OTHER CARDIAC IMPLANTS AND GRAFTS (24) Supratherapeutic INR Code(s): R79.1 - ABNORMAL COAGULATION PROFILE (25) Syncope and collapse Code(s): R55 - SYNCOPE AND COLLAPSE (26) Acute on chronic systolic and diastolic heart failure, NYHA class 1 Code(s): I50.43 - ACUTE ON CHRONIC COMBINED SYSTOLIC AND DIASTOLIC HRT FAIL (27) Anemia Code(s): D64.9 - ANEMIA, UNSPECIFIED (28) Atrial fibrillation with rapid ventricular response Code(s): I48.91 - UNSPECIFIED ATRIAL FIBRILLATION (29) FH: mitral valve repair Code(s): Z82.49 - FAMILY HX OF ISCHEM HEART DIS AND OTH DIS OF THE CIRC SYS (30) HTN (hypertension) Code(s): I10 - ESSENTIAL (PRIMARY) HYPERTENSION Qualifiers: Hypertension type: unspecified Qualified Code(s): I10 - Essential (primary) hypertension (31) Hyperlipidemia Code(s): E78.5 - HYPERLIPIDEMIA, UNSPECIFIED Qualifiers: Hyperlipidemia type: pure hypercholesterolemia Qualified Code(s): E78.00 - Pure hypercholesterolemia, unspecified; E78.0 - Pure hypercholesterolemia (32) Hypothyroid Code(s): E03.9 - HYPOTHYROIDISM, UNSPECIFIED (33) Memory deficit Code(s): R41.3 - OTHER AMNESIA (34) Need for assistance due to unsteady gait Code(s): R26.89 - OTHER ABNORMALITIES OF GAIT AND MOBILITY (35) Parkinson disease Code(s): G20 - PARKINSON'S DISEASE (36) Parkinsonian tremor Code(s): G20 - PARKINSON'S DISEASE (37) S/P mitral valve repair Code(s): Z98.890 - OTHER SPECIFIED POSTPROCEDURAL STATES (38) Shortness of breath Code(s): R06.02 - SHORTNESS OF BREATH (39) Subcortical dementia Code(s): F03.90 - UNSPECIFIED DEMENTIA WITHOUT BEHAVIORAL DISTURBANCE (40) Systolic CHF Code(s): I50.20 - UNSPECIFIED SYSTOLIC (CONGESTIVE) HEART FAILURE (41) T2DM (type 2 diabetes mellitus) Code(s): E11.9 - TYPE 2 DIABETES MELLITUS WITHOUT COMPLICATIONS Qualifiers: Diabetes mellitus terminal superintendent insulin use: unspecified skilled nursing insulin use status Diabetes mellitus complication status: with unspecified complications (42) Tardive dyskinesia Code(s): G24.01 - DRUG INDUCED SUBACUTE DYSKINESIA (43) Chest pain Code(s): R07.9 - CHEST PAIN, UNSPECIFIED (44) Hypomagnesemia Code(s): E83.42 - HYPOMAGNESEMIA (45) PNA (pneumonia) Code(s): J18.9 - PNEUMONIA, UNSPECIFIED ORGANISM Qualifiers: Pneumonia type: due to unspecified organism Laterality: bilateral Lung location: unspecified part of lung Qualified Code(s): J18.9 - Pneumonia, unspecified organism (46) Respiratory distress Code(s): R06.03 - ACUTE RESPIRATORY DISTRESS (47) Viral illness Code(s): B34.9 - VIRAL INFECTION, UNSPECIFIED Assessment/Plan Acute CVA possibly from stopping apixaban; ? chronic CVA AF; noncompliance to apixaban for at least the past week Hx STEMI; s/p cardiac arrest now with elevated TNI: multiple contributers to demand ischemia Systolic (mildly reduced LVEF)/diastolic CHF; hx significantly reduced RVEF (most recent ECHO: normal RVEF; mild CHIN);s/p fina clip hyperlipidemia Parkinson's disease obesity DM hypomagnesemia: repleted Depression, exacerbated by recent of her Plan: COVID negative. Apixaban restarted; also on ASA. Continue metoprolol for HR control. On levo carbidopa ECHO: mildly reduced LVEF; normal RVEF and RV size; moderate LAE; CHIN; moderatel y severe TR; mild-moderate pulmonary HTN Start lisinopril 2.5 mg daily, unless contraindications exist (HTN; DM; systolic CHF; CAD). F/u TNI and EKG serially. replete Mg; f/u all electrolytes. Increase Atorvastatin to 80 mg daily. d/c telemetry
[2020-06-22] MEDS: ATORVASTATIN CA 80 MG TABLET (FP) PO SCH (21:54)
[2020-06-23] MEDS: INSULIN SLIDING SCALE (NOVOLOG) 1 VIAL SQ SCH ×4 (06:12→22:05)
[2020-06-23] MEDS: CARBIDOPA/LEVODOPA 25/100 TABLET (FP) PO SCH ×3 (06:12→21:04)
[2020-06-23] MEDS: INSULIN (LEVEMIR) 100 UNITS/ML UNITS SQ SCH (06:13)
[2020-06-23] MEDS ORDERED: PT OWN MED DRAWER 7, Y5N ONE ×2 (09:36→20:56)
[2020-06-23] MEDS: FUROSEMIDE 20 MG TABLET (FP) PO SCH (09:38)
[2020-06-23] MEDS: ASPIRIN 81 MG CHEWABLE TABLETS PO SCH (09:38)
[2020-06-23] MEDS: BENZTROPINE MESYLATE 0.5 MG TABLET (FP) PO SCH ×2 (09:38→21:03)
[2020-06-23] MEDS: APIXABAN 2.5 MG TABLET PO SCH ×2 (09:38→21:04)
[2020-06-23] MEDS: TIOTROPIUM BROMIDE 2.5 MCG (SPIRIVA) RESPIMAT INHALER IH SCH (09:39)
[2020-06-23] MEDS: FAMOTIDINE 10 MG TABLET PO SCH (09:39)
[2020-06-23] MEDS: POLYETHYLENE GLYCOL 3350 119 GM BTL PO SCH (09:39)
[2020-06-23] MEDS ORDERED: MAG HYDROX/AL HYDROX/SIMETH 30 ML UNIT-DOSE CUP PO PRN (11:19)
[2020-06-23] MEDS ORDERED: INSULIN (NOVOLOG) ASPART 100 UNITS/ML 10ML VIAL ONE (12:04)
[2020-06-23] MEDS: SIMETHICONE 80 MG TAB.CHEW (FP) PO PRN ×2 (12:05→21:04)
--- NOTE | 2020-06-23 12:28 | PN ---
Progress Note, Physician History of Present Illness: Ms. Lamb is a 69 yr old woman (b. [place]) with h/o Parkinson's, afib, CAD s/p CABG, cardiac arrest, DM, HTN, HLD, diastolic CHF with moderately decreased RVEF, hx STEMI 10/2018, s/p fina clip p/w abd pain, s/p hematoma, now brought to ED by family after they noticed slurred speech and facial droop. Pt currently AOx2 (not time) and endorses pain in her knees bilaterally. Pt's apixaban had not been taken for about a week due to refill issues. - Current Medication List Current Medications: Active Medications Acetaminophen (Tylenol -) 500 mg PO Q4H PRN PRN Reason: PAIN 1-3 Al Hydroxide/Mg Hydroxide (Mylanta Oral Suspension -) 30 ml PO Q6H PRN PRN Reason: DYSPEPSIA Apixaban (Eliquis -) 2.5 mg PO BID [facility] Last Admin: 06/23/20 09:38 Dose: 2.5 mg Documented by: Aspirin (Asa -) 81 mg PO DAILY [facility] Last Admin: 06/23/20 09:38 Dose: 81 mg Documented by: Atorvastatin Calcium (Lipitor -) 80 mg PO HS [facility] Last Admin: 06/22/20 21:54 Dose: 80 mg Documented by: Benztropine Mesylate (Cogentin -) 0.5 mg PO BID [facility] Last Admin: 06/23/20 09:38 Dose: 0.5 mg Documented by: Carbidopa/Levodopa (Sinemet 25/100 -) 1 each PO TID [facility] Last Admin: 06/23/20 06:12 Dose: 1 each Documented by: Docusate Sodium (Colace -) 100 mg PO BID PRN PRN Reason: CONSTIPATION Famotidine (Acid Chiropractic Doctor) 10 mg PO DAILY [facility] Last Admin: 06/23/20 09:39 Dose: 10 mg Documented by: Furosemide (Lasix -) 20 mg PO DAILY [facility] Last Admin: 06/23/20 09:38 Dose: 20 mg Documented by: Insulin Aspart (Novolog Vial Sliding Scale -) 1 vial SQ ACHS [facility]; Protocol Last Admin: 06/23/20 12:05 Dose: 2 units Documented by: Insulin Detemir (Levemir Vial) 5 units SQ AM [facility] Last Admin: 06/23/20 06:13 Dose: 5 units Documented by: Metoprolol Succinate (Toprol Xl -) 100 mg PO DAILY [facility] Last Admin: 06/23/20 09:38 Dose: 100 mg Documented by: Polyethylene Glycol (Miralax (For Daily Use) -) 17 gm PO DAILY [facility] Last Admin: 06/23/20 09:39 Dose: 17 gm Documented by: Simethicone (Mylicon -) 80 mg PO Q4H PRN PRN Reason: DYSPEPSIA Last Admin: 06/23/20 12:05 Dose: 80 mg Documented by: Tiotropium [place] (Spiriva Respimat) 2 puff IH DAILY [facility] Last Admin: 06/23/20 09:39 Dose: 2 puff Documented by: - Objective Vital Signs: Vital Signs Temperature 98.2 F 06/23/20 11:15 Pulse Rate 82 06/23/20 11:15 Respiratory Rate 06/23/20 11:15 Blood Pressure 121/64 06/23/20 11:15 O2 Sat by Pulse Oximetry (%) 96 06/23/20 11:15 Eyes: Yes: WNL, Conjunctiva Clear, EOM Intact HENT: Yes: WNL, Atraumatic, Normocephalic Neck: Yes: WNL, Supple, Trachea Midline Cardiovascular: Yes: WNL, Regular Rate and Rhythm Respiratory: Yes: WNL, Regular, CTA Bilaterally Gastrointestinal: Yes: WNL, Normal Bowel Sounds Genitourinary: Yes: WNL Musculoskeletal: Yes: WNL Extremities: Yes: WNL Edema: No Integumentary: Yes: WNL Labs: CBC, BMP 06/21/20 05:50 06/21/20 05:50 INR, PTT INR 1.30 (0.83-1.09) H 06/17/20 05:38 Problem List - Problems (1) Atrial fibrillation Code(s): I48.91 - UNSPECIFIED ATRIAL FIBRILLATION Qualifiers: Atrial fibrillation type: unspecified Qualified Code(s): I48.91 - Unspecified atrial fibrillation (2) Cardiac arrest with successful resuscitation Code(s): I46.9 - CARDIAC ARREST, CAUSE UNSPECIFIED (3) Cerebrovascular accident (CVA) Code(s): I63.9 - CEREBRAL INFARCTION, UNSPECIFIED Qualifiers: CVA mechanism: unspecified Qualified Code(s): I63.9 - Cerebral infarction, unspecified (4) Hx of CABG Code(s): Z95.1 - PRESENCE OF AORTOCORONARY BYPASS GRAFT (5) STEMI (ST elevation myocardial infarction) Code(s): I21.3 - ST ELEVATION (STEMI) MYOCARDIAL INFARCTION OF [facility] SITE (6) CHF exacerbation Code(s): I50.9 - HEART FAILURE, UNSPECIFIED (7) Chest pain, atypical Code(s): R07.89 - OTHER CHEST PAIN (8) Chronic pain of both knees Code(s): M25.561 - PAIN IN RIGHT KNEE; M25.562 - PAIN IN LEFT KNEE; G89.29 - OTHER CHRONIC PAIN (9) DVT prophylaxis Code(s): Z29.9 - ENCOUNTER FOR PROPHYLACTIC MEASURES, UNSPECIFIED (10) Dementia Code(s): F03.90 - UNSPECIFIED DEMENTIA WITHOUT BEHAVIORAL DISTURBANCE (11) Depression Code(s): F32.9 - MAJOR DEPRESSIVE DISORDER, SINGLE EPISODE, UNSPECIFIED (12) Diabetes Code(s): E11.9 - TYPE 2 DIABETES MELLITUS WITHOUT COMPLICATIONS (13) Diastolic CHF Code(s): I50.30 - UNSPECIFIED DIASTOLIC (CONGESTIVE) HEART FAILURE (14) Heart failure, chronic, with acute decompensation Code(s): I50.9 - HEART FAILURE, UNSPECIFIED Qualifiers: Heart failure type: diastolic Qualified Code(s): I50.33 - Acute on chronic diastolic (congestive) heart failure (15) Hepatic congestion Code(s): K76.1 - CHRONIC PASSIVE CONGESTION OF LIVER (16) Parkinson disease Code(s): G20 - PARKINSON'S DISEASE (17) Parkinsonism Code(s): G20 - PARKINSON'S DISEASE (18) Prophylactic measure Code(s): Z29.9 - ENCOUNTER FOR PROPHYLACTIC MEASURES, UNSPECIFIED (19) Rectus sheath hematoma Code(s): S30.1XXA - CONTUSION OF ABDOMINAL WALL, INITIAL ENCOUNTER (20) Splenic infarct Code(s): D73.5 - INFARCTION OF SPLEEN (21) Spondylosis with compression of nerve root of lumbosacral region Code(s): M47.27 - OTHER SPONDYLOSIS WITH RADICULOPATHY, LUMBOSACRAL REGION (22) Status post fall Code(s): Z91.81 - HISTORY OF FALLING (23) Status post implantation of mitral valve leaflet clip Code(s): Z98.890 - OTHER SPECIFIED POSTPROCEDURAL STATES; Z95.818 - PRESENCE OF OTHER CARDIAC IMPLANTS AND GRAFTS (24) Supratherapeutic INR Code(s): R79.1 - ABNORMAL COAGULATION PROFILE (25) Syncope and collapse Code(s): R55 - SYNCOPE AND COLLAPSE (26) Acute on chronic systolic and diastolic heart failure, NYHA class 1 Code(s): I50.43 - ACUTE ON CHRONIC COMBINED SYSTOLIC AND DIASTOLIC HRT FAIL (27) Anemia Code(s): D64.9 - ANEMIA, UNSPECIFIED (28) Atrial fibrillation with rapid ventricular response Code(s): I48.91 - UNSPECIFIED ATRIAL FIBRILLATION (29) FH: mitral valve repair Code(s): Z82.49 - FAMILY HX OF ISCHEM HEART DIS AND OTH DIS OF THE CIRC SYS (30) HTN (hypertension) Code(s): I10 - ESSENTIAL (PRIMARY) HYPERTENSION Qualifiers: Hypertension type: unspecified Qualified Code(s): I10 - Essential (primary) hypertension (31) Hyperlipidemia Code(s): E78.5 - HYPERLIPIDEMIA, UNSPECIFIED Qualifiers: Hyperlipidemia type: pure hypercholesterolemia Qualified Code(s): E78.00 - Pure hypercholesterolemia, unspecified; E78.0 - Pure hypercholesterolemia (32) Hypothyroid Code(s): E03.9 - HYPOTHYROIDISM, UNSPECIFIED (33) Memory deficit Code(s): R41.3 - OTHER AMNESIA (34) Need for assistance due to unsteady gait Code(s): R26.89 - OTHER ABNORMALITIES OF GAIT AND MOBILITY (35) Parkinson disease Code(s): G20 - PARKINSON'S DISEASE (36) Parkinsonian tremor Code(s): G20 - PARKINSON'S DISEASE (37) S/P mitral valve repair Code(s): Z98.890 - OTHER SPECIFIED POSTPROCEDURAL STATES (38) Shortness of breath Code(s): R06.02 - SHORTNESS OF BREATH (39) Subcortical dementia Code(s): F03.90 - UNSPECIFIED DEMENTIA WITHOUT BEHAVIORAL DISTURBANCE (40) Systolic CHF Code(s): I50.20 - UNSPECIFIED SYSTOLIC (CONGESTIVE) HEART FAILURE (41) T2DM (type 2 diabetes mellitus) Code(s): E11.9 - TYPE 2 DIABETES MELLITUS WITHOUT COMPLICATIONS Qualifiers: Diabetes mellitus usp insulin use: unspecified manager terminal insulin use status Diabetes mellitus complication status: with unspecified complications (42) Tardive dyskinesia Code(s): G24.01 - DRUG INDUCED SUBACUTE DYSKINESIA (43) Chest pain Code(s): R07.9 - CHEST PAIN, UNSPECIFIED (44) Hypomagnesemia Code(s): E83.42 - HYPOMAGNESEMIA (45) PNA (pneumonia) Code(s): J18.9 - PNEUMONIA, UNSPECIFIED ORGANISM Qualifiers: Pneumonia type: due to unspecified organism Laterality: bilateral Lung location: unspecified part of lung Qualified Code(s): J18.9 - Pneumonia, unspecified organism (46) Respiratory distress Code(s): R06.03 - ACUTE RESPIRATORY DISTRESS (47) Viral illness Code(s): B34.9 - VIRAL INFECTION, UNSPECIFIED Assessment/Plan Acute CVA possibly from stopping apixaban; ? chronic CVA AF; noncompliance to apixaban for at least the past week Hx STEMI; s/p cardiac arrest now with elevated TNI: multiple contributers to demand ischemia Systolic (mildly reduced LVEF)/diastolic CHF; hx significantly reduced RVEF (most recent ECHO: normal RVEF; mild CHIN);s/p fina clip hyperlipidemia Parkinson's disease obesity DM hypomagnesemia: repleted Depression, exacerbated by recent of her Plan: COVID negative. Apixaban restarted; also on ASA. Continue metoprolol for HR control. On levo carbidopa ECHO: mildly reduced LVEF; normal RVEF and RV size; moderate LAE; CHIN; moderately severe TR; mild-moderate pulmonary HTN Start lisinopril 2.5 mg daily, unless contraindications exist (HTN; DM; systolic CHF; CAD). F/u TNI and EKG serially. replete Mg; f/u all electrolytes. Increase Atorvastatin to 80 mg daily.
--- NOTE | 2020-06-23 14:44 | PN ---
Progress Note, [employer] - Note Progress Note: Selected Entries 06/23/20 06/23/20 06/23/20 06:00 09:05 11:14 Breakfast 75% Diet Tolerated Well Lunch 75% Temperature 96.8 F L 97.8 F Pulse Rate 90 86 Blood Pressure 144/78 127/70 06/23/20 06/23/20 11:15 13:14 Breakfast Diet Tolerated Lunch Temperature 98.2 F 98.1 F Pulse Rate 82 82 Blood Pressure 121/64 106/50 L Laboratory Tests 06/21/20 05:50 WBC 8.6 Impulsive self feeding during mbs. Cognitive performance seems to vary Provide verbal cues to take small bites, chew well, swallow before next trial If impulsivity persists, please cut up food in swmall pieces. Supervision meal time
--- NOTE | 2020-06-23 15:17 | PN ---
Physical Exam: SUBJECTIVE: Patient seen and examined at the bedside. denies any pain or malaise OBJECTIVE: Patient is a 69 year old female w/PMH of tardive dyskinesia, Parkinsons disease, afib (has not taken eliquis for past week due to refill issue), CAD s/p CABG, cardiac arrest s/p ROSC, DM, HTN, HLD, CHF, STEMI w/ use of IABP, splenic infarct, Mitral regurgitation s/p mitral-clip brought to ED by family after they noticed slurred speech and facial droop. patient for d/c home but family not able to be reached as patient has not access to her home for a ua/uc for urinary frequency. Period Temp Pulse Resp BP Sys/Castillo Pulse Ox Last 24 Hr 96.8 F-98.3 F 82-102 18-20 106-144/50-78 94-97 GENERAL: The patient is awake, alert, and fully oriented, in no acute distress. HEAD: Normal with no signs of trauma. EYES: PERRL, extraocular movements intact, sclera anicteric, conjunctiva clear. No ptosis. ENT: Ears normal, nares patent, oropharynx clear without exudates NECK: Trachea midline, full range of motion, supple. LUNGS: Breath sounds equal, clear to auscultation bilaterally HEART: Regular rate and rhythm ABDOMEN: Soft, nontender, nondistended, normoactive bowel sounds EXTREMITIES: no edema. NEUROLOGICAL: Normal speech, gait not observed. PSYCH: Normal mood, normal affect. SKIN: Warm, dry, normal turgor, no rashes or lesions noted Laboratory Results - last 24 hr 06/22/20 06/22/20 06/23/20 16:30 21:56 06:11 POC Glucometer 163 128 125 06/23/20 12:02 POC Glucometer 172 Active Medications Generic Name Dose Route Start Last Admin Trade Name Freq PRN Reason Stop Dose Admin Acetaminophen 500 mg 06/22/20 14:43 Tylenol - PO Q4H PRN PAIN 1-3 Al Hydroxide/Mg Hydroxide 30 ml 06/23/20 11:19 Mylanta Oral Suspension - PO Q6H PRN DYSPEPSIA Apixaban 2.5 mg 06/22/20 22:00 06/23/20 09:38 Eliquis - PO 2.5 mg BID JESSICA Administration Aspirin 81 mg 06/23/20 10:00 06/23/20 09:38 Asa - PO 81 mg DAILY JESSICA Administration Atorvastatin Calcium 80 mg 06/22/20 22:00 06/22/20 21:54 Lipitor - PO 80 mg HS JESSICA Administration Benztropine Mesylate 0.5 mg 06/22/20 22:00 06/23/20 09:38 Cogentin - PO 0.5 mg BID JESSICA Administration Carbidopa/Levodopa 1 each 06/22/20 22:00 06/23/20 13:59 Sinemet 25/100 - PO 1 each TID JESSICA Administration Docusate Sodium 100 mg 06/22/20 14:43 Colace - PO BID PRN CONSTIPATION Famotidine 10 mg 06/23/20 10:00 06/23/20 09:39 Acid Touch Up Worker PO 10 mg DAILY [facility] Administration Furosemide 20 mg 06/23/20 10:00 06/23/20 09:38 Lasix - PO 20 mg DAILY [facility] Administration Insulin Aspart 1 vial 06/22/20 16:30 06/23/20 12:05 Novolog Vial Sliding Scale - SQ 2 units ACHS JESSICA Administration Protocol Insulin Detemir 5 units 06/23/20 07:00 06/23/20 06:13 Levemir Vial SQ 5 units AM [facility] Administration Metoprolol Succinate 100 mg 06/23/20 10:00 06/23/20 09:38 Toprol Xl - PO 100 mg DAILY [facility] Administration Polyethylene Glycol 17 gm 06/23/20 10:00 06/23/20 09:39 Miralax (For Daily Use) - PO 17 gm DAILY [facility] Administration Simethicone 80 mg 06/23/20 11:18 06/23/20 12:05 Mylicon - PO 80 mg Q4H PRN Administration DYSPEPSIA Tiotropium [place] 2 puff 06/23/20 10:00 06/23/20 09:39 Spiriva Respimat IH 2 puff DAILY [facility] Administration ASSESSMENT/PLAN: # Cerebrovascular accident (CVA) neuorology following- stable for dc home, pendng family continuous pickling line pickler helper c/w eliquis c/w PT carotid dopplers nml TTE noted and cardiology following dispo to home, awaiting son to pick her up as patient is locked out of her home #Constipation on a bowel regimen #Hx of CABG on eliquis,asa #STEMI (ST elevation myocardial infarction) previous STEMI c/w metoprolol #Atrial fibrillation rate controlled c/w metoprolol c/w eliquis-no bleed on MRI-home dose 2.5mg will c/w dose # Parkinson disease c/w sinemet and cogentin supportive care #urinary frequency UA/UC ordered she is afebrile # Prophylactic measure FEN Fluids: adequate PO intake Electrolytes: monitored & repleted as needed Nutrition: soft diet/thin liquids Visit type - Emergency Visit Emergency Visit: Yes ED Registration Date: 06/14/20 Care time: The patient presented to the Emergency Department on the above date and was hospitalized for further evaluation of their emergent condition. - New Patient This patient is new to me today: No - Critical Care Critical Care patient: No - Discharge Referral Referred to [facility] No - Medication Review Med list reviewed for High Risk Meds patients 65 and older: Yes
[2020-06-23] MEDS: ATORVASTATIN CA 80 MG TABLET (FP) PO SCH (21:04)
[2020-06-24] MEDS: INSULIN SLIDING SCALE (NOVOLOG) 1 VIAL SQ SCH ×4 (06:23→21:36)
[2020-06-24] MEDS: INSULIN (LEVEMIR) 100 UNITS/ML UNITS SQ SCH (06:24)
[2020-06-24] MEDS: CARBIDOPA/LEVODOPA 25/100 TABLET (FP) PO SCH ×3 (06:24→21:34)
[2020-06-24 09:15] LABS: BASO % 0.6 % (0-2.0); EOS % 1.5 % (0-4.5); HEMATOCRIT 40.6 % (32.4-45.2); HEMOGLOBIN 13.1 GM/dL (10.7-15.3); LYMPH % 28.4 % (8-40); MCH 26.8 pg (25.7-33.7); MCHC 32.3 g/dl (32.0-36.0); MEAN CELL VOLUME 83.1 fl (80-96); MEAN PLT VOLUME 9.1 fl (7.5-11.1); MONO % 7.9 % (3.8-10.2); NEUT % 61.6 % (42.8-82.8); PLATELET COUNT 333 K/MM3 (134-434); RBC 4.89 M/mm3 (3.60-5.2); RDW 16.8 % (11.6-15.6); WHITE BLOOD COUNT 8.9 K/mm3 (4.0-10.0)
[2020-06-24 09:41] LABS: ALBUMIN 3.3 g/dl (3.4-5.0); BILIRUBIN,TOTAL 0.9 mg/dL (0.2-1); BLOOD UREA NITROGEN 17.3 mg/dL (7-18); CALCIUM 9.3 mg/dL (8.5-10.1); CREATININE 0.8 mg/dL (0.55-1.3); POTASSIUM 3.8 mmol/L (3.5-5.1); TOT PROT 8.2 g/dl (6.4-8.2)
[2020-06-24] MEDS ORDERED: PT OWN MED DRAWER 7, Y5N ONE ×2 (09:52→21:17)
[2020-06-24] MEDS: ASPIRIN 81 MG CHEWABLE TABLETS PO SCH (10:00)
[2020-06-24] MEDS: FUROSEMIDE 20 MG TABLET (FP) PO SCH (10:00)
[2020-06-24] MEDS: BENZTROPINE MESYLATE 0.5 MG TABLET (FP) PO SCH ×2 (10:00→21:35)
[2020-06-24] MEDS: APIXABAN 2.5 MG TABLET PO SCH ×2 (10:00→21:36)
[2020-06-24] MEDS: POLYETHYLENE GLYCOL 3350 119 GM BTL PO SCH ×2 (10:00→10:15)
[2020-06-24] MEDS: FAMOTIDINE 10 MG TABLET PO SCH (10:00)
[2020-06-24] MEDS: TIOTROPIUM BROMIDE 2.5 MCG (SPIRIVA) RESPIMAT INHALER IH SCH (10:01)
--- NOTE | 2020-06-24 10:15 | PN ---
Progress Note, [employer] - Note Progress Note: Selected Entries 06/23/20 06/23/20 06/23/20 06:00 09:05 11:14 Breakfast 75% Diet Tolerated Well Lunch 75% Temperature 96.8 F L 97.8 F Pulse Rate 90 86 Blood Pressure 144/78 127/70 06/23/20 06/23/20 11:15 13:14 Breakfast Diet Tolerated Lunch Temperature 98.2 F 98.1 F Pulse Rate 82 82 Blood Pressure 121/64 106/50 L Laboratory Tests 06/21/20 05:50 WBC 8.6 Selected Entries 06/23/20 06/23/20 06/24/20 11:14 21:24 06:00 Breakfast 75% Diet Tolerated Well Well Lunch 75% Supper 50% Temperature 98.9 F Pulse Rate 106 H Blood Pressure 116/73 Laboratory Tests 06/24/20 08:00 WBC 8.9 Impulsive self feeding during mbs. Cognitive performance seems to vary Provide verbal cues to take small bites, chew well, swallow before next trial If impulsivity persists, please cut up food in small pieces. Supervision meal time Pt seen oob, c/o stomach pain. Message left for Nursing
[2020-06-24 11:51] LABS: EPI CELLS >36 /uL (0-25.1); HYALINE CASTS 4 /uL (0-3.1); PH,URINE 5.5 (5.0-8.0); URINE APPEARANCE CLOUDY; URINE BACTERIA 1326 /uL (0-1359); URINE BILIRUBIN NEGATIVE (NEGATIVE); URINE COLOR YELLOW; URINE GLUCOSE (UA) NEGATIVE (NEGATIVE); URINE KETONE TRACE (NEGATIVE); URINE LEUK ESTERASE TRACE (NEGATIVE); URINE NITRITE NEGATIVE (NEGATIVE); URINE PROTEIN NEGATIVE (NEGATIVE); URINE RBC 5 /uL (0-23.9); URINE WBC 33 /uL (0-25.8)
[2020-06-24] MEDS: CEFUROXIME AXETIL 500 MG TABLET PO SCH ×2 (13:30→21:35)
--- NOTE | 2020-06-24 13:53 | PN ---
Progress Note, Physician History of Present Illness: Ms. Lamb is a 69 yr old woman (b. [place]) with h/o Parkinson's, afib, CAD s/p CABG, cardiac arrest, DM, HTN, HLD, diastolic CHF with moderately decreased RVEF, hx STEMI 10/2018, s/p fina clip p/w abd pain, s/p hematoma, now brought to ED by family after they noticed slurred speech and facial droop. Pt currently AOx2 (not time) and endorses pain in her knees bilaterally. Pt's apixaban had not been taken for about a week due to refill issues. - Current Medication List Current Medications: Active Medications Acetaminophen (Tylenol -) 500 mg PO Q4H PRN PRN Reason: PAIN 1-3 Al Hydroxide/Mg Hydroxide (Mylanta Oral Suspension -) 30 ml PO Q6H PRN PRN Reason: DYSPEPSIA Last Admin: 06/23/20 23:05 Dose: 30 ml Documented by: Apixaban (Eliquis -) 2.5 mg PO BID [facility] Last Admin: 06/24/20 10:00 Dose: 2.5 mg Documented by: Aspirin (Asa -) 81 mg PO DAILY [facility] Last Admin: 06/24/20 10:00 Dose: 81 mg Documented by: Atorvastatin Calcium (Lipitor -) 80 mg PO HS [facility] Last Admin: 06/23/20 21:04 Dose: 80 mg Documented by: Benztropine Mesylate (Cogentin -) 0.5 mg PO BID [facility] Last Admin: 06/24/20 10:00 Dose: 0.5 mg Documented by: Carbidopa/Levodopa (Sinemet 25/100 -) 1 each PO TID [facility] Last Admin: 06/24/20 13:30 Dose: 1 each Documented by: Cefuroxime Axetil (Ceftin -) 500 mg PO BID [facility] Last Admin: 06/24/20 13:30 Dose: 500 mg Documented by: Docusate Sodium (Colace -) 100 mg PO BID PRN PRN Reason: CONSTIPATION Last Admin: 06/23/20 21:04 Dose: 100 mg Documented by: Famotidine (Acid Veneer Matcher) 10 mg PO DAILY [facility] Last Admin: 06/24/20 10:00 Dose: 10 mg Documented by: Furosemide (Lasix -) 20 mg PO DAILY [facility] Last Admin: 06/24/20 10:00 Dose: 20 mg Documented by: Insulin Aspart (Novolog Vial Sliding Scale -) 1 vial SQ ACHS [facility]; Protocol Last Admin: 06/24/20 11:52 Dose: 2 units Documented by: Insulin Detemir (Levemir Vial) 5 units SQ AM [facility] Last Admin: 06/24/20 06:24 Dose: 5 units Documented by: Metoprolol Succinate (Toprol Xl -) 100 mg PO DAILY [facility] Last Admin: 06/24/20 10:00 Dose: 100 mg Documented by: Polyethylene Glycol (Miralax (For Daily Use) -) 17 gm PO DAILY [facility] Last Admin: 06/24/20 10:15 Dose: Not Given Documented by: Simethicone (Mylicon -) 80 mg PO Q4H PRN PRN Reason: DYSPEPSIA Last Admin: 06/23/20 21:04 Dose: 80 mg Documented by: Tiotropium [place] (Spiriva Respimat) 2 puff IH DAILY [facility] Last Admin: 06/24/20 10:01 Dose: 2 puff Documented by: - Objective Vital Signs: Vital Signs Temperature 98.9 F 06/24/20 06:00 Pulse Rate 106 H 06/24/20 06:00 Respiratory Rate 18 06/24/20 06:00 Blood Pressure 116/73 06/24/20 06:00 O2 Sat by Pulse Oximetry (%) 100 06/24/20 06:00 Eyes: Yes: WNL, Conjunctiva Clear, EOM Intact HENT: Yes: WNL, Atraumatic, Normocephalic Neck: Yes: WNL, Supple, Trachea Midline Cardiovascular: Yes: WNL, Regular Rate and Rhythm Respiratory: Yes: WNL, Regular, CTA Bilaterally Gastrointestinal: Yes: WNL, Normal Bowel Sounds Genitourinary: Yes: WNL Musculoskeletal: Yes: WNL Extremities: Yes: WNL Edema: No Integumentary: Yes: WNL Neurological: Yes: Alert Labs: CBC, BMP 06/24/20 08:00 06/24/20 08:00 INR, PTT INR 1.30 (0.83-1.09) H 06/17/20 05:38 Problem List - Problems (1) Atrial fibrillation Code(s): I48.91 - UNSPECIFIED ATRIAL FIBRILLATION Qualifiers: Atrial fibrillation type: unspecified Qualified Code(s): I48.91 - Unspecified atrial fibrillation (2) Cardiac arrest with successful resuscitation Code(s): I46.9 - CARDIAC ARREST, CAUSE UNSPECIFIED (3) Cerebrovascular accident (CVA) Code(s): I63.9 - CEREBRAL INFARCTION, UNSPECIFIED Qualifiers: CVA mechanism: unspecified Qualified Code(s): I63.9 - Cerebral infarction, unspecified (4) Hx of CABG Code(s): Z95.1 - PRESENCE OF AORTOCORONARY BYPASS GRAFT (5) STEMI (ST elevation myocardial infarction) Code(s): I21.3 - ST ELEVATION (STEMI) MYOCARDIAL INFARCTION OF UNS SITE (6) CHF exacerbation Code(s): I50.9 - HEART FAILURE, UNSPECIFIED (7) Chest pain, atypical Code(s): R07.89 - OTHER CHEST PAIN (8) Chronic pain of both knees Code(s): M25.561 - PAIN IN RIGHT KNEE; M25.562 - PAIN IN LEFT KNEE; G89.29 - OTHER CHRONIC PAIN (9) DVT prophylaxis Code(s): Z29.9 - ENCOUNTER FOR PROPHYLACTIC MEASURES, UNSPECIFIED (10) Dementia Code(s): F03.90 - UNSPECIFIED DEMENTIA WITHOUT BEHAVIORAL DISTURBANCE (11) Depression Code(s): F32.9 - MAJOR DEPRESSIVE DISORDER, SINGLE EPISODE, UNSPECIFIED (12) Diabetes Code(s): E11.9 - TYPE 2 DIABETES MELLITUS WITHOUT COMPLICATIONS (13) Diastolic CHF Code(s): I50.30 - UNSPECIFIED DIASTOLIC (CONGESTIVE) HEART FAILURE (14) Heart failure, chronic, with acute decompensation Code(s): I50.9 - HEART FAILURE, UNSPECIFIED Qualifiers: Heart failure type: diastolic Qualified Code(s): I50.33 - Acute on chronic diastolic (congestive) heart failure (15) Hepatic congestion Code(s): K76.1 - CHRONIC PASSIVE CONGESTION OF LIVER (16) Parkinson disease Code(s): G20 - PARKINSON'S DISEASE (17) Parkinsonism Code(s): G20 - PARKINSON'S DISEASE (18) Prophylactic measure Code(s): Z29.9 - ENCOUNTER FOR PROPHYLACTIC MEASURES, UNSPECIFIED (19) Rectus sheath hematoma Code(s): S30.1XXA - CONTUSION OF ABDOMINAL WALL, INITIAL ENCOUNTER (20) Splenic infarct Code(s): D73.5 - INFARCTION OF SPLEEN (21) Spondylosis with compression of nerve root of lumbosacral region Code(s): M47.27 - OTHER SPONDYLOSIS WITH RADICULOPATHY, LUMBOSACRAL REGION (22) Status post fall Code(s): Z91.81 - HISTORY OF FALLING (23) Status post implantation of mitral valve leaflet clip Code(s): Z98.890 - OTHER SPECIFIED POSTPROCEDURAL STATES; Z95.818 - PRESENCE OF OTHER CARDIAC IMPLANTS AND GRAFTS (24) Supratherapeutic INR Code(s): R79.1 - ABNORMAL COAGULATION PROFILE (25) Syncope and collapse Code(s): R55 - SYNCOPE AND COLLAPSE (26) Acute on chronic systolic and diastolic heart failure, NYHA class 1 Code(s): I50.43 - ACUTE ON CHRONIC COMBINED SYSTOLIC AND DIASTOLIC HRT FAIL (27) Anemia Code(s): D64.9 - ANEMIA, UNSPECIFIED (28) Atrial fibrillation with rapid ventricular response Code(s): I48.91 - UNSPECIFIED ATRIAL FIBRILLATION (29) FH: mitral valve repair Code(s): Z82.49 - FAMILY HX OF ISCHEM HEART DIS AND OTH DIS OF THE CIRC SYS (30) HTN (hypertension) Code(s): I10 - ESSENTIAL (PRIMARY) HYPERTENSION Qualifiers: Hypertension type: unspecified Qualified Code(s): I10 - Essential (primary) hypertension (31) Hyperlipidemia Code(s): E78.5 - HYPERLIPIDEMIA, UNSPECIFIED Qualifiers: Hyperlipidemia type: pure hypercholesterolemia Qualified Code(s): E78.00 - Pure hypercholesterolemia, unspecified; E78.0 - Pure hypercholesterolemia (32) Hypothyroid Code(s): E03.9 - HYPOTHYROIDISM, UNSPECIFIED (33) Memory deficit Code(s): R41.3 - OTHER AMNESIA (34) Need for assistance due to unsteady gait Code(s): R26.89 - OTHER ABNORMALITIES OF GAIT AND MOBILITY (35) Parkinson disease Code(s): G20 - PARKINSON'S DISEASE (36) Parkinsonian tremor Code(s): G20 - PARKINSON'S DISEASE (37) S/P mitral valve repair Code(s): Z98.890 - OTHER SPECIFIED POSTPROCEDURAL STATES (38) Shortness of breath Code(s): R06.02 - SHORTNESS OF BREATH (39) Subcortical dementia Code(s): F03.90 - UNSPECIFIED DEMENTIA WITHOUT BEHAVIORAL DISTURBANCE (40) Systolic CHF Code(s): I50.20 - UNSPECIFIED SYSTOLIC (CONGESTIVE) HEART FAILURE (41) T2DM (type 2 diabetes mellitus) Code(s): E11.9 - TYPE 2 DIABETES MELLITUS WITHOUT COMPLICATIONS Qualifiers: Diabetes mellitus longterm insulin use: unspecified longterm insulin use status Diabetes mellitus complication status: with unspecified complications (42) Tardive dyskinesia Code(s): G24.01 - DRUG INDUCED SUBACUTE DYSKINESIA (43) Chest pain Code(s): R07.9 - CHEST PAIN, UNSPECIFIED (44) Hypomagnesemia Code(s): E83.42 - HYPOMAGNESEMIA (45) PNA (pneumonia) Code(s): J18.9 - PNEUMONIA, UNSPECIFIED ORGANISM Qualifiers: Pneumonia type: due to unspecified organism Laterality: bilateral Lung location: unspecified part of lung Qualified Code(s): J18.9 - Pneumonia, unspecified organism (46) Respiratory distress Code(s): R06.03 - ACUTE RESPIRATORY DISTRESS (47) Viral illness Code(s): B34.9 - VIRAL INFECTION, UNSPECIFIED Assessment/Plan Acute CVA possibly from stopping apixaban; ? chronic CVA AF; noncompliance to apixaban for at least the past week Hx STEMI; s/p cardiac arrest now with elevated TNI: multiple contributers to demand ischemia Systolic (mildly reduced LVEF)/diastolic CHF; hx significantly reduced RVEF (most recent ECHO: normal RVEF; mild CHIN);s/p fina clip hyperlipidemia Parkinson's disease obesity DM hypomagnesemia: repleted Depression, exacerbated by recent of her Plan: COVID negative. Apixaban restarted; also on ASA. Continue metoprolol for HR control. On levo carbidopa ECHO: mildly reduced LVEF; normal RVEF and RV size; moderate LAE; CHIN; moderately severe TR; mild-moderate pulmonary HTN Start lisinopril 2.5 mg daily, unless contraindications exist (HTN; DM; systolic CHF; CAD). F/u TNI and EKG serially. replete Mg; f/u all electrolytes. Increase Atorvastatin to 80 mg daily.
--- NOTE | 2020-06-24 15:21 | PN ---
Physical Exam: SUBJECTIVE: Patient seen and examined at the beside. Per FAM, patient to be picked up today by her son. APS now involved in patient case. OBJECTIVE: Patient is a 69 year old female w/PMH of tardive dyskinesia, Parkinsons disease, afib (has not taken eliquis for past week due to refill issue), CAD s/p CABG, cardiac arrest s/p ROSC, DM, HTN, HLD, CHF, STEMI w/ use of IABP, splenic infarct, Mitral regurgitation s/p mitral-clip brought to ED by family after they noticed slurred speech and facial droop. patient for d/c home today has UTI per UA, UC pending, start on Ceftin 500mg x 5 days Vital Signs Period Temp Pulse Resp BP Sys/Cast[place]ilo Pulse Ox Last 24 Hr 97 F-98.9 F 78-106 18-22 108-130/63-86 95-100 GENERAL: The patient is awake, alert, and fully oriented, in no acute distress. HEAD: Normal with no signs of trauma. EYES: PERRL, extraocular movements intact, sclera anicteric, conjunctiva clear. No ptosis. ENT: Ears normal, nares patent, oropharynx clear without exudates NECK: Trachea midline, full range of motion, supple. LUNGS: Breath sounds equal, clear to auscultation bilaterally HEART: Regular rate and rhythm ABDOMEN: Soft, nontender, nondistended, normoactive bowel sounds EXTREMITIES: no edema. NEUROLOGICAL: Normal speech, gait not observed. PSYCH: Normal mood, normal affect. SKIN: Warm, dry, normal turgor, no rashes or lesions noted Laboratory Results - last 24 hr 06/23/20 06/23/20 06/24/20 16:53 22:03 06:23 WBC RBC Hgb Hct MCV MCH MCHC RDW Plt Count MPV Absolute Neuts (auto) Neutrophils % Lymphocytes % Monocytes % Eosinophils % Basophils % Nucleated RBC % Sodium Potassium Chloride Carbon Dioxide Anion Gap BUN Creatinine Est GFR (CKD-EPI)AfAm Est GFR (CKD-EPI)NonAf POC Glucometer 138 190 119 Random Glucose Calcium Total Bilirubin AST ALT Alkaline Phosphatase Total Protein Albumin Urine Color Urine Appearance Urine pH Ur Specific [place] Urine Protein Urine Glucose (UA) Urine Ketones Urine Blood Urine Nitrite Urine Bilirubin Urine Urobilinogen Ur Leukocyte Esterase Urine WBC (Auto) Urine RBC (Auto) Urine Casts (Auto) U Epithel Cells (Auto) Urine Bacteria (Auto) 06/24/20 06/24/20 06/24/20 08:00 08:00 10:53 WBC 8.9 RBC 4.89 Hgb 13.1 Hct 40.6 MCV 83.1 MCH 26.8 MCHC 32.3 RDW 16.8 H Plt Count 333 MPV 9.1 Absolute Neuts (auto) 5.5 Neutrophils % 61.6 Lymphocytes % 28.4 D Monocytes % 7.9 Eosinophils % 1.5 D Basophils % 0.6 Nucleated RBC % 0 Sodium 139 Potassium 3.8 Chloride 105 Carbon Dioxide 26 Anion Gap 7 L BUN 17.3 Creatinine 0.8 Est GFR (CKD-EPI)AfAm 87.18 Est GFR (CKD-EPI)NonAf 75.22 POC Glucometer Random Glucose 166 H Calcium 9.3 Total Bilirubin 0.9 AST 19 ALT 8 L Alkaline Phosphatase 82 Total Protein 8.2 Albumin 3.3 L Urine Color Yellow Urine Appearance Cloudy Urine pH 5.5 Ur Specific [place] 1.015 Urine Protein Negative Urine Glucose (UA) Negative Urine Ketones Trace H Urine Blood Negative Urine Nitrite Negative Urine Bilirubin Negative Urine Urobilinogen 1.0 Ur Leukocyte Esterase Trace Urine WBC (Auto) 33 Urine RBC (Auto) 5 Urine Casts (Auto) 4 U Epithel Cells (Auto) >36 Urine Bacteria (Auto) 1326 06/24/20 11:38 WBC RBC Hgb Hct MCV MCH MCHC RDW Plt Count MPV Absolute Neuts (auto) Neutrophils % Lymphocytes % Monocytes % Eosinophils % Basophils % Nucleated RBC % Sodium Potassium Chloride Carbon Dioxide Anion Gap BUN Creatinine Est GFR (CKD-EPI)AfAm Est GFR (CKD-EPI)NonAf POC Glucometer 197 Random Glucose Calcium Total Bilirubin AST ALT Alkaline Phosphatase Total Protein Albumin Urine Color Urine Appearance Urine pH Ur Specific [place] Urine Protein Urine Glucose (UA) Urine Ketones Urine Blood Urine Nitrite Urine Bilirubin Urine Urobilinogen Ur Leukocyte Esterase Urine WBC (Auto) Urine RBC (Auto) Urine Casts (Auto) U Epithel Cells (Auto) Urine Bacteria (Auto) Active Medications Generic Name Dose Route Start Last Admin Trade Name Freq PRN Reason Stop Dose Admin Acetaminophen 500 mg 06/22/20 14:43 Tylenol - PO Q4H PRN PAIN 1-3 Al Hydroxide/Mg Hydroxide 30 ml 06/23/20 11:19 06/23/20 23:05 Mylanta Oral Suspension - PO 30 ml Q6H PRN Administration DYSPEPSIA Apixaban 2.5 mg 06/22/20 22:00 06/24/20 10:00 Eliquis - PO 2.5 mg BID JESSICA Administration Aspirin 81 mg 06/23/20 10:00 06/24/20 10:00 Asa - PO 81 mg DAILY JESSICA Administration Atorvastatin Calcium 80 mg 06/22/20 22:00 06/23/20 21:04 Lipitor - PO 80 mg HS JESSICA Administration Benztropine Mesylate 0.5 mg 06/22/20 22:00 06/24/20 10:00 Cogentin - PO 0.5 mg BID JESSICA Administration Carbidopa/Levodopa 1 each 06/22/20 22:00 06/24/20 13:30 Sinemet 25/100 - PO 1 each TID JESSICA Administration Cefuroxime Axetil 500 mg 06/24/20 13:00 06/24/20 13:30 Ceftin - PO 500 mg BID JESSICA Administration Docusate Sodium 100 mg 06/22/20 14:43 06/23/20 21:04 Colace - PO 100 mg BID PRN Administration CONSTIPATION Famotidine 10 mg 06/23/20 10:00 06/24/20 10:00 Acid Body Team Member PO 10 mg DAILY JESSICA Administration Furosemide 20 mg 06/23/20 10:00 06/24/20 10:00 Lasix - PO 20 mg DAILY JESSICA Administration Insulin Aspart 1 vial 06/22/20 16:30 06/24/20 11:52 Novolog Vial Sliding Scale - SQ 2 units ACHS [facility] Administration Protocol Insulin Detemir 5 units 06/23/20 07:00 06/24/20 06:24 Levemir Vial SQ 5 units AM JESSICA Administration Metoprolol Succinate 100 mg 06/23/20 10:00 06/24/20 10:00 Toprol Xl - PO 100 mg DAILY JESSICA Administration Polyethylene Glycol 17 gm 06/23/20 10:00 06/24/20 10:15 Miralax (For Daily Use) - PO Not Given DAILY [facility] Simethicone 80 mg 06/23/20 11:18 06/23/20 21:04 Mylicon - PO 80 mg Q4H PRN Administration DYSPEPSIA Tiotropium [place] 2 puff 06/23/20 10:00 06/24/20 10:01 Spiriva Respimat IH 2 puff DAILY JESSICA Administration ASSESSMENT/PLAN: # Cerebrovascular accident (CVA) neuorology following- stable for dc home, pending family grape picker c/w eliquis c/w PT carotid dopplers nml dispo to home, awaiting son to pick her up as patient is locked out of her home. APS involved. #Constipation on a bowel regimen #Hx of CABG on eliquis,asa #STEMI (ST elevation myocardial infarction) previous STEMI c/w metoprolol #Atrial fibrillation rate controlled c/w metoprolol c/w eliquis-no bleed on MRI-home dose 2.5mg will c/w dose # Parkinson disease c/w sinemet and cogentin supportive care #urinary frequency start on ceftin 500mg bid, uc pending she is afebrile # Prophylactic measure Visit type - Emergency Visit Emergency Visit: Yes ED Registration Date: 06/14/20 Care time: The patient presented to the Emergency Department on the above date and was hospitalized for further evaluation of their emergent condition. - New Patient This patient is new to me today: No - Critical Care Critical Care patient: No - Discharge Referral Referred to [facility] Med P.C[facility] No - Medication Review Med list reviewed for High Risk Meds patients 65 and older: Yes
[2020-06-24] MEDS: ACETAMINOPHEN 500 MG TABLET (FP) PO PRN (21:34)
[2020-06-24] MEDS: ATORVASTATIN CA 80 MG TABLET (FP) PO SCH (21:36)
[2020-06-25 06:23] VITALS: TEMP 98
[2020-06-25] MEDS: INSULIN SLIDING SCALE (NOVOLOG) 1 VIAL SQ SCH ×2 (06:23→11:50)
[2020-06-25] MEDS: CARBIDOPA/LEVODOPA 25/100 TABLET (FP) PO SCH (06:24)
[2020-06-25] MEDS: INSULIN (LEVEMIR) 100 UNITS/ML UNITS SQ SCH (06:24)
[2020-06-25] MEDS ORDERED: PT OWN MED DRAWER 7, Y5N ONE ×2 (06:56→09:46)
[2020-06-25] MEDS: ACETAMINOPHEN 500 MG TABLET (FP) PO PRN (07:34)
[2020-06-25] MEDS: ASPIRIN 81 MG CHEWABLE TABLETS PO SCH (09:49)
[2020-06-25] MEDS: CEFUROXIME AXETIL 500 MG TABLET PO SCH (09:49)
[2020-06-25] MEDS: APIXABAN 2.5 MG TABLET PO SCH (09:49)
[2020-06-25] MEDS: FUROSEMIDE 20 MG TABLET (FP) PO SCH (09:50)
[2020-06-25] MEDS: FAMOTIDINE 10 MG TABLET PO SCH (09:50)
[2020-06-25] MEDS: BENZTROPINE MESYLATE 0.5 MG TABLET (FP) PO SCH (09:50)
[2020-06-25] MEDS: TIOTROPIUM BROMIDE 2.5 MCG (SPIRIVA) RESPIMAT INHALER IH SCH (09:54)
[2020-06-25] MEDS: POLYETHYLENE GLYCOL 3350 119 GM BTL PO SCH (09:55)
[2020-06-25 09:59] VITALS: BP 100/63; PULSE 88
== END 2020-06-25 11:35 | disposition home health service (06) | DRG 65 ==
LOC: JER 21:01 → JERBED 23:15 → J4W 06-15 10:28 → J6S 06-22 14:35
PROVIDERS: ADMIT Internal Medicine; ATTEND Nurse Practitioner Family
DX: I63.9 Cerebral infarction, unspecified (principal); I50.32 Chronic diastolic (congestive) heart failure; I48.91 Unspecified atrial fibrillation; Z79.01 Long term (current) use of anticoagulants; G20 Parkinson's disease; I25.10 Atherosclerotic heart disease of native coronary artery without angina pectoris; Z95.1 Presence of aortocoronary bypass graft; E11.9 Type 2 diabetes mellitus without complications; I25.2 Old myocardial infarction; E78.5 Hyperlipidemia, unspecified; R29.711 NIHSS score 11; Z79.4 Long term (current) use of insulin; Z86.74 Personal history of sudden cardiac arrest; E66.9 Obesity, unspecified; Z68.27 Body mass index [BMI] 27.0-27.9, adult; I11.0 Hypertensive heart disease with heart failure; E83.42 Hypomagnesemia; M25.561 Pain in right knee; M25.562 Pain in left knee; F03.90 Unspecified dementia, unspecified severity, without behavioral disturbance, psychotic disturbance, mood disturbance, and anxiety; F32.9 Major depressive disorder, single episode, unspecified; Z95.2 Presence of prosthetic heart valve; I36.1 Nonrheumatic tricuspid (valve) insufficiency; I27.20 Pulmonary hypertension, unspecified; Z91.14 Patient's other noncompliance with medication regimen; K59.00 Constipation, unspecified; G24.01 Drug induced subacute dyskinesia; R35.0 Frequency of micturition
CPT/HCPCS: 36415; 70450-TC; 70544-TC; 70551-TC; 71045-TC-FY; 74230-TC-FY; 80048; 80053; 80061; 81003; 82550; 82962; 83036; 83721; 83735; 84100; 84436; 84439; 84443; 84484; 85025; 85610; 85730; 86850; 86900; 86901; 87086; 92611-GN; 93005; 93010; 93306-TC; 93880-TC; 97116-GP; 97161-GP; 99285-25; U0003

== ENCOUNTER 2021-10-31 19:32 | Observation (INO) | payer OTHER ==
[2021-10-31 20:39] VITALS: BMI 27.4
[2021-11-01 02:52] LABS: HEMATOCRIT 31.1 % (32.4-45.2); HEMOGLOBIN 9.6 GM/dL (10.7-15.3); MCH 21.9 pg (25.7-33.7); MCHC 30.9 g/dl (32.0-36.0); MEAN CELL VOLUME 70.9 fl (80-96); MEAN PLT VOLUME 7.6 fl (7.5-11.1); PLATELET COUNT 200 10^3/uL (134-434); RBC 4.39 M/mm3 (3.60-5.2); RDW 18.4 % (11.6-15.6); WHITE BLOOD COUNT 9.9 K/mm3 (4.0-10.0)
[2021-11-01 03:05] LABS: CHLORIDE 102 mmol/L (98-107)
[2021-11-01 03:08] LABS: BLOOD UREA NITROGEN 33.7 mg/dL (7-18); CO2 21 mmol/L (21-32); GLUCOSE,RANDOM 149 mg/dL (74-106)
[2021-11-01 03:10] LABS: CREATININE 0.9 mg/dL (0.55-1.3); SGOT/AST 16 U/L (15-37)
[2021-11-01 03:11] LABS: SGPT/ALT 21 U/L (13-61)
[2021-11-01 03:12] LABS: BILIRUBIN,TOTAL 0.3 mg/dL (0.2-1); TOT PROT 7.6 g/dl (6.4-8.2)
[2021-11-01 03:13] LABS: ALK PHOS 78 U/L (45-117)
[2021-11-01 03:16] LABS: N-TERMINAL BNP 2947.7 pg/ml (5-125)
[2021-11-01 03:32] LABS: ANION GAP 10 MMOL/L (8-16); SODIUM 133 mmol/L (136-145)
[2021-11-01] MEDS ORDERED: ACETAMINOPHEN 1000 MG/100 ML BAG IVPB ONE (04:32)
[2021-11-01] MEDS ORDERED: ACETAMINOPHEN INJECTION 100 ML IVPB ONE (04:34)
[2021-11-01 05:16] LABS: URINE APPEARANCE CLEAR; URINE BILIRUBIN NEGATIVE (NEGATIVE); URINE COLOR YELLOW; URINE GLUCOSE (UA) NEGATIVE (NEGATIVE); URINE KETONE NEGATIVE (NEGATIVE); URINE LEUK ESTERASE NEGATIVE (NEGATIVE); URINE NITRITE NEGATIVE (NEGATIVE); URINE PROTEIN NEGATIVE (NEGATIVE); URINE UROBILINOGEN 0.2 mg/dL (0.2-1.0)
[2021-11-01] MEDS ORDERED: FUROSEMIDE 20 MG TABLET (FP) PO SCH (10:00)
[2021-11-01] MEDS ORDERED: LISINOPRIL 5 MG TABLET ONE (10:57)
[2021-11-01] MEDS ORDERED: FUROSEMIDE 40 MG TABLET (FP) ONE (10:57)
[2021-11-01] MEDS: LISINOPRIL 5 MG TABLET PO SCH (11:01)
[2021-11-01 11:29] LABS: EPI CELLS 15 /uL (0-25.1); HYALINE CASTS 0 /uL (0-3.1); URINE APPEARANCE CLEAR; URINE BACTERIA 485 /uL (0-1359); URINE BILIRUBIN NEGATIVE (NEGATIVE); URINE COLOR YELLOW; URINE GLUCOSE (UA) NEGATIVE (NEGATIVE); URINE KETONE NEGATIVE (NEGATIVE); URINE LEUK ESTERASE TRACE (NEGATIVE); URINE NITRITE NEGATIVE (NEGATIVE); URINE PROTEIN NEGATIVE (NEGATIVE); URINE RBC 30 /uL (0-23.9); URINE UROBILINOGEN 0.2 mg/dL (0.2-1.0); URINE WBC 23 /uL (0-25.8)
[2021-11-01] MEDS: INSULIN SLIDING SCALE (NOVOLOG) 1 VIAL SQ SCH ×3 (12:00→22:09)
[2021-11-01] MEDS ORDERED: CARBIDOPA/LEVODOPA 25/100 TABLET (FP) PO SCH (14:00)
[2021-11-01] MEDS ORDERED: CARBIDOPA/LEVODOPA 25/100 TABLET (FP) ONE ×2 (18:24→21:32)
[2021-11-01] MEDS: CEFTRIAXONE 1 GM in DEXTROSE 5%-WATER - 50 ML IVPB SCH (18:25)
[2021-11-01] MEDS ORDERED: CEFTRIAXONE 1 GM/50 ML BAG ONE (18:25)
[2021-11-01] MEDS: CARBIDOPA/LEVODOPA 25/100 TABLET (FP) PO SCH ×2 (18:25→22:09)
[2021-11-01 20:40] LABS: CHOLESTEROL 172 mg/dL (50-200)
[2021-11-01 20:41] LABS: LDL CHOLESTEROL (ONLY SJRH) 97 mg/dL (5-100)
[2021-11-01 20:42] LABS: TRIGLYCERIDES 191 mg/dL (0-150)
[2021-11-01 20:44] LABS: HDL CHOLESTEROL 37 mg/dL (40-60)
[2021-11-01] MEDS ORDERED: APIXABAN 5 MG TABLET ONE (21:31)
[2021-11-01] MEDS ORDERED: MELATONIN 5 MG TABLETS PO ONE (21:54)
[2021-11-01] MEDS: APIXABAN 2.5 MG TABLET PO SCH (22:09)
[2021-11-02] MEDS ORDERED: LORazepam 2 MG/ML SDV VIAL IM ONE (05:06)
[2021-11-02] MEDS ORDERED: INSULIN (LEVEMIR) 100 UNITS/ML UNITS SQ SCH (07:00)
[2021-11-02 07:15] LABS: BASO % 0.5 % (0-2.0); EOS % 0.8 % (0-4.5); HEMATOCRIT 32.6 % (32.4-45.2); MCH 21.9 pg (25.7-33.7); MCHC 30.7 g/dl (32.0-36.0); MEAN CELL VOLUME 71.2 fl (80-96); MEAN PLT VOLUME 7.7 fl (7.5-11.1); MONO % 7.8 % (3.8-10.2); NEUT % 73.9 % (42.8-82.8); PLATELET COUNT 502 10^3/uL (134-434); RBC 4.57 M/mm3 (3.60-5.2); RDW 18.3 % (11.6-15.6); WHITE BLOOD COUNT 8.1 K/mm3 (4.0-10.0)
[2021-11-02 07:27] LABS: CALCIUM 9.4 mg/dL (8.5-10.1)
[2021-11-02 07:28] LABS: MAGNESIUM 2.2 mg/dL (1.8-2.4)
[2021-11-02 07:30] LABS: ALBUMIN 3.1 g/dl (3.4-5.0); BLOOD UREA NITROGEN 25.1 mg/dL (7-18)
[2021-11-02 07:31] LABS: CREATININE 0.9 mg/dL (0.55-1.3)
[2021-11-02 07:33] LABS: PHOSPHOROUS 3.9 mg/dL (2.5-4.9)
[2021-11-02 07:34] LABS: BILIRUBIN,TOTAL 0.8 mg/dL (0.2-1)
[2021-11-02 07:43] LABS: INR 1.36 (0.83-1.09); PROTHROMBIN TIME (PATIENT) 15.7 SEC (9.7-13.0)
[2021-11-02] MEDS: INSULIN SLIDING SCALE (NOVOLOG) 1 VIAL SQ SCH ×4 (08:58→22:19)
[2021-11-02] MEDS ORDERED: APIXABAN 5 MG TABLET ONE (09:06)
[2021-11-02] MEDS ORDERED: LISINOPRIL 5 MG TABLET ONE (09:06)
[2021-11-02] MEDS ORDERED: CEFTRIAXONE 1 GM/50 ML BAG ONE (09:07)
[2021-11-02] MEDS ORDERED: CARBIDOPA/LEVODOPA 25/100 TABLET (FP) ONE (09:07)
[2021-11-02] MEDS ORDERED: metoPROLOL SUCCINATE 25 MG TAB.SR.24H (FP) ONE (09:07)
[2021-11-02] MEDS: APIXABAN 2.5 MG TABLET PO SCH (09:19)
[2021-11-02] MEDS: CARBIDOPA/LEVODOPA 25/100 TABLET (FP) PO SCH ×2 (09:19→22:19)
[2021-11-02] MEDS: LISINOPRIL 5 MG TABLET PO SCH (09:19)
[2021-11-02] MEDS: CEFTRIAXONE 1 GM in DEXTROSE 5%-WATER - 50 ML IVPB SCH (09:19)
[2021-11-02] MEDS ORDERED: METOPROLOL SUCCINATE 100 MG, METOPROLOL SUCCINATE 25 MG PO SCH (10:00)
[2021-11-02 12:51] LABS: ANISOCYTOSIS 1+; MACROCYTOSIS 1+; PLATELET ESTIMATE INCREASED
[2021-11-02] MEDS ORDERED: ATORVASTATIN CA 40 MG TABLET (FP) PO SCH ×2 (22:00)
[2021-11-02] MEDS: APIXABAN 5 MG TABLET PO SCH (22:19)
[2021-11-03] MEDS: INSULIN SLIDING SCALE (NOVOLOG) 1 VIAL SQ SCH ×2 (06:39→12:45)
[2021-11-03] MEDS: CARBIDOPA/LEVODOPA 25/100 TABLET (FP) PO SCH ×2 (06:43→14:53)
[2021-11-03] MEDS ORDERED: INSULIN (LEVEMIR) 100 UNITS/ML UNITS SQ SCH (07:00)
[2021-11-03] MEDS ORDERED: metoPROLOL SUCCINATE 25 MG TAB.SR.24H (FP) ONE (09:55)
[2021-11-03] MEDS ORDERED: LISINOPRIL 5 MG TABLET PO SCH (10:00)
[2021-11-03] MEDS ORDERED: METOPROLOL SUCCINATE 100 MG, METOPROLOL SUCCINATE 25 MG PO SCH (10:00)
[2021-11-03] MEDS: APIXABAN 5 MG TABLET PO SCH (10:10)
[2021-11-03 14:42] VITALS: BP 137/88; PULSE 115; TEMP 97.4
== END 2021-11-03 17:07 | disposition home or self-care (01) ==
LOC: JER 19:32 → JERBED 11-01 00:40 → J4W 11-02 14:01 → J7W 11-02 18:04
PROVIDERS: ADMIT Internal Medicine; ATTEND Nurse Practitioner Acute Care
PROC: 3E033NZ Introduction of Analgesics, Hypnotics, Sedatives into Peripheral Vein, Percutaneous Approach (ICD-10-PCS; principal; 2021-11-01)
PROC: 3E03329 Introduction of Other Anti-infective into Peripheral Vein, Percutaneous Approach (ICD-10-PCS; 2021-11-01)
PROC: 3E013VG Introduction of Insulin into Subcutaneous Tissue, Percutaneous Approach (ICD-10-PCS; 2021-11-01)
PROC: 3E023GC Introduction of Other Therapeutic Substance into Muscle, Percutaneous Approach (ICD-10-PCS; 2021-11-01)
DX: I11.0 Hypertensive heart disease with heart failure (principal); I50.30 Unspecified diastolic (congestive) heart failure; D50.9 Iron deficiency anemia, unspecified; I25.810 Atherosclerosis of coronary artery bypass graft(s) without angina pectoris; E78.5 Hyperlipidemia, unspecified; I46.9 Cardiac arrest, cause unspecified; T14.8XXA Other injury of unspecified body region, initial encounter; E11.9 Type 2 diabetes mellitus without complications; Z29.9 Encounter for prophylactic measures, unspecified; F02.80 Dementia in other diseases classified elsewhere, unspecified severity, without behavioral disturbance, psychotic disturbance, mood disturbance, and anxiety; I48.91 Unspecified atrial fibrillation; Z79.4 Long term (current) use of insulin; G24.01 Drug induced subacute dyskinesia; D64.9 Anemia, unspecified; R07.89 Other chest pain; Z95.1 Presence of aortocoronary bypass graft; X58.XXXA Exposure to other specified factors, initial encounter; Y93.39 Activity, other involving climbing, rappelling and jumping off
CPT/HCPCS: 36415; 70450-TC; 71046-TC-FY; 80053; 80061; 81003; 82465; 82962; 83036; 83718; 83721; 83735; 83880; 84100; 84443; 84478; 84484; 85025; 85027; 85610; 87086; 93005; 93010; 93306-TC; 96365; 96372; 96375; 97116-GP; 97161-GP; 99285-25; C9803; G0378; J0131; U0003; U0005

== ENCOUNTER 2021-11-05 02:32 | Inpatient (IN) | payer OTHER ==
[2021-11-05] MEDS ORDERED: morphine CARPU-JECT 2 MG/1 ML DISP.SYRIN IVPUSH ONE (03:47)
[2021-11-05] MEDS ORDERED: SODIUM CHLORIDE 0.9% 500 ML INFUS.BAG IV ONE (03:47)
[2021-11-05 04:10] LABS: BASO % 0.7 % (0-2.0); EOS % 0.7 % (0-4.5); HEMATOCRIT 33.7 % (32.4-45.2); HEMOGLOBIN 10.5 GM/dL (10.7-15.3); LYMPH % 13.3 % (8-40); MCH 21.9 pg (25.7-33.7); MCHC 31.1 g/dl (32.0-36.0); MEAN CELL VOLUME 70.6 fl (80-96); MEAN PLT VOLUME 7.7 fl (7.5-11.1); MONO % 6.6 % (3.8-10.2); NEUT % 78.7 % (42.8-82.8); PLATELET COUNT 521 10^3/uL (134-434); RBC 4.78 M/mm3 (3.60-5.2); RDW 18.9 % (11.6-15.6); WHITE BLOOD COUNT 8.5 K/mm3 (4.0-10.0)
[2021-11-05 04:11] LABS: CHLORIDE 99 mmol/L (98-107); SODIUM 134 mmol/L (136-145)
[2021-11-05 04:12] LABS: MAGNESIUM 2.3 mg/dL (1.8-2.4)
[2021-11-05 04:13] LABS: CALCIUM 9.5 mg/dL (8.5-10.1)
[2021-11-05 04:14] LABS: ALBUMIN 3.3 g/dl (3.4-5.0); ANION GAP 12 MMOL/L (8-16); BLOOD UREA NITROGEN 30.2 mg/dL (7-18); CO2 23 mmol/L (21-32); GLUCOSE,RANDOM 156 mg/dL (74-106)
[2021-11-05 04:17] LABS: CREATININE 1.1 mg/dL (0.55-1.3); SGOT/AST 18 U/L (15-37); SGPT/ALT 19 U/L (13-61)
[2021-11-05 04:18] LABS: BILIRUBIN,TOTAL 0.5 mg/dL (0.2-1); TOT PROT 8.3 g/dl (6.4-8.2)
[2021-11-05 04:20] LABS: ALK PHOS 99 U/L (45-117)
[2021-11-05 04:21] LABS: INR 1.46 (0.83-1.09); PROTHROMBIN TIME (PATIENT) 16.9 SEC (9.7-13.0)
[2021-11-05 04:24] LABS: URINE APPEARANCE CLEAR; URINE BILIRUBIN NEGATIVE (NEGATIVE); URINE COLOR YELLOW; URINE GLUCOSE (UA) NEGATIVE (NEGATIVE); URINE KETONE NEGATIVE (NEGATIVE); URINE LEUK ESTERASE NEGATIVE (NEGATIVE); URINE NITRITE NEGATIVE (NEGATIVE); URINE PROTEIN NEGATIVE (NEGATIVE); URINE UROBILINOGEN 0.2 mg/dL (0.2-1.0)
[2021-11-05 04:24] LABS: ACTIVATED PTT 29.6 SECONDS (25.2-36.5)
[2021-11-05 04:48] VITALS: BMI 24.7
[2021-11-05] MEDS ORDERED: PIPERACILLIN/TAZOB 4.5 GM 4.5 GM in DEXTROSE 5%-WATER 100 ML IVPB ONE (05:46)
[2021-11-05 05:48] LABS: LACTIC ACID 2.7 mmol/L (0.4-2.0)
[2021-11-05 07:20] LABS: N-TERMINAL BNP 3177.5 pg/ml (5-125)
[2021-11-05] MEDS ORDERED: FAMOTIDINE 10 MG TABLET PO ONE (08:51)
[2021-11-05] MEDS ORDERED: LORazepam 2 MG/ML SDV VIAL IVPUSH PRN (09:38)
[2021-11-05] MEDS: LIDOCAINE 5% TOPICAL PATCH TP SCH (11:00)
[2021-11-05] MEDS: LISINOPRIL 5 MG TABLET PO SCH (11:00)
[2021-11-05] MEDS: APIXABAN 5 MG TABLET PO SCH ×2 (11:00→21:55)
[2021-11-05] MEDS: metoPROLOL SUCCINATE 25 MG TAB.SR.24H (FP) PO SCH (11:00)
[2021-11-05 11:21] LABS: ARTERIAL BLD GAS O2 SATURATION 38.5 % (95-98); ARTERIAL BLOOD GAS BASE EXCESS -2.1 mmol/L (-2-2); ARTERIAL BLOOD GAS pH 7.338 (7.350-7.450)
[2021-11-05] MEDS ORDERED: APIXABAN 5 MG TABLET ONE ×2 (11:23→21:51)
[2021-11-05] MEDS ORDERED: FAMOTIDINE 10 MG TABLET ONE (11:23)
[2021-11-05] MEDS ORDERED: CARBIDOPA/LEVODOPA 25/100 TABLET (FP) ONE ×2 (11:24→21:51)
[2021-11-05] MEDS ORDERED: LISINOPRIL 5 MG TABLET ONE (11:24)
[2021-11-05] MEDS ORDERED: metoPROLOL SUCCINATE 25 MG TAB.SR.24H (FP) ONE (11:24)
[2021-11-05] MEDS ORDERED: LIDOCAINE 5% TOPICAL PATCH ONE (11:24)
[2021-11-05 11:25] LABS: ALLENS TEST POSITIVE
[2021-11-05 11:27] LABS: ARTERIAL BLOOD GAS PO2 23.8 mmHg (80-100)
[2021-11-05] MEDS: INSULIN SLIDING SCALE (NOVOLOG) 1 VIAL SQ SCH ×2 (11:58→17:25)
[2021-11-05] MEDS ORDERED: FUROSEMIDE 40 MG/4 ML INJECTABLE VIAL ONE (14:40)
[2021-11-05] MEDS ORDERED: REMDESIVIR 200 MG in SODIUM CHLORIDE 250 ML IVPB ONE (15:00)
[2021-11-05] MEDS: FUROSEMIDE 40 MG/4 ML INJECTABLE VIAL IVPUSH SCH (15:00)
[2021-11-05] MEDS ORDERED: DEXAMETHASONE SOD PHOSPHATE 10 MG/1 ML VIAL ONE (16:39)
[2021-11-05] MEDS: DEXAMETHASONE SOD PHOSPHATE 10 MG/1 ML VIAL IVPUSH SCH (17:00)
[2021-11-05] MEDS ORDERED: ATORVASTATIN CA 40 MG TABLET (FP) ONE (21:51)
[2021-11-05] MEDS: ATORVASTATIN CA 40 MG TABLET (FP) PO SCH (21:55)
[2021-11-06 08:29] LABS: BASO % 0.4 % (0-2.0); HEMATOCRIT 31.2 % (32.4-45.2); HEMOGLOBIN 9.7 GM/dL (10.7-15.3); LYMPH % 14.7 % (8-40); MCH 22.2 pg (25.7-33.7); MCHC 31.1 g/dl (32.0-36.0); MEAN CELL VOLUME 71.3 fl (80-96); MEAN PLT VOLUME 8.1 fl (7.5-11.1); MONO % 4.4 % (3.8-10.2); NEUT % 80.5 % (42.8-82.8); PLATELET COUNT 431 10^3/uL (134-434); RBC 4.37 M/mm3 (3.60-5.2); RDW 18.5 % (11.6-15.6); WHITE BLOOD COUNT 4.7 K/mm3 (4.0-10.0)
[2021-11-06] MEDS: LIDOCAINE PATCH REMOVAL MC SCH (10:16)
[2021-11-06] MEDS ORDERED: metoPROLOL SUCCINATE 25 MG TAB.SR.24H (FP) ONE (10:22)
[2021-11-06] MEDS ORDERED: APIXABAN 5 MG TABLET ONE (10:22)
[2021-11-06] MEDS ORDERED: DEXAMETHASONE SOD PHOSPHATE 10 MG/1 ML VIAL ONE (10:22)
[2021-11-06] MEDS ORDERED: LISINOPRIL 5 MG TABLET ONE (10:22)
[2021-11-06] MEDS ORDERED: CARBIDOPA/LEVODOPA 25/100 TABLET (FP) ONE (10:23)
[2021-11-06] MEDS ORDERED: FUROSEMIDE 40 MG/4 ML INJECTABLE VIAL ONE ×2 (10:23→14:05)
[2021-11-06] MEDS: TIOTROPIUM BROMIDE 2.5 MCG (SPIRIVA) RESPIMAT INHALER IH SCH ×2 (10:26→10:30)
[2021-11-06] MEDS: FUROSEMIDE 40 MG/4 ML INJECTABLE VIAL IVPUSH SCH ×2 (10:26→14:05)
[2021-11-06] MEDS: APIXABAN 5 MG TABLET PO SCH (10:26)
[2021-11-06] MEDS: DEXAMETHASONE SOD PHOSPHATE 10 MG/1 ML VIAL IVPUSH SCH (10:26)
[2021-11-06] MEDS: LIDOCAINE 5% TOPICAL PATCH TP SCH (10:27)
[2021-11-06] MEDS: LISINOPRIL 5 MG TABLET PO SCH (10:29)
[2021-11-06] MEDS: metoPROLOL SUCCINATE 25 MG TAB.SR.24H (FP) PO SCH (10:29)
[2021-11-06] MEDS: INSULIN SLIDING SCALE (NOVOLOG) 1 VIAL SQ SCH ×2 (10:41→13:11)
[2021-11-06] MEDS: REMDESIVIR 100 MG in SODIUM CHLORIDE 250 ML IVPB SCH (14:03)
[2021-11-07] MEDS: INSULIN SLIDING SCALE (NOVOLOG) 1 VIAL SQ SCH ×4 (00:37→15:00)
[2021-11-07] MEDS ORDERED: APIXABAN 5 MG TABLET ONE ×2 (00:59→10:46)
[2021-11-07] MEDS ORDERED: ATORVASTATIN CA 40 MG TABLET (FP) ONE (01:00)
[2021-11-07] MEDS ORDERED: CARBIDOPA/LEVODOPA 25/100 TABLET (FP) ONE ×2 (01:00→10:47)
[2021-11-07] MEDS: ATORVASTATIN CA 40 MG TABLET (FP) PO SCH ×2 (01:05→23:31)
[2021-11-07] MEDS: APIXABAN 5 MG TABLET PO SCH ×3 (01:05→23:31)
[2021-11-07] MEDS: LIDOCAINE PATCH REMOVAL MC SCH ×2 (01:05→23:31)
[2021-11-07] MEDS ORDERED: LORazepam 2 MG/ML SDV VIAL IVPUSH ONE (01:09)
[2021-11-07] MEDS ORDERED: FUROSEMIDE 40 MG/4 ML INJECTABLE VIAL ONE ×2 (07:12→15:04)
[2021-11-07] MEDS: FUROSEMIDE 40 MG/4 ML INJECTABLE VIAL IVPUSH SCH ×2 (07:23→15:13)
[2021-11-07] MEDS ORDERED: DEXAMETHASONE SOD PHOSPHATE 4 MG/1 ML VIAL ONE (10:47)
[2021-11-07] MEDS ORDERED: LIDOCAINE 5% TOPICAL PATCH ONE (10:47)
[2021-11-07] MEDS ORDERED: metoPROLOL SUCCINATE 25 MG TAB.SR.24H (FP) ONE (10:47)
[2021-11-07] MEDS ORDERED: LISINOPRIL 5 MG TABLET ONE (10:47)
[2021-11-07] MEDS: LISINOPRIL 5 MG TABLET PO SCH (10:53)
[2021-11-07] MEDS: metoPROLOL SUCCINATE 25 MG TAB.SR.24H (FP) PO SCH (10:53)
[2021-11-07] MEDS: DEXAMETHASONE SOD PHOSPHATE 10 MG/1 ML VIAL IVPUSH SCH (10:53)
[2021-11-07] MEDS: TIOTROPIUM BROMIDE 2.5 MCG (SPIRIVA) RESPIMAT INHALER IH SCH (10:53)
[2021-11-07] MEDS: LIDOCAINE 5% TOPICAL PATCH TP SCH (10:54)
[2021-11-07] MEDS ORDERED: metoPROLOL SUCCINATE 25 MG TAB.SR.24H (FP) PO ONE (12:24)
[2021-11-07] MEDS: REMDESIVIR 100 MG in SODIUM CHLORIDE 250 ML IVPB SCH (15:13)
[2021-11-08] MEDS: INSULIN SLIDING SCALE (NOVOLOG) 1 VIAL SQ SCH ×3 (06:27→16:45)
[2021-11-08] MEDS: FUROSEMIDE 40 MG/4 ML INJECTABLE VIAL IVPUSH SCH ×2 (06:27→14:08)
[2021-11-08 07:40] LABS: BASO % 0.1 % (0-2.0); HEMATOCRIT 33.1 % (32.4-45.2); HEMOGLOBIN 10.1 GM/dL (10.7-15.3); LYMPH % 14.7 % (8-40); MCH 21.3 pg (25.7-33.7); MCHC 30.5 g/dl (32.0-36.0); MEAN CELL VOLUME 69.7 fl (80-96); MEAN PLT VOLUME 8.1 fl (7.5-11.1); MONO % 10.3 % (3.8-10.2); NEUT % 74.9 % (42.8-82.8); PLATELET COUNT 583 10^3/uL (134-434); RBC 4.75 M/mm3 (3.60-5.2); RDW 18.4 % (11.6-15.6)
[2021-11-08 08:11] LABS: CALCIUM 9.4 mg/dL (8.5-10.1)
[2021-11-08 08:12] LABS: BLOOD UREA NITROGEN 28.5 mg/dL (7-18); MAGNESIUM 2.1 mg/dL (1.8-2.4)
[2021-11-08 08:15] LABS: CREATININE 0.9 mg/dL (0.55-1.3); PHOSPHOROUS 3.4 mg/dL (2.5-4.9)
[2021-11-08] MEDS: LISINOPRIL 5 MG TABLET PO SCH (09:08)
[2021-11-08] MEDS: APIXABAN 5 MG TABLET PO SCH ×2 (09:08→22:09)
[2021-11-08] MEDS: DEXAMETHASONE SOD PHOSPHATE 10 MG/1 ML VIAL IVPUSH SCH (09:10)
[2021-11-08] MEDS: LIDOCAINE 5% TOPICAL PATCH TP SCH (09:10)
[2021-11-08] MEDS: TIOTROPIUM BROMIDE 2.5 MCG (SPIRIVA) RESPIMAT INHALER IH SCH (11:35)
[2021-11-08] MEDS: REMDESIVIR 100 MG in SODIUM CHLORIDE 250 ML IVPB SCH (14:09)
[2021-11-08] MEDS: ATORVASTATIN CA 40 MG TABLET (FP) PO SCH (22:09)
[2021-11-08] MEDS: LIDOCAINE PATCH REMOVAL MC SCH (22:10)
[2021-11-09] MEDS: FUROSEMIDE 40 MG/4 ML INJECTABLE VIAL IVPUSH SCH ×2 (05:43→14:08)
[2021-11-09] MEDS: INSULIN SLIDING SCALE (NOVOLOG) 1 VIAL SQ SCH ×3 (06:25→17:32)
[2021-11-09] MEDS: LISINOPRIL 5 MG TABLET PO SCH (11:18)
[2021-11-09] MEDS: APIXABAN 5 MG TABLET PO SCH ×2 (11:19→21:12)
[2021-11-09] MEDS: DEXAMETHASONE SOD PHOSPHATE 10 MG/1 ML VIAL IVPUSH SCH (11:22)
[2021-11-09] MEDS: LIDOCAINE 5% TOPICAL PATCH TP SCH (11:25)
[2021-11-09] MEDS: TIOTROPIUM BROMIDE 2.5 MCG (SPIRIVA) RESPIMAT INHALER IH SCH (11:33)
[2021-11-09] MEDS ORDERED: ACETAMINOPHEN 1000 MG/100 ML BAG IVPB ONE (13:35)
[2021-11-09] MEDS: REMDESIVIR 100 MG in SODIUM CHLORIDE 250 ML IVPB SCH (16:08)
[2021-11-09] MEDS: ATORVASTATIN CA 40 MG TABLET (FP) PO SCH (21:12)
[2021-11-09] MEDS: LIDOCAINE PATCH REMOVAL MC SCH (21:12)
[2021-11-10] MEDS: INSULIN SLIDING SCALE (NOVOLOG) 1 VIAL SQ SCH ×3 (06:13→17:40)
[2021-11-10] MEDS: FUROSEMIDE 40 MG/4 ML INJECTABLE VIAL IVPUSH SCH (06:13)
[2021-11-10] MEDS: DEXAMETHASONE SOD PHOSPHATE 10 MG/1 ML VIAL IVPUSH SCH (09:26)
[2021-11-10] MEDS: APIXABAN 5 MG TABLET PO SCH ×2 (09:26→21:48)
[2021-11-10] MEDS: LISINOPRIL 5 MG TABLET PO SCH (09:26)
[2021-11-10] MEDS: LIDOCAINE 5% TOPICAL PATCH TP SCH (09:27)
[2021-11-10] MEDS: TIOTROPIUM BROMIDE 2.5 MCG (SPIRIVA) RESPIMAT INHALER IH SCH (09:28)
[2021-11-10] MEDS: FUROSEMIDE 20 MG TABLET (FP) PO SCH (14:42)
[2021-11-10] MEDS ORDERED: METOPROLOL TARTRATE 50 MG TABLET (FP) PO ONE (18:27)
[2021-11-10] MEDS: LIDOCAINE PATCH REMOVAL MC SCH (21:48)
[2021-11-10] MEDS: ATORVASTATIN CA 40 MG TABLET (FP) PO SCH (21:48)
[2021-11-11] MEDS: FUROSEMIDE 20 MG TABLET (FP) PO SCH ×2 (05:30→13:35)
[2021-11-11] MEDS: INSULIN SLIDING SCALE (NOVOLOG) 1 VIAL SQ SCH ×3 (06:03→17:16)
[2021-11-11 08:11] LABS: BASO % 0.1 % (0-2.0); HEMATOCRIT 34.2 % (32.4-45.2); HEMOGLOBIN 10.9 GM/dL (10.7-15.3); LYMPH % 17.3 % (8-40); MCHC 31.7 g/dl (32.0-36.0); MEAN CELL VOLUME 69.5 fl (80-96); MEAN PLT VOLUME 8.3 fl (7.5-11.1); MONO % 12.1 % (3.8-10.2); NEUT % 70.5 % (42.8-82.8); PLATELET COUNT 452 10^3/uL (134-434); RBC 4.93 M/mm3 (3.60-5.2); RDW 18.6 % (11.6-15.6); WHITE BLOOD COUNT 9.1 K/mm3 (4.0-10.0)
[2021-11-11 08:19] LABS: ALBUMIN 2.8 g/dl (3.4-5.0); BLOOD UREA NITROGEN 29.8 mg/dL (7-18); CALCIUM 8.9 mg/dL (8.5-10.1); MAGNESIUM 2.2 mg/dL (1.8-2.4)
[2021-11-11 08:22] LABS: CREATININE 0.9 mg/dL (0.55-1.3)
[2021-11-11 08:24] LABS: BILIRUBIN,TOTAL 0.7 mg/dL (0.2-1); TOT PROT 6.9 g/dl (6.4-8.2)
[2021-11-11] MEDS: DEXAMETHASONE SOD PHOSPHATE 10 MG/1 ML VIAL IVPUSH SCH (09:03)
[2021-11-11] MEDS: APIXABAN 5 MG TABLET PO SCH ×2 (09:03→22:30)
[2021-11-11] MEDS: LISINOPRIL 5 MG TABLET PO SCH (09:05)
[2021-11-11] MEDS: LIDOCAINE 5% TOPICAL PATCH TP SCH (09:05)
[2021-11-11] MEDS: TIOTROPIUM BROMIDE 2.5 MCG (SPIRIVA) RESPIMAT INHALER IH SCH (09:11)
[2021-11-11] MEDS ORDERED: INSULIN SLIDING SCALE (NOVOLOG) 1 VIAL SQ SCH (16:59)
[2021-11-11] MEDS ORDERED: INSULIN (NOVOLOG) ASPART 100 UNITS/ML 10ML VIAL SQ ONE (17:09)
[2021-11-11] MEDS: ATORVASTATIN CA 40 MG TABLET (FP) PO SCH (22:30)
[2021-11-11] MEDS: LIDOCAINE PATCH REMOVAL MC SCH (22:31)
[2021-11-11] MEDS: INSULIN (LEVEMIR) 100 UNITS/ML UNITS SQ SCH (22:31)
[2021-11-12] MEDS: INSULIN SLIDING SCALE (NOVOLOG) 1 VIAL SQ SCH ×3 (06:57→17:12)
[2021-11-12] MEDS: FUROSEMIDE 20 MG TABLET (FP) PO SCH ×2 (06:57→14:16)
[2021-11-12] MEDS ORDERED: INSULIN (LEVEMIR) 100 UNITS/ML UNITS SQ ONE (07:04)
[2021-11-12] MEDS: APIXABAN 5 MG TABLET PO SCH ×2 (10:05→21:17)
[2021-11-12] MEDS: LIDOCAINE 5% TOPICAL PATCH TP SCH (10:05)
[2021-11-12] MEDS: LISINOPRIL 5 MG TABLET PO SCH (10:06)
[2021-11-12] MEDS: TIOTROPIUM BROMIDE 2.5 MCG (SPIRIVA) RESPIMAT INHALER IH SCH (10:07)
[2021-11-12] MEDS: DEXAMETHASONE SOD PHOSPHATE 10 MG/1 ML VIAL IVPUSH SCH (11:11)
[2021-11-12] MEDS ORDERED: ACETAMINOPHEN 1000 MG/100 ML BAG IVPB ONE (20:39)
[2021-11-12] MEDS: LIDOCAINE PATCH REMOVAL MC SCH (21:18)
[2021-11-12] MEDS: INSULIN (LEVEMIR) 100 UNITS/ML UNITS SQ SCH (21:18)
[2021-11-12] MEDS: ATORVASTATIN CA 40 MG TABLET (FP) PO SCH (21:18)
[2021-11-13] MEDS: ACETAMINOPHEN 325 MG TABLET (FP) PO PRN (05:47)
[2021-11-13] MEDS: FUROSEMIDE 20 MG TABLET (FP) PO SCH ×2 (05:47→14:13)
[2021-11-13] MEDS: INSULIN SLIDING SCALE (NOVOLOG) 1 VIAL SQ SCH ×3 (06:00→17:04)
[2021-11-13] MEDS: LISINOPRIL 5 MG TABLET PO SCH (11:42)
[2021-11-13] MEDS: APIXABAN 5 MG TABLET PO SCH ×2 (11:44→21:27)
[2021-11-13] MEDS: DEXAMETHASONE SOD PHOSPHATE 10 MG/1 ML VIAL IVPUSH SCH (11:45)
[2021-11-13] MEDS: LIDOCAINE 5% TOPICAL PATCH TP SCH (11:46)
[2021-11-13] MEDS: TIOTROPIUM BROMIDE 2.5 MCG (SPIRIVA) RESPIMAT INHALER IH SCH (11:47)
[2021-11-13] MEDS: ATORVASTATIN CA 40 MG TABLET (FP) PO SCH (21:27)
[2021-11-13] MEDS: INSULIN (LEVEMIR) 100 UNITS/ML UNITS SQ SCH (21:27)
[2021-11-13] MEDS: LIDOCAINE PATCH REMOVAL MC SCH (21:27)
[2021-11-14] MEDS: ACETAMINOPHEN 325 MG TABLET (FP) PO PRN (05:28)
[2021-11-14] MEDS: FUROSEMIDE 20 MG TABLET (FP) PO SCH ×2 (05:28→15:10)
[2021-11-14] MEDS: INSULIN SLIDING SCALE (NOVOLOG) 1 VIAL SQ SCH ×2 (06:03→12:12)
[2021-11-14] MEDS: DEXAMETHASONE SOD PHOSPHATE 10 MG/1 ML VIAL IVPUSH SCH (09:17)
[2021-11-14] MEDS: APIXABAN 5 MG TABLET PO SCH (09:18)
[2021-11-14] MEDS: LIDOCAINE 5% TOPICAL PATCH TP SCH (09:18)
[2021-11-14] MEDS: LISINOPRIL 5 MG TABLET PO SCH (09:21)
[2021-11-14] MEDS: TIOTROPIUM BROMIDE 2.5 MCG (SPIRIVA) RESPIMAT INHALER IH SCH (09:21)
[2021-11-14] MEDS ORDERED: ACETAMINOPHEN 1000 MG/100 ML BAG IVPB ONE (10:45)
[2021-11-14 15:45] VITALS: BP 92/53; PULSE 82; TEMP 98.1
== END 2021-11-14 18:29 | disposition home or self-care (01) | DRG 177 ==
LOC: JER 02:32 → JERBED 06:22 → J4S 11-07 22:45
PROVIDERS: ADMIT Internal Medicine; ATTEND Nurse Practitioner Family
PROC: XW033E5 Introduction of Remdesivir Anti-infective into Peripheral Vein, Percutaneous Approach, New Technology Group 5 (ICD-10-PCS; principal; 2021-11-06)
DX: U07.1 COVID-19 (principal); J12.82 Pneumonia due to coronavirus disease 2019; J96.01 Acute respiratory failure with hypoxia; I50.32 Chronic diastolic (congestive) heart failure; I48.20 Chronic atrial fibrillation, unspecified; I48.0 Paroxysmal atrial fibrillation; I25.10 Atherosclerotic heart disease of native coronary artery without angina pectoris; G20 Parkinson's disease; F03.90 Unspecified dementia, unspecified severity, without behavioral disturbance, psychotic disturbance, mood disturbance, and anxiety; I11.0 Hypertensive heart disease with heart failure; I25.2 Old myocardial infarction; F41.9 Anxiety disorder, unspecified; E11.9 Type 2 diabetes mellitus without complications; R56.9 Unspecified convulsions; M25.562 Pain in left knee; M25.561 Pain in right knee; Z95.1 Presence of aortocoronary bypass graft; Z95.5 Presence of coronary angioplasty implant and graft
CPT/HCPCS: 36415; 36600; 71045-TC-FY; 80048; 80053; 81003; 82728; 82803; 82962; 83605; 83735; 83880; 84100; 84146; 84439; 84443; 84481; 84484; 85025; 85610; 85730; 86140; 87086; 93005; 93010; 94761; 97116-GP; 97161-GP; 99285-25; C9399; C9803; J0131; J1100; U0003; U0005